=== PATIENT | female | born 1945 | race Caucasian/White ===

== ENCOUNTER → 2016-07-29 | Outpatient (REF) | payer MEDICARE | LOC: M LAB REF 16:45 | PROVIDERS: ATTEND Internal Medicine Medical Oncology | DX: C50.919 Malignant neoplasm of unspecified site of unspecified female breast (principal) ==

== ENCOUNTER → 2016-08-26 | Outpatient (REF) | payer MEDICARE | LOC: M LAB REF 16:39 | PROVIDERS: ATTEND Internal Medicine Medical Oncology | DX: C50.919 Malignant neoplasm of unspecified site of unspecified female breast (principal) ==

== ENCOUNTER → 2016-08-29 | Outpatient (REF) | payer MEDICARE ==
[2016-08-29 17:57] LABS: CALCIUM LEVEL 8.9 MG/DL (8.8-10.2)
== END ==
LOC: M SFHCCLAY 14:04
PROVIDERS: ATTEND Family Medicine
DX: E11.9 Type 2 diabetes mellitus without complications (principal)
CPT/HCPCS: 80048; 83036; G0463

== ENCOUNTER → 2016-09-09 | Outpatient (CLI) | payer MEDICARE ==
[~2016-09-09] MED LIST: GASTROGRAFIN SOLUTION 30ML (Q9963) As Ordered ONE; ISOVUE-370 76% 100ML VIAL (Q9967) As Ordered ONE
--- NOTE | 2016-09-09 16:47 | REP ---
CT CHEST WITH IV CONTRAST: CT chest was performed with the intravenous administration of 100 mL of Isovue-370. Sagittal and coronal reconstruction images are performed. COMPARISON: 02/04/2016. There are scattered interstitial fibrotic changes again identified which are stable. There is scattered pleural thickening particularly along the minor fissure. No new suspicious nodular opacities are seen and there are no acute infiltrates. There is no pleural or pericardial effusion. No significant adenopathy is seen in the axillary regions, mediastinal or hilar regions. Multiple metallic clips are seen in the right axilla. Thoracic aorta is normal in caliber with no aneurysm. There are mild arteriosclerotic calcifications of the thoracic aorta. There is no enlargement of the heart. There are degenerative changes of the spine without definite evidence of a bone lesion. IMPRESSION: Stable CT findings. Chronic fibrotic changes. No new nodule, mass or adenopathy. Signed by Channing Sanchez MD 09/09/2016 05:08 P
--- NOTE | 2016-09-09 16:53 | REP ---
CT ABDOMEN WITH AND WITHOUT IV CONTRAST: TECHNIQUE: Axial noncontrast images through the abdomen followed by contrast-enhanced images through the abdomen using 100 mL Isovue 370 intravenous contrast material, with coronal and sagittal reformations. The liver, spleen, adrenals, pancreas, and kidneys demonstrate no mass. There is no hydronephrosis bilaterally. No renal calculi are seen. Gallbladder is grossly unremarkable. Visualized abdominal aorta is normal in caliber. Mild atherosclerotic calcifications are present. There is no adenopathy. There is no free air or free fluid. There is no evidence of bowel thickening in the visualized abdomen. There is a small umbilical hernia containing fat. There are degenerative changes of the spine with no definite bone lesion. IMPRESSION: No suspicious mass or adenopathy. No free fluid. Small umbilical hernia containing fat. Signed by Channing Sanchez MD 09/09/2016 05:08 P
== END ==
LOC: M RAD 13:10
PROVIDERS: ATTEND Internal Medicine Medical Oncology
DX: C50.919 Malignant neoplasm of unspecified site of unspecified female breast (principal); K42.9 Umbilical hernia without obstruction or gangrene
CPT/HCPCS: 71260; 74170; Q9963; Q9967

== ENCOUNTER → 2016-09-23 | Outpatient (REF) | payer MEDICARE | LOC: M LAB REF 16:09 | PROVIDERS: ATTEND Internal Medicine Medical Oncology | DX: C50.919 Malignant neoplasm of unspecified site of unspecified female breast (principal) ==

== ENCOUNTER → 2016-10-03 | Outpatient (CLI) | payer MEDICARE ==
--- NOTE | 2016-10-03 15:13 | REPMRS ---
Patient History The patient states she had a clinical breast exam in 2016. Patient is postmenopausal and has history of breast cancer at age 56. Family history of breast cancer in sister at age 50 or over and unknown cancer in sister. Digital Mammo Screening Bilat: October 03, 2016 - Exam #: [id number] Bilateral CC and MLO view(s) were taken. Technologist: Bridget Potter, Technologist Prior study comparison: October 01, 2015, right breast digital mammo diagnostic unilateral performed at [facility]. September 20, 2015, bilateral digital mammo screening bilat performed at [facility]. FINDINGS: There are scattered fibroglandular densities. There has been no change in the appearance of the mammogram from the prior studies. There is a mild amount of residual fibroglandular tissue which is fairly symmetric. There is no interval development of dominant mass, architectural distortion, or clustered microcalcification suggestive of malignancy. ASSESSMENT: BI-RADS/ACR category 1 mammogram. Negative. Recommendation Routine screening mammogram in 1 year (for women over age 40). This mammogram was interpreted with the aid of an FDA-approved computer-aided dectection system. Electronically Signed By: Channing Sanchez MD 10/03/16 [id number]
== END ==
LOC: M RAD 14:18
PROVIDERS: ATTEND Internal Medicine Medical Oncology
DX: Z12.31 Encounter for screening mammogram for malignant neoplasm of breast (principal); Z85.3 Personal history of malignant neoplasm of breast; Z78.0 Asymptomatic menopausal state

== ENCOUNTER → 2016-10-24 | Outpatient (CLI) | payer MEDICARE ==
--- NOTE | 2016-10-24 15:45 | REP ---
MRI study of the brain without and with IV gadolinium: History: Breast carcinoma history. Headaches. Vision problems. No comparison brain imaging. Gadolinium enhancement dose: 15 ml of intravenous ProHance. Technique: Axial, sagittal, and coronal imaging planes are utilized. T1 and T2-weighted sequences include spin-echo, fast spin echo, FLAIR, and diffusion weighted sequences. MRI findings: No bony calvarial lesion is seen. There is a mucous retention cyst in the floor of the right maxillary sinus measuring 2.4 cm in greatest diameter. No intraorbital abnormality is seen. The skull base and deep facial soft tissues are unremarkable and symmetric. There is diffuse moderate cerebral atrophy. Small vessel atherosclerotic changes are seen in the periventricular and subcortical white matter of the supratentorial brain bilaterally. Diffusion weighted scans show no evidence to suggest restricted diffusion or acute ischemia. There is no evidence of hemorrhage or mass. Postcontrast images show no abnormal gadolinium enhancement. Impression: No evidence of intracranial mass or other acute intracranial lesion. Mucous retention cyst right maxillary sinus. Signed by Reji Braun MD 10/24/2016 05:59 P
== END ==
LOC: M RAD 12:50
PROVIDERS: ATTEND Internal Medicine Medical Oncology
DX: R51 Headache (principal); Z85.3 Personal history of malignant neoplasm of breast
CPT/HCPCS: 70553; A9576

== ENCOUNTER → 2016-11-20 | Outpatient (REF) | payer MEDICARE ==
[2016-11-20 19:13] LABS: PERCENT SATURATION 23.9 % (13.2-37.4)
== END ==
LOC: M LAB REF 16:29
PROVIDERS: ATTEND Internal Medicine Medical Oncology
DX: C50.919 Malignant neoplasm of unspecified site of unspecified female breast (principal)

== ENCOUNTER → 2016-12-18 | Outpatient (REF) | payer MEDICARE | LOC: M LAB REF 16:23 | PROVIDERS: ATTEND Internal Medicine Medical Oncology | DX: C50.919 Malignant neoplasm of unspecified site of unspecified female breast (principal); Z79.899 Other long term (current) drug therapy ==

== ENCOUNTER → 2017-01-02 | Outpatient (CLI) | payer MEDICARE ==
--- NOTE | 2017-01-02 21:15 | REP ---
RIGHT HUMERUS SERIES: 01/02/2017. Clinical history: Breast carcinoma. Pain. Evaluate for metastatic disease. Findings: Two-views show the shaft of the humerus intact. Humeral head and distal humerus at the elbow without fracture or destructive lesion. No abnormal soft-tissue calcification. Multiple surgical clips in the axilla and upper chest wall/breast on the right. No abnormal soft-tissue calcification. No destructive lesion or fracture of the visualized bones. Impression: 1. No plain film evidence for bony metastatic disease. Signed by Jaden Tolentino MD 01/03/2017 07:35 P
--- NOTE | 2017-01-02 21:53 | REP ---
RIGHT SHOULDER SERIES, COMPLETE: 01/02/2017. Clinical history: Breast carcinoma. Comparison: Right humerus this date. Findings: Three views are provided compared to the humerus series this same date, humeral head is without fracture, focal lesion. No subluxation, scapula, clavicle and ribs without fracture or focal lesion. No effusion, lateral pleural thickening apical pneumothorax. No abnormal soft-tissue calcification noted. Axillary surgical clips on the right on the chest wall clips. Impression: 1. Nose plain film evidence of a bony destructive lesion in the region of the shoulder joint clavicle, ribs and with the axillary surgical clips noted. This patient with known breast cancer. 2. Degenerative changes in the cervical spine seen only in part on the study Signed by Jaden Tolentino MD 01/03/2017 07:42 P
== END ==
LOC: M RAD 17:37
PROVIDERS: ATTEND Internal Medicine Medical Oncology
DX: C50.919 Malignant neoplasm of unspecified site of unspecified female breast (principal); M79.601 Pain in right arm

== ENCOUNTER → 2017-01-15 | Outpatient (REF) | payer MEDICARE ==
[~2017-01-15] MED LIST changes: -GASTROGRAFIN SOLUTION 30ML (Q9963) As Ordered ONE; +GLIP5TAB8 PO; +HYDR12CA PO; +IBRA125C PO; +INSULANT SC; -ISOVUE-370 76% 100ML VIAL (Q9967) As Ordered ONE; +LISI40TAB PO; +METF10004 PO; +OMEP40CA2 PO; +POLY150C4 PO; +SIMV20TA2 PO; +XARE10TA PO
== END ==
LOC: M LAB REF 16:39
PROVIDERS: ATTEND Internal Medicine Medical Oncology
DX: C50.919 Malignant neoplasm of unspecified site of unspecified female breast (principal)

== ENCOUNTER → 2017-01-23 | Outpatient (REF) | payer MEDICARE | LOC: M SFHCCLAY 11:38 | PROVIDERS: ATTEND Family Medicine | DX: E11.9 Type 2 diabetes mellitus without complications (principal) ==

== ENCOUNTER → 2017-01-28 | Outpatient (CLI) | payer MEDICARE ==
[~2017-01-28] VITALS: Ht 165.1 cm; Wt 87.1 kg
[~2017-01-28] MED LIST changes: +LIDOCAINE 2% INJ 100 MG/5 ML SYRINGE As Ordered ONE; +NS 1,000 ML IV ONE; +PROPOFOL 200 MG/20 ML VIAL As Ordered ONE
--- NOTE | 2017-01-28 13:51 | ROOR ---
Patient Name: Bel Santiago Procedure Date: 01/28/2017 1:27 PM Date of : 1945 Age: 71 Room: [facility] Gender: Female Note Status: Finalized Procedure: Upper GI endoscopy Indications: Iron deficiency anemia Providers: Jimy Acosta MD Referring MD: Myles Barber MD Requesting Provider: Medicines: Monitored Anesthesia Care Complications: No immediate complications. Procedure: Pre-Anesthesia Assessment: - The heart rate, respiratory rate, oxygen saturations, blood pressure, adequacy of pulmonary ventilation, and response to care were monitored throughout the procedure. The Endoscope was introduced through the mouth, and advanced to the second part of duodenum. The upper GI endoscopy was accomplished without difficulty. The patient tolerated the procedure well. Findings: The Z-line was variable and was found 40 cm from the incisors. No other significant abnormalities were identified in a careful examination of the stomach. The exam of the duodenum was otherwise normal. Biopsies for histology were taken with a cold forceps in the first portion of the duodenum for evaluation of celiac disease. The esophagus was normal. The stomach was normal. The examined duodenum was normal. Impression: - Z-line variable, 40 cm from the incisors. - Normal esophagus. - Normal stomach. - Normal examined duodenum. - Biopsies were taken with a cold forceps for evaluation of celiac disease. - The examination was otherwise normal. Recommendation: - Patient has a contact number available for emergencies. The signs and symptoms of potential delayed complications were discussed with the patient. Return to normal activities tomorrow. Written discharge instructions were provided to the patient. - High fiber diet. - Discharge patient to home. - Follow an antireflux regimen. - Continue present medications. - Await pathology results. - Telephone GI clinic for pathology results in 1 week. - Check Portal Online for Path Results.([email or web address]) - Return to referring physician. - The findings and recommendations were discussed with the patient's family. Jimy Acosta MD Jimy Acosta MD 01/28/2017 1:51:38 PM This report has been signed electronically. Number of Addenda: 0 Note Initiated On: 01/28/2017 1:27 PM Estimated Blood Loss: Estimated blood loss: none.
--- NOTE | 2017-01-28 14:13 | ROOR ---
Patient Name: Bel Santiago Procedure Date: 01/28/2017 1:28 PM Date of : 1945 Age: 71 [facility]: [facility] Gender: Female Note Status: Finalized Procedure: Total Colonoscopy + Biopsy Polypectomy Indications: Iron deficiency anemia Providers: Jimy Acosta MD Referring MD: Myles Barber MD Requesting Provider: Medicines: Monitored Anesthesia Care Complications: No immediate complications. Procedure: Pre-Anesthesia Assessment: - The heart rate, respiratory rate, oxygen saturations, blood pressure, adequacy of pulmonary ventilation, and response to care were monitored throughout the procedure. The Colonoscope was introduced through the anus and advanced to the cecum, identified by appendiceal orifice and ileocecal valve. The colonoscopy was performed without difficulty. The patient tolerated the procedure well. The quality of the bowel preparation was excellent. Findings: The perianal and digital rectal examinations were normal. Non-bleeding internal hemorrhoids were found during retroflexion. The hemorrhoids were small and Grade I (internal hemorrhoids that do not prolapse). A diminutive polyp was found in the splenic flexure. The polyp was sessile. The polyp was removed with a jumbo cold forceps. Resection and retrieval were complete. The exam was otherwise without abnormality on direct and retroflexion views. Impression: - Non-bleeding internal hemorrhoids. - One diminutive polyp at the splenic flexure, removed with a jumbo cold forceps. Resected and retrieved. - The examination was otherwise normal on direct and retroflexion views. - The exam was otherwise normal to the cecum. Recommendation: - Patient has a contact number available for emergencies. The signs and symptoms of potential delayed complications were discussed with the patient. Return to normal activities tomorrow. Written discharge instructions were provided to the patient. - High fiber diet. - Discharge patient to home. - Continue present medications. - Await pathology results. - Telephone GI clinic for pathology results in 1 week. - Repeat colonoscopy for symptoms only. - Check Portal Online for Path Results.([email or web address]) - The findings and recommendations were discussed with the patient's family. Jimy Acosta MD Jimy Acosta MD 01/28/2017 2:13:01 PM This report has been signed electronically. Number of Addenda: 0 Note Initiated On: 01/28/2017 1:28 PM Estimated Blood Loss: Estimated blood loss: none.
[2017-01-28 14:25] VITALS: BP 97/74
== END | disposition home or self-care (01) ==
LOC: M OPP 12:36
PROVIDERS: ATTEND Internal Medicine Gastroenterology
DX: D50.9 Iron deficiency anemia, unspecified (principal); D12.3 Benign neoplasm of transverse colon; K64.0 First degree hemorrhoids; K22.8 Other specified diseases of esophagus; K58.9 Irritable bowel syndrome, unspecified; I10 Essential (primary) hypertension; E78.5 Hyperlipidemia, unspecified; E10.9 Type 1 diabetes mellitus without complications; R12 Heartburn; Z86.718 Personal history of other venous thrombosis and embolism; F32.9 Major depressive disorder, single episode, unspecified; R06.02 Shortness of breath; M19.90 Unspecified osteoarthritis, unspecified site; Z78.0 Asymptomatic menopausal state; J45.909 Unspecified asthma, uncomplicated; G47.8 Other sleep disorders; G47.30 Sleep apnea, unspecified; R06.83 Snoring; Z85.3 Personal history of malignant neoplasm of breast; Z92.3 Personal history of irradiation; Z92.21 Personal history of antineoplastic chemotherapy; Z88.8 Allergy status to other drugs, medicaments and biological substances; Z91.048 Other nonmedicinal substance allergy status; Z79.84 Long term (current) use of oral hypoglycemic drugs; Z79.4 Long term (current) use of insulin; Z79.01 Long term (current) use of anticoagulants; Z79.899 Other long term (current) drug therapy; Z80.3 Family history of malignant neoplasm of breast; Z80.0 Family history of malignant neoplasm of digestive organs; Z80.41 Family history of malignant neoplasm of ovary

== ENCOUNTER → 2017-02-16 | Outpatient (REF) | payer MEDICARE ==
[~2017-02-16] MED LIST changes: -LIDOCAINE 2% INJ 100 MG/5 ML SYRINGE As Ordered ONE; -NS 1,000 ML IV ONE; -PROPOFOL 200 MG/20 ML VIAL As Ordered ONE
== END ==
LOC: M LAB REF 16:45
PROVIDERS: ATTEND Internal Medicine Medical Oncology
DX: C50.919 Malignant neoplasm of unspecified site of unspecified female breast (principal)

== ENCOUNTER → 2017-03-19 | Outpatient (REF) | payer MEDICARE ==
[2017-03-19 15:00] LABS: PERCENT SATURATION 22.3 % (13.2-45.0)
== END ==
LOC: M LAB REF 10:40
PROVIDERS: ATTEND Internal Medicine Medical Oncology
DX: C50.919 Malignant neoplasm of unspecified site of unspecified female breast (principal)

== ENCOUNTER → 2017-04-07 | Outpatient (CLI) | payer MEDICARE ==
[~2017-04-07] MED LIST changes: +GASTROGRAFIN SOLUTION 30ML (Q9963) As Ordered ONE; +ISOVUE-370 76% 100ML VIAL (Q9967) As Ordered ONE
--- NOTE | 2017-04-07 17:06 | REP ---
HISTORY: History of metastatic breast carcinoma with rising tumor markers. COMPARISON: CT abdomen only obtained 09/09/2016. CONTRAST: 100 mL of Isovue-370. The precontrast enhanced portion of the examination shows hepatic and splenic densities to be within normal limits and unchanged. There are no nephroliths. There are no choleliths. The contrast-enhanced portion of the examination shows the liver, gallbladder, spleen, pancreas, adrenal glands, and kidneys to be unchanged. The abdominal aorta and periaortic regions are unchanged. There is no evidence of a mass or adenopathy. There is no free fluid or free air. There is no significant change in the appearance of the bowel loops or their mesenteries. There is an unchanged, small fat containing ventral hernia. CT PELVIS: The bowel loops and their mesenteries are unchanged, remaining within normal limits. There is no free fluid or free air. There is no pelvic mass or adenopathy. Bone window technique throughout the exam shows chronic hip and spinal degenerative changes, status quo. IMPRESSION: There is no evidence of acute intraabdominal or intrapelvic disease with findings as described above. There has been no significant change from the prior exam. There are unchanged areas of fatty infiltration seen over each gluteal region likely secondary to deep intramuscular/subcutaneous injections of medications. This too is unchanged. Signed by Otto Lopez DO 04/08/2017 03:08 P
--- NOTE | 2017-04-07 17:25 | REP ---
REASON FOR EXAM: History of rising tumor markers with a diagnosis of metastatic breast carcinoma. All prior chest CTs were reviewed. The latest of which is dated 09/09/2016. CONTRAST UTILIZED: 100 mL of Isovue-370. The mediastinum and pulmonary sendy are essentially unchanged compared to the latest prior exams, however, there is a right hilar lymph node which may have increased slightly compared to 01/12/2014. The short axis dimension of this right hilar node measures 1.3 cm and it measured 1 cm on that 01/12/2014 exam. There are no pleural or pericardial effusions. The imaged upper abdomen will be discussed on the abdominal and pelvic CT obtained along with this exam at the same time. The images osseous structures show no significant changes compared to the prior exams. Evaluation of the lung colmenares shows stable areas of parenchymal scarring and pleural thickening. No new abnormal nodules, masses or opacities have developed since 09/09/2016. IMPRESSION: 1. Right hilar lymph node as described above. This needs additional followup. 2. Stable lung field findings as described above. Signed by Otto Lopez DO 04/08/2017 03:08 P
== END ==
LOC: M RAD 14:47
PROVIDERS: ATTEND Internal Medicine Medical Oncology
DX: C50.919 Malignant neoplasm of unspecified site of unspecified female breast (principal); C78.2 Secondary malignant neoplasm of pleura; R59.0 Localized enlarged lymph nodes; J98.4 Other disorders of lung
CPT/HCPCS: 71260; 74178; Q9963; Q9967

== ENCOUNTER → 2017-04-14 | Outpatient (REF) | payer MEDICARE ==
[~2017-04-14] MED LIST changes: -GASTROGRAFIN SOLUTION 30ML (Q9963) As Ordered ONE; -ISOVUE-370 76% 100ML VIAL (Q9967) As Ordered ONE
== END ==
LOC: M SFHCCLAY 13:53
PROVIDERS: ATTEND Family Medicine
DX: E11.9 Type 2 diabetes mellitus without complications (principal)

== ENCOUNTER → 2017-04-16 | Outpatient (REF) | payer MEDICARE | LOC: M LAB REF 12:51 | PROVIDERS: ATTEND Internal Medicine Medical Oncology | DX: C50.919 Malignant neoplasm of unspecified site of unspecified female breast (principal) ==

== ENCOUNTER → 2017-06-25 | Outpatient (REF) | payer MEDICARE | LOC: M SFHCCLAY 11:37 | PROVIDERS: ATTEND Family Medicine | DX: E11.9 Type 2 diabetes mellitus without complications (principal); R41.3 Other amnesia ==

== ENCOUNTER → 2017-07-09 | Outpatient (REF) | payer MEDICARE | LOC: M LAB REF 12:56 | DX: C50.211 Malignant neoplasm of upper-inner quadrant of right female breast (principal); C78.2 Secondary malignant neoplasm of pleura; Z79.818 Long term (current) use of other agents affecting estrogen receptors and estrogen levels | CPT/HCPCS: 86300 ==

== ENCOUNTER → 2017-07-14 | Outpatient (CLI) | payer MEDICARE ==
[~2017-07-14] MED LIST changes: +GASTROGRAFIN SOLUTION 30ML (Q9963) As Ordered; -GLIP5TAB8 PO; -HYDR12CA PO; -IBRA125C PO; -INSULANT SC; +ISOVUE-370 76% 100ML VIAL (Q9967) As Ordered; -LISI40TAB PO; -METF10004 PO; -OMEP40CA2 PO; -POLY150C4 PO; -SIMV20TA2 PO; -XARE10TA PO
== END ==
LOC: M RAD 14:46
DX: C50.919 Malignant neoplasm of unspecified site of unspecified female breast (principal)
CPT/HCPCS: Q9963

== ENCOUNTER → 2017-08-06 | Outpatient (REF) | payer MEDICARE ==
[2017-08-06 15:02] LABS: FERRITIN 30 NG/ML (8-252); IRON (FE) 107 UG/DL (50-170); TOTAL IRON BINDING CAPACITY 334 UG/DL (250-450)
== END ==
LOC: M LAB REF 13:58
DX: C50.919 Malignant neoplasm of unspecified site of unspecified female breast (principal)
CPT/HCPCS: 83550

== ENCOUNTER → 2017-08-27 | Outpatient (REF) | payer MEDICARE ==
[2017-08-27 19:19] LABS: ESTIMATED AVERAGE GLUCOSE 189 MG/DL (60-110); HEMOGLOBIN A1c 8.2 %
== END ==
LOC: M SFHCCLAY 10:51
DX: N76.1 Subacute and chronic vaginitis (principal); Z79.899 Other long term (current) drug therapy
CPT/HCPCS: 83036

== ENCOUNTER → 2017-09-03 | Outpatient (REF) | payer MEDICARE ==
[2017-09-04 10:07] LABS: CA15-3 ANTIGEN 155.3 U/ML (<32.4)
== END ==
LOC: M LAB REF 13:26
DX: C50.919 Malignant neoplasm of unspecified site of unspecified female breast (principal)
CPT/HCPCS: 86300

== ENCOUNTER → 2017-10-01 | Outpatient (REF) | payer MEDICARE ==
[2017-10-02 10:20] LABS: CA15-3 ANTIGEN 155.8 U/ML (<32.4)
== END ==
LOC: M LAB REF 18:03
DX: C50.919 Malignant neoplasm of unspecified site of unspecified female breast (principal)
CPT/HCPCS: 86300

== ENCOUNTER → 2017-11-06 | Outpatient (REF) | payer MEDICARE, BC ==
[2017-11-06 14:42] LABS: FERRITIN 29 NG/ML (8-252); IRON (FE) 89 UG/DL (50-170); PERCENT SATURATION 24.9 % (13.2-45.0); TOTAL IRON BINDING CAPACITY 357 UG/DL (250-450)
[2017-11-06 15:17] LABS: CA15-3 ANTIGEN 184.5 U/ML (<32.4)
== END ==
LOC: M LAB REF 14:05
DX: C50.211 Malignant neoplasm of upper-inner quadrant of right female breast (principal); C78.2 Secondary malignant neoplasm of pleura
CPT/HCPCS: 83550

== ENCOUNTER → 2017-11-11 | Outpatient (CLI) | payer MEDICARE, BC | LOC: M PLARAD 08:39 | DX: C50.211 Malignant neoplasm of upper-inner quadrant of right female breast (principal) | CPT/HCPCS: 78815 ==

== ENCOUNTER → 2017-11-18 | Outpatient (REF) | payer MEDICARE ==
[2017-11-19 13:48] LABS: ESTIMATED AVERAGE GLUCOSE 203 MG/DL (60-110); HEMOGLOBIN A1c 8.7 %
== END ==
LOC: M SFHCCLAY 16:11
DX: E11.9 Type 2 diabetes mellitus without complications (principal)
CPT/HCPCS: 83036

== ENCOUNTER → 2017-12-16 | Outpatient (REF) | payer MEDICARE ==
[2017-12-16 15:13] LABS: FREE T4 1.01 NG/DL (0.76-1.46)
[2017-12-18 12:56] LABS: CA15-3 ANTIGEN 210.2 U/ML (<32.4)
== END ==
LOC: M ONCM 11:12
DX: C50.211 Malignant neoplasm of upper-inner quadrant of right female breast (principal); C78.2 Secondary malignant neoplasm of pleura; R53.83 Other fatigue
CPT/HCPCS: 84443

== ENCOUNTER → 2018-01-14 | Outpatient (REF) | payer MEDICARE ==
[2018-01-19 11:02] LABS: CA15-3 ANTIGEN 195.5 U/ML (<32.4)
== END ==
LOC: M LAB REF 16:28
DX: C50.211 Malignant neoplasm of upper-inner quadrant of right female breast (principal); C78.2 Secondary malignant neoplasm of pleura
CPT/HCPCS: 86300

== ENCOUNTER → 2018-01-15 | Outpatient (CLI) | payer MEDICARE | LOC: M RAD 11:43 | DX: Z12.31 Encounter for screening mammogram for malignant neoplasm of breast (principal); N60.31 Fibrosclerosis of right breast; N60.32 Fibrosclerosis of left breast | CPT/HCPCS: 77067 ==

== ENCOUNTER → 2018-02-12 | Outpatient (CLI) | payer MEDICARE | LOC: M RAD 14:20 | DX: N28.9 Disorder of kidney and ureter, unspecified (principal); C79.81 Secondary malignant neoplasm of breast | CPT/HCPCS: 76775 ==

== ENCOUNTER → 2018-03-11 | Outpatient (REF) | payer MEDICARE ==
[2018-03-11 18:18] LABS: FERRITIN 50 NG/ML (8-252); IRON (FE) 80 UG/DL (50-170); PERCENT SATURATION 25.6 % (13.2-45.0); TOTAL IRON BINDING CAPACITY 312 UG/DL (250-450)
[2018-03-12 13:42] LABS: CA15-3 ANTIGEN 237.3 U/ML (<32.4)
== END ==
LOC: M LAB REF 17:38
DX: C50.211 Malignant neoplasm of upper-inner quadrant of right female breast (principal); C78.2 Secondary malignant neoplasm of pleura
CPT/HCPCS: 83550

== ENCOUNTER → 2018-04-05 | Outpatient (CLI) | payer MEDICARE | LOC: M RAD 12:10 | DX: N18.3 Chronic kidney disease, stage 3 (moderate) (principal) | CPT/HCPCS: 76775 ==

== ENCOUNTER → 2018-04-07 | Outpatient (REF) | payer MEDICARE ==
[2018-04-09 12:38] LABS: CA15-3 ANTIGEN 284.9 U/ML (<32.4)
== END ==
LOC: M LAB REF 17:17
DX: C50.211 Malignant neoplasm of upper-inner quadrant of right female breast (principal); C78.2 Secondary malignant neoplasm of pleura
CPT/HCPCS: 86300

== ENCOUNTER → 2018-04-16 | Outpatient (REF) | payer MEDICARE ==
[2018-04-16 13:50] LABS: BASO % 0.4 % (0.0-1.0); HEMATOCRIT 31.4 % (36.0-47.0); HEMOGLOBIN 10.9 g/dl (12.0-15.5); IMMATURE GRANULOCYTE % 0.4 % (0-3.0); LYMPH # 0.9 10^3/uL (1.5-4.5); LYMPH % 32.6 % (24.0-44.0); MEAN CORPUSCULAR HEMOGLOBIN 35.5 pg (27.0-33.0); MEAN CORPUSCULAR HGB CONC 34.7 g/dl (32.0-36.5); MEAN CORPUSCULAR VOLUME 102.3 fl (80.0-96.0); MONO # 0.1 10^3/uL (0.0-0.8); MONO % 5.1 % (0.0-5.0); NEUTROPHILS # 1.7 10^3/uL (1.8-7.7); NEUTROPHILS % 61.5 % (36.0-66.0); PLATELET COUNT, AUTOMATED 186 10^3/uL (150-450); RED BLOOD COUNT 3.07 10^6/uL (4.00-5.40); RED CELL DISTRIBUTION WIDTH 14.2 % (11.5-14.5); WHITE BLOOD COUNT 2.8 10^3/uL (4.0-10.0)
[2018-04-16 14:05] LABS: ALBUMIN 3.5 GM/DL (3.2-5.2); ALBUMIN/GLOBULIN RATIO 1.06 (1.00-1.93); ALKALINE PHOSPHATASE 63 U/L (45-117); ALT/SGPT 15 U/L (12-78); ANION GAP 6 MEQ/L (8-16); AST/SGOT 12 U/L (7-37); BILIRUBIN,TOTAL 0.4 MG/DL (0.2-1.0); BLOOD UREA NITROGEN 25 MG/DL (7-18); CALCIUM LEVEL 8.6 MG/DL (8.8-10.2); CARBON DIOXIDE LEVEL 32 MEQ/L (21-32); CHLORIDE LEVEL 102 MEQ/L (98-107); CREATININE FOR GFR 1.33 MG/DL (0.55-1.30); GLOMERULAR FILTRATION RATE 41.6 (>39); GLUCOSE, FASTING 164 MG/DL (70-100); POTASSIUM SERUM 3.9 MEQ/L (3.5-5.1); RHEUMATOID FACTOR QUANT < 10.0 IU/ML (<15.0); SODIUM LEVEL 140 MEQ/L (136-145); TOTAL PROTEIN 6.8 GM/DL (6.4-8.2)
[2018-04-16 14:09] LABS: ESTIMATED AVERAGE GLUCOSE 154 MG/DL (60-110)
[2018-04-16 14:16] LABS: ERYTHROCYTE SEDIMENTATION RATE 50 mm/hr (0-30)
[2018-04-16 15:45] LABS: FOLATE 20.5 NG/ML
[2018-04-18 14:13] LABS: VITAMIN E(ALPHA TOCOPHEROL) 11.4 mg/L (9.0-29.0); VITAMIN E(GAMMA TOCOPHEROL) 2.7 mg/L (0.5-4.9)
[2018-04-20 10:07] LABS: PTT LUPUS TYPE ANTICOAG SCREEN 2.6 (0-1.2)
[2018-04-20 10:17] LABS: LUPUS CONFIRM RATIO 1.1
[2018-04-20 10:27] LABS: NORMALIZED RATIO 2.36 (0.00-1.20)
[2018-04-20 13:49] LABS: ALBUMIN 4.04 GM/DL (3.29-5.55); ALBUMIN % 59.4 % (55.8-66.1); ALPHA-1-GLOBULIN % 4.7 % (2.9-4.9); ALPHA-1-GLOBULINS 0.32 GM/DL (0.17-0.41); ALPHA-2-GLOBULINS 0.67 GM/DL (0.42-0.99); ALPHA-2-GLOBULINS % 9.8 % (7.1-11.8); BETA-1-GLOBULINS 0.44 GM/DL (0.28-0.60); BETA-1-GLOBULINS % 6.4 % (4.7-7.2); BETA-2-GLOBULINS 0.32 GM/DL (0.19-0.55); BETA-2-GLOBULINS % 4.7 % (3.2-6.5); GAMMA GLOBULINS 1.02 GM/DL (0.65-1.58)
[2018-04-21 00:07] LABS: ANCA-ATYPICAL <1:20 titer (Neg:<1:20); ANTI DOUBLE STRAND-DNA AB 4 IU/mL (0-9); ANTINUCLEAR ANTIBODIES DIRECT Negative (Negative); CYTOPLASMIC NEUTROP AB ANCA-C <1:20 titer (Neg:<1:20); PERINUCLEAR AB ANCA-P <1:20 titer (Neg:<1:20); SJOGREN'S ANTI SS-A <0.2 AI (0.0-0.9); SJOGREN'S ANTI SS-B <0.2 AI (0.0-0.9)
[2018-04-21 08:48] LABS: VITAMIN B1 LEVEL WHOLE BLOOD 105.3 nmol/L (66.5-200.0); VITAMIN B6,PYRIDOXAL PHOSPHATE 4.4 ug/L (2.0-32.8)
[2018-04-23 09:44] LABS: HEXAGONAL PHASE PHOSPHOLIPID 15 sec (0-11)
== END ==
LOC: M LABNEURO 11:27
DX: G62.9 Polyneuropathy, unspecified (principal)
CPT/HCPCS: 82746

== ENCOUNTER → 2018-05-12 | Outpatient (CLI) | payer MEDICARE | LOC: M RAD 16:32 | DX: C50.211 Malignant neoplasm of upper-inner quadrant of right female breast (principal) | CPT/HCPCS: 71250 ==

== ENCOUNTER → 2018-06-01 | Outpatient (REF) | payer MEDICARE ==
[2018-06-02 11:50] LABS: ESTIMATED AVERAGE GLUCOSE 200 MG/DL (60-110); HEMOGLOBIN A1c 8.6 %
== END ==
LOC: M SFHCCLAY 16:14
DX: E11.22 Type 2 diabetes mellitus with diabetic chronic kidney disease (principal); N18.3 Chronic kidney disease, stage 3 (moderate); Z23 Encounter for immunization
CPT/HCPCS: 83036

== ENCOUNTER → 2018-08-12 | Outpatient (CLI) | payer MEDICARE ==
[~2018-08-12] MED LIST changes: +BASA100I SC; -GASTROGRAFIN SOLUTION 30ML (Q9963) As Ordered; +GASTROGRAFIN SOLUTION 30ML (Q9963) As Ordered ONE; +GLIP5TAB8 PO; +HYDR12CA PO; +HYDR1CAP25 PO; +IBRA100C PO; +IBRA125C PO; +INSULANT SC; -ISOVUE-370 76% 100ML VIAL (Q9967) As Ordered; +LISI40TA PO; +METF10004 PO; +OMEP40CA2 PO; +POLY150C4 PO; +SENO8.6T5 PO; +SIMV20TA2 PO; +VENL150C43 PO; +VICT18IN INJ; +XARE10TA PO
--- NOTE | 2018-08-12 15:20 | REP ---
CT abdomen with oral but without IV contrast: History: Metastatic breast carcinoma with increasing tumor markers. Comparison abdomen CT study is from May 12, 2018. There is no evidence of focal hepatic or splenic lesion. There is increased density material layering in the dependent portion of the gallbladder consistent with gravel like calculi or mineralized sludge. This is unchanged. No adrenal mass is seen. No upper abdominal mass or adenopathy is seen. No retroperitoneal adenopathy is observed. Small and large bowel loops are unremarkable. An epigastric hernia is seen transmitting a small quantity of omental fat. No bony destructive lesion is appreciated. 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 This measures 2.0 cm in greatest diameter. Impression: Gravel like stones versus sludge in the gallbladder. No known evidence of mass or adenopathy. No acute disease. 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 Electronically Signed by Reji Braun MD 08/12/2018 03:51 P
--- NOTE | 2018-08-12 15:31 | REP ---
CT of the chest without IV contrast: Comparison is the most recent prior study 05/12/2018. Clinical history: Carcinoma of the right breast with metastases. Increasing markers. There are nodular densities in the posterior pleura bilaterally have slightly increased in size. No pericardial effusions are identified. No lung masses or nodules are identified. No mediastinal or axillary lymph node enlargement are identified. In the absence of IV contrast the study is insensitive for hilar lymph node enlargement. Surgical clips accompanied by skin thickening in stromal thickening are again noted in the right axilla and right breast. These findings are unchanged. The thoracic aorta is unremarkable. Atheromatous calcification in the mitral annulus is again identified. Cardiac size is normal. There is no pericardial effusion. No lytic, blastic or destructive skeletal changes are identified. Impression: Posterior pleural nodular densities bilaterally are again identified and have slightly increased in size. Otherwise, no other interval change. Electronically Signed by Channing Traore MD 08/12/2018 03:22 P
== END ==
LOC: M RAD 13:13
PROVIDERS: ATTEND Internal Medicine Medical Oncology
DX: C50.119 Malignant neoplasm of central portion of unspecified female breast (principal)
CPT/HCPCS: 71250; 74160; Q9963

== ENCOUNTER → 2018-09-08 | Outpatient (REF) | payer MEDICARE ==
[~2018-09-08] MED LIST changes: +ASPI81CH32 PO; -GASTROGRAFIN SOLUTION 30ML (Q9963) As Ordered ONE
[2018-09-08 18:45] LABS: ALBUMIN 3.3 GM/DL (3.2-5.2); CALCIUM LEVEL 8.6 MG/DL (8.8-10.2); CREATININE FOR GFR 1.13 MG/DL (0.55-1.30); GLOMERULAR FILTRATION RATE 50.1 (>39); PHOSPHORUS LEVEL 3.9 MG/DL (2.5-4.9); POTASSIUM SERUM 4.4 MEQ/L (3.5-5.1)
[2018-09-08 18:47] LABS: HEMOGLOBIN A1c 8.9 %
== END ==
LOC: M SFHCCLAY 13:01
PROVIDERS: ATTEND Family Medicine
DX: E11.22 Type 2 diabetes mellitus with diabetic chronic kidney disease (principal); N18.3 Chronic kidney disease, stage 3 (moderate)

== ENCOUNTER → 2018-09-08 | Outpatient (REF) | payer MEDICARE | LOC: M LABDRAWC 16:25 | PROVIDERS: ATTEND Internal Medicine Hematology & Oncology | DX: C50.919 Malignant neoplasm of unspecified site of unspecified female breast (principal); E11.22 Type 2 diabetes mellitus with diabetic chronic kidney disease; N18.3 Chronic kidney disease, stage 3 (moderate) ==

== ENCOUNTER → 2018-09-15 | Outpatient (CLI) | payer MEDICARE ==
--- NOTE | 2018-09-15 12:00 | REP ---
PET/CT: HISTORY: Restaging breast carcinoma. COMPARISONS: Comparison PET/CT study November 11, 2017. Comparison CT study of the chest is from August 12, 2018. TECHNIQUE: 54 minutes following the intravenous injection of a 8.05 mCi dose of F-18 FDG, three-dimensional PET scintigraphy is acquired from the skull base to the proximal thighs. Triplanar noncontrast CT scanning is acquired through the same anatomic range for attenuation correction, and image registration with scan parameters optimized to minimize radiation exposure to the patient. PET scintigraphy and CT datasets were fused and displayed on a workstation with multiplanar and projection display capability. PET/CT FINDINGS: There is a new tiny right pleural effusion. There is no abnormal hypermetabolic uptake seen in the chest. There is slight asymmetry and minimal uptake in the region of the right pleural effusion with maximum standard uptake value 1.88. This is not hypermetabolic. No hilar or mediastinal hypermetabolic uptake is seen. No abnormal skeletal hypermetabolic uptake is appreciated. Head and neck soft tissues are unremarkable. No abnormal hypermetabolic uptake is seen in the abdomen or pelvis. IMPRESSION: New finding of very small right pleural effusion. There is slightly asymmetric uptake, not frankly hypermetabolic. Otherwise negative PET scintigraphy. Electronically Signed by Reji Braun MD 09/15/2018 12:26 P
== END ==
LOC: M PLARAD 08:43
PROVIDERS: ATTEND Internal Medicine Hematology & Oncology
DX: C50.211 Malignant neoplasm of upper-inner quadrant of right female breast (principal); J90 Pleural effusion, not elsewhere classified
CPT/HCPCS: 78815; A9552

== ENCOUNTER → 2018-09-30 | Outpatient (CLI) | payer MEDICARE ==
--- NOTE | 2018-09-30 15:45 | REP ---
BILATERAL DIAGNOSTIC MAMMOGRAM WITH 3D TOMOSYNTHESIS AND BILATERAL BREAST ULTRASOUND: Patient complains of a palpable lump in the upper outer quadrant of both breasts. These have been present for one month. The patient has a history of right breast cancer at age 56. There is a family history of two sisters with breast cancer. Comparison made with prior study 01/15/2018 as well as multiple other prior exams. The palpable lump is marked on the skin with a triangular marker for each breast. Mild to moderate scattered fibroglandular tissue is again seen with no change since prior study. There is no new mass. Coarse benign type calcifications are seen diffusely bilaterally with no new clusters of microcalcifications. Real-time sonographic evaluation of both breasts performed at the site of the palpable lump in the upper outer quadrant of each breast. In the region of 11-o'clock in the right breast, large benign calcifications are seen. In the left breast, in the region of 12-o'clock at the palpable lump similar macrocalcification is seen. No suspicious mass is seen bilaterally. IMPRESSION: ACR 2 benign. Mammography shows no new mass or suspicious clusters of microcalcifications. There is no suspicious mass sonographically at the site of the reported palpable lump in the upper outer quadrant of each breast. A negative mammogram and ultrasound should not deter biopsy if there is a clinically suspicious palpable mass present. Followup mammogram is recommended in one year. BIRADS 2: BI-RADS/ACR category 2 mammogram. Benign Findings. This mammogram was interpreted with the aid of an FDA-approved computer-aided detection system. The patient states she/he had a clinical breast exam in 09/2018. The patient letter being requested is M2. Electronically Signed by Channing Sanchez MD 09/30/2018 04:10 P
== END ==
LOC: M RAD 12:21
PROVIDERS: ATTEND Nurse Practitioner Family
DX: N63.11 Unspecified lump in the right breast, upper outer quadrant (principal); N63.21 Unspecified lump in the left breast, upper outer quadrant; Z85.3 Personal history of malignant neoplasm of breast; Z80.3 Family history of malignant neoplasm of breast; R92.0 Mammographic microcalcification found on diagnostic imaging of breast; R92.1 Mammographic calcification found on diagnostic imaging of breast
CPT/HCPCS: 76642; 77066; G0279

== ENCOUNTER → 2018-10-13 | Outpatient (CLI) | payer MEDICARE ==
[~2018-10-13] MED LIST changes: -ASPI81CH32 PO; +ASPI81CH33 PO
--- NOTE | 2018-10-13 14:50 | REP ---
WHOLE BODY BONE SCAN: HISTORY: Bone pain. Metastatic breast carcinoma. Comparison bone scan study: October 26, 2015. TECHNIQUE: 21.9 mCi of technetium 99m MDP is injected and standard whole body bone scan imaging is acquired. SCINTIGRAPHIC FINDINGS: There is an arthritic pattern of increased uptake in the knees bilaterally unchanged from the comparison study. Arthritic uptake pattern is again seen in the wrists and shoulders. Mild degenerative disc uptake is seen in the mid lumbar spine. There is uptake in bilateral kidneys and in the urinary bladder. There is no evidence to suggest skeletal metastatic disease. IMPRESSION: Arthritic and degenerative disc uptake pattern. No evidence to suggest skeletal metastatic disease. Electronically Signed by Reji Braun MD 10/13/2018 02:58 P
== END ==
LOC: M RAD 09:33
PROVIDERS: ATTEND Nurse Practitioner Family
DX: C50.919 Malignant neoplasm of unspecified site of unspecified female breast (principal); M85.89 Other specified disorders of bone density and structure, multiple sites; M51.86 Other intervertebral disc disorders, lumbar region; M89.8X9 Other specified disorders of bone, unspecified site
CPT/HCPCS: 78306; A9503

== ENCOUNTER → 2018-11-18 | Outpatient (REF) | payer MEDICARE | LOC: M LAB REF 14:24 | PROVIDERS: ATTEND Surgery | DX: D48.61 Neoplasm of uncertain behavior of right breast (principal); D48.62 Neoplasm of uncertain behavior of left breast ==

== ENCOUNTER → 2018-12-16 | Outpatient (CLI) | payer MEDICARE ==
[~2018-12-16] MED LIST changes: +CETI10TA4 PO; +FASL250I2 IM; +HYDR0.2O4 EX; +PROHANCE 279.3MG/ML 15ML VIAL (A9576) As Ordered ONE; +PROHANCE 279.3MG/ML 5ML VIAL (A9576) As Ordered ONE; +TYLE650T35 PO; +VICT18IN SC; +[UNRECOGNIZED DRUG - CODE] PV
--- NOTE | 2018-12-16 12:40 | REP ---
MRI BRAIN WITHOUT AND WITH CONTRAST: HISTORY: Breast carcinoma. CONTRAST: ProHance 8 mL. COMPARISON: 10/14/2016. Areas of increased signal intensity on T2-weighted images are present in the periventricular and subcortical white matter and [place]. This represents small vessel ischemic disease. There is no intraparenchymal hemorrhage, infarct, mass, or midline shift. There is no abnormal enhancement. The ventricular system and cortical sulci are dilated consistent with mild volume loss. There is no extracerebral collection. A retention cyst is present in the right maxillary sinus. IMPRESSION: 1. Small vessel ischemic disease. 2. Mild volume loss. Electronically Signed by Jluis Moore MD 12/16/2018 12:41 P
== END ==
LOC: M RAD 10:20
PROVIDERS: ATTEND Internal Medicine Hematology & Oncology
DX: C50.819 Malignant neoplasm of overlapping sites of unspecified female breast (principal); R47.9 Unspecified speech disturbances; R41.3 Other amnesia; I67.82 Cerebral ischemia
CPT/HCPCS: 70553; A9576

== ENCOUNTER 2018-12-23 12:42 | Day surgery (SDC) | payer MEDICARE ==
[~2018-12-23] VITALS: Ht 160 cm; Wt 81.6 kg
[~2018-12-23 12:42] MED LIST changes: +BALANCED SALT IRRIGATION SOLUTION 500ML BAG (FOR OR EYE MACHINE) As Ordered ONE; +CEFUROXIME 1MG/0.1ML INTRACAMERAL INJ As Ordered ONE; +DUOVISC (0.50ML VISCOAT/0.55ML PROVISC) OPHTH KIT As Ordered ONE; +LIDOCAINE 0.75%/EPINEPHRINE 0.025% IN BSS 1ML SYR INTRACAMERAL (OR ONLY) As Ordered ONE; +OFLOXACIN 0.3 % (OCUFLOX) OPTH SOL 5ML OS ONE; +PHENYLEPHRINE 2.5% OPHTH SOL 2ML OS ONE; +POVIDONE-IODINE 5% OPHTH PREP SOL 30ML As Ordered ONE; -PROHANCE 279.3MG/ML 15ML VIAL (A9576) As Ordered ONE; -PROHANCE 279.3MG/ML 5ML VIAL (A9576) As Ordered ONE; +PROPARACAINE 0.5% OPHTH SOL 15ML OS ONE; +TROPICAMIDE 1% OPHTH SOLN 2ML OS ONE
[2018-12-23] MEDS ORDERED: fentaNYL 100 MCG/2 ML INJECTION (J3010) As Ordered ONE (13:53)
[2018-12-23] MEDS ORDERED: MIDAZOLAM INJ 2 MG/2 ML VIAL (J2250) As Ordered ONE (13:53)
[2018-12-23 14:30] VITALS: BP 143/65
--- NOTE | 2018-12-24 07:52 | RO ---
DATE OF PROCEDURE: 12/23/2018 PREOPERATIVE DIAGNOSIS: 1. Visually significant nuclear sclerotic cataract left eye. POSTOPERATIVE DIAGNOSIS: 1. Visually significant nuclear sclerotic cataract left eye. PROCEDURE: 1. Cataract extraction with use of phacoemulsification and placement of intraocular lens, AU00T0 21.5 D, left eye. SURGEON: Macho Acosta DO WATER REUSE PROGRAM MANAGER: None. ANESTHESIA: Local with monitored anesthesia care (MAC). COMPLICATIONS: None. POSTOPERATIVE CONDITION: Stable. INDICATIONS FOR SURGERY: 1. Blurred vision affecting patients activities of daily living. DESCRIPTION OF PROCEDURE: The patient was seen in the preoperative area and properly identified. The correct operative eye was identified and marked. The patient received topical anesthetic, antibiotics, and topical dilating drops. The patient was then transferred to the operating room. The correct side was re-identified, and a time-out was performed. The eye was prepped and draped in a sterile fashion. The eyelids were isolated with Tegaderm tape, and the lids were held open with an adjustable speculum. A 1.0 mm paracentesis incision was made. Intraocular preservative-free Shugarcaine was then injected into the anterior chamber. Viscoelastic was then injected into the anterior chamber through the paracentesis. Using a 2.4 mm sharp-tipped keratome, the anterior chamber was entered via a temporal clear cornea incision. A continuous curvilinear capsulorrhexis was created with Utrata forceps. Hydrodissection was performed with balanced salt solution (BSS) on a blunt cannula until the nucleus was able to rotate freely. The crystalline lens was phacoemulsified and aspirated. Irrigation/aspiration was used to remove the cortical material. Cohesive viscoelastic was placed into the capsular bag to deepen it. The implant was placed into the capsular bag and allowed to unfold. Placement was confirmed by visualizing the anterior capsulorrhexis. Irrigation/aspiration was used to remove the viscoelastic. The clear corneal incision was hydrated with BSS on a blunt cannula. The lens was well positioned. The incisions were then tested for leaks and found to be negative. The eye was then palpated for appropriate pressure and adjusted accordingly with BSS. The eyelid speculum was then carefully removed. A shield was placed over the eye. The patient tolerated the procedure well and was discharged to the recovery unit in a stable condition.
== END 2018-12-23 14:48 | disposition home or self-care (01) ==
LOC: M SDC 12:42
PROVIDERS: ATTEND Ophthalmology
DX: H25.12 Age-related nuclear cataract, left eye (principal); I10 Essential (primary) hypertension; E78.5 Hyperlipidemia, unspecified; K58.8 Other irritable bowel syndrome; E11.9 Type 2 diabetes mellitus without complications; G47.30 Sleep apnea, unspecified; J45.909 Unspecified asthma, uncomplicated; Z79.4 Long term (current) use of insulin; Z79.899 Other long term (current) drug therapy; Z79.82 Long term (current) use of aspirin; Z88.8 Allergy status to other drugs, medicaments and biological substances
CPT/HCPCS: 66984; J2250; J3010; V2632

== ENCOUNTER 2019-01-06 11:46 | Day surgery (SDC) | payer MEDICARE ==
[~2019-01-06] VITALS: Ht 160 cm; Wt 79.8 kg
[~2019-01-06 11:46] MED LIST changes: +OFLOXACIN 0.3 % (OCUFLOX) OPTH SOL 5ML OD ONE; -OFLOXACIN 0.3 % (OCUFLOX) OPTH SOL 5ML OS ONE; +PHENYLEPHRINE 2.5% OPHTH SOL 2ML OD ONE; -PHENYLEPHRINE 2.5% OPHTH SOL 2ML OS ONE; +PROPARACAINE 0.5% OPHTH SOL 15ML OD ONE; -PROPARACAINE 0.5% OPHTH SOL 15ML OS ONE; +TROPICAMIDE 1% OPHTH SOLN 2ML OD ONE; -TROPICAMIDE 1% OPHTH SOLN 2ML OS ONE
[2019-01-06] MEDS ORDERED: MIDAZOLAM INJ 2 MG/2 ML VIAL (J2250) As Ordered ONE (12:43)
[2019-01-06] MEDS ORDERED: fentaNYL 100 MCG/2 ML INJECTION (J3010) As Ordered ONE (12:43)
[2019-01-06] MEDS ORDERED: HumaLOG INSULIN (NovoLOG) PER UNIT As Ordered ONE (12:55)
[2019-01-06] MEDS ORDERED: HumaLOG INSULIN (NovoLOG) PER UNIT SC ONE (13:15)
[2019-01-06 14:06] VITALS: BP 144/63
--- NOTE | 2019-01-07 08:20 | RO ---
DATE OF PROCEDURE: 01/06/2019 PREOPERATIVE DIAGNOSIS: 1. Visually significant nuclear sclerotic cataract right eye. POSTOPERATIVE DIAGNOSIS: 1. Visually significant nuclear sclerotic cataract right eye. PROCEDURE: 1. Cataract extraction with use of phacoemulsification and placement of intraocular lens, [id number], 22.0 D, right eye. SURGEON: Macho Acosta DO WELDER/INSTALLER: None. ANESTHESIA: Local with monitored anesthesia care (MAC). COMPLICATIONS: None. POSTOPERATIVE CONDITION: Stable. INDICATIONS FOR SURGERY: 1. Blurred vision affecting patients activities of daily living. DESCRIPTION OF PROCEDURE: The patient was seen in the preoperative area and properly identified. The correct operative eye was identified and marked. The patient received topical anesthetic, antibiotics, and topical dilating drops. The patient was then transferred to the operating room. The correct side was re-identified, and a time-out was performed. The eye was prepped and draped in a sterile fashion. The eyelids were isolated with Tegaderm tape, and the lids were held open with an adjustable speculum. A 1.0 mm paracentesis incision was made. Intraocular preservative-free Shugarcaine was then injected into the anterior chamber. Viscoelastic was then injected into the anterior chamber through the paracentesis. Using a 2.4 mm sharp-tipped keratome, the anterior chamber was entered via a temporal clear cornea incision. A continuous curvilinear capsulorrhexis was created with Utrata forceps. Hydrodissection was performed with balanced salt solution (BSS) on a blunt cannula until the nucleus was able to rotate freely. The crystalline lens was phacoemulsified and aspirated. Irrigation/aspiration was used to remove the cortical material. Cohesive viscoelastic was placed into the capsular bag to deepen it. The implant was placed into the capsular bag and allowed to unfold. Placement was confirmed by visualizing the anterior capsulorrhexis. Irrigation/aspiration was used to remove the viscoelastic. The clear corneal incision was hydrated with BSS on a blunt cannula. The lens was well positioned. The incisions were then tested for leaks and found to be negative. The eye was then palpated for appropriate pressure and adjusted accordingly with BSS. The eyelid speculum was then carefully removed. A shield was placed over the eye. The patient tolerated the procedure well and was discharged to the recovery unit in a stable condition.
== END 2019-01-06 14:17 | disposition home or self-care (01) ==
LOC: M SDC 11:46
PROVIDERS: ATTEND Ophthalmology
DX: H25.11 Age-related nuclear cataract, right eye (principal); I10 Essential (primary) hypertension; E78.5 Hyperlipidemia, unspecified; E11.9 Type 2 diabetes mellitus without complications; K21.9 Gastro-esophageal reflux disease without esophagitis; G47.30 Sleep apnea, unspecified; Z79.4 Long term (current) use of insulin; Z79.82 Long term (current) use of aspirin; Z79.899 Other long term (current) drug therapy
CPT/HCPCS: 66984; J2250; J3010; V2632

== ENCOUNTER → 2019-02-23 | Outpatient (REF) | payer MEDICARE ==
[~2019-02-23] MED LIST changes: -BALANCED SALT IRRIGATION SOLUTION 500ML BAG (FOR OR EYE MACHINE) As Ordered ONE; -CEFUROXIME 1MG/0.1ML INTRACAMERAL INJ As Ordered ONE; -DUOVISC (0.50ML VISCOAT/0.55ML PROVISC) OPHTH KIT As Ordered ONE; -FASL250I2 IM; +FULV250S IM; -LIDOCAINE 0.75%/EPINEPHRINE 0.025% IN BSS 1ML SYR INTRACAMERAL (OR ONLY) As Ordered ONE; -OFLOXACIN 0.3 % (OCUFLOX) OPTH SOL 5ML OD ONE; -PHENYLEPHRINE 2.5% OPHTH SOL 2ML OD ONE; -POVIDONE-IODINE 5% OPHTH PREP SOL 30ML As Ordered ONE; -PROPARACAINE 0.5% OPHTH SOL 15ML OD ONE; -TROPICAMIDE 1% OPHTH SOLN 2ML OD ONE
[2019-02-23 17:00] LABS: HEMOGLOBIN A1c 8.9 %
== END ==
LOC: M SFHCCLAY 15:26
PROVIDERS: ATTEND Family Medicine
DX: E11.22 Type 2 diabetes mellitus with diabetic chronic kidney disease (principal)

== ENCOUNTER → 2019-03-15 | Outpatient (CLI) | payer MEDICARE ==
--- NOTE | 2019-03-15 14:44 | REP ---
PET/CT: HISTORY: Restaging metastatic breast carcinoma. Elevated tumor markers. COMPARISONS: PET/CT September 15, 2018 as well as November 11, 2017. TECHNIQUE: 45 minutes following the intravenous injection of a 8.09 mCi dose of F-18 FDG, three-dimensional PET scintigraphy is acquired from the skull base to the proximal thighs. Triplanar noncontrast CT scanning is acquired through the same anatomic range for attenuation correction, and image registration with scan parameters optimized to minimize radiation exposure to the patient. PET scintigraphy and CT datasets were fused and displayed on a workstation with multiplanar and projection display capability. PET/CT FINDINGS: Head and neck soft tissues are unremarkable. There is mild arthritic uptake in the periarticular soft tissues about the shoulders, particularly on the left. There is no evidence of hypermetabolic axillary adenopathy. Postoperative changes are seen in the right axilla and right breast. There is a small quantity of right pleural fluid without discernible hypermetabolic uptake. No hilar or mediastinal hypermetabolic uptake is observed. No abnormal pulmonary parenchymal hypermetabolic uptake is seen. In the abdomen and pelvis, normal hepatic, splenic, gastrointestinal, and genitourinary FDG distribution is seen. No abnormal hypermetabolic uptake is seen in the abdomen or pelvis. No abnormal skeletal hypermetabolic uptake is appreciated. IMPRESSION: No abnormal hypermetabolic uptake is seen. There is a small quantity of right pleural fluid. Electronically Signed by Reji Braun MD 03/15/2019 03:31 P
== END ==
LOC: M PLARAD 10:42
PROVIDERS: ATTEND Nurse Practitioner Family
DX: C50.911 Malignant neoplasm of unspecified site of right female breast (principal); C79.89 Secondary malignant neoplasm of other specified sites
CPT/HCPCS: 78815; A9552

== ENCOUNTER → 2019-05-05 | Outpatient (REF) | payer MEDICARE ==
[~2019-05-05] MED LIST changes: -OMEP40CA2 PO; +OMEP40CA97 PO
[2019-05-05 18:19] LABS: FOLATE 19.8 NG/ML
== END ==
LOC: M LAB REF 16:42
PROVIDERS: ATTEND Nurse Practitioner Family
DX: N18.9 Chronic kidney disease, unspecified (principal); D63.1 Anemia in chronic kidney disease

== ENCOUNTER → 2019-05-20 | Outpatient (CLI) | payer MEDICARE ==
--- NOTE | 2019-05-20 14:27 | REP ---
Left humerus: Two views. History: Persistent pain. Findings: Two views of the left humerus demonstrate advanced glenohumeral osteoarthritis with spur formation and sclerosis. Subcortical cysts are seen in the humeral head. Periarticular soft tissue calcifications are noted. There is a possible 8 mm loose body just inferior to the acromion process. There is mild diffuse osteopenia. No fracture or other acute erosive abnormalities seen. Impression: Shoulder osteoarthritis with periarticular soft-tissue calcification. There is a possible loose body just inferior to the acromion process. Fuse osteopenia. No acute abnormality. Electronically Signed by eRji Braun MD 05/20/2019 02:19 P
== END ==
LOC: M RAD 11:47
PROVIDERS: ATTEND Nurse Practitioner Family
DX: M19.012 Primary osteoarthritis, left shoulder (principal); C50.911 Malignant neoplasm of unspecified site of right female breast

== ENCOUNTER → 2019-06-01 | Outpatient (REF) | payer MEDICARE ==
[2019-06-02 11:42] LABS: CALCIUM LEVEL 8.6 MG/DL (8.8-10.2); CREATININE FOR GFR 1.32 MG/DL (0.55-1.30); GLOMERULAR FILTRATION RATE 41.9 (>39); POTASSIUM SERUM 4.1 MEQ/L (3.5-5.1)
[2019-06-02 12:42] LABS: MAU/CREAT RATIO 2789.1 MCG/MG (0.0-30.0)
[2019-06-02 14:00] LABS: HEMOGLOBIN A1c 9.1 %
== END ==
LOC: M SFHCCLAY 14:33
PROVIDERS: ATTEND Family Medicine
DX: E11.9 Type 2 diabetes mellitus without complications (principal); Z23 Encounter for immunization
CPT/HCPCS: 80048; 82043; 82607; 83036; 90682; G0008; G0463

== ENCOUNTER → 2019-06-30 | Outpatient (REF) | payer MEDICARE ==
[~2019-06-30] MED LIST changes: +JARD1TAB PO; +LISI-542 PO; -SIMV20TA2 PO; +SIMV20TA22 PO
[2019-07-01 11:44] LABS: CALCIUM LEVEL 8.7 MG/DL (8.8-10.2); CREATININE FOR GFR 1.64 MG/DL (0.55-1.30); GLOMERULAR FILTRATION RATE 32.5 (>39); POTASSIUM SERUM 3.9 MEQ/L (3.5-5.1)
== END ==
LOC: M SFHCCLAY 16:09
PROVIDERS: ATTEND Family Medicine
DX: E11.21 Type 2 diabetes mellitus with diabetic nephropathy (principal)
CPT/HCPCS: 80048; G0463

== ENCOUNTER → 2019-08-16 | Outpatient (REF) | payer MEDICARE ==
[2019-08-16 15:51] LABS: CREATININE FOR GFR 1.25 MG/DL (0.55-1.30); GLOMERULAR FILTRATION RATE 44.5 (>39)
== END ==
LOC: M LAB REF 14:40 → M ONCM 14:40
PROVIDERS: ATTEND Physician Assistant Surgical
DX: M19.012 Primary osteoarthritis, left shoulder (principal)

== ENCOUNTER → 2019-09-05 | Outpatient (CLI) | payer MEDICARE ==
[~2019-09-05] MED LIST changes: +HEPARIN 1,000 UNITS/ML 10ML VIAL (FOR RADIOLOGY& DIALYSIS ONLY)(J1644-10) As Ordered ONE; +ISOVUE-300 61% 50ML VIAL (Q9967) As Ordered ONE; +LIDOCAINE 1% MDV 20ML VIAL As Ordered ONE; +MIDAZOLAM INJ 2 MG/2 ML VIAL (J2250) As Ordered ONE; +fentaNYL 100 MCG/2 ML INJECTION (J3010) As Ordered ONE
--- NOTE | 2019-09-05 11:59 | ROOPDOC ---
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 Ultrasound-guided access right common femoral artery 2. Arteriogram of the aortic arch 3. Selection right innominate artery and arteriogram 4. Selection right subclavian artery and arteriogram 5. Mynx closure right common femoral artery SURGEON: Jackeline Kimball MD ANESTHESIA: Local anesthesia 5 mL lidocaine. Moderate intravenous conscious sedation was supervised by Dr. Kimball. The patient was independently monitored by registered nurse a sign in the department of radiology using automated blood pressure, EKG, and pulse oximetry. The patient's detailed sedation record is probably stored in the hospital information system. The following is the brief sedation record: Start time 10:42, stop time 11:24, Versed 0.5 mg IV, fentanyl 50 g IV. CONTRAST: 24 mL Isovue-300 INDICATION FOR PROCEDURE: Ms. cartwright is a very pleasant 74-year-old patient with a recent history of dizzy spells. She's had a few episodes of falling out of bed and having difficulty getting back up due to dizziness, and she's also had an episode of dizziness after trying to take shirt off over her head and subsequently becoming quite dizzy. She denies right upper extremity claudication and has excellent perfusion to the right hand with 3+ radial pulse. An MRA suggested possible stenosis at the origin of the right subclavian and the right vertebral artery. We discussed the risks benefits and alternatives to an arteriogram of the aortic arch and a right subclavian arteriogram with possible angioplasty possible stent. And the patient was agreeable to proceed and informed consent was obtained. INTERPRETATION: 1. The aortic arch is widely patent with no flow limitations noted. The innominate artery originates fairly proximally on the ascending aorta and shows widely patent flow in today common carotid artery and the subclavian artery. No stenosis is noted at the origin of the subclavian artery. There is widely patent flow through large subclavian artery into the right upper extremity. The vertebral artery has some mild plaque at its origin, but this does not limit flow and flow is antegrade. Distal to this focal plaque at the origin, the vessel is large and well perfused. 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 The left vertebral artery is also widely patent. Images were taken with the patient's head to the right and to the left and no changes in vertebral flow were noted. The patient experienced no dizziness during the procedure, even with changes in head position. REPORT OF OPERATION: The patient was brought to the angiographic suite in stable condition and placed supine on the fluoroscopic table. Her bilateral groins were prepped and draped in a sterile fashion. A timeout was performed. Sedation was administered without consultation. We utilize light sedation to that we can continue to monitor the patient's neuro status as we would be working in the right innominate artery and around the right carotid artery. Local anesthesia was administered to skin and subcutaneous tissue over the right femoral vessel and a microneedle was used to access the artery under ultrasound guidance. A wire was passed through this access and a micro-sheath was placed. Through this access, under fluoroscopic guidance, we advanced Glidewire into the aortic arch into the ascending aorta. We exchanged R sheath for 6 Yemeni sheath and flushed the sheath was saline. We passed a pigtail catheter into the ascending aorta and and arteriogram of the aortic arch was performed. Please interpretation above. We attempted to cross into the innominate artery and the subclavian artery with the Glidewire, but due to challenges with the angulation of the origin of the innominate on the ascending aorta, this proved difficult. We then exchanged to sheath for a 70 cm 6 Yemeni sheath and flushed the sheath was saline. This was helpful to stabilize the wire within the aortic arch. We attempted to access with a Gleich cath, but we could only it is far as the origin of the right subclavian and it was challenging to get the wire to advance further due to angulation. We exchanged for a modified pigtail in the shape of a rim catheter. We advanced this over the wire and were able to place the catheter in the innominate artery. An arteriogram was performed, please interpretation above. We then advanced the catheter into the right subclavian artery and arteriograms were performed with the head in the right facing position in the left facing position. The findings are above. During repositioning of the patient she did not experience any dizzy spells or complaints. She remained alert and oriented 3 with full function of her bilateral upper and lower extremities and vision intact throughout the procedure. Care was taken not to over stimulate the carotid artery with the wire while trying to access the right subclavian artery. We then removed the catheter over the wire and flushed the sheath was saline. The sheath was exchanged for a short 6 Yemeni sheath in a Mynx closure device was deployed under fluoroscopic guidance with good hemostasis. Pressure was held at the right groin for 10 minutes and good hemostasis was noted. The patient was taken to recovery in stable condition. She tolerated the procedure and the sedation well. ESTIMATED BLOOD LOSS: Approximately 2 mL. COMPLICATIONS: None. PLAN: We'll plan to see the patient back in a week to check her groin access site. Although it can be frustrating if we do not elicit a diagnosis for her dizziness, it is always good to no that her arterial disease is not severe in the subclavian or vertebral artery. She can continue with workup with her primary care physician for her dizzy spells. She can continue her home medications and resume her preoperative diet. JACKELINE KIMBALL MD Sep 05, 2019 11:59
[2019-09-05 15:30] VITALS: BP 156/70
== END ==
LOC: M IRPRO 08:51
PROVIDERS: ATTEND Surgery Vascular Surgery
DX: R42 Dizziness and giddiness (principal); J44.9 Chronic obstructive pulmonary disease, unspecified; J45.909 Unspecified asthma, uncomplicated; Z85.3 Personal history of malignant neoplasm of breast

== ENCOUNTER → 2019-09-13 | Outpatient (REF) | payer MEDICARE ==
[~2019-09-13] MED LIST changes: -HEPARIN 1,000 UNITS/ML 10ML VIAL (FOR RADIOLOGY& DIALYSIS ONLY)(J1644-10) As Ordered ONE; -ISOVUE-300 61% 50ML VIAL (Q9967) As Ordered ONE; -LIDOCAINE 1% MDV 20ML VIAL As Ordered ONE; -MIDAZOLAM INJ 2 MG/2 ML VIAL (J2250) As Ordered ONE; -fentaNYL 100 MCG/2 ML INJECTION (J3010) As Ordered ONE
[2019-09-13 15:49] LABS: HEMOGLOBIN A1c 9.3 %
== END ==
LOC: M SFHCCLAY 11:37
PROVIDERS: ATTEND Family Medicine
DX: E11.22 Type 2 diabetes mellitus with diabetic chronic kidney disease (principal); I10 Essential (primary) hypertension

== ENCOUNTER → 2019-10-04 | Outpatient (CLI) | payer MEDICARE ==
--- NOTE | 2019-10-04 11:54 | REPMRS ---
Patient History The patient states she has not had a clinical breast exam in over a year. Family history of breast cancer at age 50 or over in sister, unknown cancer in sister. The patient has a personal history of breast cancer. Digital Woman Screen Mammo: October 04, 2019 - Exam #: [id number] Bilateral CC and MLO view(s) were taken. Technologist: Carol Lema, Technologist Prior study comparison: September 30, 2018, digital mammo diagnostic bilateral, performed at [facility]. January 15, 2018, bilateral digital mammo screening bilat, performed at [facility]. October 03, 2016, bilateral digital mammo screening bilat, performed at [facility]. FINDINGS: There are scattered fibroglandular densities. There are stable post-treatment changes in the right breast. Right axillary surgical clips are again noted. There has been no change in the appearance of the mammogram from the prior studies. There is a mild amount of scattered fibroglandular density which is fairly symmetric. There is no interval development of dominant mass, architectural distortion, or grouped microcalcification suggestive of malignancy. 3-D tomosynthesis shows no additional findings. Assessment: BI-RADS/ACR category 2 mammogram. Benign Findings. Recommendation Routine screening mammogram of both breasts in 1 year (for women over age 40). This mammogram was interpreted with the aid of an FDA-approved computer-aided dectection system. Electronically Signed By: Damien Braun MD 10/04/19 [id number]
== END ==
LOC: M WHC 10:09
PROVIDERS: ATTEND Internal Medicine Hematology
DX: Z12.31 Encounter for screening mammogram for malignant neoplasm of breast (principal); Z80.3 Family history of malignant neoplasm of breast; Z85.3 Personal history of malignant neoplasm of breast

== ENCOUNTER → 2019-11-09 | Outpatient (CLI) | payer MEDICARE ==
[2019-11-09 16:36] LABS: BASO % 0.3 % (0.0-1.0); HEMATOCRIT 38.1 % (36.0-47.0); HEMOGLOBIN 12.9 g/dl (12.0-15.5); LYMPH # 1.2 10^3/uL (1.5-5.0); LYMPH % 43.4 % (24.0-44.0); MEAN CORPUSCULAR HEMOGLOBIN 33.4 pg (27.0-33.0); MEAN CORPUSCULAR HGB CONC 33.9 g/dl (32.0-36.5); MEAN CORPUSCULAR VOLUME 98.7 fl (80.0-96.0); MONO # 0.3 10^3/uL (0.0-0.8); MONO % 8.7 % (0.0-5.0); NEUTROPHILS # 1.4 10^3/uL (1.5-8.5); NEUTROPHILS % 47.3 % (36.0-66.0); PLATELET COUNT, AUTOMATED 135 10^3/uL (150-450); RED BLOOD COUNT 3.86 10^6/uL (4.00-5.40); WHITE BLOOD COUNT 2.9 10^3/uL (4.0-10.0)
[2019-11-09 17:15] LABS: ALBUMIN 3.5 GM/DL (3.2-5.2); BILIRUBIN,TOTAL 0.4 MG/DL (0.2-1.0); CALCIUM LEVEL 9.1 MG/DL (8.8-10.2); CREATININE FOR GFR 1.31 MG/DL (0.55-1.30); GLOMERULAR FILTRATION RATE 42.1 (>39); POTASSIUM SERUM 4.4 MEQ/L (3.5-5.1); TOTAL PROTEIN 6.8 GM/DL (6.4-8.2)
[2019-11-11 10:48] LABS: CA15-3 ANTIGEN 549.6 U/ML (<32.4)
== END ==
LOC: M LAB 15:46
PROVIDERS: ATTEND Internal Medicine Hematology
DX: C50.919 Malignant neoplasm of unspecified site of unspecified female breast (principal)

== ENCOUNTER → 2019-12-08 | Outpatient (CLI) | payer MEDICARE ==
[2019-12-08 13:47] LABS: BASO % 0.3 % (0.0-1.0); HEMATOCRIT 36.8 % (36.0-47.0); HEMOGLOBIN 12.4 g/dl (12.0-15.5); LYMPH # 1.1 10^3/uL (1.5-5.0); LYMPH % 37.3 % (24.0-44.0); MEAN CORPUSCULAR HEMOGLOBIN 33.9 pg (27.0-33.0); MEAN CORPUSCULAR HGB CONC 33.7 g/dl (32.0-36.5); MEAN CORPUSCULAR VOLUME 100.5 fl (80.0-96.0); MONO # 0.3 10^3/uL (0.0-0.8); MONO % 9.8 % (0.0-5.0); NEUTROPHILS # 1.5 10^3/uL (1.5-8.5); NEUTROPHILS % 52.3 % (36.0-66.0); PLATELET COUNT, AUTOMATED 107 10^3/uL (150-450); RED BLOOD COUNT 3.66 10^6/uL (4.00-5.40)
[2019-12-08 14:19] LABS: ALBUMIN 3.4 GM/DL (3.2-5.2); BILIRUBIN,TOTAL 0.3 MG/DL (0.2-1.0); CALCIUM LEVEL 8.7 MG/DL (8.8-10.2); CREATININE FOR GFR 1.35 MG/DL (0.55-1.30); GLOMERULAR FILTRATION RATE 40.7 (>39); POTASSIUM SERUM 4.2 MEQ/L (3.5-5.1); TOTAL PROTEIN 6.5 GM/DL (6.4-8.2)
[2019-12-08 21:46] LABS: FREE T4 0.94 NG/DL (0.76-1.46); THYROID STIMULATING HORMONE 2.2 uIU/ML (0.358-3.740)
[2019-12-09 12:43] LABS: CA15-3 ANTIGEN 654.4 U/ML (<32.4)
== END ==
LOC: M LAB 13:07
PROVIDERS: ATTEND Internal Medicine Hematology
DX: C50.919 Malignant neoplasm of unspecified site of unspecified female breast (principal); Z79.899 Other long term (current) drug therapy

== ENCOUNTER → 2020-01-03 | Outpatient (REF) | payer MEDICARE ==
[2020-01-03 12:44] LABS: CALCIUM LEVEL 8.9 MG/DL (8.8-10.2); CREATININE FOR GFR 1.43 MG/DL (0.55-1.30); GLOMERULAR FILTRATION RATE 38.1 (>39); POTASSIUM SERUM 4.2 MEQ/L (3.5-5.1)
[2020-01-03 13:33] LABS: HEMOGLOBIN A1c 8.8 %
== END ==
LOC: M LAB REF 11:11
PROVIDERS: ATTEND Family Medicine
DX: E11.9 Type 2 diabetes mellitus without complications (principal)

== ENCOUNTER → 2020-03-15 | Outpatient (REF) | payer MEDICARE ==
[~2020-03-15] MED LIST changes: +ACET650T61 PO; -TYLE650T35 PO
[2020-03-16 15:26] LABS: HEMOGLOBIN A1c 8.4 %
== END ==
LOC: M LABDRAWC 11:25
PROVIDERS: ATTEND Family Medicine
DX: E11.9 Type 2 diabetes mellitus without complications (principal)
CPT/HCPCS: 36415; 83036; G0463

== ENCOUNTER → 2020-06-26 | Outpatient (CLI) | payer MEDICARE ==
[~2020-06-26] MED LIST changes: +D-40TAB2 PO; +GASTROGRAFIN SOLUTION 30ML (Q9963) As Ordered ONE; +ISOVUE-370 76% 100ML VIAL As Ordered ONE
--- NOTE | 2020-06-26 18:08 | REP ---
INDICATION: BREAST CA. COMPARISON: 08/12/2018. TECHNIQUE: Abdomen and pelvis CT with IV and bowel contrast. FINDINGS: There is a small right pleural effusion as an interval change. The visualized lung colmenares are otherwise unremarkable. The hepatic parenchyma is homogeneous. There are no hepatic nodules or masses. There is a tiny volume of biliary gravel in the gallbladder fundus, unchanged. The pancreas and spleen are unremarkable and unchanged. The adrenals are unremarkable. The kidneys are unremarkable. Abdominal aorta is unremarkable. There is no periaortic adenopathy or mass. No mesenteric adenopathy. 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 The bowel and mesentery are otherwise unremarkable. There is a ventral hernia containing omental fat but no bowel, unchanged. Pelvis: There is no pelvic adenopathy or ascites. Uterus and adnexa are unremarkable. The pelvic bowel loops are unremarkable. There are no lytic, blastic or destructive skeletal changes. There is advanced degenerative disc disease throughout the lumbar spine there is advanced bilateral hip osteoarthritis. IMPRESSION: Small right pleural effusion as an interval change. No adenopathy, mass or ascites. Duodenal lipoma, unchanged. Fat containing ventral hernia, unchanged. Advanced multilevel lumbar degenerative disc disease. Advanced hip osteoarthritis bilaterally. <Electronically signed by Channing Traore > 06/26/20 [id number]
== END ==
LOC: M RAD 13:25
PROVIDERS: ATTEND Internal Medicine Hematology & Oncology
DX: J90 Pleural effusion, not elsewhere classified (principal); M51.36 Other intervertebral disc degeneration, lumbar region; M16.0 Bilateral primary osteoarthritis of hip; C50.919 Malignant neoplasm of unspecified site of unspecified female breast
CPT/HCPCS: 74177; Q9963; Q9967

== ENCOUNTER → 2020-08-08 | Outpatient (CLI) | payer MEDICARE ==
[~2020-08-08] MED LIST changes: -GASTROGRAFIN SOLUTION 30ML (Q9963) As Ordered ONE; -ISOVUE-370 76% 100ML VIAL As Ordered ONE
--- NOTE | 2020-08-08 17:00 | REP ---
INDICATION: M54.2 NECK PAIN. COMPARISON: None. TECHNIQUE: Three views of the shoulder were performed. FINDINGS: The acromioclavicular and glenohumeral relationships are within normal limits. There is AC joint an GH joint narrowing with marginal osteophytosis of the humeral head. Calcifications are seen inferior to the humeral head. There is no acute fracture. The bones are demineralized. IMPRESSION: Chronic changes as described above. Patient has a history of breast carcinoma. There are no priors for comparison shoulder MRI is recommended. <Electronically signed by Otto Lopez > 08/08/20 [id number]
--- NOTE | 2020-08-08 17:03 | REP ---
INDICATION: M54.2 NECK PAIN. COMPARISON: None. TECHNIQUE: Eight views FINDINGS: There is advanced disc space narrowing at C6-7 with heavy anterior and posterior osteophytic ridging. More moderate disc space narrowing is seen posteriorly at all other levels. Flexion and extension is limited radiographically. Vertebral body height and alignment is within normal limits. The facet joints appear to be well aligned bilaterally. Hypertrophic degenerative facet and uncovertebral joint changes are present at every level bilaterally.. The dens cannot be effectively evaluated secondary to the superimposition of osseous structures and/or dentition on all views. There is evidence of right-sided C4-5 foraminal narrowing. The bones are demineralized. IMPRESSION: Chronic changes as described above. If a fracture is of clinical concern then CT is recommended. <Electronically signed by Otto Lopez > 08/08/20 [id number]
== END ==
LOC: M CLY 15:01
PROVIDERS: ATTEND Family Medicine
DX: M50.323 Other cervical disc degeneration at C6-C7 level (principal); Z85.3 Personal history of malignant neoplasm of breast
CPT/HCPCS: 72050; 73030; G0463

== ENCOUNTER → 2020-08-24 | Outpatient (CLI) | payer MEDICARE ==
[~2020-08-24] MED LIST changes: +ISOVUE-370 76% 100ML VIAL As Ordered ONE; -LISI-542 PO; +LISI-898 PO; -LISI40TA PO; +LISI40TA4 PO
--- NOTE | 2020-08-24 17:57 | REP ---
INDICATION: BREAST CANCER. Rising tumor markers. COMPARISON: Comparison chest CT study 12 August 2018.. TECHNIQUE: Helical scanning is acquired following the intravenous injection of 75 mL of Isovue 370. 3 mm axial images re-formatted. Coronal and sagittal MPR and coronal MIP images are generated. FINDINGS: Digital preliminary crop adjuster radiograph shows surgical clips in the right axilla. On axial CT images, there is a small right pleural effusion which is a new finding. There are is mild but multifocal nodular pleural thickening along the right lateral and upper chest. The largest pleural nodule is in the right lung apex medially adjacent to the vertebral column. This measures 1.6 cm in AP dimension by 7 mm in thickness. The findings are consistent with pleural metastatic disease in the right chest. There is very subtle pleural nodularity on the left as well. There is fissural thickening on the right which is somewhat nodular also. No pulmonary mass lesion is seen. No pericardial effusion is seen. Mitral annular calcification is observed. Coronary artery calcification is noted. No axillary lymphadenopathy is seen. The visualized upper abdominal structures are unremarkable. No supraclavicular adenopathy is observed. Bone window settings9 show no bony destructive or sclerotic lesion. 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 There is a small right pleural effusion and there is nodular pleural thickening. <Electronically signed by Damien Braun > 08/24/20 [id number]
== END ==
LOC: M RAD 17:04
PROVIDERS: ATTEND Internal Medicine Hematology & Oncology
DX: R97.1 Elevated cancer antigen 125 [CA 125] (principal); J90 Pleural effusion, not elsewhere classified; I25.10 Atherosclerotic heart disease of native coronary artery without angina pectoris
CPT/HCPCS: 71260; Q9967

== ENCOUNTER 2020-10-02 12:10 | Inpatient (IN) | payer MEDICARE ==
[2020-10-02] VITALS (13 sets, daily range): BP systolic 142–202; BP diastolic 68–88
[~2020-10-02] VITALS: Ht 160 cm; Wt 85.2 kg
[~2020-10-02 12:10] MED LIST changes: -ISOVUE-370 76% 100ML VIAL As Ordered ONE
[2020-10-02] MEDS ORDERED: POLY150C5 PO (12:36)
[2020-10-02] MEDS ORDERED: AMMO12CR7 TOP (12:36)
[2020-10-02 13:11] LABS: BASO % 0.2 % (0.0-1.0); EOS % 0.2 % (0.0-3.0); HEMOGLOBIN 13.7 g/dl (12.0-15.5); LYMPH # 1.2 10^3/uL (1.5-5.0); LYMPH % 22.7 % (24.0-44.0); MEAN CORPUSCULAR HEMOGLOBIN 31.4 pg (27.0-33.0); MEAN CORPUSCULAR HGB CONC 32.6 g/dl (32.0-36.5); MEAN CORPUSCULAR VOLUME 96.3 fl (80.0-96.0); MONO # 0.4 10^3/uL (0.0-0.8); MONO % 7.4 % (2.0-8.0); NEUTROPHILS # 3.7 10^3/uL (1.5-8.5); NEUTROPHILS % 69.1 % (36.0-66.0); PLATELET COUNT, AUTOMATED 165 10^3/uL (150-450); RED BLOOD COUNT 4.36 10^6/uL (4.00-5.40); WHITE BLOOD COUNT 5.4 10^3/uL (4.0-10.0)
[2020-10-02 13:42] LABS: ALBUMIN 3.1 GM/DL (3.2-5.2); ALT/SGPT 14 U/L (12-78); BILIRUBIN,DIRECT < 0.1 MG/DL (0.0-0.2); BILIRUBIN,TOTAL 0.2 MG/DL (0.2-1.0); CK-MB VALUE MASS 1.2 NG/ML (<3.6); CPK CREATINE PHOSPHOKINASE 48 U/L (26-192); LIPASE 264 U/L (73-393); TOTAL PROTEIN 6.4 GM/DL (6.4-8.2); TROPONIN I < 0.02 NG/ML (< 0.10)
[2020-10-02] MEDS ORDERED: ISOVUE-370 76% 100ML VIAL As Ordered ONE (14:26)
--- NOTE | 2020-10-02 15:15 | REP ---
INDICATION: concern for incarcerated hernia COMPARISON: 06/26/2020. TECHNIQUE: CT Scan of the abdomen and pelvis was performed with intravenous administration of 100 cc of Isovue 370, without oral contrast. Sagittal and coronal reconstruction images are performed. FINDINGS: Lung bases: There is a large right pleural effusion. There is adjacent consolidation in the right lung base. Liver: Normal Gallbladder: Unremarkable. Spleen: Normal. Adrenals: Normal. Pancreas: Normal. Kidneys: Normal. Small and large bowel: Unremarkable. Free fluid: None. Abdominal aorta: No aneurysm or dissection. Adenopathy: None. Appendix: Not inflamed. Osseous structures: There are degenerative changes of the spine without compression deformity. There are degenerative changes of both hips.. Pelvis: No mass. There is a small umbilical hernia containing fat. There is diffuse edema and inflammation of the fat, as well as a tiny amount of fluid in the hernia sac. THE FINDINGS ARE SUGGESTIVE OF A STRANGULATED UMBILICAL HERNIA. IMPRESSION: There is a large right pleural effusion. There is adjacent consolidation in the right lung base. There is a small umbilical hernia containing fat. There is diffuse edema and inflammation of the fat, as well as a tiny amount of fluid in the hernia sac. THE FINDINGS ARE SUGGESTIVE OF A STRANGULATED UMBILICAL HERNIA. <Electronically signed by Channing Sanchez > 10/02/20 [id number]
[2020-10-02 15:19] LABS: NT-PRO BNP 2774 PG/ML (<450)
--- NOTE | 2020-10-02 15:19 | REP ---
INDICATION: fluid seen on CT Abd. COMPARISON: 08/24/2020. TECHNIQUE: CT chest performed without the use of intravenous contrast. Sagittal and coronal reconstruction images are performed. FINDINGS: Lungs: There is consolidation inferiorly in the right lung.. Mediastinum: No gross adenopathy. Liv: No gross adenopathy. Axilla: No gross adenopathy. Pleura: There is a large right pleural effusion which has increased since the prior study.. Heart: Not enlarged. Thoracic aorta: No aneurysm. Visualized osseous structures: There are degenerative changes of the spine without compression deformity. IMPRESSION: Large right pleural effusion has increased since the prior study. Consolidation inferior right lung. <Electronically signed by Channing Sanchez > 10/02/20 [id number]
[2020-10-02] MEDS ORDERED: ONDANSETRON 4MG/2ML VIAL IV PRN (17:00)
[2020-10-02] MEDS ORDERED: KETOROLAC 30 MG/ML 1ML VIAL IV SCH (17:00)
[2020-10-02] MEDS ORDERED: BISACODYL 10 MG SUPP PR PRN (17:00)
[2020-10-02] MEDS ORDERED: LEVALBUTEROL 1.25 MG/0.5 ML CONCENTRATE NEB NEB PRN (17:00)
[2020-10-02] MEDS ORDERED: ACETAMINOPHEN TAB 650MG DOSE (2X325MG) PO PRN (17:00)
[2020-10-02 17:20] LABS: RSV AMPLIFICATION NEGATIVE (NEGATIVE)
[2020-10-02 17:36] LABS: ABG BASE EXCESS 2.7 (-2.0-2.0); ABG HCO3 27.3 MEQ/L (22.0-26.0); ABG O2 SATURATION 96.5 % (95.0-99.0); ABG PARTIAL PRESSURE CO2 41.9 mmHg (35.0-45.0); ABG PARTIAL PRESSURE O2 68.3 mmHg (75.0-100.0); ABG STANDARD HCO3 26.9 MEQ/L (22.0-26.0); ABG TOTAL CO2 28.6 MEQ/L (23.0-31.0); ABG pH (ARTERIAL) 7.432 UNITS (7.350-7.450)
[2020-10-02] MEDS ORDERED: MIDAZOLAM INJ 2MG/2ML VIAL (J2250 PER 1MG) As Ordered ONE (17:41)
[2020-10-02] MEDS ORDERED: flumazeniL 0.5 MG/5 ML VIAL As Ordered ONE (17:41)
[2020-10-02] MEDS ORDERED: LIDOCAINE 1% MDV 20ML VIAL As Ordered ONE (17:42)
[2020-10-02] MEDS: KCL 20MEQ IN D5/NS 1000ML 1,000 ML IV SCH (17:52)
[2020-10-02] MEDS ORDERED: MIDAZOLAM INJ 2MG/2ML VIAL (J2250 PER 1MG) IV ONE ×2 (18:35)
[2020-10-02] MEDS ORDERED: LIDOCAINE 1% SDV 30ML VIAL SC SCH (18:35)
--- NOTE | 2020-10-02 18:48 | REP ---
INDICATION: when chest tube in. COMPARISON: November 10, 2013. TECHNIQUE: Portable upright AP chest radiograph. FINDINGS: Cardiomegaly is observed. Monitoring electrodes are seen. Left lung is clear. There is a right chest tube in place. There is no evidence of pneumothorax or hydrothorax. There are surgical clips in the right axillary soft tissues.. The large right pleural effusion seen on CT study from October 02, 2020 has been a vacuo aided. IMPRESSION: Right chest tube in place. Previously noted right pleural effusion is no longer visible. No evidence of pneumothorax. No infiltrate seen. Heart is enlarged.. <Electronically signed by Damien Braun > 10/02/20 [id number]
[2020-10-02 19:09] LABS: SOURCE, BODY FLUID PLEURAL
[2020-10-02 19:10] LABS: APPEARANCE, BODY FLUID HAZY (CLEAR); PLEURAL FL COLOR YELLOW (COLORLESS)
[2020-10-02 19:25] LABS: PH BODY FLUID 7.651 UNITS (NOT ESTABLISHED); SOURCE, BODY FLUID pH PLEURAL
[2020-10-02 19:30] LABS: LDH LACTATE DEHYDROGENASE 252 U/L (84-246)
[2020-10-02 19:33] LABS: AMYLASE, BODY FLUID 38 U/L (NOT ESTABLISHED); CHOLESTEROL, BODY FLUID 83 MG/DL (NOT ESTABLISHED); LDH, BODY FLUID 149 U/L (NOT ESTABLISHED); SOURCE, BODY FLUID AMYLASE PLEURAL; SOURCE, BODY FLUID CHOL PLEURAL; SOURCE, BODY FLUID GLUCOSE PLEURAL; SOURCE, BODY FLUID LDH PLEURAL; SOURCE, BODY FLUID TRIG PLEURAL; TRIGLYCERIDE, BODY FLUID 36 MG/DL (NOT ESTABLISHED)
[2020-10-02 19:36] LABS: SOURCE, BODY FLUID ALBUMIN PLEURAL; SOURCE, BODY FLUID TOT PROTEIN PLEURAL; TOTAL PROTEIN, BODY FLUID 3.7 G/DL (NOT ESTABLISHED)
[2020-10-02] MEDS ORDERED: VENL-37 PO (19:39)
[2020-10-02] MEDS ORDERED: D31000TA2 PO (19:39)
[2020-10-02] MEDS ORDERED: XARE20TA PO (19:39)
[2020-10-02] MEDS ORDERED: JARD1TAB3 PO (19:39)
[2020-10-02] MEDS ORDERED: ASPI-161 PO (19:39)
--- NOTE | 2020-10-02 20:07 | ECGEPIP ---
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
[2020-10-02] MEDS: DOCUSATE SODIUM 100MG CAPSULE PO SCH (20:22)
[2020-10-02] MEDS: LEVALBUTEROL 1.25 MG/0.5 ML CONCENTRATE NEB NEB SCH (20:34)
[2020-10-02] MEDS: PERCOCET 5MG/325MG TAB PO PRN (22:02)
[2020-10-02] MEDS ORDERED: DEXTROSE 50% 50 ML SYRINGE IV PRN (22:55)
[2020-10-02] MEDS ORDERED: GLUCAGON INJ 1MG VIAL SC PRN (22:55)
[2020-10-02] MEDS ORDERED: GLUCOSE 4GM CHEW TABLET PO PRN (22:55)
--- NOTE | 2020-10-02 22:59 | HPEPDOC ---
General Date of Admission 10/02/20 Date of Service: Oct 02, 2020 Chief Complaint The patient is a 75-year-old female admitted with a reason for visit of Abd Pain. Source: Patient, RN/MD History of Present Illness 75 year old female with h/o metastatic right breast cancer with possible mets to lungs and pleura, ckd stage 3, dm, htn, h/o DVT, HLD was at the tool and die repairer's office for routine follow up when she complained of pain at her umbilical hernia. She has had umbilical hernia for about 3 years and usually reduces spontaneously when she lays down and not painful. But the hernia became painful and red to purple in color from last night and became irreducible. She had 10/10 sharp constant aching pain at the hernia and would not go down on pressing it. She complained about this to the tool and die repairer and the Patient was sent to the ed for evaluation of obstructed/ incarcerated umbilical hernia. CT abdomen abd and pelvis showed a small umbilical hernia containing fat. There was diffuse edema and inflammation of the fat, as well as a tiny amount of fluid in the hernia sac. THE FINDINGS were SUGGESTIVE OF A STRANGULATED UMBILICAL HERNIA. Incidentally it also showed large right pleural effusion. There was adjacent consolidation in the right lung base. Ice was applied with decreased swelling of the hernia and it was able to be gently reduced. Was evaluated by Dr Srivastava and recommended outpatient repair of the hernia. A CT chest was done to evaluate the right pleural effusion which confirmed the efussion with adjacent right lower lobe collapse. Dr Agrawal was consulted and he advised that the Patient needed a chest tube. On further questioning patient does report limited activities due to exertional dyspnea going on for months. She can just walk to ther letter box and back and then gets extremely winded. Kaovn was admitted for right pleural effusion. Home Medications Scheduled Aspirin (Aspirin EC) 81 Mg Tablet.dr, 81 MG PO QHS, (Reported) Cholecalciferol (Vitamin D3) (Vitamin D3) 1,000 Unit Tablet, 1,000 UNITS PO QHS, (Reported) Empagliflozin (Jardiance) 25 Mg Tablet, 25 MG PO QHS, (Reported) Fulvestrant (Faslodex) 250 Mg/5 Ml Syringe, 500 MG IM QMONTH, (Reported) Insulin Glargine,Hum.rec.anlog (Basaglar Kwikpen U-100) 100 Unit/1 Ml Insuln.pen, 32 UNIT SC QHS, (Reported) Iron Ps Complex/B12/Folic Acid (Poly-Iron 150 Forte Capsule) 1 Each Capsule, 1 CAP PO QHS, (Reported) Liraglutide (Victoza 2-Juan Carlos) 0.6 Mg/0.1 Ml Pen.injctr, 1.2 MG SC QHS, (Reported) Rivaroxaban (Xarelto) 20 Mg Tablet, 20 MG PO QHS, (Reported) Simvastatin (Simvastatin) 20 Mg Tab, 20 MG PO QHS, (Reported) Venlafaxine HCl (Venlafaxine HCl) 75 Mg Tablet, 75 MG PO BID, (Reported) Scheduled PRN Acetaminophen (Tylenol Arthritis) 650 Mg Tablet.er, 650 MG PO Q8H PRN for PAIN, (Reported) Allergies Coded Allergies: adhesive tape (Verified Allergy, Intermediate, rash, 12/23/18) exenatide (Verified Allergy, Mild, itching, 12/23/18) Past Medical History Medical History Invasive ductal carcinoma of the right breast, 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 Right pleural effusion and there is nodular pleural thickening. CKD stage 3 DM H/O DVT HLD depression Dizziness HTN Asthma Surgical History Right breast lumpectomy tubal ligation bilateral cataract surgery Family History FATHER: , LIVER DISEASE MOTHER: , GI BLEED DAUGHTER HAS MS Social History * Smoker: Denies Alcohol: Denies Drugs: denies A-FIB/CHADSVASC A-FIB History Current/History of A-Fib/PAF?: No Review of Systems Constitutional: Denies: Chills, Fever, Night Sweats Eyes: Denies: Pain, Vision change ENT: Denies: Head Aches, Ear Pain, Dysphagia Skin: Denies: Rash, Lesions, Breakdown Pulmonary: Reports: Dyspnea Cardiovascular: Denies: Chest Pain, Palpitations, Orthopnea, Paroxysmal Noc. Dyspnea, Lt Headedness Gastrointestinal: Reports: Abdominal Pain; Denies: Nausea, Vomiting, Diarrhea Physical Examination General Exam: Positive: Alert, Cooperative, No Acute Distress Eye Exam: Positive: PERRLA, Conjunctiva & lids normal, EOMI; Negative: Sclera icteric ENT Exam: Positive: Atraumatic, Mucous membr. moist/pink, Pharynx Normal Neck Exam: Positive: Supple; Negative: JVD, thyromegaly Chest Exam: Positive: Normal air movement, Diminished (at the right base), Other (dull to percussion) Heart Exam: Positive: Rate Normal, Regular Rhythm, Normal S1, Normal S2; Negative: Murmurs, Rubs Abdomen Exam: Positive: Normal bowel sounds, Soft, Tenderness (in the umbilical region with mild erythema), Hernia (reducible umbilical hernia); Negative: Hepatospenomegaly Extremity Exam: Positive: Normal pulses; Negative: Clubbing, Cyanosis, Edema Vital Signs Vital Signs Date Time Temp Pulse Resp B/P (MAP) Pulse Ox O2 Delivery O2 Flow Rate FiO2 10/02/20 13:36 10/02/20 12:11 98.2 77 18 100 Room Air Laboratory Data Labs 24H Laboratory Tests 2 10/02/20 12:55: Immature Granulocyte % (Auto) 0.4, Neutrophils (%) (Auto) 69.1H, Lymphocytes (%) (Auto) 22.7L, Monocytes (%) (Auto) 7.4, Eosinophils (%) (Auto) 0.2, Basophils (%) (Auto) 0.2, Neutrophils # (Auto) 3.7, Lymphocytes # (Auto) 1.2L, Monocytes # (Auto) 0.4, Eosinophils # (Auto) 0.0, Basophils # (Auto) 0.0, Nucleated Red Blood Cells % (auto) 0.0, Lactic Acid Level 1.1, Total Bilirubin 0.2, Direct Bilirubin < 0.1, Aspartate Amino Transf (AST/SGOT) 8, Alanine Aminotransferase (ALT/SGPT) 14, Alkaline Phosphatase 84, Total Creatine Kinase 48, Creatine Kinase MB 1.2, Creatine Kinase MB Relative Index 2.50, Troponin I < 0.02, IJ-Kdl-L-Type Natriuretic Peptide 2774H, Total Protein 6.4, Albumin 3.1L, Albumin/Globulin Ratio 0.9L, Lipase 264 10/02/20 13:03: POC Glucose (Misc Panel) 239H, POC Sodium (Misc Panel) 138, POC Potassium (Misc Panel) 4.3, POC Chloride (Misc Panel) 99, POC Total CO2 (Misc Panel) 30.0H, POC Blood Urea Nitrogen (Misc Panel 33H, POC Ionized Calcium (Misc Panel) 4.8, POC Creatinine (Misc Panel) 1.2, POC Hematocrit (Misc Panel) 40.0 10/02/20 15:40: CBC/BMP Laboratory Tests 10/02/20 12:55 Assessment/Plan 75 year old female with h/o metastatic right breast cancer with possible mets to lungs and pleura, ckd stage 3, dm, htn, h/o DVT, HLD was at the tool and die repairer's office for routine follow up when she complained of pain at her umbilical hernia. She has had umbilical hernia for about 3 years and usually reduces spontaneously when she lays down and not painful. But the hernia became painful and red to purple in color from last night and became irreducible. She had 10/10 sharp constant aching pain at the hernia and would not go down on pressing it. She complained about this to the tool and die repairer and the Patient was sent to the ed for evaluation of obstructed/ incarcerated umbilical hernia. CT abdomen abd and pelvis showed a small umbilical hernia containing fat. There was diffuse edema and inflammation of the fat, as well as a tiny amount of fluid in the hernia sac. THE FINDINGS were SUGGESTIVE OF A STRANGULATED UMBILICAL HERNIA. Incidentally it also showed large right pleural effusion. There was adjacent consolidation in the right lung base. Ice was applied with decreased swelling of the hernia and it was able to be gently reduced. Was evaluated by Dr Srivastava and recommended outpatient repair of the hernia. A CT chest was done to evaluate the right pleural effusion which confirmed the effusion with adjacent right lower lobe collapse. Dr Agrawal was consulted and he advised that the Patient needed a chest tube. Patient was admitted for right pleural effusion. Right sided pleural effusion exudative mononuclear type likely malignant effusion from metastatic breast cancer. DM levemir and lispro FS ac and HS, Hypoglycemic protocol. Depression venlafaxine HLD statin H/o DVT on xarelto will hold. Plan / VTE VTE Prophylaxis Ordered?: Yes LAUREL FARIAS MD Oct 02, 2020 17:17
[2020-10-03] VITALS (19 sets, daily range): BP systolic 120–177; BP diastolic 59–82; O2SAT 93–99
[2020-10-03] MEDS: HumaLOG INSULIN (NovoLOG) PER UNIT SC SCH ×5 (00:15→22:00)
[2020-10-03] MEDS: LEVEMIR (INSULIN DETEMIR) 1 UNITS/0.01ML SC SCH ×2 (00:15→22:00)
[2020-10-03] MEDS: SIMVASTATIN 20 MG TAB PO SCH ×2 (00:17→22:07)
[2020-10-03] MEDS ORDERED: CALCIUM CARBONATE 500 MG CHEW U/D PO ONE (01:40)
[2020-10-03] MEDS: PERCOCET 5MG/325MG TAB PO PRN ×2 (01:45→14:42)
[2020-10-03] MEDS: LEVALBUTEROL 1.25 MG/0.5 ML CONCENTRATE NEB NEB SCH ×4 (02:03→20:59)
[2020-10-03 05:04] LABS: HEMATOCRIT 40.5 % (36.0-47.0); LYMPH # 0.7 10^3/uL (1.5-5.0); LYMPH % 10.4 % (24.0-44.0); MEAN CORPUSCULAR HEMOGLOBIN 31.2 pg (27.0-33.0); MEAN CORPUSCULAR HGB CONC 32.1 g/dl (32.0-36.5); MEAN CORPUSCULAR VOLUME 97.1 fl (80.0-96.0); MONO # 0.3 10^3/uL (0.0-0.8); MONO % 4.5 % (2.0-8.0); NEUTROPHILS # 5.5 10^3/uL (1.5-8.5); NEUTROPHILS % 84.6 % (36.0-66.0); PLATELET COUNT, AUTOMATED 154 10^3/uL (150-450); RED BLOOD COUNT 4.17 10^6/uL (4.00-5.40); WHITE BLOOD COUNT 6.4 10^3/uL (4.0-10.0)
[2020-10-03 05:22] LABS: CALCIUM LEVEL 7.9 MG/DL (8.8-10.2); CREATININE FOR GFR 1.15 MG/DL (0.55-1.30); GLOMERULAR FILTRATION RATE 48.8 (>39); POTASSIUM SERUM 4.1 MEQ/L (3.5-5.1)
[2020-10-03 06:05] LABS: ABG BASE EXCESS -1.9 (-2.0-2.0); ABG O2 SATURATION 97.7 % (95.0-99.0); ABG PARTIAL PRESSURE CO2 40.1 mmHg (35.0-45.0); ABG PARTIAL PRESSURE O2 86.6 mmHg (75.0-100.0); ABG STANDARD HCO3 22.9 MEQ/L (22.0-26.0); ABG TOTAL CO2 24.3 MEQ/L (23.0-31.0); ABG pH (ARTERIAL) 7.377 UNITS (7.350-7.450)
[2020-10-03] MEDS: KCL 20MEQ IN D5/NS 1000ML 1,000 ML IV SCH (07:23)
[2020-10-03] MEDS: NORCO, ANEXSIA 5/325MG TABLET (HYDROcodone/ACETAMINOPHEN) PO PRN ×2 (08:02→13:20)
--- NOTE | 2020-10-03 08:48 | REP ---
INDICATION: when chest tube in. COMPARISON: 10/02/2020 portable chest. TECHNIQUE: Upright PA and lateral chest. FINDINGS: The right thoracotomy tube is unchanged. There is effacement of the right costophrenic angle suggestive of a right pleural effusion. There is a focal atelectasis inferiorly in the right lung. Next I suspect there is a tiny right apical pneumothorax as an interval change. Left lung is clear. Cardiac size is normal. Surgical clips along the right lateral chest wall are unchanged. IMPRESSION: Right thoracotomy unchanged. Right pleural effusion. Atelectasis inferiorly in the right lung. Small right apical pneumothorax. <Electronically signed by Channing Traore > 10/03/20 [id number]
[2020-10-03] MEDS: MOM 30ML SUSPENSION UDC PO SCH (09:00)
[2020-10-03] MEDS: PANTOPRAZOLE 40MG TAB (PROTONIX) PO SCH (09:23)
[2020-10-03] MEDS: DOCUSATE SODIUM 100MG CAPSULE PO SCH ×2 (09:24→22:07)
--- NOTE | 2020-10-03 09:37 | IPNPDOC ---
Subjective Date Seen The patient was seen on 10/03/20. Subjective Chief Complaint/HPI complains of pain below the right breast and at the back at the site of the chest tube. Says having lots of pain during ambulation. Objective Physical Examination General Exam: Positive: Alert, Cooperative, No Acute Distress Eye Exam: Positive: PERRLA, Conjunctiva & lids normal, EOMI; Negative: Sclera icteric ENT Exam: Positive: Atraumatic, Mucous membr. moist/pink, Pharynx Normal Neck Exam: Positive: Supple; Negative: JVD, thyromegaly Chest Exam: Positive: Normal air movement, Diminished (slightly diminished at the right base but much improved from before. ), Other (right base crackles. ) Heart Exam: Positive: Rate Normal, Regular Rhythm, Normal S1, Normal S2; Negative: Murmurs, Rubs Abdomen Exam: Positive: Normal bowel sounds, Soft, Tenderness (in the umbilical region with mild erythema), Hernia (reducible umbilical hernia); Negative: Hepatospenomegaly Extremity Exam: Positive: Normal pulses; Negative: Clubbing, Cyanosis, Edema Assessment /Plan Assessment 75 year old female with h/o metastatic right breast cancer with possible mets to lungs and pleura, ckd stage 3, dm, htn, h/o DVT, HLD was at the shipping inspector's office for routine follow up when she complained of pain at her umbilical hernia. She has had umbilical hernia for about 3 years and usually reduces spontaneously when she lays down and not painful. But the hernia became painful and red to purple in color from last night and became irreducible. She had 10/10 sharp constant aching pain at the hernia and would not go down on pressing it. She complained about this to the shipping inspector and the Patient was sent to the ed for evaluation of obstructed/ incarcerated umbilical hernia. CT abdomen abd and pelvis showed a small umbilical hernia containing fat. There was diffuse edema and inflammation of the fat, as well as a tiny amount of fluid in the hernia sac. THE FINDINGS were SUGGESTIVE OF A STRANGULATED UMBILICAL HERNIA. Incidentally it also showed large right pleural effusion. There was adjacent consolidation in the right lung base. Ice was applied with decreased swelling of the hernia and it was able to be gently reduced. Was evaluated by Dr Srivastava and recommended outpatient repair of the hernia. A CT chest was done to evaluate the right pleural effusion which confirmed the effusion with adjacent r ight lower lobe collapse. Dr Agrawal was consulted and he advised that the Patient needed a chest tube. Patient was admitted for right pleural effusion. Right sided pleural effusion 16;00 hundred removed after chest tube placement. exudative mononuclear type likely malignant effusion from metastatic breast cancer. culture and cytology pending. DM levemir and lispro FS ac and HS, Hypoglycemic protocol. Depression venlafaxine HLD statin H/o DVT on xarelto will hold. Plan/VTE VTE Prophylaxis Ordered?: Yes VS, I&O, 24H, Fishbone Vital Signs/I&O Vital Signs Date Time Temp Pulse Resp B/P (MAP) Pulse Ox O2 Delivery O2 Flow Rate FiO2 10/03/20 08:02 20 Nasal Cannula 10/03/20 08:00 170/80 (110) 10/03/20 08:00 2.0 10/03/20 07:55 98.0 81 100 I&O- Last 24 Hours up to 6 AM 10/03/20 06:00 Intake Total 1740 ml Output Total 2301 ml Balance -561 ml Laboratory Data 24H LABS Laboratory Tests 2 10/02/20 12:55: Immature Granulocyte % (Auto) 0.4, Neutrophils (%) (Auto) 69.1H, Lymphocytes (%) (Auto) 22.7L, Monocytes (%) (Auto) 7.4, Eosinophils (%) (Auto) 0.2, Basophils (%) (Auto) 0.2, Neutrophils # (Auto) 3.7, Lymphocytes # (Auto) 1.2L, Monocytes # (Auto) 0.4, Eosinophils # (Auto) 0.0, Basophils # (Auto) 0.0, Nucleated Red Blood Cells % (auto) 0.0, Lactic Acid Level 1.1, Total Bilirubin 0.2, Direct Bilirubin < 0.1, Aspartate Amino Transf (AST/SGOT) 8, Alanine Aminotransferase (ALT/SGPT) 14, Alkaline Phosphatase 84, Lactate Dehydrogenase 252H, Total Creatine Kinase 48, Creatine Kinase MB 1.2, Creatine Kinase MB Relative Index 2.50, Troponin I < 0.02, RM-Cnk-E-Type Natriuretic Peptide 2774H, Total Protein 6.4, Albumin 3.1L, Albumin/Globulin Ratio 0.9L, Lipase 264 10/02/20 13:03: POC Glucose (Misc Panel) 239H, POC Sodium (Misc Panel) 138, POC Potassium (Misc Panel) 4.3, POC Chloride (Misc Panel) 99, POC Total CO2 (Misc Panel) 30.0H, POC Blood Urea Nitrogen (Misc Panel 33H, POC Ionized Calcium (Misc Panel) 4.8, POC Creatinine (Misc Panel) 1.2, POC Hematocrit (Misc Panel) 40.0 10/02/20 15:40: Coronavirus (COVID-19)(PCR) NEGATIVE, Influenza Type A (RT-PCR) NEGATIVE, Influenza Type B (RT-PCR) NEGATIVE, Respiratory Syncytial Virus (PCR) NEGATIVE 10/02/20 17:23: Blood Gas Bicarbonate Standard 26.9H, Arterial Blood pH 7.432, Arterial Blood Partial Pressure CO2 41.9, Arterial Blood Partial Pressure O2 68.3L, Arterial Blood Total CO2 28.6, Arterial Blood HCO3 27.3H, Arterial Blood Base Excess 2.7H, Arterial Blood Oxygen Saturation 96.5 10/02/20 18:55: Body Fluid pH 7.651, Body Fluid pH Source PLEURAL, Body Fluid WBC (Auto) 886H, Body Fluid RBC (Auto) 14, Body Fluid Mononuclear Cells % Auto 91.7H, Fluid Polymorphonuclear Cell % Auto 8.3H, Body Fluid Glucose Source PLEURAL, Body Fluid Glucose 201, Body Fluid Protein Source PLEURAL, Body Fluid Total Protein 3.7, Body Fluid Albumin Source PLEURAL, Body Fluid Albumin 2.1, Body Fluid LDH Source PLEURAL, Body Fluid Lactate Dehydrogenase 149, Body Fluid Amylase Source PLEURAL, Body Fluid Amylase 38, Body Fluid Cholesterol 83, Body Fluid Cholesterol Source PLEURAL, Body Fluid Triglyceride Source PLEURAL, Body Fluid Triglycerides 36, Pleural Fluid Source PLEURAL, Pleural Fluid Color YELLOW, Pleural Fluid Appearance HAZY 10/03/20 00:00: Bedside Glucose (Misc Panel) 254H 10/03/20 04:26: Immature Granulocyte % (Auto) 0.5, Neutrophils (%) (Auto) 84.6H, Lymphocytes (%) (Auto) 10.4L, Monocytes (%) (Auto) 4.5, Eosinophils (%) (Auto) 0.0, Basophils (%) (Auto) 0.0, Neutrophils # (Auto) 5.5, Lymphocytes # (Auto) 0.7L, Monocytes # (Auto) 0.3, Eosinophils # (Auto) 0.0, Basophils # (Auto) 0.0, Nucleated Red Blood Cells % (auto) 0.0, Anion Gap 6L, Glomerular Filtration Rate 48.8, Calcium Level 7.9L 10/03/20 06:00: Blood Gas Bicarbonate Standard 22.9, Arterial Blood pH 7.377, Arterial Blood Partial Pressure CO2 40.1, Arterial Blood Partial Pressure O2 86.6, Arterial Blood Total CO2 24.3, Arterial Blood HCO3 23.0, Arterial Blood Base Excess -1.9, Arterial Blood Oxygen Saturation 97.7 CBC/BMP Laboratory Tests 10/02/20 12:55 10/03/20 04:26 Microbiology Microbiology 10/02/20 Acid Fast Stain, Received Pending 10/02/20 Mycobacterial Culture, Received Pending 10/02/20 Fungal Smear, Received Pending 10/02/20 Fungal Culture, Received Pending 10/02/20 Gram Stain - Final, Resulted 10/02/20 Anaerobic Culture, Resulted Pending 10/02/20 Body Fluid Culture, Received Pending LAUREL FARIAS MD Oct 03, 2020 09:37
[2020-10-03] MEDS ORDERED: FUROSEMIDE 40MG/4ML VIAL (J1940) IV ONE (10:50)
--- NOTE | 2020-10-03 12:11 | RO ---
OPERATIVE NOTE DATE OF OPERATION: 10/02/2020 Myles Chow DO dictating in conjunction with Hamlet Agrawal MD. My attending, Dr. Agrawal, was at bedside. PROCEDURE PRESIDENT FINANCIAL INSTITUTION: Myles Chow DO ATTENDING PHYSICIAN IN ATTENDANCE: Yes, Hamlet Agrawal MD. CONSENT: Consent was obtained from [place] prior to the procedure. Indications, risks and benefits were explained at length. INDICATION: Right-sided pleural effusion DESCRIPTION OF PROCEDURE: Timeout was performed and after chest x-ray and CT review, the appropriate side was confirmed and marked. Initially, 2 mg of Versed was given for procedural sedation. My hands were washed immediately prior to the procedure. I wore a mask, protective eyewear, sterile gown and sterile gloves throughout the procedure. The patient was prepped and draped in a sterile manner using chlorhexidine scrub after the patient was positioned in the usual fashion. A total of 10 mL of 1% lidocaine was used to anesthetize the skin, subcutaneous tissue and superior aspect of the rib, periosteum and parietal pleura. A 1 cm incision was then made parallel to the rib and mid axillary line at the level of the 5th rib. Subcutaneous tissue superficial and superior to the rib was dissected bluntly at the level of the pleura. The pleura was then entered bluntly. Serosanguinous fluid was noted to come out from the pleural space. The disruption in the parietal pleura was expanded bluntly and a finger was then inserted and swept carefully in all directions. A 24-Sinhala chest tube was then inserted using my finger as a guide. The chest tube was directed posteromedially and inserted easily. The chest tube was sutured to the skin at the insertion site and connected securely with tape to a Pleur-Evac. A sterile occlusive dressing was placed over the insertion site. No immediate complications were noted. A post-procedure chest x-ray was ordered and showed correct placement of the tip of the chest tube with significant reduction of the pleural effusion. Estimated blood is less than 5 mL. Total initial amount of fluid drained off was about 1600 mL of red-tinged serosanguinous fluid. The patient tolerated the procedure well. Please attach a E attestation and be sure to have Dr. Hamlet Agrawal be my cosigner. Attending note: "large Edilma clamp" should be substituted for "finger" MTDD
--- NOTE | 2020-10-03 12:11 | CR ---
CONSULTATION DATE: 10/02/2020 HISTORY OF PRESENT ILLNESS: The patient is seen and examined in the Emergency Department. She presented to the Emergency Department on 10/02/2020 at the urging of her assistant corporation counsel, Dr. Akash Nunez after she began having abdominal pain from an umbilical hernia and there was concern for a possible incarceration outside of this for said hernia. In the Emergency Department when the patient was having her abdomen evaluated, a CT of the abdomen and pelvis was ordered that showed a possible strangulated hernia as well as a large right sided pleural effusion. General Surgery was consulted and felt that it was able to be reduced and could be surgically fixed on an outpatient basis and did not require any surgical intervention at this time. At this point, the Thoracic Surgery Service was consulted and Dr. Agrawal was contacted regarding the large right pleural effusion and he requested the patient be admitted for tube thoracostomy. The patient is not especially a strong historian. She does admit that she has some difficulties with shortness of breath on exertion but is able to get around her home adequately. She has not endorsed any chest pain, shortness of breath at rest, difficulty breathing while lying flat, fever or chills. Has a mildly productive cough of yellow sputum but is unclear on the time line of any positive symptoms that she has had. PAST MEDICAL HISTORY: History of right sided breast cancer diagnosed in 2002, status post lumpectomy, present history of metastatic breast cancer diagnosed in 2012. Type 2 diabetes, hypertension, hyperlipidemia, history of lower extremity DVT, unknown whether provoked/unprovoked. PAST SURGICAL HISTORY: Tubal ligation, right breast lumpectomy, D and C with Dr. Roman in 2013, colonoscopy/endoscopy in 2016, bilateral breast biopsy, negative for cancer in November 2018, cataract surgery in 2018. FAMILY HISTORY: Father from liver disease, mother from GI bleed, brother with [place]'s macroglobulinemia, a sister with metastatic cancer, unknown origin. SOCIAL HISTORY: The patient is a never smoker. No history of illicit drug use. Denies any alcohol use. History of foreign travel in the 80s to [place]. History of travel to [place] and [place] a number of years ago. 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 No birds, cats or dogs. REVIEW OF SYSTEMS: General: Denies fever, chills, night sweats, hemoptysis, recent unexpected weight change. HEENT: Denies any headaches, vision changes, difficulty seeing, or yellowing of the eyes. Denies any hearing changes, ear drainage or ear pain. Admits to occasional nosebleeds. Denies any rhinorrhea or nasal congestion. Denies any mouth pain or difficulty swallowing. Admits to some neck pain that she was being worked up for as an outpatient. Chest: Denies any chest pain or palpitations, or difficulty breathing. Admits to dyspnea on exertion. Respiratory: Admits to occasional productive cough of yellow sputum. Denies any wheezing or hemoptysis. GI: Denies any nausea, vomiting, abdominal pain, change in bowel movements, blood in the stool or black tarry stool. : Denies any dysuria or hematuria, difficulty urinating, or painful urination. Musculoskeletal: Denies any muscle aches or pains, denies any joint pain. Psychiatric: Denies any FLAQUITO, AVH. Neurologic: Denies any numbness, tingling. PHYSICAL EXAMINATION: VITAL SIGNS: Temperature is 98.2, blood pressure 184/90, pulse 73 and regular, satting 97% on room air with a respiratory rate of 18. GENERAL: Ms. Santiago is a pleasant appearing female who appears her stated age laying back comfortably in bed in no acute distress speaking in complete sentences. HEENT: Head is normocephalic, atraumatic. EOMI. Pupils are equal, round and reactive to light. No scleral icterus. Nares are patent and without signs of bleed or nasal congestion. Mucous membranes are moist. Mouth does have some cavities but teeth are well-preserved. No pharyngeal erythema or uvular deviation. NECK: Tender to palpation, left greater than right. No cervical, submandibular or posterior lymphadenopathy. No supraclavicular lymphadenopathy. No axillary lymphadenopathy. CARDIOVASCULAR: Regular rate and rhythm. Normal S1 and S2. No murmurs, gallops, or rubs. PMI is nondisplaced. RESPIRATORY: No adventitious breath sounds. Lungs are clear to auscultation bilaterally. There is dullness to percussion throughout the right lung, more so toward the right lower lobe compared to the left lung. There are no wheezes, crackles or rhonchi. ABDOMEN: Soft, obese, minimally tender to palpation overlying the umbilicus where there is a very small umbilical hernia that is raised. No organomegaly. Bowel sounds are present throughout the abdomen. EXTREMITIES: No lower extremity edema. SKIN: No rashes or skin lesions. PSYCHIATRIC: Patient is alert and oriented x3 with appropriate mood and affect. NEUROLOGIC: Cranial nerves II-XII are intact. Muscle strength is +5/5 in bilateral upper and lower extremities although gait was not tested. Sensation is intact throughout. LABORATORY DATA: White blood cell count of 5.4, hemoglobin 13.7, hematocrit 42, platelet count of 165,000. ABG showed a pH of 7.43, pCO2 of 41.9, pO2 of 16.3. Point of care BMP showing a sodium of 138, potassium 4.3, chloride 99, bicarbonate 30, BUN 33, creatinine 1.2. Ionized calcium 4.8. Lactic acid 1.1. Total bilirubin 0.2. Direct bilateral less than 0.1. AST 8, ALT 14, alkaline phosphatase 84, LDH 252. CK 48. Troponin less than 0.02. Pro-BNP 2774. Total protein 6.4. Albumin 3.1. Lipase 264. IMAGING: Chest CT showing a right pleural effusion with compressions in right lung and some mild ground-glass opacities at the bottom of the left lung. There are also some blebs on the anterior portion going into the lung. I am not sure what these represent. No mediastinal lymphadenopathy is seen. There are possible surgical clips on the right side of the breast. The radiologist is reading it is a large right pleural effusion, increased since prior study with consolidation of the inferior right lung. ASSESSMENT AND PLAN: The patient is a 75-year-old female with a past medical history of metastatic ductal carcinoma of the breast that was previously in remission in 2019 who presents with incidental finding of large right pleural effusion. 1. Large right pleural effusion. Plan for tube thoracostomy this evening. Will collect fluid samples including cultures and evaluate from there. However, given her history of breast cancer, it is likely this represents a malignant effusion and especially some of her CT findings are consistent with the same. I do not believe she has an infiltrative process. Her symptoms are not consistent with an empyema nor is her history. The medicine team has already been consulted for her other medical problems and we will defer to them for the remainder of those. Currently, she is on oral medications for pain control in the event that she requires further IV pain control since she cannot get Toradol, Morphine may be an option to consider. Thank you for involving us in the care of this patient. Please do not hesitate to calls us with any questions or concerns. GME attestation Attending note: Large right pleural effusion, decrease breath sound right, dull percussion note right lower hemithorax. No evidence of CHF. May be malignant. Normal renal function. Will place chest tube. MTDD
[2020-10-03] MEDS: VENLAFAXINE 37.5 MG TAB PO SCH (22:11)
[2020-10-04] VITALS (18 sets, daily range): BP systolic 119–158; BP diastolic 57–71; O2SAT 95–97
[2020-10-04] MEDS: LEVALBUTEROL 1.25 MG/0.5 ML CONCENTRATE NEB NEB SCH ×4 (02:13→20:14)
[2020-10-04] MEDS: NORCO, ANEXSIA 5/325MG TABLET (HYDROcodone/ACETAMINOPHEN) PO PRN ×3 (03:59→21:06)
[2020-10-04 05:18] LABS: BASO % 0.2 % (0.0-1.0); EOS % 0.2 % (0.0-3.0); HEMATOCRIT 39.8 % (36.0-47.0); HEMOGLOBIN 12.6 g/dl (12.0-15.5); LYMPH # 1.4 10^3/uL (1.5-5.0); LYMPH % 28.7 % (24.0-44.0); MEAN CORPUSCULAR HEMOGLOBIN 31.2 pg (27.0-33.0); MEAN CORPUSCULAR HGB CONC 31.7 g/dl (32.0-36.5); MEAN CORPUSCULAR VOLUME 98.5 fl (80.0-96.0); MONO # 0.5 10^3/uL (0.0-0.8); MONO % 9.3 % (2.0-8.0); NEUTROPHILS % 61.2 % (36.0-66.0); PLATELET COUNT, AUTOMATED 153 10^3/uL (150-450); RED BLOOD COUNT 4.04 10^6/uL (4.00-5.40); WHITE BLOOD COUNT 4.9 10^3/uL (4.0-10.0)
[2020-10-04 05:42] LABS: CREATININE FOR GFR 1.29 MG/DL (0.55-1.30); GLOMERULAR FILTRATION RATE 42.8 (>39); POTASSIUM SERUM 3.8 MEQ/L (3.5-5.1)
[2020-10-04] MEDS: VENLAFAXINE 37.5 MG TAB PO SCH ×2 (08:24→21:06)
[2020-10-04] MEDS: HumaLOG INSULIN (NovoLOG) PER UNIT SC SCH ×4 (08:24→21:01)
[2020-10-04] MEDS: MOM 30ML SUSPENSION UDC PO SCH (08:24)
[2020-10-04] MEDS: PANTOPRAZOLE 40MG TAB (PROTONIX) PO SCH (08:25)
[2020-10-04] MEDS: DOCUSATE SODIUM 100MG CAPSULE PO SCH ×2 (08:25→21:00)
--- NOTE | 2020-10-04 08:41 | REP ---
INDICATION: when chest tube in. COMPARISON: Comparison chest x-ray October 03, 2010. TECHNIQUE: Two views.. FINDINGS: A right chest tube remains in place. There is a tiny right apical pneumothorax again seen unchanged. There is blunting of the right lateral pleural angle unchanged. No new infiltrate is seen. Monitoring electrodes are noted. There are surgical clips in the right axillary soft tissues. IMPRESSION: Right chest tube remains in place. Tiny right apical pneumothorax unchanged. Otherwise no acute findings.. <Electronically signed by Damien Braun > 10/04/20 0867
--- NOTE | 2020-10-04 10:34 | IPNPDOC ---
Subjective Date Seen The patient was seen on 10/04/20. Subjective Chief Complaint/HPI Feels better this morning. . is able to walk more easil;y to the bathroom and back though was not able to walk back from xray. Objective Physical Examination General Exam: Positive: Alert, Cooperative, No Acute Distress Eye Exam: Positive: PERRLA, Conjunctiva & lids normal, EOMI; Negative: Sclera icteric ENT Exam: Positive: Atraumatic, Mucous membr. moist/pink, Pharynx Normal Neck Exam: Positive: Supple; Negative: JVD, thyromegaly Chest Exam: Positive: Normal air movement, Diminished (slightly diminished at the right base but much improved from before. ), Other (right base crackles. ) Heart Exam: Positive: Rate Normal, Regular Rhythm, Normal S1, Normal S2; Negative: Murmurs, Rubs Abdomen Exam: Positive: Normal bowel sounds, Soft, Tenderness (in the umbilical region with mild erythema), Hernia (reducible umbilical hernia); Negative: Hepatospenomegaly Extremity Exam: Positive: Normal pulses; Negative: Clubbing, Cyanosis, Edema Assessment /Plan Assessment 75 year old female with h/o metastatic right breast cancer with possible mets to lungs and pleura, ckd stage 3, dm, htn, h/o DVT, HLD was at the transfer station attendant's office for routine follow up when she complained of pain at her umbilical hernia. She has had umbilical hernia for about 3 years and usually reduces spontaneously when she lays down and not painful. But the hernia became painful and red to purple in color from last night and became irreducible. She had 10/10 sharp constant aching pain at the hernia and would not go down on pressing it. She complained about this to the transfer station attendant and the Patient was sent to the ed for evaluation of obstructed/ incarcerated umbilical hernia. CT abdomen abd and pelvis showed a small umbilical hernia containing fat. There was diffuse edema and inflammation of the fat, as well as a tiny amount of fluid in the hernia sac. THE FINDINGS were SUGGESTIVE OF A STRANGULATED UMBILICAL HERNIA. Incidentally it also showed large right pleural effusion. There was adjacent consolidation in the right lung base. Ice was applied with decreased swelling of the hernia and it was able to be gently reduced. Was evaluated by Dr Srivastava and recommended outpatient repair of the hernia. A CT chest was done to evaluate the right pleural effusion which confirmed the effusion with adjacent right lower lobe collapse. Dr Agrawal was consulted and he advised that the Patient needed a chest tube. Patient was admitted for right pleural effusion. Right sided pleural effusion 1600 cc removed after chest tube placement. exudative mononuclear type likely malignant effusion from metastatic breast cancer. culture aerobic and anaerobic culture is negative. Cytology pending. DM levemir and lispro FS ac and HS, Hypoglycemic protocol. Depression venlafaxine HLD statin H/o DVT on xarelto will hold. Obstructed Umbilical hernia reduced now freely reducible. follow up with surgery as outpatient. Plan/VTE VTE Prophylaxis Ordered?: Yes VS, I&O, 24H, Fishbone Vital Signs/I&O Vital Signs Date Time Temp Pulse Resp B/P (MAP) Pulse Ox O2 Delivery O2 Flow Rate FiO2 10/04/20 08:54 18 Room Air 10/04/20 07:11 97.8 74 158/69 (98) 93 2.0 I&O- Last 24 Hours up to 6 AM 10/04/20 06:00 Intake Total 2500 ml Output Total 1710 ml Balance 790 ml Laboratory Data 24H LABS Laboratory Tests 2 10/03/20 11:30: Bedside Glucose (Misc Panel) 149H 10/03/20 18:03: Bedside Glucose (Misc Panel) 269H 10/03/20 20:06: Bedside Glucose (Misc Panel) 216H 10/04/20 04:50: Anion Gap 6L, Glomerular Filtration Rate 42.8, Calcium Level 8.0L 10/04/20 05:12: Immature Granulocyte % (Auto) 0.4, Neutrophils (%) (Auto) 61.2, Lymphocytes (%) (Auto) 28.7, Monocytes (%) (Auto) 9.3H, Eosinophils (%) (Auto) 0.2, Basophils (%) (Auto) 0.2, Neutrophils # (Auto) 3.0, Lymphocytes # (Auto) 1.4L, Monocytes # (Auto) 0.5, Eosinophils # (Auto) 0.0, Basophils # (Auto) 0.0, Nucleated Red Blood Cells % (auto) 0.0 CBC/BMP Laboratory Tests 10/04/20 04:50 10/04/20 05:12 Microbiology Microbiology 10/02/20 Acid Fast Stain, Received Pending 10/02/20 Mycobacterial Culture, Received Pending 10/02/20 Fungal Smear, Received Pending 10/02/20 Fungal Culture, Received Pending 10/02/20 Gram Stain - Final, Complete 10/02/20 Anaerobic Culture - Final, Complete 10/02/20 Body Fluid Culture - Final, Complete LAUREL FARIAS MD Oct 04, 2020 10:34
--- NOTE | 2020-10-04 12:53 | IPN ---
PROGRESS NOTE DATE: 10/04/2020 SUBJECTIVE: The patient is seen and examined this morning at bedside. Patient and nursing reports no acute events overnight. She is sitting comfortably upright in her chair and has no complaints at this time. She denies any fevers, chills, chest pain, shortness of breath, difficulty breathing, cough, abdominal pain, nausea, vomiting, constipation, diarrhea, or swelling in her extremities. OBJECTIVE: VITAL SIGNS: Afebrile overnight, temperature 97, pulse 74 and regular, respiratory rate 18, blood pressure 119/57, saturating 95% on room air. INTAKE AND OUTPUT: 3400 mL of intake yesterday with 1650 mL of output, 225 mL of chest tube drainage with no air leak. GENERAL: The patient is a well-appearing female sitting upright in her chair at bedside, in no acute distress, and speaking in complete sentences. HEENT: Head is normocephalic, atraumatic. EOMI. Sclerae nonicteric. Mucous membranes are moist. NECK: Trachea is midline. No JVD. CARDIOVASCULAR: Regular rate and rhythm. Normal S1 and S2. No murmurs, gallops, or rubs. RESPIRATORY: No adventitious breath sounds. Her lungs are clear to auscultation bilaterally. She has no wheezes, crackles, or rhonchi. She has no dullness to percussion. ABDOMEN: Obese, soft, nontender, and nondistended. Bowel sounds present. EXTREMITIES: Lower extremity edema significantly improved from day prior. NEUROLOGIC: Cranial nerves 2 through 12 intact. Gait is stable. Sensation is intact. PSYCHIATRIC: Alert and oriented x3 with appropriate mood and affect. LABORATORY DATA: White blood cell count 4.9, hemoglobin 12.6, hematocrit 39.8, platelet count 153,000. Sodium 140, potassium 3.8, chloride 106, bicarb 28, BUN 26, creatinine 1.29, glucose 283. Her cytology, which is pending at this time; we called up to the pathology lab and they reported that her cells are positive for what they called either breast or lung adenocarcinoma, but likely breast adenocarcinoma. IMAGING DATA: Chest x-ray: Trachea is midline. Heart borders are normal. Left lung expands out to the chest wall with no signs of acute infiltrate. The right hemidiaphragm does show some blunting of the costophrenic angle on the right side. Chest tube continues to be in appropriate position. There are no signs of pneumothorax. No signs of acute infiltrate. Maybe slightly improved in terms of the right costophrenic angle from day prior. Lateral is showing no signs of infiltrate in the posterior lobes as well. ASSESSMENT AND PLAN: The patient is a 75-year-old female who presented with an incidentally found right-sided pleural effusion that has been found to be secondary to an exudative process that likely represents resurgence of her breast cancer. 1. Right-sided pleural effusion status post tube thoracostomy on 10/02, found to likely be secondary to breast adenocarcinoma. We updated the patient as to the results of this lab work. Informed her we would likely be reaching out, once the final report was done, to the oncology center so that they can evaluate her on an inpatient basis. She does have an appointment on 10/10; however, if she needs to be in here longer or if her fluid continues to reaccumulate, she may need a PleurX catheter and may miss that appointment. Currently we will set her chest tube to water seal as there is no air leak and if she continues to do well, we will consider removing it tomorrow or the day after, depending on the amount of drainage. All of the patient's questions were answered and she had no additional questions at this time. Dictated by Myles Chow DO in conjunction with attending [place] Agrawal M.D. Attending note: agree. MARK
--- NOTE | 2020-10-04 16:05 | IPN ---
THORACIC SURGERY PROGRESS NOTE DATE: 10/03/2020 SUBJECTIVE: No acute events overnight. Patient is status post right-sided tube thoracostomy for large right plural effusion and appears to be doing well. She does have some discomfort on her right side, particularly when she moves around. However, she feels like her breathing is improved. She denies any current chest pain. No abdominal pain, nausea, vomiting, change in bowel habits. She is passing flatus. She is tolerating regular diet well. OBJECTIVE: VITAL SIGNS: Temperature 98, maximum temperature (T-max) 98.4 overnight, pulse 81, respiratory rate 18, blood pressure 177/79, saturating 100% on 2 liters nasal cannula. INTAKE AND OUTPUT: She had 840 mL of intake in the last 24 hours with 2031 mL of output, 1600 of which was from the initial chest tube drainage. Since that initial event, she has had 230 mL of output through the chest tube and 201 mL of urine output. GENERAL: Patient is a well-nourished appearing female who appears stated age, sitting upright in the chair at beside in no acute distress, speaking in complete sentences. HEENT: Head is normocephalic, atraumatic. Extraocular movements intact. Sclerae nonicteric. Mucous membranes moist. Trachea is midline. CARDIOVASCULAR: Regular rate and rhythm. Normal S1, S2. No murmurs, gallops or rubs. RESPIRATORY: No adventitious lung sounds bilaterally. Her lungs are actually quite clear. No air leak with cough. No wheezes, crackles or rhonchi. ABDOMEN: Obese, soft, nontender. Nondistended. Positive bowel sounds. EXTREMITIES: With trace in her right and 1+ lower extremity edema in her left to the level of her knee. NEUROLOGIC: Cranial nerves II-XII are intact. Gait is stable. Sensation is intact throughout. PSYCHIATRIC: Patient is awake, alert, oriented times three with appropriate mood and affect. LABORATORY DATA: CBC: WBC 6.4, hemoglobin 13, hematocrit 40.5, platelet count 154. Arterial blood gas (ABG): pH 7.377, pCO2 40.1, pO2 86.6. BMP: Sodium 141, potassium 4.1, chloride 108, bicarbonate 27, BUN 24, creatinine 1.15, glucose 259, calcium 7.9. Serum LDH from 10/02/2020 of 252. Her pleural fluid count shows a pH 7.65, white blood cell count of 86, red blood cells 14, mononuclear predominance of 91.7%, PMNs of 8.3%, plural fluid glucose of 201, fluid total protein 3.7, fluid albumin 2.1, total fluid LDH 149, fluid amylase 38, fluid cholesterol 83, triglycerides 36, yellow and hazy in color and appearance. The initial gram stain is showing a few white blood cells, no organisms seen. The body fluid culture results are pending, as are the acid-fast and mycobacterial/fungal culture results. Pathology is also pending, as is the cytology. IMAGING: Chest x-ray continues to be improved from yesterday. She has a slight right-sided pleural effusion with sharp left-sided costophrenic angles and no signs of infiltrates on chest x-ray. Her chest tube continues to be in an adequate position. ASSESSMENT/PLAN: Patient is a 75-year-old female with history of metastatic breast cancer who presented yesterday with an incidentally found large right pleural effusion. Large right pleural effusion status post tube thoracostomy. Drainage continues to be adequate. She has no air leak. We will continue her on -20 suction. It appears that her fluid results are consistent with a transudative effusion and given her renal deficiency, I suspect this is the likely result. We will put in for 40 mg of intravenous (IV) Lasix to help take some fluid off. Outside of that, we will continue with the tube thoracostomy. Further medical management per the primary team. She is tolerating a diet well and can continue on that. She should still not be receiving Toradol at night due to her history of renal insufficiency. She is okay to continue Percocet or [place] as previously prescribed. Attending note: agree. -- POLINA FLORES
[2020-10-04] MEDS: SIMVASTATIN 20 MG TAB PO SCH (21:00)
[2020-10-04] MEDS: LEVEMIR (INSULIN DETEMIR) 1 UNITS/0.01ML SC SCH (21:01)
[2020-10-05] VITALS: BP 159/80
[2020-10-05] MEDS: LEVALBUTEROL 1.25 MG/0.5 ML CONCENTRATE NEB NEB SCH ×4 (01:45→20:01)
[2020-10-05 04:00] VITALS: BP 146/65
[2020-10-05 05:28] LABS: BASO % 0.2 % (0.0-1.0); EOS % 0.2 % (0.0-3.0); HEMATOCRIT 36.8 % (36.0-47.0); HEMOGLOBIN 11.9 g/dl (12.0-15.5); LYMPH # 1.2 10^3/uL (1.5-5.0); LYMPH % 17.6 % (24.0-44.0); MEAN CORPUSCULAR HEMOGLOBIN 31.6 pg (27.0-33.0); MEAN CORPUSCULAR HGB CONC 32.3 g/dl (32.0-36.5); MEAN CORPUSCULAR VOLUME 97.9 fl (80.0-96.0); MONO # 0.7 10^3/uL (0.0-0.8); MONO % 9.9 % (2.0-8.0); NEUTROPHILS # 4.7 10^3/uL (1.5-8.5); NEUTROPHILS % 71.8 % (36.0-66.0); PLATELET COUNT, AUTOMATED 160 10^3/uL (150-450); RED BLOOD COUNT 3.76 10^6/uL (4.00-5.40); WHITE BLOOD COUNT 6.6 10^3/uL (4.0-10.0)
[2020-10-05 05:47] LABS: CALCIUM LEVEL 8.3 MG/DL (8.8-10.2); CREATININE FOR GFR 1.34 MG/DL (0.55-1.30); GLOMERULAR FILTRATION RATE 40.9 (>39); POTASSIUM SERUM 4.3 MEQ/L (3.5-5.1)
[2020-10-05] MEDS: HumaLOG INSULIN (NovoLOG) PER UNIT SC SCH ×4 (07:30→21:22)
[2020-10-05 08:00] VITALS: BP 150/70
--- NOTE | 2020-10-05 08:09 | REP ---
INDICATION: when chest tube in. COMPARISON: Comparison chest x-ray October 04, 2020. TECHNIQUE: Two views.. FINDINGS: The lungs are well inflated and free of infiltrate. The pleural angles are sharp. The heart size is normal. Pulmonary vasculature is not increased. No significant bony abnormality is seen. IMPRESSION: Right chest tube remains in place. Platelike atelectasis right base.. <Electronically signed by Damien Braun > 10/05/20 0897
[2020-10-05] MEDS ORDERED: LEVEMIR (INSULIN DETEMIR) 1 UNITS/0.01ML SC SCH (09:00)
[2020-10-05] MEDS: DOCUSATE SODIUM 100MG CAPSULE PO SCH ×2 (09:52→21:22)
[2020-10-05] MEDS: PANTOPRAZOLE 40MG TAB (PROTONIX) PO SCH (09:53)
[2020-10-05] MEDS: MOM 30ML SUSPENSION UDC PO SCH (09:53)
[2020-10-05] MEDS: VENLAFAXINE 37.5 MG TAB PO SCH ×2 (09:53→21:22)
[2020-10-05 12:00] VITALS: BP 148/64
[2020-10-05 16:00] VITALS: BP 154/68
--- NOTE | 2020-10-05 17:24 | CR.PDOC ---
General Date of Consultation: Oct 05, 2020 Consultation REASON FOR CONSULTATION/CHIEF COMPLAINT: [The patient is a 74-year-old woman well known to the oncology clinic has been under treatment for an ER/WV positive invasive ductal carcinoma of the right breast. The patient has been treated with palbociclib (IBRANCE) and Faslodex. her disease was under reasonable control when last seen in the clinic , however there was a small amount of ri ght-sided pleural effusion. Unfortunately insurance issues have prevented her from receiving her palbociclib which is a CDK 4/ 2 inhibitor given in conjunction with hormonal therapy in this case Faslodex. The patient was admitted to the hospital on 10/02/2020 with abdominal pain felt to be due to a possible strangulated hernia but at the time of my examination on 10/05/2020 she appears to be sitting comfortably in bed having a meal. A major problem that has been noted on this admission for which we have been consulted at this time is the development of a large malignant pleural effusion which has been drained and for which considerations of further catheter drainage has been contemplated. The pleural fluid cytology is positive for tumor and there is GAT3 positive ER positive but negative for TTF-1 thus consistent with a diagnosis of breast cancer. She was sitting in a chair in able to give a historical account for herself. ]. HISTORY OF PRESENT ILLNESS: [In 2002 she was found to have stage I IDC of the right breast ER positive HER-2 negative, she is received chemotherapy with bubba mycin/cytoxan followed by radiation therapy to the right breast then began receiving adjuvant hormonal therapy using anastrozole for 5 years that ended in 2007. In 2012 she developed metastasis from breast cancer and from March 2013 she remained on tamoxifen for 4 years until July 2017 , she remained well. Imaging studies were carried out with elevation of the tumor markers noted in 2018 she then began to develop symptoms of generalized fatigue when seen in the clinic on September 12 2020 ,she had also been having some neutropenia. As indicated she had been having a small right-sided pleural effusion and this had been noted at even the abdominal imaging in June 2020]. The problem of disease progression on hormonal treatment indicates that given the extent of the fluid it is clear that from the systemic point of view chemotherapy would be a better choice if tolerated. She lives alone and has had falls in the past 6 months making treatment itself with chemotherapy a difficult risk/reward ratio . And this intervention needs to be carefully examined. However this effusion is likely to recur and should it do so I would favor pleurodesis right at the outset. ALLERGIES: Please see below. HOME MEDICATIONS: Please see below. PAST MEDICAL HISTORY: There is a history of deep venous thrombosis C daily diabetes arthritis hyperlipidemia and hypertension]. PAST SURGICAL HISTORY: * Tubal ligation FAMILY HISTORY: Brother has Waldenstrm's macroglobulinemia father from liver disease mother had GI bleed one sister had metastatic cancer of uncertain origin Children: She has one child who is a reefer truck driver and she is mostly away from town because of her job] SOCIAL HISTORY: She states that she is from her is no history of alcohol or smoking Children: [one daughter] Employment: [Not employed anymore] Tobacco use:[No] ETOH: [No] Illicit drug use: [No] IV drug use: [No] Other relevant social factors: [Lives alone] REVIEW OF SYSTEMS: Review of systems at the moment she denies any systemic symptoms of fever chills night sweats hemoptysis HEENT is essentially unremarkable chest review at the moment is negative although has sputum producti on at times denies any angina seem to be comfortable in the abdomen at the time of my examination no skin changes no neurological psychiatry or other issues identified PHYSICAL EXAMINATION: Cooperative pleasant woman sitting in a bed having dinner, HEENT unremarkable chest generally clear reduced sounds right side, abdomen appeared to be soft and the umbilical hernia mentioned earlier there did not appear to be excessively prominent heart regular rate and rhythm no edema skin healthy and physiologic. Neurologically no gross focal findings. IMPRESSION: * Metastatic ER pos Her 2 negative R IDC breast carcinoma with a large pleural effusion currently drained * Must consider pleurodesis on recurrence * Likely the treatment program will need adjustment * When disease of this nature needs a rapid control it requires chemotherapy which is something that may be needed although the functionality and the falls she has is reason to worry * If she remains in the hospital we will follow otherwise see in the clinic and manage as I understand she was telling me that she may be discharged soon. * Thank you for consulting Vital Signs/I&O Vital Signs Date Time Temp Pulse Resp B/P (MAP) Pulse Ox O2 Delivery O2 Flow Rate FiO2 10/05/20 16:00 98.6 97 16 154/68 (96) 94 Room Air 10/04/20 07:11 2.0 I&O- Last 24 Hours up to 6 AM 10/05/20 05:59 Intake Total 1280 ml Output Total 1170 ml Balance 110 ml Laboratory Data Labs 24H Laboratory Tests 2 10/04/20 16:53: Bedside Glucose (Misc Panel) 344H 10/04/20 20:47: Bedside Glucose (Misc Panel) 319H 10/05/20 04:56: Immature Granulocyte % (Auto) 0.3, Neutrophils (%) (Auto) 71.8H, Lymphocytes (%) (Auto) 17.6L, Monocytes (%) (Auto) 9.9H, Eosinophils (%) (Auto) 0.2, Basophils (%) (Auto) 0.2, Neutrophils # (Auto) 4.7, Lymphocytes # (Auto) 1.2L, Monocytes # (Auto) 0.7, Eosinophils # (Auto) 0.0, Basophils # (Auto) 0.0, Nucleated Red Blood Cells % (auto) 0.0, Anion Gap 6L, Glomerular Filtration Rate 40.9, Calcium Level 8.3L 10/05/20 11:35: Bedside Glucose (Misc Panel) 309H CBC/BMP Laboratory Tests 10/05/20 04:56 Microbiology Microbiology 10/02/20 Acid Fast Stain, Received Pending 10/02/20 Mycobacterial Culture, Received Pending 10/02/20 Fungal Smear, Received Pending 10/02/20 Fungal Culture, Received Pending 10/02/20 Gram Stain - Final, Complete 10/02/20 Anaerobic Culture - Final, Complete 10/02/20 Body Fluid Culture - Final, Complete Allergies Coded Allergies: adhesive tape (Verified Allergy, Intermediate, rash, 12/23/18) exenatide (Verified Allergy, Mild, itching, 12/23/18) Home Medications Scheduled Aspirin (Aspirin EC) 81 Mg Tablet.dr, 81 MG PO QHS, (Reported) Cholecalciferol (Vitamin D3) (Vitamin D3) 1,000 Unit Tablet, 1,000 UNITS PO QHS, (Reported) Empagliflozin (Jardiance) 25 Mg Tablet, 25 MG PO QHS, (Reported) Fulvestrant (Faslodex) 250 Mg/5 Ml Syringe, 500 MG IM QMONTH, (Reported) Insulin Glargine,Hum.rec.anlog (Basaglar Kwikpen U-100) 100 Unit/1 Ml Insuln.pen, 32 UNIT SC QHS, (Reported) Iron Ps Complex/B12/Folic Acid (Poly-Iron 150 Forte Capsule) 1 Each Capsule, 1 CAP PO QHS, (Reported) Liraglutide (Victoza 2-Juan Carlos) 0.6 Mg/0.1 Ml Pen.injctr, 1.2 MG SC QHS, (Reported) Rivaroxaban (Xarelto) 20 Mg Tablet, 20 MG PO QHS, (Reported) Simvastatin (Simvastatin) 20 Mg Tab, 20 MG PO QHS, (Reported) Venlafaxine HCl (Venlafaxine HCl) 75 Mg Tablet, 75 MG PO BID, (Reported) Scheduled PRN Acetaminophen (Tylenol Arthritis) 650 Mg Tablet.er, 650 MG PO Q8H PRN for PAIN, (Reported) MADHAV TREVIZO MDFRCP Oct 05, 2020 17:24
[2020-10-05 20:00] VITALS: BP 155/66
[2020-10-05] MEDS: SIMVASTATIN 20 MG TAB PO SCH (21:22)
[2020-10-05] MEDS: LEVEMIR (INSULIN DETEMIR) 1 UNITS/0.01ML SC SCH (21:22)
[2020-10-05] MEDS: PERCOCET 5MG/325MG TAB PO PRN (23:59)
[2020-10-06] VITALS: BP 140/64
[2020-10-06] MEDS: LEVALBUTEROL 1.25 MG/0.5 ML CONCENTRATE NEB NEB SCH ×4 (01:29→19:54)
[2020-10-06 04:00] VITALS: BP 136/61
[2020-10-06 05:25] LABS: BASO % 0.1 % (0.0-1.0); EOS % 0.2 % (0.0-3.0); HEMATOCRIT 37.8 % (36.0-47.0); HEMOGLOBIN 12.4 g/dl (12.0-15.5); LYMPH # 1.1 10^3/uL (1.5-5.0); LYMPH % 13.8 % (24.0-44.0); MEAN CORPUSCULAR HEMOGLOBIN 31.3 pg (27.0-33.0); MEAN CORPUSCULAR HGB CONC 32.8 g/dl (32.0-36.5); MEAN CORPUSCULAR VOLUME 95.5 fl (80.0-96.0); MONO # 0.7 10^3/uL (0.0-0.8); MONO % 8.8 % (2.0-8.0); NEUTROPHILS # 6.3 10^3/uL (1.5-8.5); NEUTROPHILS % 76.7 % (36.0-66.0); PLATELET COUNT, AUTOMATED 171 10^3/uL (150-450); RED BLOOD COUNT 3.96 10^6/uL (4.00-5.40); WHITE BLOOD COUNT 8.3 10^3/uL (4.0-10.0)
[2020-10-06 05:48] LABS: CALCIUM LEVEL 8.1 MG/DL (8.8-10.2); CREATININE FOR GFR 1.34 MG/DL (0.55-1.30); GLOMERULAR FILTRATION RATE 40.9 (>39); POTASSIUM SERUM 4.1 MEQ/L (3.5-5.1)
[2020-10-06] MEDS: HumaLOG INSULIN (NovoLOG) PER UNIT SC SCH ×4 (07:30→20:57)
[2020-10-06 08:00] VITALS: BP 140/70
--- NOTE | 2020-10-06 08:49 | REP ---
INDICATION: when chest tube in. COMPARISON: Comparison chest x-ray October 05, 2020. TECHNIQUE: Two views.. FINDINGS: The right chest tube is been removed in the interval since yesterday's radiograph. There is slight blunting of the right lateral and posterior pleural angles and discoid atelectasis is seen in the right base. There are surgical clips in the right axillary soft tissues. There is no evidence of pneumothorax. Left lung remains clear. Heart is not felt to be enlarged. Monitoring electrodes are seen. IMPRESSION: Right chest tube removed. Right based atelectatic change.. <Electronically signed by Damien Braun > 10/06/20 [id number]
[2020-10-06] MEDS: PANTOPRAZOLE 40MG TAB (PROTONIX) PO SCH (08:54)
[2020-10-06] MEDS: MOM 30ML SUSPENSION UDC PO SCH (08:54)
[2020-10-06] MEDS: VENLAFAXINE 37.5 MG TAB PO SCH ×2 (08:54→20:58)
[2020-10-06] MEDS: DOCUSATE SODIUM 100MG CAPSULE PO SCH ×2 (08:54→20:58)
[2020-10-06] MEDS ORDERED: LEVEMIR (INSULIN DETEMIR) 1 UNITS/0.01ML SC SCH (09:00)
--- NOTE | 2020-10-06 11:25 | IPN ---
THORACIC SURGERY PROGRESS NOTE DATE: 10/05/2020 SUBJECTIVE: No acute events overnight. The patient states she is doing quite well. She denies any chest pain, fever, chills, shortness of breath, abdominal pain, nausea or vomiting, or change in bowel habits. She continues to have an appetite and she continues to tolerate a regular diet well. OBJECTIVE: VITAL SIGNS: Temperature is 98.0, afebrile overnight, pulse 80, respiratory rate 18, blood pressure 150/70, satting 99% on room air. INPUT AND OUTPUT: 960 of intake, 770 of output with 700 for urine and 70 ccs of chest tube drainage with no air leak. GENERAL: The patient is a well-appearing female who appears her stated age sitting upright in bed in no acute distress. HEENT: Head is normocephalic, atraumatic. EOMI. Sclera is nonicteric. Mucous membranes are moist. Trachea is midline. CARDIOVASCULAR: Regular rate and rhythm. Normal S1 and S2. No murmurs, rubs or gallops. RESPIRATORY: No adventitious lung sounds bilaterally. Her lungs are clear to auscultation. No wheezes, crackles or rhonchi. ABDOMEN: Obese, soft, nontender and nondistended. Positive bowel sounds. EXTREMITIES: Trace pitting edema in the right lower extremity, not in the left lower extremity. NEUROLOGIC: Cranial nerves II-XII are intact. Gait is stable. Sensation is intact throughout. PSYCHIATRIC: Patient is awake, alert, and oriented x3 with appropriate mood and affect. LABORATORY DATA: White blood cell count 6.6, hemoglobin 11.9, hematocrit 36.8, platelet count of 160,000. BMP showing sodium of 137, potassium 4.3, chloride 105, bicarbonate 26, BUN 34, creatinine 1.34, glucose 277, calcium 8.3. Pleural fluid culture is negative for anaerobic or anything growing on gram stain. Pathology cell block is finalized showing malignant cells positive for GAD3, ER and negative for TTF1, the immunoprofile supports the above diagnosis of metastatic breast carcinoma. The cytology is showing positive for malignancy, highly cellular specimen consisting of abundant groups of cell exhibiting high N/C ratios, irregular nucleoli, __ nucleoli with crowding, background consists of mesothelial cells, macrophages, lymphocytes and white blood cells. IMAGING: Chest x-ray showed some mild blunting of the right costophrenic angle but otherwise is free of infiltrate or worsening effusions. Heart borders are normal. PleurX extend out to the chest wall bilaterally. ASSESSMENT AND PLAN: The patient is a 75-year-old female with a history of metastatic breast cancer who presented with an incidentally found large right sided pleural effusion on admission. 1. Large right pleural effusion status post tube thoracostomy. Her drainage is now down to 70 ml in the last 24 hours. She continues to have no air leak. We will pull her chest tube out today. We have also reached out to her oncologist, Dr. Sterling, who will evaluate her as an inpatient today for further plans and also plans to see her 10/10 on an outpatient basis to see if there is anything they can get started on the inpatient service treatment tabares for her metastatic breast cancer. The patient was informed of her diagnosis yesterday after we spoke with the pathologist and she is aware that we have reached out to Dr. Sterling. We will continue to follow along with her and she may be stable for discharge either tomorrow or Thursday possibly. GME ATTESTATION
[2020-10-06 12:00] VITALS: BP 125/61
--- NOTE | 2020-10-06 14:50 | IPNPDOC ---
Subjective Date Seen The patient was seen on 10/05/20. Subjective Chief Complaint/HPI Chest tube removed today. Patient much more comfortable after removing the chest tube. She is mobilizing freely. Objective Physical Examination General Exam: Positive: Alert, Cooperative, No Acute Distress Eye Exam: Positive: PERRLA, Conjunctiva & lids normal, EOMI; Negative: Sclera icteric ENT Exam: Positive: Atraumatic, Mucous membr. moist/pink, Pharynx Normal Neck Exam: Positive: Supple; Negative: JVD, thyromegaly Chest Exam: Positive: Normal air movement, Diminished (slightly diminished at the right base but much improved from before. ), Other (right base crackles. ) Heart Exam: Positive: Rate Normal, Regular Rhythm, Normal S1, Normal S2; Negative: Murmurs, Rubs Abdomen Exam: Positive: Normal bowel sounds, Soft, Tenderness (in the umbilical region with mild erythema), Hernia (reducible umbilical hernia); Negative: Hepatospenomegaly Extremity Exam: Positive: Normal pulses; Negative: Clubbing, Cyanosis, Edema Assessment /Plan Assessment 75 year old female with h/o metastatic right breast cancer with possible mets to lungs and pleura, ckd stage 3, dm, htn, h/o DVT, HLD was at the steel rigger's office for routine follow up when she complained of pain at her umbilical hernia. She has had umbilical hernia for about 3 years and usually reduces spontaneously when she lays down and not painful. But the hernia became painful and red to purple in color from last night and became irreducible. She had 10/10 sharp constant aching pain at the hernia and would not go down on pressing it. She complained about this to the steel rigger and the Patient was sent to the ed for evaluation of obstructed/ incarcerated umbilical hernia. CT abdomen abd and pelvis showed a small umbilical hernia containing fat. There was diffuse edema and inflammation of the fat, as well as a tiny amount of fluid in the hernia sac. THE FINDINGS were SUGGESTIVE OF A STRANGULATED UMBILICAL HERNIA. Incidentally it also showed large right pleural effusion. There was adjacent consolidation in the right lung base. Ice was applied with decreased swelling of the hernia and it was able to be gently reduced. Was evaluated by Dr Srivastava and recommended outpatient repair of the hernia. A CT chest was done to evaluate the right pleural effusion which confirmed the effusion with adjacent right lower lobe collapse. Dr Agrawal was consulted and he advised that the Patient needed a chest tube. Patient was admitted for right pleural effusion. Right sided Malignant pleural effusion 1600 cc removed after chest tube placement. malignant effusion from metastatic breast cancer. culture aerobic and anaerobic culture is negative. this will likely be recurrent Seen by oncology. Has an appointment on 10/10/20 DM levemir and lispro FS ac and HS, Hypoglycemic protocol. Depression venlafaxine HLD statin H/o DVT on xarelto will hold as may need more procedures while in hospital. will be resumed on discharge. Obstructed Umbilical hernia reduced now freely reducible. follow up with surgery as outpatient. Plan/VTE VTE Prophylaxis Ordered?: Yes VS, I&O, 24H, Fishbone Vital Signs/I&O Vital Signs Date Time Temp Pulse Resp B/P (MAP) Pulse Ox O2 Delivery O2 Flow Rate FiO2 10/06/20 12:00 97.8 86 16 125/61 (82) 93 Room Air 10/04/20 07:11 2.0 I&O- Last 24 Hours up to 6 AM 10/06/20 05:59 Intake Total 1440 ml Output Total 1306 ml Balance 134 ml Laboratory Data 24H LABS Laboratory Tests 2 10/05/20 18:15: Bedside Glucose (Misc Panel) 288H 10/05/20 21:12: Bedside Glucose (Misc Panel) 317H 10/06/20 04:48: Immature Granulocyte % (Auto) 0.4, Neutrophils (%) (Auto) 76.7H, Lymphocytes (%) (Auto) 13.8L, Monocytes (%) (Auto) 8.8H, Eosinophils (%) (Auto) 0.2, Basophils (%) (Auto) 0.1, Neutrophils # (Auto) 6.3, Lymphocytes # (Auto) 1.1L, Monocytes # (Auto) 0.7, Eosinophils # (Auto) 0.0, Basophils # (Auto) 0.0, Nucleated Red Blood Cells % (auto) 0.0, Anion Gap 7L, Glomerular Filtration Rate 40.9, Calcium Level 8.1L 10/06/20 08:42: Bedside Glucose (Misc Panel) 308H 10/06/20 12:01: Bedside Glucose (Misc Panel) 293H CBC/BMP Laboratory Tests 10/06/20 04:48 Microbiology Microbiology 10/02/20 Acid Fast Stain, Received Pending 10/02/20 Mycobacterial Culture, Received Pending 10/02/20 Fungal Smear, Received Pending 10/02/20 Fungal Culture, Received Pending 10/02/20 Gram Stain - Final, Complete 10/02/20 Anaerobic Culture - Final, Complete 10/02/20 Body Fluid Culture - Final, Complete LAUREL FARIAS MD Oct 06, 2020 14:50
--- NOTE | 2020-10-06 14:56 | IPNPDOC ---
Subjective Date Seen The patient was seen on 10/06/20. Subjective Chief Complaint/HPI Patient comfortable sitting by the side of bed. She has been ambulating well, Sugars are not well controlled at this time. Will change diet and insulin orders. Objective Physical Examination General Exam: Positive: Alert, Cooperative, No Acute Distress Eye Exam: Positive: PERRLA, Conjunctiva & lids normal, EOMI; Negative: Sclera icteric ENT Exam: Positive: Atraumatic, Mucous membr. moist/pink, Pharynx Normal Neck Exam: Positive: Supple; Negative: JVD, thyromegaly Chest Exam: Positive: Normal air movement, Other (right base crackles. 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 She has had umbilical hernia for about 3 years and usually reduces spontaneously when she lays down and not painful. But the hernia became painful and red to purple in color from last night and became irreducible. She had 10/10 sharp constant aching pain at the hernia and would not go down on pressing it. She complained about this to the chef de froid and the Patient was sent to the ed for evaluation of obstructed/ incarcerated umbilical hernia. CT abdomen abd and pelvis showed a small umbilical hernia containing fat. There was diffuse edema and inflammation of the fat, as well as a tiny amount of fluid in the hernia sac. THE FINDINGS were SUGGESTIVE OF A STRANGULATED UMBILICAL HERNIA. Incidentally it also showed large right pleural effusion. There was adjacent consolidation in the right lung base. Ice was applied with decreased swelling of the hernia and it was able to be gently reduced. Was evaluated by Dr Srivastava and recommended outpatient repair of the hernia. A CT chest was done to evaluate the right pleural effusion which confirmed the effusion with adjacent right lower lobe collapse. Dr Agrawal was consulted and he advised that the Patient needed a chest tube. Patient was admitted for right pleural effusion. Right sided Malignant pleural effusion from metastatic breast cancer 1600 cc removed after chest tube placement. Chest tube removed on 10/05, CXR on 10/06/20 again shows reaccumulation of the effusion. Dr Agrawal plans to insert a pleurx cath on 10/08/20 after the fluid accumulates some more. Seen by oncology. Has an appointment on 10/10/20 DM levemir and lispro FS ac and HS, Hypoglycemic protocol. Depression venlafaxine HLD statin H/o DVT on xarelto will hold as may need more procedures while in hospital. will be resumed on discharge. Obstructed Umbilical hernia reduced now freely reducible. follow up with surgery as outpatient. Plan/VTE VTE Prophylaxis Ordered?: Yes VS, I&O, 24H, Fishbone Vital Signs/I&O Vital Signs Date Time Temp Pulse Resp B/P (MAP) Pulse Ox O2 Delivery O2 Flow Rate FiO2 10/06/20 12:00 97.8 86 16 125/61 (82) 93 Room Air 10/04/20 07:11 2.0 I&O- Last 24 Hours up to 6 AM 10/06/20 05:59 Intake Total 1440 ml Output Total 1306 ml Balance 134 ml Laboratory Data 24H LABS Laboratory Tests 2 10/05/20 18:15: Bedside Glucose (Misc Panel) 288H 10/05/20 21:12: Bedside Glucose (Misc Panel) 317H 10/06/20 04:48: Immature Granulocyte % (Auto) 0.4, Neutrophils (%) (Auto) 76.7H, Lymphocytes (%) (Auto) 13.8L, Monocytes (%) (Auto) 8.8H, Eosinophils (%) (Auto) 0.2, Basophils (%) (Auto) 0.1, Neutrophils # (Auto) 6.3, Lymphocytes # (Auto) 1.1L, Monocytes # (Auto) 0.7, Eosinophils # (Auto) 0.0, Basophils # (Auto) 0.0, Nucleated Red B lood Cells % (auto) 0.0, Anion Gap 7L, Glomerular Filtration Rate 40.9, Calcium Level 8.1L 10/06/20 08:42: Bedside Glucose (Misc Panel) 308H 10/06/20 12:01: Bedside Glucose (Misc Panel) 293H CBC/BMP Laboratory Tests 10/06/20 04:48 Microbiology Microbiology 10/02/20 Acid Fast Stain, Received Pending 10/02/20 Mycobacterial Culture, Received Pending 10/02/20 Fungal Smear, Received Pending 10/02/20 Fungal Culture, Received Pending 10/02/20 Gram Stain - Final, Complete 10/02/20 Anaerobic Culture - Final, Complete 10/02/20 Body Fluid Culture - Final, Complete LAUREL FARIAS MD Oct 06, 2020 14:55
[2020-10-06 16:00] VITALS: BP 143/65
--- NOTE | 2020-10-06 16:07 | IPN ---
THORACIC SURGERYPROGRESS NOTE DATE: 10/06/2020 SUBJECTIVE: No acute events overnight. Patient is seen and examined at bedside. She currently has no complaints at this time and is tolerating her diet well. She denies any fever, chills, chest pain, shortness of breath, abdominal pain, nausea, vomiting, constipation, diarrhea. She continues to have bowel movements and is urinating adequately. OBJECTIVE: VITAL SIGNS: Afebrile overnight. Temperature 97.8, pulse 80 and regular, respiratory rate 16, blood pressure 140/70, saturating 94% on room air. INTAKE AND OUTPUT: 1460 mL intake with 2006 mL output; 6 mL chest tube drainage done prior to the chest tube being pulled yesterday. PHYSICAL EXAMINATION: GENERAL: Patient is a well-nourished appearing female who appears stated age, sitting upright in her chair at bedside, speaking in complete sentences, in no acute distress. HEENT: Head is normocephalic, atraumatic. Extraocular movements intact. No scleral icterus. Moist mucous membranes. Trachea is midline. No Jugular venous distention (JVD) or lymphadenopathy. CARDIOVASCULAR: Regular rate and rhythm. Normal S1, S2. No murmurs, gallops or rubs. RESPIRATORY: No adventitious lung sounds bilaterally. She had fine crackles appreciated in the right lower lobe with some dullness to percussion in the right lower lobe compared to the left lower lobe. No wheezes or rhonchi. ABDOMEN: Obese, soft. Nontender, nondistended. Positive bowel sounds. EXTREMITIES: Trace pitting edema below the level of the mid-abreu bilaterally. NEUROLOGIC: Cranial nerves II-XII grossly intact. Gait is stable. Sensation intact throughout. PSYCHIATRIC: She is awake, alert and oriented times three with appropriate mood and affect. LABORATORY DATA: White blood cell count 8.3, hemoglobin 12.4, hematocrit 37.9, platelet count 171. Sodium 135, potassium 4.1, chloride 104, bicarbonate 24, BUN 38, creatinine 1.34, glucose 306. IMAGING: On 2-view chest x-ray, there is ongoing blunting of the costophrenic angle with fluid reaccumulation that appears to be maybe slightly larger on the AP view. Left costophrenic angle is sharp. Heart borders are normal. Pleura extend out to the chest wall. No signs of acute infiltrate on the lateral view. It appears that there is fluid accumulation in the fissure on top of the right lower lobe. No signs of a spine sign, but obvious increased fluid in the right lower lobe. ASSESSMENT AND PLAN: Patient is a 75-year-old female with history of metastatic breast cancer who presented with an incidentally found right pleural effusion which was ultimately found to be a malignant effusion representing resurgence of her breast cancer. She is one day out from having her chest tube removed and is already showing some signs of fluid accumulation. We spoke with her at length of her possibly putting in a PleurX catheter, which would allow her to continuously drain fluid and then after three months, reassessing it to see if she would still require it. She did speak with Dr. Sterling yesterday, who similarly expressed the need for a possible PleurX catheter and said that he would continue to follow along with her in the hospital, but that ultimately, she could follow up outpatient and would likely need to change up her chemotherapy regimen. Presently, to make sure that she does not accumulate a large amount of fluid in a short amount of time, we will keep her for the next couple of days to track her fluid accumulation and order a CT scan, likely on Thursday or Thursday, at which time, if the target area is large enough, can see about putting in a PleurX catheter. Patient verbalized understanding and agreement with the plan. GME ATTESTATION.
[2020-10-06 20:00] VITALS: BP 129/61
[2020-10-06] MEDS: LEVEMIR (INSULIN DETEMIR) 1 UNITS/0.01ML SC SCH (20:56)
[2020-10-06] MEDS: SIMVASTATIN 20 MG TAB PO SCH (20:57)
[2020-10-07] VITALS: BP 130/60
[2020-10-07] MEDS: LEVALBUTEROL 1.25 MG/0.5 ML CONCENTRATE NEB NEB SCH ×4 (01:53→20:47)
[2020-10-07 04:00] VITALS: BP 133/65
[2020-10-07 05:38] LABS: BASO % 0.1 % (0.0-1.0); EOS % 0.2 % (0.0-3.0); HEMATOCRIT 37.5 % (36.0-47.0); HEMOGLOBIN 12.5 g/dl (12.0-15.5); LYMPH # 1.1 10^3/uL (1.5-5.0); LYMPH % 13.5 % (24.0-44.0); MEAN CORPUSCULAR HEMOGLOBIN 31.9 pg (27.0-33.0); MEAN CORPUSCULAR HGB CONC 33.3 g/dl (32.0-36.5); MEAN CORPUSCULAR VOLUME 95.7 fl (80.0-96.0); MONO # 0.9 10^3/uL (0.0-0.8); MONO % 10.8 % (2.0-8.0); NEUTROPHILS # 6.1 10^3/uL (1.5-8.5); NEUTROPHILS % 74.8 % (36.0-66.0); PLATELET COUNT, AUTOMATED 189 10^3/uL (150-450); RED BLOOD COUNT 3.92 10^6/uL (4.00-5.40); WHITE BLOOD COUNT 8.2 10^3/uL (4.0-10.0)
[2020-10-07 06:01] LABS: CALCIUM LEVEL 8.3 MG/DL (8.8-10.2); CREATININE FOR GFR 1.41 MG/DL (0.55-1.30); GLOMERULAR FILTRATION RATE 38.6 (>39); POTASSIUM SERUM 4.5 MEQ/L (3.5-5.1)
[2020-10-07 08:00] VITALS: BP 130/63
--- NOTE | 2020-10-07 09:06 | REP ---
INDICATION: when chest tube in. COMPARISON: Comparison chest x-ray October 06, 2020. TECHNIQUE: Two views.. FINDINGS: Right hemidiaphragm is elevated and there is blunting of the pleural angles on the right unchanged. There is no evidence of pneumothorax. Left lung remains clear. Atelectatic changes are noted in the right base. Surgical clips again distributed along the right chest wall in the axillary region. IMPRESSION: Right base atelectatic changes with elevated right hemidiaphragm. No change from the most recent comparison study. Recent chest tube removal.. <Electronically signed by Damien Braun > 10/07/20 0902
[2020-10-07] MEDS: MOM 30ML SUSPENSION UDC PO SCH (09:39)
[2020-10-07] MEDS: HumaLOG INSULIN (NovoLOG) PER UNIT SC SCH ×4 (09:40→20:12)
[2020-10-07] MEDS: VENLAFAXINE 37.5 MG TAB PO SCH ×2 (09:40→20:13)
[2020-10-07] MEDS: DOCUSATE SODIUM 100MG CAPSULE PO SCH ×2 (09:40→20:13)
[2020-10-07] MEDS: PANTOPRAZOLE 40MG TAB (PROTONIX) PO SCH (09:40)
[2020-10-07] MEDS: LEVEMIR (INSULIN DETEMIR) 1 UNITS/0.01ML SC SCH ×2 (09:40→20:12)
--- NOTE | 2020-10-07 09:50 | IPNPDOC ---
Subjective Date Seen The patient was seen on 10/07/20. Subjective Chief Complaint/HPI Feels a little shaky when she is walking to the bathroom otherwise feels ok. No SOb or chest pain. Her sugars were over 400 yesterday. Insulin adjusted. Objective Physical Examination General Exam: Positive: Alert, Cooperative, No Acute Distress Eye Exam: Positive: PERRLA, Conjunctiva & lids normal, EOMI; Negative: Sclera icteric ENT Exam: Positive: Atraumatic, Mucous membr. moist/pink, Pharynx Normal Neck Exam: Positive: Supple; Negative: JVD, thyromegaly Chest Exam: Positive: Normal air movement, Diminished (diminished at the right base), Other (right base crackles. ) Heart Exam: Positive: Rate Normal, Regular Rhythm, Normal S1, Normal S2; Negative: Murmurs, Rubs Abdomen Exam: Positive: Normal bowel sounds, Soft, Tenderness (in the umbilical region with mild erythema), Hernia (reducible umbilical hernia); Negative: Hepatospenomegaly Extremity Exam: Positive: Normal pulses; Negative: Clubbing, Cyanosis, Edema Assessment /Plan Assessment 75 year old female with h/o metastatic right breast cancer with possible mets to lungs and pleura, ckd stage 3, dm, htn, h/o DVT, HLD was at the n ephrologist's office for routine follow up when she complained of pain at her umbilical hernia. She has had umbilical hernia for about 3 years and usually reduces spontaneously when she lays down and not painful. But the hernia became painful and red to purple in color from last night and became irreducible. She had 10/10 sharp constant aching pain at the hernia and would not go down on pressing it. She complained about this to the development and planning engineer and the Patient was sent to the ed for evaluation of obstructed/ incarcerated umbilical hernia. CT abdomen abd and pelvis showed a small umbilical hernia containing fat. There was diffuse edema and inflammation of the fat, as well as a tiny amount of fluid in the hernia sac. THE FINDINGS were SUGGESTIVE OF A STRANGULATED UMBILICAL HERNIA. Incidentally it also showed large right pleural effusion. There was adjacent consolidation in the right lung base. Ice was applied with decreased swelling of the hernia and it was able to be gently reduced. Was evaluated by Dr Srivastava and recommended outpatient repair of the hernia. A CT chest was done to evaluate the right pleural effusion which confirmed the effusion with adjacent right lower lobe collapse. Dr Agrawal was consulted and he advised that the Patient needed a chest tube. Patient was admitted for right pleural effusion. Right sided Malignant pleural effusion from metastatic breast cancer 1600 cc removed after chest tube placement. Chest tube removed on 10/05, CXR on 10/06/20 again shows reaccumulation of the effusion. Dr Agrawal plans to insert a pleurx cath on 10/08/20 after the fluid accumulates some more. Seen by oncology. Has an appointment on 10/10/20 DM sugars uncontrolled levemir and lispro dosage adjusted FS ac and HS, Hypoglycemic protocol. Depression venlafaxine HLD statin H/o DVT on xarelto will hold as may need more procedures while in hospital. will be resumed on discharge. Obstructed Umbilical hernia reduced now freely reducible. follow up with surgery as outpatient. Plan/VTE VTE Prophylaxis Ordered?: Yes VS, I&O, 24H, Fishbone Vital Signs/I&O Vital Signs Date Time Temp Pulse Resp B/P (MAP) Pulse Ox O2 Delivery O2 Flow Rate FiO2 10/07/20 08:00 97.9 75 16 130/63 (85) 94 Room Air 10/04/20 07:11 2.0 I&O- Last 24 Hours up to 6 AM 10/07/20 06:00 Intake Total 1880 ml Output Total 1750 ml Balance 130 ml Laboratory Data 24H LABS Laboratory Tests 2 10/06/20 12:01: Bedside Glucose (Misc Panel) 293H 10/06/20 17:06: Bedside Glucose (Misc Panel) 402H 10/06/20 19:41: Bedside Glucose (Misc Panel) 403H 10/07/20 05:12: Immature Granulocyte % (Auto) 0.6, Neutrophils (%) (Auto) 74.8H, Lymphocytes (%) (Auto) 13.5L, Monocytes (%) (Auto) 10.8H, Eosinophils (%) (Auto) 0.2, Basophils (%) (Auto) 0.1, Neutrophils # (Auto) 6.1, Lymphocytes # (Auto) 1.1L, Monocytes # (Auto) 0.9H, Eosinophils # (Auto) 0.0, Basophils # (Auto) 0.0, Nucleated Red Blood Cells % (auto) 0.6H, Anion Gap 7L, Glomerular Filtration Rate 38.6L, Calcium Level 8.3L CBC/BMP Laboratory Tests 10/07/20 05:12 Microbiology Microbiology 10/02/20 Acid Fast Stain, Received Pending 10/02/20 Mycobacterial Culture, Received Pending 10/02/20 Fungal Smear, Received Pending 10/02/20 Fungal Culture, Received Pending 10/02/20 Gram Stain - Final, Complete 10/02/20 Anaerobic Culture - Final, Complete 10/02/20 Body Fluid Culture - Final, Complete LAUREL FARIAS MD Oct 07, 2020 09:50
[2020-10-07] MEDS ORDERED: FUROSEMIDE 100MG/10ML VIAL (J1940) IV ONE (10:00)
[2020-10-07 12:00] VITALS: BP 148/67
[2020-10-07] MEDS: PERCOCET 5MG/325MG TAB PO PRN (14:29)
[2020-10-07 16:00] VITALS: BP 131/60
[2020-10-07 20:00] VITALS: BP 141/65
[2020-10-07] MEDS: SIMVASTATIN 20 MG TAB PO SCH (20:13)
[2020-10-08] VITALS: BP 148/72
[2020-10-08] MEDS: LEVALBUTEROL 1.25 MG/0.5 ML CONCENTRATE NEB NEB SCH ×4 (01:48→20:58)
[2020-10-08 04:00] VITALS: BP 153/67
[2020-10-08 05:17] LABS: BASO % 0.2 % (0.0-1.0); EOS % 0.2 % (0.0-3.0); HEMATOCRIT 35.4 % (36.0-47.0); HEMOGLOBIN 11.4 g/dl (12.0-15.5); LYMPH % 17.2 % (24.0-44.0); MEAN CORPUSCULAR HEMOGLOBIN 30.9 pg (27.0-33.0); MEAN CORPUSCULAR HGB CONC 32.2 g/dl (32.0-36.5); MEAN CORPUSCULAR VOLUME 95.9 fl (80.0-96.0); MONO # 0.7 10^3/uL (0.0-0.8); NEUTROPHILS # 4.2 10^3/uL (1.5-8.5); NEUTROPHILS % 69.9 % (36.0-66.0); PLATELET COUNT, AUTOMATED 206 10^3/uL (150-450); RED BLOOD COUNT 3.69 10^6/uL (4.00-5.40)
[2020-10-08 05:40] LABS: CALCIUM LEVEL 8.1 MG/DL (8.8-10.2); CREATININE FOR GFR 1.73 MG/DL (0.55-1.30); GLOMERULAR FILTRATION RATE 30.5 (>39); POTASSIUM SERUM 4.7 MEQ/L (3.5-5.1)
[2020-10-08 07:23] VITALS: BP 153/70
--- NOTE | 2020-10-08 08:11 | REP ---
INDICATION: distribution of pleural effusion COMPARISON: 10/02/2020 TECHNIQUE: Axial noncontrast images from the thoracic inlet to the upper abdomen with coronal and sagittal reformations. This CT examination was performed using the following dose reduction techniques: Automated exposure control, adjustment of mA and/or kv according to the patient's size, and use of iterative reconstruction technique. FINDINGS: Large right pleural effusion is again identified along with right lower lobe consolidation with air bronchograms, as well as scattered atelectasis involving the right middle and lower lobes. Left hemithorax is relatively well aerated/clear and essentially stable. The remainder of the examination is essentially unchanged IMPRESSION: 1. Large right pleural effusion along with right lower lobe consolidation with air bronchograms and basilar atelectasis again noted. 2. No new acute process appreciated. <Electronically signed by Rodney Panda > 10/08/20 0896
--- NOTE | 2020-10-08 08:26 | REP ---
INDICATION: when chest tube in COMPARISON: 10/07/2020 TECHNIQUE: PA and lateral. FINDINGS: No visible chest tube identified. Large right pleural effusion with underlying right lower lobe atelectasis/consolidation. Aerated right upper lung zone and left hemithorax appear relatively clear. No obvious pneumothorax. Surgical clips are identified along the right lateral chest wall/axillary region. Visualized portions of the mediastinum and cardiac silhouette appear normal. IMPRESSION: Large right pleural effusion and associated right basilar opacities. <Electronically signed by Rodney Panda > 10/08/20 0801
[2020-10-08] MEDS: HumaLOG INSULIN (NovoLOG) PER UNIT SC SCH ×4 (08:31→21:31)
[2020-10-08] MEDS: LEVEMIR (INSULIN DETEMIR) 1 UNITS/0.01ML SC SCH ×2 (08:32→21:31)
[2020-10-08] MEDS: MOM 30ML SUSPENSION UDC PO SCH (08:32)
[2020-10-08] MEDS: DOCUSATE SODIUM 100MG CAPSULE PO SCH ×2 (08:32→21:30)
[2020-10-08] MEDS: PANTOPRAZOLE 40MG TAB (PROTONIX) PO SCH (08:32)
[2020-10-08] MEDS ORDERED: SLF 3 ML SYR IV PRN (09:05)
[2020-10-08] MEDS: VENLAFAXINE 37.5 MG TAB PO SCH ×2 (10:07→21:30)
[2020-10-08 10:31] LABS: OSMOLALITY SERUM 300 MOSM/KG (280-301)
[2020-10-08] MEDS ORDERED: flumazeniL 0.5 MG/5 ML VIAL As Ordered ONE (11:04)
[2020-10-08] MEDS ORDERED: MIDAZOLAM INJ 2MG/2ML VIAL (J2250 PER 1MG) As Ordered ONE ×2 (11:04→11:05)
[2020-10-08] MEDS ORDERED: LIDOCAINE 1% MDV 20ML VIAL As Ordered ONE (11:05)
--- NOTE | 2020-10-08 11:45 | IPN ---
PROGRESS NOTE DATE: 10/07/2020 SUBJECTIVE: Ms. Santiago states that she is breathing well today and sitting up in a chair. Her vital signs show a T-max of 90.5 with a heart rate that ranges between 75 to 92 in sinus rhythm, respiratory rate of 16 to 18 without the use of accessory muscles. Blood pressures range between 123/65 to 130/60. She is 94% saturated on room air. Her intake and output for the past 24 hours has been recorded as 2180 and 1300 out for a positive of 880 ml. Her weight today is 82 kg, was 81 kg yesterday. PHYSICAL EXAMINATION: Her lungs show decreased breath sounds in the right hemithorax with a dull percussion on the right hemithorax. Right lung shows no vesicular sounds sounds. Percussion is full at the diaphragm on the right. Cardiac examination is without murmurs, clicks, gallops or rubs. I can not feel her PMI. S1 and S2 are normal. Abdomen is soft, nontender. Bowel sounds are positive. No hepatomegaly. No costovertebral angle (CVA) tenderness. Extremities show 2 to 3+ pretibial edema on both sides; which is a change from yesterday. There is no differential swelling in the upper extremities. Her skin is warm and dry and perfuse, without cyanosis or modeling, including the nail beds and the knees. Neck is supple. There is no jugular venous distention. No subcutaneous emphysema. Trachea is midline. Mouth shows mucous membranes to be pink and moist, lips without scabs or lesions and no thrush. Eyes show pupils were equal and reactive. Extraocular movements intact. Sclerae nonicteric. Neuro: Shows II-XII intact. Normal gross motor, gross sensation. Gait is not tested. Psychiatric shows she is awake, alert, oriented x3 with appropriate mood and affect and conversational. Her white count today is 8.2, hemoglobin and hematocrit of 12.5 and 37.5, unchanged from yesterday with a platelet count of 189. Differential shows 74% neutrophils, 13% lymphocytes, 10% monocytes. There are no immature forms. No toxic granulations.. Her electrolytes are essentially normal with marginally low sodium of 134. BUN and creatinine are 44 and 1.41. Glucose is 181 with calcium of 8.3. X-ray shows increasing right opacity. Chest tube had been removed three days ago. IMPRESSION: 1. Recurrent right pleural effusion, malignant. 2. Diabetes. 3. Depression. 4. Dyslipidemia. 5. History of prior deep venous thrombosis (DVT). PLAN AND DISCUSSION: Her fluid is re-accumulating. I will wait until tomorrow for a good target. I plan a CT scan and no doubt place a PleurX catheter as this is now recurring within the last week. She has been seen and evaluated by oncology and I suspect they will start chemotherapy as an outpatient. Her breast cancer is ER/GA positive, but HER2 negative.
[2020-10-08 12:03] VITALS: BP 144/65
--- NOTE | 2020-10-08 12:12 | IPNPDOC ---
Text Note Date of Service The patient was seen on 10/08/20. NOTE SUBJECTIVE: -No dyspnea or chest pain at this time. OBJECTIVE: General: Alert, Cooperative, No Acute Distress Eyes: PERRLA, Conjunctiva & lids normal, EOMI, anicteric ENT: Atraumatic, Mucous membr. moist/pink, Pharynx Normal Neck: Supple, no JVD Chest: Diminished R posterior field, some air movement noted in apices, L field wnl Heart: Rate Normal, Regular Rhythm, Normal S1, Normal S2, no m/r/g Abdomen: Normal bowel sounds, Soft, mildly tender umbilicus with a reducible umbilical hernia, no palpable hepatosplenomegaly Extremities: Normal pulses, WWP, no peripheral edema Assessment: 75 year old W with metastatic breast cancer with mets to lungs and pleura, ckd stage 3, dm, htn, h/o DVT, HLD was at the fnps's office for routine follow up when she complained of pain at her umbilical hernia and was sent to the ed for evaluation of obstructed/ incarcerated umbilical hernia. CT abdomen abd and pelvis showed a small umbilical hernia containing fat SUGGESTIVE OF A STRANGULATED UMBILICAL HERNIA and also showed large right pleural effusion and an adjacent consolidation in the right lung base. She was evaluated by Dr Srivastava and recommended outpatient repair of the hernia. A dedicated CT chest was done to evaluate the right pleural effusion which confirmed the effusion with adjacent right lower lobe collapse. Dr Agrawal was consulted and he recommended drainage with pleurX placement. Right sided Malignant pleural effusion from metastatic breast cancer -1600 cc removed after chest tube placement. -Chest tube removed on 10/05, CXR on 10/06/20 again shows reaccumulation of the effusion. -Dr Agrawal plans to insert a pleurx cath today -Was seen by oncology, has appt 10/10/20 DM -continue levemir and lispro SSI -FS ac and HS, Hypoglycemic protocol. Depression -venlafaxine HLD -statin H/o DVT on xarelto -will hold as may need more procedures while in hospital. -will be resumed on discharge. Obstructed Umbilical hernia -reduced now freely reducible. -follow up with surgery as outpatient. DVT ppx: xarelto held for procedures. SCDs and TEDs. VS,Fishbone, I+O VS, Fishbone, I+O Laboratory Tests 10/08/20 04:52 Vital Signs Date Time Temp Pulse Resp B/P (MAP) Pulse Ox O2 Delivery O2 Flow Rate FiO2 10/08/20 07:23 98.0 78 18 153/70 (97) 97 Room Air 10/04/20 07:11 2.0 I&O- Last 24 Hours up to 6 AM 10/08/20 06:00 Intake Total 1660 ml Output Total 2550 ml Balance -890 ml JOSHUA KNIGHT MD Oct 08, 2020 08:41
[2020-10-08 12:17] LABS: LDH LACTATE DEHYDROGENASE 219 U/L (84-246)
--- NOTE | 2020-10-08 12:19 | REP ---
INDICATION: plurex cath insertion. COMPARISON: 10/08/2020 at 7:56 a.m. TECHNIQUE: Portable AP view of the chest FINDINGS: A chest tube at the right base is now suggested and the right pleural effusion is decreased. Underlying right lower lobe atelectasis/consolidation again noted. No obvious pneumothorax. Left hemithorax is relatively clear. Mediastinum and cardiac silhouette are stable. IMPRESSION: 1. Right chest tube with decreased right pleural effusion. <Electronically signed by Rodney Panda > 10/08/20 [id number]
[2020-10-08] MEDS ORDERED: LIDOCAINE 1% MDV 20ML VIAL SC ONE (13:05)
[2020-10-08] MEDS ORDERED: MIDAZOLAM INJ 2MG/2ML VIAL (J2250 PER 1MG) IV ONE (13:05)
[2020-10-08] MEDS: SLF 3 ML SYR IV SCH ×2 (13:22→21:31)
[2020-10-08 13:29] LABS: PH BODY FLUID 7.484 UNITS (NOT ESTABLISHED); SOURCE, BODY FLUID pH PLEURAL
[2020-10-08 13:42] LABS: APPEARANCE, BODY FLUID HAZY (CLEAR); PLEURAL FL COLOR PALE YELLOW (COLORLESS); SOURCE, BODY FLUID PLEURAL
[2020-10-08 14:01] LABS: AMYLASE, BODY FLUID 31 U/L (NOT ESTABLISHED); CHOLESTEROL, BODY FLUID 85 MG/DL (NOT ESTABLISHED); LDH, BODY FLUID 187 U/L (NOT ESTABLISHED); SOURCE, BODY FLUID ALBUMIN PLEURAL; SOURCE, BODY FLUID AMYLASE PLEURAL; SOURCE, BODY FLUID CHOL PLEURAL; SOURCE, BODY FLUID GLUCOSE PLEURAL; SOURCE, BODY FLUID LDH PLEURAL; SOURCE, BODY FLUID TOT PROTEIN PLEURAL; SOURCE, BODY FLUID TRIG PLEURAL; TOTAL PROTEIN, BODY FLUID 3.6 G/DL (NOT ESTABLISHED); TRIGLYCERIDE, BODY FLUID 47 MG/DL (NOT ESTABLISHED)
[2020-10-08 16:14] VITALS: BP 165/73
[2020-10-08 18:33] LABS: OSMOLALITY URINE 350 MOSM/KG (50-1400)
[2020-10-08 18:43] LABS: SODIUM,RANDOM URINE 22 MEQ/L
[2020-10-08 20:00] VITALS: BP 129/61
--- NOTE | 2020-10-08 21:15 | IPN ---
PROGRESS NOTE DATE: 10/08/2020 SUBJECTIVE: Patient is seen and examined this morning at bedside. She continues to tolerate a diet well. Denies any fever, chills, chest pain, difficulty breathing, shortness of breath, cough, abdominal pain, nausea, vomiting, constipation, or diarrhea. OBJECTIVE: Vital signs: Temperature of 98.0, afebrile overnight, pulse is 70 and regular, respiratory rate of 18, blood pressure 153/70, saturating 97% on room air. Intake and output: 1660 of intake, 2250 of output in the last 24 hours with a -590 mL fluid balance. PHYSICAL EXAMINATION: General: Well appearing female who appears stated age in no acute distress sitting comfortably in bed. HEENT: Head is normocephalic, atraumatic. Extraocular movements intact. No scleral icterus. Mucous membranes are moist. Nares are patent and atraumatic. Neck: No lymphadenopathy or jugular venous distension (JVD). Cardiovascular: Regular rate and rhythm, normal S1 and S2, no murmurs, gallops, rubs. Respiratory: Mild crackles appreciated in the right lower lobe. There is dullness to percussion on the right. There is E to A egophony on the right. No dullness to percussion on the left. No adventitious breath sounds on the left. No wheezes or rhonchi. Abdomen: Soft, nontender, nondistended. Bowel sounds present. No hepatosplenomegaly. No costovertebral (CVA) tenderness. Extremities: Continues to be about 1+ pitting edema in bilateral lower extremities below the level of the tibial tuberosity bilaterally. Skin: Warm, dry, perfusing well. No rashes or lesions. Neurologic: Cranial nerves II-XII are grossly intact. Gait is stable. Sensation is intact. Psychiatric: Alert, awake, oriented times three with appropriate mood and affect. LABORATORY DATA: White blood cell count of 6, hemoglobin 11.4, hematocrit 35.4, platelet count of 206, sodium 135, potassium 4.7, chloride 103, bicarbonate 28, BUN 51, creatinine 1.73, glucose 219, serum osmolality of 300, calcium 8.1, LDH of 219. Urine osmolality of 350, urine sodium of 22. Pleural fluid: pH of 7.484, fluid white blood cell count of 2410, red blood cells of 6, mononuclear cells of 77.8, PMN percentage of 22.2, pleural fluid glucose of 228, pleural fluid total protein 3.6, total fluid albumin of 1.8, fluid LDH of 187. Amylase 31, cholesterol 85, triglycerides 47. Gram stain showing few epithelial cells with no organism seen. Anaerobic culture results are pending. Acid fast stain is still pending. Body fluid culture is pending. Cytology is pending. IMAGING: Chest x-ray: Worsening right-sided pleural effusion compared to the day prior. Sharp costophrenic angle on the left. Pleura extend out to the lungs bilaterally. Trachea is midline. No mediastinal widening. Heart borders are regular. No signs of acute infiltrate bilaterally. ASSESSMENT: 1. Recurrent right pleural effusion, malignant. 2. Diabetes. 3. Depression. 4. Dyslipidemia. 5. History of deep venous thrombosis (DVT). PLAN: Based on the chest CT done and the chest x-ray, there is a large enough target to insert a PleurX catheter and we will proceed forward with that today and analyze the fluid results once they are back. Following this, she can likely be safely discharged after 24 hours of monitoring and followup in our office in the next 7-10 days to allow her to get to her oncology appointment on 10/10/2020. She will be given instructions on how to manage it and if need be can receive some nursing care at home for further help. My faculty preceptor for this patient encounter was physically present during the encounter and was fully available. All aspects of the patient interview, examination, medical decision making process, and medical care plan development were reviewed and approved by the faculty preceptor. The faculty preceptor is aware and concurs with the plan as stated in the body of this note and will attest to such by his/her co-signature. MARK
[2020-10-08] MEDS: SIMVASTATIN 20 MG TAB PO SCH (21:30)
[2020-10-09] VITALS: BP 134/68
[2020-10-09] MEDS: LEVALBUTEROL 1.25 MG/0.5 ML CONCENTRATE NEB NEB SCH ×3 (02:25→13:21)
[2020-10-09 04:00] VITALS: BP 141/63
[2020-10-09] MEDS: SLF 3 ML SYR IV SCH (05:15)
[2020-10-09 06:40] LABS: HEMATOCRIT 35.1 % (36.0-47.0); HEMOGLOBIN 11.5 g/dl (12.0-15.5); MEAN CORPUSCULAR HEMOGLOBIN 31.1 pg (27.0-33.0); MEAN CORPUSCULAR HGB CONC 32.8 g/dl (32.0-36.5); MEAN CORPUSCULAR VOLUME 94.9 fl (80.0-96.0); PLATELET COUNT, AUTOMATED 235 10^3/uL (150-450); WHITE BLOOD COUNT 5.2 10^3/uL (4.0-10.0)
[2020-10-09 07:03] LABS: CALCIUM LEVEL 8.5 MG/DL (8.8-10.2); CREATININE FOR GFR 1.28 MG/DL (0.55-1.30); GLOMERULAR FILTRATION RATE 43.2 (>39); POTASSIUM SERUM 4.4 MEQ/L (3.5-5.1)
[2020-10-09 07:24] VITALS: BP 142/78
[2020-10-09 08:00] VITALS: BP 137/76
--- NOTE | 2020-10-09 08:26 | REP ---
INDICATION: when chest tube in COMPARISON: 10/08/2020 TECHNIQUE: PA and lateral. FINDINGS: Right chest tube in stable position extending along the medial aspect of the right hemithorax. Moderate right pleural effusion relatively similar to prior examination. Associated right basilar atelectasis suggested. Left hemithorax is well aerated and clear. No new acute process identified. Mediastinum and cardiac silhouette are within normal limits. Skeletal structures are stable. Surgical clips overlying the right axillary region again noted. IMPRESSION: 1. Moderate right pleural effusion relatively similar to prior examination. 2. No new acute process appreciated. <Electronically signed by Rodney Panda > 10/09/20 [id number]
--- NOTE | 2020-10-09 08:28 | ECHO ---
DATE OF PROCEDURE: 10/08/2020 Age: 75 Gender: Female Height: 160 cm Weight: 82 kg REFERRING PHYSICIAN: Myles Chow DO INDICATION: Localized edema, unspecified. MEASUREMENTS: 2D Measurements: Aortic root 2.8 cm Intraventricular septum 1.20 cm Posterior wall 1.44 cm Left ventricle diastole 4.0 cm Left atrium 3.0 cm Aortic annulus 1.9 cm Inferior vena cava 0.9 cm (more than 50% respiratory variation) Doppler Measurements: No aortic stenosis No aortic regurgitation Aortic valve velocity 164 cm/s LVOT velocity 122 cm/s LVOT VTI 24.2 cm No mitral regurgitation No mitral stenosis Mitral E velocity 91.7 cm/s Mitral A velocity 141 cm/s Mitral deceleration time 243 msec Very mild tricuspid regurgitation Estimated right ventricular systolic pressure 34-39 mmHg Estimated right atrial pressure 5-10 mmHg No pulmonic regurgitation Pulmonary artery acceleration time 106 msec MITRAL ANNULAR TISSUE DOPPLER E prime septal 3.7 cm/s, E prime lateral 6.3 cm/s DESCRIPTION: Rhythm was sinus. Image quality was fair. No pericardial effusion. This was a 2D, M-mode, color flow Doppler, and pulsed wave Doppler examination including mitral annular tissue Doppler. CONCLUSIONS: 1. Mild concentric left ventricular hypertrophy. Normal regional LV wall motion and wall thickening. Normal LV systolic function. LVEF 65% by visual estimate. Grade 1 LV diastolic dysfunction. 2. Moderate aortic valve sclerosis of a 3-cuspid aortic valve. No aortic stenosis or regurgitation. 3. Severe mitral annular calcification. No mitral stenosis and no regurgitation. 4. Normal right ventricle size and systolic function. Suggestive of mild elevation of estimated right ventricle systolic pressure. Suggestive of normal CVP (5-10 mmHg). Nonspecific focal thickening involving the anterolateral tricuspid leaflet. 5. No pericardial effusion. MTDD
[2020-10-09] MEDS: PANTOPRAZOLE 40MG TAB (PROTONIX) PO SCH (08:50)
[2020-10-09] MEDS: MOM 30ML SUSPENSION UDC PO SCH (08:50)
[2020-10-09] MEDS: DOCUSATE SODIUM 100MG CAPSULE PO SCH (08:50)
[2020-10-09] MEDS: VENLAFAXINE 37.5 MG TAB PO SCH (08:50)
[2020-10-09] MEDS: HumaLOG INSULIN (NovoLOG) PER UNIT SC SCH ×2 (08:52→11:44)
[2020-10-09] MEDS: LEVEMIR (INSULIN DETEMIR) 1 UNITS/0.01ML SC SCH (08:53)
[2020-10-09 09:23] VITALS: BP 137/76
[2020-10-09] MEDS ORDERED: FUROSEMIDE 40MG/4ML VIAL (J1940) IV ONE (11:00)
[2020-10-09 11:28] VITALS: BP 142/65
--- NOTE | 2020-10-09 13:04 | IPN ---
PROGRESS NOTE DATE: 10/09/2020 SUBJECTIVE: No acute events overnight. The patient continues to do well. She had a PleurX catheter placed on her right side yesterday morning and is doing well. She currently denies any fever, chills, chest pain, difficulty breathing, shortness of breath, abdominal pain, nausea, vomiting, constipation, or diarrhea. She is scheduled for a follow-up appointment with Dr. Crump on 10/10 at 3 p.m. This was confirmed with the oncology office and she was informed of this as well. OBJECTIVE: VITAL SIGNS: Afebrile overnight. Temperature of 97.3, pulse 85 and regular, respiratory rate of 18, blood pressure 137/76, satting 97% on room air. INTAKE AND OUTPUT: Intake of 540, output of 3050 with 1200 mL of fluid drained from her PleurX yesterday. HEENT: Head is normocephalic, atraumatic. EOMI. No scleral icterus. Mucous membranes are moist. Nares are patent and atraumatic. NECK: No JVD or lymphadenopathy. CARDIOVASCULAR: Regular rate and rhythm. Normal S1 and S2. No murmurs, gallops, or rubs. RESPIRATORY: Inspiratory crackles appreciated particularly in the left lower lobe. Minimal dullness to percussion on the right. No E:A egophony on the right today. No adventitious breath sounds otherwise appreciated. No wheezes or rhonchi. ABDOMEN: Soft, nontender, and nondistended. Bowel sounds are present. No hepatosplenomegaly. No CVA tenderness. EXTREMITIES: 1+ pitting edema up to the level of the knees bilaterally. SKIN: Warm, dry, and perfusing well without rashes or lesions. NEUROLOGIC: Cranial nerves 2 through 12 are grossly intact. Gait is stable. Sensation is intact. PSYCHIATRIC: Alert, awake, and oriented x3 with appropriate mood and affect. LABORATORY DATA: CBC with white blood cell count of 5.2, hemoglobin 11.5, hematocrit 35.1, platelet count of 235,000. Sodium 136, potassium 4.4, chloride 105, bicarb 26, BUN 46, creatinine 1.28, glucose 131, calcium 8.5. Pleural fluid analysis consistent with exudative effusion. Pleural fluid cytology is still pending. DIAGNOSTIC IMAGING: Chest x-ray is showing a pleural effusion in the right lobe that is about the same size as it was yesterday. No acute infiltrates. Left costophrenic angle is normal. Heart borders are regular. Trachea is midline. PleurX extends out to the chest wall bilaterally. ASSESSMENT: 1. Recurrent right pleural effusion malignant. 2. Diabetes. 3. Depression. 4. Dyslipidemia. 5. History of deep vein thrombosis (DVT). PLAN: At this point because she continues to have some peripheral edema, we ordered an echo yesterday and she should get that prior to being discharged. We will also give her 40 mg of intravenous (IV) Lasix and she can follow-up with her PCP for the results of the echo. In terms of her PleurX catheter, she is okay for discharge from a thoracic surgery standpoint and should follow-up with Dr. Agrawal in the next ten days. We reached out to her oncology office and she does have an appointment at 3 p.m. on 10/10. It appears, she also had an appointment set up with Dr. Crump on 10/16 at 3 p.m. and he can determine tomorrow whether or not the follow-up appointment on the is appropriate. Otherwise, the patient should be okay for discharge and will be taught how to drain her PleurX catheter by nursing staff prior to discharge. She should be draining her PleurX catheter every other day. Thank you for involving us in the care of this patient. Dictated by Myles Chow DO in conjunction with attending Hamlet Agrawal M.D.
[2020-10-09] MEDS ORDERED: PERCOCET PO (13:49)
--- NOTE | 2020-10-09 13:54 | IPNPDOC ---
Text Note Date of Service The patient was seen on 10/09/20. NOTE SUBJECTIVE: -No dyspnea or chest pain at this time. OBJECTIVE: General: Alert, Cooperative, No Acute Distress Eyes: PERRLA, Conjunctiva & lids normal, EOMI, anicteric ENT: Atraumatic, Mucous membr. 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 CT abdomen abd and pelvis showed a small umbilical hernia containing fat SUGGESTIVE OF A STRANGULATED UMBILICAL HERNIA and also showed large right pleural effusion and an adjacent consolidation in the right lung base. She was evaluated by Dr Srivastava and recommended outpatient repair of the hernia. A dedicated CT chest was done to evaluate the right pleural effusion which confirmed the effusion with adjacent right lower lobe collapse. Dr Agrawal was consulted and he recommended drainage with pleurX placement. Right sided Malignant pleural effusion from metastatic breast cancer -1600 cc removed after chest tube placement. -Chest tube removed on 10/05, CXR on 10/06/20 again shows reaccumulation of the effusion. -Dr Agrawal placed pleurx yesterday, 10/08 -Was seen by oncology, has appt 10/10/20 DM -continue levemir and lispro SSI -FS ac and HS, Hypoglycemic protocol. Depression -venlafaxine HLD -statin H/o DVT on xarelto -will be resumed on discharge. Obstructed Umbilical hernia -reduced now freely reducible. -follow up with surgery as outpatient. DVT ppx: xarelto held for procedures. WIll restart today as she goes home. VS,Fishbone, I+O VS, Fishbone, I+O Laboratory Tests 10/09/20 05:54 Vital Signs Date Time Temp Pulse Resp B/P (MAP) Pulse Ox O2 Delivery O2 Flow Rate FiO2 10/09/20 07:24 98.0 79 18 142/78 (99) 98 Room Air 10/08/20 12:03 1.0 I&O- Last 24 Hours up to 6 AM 10/09/20 05:59 Intake Total 540 ml Output Total 2850 ml Balance -2310 ml JOSHUA KNIGHT MD Oct 09, 2020 09:05
--- NOTE | 2020-10-09 14:12 | DS.PDOC ---
Discharge Summary General Date of Admission Oct 02, 2020 at 16:58 Date of Discharge 10/09/2020 Attending Physician: JOSHUA KNIGHT MD Discharge Summary PROCEDURES PERFORMED DURING STAY: 10/02 chest tube placement and effusion drainage. 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 Right pleural effusion and there is nodular pleural thickening. CKD stage 3 DM H/O DVT HLD depression Dizziness HTN Asthma COMPLICATIONS/CHIEF COMPLAINT: Pleural Effusion. 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 She has had umbilical hernia for about 3 years and usually reduces spontaneously when she lays down and not painful, but the hernia became painful and red to purple in color and irreducible since the night before presentation. She had 10/10 sharp constant aching pain at the hernia and would not go down on pressing it. She complained about this to the shipping/receiving clerk and the she was sent to the ed for evaluation of obstructed/ incarcerated umbilical hernia. HOSPITAL COURSE: On evaluation, CT abdomen abd and pelvis showed a small umbilical hernia con taining fat. There was diffuse edema and inflammation of the fat, as well as a tiny amount of fluid in the hernia sac. THE FINDINGS were SUGGESTIVE OF A STRANGULATED UMBILICAL HERNIA. Incidentally it also showed large right pleural effusion. There was adjacent consolidation in the right lung base. Ice was applied with decreased swelling of the hernia and it was able to be gently reduced. It was evaluated by Dr Srivastava and he recommended outpatient repair of the hernia. A CT chest was done to evaluate the right pleural effusion which confirmed the large effusion with adjacent right lower lobe collapse. Dr Agrawal was consulted and he advised admission for tube thoracostomy she had drainage an d chest tube placement on 10/02 and removal on 10/05. Her course was c/b reaccumulation of the fluid that prompted Nghia to place a pleurX catheter on 10/08. She is now being discharged home where she will follow up with oncology, Dr. Agrawal given the recent pleurX, Dr. Srivastava for the hernia, nephrology and her PCP. DISCHARGE MEDICATIONS: Please see below. ALLERGIES: Please see below. PHYSICAL EXAMINATION ON DISCHARGE: VITAL SIGNS: Please see below. General: Alert, Cooperative, No Acute Distress Eyes: PERRLA, Conjunctiva & lids normal, EOMI, anicteric ENT: Atraumatic, Mucous membr. moist/pink, Pharynx Normal Neck: Supple, no JVD Chest: Diminished R posterior field, some air movement noted in apices, L field wnl Heart: Rate Normal, Regular Rhythm, Normal S1, Normal S2, no m/r/g Abdomen: Normal bowel sounds, Soft, mildly tender umbilicus with a reducible umbilical hernia, no palpable hepatosplenomegaly Extremities: Normal pulses, WWP, no peripheral edema LABORATORY DATA: Please see below. IMAGIN/23 CT A/P: Lung bases: There is a large right pleural effusion. There is adjacent consolidation in the right lung base. Liver: Normal Gallbladder: Unremarkable. Spleen: Normal. Adrenals: Normal. Pancreas: Normal. Kidneys: Normal. Small and large bowel: Unremarkable. Free fluid: None. Abdominal aorta: No aneurysm or dissection. Adenopathy: None. Appendix: Not inflamed. Osseous structures: There are degenerative changes of the spine without compression deformity. There are degenerative changes of both hips.. Pelvis: No mass. There is a small umbilical hernia containing fat. There is diffuse edema and inflammation of the fat, as well as a tiny amount of fluid in the hernia sac. THE FINDINGS ARE SUGGESTIVE OF A STRANGULATED UMBILICAL HERNIA. IMPRESSION: There is a large right pleural effusion. There is adjacent consolidation in the right lung base. There is a small umbilical hernia containing fat. There is diffuse edema and inflammation of the fat, as well as a tiny amount of fluid in the hernia sac. THE FINDINGS ARE SUGGESTIVE OF A STRANGULATED UMBILICAL HERNIA. 10/02 CT chest: Lungs: There is consolidation inferiorly in the right lung.. Mediastinum: No gross adenopathy. Liv: No gross adenopathy. Axilla: No gross adenopathy. Pleura: There is a large right pleural effusion which has increased since the prior study.. Heart: Not enlarged. Thoracic aorta: No aneurysm. Visualized osseous structures: There are degenerative changes of the spine with out compression deformity. IMPRESSION: Large right pleural effusion has increased since the prior study. Consolidation inferior right lung. 10/02 post procedure CXR: Cardiomegaly is observed. Monitoring electrodes are seen. Left lung is clear. There is a right chest tube in place. There is no evidence of pneumothorax or hydrothorax. There are surgical clips in the right axillary soft tissues.. The large right pleural effusion seen on CT study from October 02, 2020 has been a vacuo aided. IMPRESSION: Right chest tube in place. Previously noted right pleural effusion is no longer visible. No evidence of pneumothorax. No infiltrate seen. Heart is enlarged.. 10/03 CXR: The right thoracotomy tube is unchanged. There is effacement of the right costophrenic angle suggestive of a right p leural effusion. There is a focal atelectasis inferiorly in the right lung. Next I suspect there is a tiny right apical pneumothorax as an interval change. Left lung is clear. Cardiac size is normal. Surgical clips along the right lateral chest wall are unchanged. IMPRESSION: Right thoracotomy unchanged. Right pleural effusion. Atelectasis inferiorly in the right lung. Small right apical pneumothorax. 10/04 CXR: A right chest tube remains in place. There is a tiny right apical pneumothorax again seen unchanged. There is blunting of the right lateral pleural angle unchanged. No new infiltrate is seen. Monitoring electrodes are noted. There are surgical clips in the right axillary soft tissues. IMPRESSION: Right chest tube remains in place. Tiny right apical pneumothorax unchanged. Otherwise no acute findings.. 10/05 CXR: The lungs are well inflated and free of infiltrate. The pleural angles are sharp. The heart size is normal. Pulmonary vasculature is not increased. No sign ificant bony abnormality is seen. IMPRESSION: Right chest tube remains in place. Platelike atelectasis right base.. 10/06 CXR: The right chest tube is been removed in the interval since yesterday's radiograph. There is slight blunting of the right lateral and posterior pleural angles and discoid atelectasis is seen in the right base. There are surgical clips in the right axillary soft tissues. There is no evidence of pneumothorax. Left lung remains clear. Heart is not felt to be enlarged. Monitoring electrodes are seen. IMPRESSION: Right chest tube removed. Right based atelectatic change.. 10/07 CXR: Right hemidiaphragm is elevated and there is blunting of the pleural angles on the right unchanged. There is no evidence of pneumothorax. Left lung remains clear. Atelectatic changes are noted in the right base. Surgical clips again distributed along the right chest wall in the axillary region. IMPRESSION: Right base atelectatic changes with elevated right hemidiaphragm. No change from the most recent comparison study. Recent chest tube removal 10/08 CXR: No visible chest tube identified. Large right pleural effusion with underlying right lower lobe atelectasis/consolidation. Aerated right upper lung zone and left hemithorax appear relatively clear. No obvious pneumothorax. Surgical clips are identified along the right lateral chest wall/axillary region. Visualized portions of the mediastinum and cardiac silhouette appear normal. IMPRESSION: Large right pleural effusion and associated right basilar opacities 10/08 CT chest: Large right pleural effusion is again identified along with right lower lobe consolidation with air bronchograms, as well as scattered atelectasis involving the right middle and lower lobes. Left hemithorax is relatively well aerated/clear and essentially stable. The remainder of the examination is essentially unchanged IMPRESSION: 1. Large right pleural effusion along with right lower lobe consolidation with air bronchograms and basilar atelectasis again noted. 2. No new acute process appreciated. 10/08 post pleurX placement CXR: A chest tube at the right base is now suggested and the right pleural effusion is decreased. Underlying right lower lobe atelectasis/consolidation again noted. No obvious pneumothorax. Left hemithorax is relatively clear. Mediastinum and cardiac silhouette are stable. IMPRESSION: 1. Right chest tube with decreased right pleural effusion. 10/09 CXR: Right chest tube in stable position extending along the medial aspect of the right hemithorax. Moderate right pleural effusion relatively similar to prior examination. Associated right basilar atelectasis suggested. Left hemithorax is well aerated and clear. No new acute process identified. Mediastinum and cardiac silhouette are within normal limits. Skeletal structures are stable. Surgical clips overlying the right axillary region again noted. IMPRESSION: 1. Moderate right pleural effusion relatively similar to prior examination. 2. No new acute process appreciated. PROGNOSIS: good ACTIVITY: As tolerated DIET: consistent carb, 2g sodium DISCHARGE PLAN: Home with services for pleurX care monitoring DISPOSITION: Home DISCHARGE INSTRUCTIONS: Home with services for pleurX care monitoring ITEMS TO FOLLOWUP ON ON OUTPATIENT: onc follow up for metastatic breast CA malignant pleural effusion with new pleurX catheter nephrology follow up Umbilical hernia follow up with surgery PCP follow up DISCHARGE CONDITION: Stable TIME SPENT ON DISCHARGE: 56 minutes. Vital Signs/I&Os Vital Signs Date Time Temp Pulse Resp B/P (MAP) Pulse Ox O2 Delivery O2 Flow Rate FiO2 10/09/20 11:28 97.4 76 18 142/65 (90) 97 Room Air 10/08/20 12:03 1.0 I&O- Last 24 Hours up to 6 AM 10/09/20 06:00 Intake Total 540 ml Output Total 2500 ml Balance -1960 ml Laboratory Data Labs 24H Laboratory Tests 2 10/08/20 16:39: Urine Osmolality 350, Urine Random Sodium 22 10/08/20 17:33: Bedside Glucose (Misc Panel) 236H 10/08/20 20:43: Bedside Glucose (Misc Panel) 382H 10/09/20 05:54: Nucleated Red Blood Cells % (auto) 0.0, Anion Gap 5L, Glomerular Filtration Rate 43.2, Calcium Level 8.5L 10/09/20 11:08: Bedside Glucose (Misc Panel) 191H CBC/BMP Laboratory Tests 10/09/20 05:54 FSBS Laboratory Tests Test 10/08/20 17:33 10/08/20 20:43 10/09/20 11:08 Range/Units Bedside Glucose (Misc Panel) 236 382 191 83-110 MG/DL Microbiology Microbiology 10/08/20 Acid Fast Stain, Received Pending 10/08/20 Mycobacterial Culture, Received Pending 10/08/20 Fungal Smear, Received Pending 10/08/20 Fungal Culture, Received Pending 10/08/20 Gram Stain - Final, Resulted 10/08/20 Anaerobic Culture, Resulted Pending 10/08/20 Body Fluid Culture, Received Pending 10/02/20 Acid Fast Stain, Received Pending 10/02/20 Mycobacterial Culture, Received Pending 10/02/20 Fungal Smear, Received Pending 10/02/20 Fungal Culture, Received Pending 10/02/20 Gram Stain - Final, Complete 10/02/20 Anaerobic Culture - Final, Complete 10/02/20 Body Fluid Culture - Final, Complete Discharge Medications Scheduled Aspirin (Aspirin EC) 81 Mg Tablet.dr, 81 MG PO QHS, (Reported) Cholecalciferol (Vitamin D3) (Vitamin D3) 1,000 Unit Tablet, 1,000 UNITS PO QHS, (Reported) Empagliflozin (Jardiance) 25 Mg Tablet, 25 MG PO QHS, (Reported) Fulvestrant (Faslodex) 250 Mg/5 Ml Syringe, 500 MG IM QMONTH, (Reported) Insulin Glargine,Hum.rec.anlog (Basaglar Kwikpen U-100) 100 Unit/1 Ml Insuln.pen, 32 UNIT SC QHS, (Reported) Iron Ps Complex/B12/Folic Acid (Poly-Iron 150 Forte Capsule) 1 Each Capsule, 1 CAP PO QHS, (Reported) Liraglutide (Victoza 2-Juan Carlos) 0.6 Mg/0.1 Ml Pen.injctr, 1.2 MG SC QHS, (Reported) Rivaroxaban (Xarelto) 20 Mg Tablet, 20 MG PO QHS, (Reported) Simvastatin (Simvastatin) 20 Mg Tab, 20 MG PO QHS, (Reported) Venlafaxine HCl (Venlafaxine HCl) 75 Mg Tablet, 75 MG PO BID, (Reported) Scheduled PRN Acetaminophen (Tylenol Arthritis) 650 Mg Tablet.er, 650 MG PO Q8H PRN for PAIN, (Reported) Oxycodone/Acetaminophen (Oxycodone-Acetaminophen 5-325) 1 Each Tablet, 1 TAB PO Q4H PRN for MODERATE PAIN (PS 5-7) Allergies Coded Allergies: adhesive tape (Verified Allergy, Intermediate, rash, 12/23/18) exenatide (Verified Allergy, Mild, itching, 12/23/18) JOSHUA KNIGHT MD Oct 09, 2020 14:12
--- NOTE | 2020-10-10 08:23 | RO ---
OPERATIVE NOTE DATE OF OPERATION: 10/07/2020 PREPROCEDURE DIAGNOSIS: Recurrent right malignant pleural effusion. POSTPROCEDURE DIAGNOSIS: Recurrent right malignant pleural effusion. PROCEDURE: Insertion of a right PleurX catheter. SURGEON: Hamlet Agrawal M.D. SLIP TENDER: Luis. ANESTHESIA: DESCRIPTION OF PROCEDURE: The patient was prepped and draped in the usual sterile fashion after confirming the correct side with the chest CT on the screen. The entry site was infiltrated with 1% Lidocaine through the subcutaneous tissue, the extrathoracic muscles, and the pleura. Exploring needle was placed and serous fluid was found. A wire was then placed. The exit site was then chosen and again infiltrated with 1% Lidocaine. The course of the proposed tunnel was then infiltrated with 1% Lidocaine from the entry to the exit site. The entry and exit sites were incised and a tunnel was created from the exit site to the entry site with the tunneling instrument. The PleurX catheter was then pulled through the tunnel. The wire tract was then dilated and a Peel-Away introducer placed. The PleurX catheter was then placed through the Peel-Away introducer at the same time peeling away the introducer. The catheter was appropriately positioned. The entry incision was closed with running 4-0 Monocryl subcutaneous suture. The catheter was secured to the chest wall with 2-0 silk suture. The patient was drained of 1000 mL of serous fluid, which was sent for all the requisite studies of cytologies, hematologies, chemistries, and bacteriologies. The patient tolerated the procedure well and a chest x-ray is pending.
== END 2020-10-09 15:32 | disposition home health service (06) | DRG 598 ==
LOC: M ED 12:10 → M ED INP 16:58 → M PCU 17:39
PROVIDERS: ADMIT Thoracic Surgery (Cardiothoracic Vascular Surgery); ATTEND Internal Medicine
PROC: 0W9930Z Drainage of Right Pleural Cavity with Drainage Device, Percutaneous Approach (ICD-10-PCS; principal; 2020-10-02)
PROC: 0W9930Z Drainage of Right Pleural Cavity with Drainage Device, Percutaneous Approach (ICD-10-PCS; 2020-10-07)
DX: C50.911 Malignant neoplasm of unspecified site of right female breast (principal); K42.0 Umbilical hernia with obstruction, without gangrene; J91.0 Malignant pleural effusion; C78.00 Secondary malignant neoplasm of unspecified lung; I12.9 Hypertensive chronic kidney disease with stage 1 through stage 4 chronic kidney disease, or unspecified chronic kidney disease; N18.30 Chronic kidney disease, stage 3 unspecified; Z92.3 Personal history of irradiation; Z92.21 Personal history of antineoplastic chemotherapy; E11.9 Type 2 diabetes mellitus without complications; F32.9 Major depressive disorder, single episode, unspecified; J45.909 Unspecified asthma, uncomplicated; Z86.718 Personal history of other venous thrombosis and embolism; Z79.82 Long term (current) use of aspirin; Z79.899 Other long term (current) drug therapy; Z88.8 Allergy status to other drugs, medicaments and biological substances; Z79.01 Long term (current) use of anticoagulants; E78.5 Hyperlipidemia, unspecified

== ENCOUNTER → 2020-10-17 | Outpatient (CLI) | payer MEDICARE ==
[~2020-10-17] MED LIST changes: +AMMO12CR7 TOP; +ASPI-161 PO; +D31000TA2 PO; +JARD1TAB3 PO; +PERCOCET PO; +POLY150C5 PO; +VENL-37 PO; +XARE20TA PO
--- NOTE | 2020-10-17 15:28 | REP ---
INDICATION: MALIGNANT PLEURAL EFFUSION; RT BREAST MALIGNANT NEOPLASM. COMPARISON: PA and lateral chest dated 10/09/2020. TECHNIQUE: Upright PA and lateral chest. FINDINGS: There is a right pleural effusion similar to the prior study. However, on the current study there is a new large focal density inferiorly in the right lung, likely new pleural fluid loculated in the minor fissure as an interval change. The left lung is clear. There are surgical clips along the right lateral chest wall, unchanged. Cardiac size is normal. Liv, mediastinum, and skeletal structures are unremarkable. IMPRESSION: Persisting right pleural effusion. New large density inferiorly in the right lung, likely loculated pleural fluid in the minor fissure. <Electronically signed by Channing Traore > 10/17/20 [id number]
== END ==
LOC: M CLY 14:22
PROVIDERS: ATTEND Thoracic Surgery (Cardiothoracic Vascular Surgery)
DX: C50.911 Malignant neoplasm of unspecified site of right female breast (principal); J91.0 Malignant pleural effusion; R91.8 Other nonspecific abnormal finding of lung field

== ENCOUNTER → 2020-10-22 | Outpatient (CLI) | payer MEDICARE ==
[~2020-10-22] MED LIST changes: +AMOX875T2 PO; +FURO40TA2 PO; +LISI20TA33 PO; +NORV5TAB PO; +SELF1KIT MC; +TORS10TA3 PO; +TORS20TA2 PO
--- NOTE | 2020-10-22 12:10 | REPPI ---
INDICATION: MALIGNANT PLEURAL EFFUSION. COMPARISON: Multiple the latest 10/17/2020 TECHNIQUE: PA and lateral FINDINGS: Right mid and lower lung field opacities are unchanged. The right-sided thoracotomy tube is unchanged. The cardiomediastinal silhouette is unchanged. Right hemithoracic surgical clips are noted status quo. There is no change in the osseous structures. IMPRESSION: Right lung field opacities are unchanged and again consistent with pleural fluid collections. <Electronically signed by Otto Lopez > 10/22/20 [id number]
== END ==
LOC: M PLAIMG 10:08
PROVIDERS: ATTEND Thoracic Surgery (Cardiothoracic Vascular Surgery)
DX: C50.911 Malignant neoplasm of unspecified site of right female breast (principal); J91.0 Malignant pleural effusion

== ENCOUNTER → 2020-10-24 | Outpatient (CLI) | payer MEDICARE ==
[~2020-10-24] MED LIST changes: -AMOX875T2 PO; -FURO40TA2 PO; -LISI20TA33 PO; -NORV5TAB PO; -SELF1KIT MC; -TORS10TA3 PO; -TORS20TA2 PO
--- NOTE | 2020-10-24 09:29 | REP ---
INDICATION: MALIGNANT NEOPLASM RT BREAST ? METS. COMPARISON: 10/08/2020. TECHNIQUE: CT chest performed without the use of intravenous contrast. Sagittal and coronal reconstruction images are performed. FINDINGS: There is a very large right pleural effusion which has increased in size compared to prior studies. Once again there is adjacent consolidative opacity in the right lung. The right chest tube is seen posteriorly, the tip is posteromedially in the right pleural space just below the level of the aortic arch. No pleural effusion is seen on the left in the left lung demonstrates no acute changes. Multiple metallic clips are again seen in the right axilla. There is no evidence of axillary adenopathy bilaterally. Subcentimeter mediastinal lymph nodes are present. There is mild atherosclerotic calcification of the thoracic aorta without aneurysm. The heart is not significantly enlarged. I suspect a nodule at the right dome of the liver in a subcapsular location, approximately 1.7 cm in diameter. There are degenerative changes of the spine without compression deformity. IMPRESSION: Very large right pleural effusion has increased in size. There is adjacent consolidative opacity in the right lung. Right chest tube is seen posteriorly. Ill-defined nodule is suspected at the right dome of the liver in a subcapsular location measuring 1.7 cm in diameter. <Electronically signed by Channing Sanchez > 10/24/20 [id number]
== END ==
LOC: M RAD 08:20
PROVIDERS: ATTEND Thoracic Surgery (Cardiothoracic Vascular Surgery)
DX: J90 Pleural effusion, not elsewhere classified (principal); R91.8 Other nonspecific abnormal finding of lung field; C50.911 Malignant neoplasm of unspecified site of right female breast

== ENCOUNTER 2020-10-25 10:59 | Inpatient (IN) | payer MEDICARE ==
[~2020-10-25] VITALS: Ht 160 cm; Wt 81.4 kg
[2020-10-25] VITALS (9 sets, daily range): BP systolic 131–174; BP diastolic 60–79
[2020-10-25] MEDS ORDERED: PERCOCET 5MG/325MG TAB PO PRN ×2 (11:05)
[2020-10-25] MEDS ORDERED: D5W/0.9% SODIUM CHLORIDE 1,000 ML IV SCH (11:05)
[2020-10-25] MEDS ORDERED: ONDANSETRON 4MG/2ML VIAL IV PRN (11:05)
[2020-10-25] MEDS ORDERED: LEVALBUTEROL 1.25 MG/0.5 ML CONCENTRATE NEB NEB PRN (11:05)
[2020-10-25] MEDS ORDERED: BISACODYL 10 MG SUPP PR PRN (11:05)
[2020-10-25] MEDS ORDERED: flumazeniL 0.5 MG/5 ML VIAL As Ordered ONE (11:34)
[2020-10-25] MEDS ORDERED: MIDAZOLAM INJ 2MG/2ML VIAL (J2250 PER 1MG) As Ordered ONE (11:34)
[2020-10-25] MEDS ORDERED: LIDOCAINE 1% MDV 20ML VIAL As Ordered ONE (11:35)
[2020-10-25 12:36] LABS: BASO % 0.1 % (0.0-1.0); EOS % 0.1 % (0.0-3.0); HEMATOCRIT 35.3 % (36.0-47.0); HEMOGLOBIN 11.5 g/dl (12.0-15.5); LYMPH % 11.9 % (24.0-44.0); MEAN CORPUSCULAR HEMOGLOBIN 30.9 pg (27.0-33.0); MEAN CORPUSCULAR HGB CONC 32.6 g/dl (32.0-36.5); MEAN CORPUSCULAR VOLUME 94.9 fl (80.0-96.0); MONO # 0.8 10^3/uL (0.0-0.8); MONO % 9.3 % (2.0-8.0); NEUTROPHILS # 6.3 10^3/uL (1.5-8.5); NEUTROPHILS % 78.1 % (36.0-66.0); PLATELET COUNT, AUTOMATED 243 10^3/uL (150-450); RED BLOOD COUNT 3.72 10^6/uL (4.00-5.40); WHITE BLOOD COUNT 8.1 10^3/uL (4.0-10.0)
[2020-10-25] MEDS ORDERED: MIDAZOLAM INJ 2MG/2ML VIAL (J2250 PER 1MG) IV ONE (13:02)
[2020-10-25] MEDS ORDERED: DEXTROSE 50% 50 ML SYRINGE IV PRN (13:05)
[2020-10-25] MEDS ORDERED: GLUCAGON INJ 1MG VIAL SC PRN (13:05)
[2020-10-25] MEDS ORDERED: GLUCOSE 4GM CHEW TABLET PO PRN (13:05)
[2020-10-25] MEDS ORDERED: LIDOCAINE 1% MDV 20ML VIAL IM ONE (13:05)
[2020-10-25 13:27] LABS: ALBUMIN 2.4 GM/DL (3.2-5.2); BILIRUBIN,TOTAL 0.3 MG/DL (0.2-1.0); CALCIUM LEVEL 8.5 MG/DL (8.8-10.2); CREATININE FOR GFR 1.21 MG/DL (0.55-1.30); GLOMERULAR FILTRATION RATE 46.1 (>39); POTASSIUM SERUM 3.8 MEQ/L (3.5-5.1); THYROID STIMULATING HORMONE 1.83 uIU/ML (0.358-3.740); TOTAL PROTEIN 5.9 GM/DL (6.4-8.2)
[2020-10-25] MEDS: LEVALBUTEROL 1.25 MG/0.5 ML CONCENTRATE NEB NEB SCH ×2 (13:32→20:13)
[2020-10-25 13:35] LABS: INR 1.8; PROTHROMBIN TIME 21.3 SECONDS (12.5-14.3)
[2020-10-25] MEDS: HumaLOG INSULIN (NovoLOG) PER UNIT SC SCH ×3 (14:20→21:39)
--- NOTE | 2020-10-25 14:36 | REP ---
INDICATION: after chest tube placement. COMPARISON: Comparison chest x-ray October 17, 2020. Comparison chest x-ray October 22, 2020. TECHNIQUE: Portable upright AP chest radiograph. FINDINGS: Monitoring electrodes are seen. There are surgical clips in the right axillary/breast soft tissues. There are 2 right-sided chest tubes noted in place. A new chest tube is seen at positioned at the right base. There is no evidence of pneumothorax. Pleural opacity along the minor fissure is again seen. The left lung remains essentially clear.. IMPRESSION: New, 2nd, right chest tube in position near the base. Pleural opacity persists in the right base. No pneumothorax.. <Electronically signed by Damien Braun > 10/25/20 [id number]
[2020-10-25 14:52] LABS: PH BODY FLUID 7.646 UNITS (NOT ESTABLISHED); SOURCE, BODY FLUID pH PLEURAL
[2020-10-25 14:53] LABS: SOURCE, BODY FLUID PLEURAL
[2020-10-25 14:54] LABS: APPEARANCE, BODY FLUID CLEAR (CLEAR); PLEURAL FL COLOR YELLOW (COLORLESS)
--- NOTE | 2020-10-25 15:09 | HPEPDOC ---
[facility] Medical History & Physical Date of Admission Oct 25, 2020 Date of Service: Oct 25, 2020 Attending Physician: JOSHUA KNIGHT MD History and Physical CHIEF COMPLAINT: Increased SOB and pleurX catheter not draining HISTORY OF PRESENT ILLNESS: 75 year old W with metastatic right breast cancer with mets to lungs and pleura, ckd stage 3, dm, htn, h/o DVT, HLD who was recently admitted for a suspected strangulated umbilical hernia and she had a noted larged R pleural effusion and Nghia was consulted drained it by chest tube placement on 10/02 and removal on 10/05 with reaccumulation for which he placed a pleurX catheter on 10/08. On 10/24 she had a follow chest CT per Dr. Agrawal in the outpatient setting and it showed a very large right pleural effusion that has increased in size with an adjacent consolidative opacity in the right lung that has been previously noted, while on history she was reporting no significant drainage from her pleurX. On 10/[address] Agrawal for chest tube placement for now loculated effusion with per pleurX catheter now unable to drain the fluid and he placed a chest tube and gave local tPA to break apart the loculated septations with eventual successful drainage. She is now being admitted to medicine with chest tube to low intermittent suction with Dr. Agrawal on consult for chest tube management. Of note, ROS was negative for fever, chills, new cough, rhinorrhea, congestion, sputum production, pleurisy, chest pain or hemoptysis. Today WBC count was 8.1, Hgb 11.5, platelets 243, Na 134, K 3.8, Cr 1.21. There is little suspicion for potential infection and will therefore follow up pleural studies but not begin empiric antibiotics at this time. 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 with malignant right pleural effusion and there is nodular pleural thickening s/p R pleurX CKD stage 3 DM H/O DVT HLD depression Dizziness HTN Asthma Surgical History Right breast lumpectomy tubal ligation bilateral cataract surgery Chest tube and pleurX catheter placement Family History FATHER: , LIVER DISEASE MOTHER: , GI BLEED DAUGHTER HAS MS Social History Smoker: Denies Alcohol: Denies Drugs: denies Review of Systems Constitutional: No Chills, Fever, Night Sweats Eyes: No pain of vision changes ENT: No Head Aches, Ear Pain or Dysphagia Skin: No newly noted Rash, Lesions or Breakdown Pulmonary: Increasingly short of breath and had orthopnea as well. Also reported that pleurX was not draining. Cardiovascular: No recent chest pain, palpitations, paroxysmal noc. dyspnea or light headedness Gastrointestinal: No abdominal pain, nausea, vomiting, diarrhea or constipation Physical Examination General: Alert, Cooperative, No Acute Distress. on 4L NC Eye Exam:: PERRLA, Conjunctiva & lids normal, EOMI, anicteric ENT: Atraumatic, Mucous membr. moist/pink, Pharynx Normal Neck: Supple, no oz JVD or palpable thyromegaly Chest: Symmetric chest rise, dullness to percussion in posterior R lung lung field with diminished breath sounds in R base up to midlung colmenares, L side with good air movement, no wheezing or rhonchi. Has chest tube in place, no leakage or surrounding erythema Heart: Rate Normal, Regular Rhythm, Normal S1, Normal S2, no m/r/g Abdomen: Normal bowel sounds, soft, has an umbilical hernia, obese, NTND Extremities: Bilateral LE 1+ pitting edema, WWP Labs and Imaging: as described above in HPI. see below for details. Assessment: 75 year old W with metastatic right breast cancer with mets to lungs and pleura, ckd stage 3, dm, htn, h/o DVT, HLD who was recently admitted for a suspected strangulated umbilical hernia and she had a noted larged R pleural effusion and Nghia was consulted drained it by chest tube placement on 10/02 and removal on 10/05 with reaccumulation for which he placed a pleurX catheter on 10/08 before discharge home, who now returned with loculation of the pleural effusion with ineffective drainage by pleurX now s/p chest tube replacement, tPA with successful drainage. Right sided pleural effusion -Known malignant effusion from metastatic breast cancer for which she had a recent pleurX placement with Dr. Agrawal but pleurX stopped draining and imaging showing loculation now s/p TPA and breakup of septations with chest tube placement and drainage. -chest tube in place and managed by Dr. Agrawal -Dr. Agrawal was fine with restarting her xarelto -daily CXR -f/u pleural fluid studies, low suspicion for infection -supplemental O2 -low suspicion for infection, will hold off empiric abx and f/u pleural fluid studies DM -levemir 35u QHS per home script and lispro SSI -FS BG AC/HS -Hypoglycemic protocol. Depression -continue home venlafaxine HLD -continue home simvastatin H/o DVT -continue home xarelto Vital Signs Vital Signs Date Time Temp Pulse Resp B/P (MAP) Pulse Ox O2 Delivery O2 Flow Rate FiO2 10/25/20 12:06 97.1 82 18 152/78 (102) 92 Room Air Laboratory Data Labs 24H Laboratory Tests 2 10/25/20 12:24: Immature Granulocyte % (Auto) 0.5, Neutrophils (%) (Auto) 78.1H, Lymphocytes (%) (Auto) 11.9L, Monocytes (%) (Auto) 9.3H, Eosinophils (%) (Auto) 0.1, Basophils (%) (Auto) 0.1, Neutrophils # (Auto) 6.3, Lymphocytes # (Auto) 1.0L, Monocytes # (Auto) 0.8, Eosinophils # (Auto) 0.0, Basophils # (Auto) 0.0, Nucleated Red Blood Cells % (auto) 0.0, Prothrombin Time 21.3H, Prothromb Time International Ratio 1.80, Activated Partial Thromboplast Time 45.0H, Anion Gap 4L, Glomerular Filtration Rate 46.1, Calcium Level 8.5L, Total Bilirubin 0.3, Aspartate Amino Transf (AST/SGOT) 8, Alanine Aminotransferase (ALT/SGPT) 13, Alkaline Phosphatase 120H, Lactate Dehydrogenase 181, Total Protein 5.9L, Albumin 2.4L, Albumin/Globulin Ratio 0.7L, Thyroid Stimulating Hormone (TSH) 1.830 CBC/BMP Laboratory Tests 10/25/20 12:24 Home Medications Scheduled Aspirin (Aspirin EC) 81 Mg Tablet.dr 81 MG PO QHS Cholecalciferol (Vitamin D3) (Vitamin D3) 1,000 Unit Tablet, 1,000 UNITS PO QHS Fulvestrant (Faslodex) 250 Mg/5 Ml Syringe, 500 MG IM QMONTH Insulin Glargine,Hum.rec.anlog (Basaglar Kwikpen U-100) 100 Unit/1 Ml Insuln.pen, 32 UNIT SC QHS Iron Ps Complex/B12/Folic Acid (Poly-Iron 150 Forte Capsule) 1 Each Capsule, 1 CAP PO QHS Liraglutide (Victoza 2-Juan Carlos) 0.6 Mg/0.1 Ml Pen.injctr, 1.2 MG SC QHS Rivaroxaban (Xarelto) 20 Mg Tablet, 20 MG PO QHS Simvastatin (Simvastatin) 20 Mg Tab, 20 MG PO QHS Venlafaxine HCl (Venlafaxine HCl) 75 Mg Tablet, 75 MG PO BID Scheduled PRN Acetaminophen (Tylenol Arthritis) 650 Mg Tablet.er, 650 MG PO Q8H PRN for PAIN Allergies Coded Allergies: adhesive tape (Verified Allergy, Intermediate, rash, 12/23/18) exenatide (Verified Allergy, Mild, itching, 12/23/18) A-FIB/CHADSVASC A-FIB History Current/History of A-Fib/PAF?: No Current PO Anticoag Therapy: Yes Age/Risk Factor Scoring CHADSVASC: CHADSVASC Response (Comments) Value Age Risk Factor Age >/= 75 years old 2 Total 2 Treatment Treatment ordered: Rivaroxaban JOSHUA KNIGHT MD Oct 25, 2020 14:28
[2020-10-25 15:12] LABS: AMYLASE, BODY FLUID 31 U/L (NOT ESTABLISHED); CHOLESTEROL, BODY FLUID 90 MG/DL (NOT ESTABLISHED); LDH, BODY FLUID 118 U/L (NOT ESTABLISHED); SOURCE, BODY FLUID AMYLASE PLEURAL; SOURCE, BODY FLUID CHOL PLEURAL; SOURCE, BODY FLUID GLUCOSE PLEURAL; SOURCE, BODY FLUID LDH PLEURAL; SOURCE, BODY FLUID TRIG PLEURAL; TRIGLYCERIDE, BODY FLUID 61 MG/DL (NOT ESTABLISHED)
[2020-10-25 15:16] LABS: SOURCE, BODY FLUID ALBUMIN PLEURAL; SOURCE, BODY FLUID TOT PROTEIN PLEURAL; TOTAL PROTEIN, BODY FLUID 3.9 G/DL (NOT ESTABLISHED)
--- NOTE | 2020-10-25 16:45 | CR ---
CONSULTATION DATE: 10/25/2020 Patient seen at the request of the hospitalist service for shortness of breath and recurrent pleural effusion. HISTORY OF PRESENT ILLNESS: Patient is a 75-year-old white female who was recently discharged from this hospital on 10/09/2020 after presenting with a large right-sided pleural effusion and shortness of breath. At first a chest tube was placed, which showed a mildly exudative pleural effusion. Chest tube was eventually removed, the fluid reaccumulated, and PleurX catheter was placed. Fluid was returned as malignancy consistent with metastatic breast carcinoma. I have seen her in the office over the last 2 weeks, and her shortness of breath has returned, and her pleural effusion has become worse on chest x-ray. She was initially draining 1200 mL from the PleurX catheter, which then ceased. PleurX catheter was cleared and still there was no fluid returned. A chest CT showed her to have recurrent pleural effusion, which was loculated with the PleurX catheter not draining the loculations. She has known diabetes, mild renal insufficiency, and hypertension. She also had an incarcerated umbilical hernia, which has since been reduced and is asymptomatic. MEDICAL HISTORY: See history of present illness (HPI). 1. Diabetes. 2. Hypertension. 3. Depression. 4. Breast cancer. 5. Arthritis. 6. Renal insufficiency. 7. Sleep apnea. SURGICAL HISTORY: 1. Tubal ligation. 2. Right breast lumpectomy. HABITS: Does not smoke. No history of drug abuse. Denies imbibing alcohol. TRAVEL HISTORY: She traveled to [facility] and to the [facility]. EXPOSURES: No birds, cats, or dogs at home. No prior exposure to tuberculosis. 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 FAMILY HISTORY: Her brother has Waldenstrom's macroglobulinemia. Her father of liver disease and mother from gastrointestinal (GI) bleeding. A sister with metastatic carcinoma of unknown origin. REVIEW OF SYSTEMS: CONSTITUTIONAL: Without fever, chills, sweats, or night sweats. NOSE: Without epistaxis. EYES: Without diplopia, without amaurosis fugax, and without prior jaundice. RESPIRATORY: See HPI. CARDIAC: Without anginal pain. Does have orthopnea in the last few days when she sleeps in a recliner. Also, as noted, peripheral edema. GASTROINTESTINAL: Without nausea, vomiting, constipation, melena, hematochezia. GENITOURINARY: Without dysuria or hematuria. PSYCHIATRIC: Without anxieties or psychoses. NEUROLOGIC: Without paresthesias, paralyses, or amaurosis fugax. PHYSICAL EXAMINATION: Well-developed, well-nourished, obese female in slight distress from shortness of breath. Vital signs: Temperature is 97.1, heart rate 82 in a sinus rhythm, respiratory rate of 18 without the use of accessory muscles, who is 92% saturated on room air and whose blood pressure is 152/78. Eyes: Pupils equal, round, and reactive to light. Extraocular movements are intact. Sclerae anicteric. Nose without deformity. Mouth shows the mucous membranes to be pink and moist. Lips and commissures without lesions. There is no thrush. Teeth are in good repair. Head is normocephalic. Neck is supple. There is no jugular venous distention. No subcutaneous emphysema. Trachea is midline. There is no lymphadenopathy, carotid bruits, or thyromegaly. Lungs show markedly decreased breath sounds on the right side with a dull percussion note at the right lower hemithorax. Left side shows scattered rhonchi, which cleared with coughing. Percussion notes are full to the diaphragm on the left and dull in the right hemithorax in the lower half. Cardiac exam is without murmurs, clicks, gallops, or rubs. I cannot feel her point of maximal impulse (PMI). S1 and S2 are normal. Abdomen is soft and nontender. Bowel sounds are positive. There is no hepatomegaly. No costovertebral angle (CVA) tenderness. The umbilicus hernia is nontender and not incarcerated. Extremities show 2+ pretibial edema. No calf tenderness, no differential swelling of the upper extremities. Skin is warm, dry, and perfused without cyanosis or mottling, including that of the nailbeds and knees. Neurologic shows II-XII intact. Normal gross motor, gross sensation intact. Gait is also intact. Psychiatric shows her to be awake, alert, and oriented times three with appropriate mood and affect and conversational. INVESTIGATIONS: White count today is 8.1 with a hemoglobin and hematocrit of 11.5 and 35.3, respectively. Platelet count is 243. Differential shows 78% neutrophils, 11% lymphocytes, and 9% monocytes. There are no immature forms or toxic granulations. Chemistries today show a marginally low sodium of 134. BUN and creatinine are 26 and 1.21. Glucose is 316. Calcium is 8.5 with a corresponding albumin of 2.4. AST and ALT are normal. PT and INR are 21.3 and 1.80, respectively with a PTT of 45 seconds. IMPRESSION: 1. Recurrent malignant pleural effusion, now loculated. 2. Metastatic breast cancer. 3. Hypertension. 4. Diabetes. 5. Remote history of deep venous thrombosis (DVT). 6. Hypertension. PLAN AND DISCUSSION: Because the PleurX catheter is not working, I will place a chest tube. Will drain the chest as completely as possible and follow chest x-rays. If the chest does not completely drain, I will administer tPA tomorrow to clear the chest. Hopefully after doing so the pleural effusion will coalesce and will be able to be drained via the PleurX catheter. HOME MEDICATIONS: - Tylenol 650 mg every 8 hours as needed for pain - aspirin 81 mg daily - cholecalciferol 1000 units daily - Faslodex 500 mg monthly - glargine insulin 32 units subcutaneous every night - iron, B12, folic acid complex one capsule daily - liraglutide 1.2 mg subcutaneous every night - Xarelto 20 mg every night - simvastatin 20 mg every night - venlafaxine 75 mg by mouth twice a day.
--- NOTE | 2020-10-25 16:53 | RO ---
OPERATIVE NOTE DATE OF OPERATION: 10/25/2020 PREOPERATIVE DIAGNOSIS: Loculated right pleural effusion. POSTOPERATIVE DIAGNOSIS: Loculated right pleural effusion. PROCEDURE: Insertion of right posterolateral chest tube with moderate sedation. SURGEON: Dr. Hamlet Agrawal DESCRIPTION OF PROCEDURE: After satisfactory moderate sedation achieved with 3 mg of Versed, patient was prepped and draped in the usual sterile fashion. The 6th intercostal space along with the 7th rib were infiltrated with 1% lidocaine to include the skin, subcutaneous tissue, and pleura. Incision was made, and tunnel was created in the chest without difficulty. A #24 chest tube was placed. It drained 1000 mL of yellow fluid. Chest tube was secured to the chest wall with #2 Tevdek suture and connected to the Pleur-evac. Specimens will be sent for the requisite chemistries, hematologies, cytologies, and bacteriologies. Patient tolerated the procedure well, and a chest x-ray is pending.
[2020-10-25] MEDS: RIVAROXABAN 20 MG TAB (XARELTO) PO SCH (18:28)
[2020-10-25] MEDS: DOCUSATE SODIUM 100MG CAPSULE PO SCH (21:00)
[2020-10-25] MEDS ORDERED: SLF 3 ML SYR IV PRN (21:10)
[2020-10-25] MEDS: VITAMIN D 1,000 INTERNATIONAL UNITS TABLET PO SCH (21:38)
[2020-10-25] MEDS: VENLAFAXINE 37.5 MG TAB PO SCH (21:38)
[2020-10-25] MEDS: ASPIRIN 81MG ENTERIC TABLET PO SCH (21:38)
[2020-10-25] MEDS: MULTIVITAMINS/MINERALS THERAP 1 TAB PO SCH (21:39)
[2020-10-25] MEDS: SIMVASTATIN 20 MG TAB PO SCH (21:39)
[2020-10-25] MEDS: LEVEMIR (INSULIN DETEMIR) 1 UNITS/0.01ML SC SCH (21:40)
[2020-10-25] MEDS: SLF 3 ML SYR IV SCH (21:40)
[2020-10-25] MEDS: ACETAMINOPHEN TAB 650MG DOSE (2X325MG) PO PRN (23:08)
[2020-10-26] VITALS: BP 158/72
[2020-10-26] MEDS: LEVALBUTEROL 1.25 MG/0.5 ML CONCENTRATE NEB NEB SCH ×4 (00:39→19:50)
[2020-10-26 04:00] VITALS: BP 160/76
[2020-10-26] MEDS: SLF 3 ML SYR IV SCH ×3 (05:32→22:28)
[2020-10-26] MEDS: HumaLOG INSULIN (NovoLOG) PER UNIT SC SCH ×4 (07:30→20:39)
[2020-10-26 08:00] VITALS: BP 177/77
--- NOTE | 2020-10-26 08:19 | REP ---
INDICATION: after chest tube placement. COMPARISON: Yesterday TECHNIQUE: PA and lateral FINDINGS: The cardiomediastinal silhouette is essentially unchanged. Right hemithoracic postoperative changes are again noted. The opacity seen previously in the right mid lung zone is unchanged, however, there is improved aeration of the right lower lobe inferior to the aforementioned opacity. The right sided thoracotomy tube is unchanged. There is a minimal opacity in the left CP angle. There is no significant change in the osseous structures. IMPRESSION: 1. Stable right mid lung zone opacity. 2. Improved aeration right lower lobe. 3. Suspect subsegmental atelectatic change versus tiny pleural effusion left CP angle. 4. Unchanged chest tube. 5. Other findings as described above. <Electronically signed by Otto Lopez > 10/26/20 [id number]
--- NOTE | 2020-10-26 08:51 | IPN ---
PROGRESS NOTE DATE: 10/26/2020 SUBJECTIVE: Ms. Santiago is breathing a lot easier today. She is comfortable and pain is being well controlled at the chest tube insertion site. OBJECTIVE: VITAL SIGNS: Show a T-max of 97.5 with a heart rate that ranges between 83 and 85 in sinus rhythm. Respiratory rate that is constant 18 who is 93% to 95% saturated on room air and whose blood pressure is ranging between 158/72 to 160/76. INTAKE AND OUTPUT: Over the past 24 hours has been recorded as 860 in and 1645 out for a negativity of 785 mL. She has put 1595 mL from the chest tube and there is no air leak. Her weight today is 78.2 kg today compared to 78.6 kg yesterday. RESPIRATORY: She still has coarse rhonchi and rales in the right lower hemithorax. Percussion notes, however, are full to the diaphragm. Left lung shows normal vesicular sounds. CARDIAC: Without murmurs, clicks, gallops, or rubs. I cannot feel her PMI. S1 and S2 are normal. ABDOMEN: Soft and nontender. Bowel sounds are positive. There is no hepatomegaly. No CVA tenderness. EXTREMITIES: Show no pretibial edema. No calf tenderness. No differential swelling of the upper extremities. SKIN: Warm, dry, and perfused without cyanosis or mottling, including that of the nail beds and knees. NECK: Supple. There is no jugular venous distention. No subcutaneous emphysema. Trachea is midline. MOUTH: Shows the mucous membranes to be pink and moist. Lips and commisures are without lesions and no thrush. EYES: Show her pupils equal and reactive. Extraocular muscles are intact. Sclerae nonicteric. NEUROLOGIC: Shows II through XII intact. Normal gross motor, gross sensation intact. Gait is not tested. PSYCHIATRIC: Shows her to be awake, alert, and oriented x3 with appropriate mood and affect and conversational. LABORATORY DATA: Her chemistries and hematologies are still pending and I will review them later today. Her pleural fluid has been returned with a pH of 7.64 with an LDH of 118 with a serum LDH of 181. Her pleural fluid total protein is 3.9 with a serum total protein of 5.9. There were 1118 white cells of which 49% were mononuclears and 50% were PMNs. This therefore looks like an exudative effusion. We already know the prior effusion was malignant and I suspect that is what it is going to turner off to be. The gram strain showed no organisms. Culture is pending. IMAGING DATA: Her chest x-ray today still shows a loculation in the mid lung field. Costophrenic angle is clearing on the right side after placement of the chest tube. The chest tube is in good place. IMPRESSION: 1. Metastatic malignant pleural effusion loculated. 2. Metastatic breast cancer. 3. Hypertension. 4. Diabetes. 5. Remote history of DVT. 6. Hypertension. 7. Arthritis. 8. History of renal insufficiency with lab results pending today. PLAN AND DISCUSSION: In order to coalesce this loculation, I will place tPA intrapleurally. We will keep the chest tube clamped for four hours and then roll her [id number] to distribute the tPA. Hopefully, we will be able to relieve the loculation, as I suspect it will only come back, and it is not in the course of the PleurX catheter.
[2020-10-26] MEDS ORDERED: ALTEPLASE 2MG/2ML VIAL XX ONE (09:00)
[2020-10-26] MEDS: MOM 30ML SUSPENSION UDC PO SCH (09:00)
[2020-10-26 09:30] LABS: BASO % 0.3 % (0.0-1.0); EOS % 0.1 % (0.0-3.0); HEMATOCRIT 37.6 % (36.0-47.0); LYMPH % 13.3 % (24.0-44.0); MEAN CORPUSCULAR HEMOGLOBIN 30.5 pg (27.0-33.0); MEAN CORPUSCULAR HGB CONC 31.9 g/dl (32.0-36.5); MEAN CORPUSCULAR VOLUME 95.7 fl (80.0-96.0); MONO # 0.7 10^3/uL (0.0-0.8); MONO % 9.4 % (2.0-8.0); NEUTROPHILS # 5.5 10^3/uL (1.5-8.5); NEUTROPHILS % 76.5 % (36.0-66.0); PLATELET COUNT, AUTOMATED 238 10^3/uL (150-450); RED BLOOD COUNT 3.93 10^6/uL (4.00-5.40); WHITE BLOOD COUNT 7.2 10^3/uL (4.0-10.0)
[2020-10-26 09:53] LABS: CALCIUM LEVEL 8.5 MG/DL (8.8-10.2); CREATININE FOR GFR 1.08 MG/DL (0.55-1.30); GLOMERULAR FILTRATION RATE 52.5 (>39); POTASSIUM SERUM 3.9 MEQ/L (3.5-5.1)
[2020-10-26] MEDS: VENLAFAXINE 37.5 MG TAB PO SCH ×2 (10:20→20:25)
[2020-10-26] MEDS: PANTOPRAZOLE 40MG TAB (PROTONIX) PO SCH (10:20)
[2020-10-26] MEDS: DOCUSATE SODIUM 100MG CAPSULE PO SCH ×2 (10:20→20:25)
[2020-10-26 12:00] VITALS: BP 153/78
[2020-10-26] MEDS: NORCO, ANEXSIA 5/325MG TABLET (HYDROcodone/ACETAMINOPHEN) PO PRN (12:49)
--- NOTE | 2020-10-26 14:41 | IPNPDOC ---
Text Note Date of Service The patient was seen on 10/26/20. NOTE SUBJECTIVE: -Now on room air, doing well, no acute complaints Physical Examination General: Alert, Cooperative, No Acute Distress. on 4L NC Eye Exam:: PERRLA, Conjunctiva & lids normal, EOMI, anicteric ENT: Atraumatic, Mucous membr. moist/pink, Pharynx Normal Neck: Supple, no oz JVD or palpable thyromegaly Chest: Symmetric chest rise, dullness to percussion in posterior R lung lung field with diminished breath sounds in R base, L side with good air movement, no wheezing or rhonchi. Has chest tube in place, no leakage or surrounding erythema Heart: Rate Normal, Regular Rhythm, Normal S1, Normal S2, no m/r/g Abdomen: Normal bowel sounds, soft, has an umbilical hernia, obese, NTND Extremities: Bilateral LE 1+ pitting edema, WWP Labs and Imaging: Pending AM CBC, BMP and CXR Assessment: 75 year old W with metastatic right breast cancer with mets to lungs and ple ura, ckd stage 3, dm, htn, h/o DVT, HLD who was recently admitted for a suspected strangulated umbilical hernia and she had a noted larged R pleural effusion and Nghia was consulted drained it by chest tube placement on 10/02 and removal on 10/05 with reaccumulation for which he placed a pleurX catheter on 10/08 before discharge home, who now returned with loculation of the pleural effusion with ineffective drainage by pleurX now s/p chest tube replacement and tPA with thoracic surgery onboard. Right sided pleural effusion -Known malignant effusion from metastatic breast cancer for which she had a recent pleurX placement with Dr. Agrawal but pleurX stopped draining c/b loculation now s/p chest tube placement and tPA w/ breakup of septations and drainage. -chest tube in place and managed by Dr. Agrawal -Dr. Agrawal was fine with restarting her xarelto -daily CXR -f/u pleural fluid studies, low suspicion for infection -low suspicion for infection, will hold off empiric abx and f/u pleural fluid studies DM -levemir 35u QHS per home script and lispro SSI -FS BG AC/HS -Hypoglycemic protocol. Depression -continue home venlafaxine HLD -continue home simvastatin H/o DVT -continue home xarelto VS,Fishbone, I+O VS, Fishbone, I+O Laboratory Tests 10/25/20 12:24 Vital Signs Date Time Temp Pulse Resp B/P (MAP) Pulse Ox O2 Delivery O2 Flow Rate FiO2 10/26/20 04:00 97.5 83 18 160/76 (104) 95 Room Air I&O- Last 24 Hours up to 6 AM 10/26/20 06:00 Intake Total 860 ml Output Total 2110 ml Balance -1250 ml JOSHUA KNIGHT MD Oct 26, 2020 08:10
[2020-10-26 16:00] VITALS: BP 171/74
[2020-10-26] MEDS: RIVAROXABAN 20 MG TAB (XARELTO) PO SCH (18:41)
[2020-10-26 19:58] VITALS: BP 135/63
[2020-10-26] MEDS: SIMVASTATIN 20 MG TAB PO SCH (20:25)
[2020-10-26] MEDS: ASPIRIN 81MG ENTERIC TABLET PO SCH (20:25)
[2020-10-26] MEDS: VITAMIN D 1,000 INTERNATIONAL UNITS TABLET PO SCH (20:25)
[2020-10-26] MEDS: MULTIVITAMINS/MINERALS THERAP 1 TAB PO SCH (20:25)
[2020-10-26] MEDS: LEVEMIR (INSULIN DETEMIR) 1 UNITS/0.01ML SC SCH (20:26)
[2020-10-27] VITALS: BP 157/70
[2020-10-27] MEDS: LEVALBUTEROL 1.25 MG/0.5 ML CONCENTRATE NEB NEB SCH ×4 (01:08→19:15)
[2020-10-27 04:00] VITALS: BP 145/67
[2020-10-27] MEDS: SLF 3 ML SYR IV SCH ×2 (05:26→12:48)
[2020-10-27 08:00] VITALS: BP_SYST 156; BP_DIAS 71; BP_DIAS 72
--- NOTE | 2020-10-27 08:28 | REP ---
INDICATION: after chest tube placement. COMPARISON: Comparison chest x-ray October 26, 2020 and October 25, 2020. TECHNIQUE: Two views.. FINDINGS: A right basilar chest tube remains in place terminating in the medial costovertebral angle. There is continued improvement in the loculated right pleural effusion. Small air-fluid levels are seen in the right mid lung in fissural fluid collection. There is some pleural thickening along the right lateral chest wall and some volume loss in the right mid thorax persists unchanged. The left lung remains clear. Monitoring electrodes are seen. There are surgical clips in the soft tissues of the right axilla and breast region. IMPRESSION: Right chest tube remains in place at the base. Continued improvement right loculated pleural fluid.. <Electronically signed by Damien Braun > 10/27/20 [id number]
[2020-10-27 08:46] LABS: BASO % 0.2 % (0.0-1.0); EOS % 0.2 % (0.0-3.0); HEMATOCRIT 35.3 % (36.0-47.0); HEMOGLOBIN 11.4 g/dl (12.0-15.5); LYMPH # 1.2 10^3/uL (1.5-5.0); LYMPH % 15.3 % (24.0-44.0); MEAN CORPUSCULAR HEMOGLOBIN 30.6 pg (27.0-33.0); MEAN CORPUSCULAR HGB CONC 32.3 g/dl (32.0-36.5); MEAN CORPUSCULAR VOLUME 94.9 fl (80.0-96.0); MONO # 0.8 10^3/uL (0.0-0.8); MONO % 9.4 % (2.0-8.0); NEUTROPHILS % 74.3 % (36.0-66.0); PLATELET COUNT, AUTOMATED 270 10^3/uL (150-450); RED BLOOD COUNT 3.72 10^6/uL (4.00-5.40); WHITE BLOOD COUNT 8.1 10^3/uL (4.0-10.0)
[2020-10-27] MEDS ORDERED: FUROSEMIDE 40MG/4ML VIAL (J1940) IV ONE (09:00)
[2020-10-27 09:07] LABS: CREATININE FOR GFR 1.11 MG/DL (0.55-1.30); GLOMERULAR FILTRATION RATE 50.9 (>39)
--- NOTE | 2020-10-27 09:18 | REP ---
INDICATION: status of pleural effusion loculation. Metastatic right breast malignancy. COMPARISON: Comparison CT study October 24, 2020.. TECHNIQUE: Helical scanning is acquired. 3 mm axial images are generated. Coronal and sagittal MPR and coronal MIP images are generated. FINDINGS: The right chest tube is seen along the dome of the diaphragm. There is a right posterior PleurX catheter in place as well. Today's CT study demonstrates improvement in the loculated hydropneumothorax. There is loculated fluid along the major fissure and minor fissure on the right and air-fluid levels are seen in the fluid along the minor fissure. A tiny amount of pleural air is seen anterior to the lung. The process is improved considerably since the October 24, 2020 study. Rounded fullness of the right hilus suggests adenopathy. There is mitral there is mitral annular calcification. The left lung remains clear. Visualized upper abdominal structures are unremarkable. There are surgical clips in the right axillary soft tissues. IMPRESSION: Loculated right-sided hydropneumothorax status post Pleurx and basilar chest tube placement. Significant improvement noted since the October 24, 2020 study. <Electronically signed by Damien Braun > 10/27/20 0914
[2020-10-27] MEDS: DOCUSATE SODIUM 100MG CAPSULE PO SCH ×2 (09:29→20:04)
[2020-10-27] MEDS: VENLAFAXINE 37.5 MG TAB PO SCH ×2 (09:29→20:05)
[2020-10-27] MEDS: PANTOPRAZOLE 40MG TAB (PROTONIX) PO SCH (09:29)
[2020-10-27] MEDS: HumaLOG INSULIN (NovoLOG) PER UNIT SC SCH ×4 (09:30→20:17)
[2020-10-27] MEDS: MOM 30ML SUSPENSION UDC PO SCH (09:30)
[2020-10-27] MEDS: NORCO, ANEXSIA 5/325MG TABLET (HYDROcodone/ACETAMINOPHEN) PO PRN (09:31)
--- NOTE | 2020-10-27 11:11 | IPNPDOC ---
Text Note Date of Service The patient was seen on 10/27/20. NOTE SUBJECTIVE: -Continues to be on room air, doing well, no acute complaints, had tPA yesterday with management of chest tube by Dr. Agrawal Physical Examination General: Alert, Cooperative, No Acute Distress. on 4L NC Eye Exam:: PERRLA, Conjunctiva & lids normal, EOMI, anicteric ENT: Atraumatic, Mucous membr. moist/pink, Pharynx Normal Neck: Supple, no oz JVD or palpable thyromegaly Chest: Symmetric chest rise, diminished breath sounds in R base, L side with good air movement, no wheezing or rhonchi. Has R sided chest tube in place, no leakage or surrounding erythema Heart: Rate Normal, Regular Rhythm, Normal S1, Normal S2, no m/r/g Abdomen: Normal bowel sounds, soft, has an umbilical hernia, obese, NTND Extremities: Bilateral LE 1+ pitting edema, WWP Labs and Imaging: reviewed. Assessment: 75 year old W with metastatic right breast cancer with mets to lungs and pleura, ckd stage 3, dm, htn, h/o DVT, HLD who was recently admitted for a suspected strangulated umbilical hernia and she had a noted larged R pleural effusion and [place] was consulted drained it by chest tube placement on 10/02 and removal on 10/05 with reaccumulation for which he placed a pleurX catheter on 10/08 before discharge home, who now returned with loculation of the pleural effusion with ineffective drainage by pleurX now s/p chest tube replacement and tPA with thoracic surgery onboard. Right sided pleural effusion -Known malignant effusion from metastatic breast cancer for which she had a recent pleurX placement with Dr. Agrawal but pleurX stopped draining c/b loculation now s/p chest tube placement and tPA w/ breakup of septations and drainage. -chest tube in place and managed by Dr. Agrawal -Dr. Agrawal was fine with restarting her xarelto -daily CXR -f/u pleural fluid studies, low suspicion for infection -low suspicion for infection, no empiric abx DM -levemir 35u QHS per home script and lispro SSI -FS BG AC/HS -Hypoglycemic protocol. Depression -continue home venlafaxine HLD -continue home simvastatin H/o DVT -continue home xarelto VS,Fishbone, I+O VS, Fishbone, I+O Laboratory Tests 10/26/20 09:05 Vital Signs Date Time Temp Pulse Resp B/P (MAP) Pulse Ox O2 Delivery O2 Flow Rate FiO2 10/27/20 04:00 97.5 88 18 145/67 (93) 94 Room Air I&O- Last 24 Hours up to 6 AM 10/27/20 06:00 Intake Total 1980 ml Output Total 2820 ml Balance -840 ml JOSHUA KNIGHT MD Oct 27, 2020 08:11
[2020-10-27 12:00] VITALS: BP 148/68
--- NOTE | 2020-10-27 12:26 | IPN ---
PROGRESS NOTE DATE: 10/27/2020 Ms. Santiago's pain is being fairly well controlled at the chest tube insertion site. She did have some fairly good results from her tPA pleurolysis yesterday, draining 570 mL after the chest tube was unclamped. She is breathing well today. Her vital signs show a maximum temperature of 97.6 with a heart rate that ranges between 85-88 in a sinus rhythm, respiratory rate of 16-18 without the use of accessory muscles, who is 94%-97% saturated on room air and whose blood pressure is ranging between 157/70 to 145/67. Her intake and output for the past 24 hours has been recorded as 1860 in and 2425 out, for a negativity of 565 mL. She has put out a total of 775 mL from the chest tube. Her weight today is 78.4 kg compared to 78.2 kg yesterday. PHYSICAL EXAMINATION: Her lungs now show equal breath sounds on either side. I hear no E-to-A egophony. Neither do I hear bronchophony in the right lower hemithorax. Percussion notes are full to the diaphragm. Cardiac exam is without murmurs, clicks, gallops, or rubs. I cannot feel her point of maximal impulse (PMI). S1 and S2 are normal. Abdomen is soft and nontender. Bowel sounds are positive. There is no hepatomegaly. No costovertebral angle (CVA) tenderness. Extremities show 2+ pretibial edema on the left and 1+ on the right. There is no calf tenderness, no differential swelling of the upper extremities. Skin is warm, dry, and perfused without cyanosis or mottling, including that of the nailbeds and knees. Neck is supple. There is no jugular venous distention. No subcutaneous emphysema. Trachea is midline. Mouth shows the mucous membranes to be pink and moist. Lips and commissures without lesions. No thrush. Eyes show her pupils to be equal and reactive. Extraocular motion intact. Sclerae anicteric. Neurologic shows II-XII intact. Normal gross motor, gross sensation intact. Gait is not tested. Psychiatric shows her to be awake, alert, and oriented times three with appropriate mood and affect and conversational. Her white count today is 7.2 with a hemoglobin and hematocrit of 12.0 and 37.6, essentially unchanged from yesterday, with a platelet count of 238. Differential shows 76% neutrophils, 13% leukocytosis, 9% monocytes. There are no immature forms or toxic granulations. Her chemistries show normal electrolytes with a BUN and creatinine of 25 and 1.08 with a glucose of 157 and a calcium of 8.5. I discussed her pleural fluid yesterday looking exudative. Her chest x-ray today still shows an opacity in the right mid thorax, looking like loculated fluid, most likely the fissure. There is also a posterior loculation on the lateral film. Her costophrenic angles show some minimal blunting. Chest tube is in good place, just above the diaphragm. IMPRESSION: 1. Metastatic malignant pleural effusion, loculated. 2. Metastatic breast cancer. 3. Hypertension. 4. Diabetes. 5. Remote history of deep venous thrombosis (DVT). 6. Hypertension. 7. Arthritis. 8. History of renal insufficiency, resolved. PLAN AND DISCUSSION: Because of the appearance of the chest x-ray, I will obtain a CT without contrast today to look at the distribution of the pleural effusion. I will continue her chest tube on suction. I will also diurese here.
[2020-10-27 16:00] VITALS: BP 162/72
[2020-10-27] MEDS: RIVAROXABAN 20 MG TAB (XARELTO) PO SCH (17:36)
[2020-10-27 20:00] VITALS: BP 150/79
[2020-10-27] MEDS: ASPIRIN 81MG ENTERIC TABLET PO SCH (20:04)
[2020-10-27] MEDS: VITAMIN D 1,000 INTERNATIONAL UNITS TABLET PO SCH (20:04)
[2020-10-27] MEDS: SIMVASTATIN 20 MG TAB PO SCH (20:04)
[2020-10-27] MEDS: MULTIVITAMINS/MINERALS THERAP 1 TAB PO SCH (20:04)
[2020-10-27] MEDS: LEVEMIR (INSULIN DETEMIR) 1 UNITS/0.01ML SC SCH (20:05)
[2020-10-28] VITALS (7 sets, daily range): BP systolic 71–159; BP diastolic 48–72
[2020-10-28] MEDS: SLF 3 ML SYR IV SCH ×4 (00:18→23:09)
[2020-10-28] MEDS: LEVALBUTEROL 1.25 MG/0.5 ML CONCENTRATE NEB NEB SCH ×4 (01:08→18:22)
[2020-10-28 06:29] LABS: BASO % 0.1 % (0.0-1.0); EOS % 0.1 % (0.0-3.0); HEMATOCRIT 32.3 % (36.0-47.0); HEMOGLOBIN 10.3 g/dl (12.0-15.5); LYMPH % 13.2 % (24.0-44.0); MEAN CORPUSCULAR HEMOGLOBIN 30.6 pg (27.0-33.0); MEAN CORPUSCULAR HGB CONC 31.9 g/dl (32.0-36.5); MEAN CORPUSCULAR VOLUME 95.8 fl (80.0-96.0); MONO # 0.7 10^3/uL (0.0-0.8); MONO % 10.3 % (2.0-8.0); NEUTROPHILS # 5.5 10^3/uL (1.5-8.5); NEUTROPHILS % 75.6 % (36.0-66.0); PLATELET COUNT, AUTOMATED 240 10^3/uL (150-450); RED BLOOD COUNT 3.37 10^6/uL (4.00-5.40); WHITE BLOOD COUNT 7.2 10^3/uL (4.0-10.0)
[2020-10-28 06:57] LABS: CALCIUM LEVEL 8.2 MG/DL (8.8-10.2); CREATININE FOR GFR 1.27 MG/DL (0.55-1.30); GLOMERULAR FILTRATION RATE 43.6 (>39); POTASSIUM SERUM 4.4 MEQ/L (3.5-5.1)
--- NOTE | 2020-10-28 08:24 | REP ---
INDICATION: after chest tube placement. COMPARISON: Comparison is made with October 27, 2020 and October 26, 2020 prior radiographs. TECHNIQUE: Two views.. FINDINGS: Right-sided chest tube and PleurX catheters are noted in place unchanged. There is loculated right-sided hydropneumothorax. There is a little more pleural thickening along the lateral chest wall today. An air-fluid level is seen in the collection of fluid in the minor fissure similar to yesterday's radiograph. There is a small quantity of air at the right a pleural apex. The left lung remains clear. IMPRESSION: Loculated hydropneumothorax on the right.. <Electronically signed by Damien Braun > 10/28/20 0059
[2020-10-28] MEDS: DOCUSATE SODIUM 100MG CAPSULE PO SCH ×2 (08:58→21:09)
[2020-10-28] MEDS: PANTOPRAZOLE 40MG TAB (PROTONIX) PO SCH (08:58)
[2020-10-28] MEDS: VENLAFAXINE 37.5 MG TAB PO SCH ×2 (08:58→21:09)
[2020-10-28] MEDS: HumaLOG INSULIN (NovoLOG) PER UNIT SC SCH ×4 (08:58→21:11)
[2020-10-28] MEDS: MOM 30ML SUSPENSION UDC PO SCH (08:59)
[2020-10-28] MEDS ORDERED: ALTEPLASE 2MG/2ML VIAL XX ONE (09:20)
--- NOTE | 2020-10-28 11:30 | IPNPDOC ---
Text Note Date of Service The patient was seen on 10/28/20. NOTE SUBJECTIVE: -doing well, no acute complaints Physical Examination General: Alert, Cooperative, No Acute Distress. on 4L NC Eye Exam:: PERRLA, Conjunctiva & lids normal, EOMI, anicteric ENT: Atraumatic, Mucous membr. moist/pink, Pharynx Normal Neck: Supple, no oz JVD or palpable thyromegaly Chest: Symmetric chest rise, diminished breath sounds in R base, L side with good air movement, no wheezing or rhonchi. Has R sided chest tube in place, no leakage or surrounding erythema Heart: Rate Normal, Regular Rhythm, Normal S1, Normal S2, no m/r/g Abdomen: Normal bowel sounds, soft, has an umbilical hernia, obese, NTND Extremities: Bilateral LE 1+ pitting edema, WWP Labs and Imaging: reviewed. Assessment: 75 year old W with metastatic right breast cancer with mets to lungs and pleura, ckd stage 3, dm, htn, h/o DVT, HLD who was recently admitted for a suspected strangulated umbilical hernia and she had a noted larged R pleural effusion and [place] was consulted drained it by chest tube placement on 10/02 and removal on 10/05 with reaccumulation for which he placed a pleurX catheter on 10/08 before discharge home, who now returned with loculation of the pleural eff usion with ineffective drainage by pleurX now s/p chest tube replacement and tPA with thoracic surgery onboard. Right sided pleural effusion -Known malignant effusion from metastatic breast cancer for which she had a recent pleurX placement with Dr. Agrawal but pleurX stopped draining c/b loculation now s/p chest tube placement and tPA w/ breakup of septations and drainage. -chest tube in place and managed by Dr. Agrawal -Dr. Agrawal was fine with restarting her xarelto -daily CXR -f/u pleural fluid studies, low suspicion for infection -low suspicion for infection, no empiric abx DM -levemir 35u QHS per home script and lispro SSI -FS BG AC/HS -Hypoglycemic protocol. Depression -continue home venlafaxine HLD -continue home simvastatin H/o DVT -continue home xarelto VS,Fishbone, I+O VS, Fishbone, I+O Laboratory Tests 10/28/20 05:43 Vital Signs Date Time Temp Pulse Resp B/P (MAP) Pulse Ox O2 Delivery O2 Flow Rate FiO2 10/28/20 08:00 97.0 87 18 140/65 (90) 95 Room Air 2.0 I&O- Last 24 Hours up to 6 AM 10/28/20 06:00 Intake Total 2370 ml Output Total 2400 ml Balance -30 ml JOSHUA KNIGHT MD Oct 28, 2020 10:08
--- NOTE | 2020-10-28 12:43 | IPN ---
PROGRESS NOTE DATE: 10/28/2020 SUBJECTIVE: Ms. Santiago is sitting up comfortably eating breakfast. She is breathing well. Her chest x-ray still shows a loculation, which was shown yesterday on her CT scan. Please see below discussion. OBJECTIVE: VITAL SIGNS: Show a T-max of 98.4 with a heart rate that ranges between 87 to 93 in sinus rhythm. Respiratory rate of 16 to 18 without the use of accessory muscles who is 93% to 95% saturated on 2 liters nasal cannula and whose blood pressure is ranging between 159/72 to 140/65. INTAKE AND OUTPUT: Over the past 24 hours has been recorded as 2290 in and 2680 out for a negativity of 390 mL. She has put 20 mL out the chest tube. She has put out 2660 in urine output. There is no air leak. Her weight is pending today. RESPIRATORY: She has coarse rhonchi throughout both lungs more on the right than the left. Percussion note are full to the diaphragm. CARDIAC: Without murmurs, clicks, gallops, or rubs. I cannot feel her PMI. S1 and S2 are normal. ABDOMEN: Soft and nontender. Bowel sounds are positive. There is no hepatomegaly. No CVA tenderness. EXTREMITIES: Show 1+ pretibial edema on the left and none on the right. No calf tenderness. No differential swelling of the upper extremities. SKIN: Warm, dry, and perfused without cyanosis or mottling, including that of the nail beds and knees. NECK: Supple. There is no jugular venous distention. No subcutaneous emphysema. Trachea is midline. MOUTH: Shows the mucous membranes to be pink and moist. Lips and commisures are without lesions and no thrush. EYES: Show her pupils equal and reactive. Extraocular muscles are intact. Sclerae nonicteric. NEUROLOGIC: Shows II through XII intact. Normal gross motor, gross sensation intact. Gait is not tested. PSYCHIATRIC: Shows her to be awake, alert, and oriented x3 with appropriate mood and affect and conversational. LABORATORY DATA: Her white count today is 7.2 with hemoglobin and hematocrit of 10.3 and 32.3. Platelet count is 240,000 and stable. Differential shows 75% neutrophils, 13% lymphocytes, and 10% monocytes. There are no immature forms and no toxic granulations. Her electrolytes show a marginally low sodium of 134 with a potassium of 4.4. BUN and creatinine are 30 and 1.27 respectively. Glucose is 324 with a calcium of 8.2. IMAGING DATA: Her CT scan yesterday shows a loculation in the fissure, which is communicating with a posterior loculation through which the PleurX catheter runs. The remainder of her chest has been evacuated of fluid. I will therefore tPA the PleurX catheter. IMPRESSION: 1. Metastatic malignant pleural effusion loculated. 2. Metastatic breast cancer. 3. Hypertension. 4. Diabetes. 5. Remote history of deep vein thrombosis (DVT). 6. Hypertension. 7. Arthritis. 8. History of renal insufficiency resolved. PLAN AND DISCUSSION: She still has pleural fluid, which is loculated within the chest. The pleural fluid loculation looks to be in the major fissure, which is communicating with another posterior loculation. I am therefore going to undertake a tPA pleurolysis through the PleurX catheter. The posterior pleural collection can be seen on the lateral chest x-ray. It was confirmed on CT scanning yesterday. The sagittal reconstruction of the CT scan shows the fluid to be within the posterior major fissure.
--- NOTE | 2020-10-28 12:43 | RO ---
OPERATIVE NOTE DATE OF OPERATION: 10/28/2020 PREPROCEDURE DIAGNOSIS: Loculated pleural effusion. POSTPROCEDURE DIAGNOSIS: Loculated pleural effusion. PROCEDURE: TPA pleurolysis via PleurX catheter. SURGEON: Hamlet Agrawal M.D. [employer]: None. ANESTHESIA: DESCRIPTION OF PROCEDURE: The PleurX catheter was drained with almost no results. Therefore, 50 mL of normal saline containing 6 mg of tPA was instilled into the PleurX catheter. The patient was turned from [id number] to distribute the tPA. We will drain her in four hours via PleurX bottle. The patient tolerated the procedure well.
[2020-10-28] MEDS: NORCO, ANEXSIA 5/325MG TABLET (HYDROcodone/ACETAMINOPHEN) PO PRN (13:45)
--- NOTE | 2020-10-28 16:51 | RO ---
OPERATIVE NOTE DATE OF OPERATION: 10/26/2020 PREOPERATIVE DIAGNOSIS: Loculated pleural effusion. POSTOPERATIVE DIAGNOSIS: Loculated pleural effusion. PROCEDURE: TPA pleurolysis. SURGEON: Dr. Hamlet Agrawal DESCRIPTION OF PROCEDURE: Patient's chest tubes were disconnected from the Pleur-evac and clamped. They were prepped and draped in the usual sterile fashion, and 6 mg of tPA and 100 mL of normal saline was instilled into the chest tube. Patient was then turned from side to side to distribute the TPA and will be unclamped in 4 hours. Patient tolerated the procedure well. [facility]ENTER[facility]
[2020-10-28] MEDS: RIVAROXABAN 20 MG TAB (XARELTO) PO SCH (18:32)
[2020-10-28] MEDS: ASPIRIN 81MG ENTERIC TABLET PO SCH (21:09)
[2020-10-28] MEDS: MULTIVITAMINS/MINERALS THERAP 1 TAB PO SCH (21:09)
[2020-10-28] MEDS: SIMVASTATIN 20 MG TAB PO SCH (21:09)
[2020-10-28] MEDS: VITAMIN D 1,000 INTERNATIONAL UNITS TABLET PO SCH (21:10)
[2020-10-28] MEDS: LEVEMIR (INSULIN DETEMIR) 1 UNITS/0.01ML SC SCH (21:10)
[2020-10-29] VITALS: BP 127/58
[2020-10-29] MEDS: LEVALBUTEROL 1.25 MG/0.5 ML CONCENTRATE NEB NEB SCH ×4 (00:55→20:38)
[2020-10-29 04:00] VITALS: BP 96/66
[2020-10-29] MEDS: SLF 3 ML SYR IV SCH ×3 (05:08→20:56)
[2020-10-29 06:38] LABS: CALCIUM LEVEL 8.6 MG/DL (8.8-10.2); CREATININE FOR GFR 2.34 MG/DL (0.55-1.30); GLOMERULAR FILTRATION RATE 21.5 (>39); POTASSIUM SERUM 5.4 MEQ/L (3.5-5.1)
[2020-10-29 06:39] LABS: BASO % 0.3 % (0.0-1.0); EOS % 0.3 % (0.0-3.0); HEMATOCRIT 31.2 % (36.0-47.0); HEMOGLOBIN 9.9 g/dl (12.0-15.5); LYMPH % 6.8 % (24.0-44.0); MEAN CORPUSCULAR HEMOGLOBIN 30.2 pg (27.0-33.0); MEAN CORPUSCULAR HGB CONC 31.7 g/dl (32.0-36.5); MEAN CORPUSCULAR VOLUME 95.1 fl (80.0-96.0); MONO # 1.5 10^3/uL (0.0-0.8); MONO % 10.3 % (2.0-8.0); NEUTROPHILS % 81.6 % (36.0-66.0); PLATELET COUNT, AUTOMATED 276 10^3/uL (150-450); RED BLOOD COUNT 3.28 10^6/uL (4.00-5.40)
[2020-10-29 06:41] LABS: WHITE BLOOD COUNT 14.7 10^3/uL (4.0-10.0)
[2020-10-29 08:00] VITALS: BP 121/56
[2020-10-29] MEDS: ACETAMINOPHEN TAB 650MG DOSE (2X325MG) PO PRN (08:01)
--- NOTE | 2020-10-29 08:20 | REP ---
INDICATION: after chest tube placement. COMPARISON: Comparison chest x-ray October 28, 2020. TECHNIQUE: Two views.. FINDINGS: The previously noted PleurX and the larger caliber right chest tube are again noted in the right pleural space. Loculated hydropneumothorax changes persist. There is a little less pleural thickening visible today. Air-fluid level is seen in fissural fluid on the right. There is a small air collection at the apex on the right unchanged. The left lung remains clear. IMPRESSION: Some improvement in pleural thickening and fluid on the right.. <Electronically signed by Damien Braun > 10/29/20 0819
[2020-10-29] MEDS: PANTOPRAZOLE 40MG TAB (PROTONIX) PO SCH (08:58)
[2020-10-29] MEDS: HumaLOG INSULIN (NovoLOG) PER UNIT SC SCH ×4 (08:58→20:55)
[2020-10-29] MEDS: VENLAFAXINE 37.5 MG TAB PO SCH ×2 (08:58→20:56)
[2020-10-29] MEDS: DOCUSATE SODIUM 100MG CAPSULE PO SCH ×2 (08:59→20:56)
[2020-10-29] MEDS: MOM 30ML SUSPENSION UDC PO SCH (08:59)
[2020-10-29 12:00] VITALS: BP 119/55
[2020-10-29 17:21] LABS: CREATININE FOR GFR 2.5 MG/DL (0.55-1.30); GLOMERULAR FILTRATION RATE 19.9 (>39); POTASSIUM SERUM 5.8 MEQ/L (3.5-5.1)
[2020-10-29] MEDS: RIVAROXABAN 20 MG TAB (XARELTO) PO SCH (17:31)
[2020-10-29 20:00] VITALS: BP 132/59
[2020-10-29] MEDS: LEVEMIR (INSULIN DETEMIR) 1 UNITS/0.01ML SC SCH (20:55)
[2020-10-29] MEDS: ASPIRIN 81MG ENTERIC TABLET PO SCH (20:56)
[2020-10-29] MEDS: SIMVASTATIN 20 MG TAB PO SCH (20:56)
[2020-10-29] MEDS: MULTIVITAMINS/MINERALS THERAP 1 TAB PO SCH (20:56)
[2020-10-29] MEDS: VITAMIN D 1,000 INTERNATIONAL UNITS TABLET PO SCH (20:56)
[2020-10-30] VITALS (10 sets, daily range): BP systolic 117–153; BP diastolic 56–90
[2020-10-30] MEDS: LEVALBUTEROL 1.25 MG/0.5 ML CONCENTRATE NEB NEB SCH ×4 (01:41→20:32)
[2020-10-30] MEDS: SLF 3 ML SYR IV SCH ×3 (04:38→20:49)
[2020-10-30 05:52] LABS: BASO % 0.2 % (0.0-1.0); EOS % 0.1 % (0.0-3.0); HEMATOCRIT 27.6 % (36.0-47.0); HEMOGLOBIN 8.8 g/dl (12.0-15.5); LYMPH # 0.8 10^3/uL (1.5-5.0); LYMPH % 7.6 % (24.0-44.0); MEAN CORPUSCULAR HEMOGLOBIN 29.9 pg (27.0-33.0); MEAN CORPUSCULAR HGB CONC 31.9 g/dl (32.0-36.5); MEAN CORPUSCULAR VOLUME 93.9 fl (80.0-96.0); MONO # 1.1 10^3/uL (0.0-0.8); MONO % 10.3 % (2.0-8.0); NEUTROPHILS # 8.7 10^3/uL (1.5-8.5); NEUTROPHILS % 81.1 % (36.0-66.0); PLATELET COUNT, AUTOMATED 290 10^3/uL (150-450); RED BLOOD COUNT 2.94 10^6/uL (4.00-5.40); WHITE BLOOD COUNT 10.7 10^3/uL (4.0-10.0)
[2020-10-30 06:16] LABS: CALCIUM LEVEL 8.4 MG/DL (8.8-10.2); CREATININE FOR GFR 1.86 MG/DL (0.55-1.30); POTASSIUM SERUM 5.1 MEQ/L (3.5-5.1)
--- NOTE | 2020-10-30 08:24 | REP ---
INDICATION: after chest tube placement COMPARISON: 10/29/2020 TECHNIQUE: PA and lateral. FINDINGS: Two chest tubes are identified overlying the right lower lung zone in relatively stable position. Pleuroparenchymal changes involving the right hemithorax include partially loculated hydropneumothorax and lower lobe airspace disease essentially unchanged from prior examination. Visualized portions of the mediastinum and cardiac silhouette are within normal limits. Left hemithorax is well aerated and clear. IMPRESSION: No significant change from prior examination. Right-sided pleuroparenchymal changes including partially loculated hydropneumothorax and lower lobe opacities again noted. <Electronically signed by Rodney Panda > 10/30/20 [id number]
[2020-10-30] MEDS: MOM 30ML SUSPENSION UDC PO SCH (08:29)
[2020-10-30] MEDS: DOCUSATE SODIUM 100MG CAPSULE PO SCH ×2 (08:29→20:48)
[2020-10-30] MEDS: HumaLOG INSULIN (NovoLOG) PER UNIT SC SCH ×4 (08:39→20:49)
[2020-10-30] MEDS: PANTOPRAZOLE 40MG TAB (PROTONIX) PO SCH (08:39)
[2020-10-30] MEDS: VENLAFAXINE 37.5 MG TAB PO SCH ×2 (08:39→20:48)
[2020-10-30] MEDS ORDERED: FUROSEMIDE 40MG/4ML VIAL (J1940) IV ONE ×2 (09:30→15:00)
--- NOTE | 2020-10-30 09:56 | IPN ---
PROGRESS NOTE DATE: 10/29/2020 SUBJECTIVE: Ms. Santiago underwent a TPA pleurolysis through the PleurX catheter yesterday. After a dual time of four hours, she was drained of 800 ml from the PleurX catheter and 770 ml from her chest tube. Today, her x-ray is much improved. OBJECTIVE: Her vital signs show a T-max of 99.1 with a heart rate that ranges between 82 and 92 is sinus rhythm, respiratory rate of 16 to 19 without the use of accessory muscles, it was 91 to 96% saturated on room air. Has blood pressures ranging between 127/58 to 96/66. Her intake and output for the past 24 hours has been recorded as 1640 in and 2400 out for a negativity of 760 ml. She has put out a total of 1570 ml from her chest and 830 ml in urine output. She weighs 78.7 kg today, it was 78.4 kg yesterday. PHYSICAL EXAMINATION: She still has inspiratory rales and coarse rhonchi throughout the right lung and at the base of the left lung. Percussion note is full to the diaphragm. Cardiac examination: Without murmurs, clicks, gallops or rubs. I cannot feel her PMI. S1, S2 are normal. Abdomen: Soft, nontender. Bowel sounds are positive. There is no hepatomegaly. No costovertebral angle (CVA) tenderness. Extremities show maybe trace pretibial edema today, much improved over yesterday. There is no calf tenderness. No differential swelling of the upper extremities. Skin: Warm, dry and profuse without cyanosis or mottling including nail beds and knees. Neck is supple. There is no jugular venous distention (JVD). No subcutaneous emphysema. Trachea is midline. Mouth shows mucous membranes to be pink and moist. Lips and commissures without thrush. Eyes show his pupils to be equal and reactive, extraocular muscles intact, sclerae nonicteric. Neurological shows II-XII intact, normal gross motor, gross sensation intact, gait is not tested. Psychiatric shows to be awake, alert, oriented times 3 with appropriate mood and affect and conversational. LABORATORY DATA: White count today is up to 14.7, 7.2 yesterday. Hemoglobin and hematocrit were 9.9 and 31.2, essentially unchanged from yesterday with a platelet count of 276. Differential shows 81% neutrophils, 6% lymphocytes and 10% monocytes. There are no immature forms or toxic granulations. Her electrolytes show a sodium of 128 with a potassium of 5.4. Her BUN and creatinine have markedly changed to 48 and 2.34 from 30 and 1.27 yesterday. I did diurese her with 40 mg of Lasix yesterday. Glucose is 339 with a calcium of 8.6. Her chest x-ray today is markedly improved. The loculation is all but gone, although there is a small air fluid level in the loculation. The posterior collection is resolved. Chest tubes are in good place. I see no other infiltrates. IMPRESSION: 1. Metastatic malignant pleural effusion, loculated now almost resolved. 2. Metastatic breast cancer. 3. Hypertension. 4. Diabetes. 5. Remote history of deep venous thrombosis (DVT). 6. Arthritis. 7. History of renal insufficiency. 8. Renal insufficiency recurrent, hopefully secondary to diuresis. PLAN AND DISCUSSION: I will continue her chest tube on suction. I will not diurese her today. Will encourage by mouth intake. The renal insufficiency will probably resolve with rehydration.
--- NOTE | 2020-10-30 12:32 | IPNPDOC ---
Text Note Date of Service The patient was seen on 10/30/20. NOTE Subjective: Patient is a 75-year-old female with a PMHx of Metastatic right breast cancer with mets to lungs and pleura, CKD3, HTN, IDDM2, DLP, Hx of DVT, who was recently admitted for a suspected strangulated umbilical hernia and she had a noted large R pleural effusion and [place] was consulted drained it by chest tube placement on 10/02 and removal on 10/05 with reaccumulation for which he placed a pleurX catheter on 10/08 before discharge home. She has now returned with loculation of the pleural effusion with ineffective drainage by pleurX; now s/p chest tube replacement and tPA with thoracic surgery onboard. Patient was seen and examined at the bedside. Patient reports that her breathing is doing relatively better.. She was seen ambulating in the room to the bathroom and back to bed without any supplemental oxygen. She denies any chest pain but does report that she gets winded. Denies any significant cough, nausea, vomiting, abdominal pain or diarrhea. Patient reports that her lower extremity still reveals some swelling. Objective: Vitals (See below) General: Lying in bed, no acute distress, comfortable, AAOx3 HEENT: NC, AT CVS: RRR, +S1S2 Lungs: Fair air entry b/l, R sided chest tube, no appreciable wheezing / rhonchi Abdomen: Soft, ND, NT Extremities: 2+ pitting edema bilaterally, - Calf tenderness Assessment and Plan: Recurrent right sided pleural effusion - Patient has a history of known malignant pleural effusions from metastatic breast cancer - Recently has had Pleurx catheter placement; was removed 2/2 loculation - New chest tube placed by Dr. Agrawal - CTS on consultation JUAN - Patient has an elevated Cr - Baseline Cr of 1.1-1.2 - Nephrology called on consultation; appreciate their input Stage IV Breast CA - Infiltrating ductal carcinoma (Dx: 2002) - Patient follows with Dr. Sterling of Oncology; will have outpatient follow up IDDM2 - c/w ISS and Levemir Depression - c/w venlafaxine DLP - c/w simvastatin Hx of DVT - c/w full anticoagulation with Xarelto DVT prophylaxis - c/w full anticoagulation with Xarelto Disposition: - Awaiting clinical improvement VS,Jayline, I+O VS, Fishbone, I+O Laboratory Tests 10/29/20 16:42 10/30/20 05:40 Vital Signs Date Time Temp Pulse Resp B/P (MAP) Pulse Ox O2 Delivery O2 Flow Rate FiO2 10/30/20 11:53 96.8 93 26 127/60 (82) 91 Room Air 10/28/20 14:15 2.0 I&O- Last 24 Hours up to 6 AM 10/30/20 06:00 Intake Total 1040 ml Output Total 865 ml Balance 175 ml EMMA LEON MD Oct 30, 2020 12:32
--- NOTE | 2020-10-30 13:38 | CR ---
NEPHROLOGY CONSULTATION DATE: 10/30/2020 REQUESTING PHYSICIAN: Dr. Idalmis Preston CONSULTING PHYSICIAN: Dr. Jerry Nunez REASON FOR CONSULTATION: Acute renal failure superimposed on chronic kidney disease. HISTORY OF PRESENT ILLNESS: Mrs. Santiago is a 75-year-old female with metastatic right breast cancer with metastasis to the lungs and pleura. She also has stage 3 chronic kidney disease, diabetes, hypertension, history of DVT and hyperlipidemia. She presented with increased shortness of breath and dysfunction of PleurX catheter. She has a right sided chest tube placed due to large pleural effusion. She was diuresed and kidney function has worsened. Due to it, a nephrology consultation was requested. PAST MEDICAL AND SURGICAL HISTORY: The patient's past medical and surgical history is significant for: 1. 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 She is on chemotherapy. 2. Status post lumpectomy right breast, chemo, radiation and hormone therapy. 3. Stage 3 chronic kidney disease. 4. Diabetes. 5. History of DVT. 6. History of hyperlipidemia. 7. Depression. 8. Hypertension. 9. History of asthma. PAST SURGICAL HISTORY: The patient's past surgical history is significant for: 1. Right breast lumpectomy. 2. Tubal ligation. 3. Bilateral cataract surgery. 4. Chest tube and PleurX catheter placement. FAMILY HISTORY: Father with liver disease. Mother with GI bleed and complications and one daughter has M.S. PERSONAL AND SOCIAL HISTORY: The patient denies any alcohol, drugs or tobacco use. REVIEW OF SYSTEMS: Constitutional: Denies any fever or chills. Ears, nose and throat are unremarkable. Cardiovascular system is significant for shortness of breath and large pleural effusion. Respiratory system is significant for pulmonary metastatic disease with pleural mass and pleural effusion. GI system is negative for vomiting or diarrhea. Genitourinary system is negative for dysuria or hematuria. Musculoskeletal system is significant for bilateral lower extremity edema and prior history of DVT. Psychosocial system is negative for depression or anxiety. Skin is negative for rash or ulcers. MEDICATIONS: Her home medications include: 1. Aspirin 81 mg daily. 2. Vitamin D 1,000 units daily. 3. Insulin Basaglar 32 units at bedtime. 4. Multivitamin one tablet daily. 5. Victoza 1.2 mg at bedtime. 6. Xarelto 20 mg at bedtime. 7. Simvastatin 20 mg daily. 8. Venlafaxine 75 mg twice daily. ALLERGIES: She has allergy to: 1. Exenatide. 2. Adhesive tape. PHYSICAL EXAMINATION: GENERAL APPEARANCE: This is an elderly lady laying in the bed without any acute distress. She has a right sided chest tube in place. VITAL SIGNS: Temperature 96.8 degrees Fahrenheit, heart rate 92 per minute, respiratory rate 26 per minute, blood pressure 127/60 mm of mercury and oxygen saturation 91%. HEENT: Her head is atraumatic. NECK: Supple and JVD does not seem to be abnormally elevated. LUNGS: Good air entry on the left side and right side she has crackles and diminished breath sounds. She has a chest tube in the right chest. ABDOMEN: Soft and bowel sounds are present. EXTREMITIES: Without any cyanosis or clubbing. Lower extremity edema seems to be chronic and at least 2+. NEUROLOGICAL: She has no focal deficits. LABORATORY DATA: On admission white blood cell count was 7.2, hemoglobin 12 and hematocrit 37.6. Today her hemoglobin is 8.8 and hematocrit 27.6. Sodium is 125 today while it was 137 just on October 27. BUN was 28 and creatinine 1.1 on October 27 and since then has gradually increased. Creatinine was 1.27 on October 28 and 2.34 on the . Later on the it was 2.5. Today her creatinine is 1.86, however her sodium is 125 and potassium is 5.1. Yesterday her potassium was 5.8. Glucose is 257 and calcium is 8.4. IMAGING DATA: Chest CT scan done on October 27 without contrast reported as loculated right sided hydropneumothorax and drainage of pleural effusion. Chest x-ray done today is reported as no significant change from prior exam. Right pleural parenchymal changes including partially loculated hydropneumothorax and lower lobe opacities are noted. PROBLEMS: 1. Acute kidney injury superimposed on chronic kidney disease her baseline kidney disease is only mild. Worsening kidney function is probably related to ongoing issues with diuresis and possible pneumonia. At this point she still has significant peripheral edema in her lower extremities. We will try to diurese her with the use of IV albumin and Lasix and see how she does. 2. Hyponatremia she has worsening hyponatremia over the last few days with significant hypervolemia and likely to improve only with diuresis. I do not feel that at this point we can even consider giving her any sodium as she is already significantly edematous. 3. Lower extremity edema she has a prior history of DVT that could be contributing to her lower extremity edema along with low albumin. It remains to be seen how she responds to IV albumin and Lasix. I am also going to get a CAT scan of abdomen and pelvis to rule out any possibility of retroperitoneal problems. Thank you for involving me in the care of Mrs. Santiago. I will follow her along with you.
--- NOTE | 2020-10-30 13:45 | REP ---
INDICATION: ARF. LE edema COMPARISON: Comparison CT study October 02, 2020.. TECHNIQUE: Helical scanning is acquired in 4 mm axial images were reformatted. Coronal and sagittal MPR images were generated and reviewed. FINDINGS: Digital preliminary highway traffic control technician radiograph demonstrates an unremarkable bowel gas pattern. There are moderate pleuroparenchymal changes and some pleural fluid in the right base. A PleurX catheter is noted in the right pleural space and the amount of pleural fluid is decreased in the interval since the October 02, 2020 study. There is however still peribronchial thickening, discoid atelectasis, and interstitial septal thickening. There is a 1.9 cm low-density nodule in the dome of the liver in the right lobe. This was not present in July of 2018 and is compatible with a metastasis. No other focal liver lesion is seen. The spleen is unremarkable except for granulomatous calcification. Normal adrenal glands are observed. No abnormality is noted in the pancreas. The gallbladder is small and contracted but unremarkable. There is no evidence hydronephrosis on either side. No renal mass or calculus is seen. Vascular calcification is observed in a normal caliber aorta. A periumbilical ventral hernia is seen containing a abdominal fat similar to prior study. There is no evidence of ascites. No uterine or adnexal abnormality is appreciated. Small and large intestinal bowel loops are unremarkable in the abdomen and pelvis. No bony destructive lesion is seen. Advanced osteoarthritis of the hips is noted. IMPRESSION: Ventral hernia trans Lou abdominal fat again seen unchanged. PleurX catheter on the right. 1.9 cm low-density lesion in the liver compatible with metastatic focus. No hydronephrosis or renal calculus disease seen. No acute abdominal or pelvic abnormality. <Electronically signed by Damien Braun > 10/30/20 [id number]
--- NOTE | 2020-10-30 16:19 | IPN ---
PROGRESS NOTE DATE: 10/30/2020 Ms. Santiago is breathing well today. Pain is being fairly well controlled at the chest tube insertion site. She has drained minimally from the chest tube after her tPA pleurolysis 2 days ago. We will therefore remove it. Her vital signs show a maximum temperature of 97.9 with a heart rate that ranges between 64-102 in a sinus rhythm, respiratory rate of 16-26 without the use of accessory muscles, who is 91%-95% saturated on room air and whose blood pressure is ranging between 153/68 to 117/56. Her intake and output for the past 24 hours has been recorded as 1440 in and 1135 out, for a positivity of 300 mL. She has put out 100 mL in urine and 135 mL from the chest tube, and there is no air leak. She is recorded as weighing 88.4 kg, which is no doubt spurious, as it is so far off from her other weights around 78 kg. PHYSICAL EXAMINATION: She has bilateral rales and rhonchi, more on the right than the left. Percussion note is full to the diaphragm on either side, however. Her heart shows a regular rate and rhythm without murmurs, clicks, gallops, or rubs. I cannot feel her point of maximal impulse (PMI). S1 and S2 are normal. Abdomen is soft and nontender. Bowel sounds are positive. I cannot appreciate hepatomegaly through her obesity. There is no costovertebral angle (CVA) tenderness. Extremities show 2+ to 3+ pretibial edema. No calf tenderness, no differential swelling of the upper extremities. Skin is warm, dry, and perfused without cyanosis or mottling, including that of the nailbeds and knees. Neck is supple. There is no jugular venous distention. No subcutaneous emphysema. Trachea is midline. Mouth shows the mucous membranes to be pink and moist. Lips and commissures without lesions. No thrush. Eyes show her pupils to be equal and reactive. Extraocular motion intact. Sclerae anicteric. Neurologic shows II-XII intact. Normal gross motor, gross sensation intact. Gait is not tested. Psychiatric shows her to be awake, alert, and oriented times three with appropriate mood and affect and conversational. Her white count today is 10.7 with a hemoglobin and hematocrit of 8.8 and 27.6, down from 9.9 and 31.2. Platelet count is 290. It is stable. Differential shows 81% neutrophils, 7% lymphocytes, 10% monocytes. There are no immature forms or toxic granulations. Her electrolytes now show a sodium which is decreasing now down to 125. On October 27 it was 137. Potassium is 5.1 with a BUN and creatinine of 52 and 1.96, down from 52 and 2.50 yesterday. Glucose is 257 with a calcium 8.4. Her intake and output do not match her gain in weight, nor do they match the hemoglobin and hematocrit change. Her chest x-ray today is essentially unchanged from yesterday with a small air/fluid level in the lateral right hemithorax. The posterior collection on lateral film is resolved. Dr. Nunez ordered an abdominal scan of her today. I am just review it now. She has residual pleural effusion in the tract of the PleurX catheter. There is lobular thickening on either compression nor infiltration. I think I see coalescing masses in the lung parenchyma. IMPRESSION: 1. Metastatic malignant pleural effusion, minimally loculated now and almost resolved. 2. Metastatic breast cancer. 3. Hypertension. 4. Diabetes. 5. Remote history of deep venous thrombosis (DVT). 6. Arthritis. 7. History of renal insufficiency with acute renal injury, now improving. 8. Hyponatremia. 9. Anemia. PLAN AND DISCUSSION: As far as her chest tube is concerned, I will remove it today. We will start draining her PleurX catheter tomorrow. Her intake and output does not explain her hemoglobin and hematocrit drop, nor does it explain her hyponatremia change. I repine that her weight is spurious, as it is 10 kg over her baseline weight overnight. I cannot explain this by volume imbalance. Dr. Nunez of nephrology has been consulted to manage her electrolytes and her renal insufficiency, which looks to be improving. She is being treated with both albumin and diuresis.
[2020-10-30] MEDS: RIVAROXABAN 20 MG TAB (XARELTO) PO SCH (17:00)
[2020-10-30] MEDS: LEVEMIR (INSULIN DETEMIR) 1 UNITS/0.01ML SC SCH (20:48)
[2020-10-30] MEDS: ASPIRIN 81MG ENTERIC TABLET PO SCH (20:48)
[2020-10-30] MEDS: VITAMIN D 1,000 INTERNATIONAL UNITS TABLET PO SCH (20:48)
[2020-10-30] MEDS: MULTIVITAMINS/MINERALS THERAP 1 TAB PO SCH (20:48)
[2020-10-30] MEDS: SIMVASTATIN 20 MG TAB PO SCH (20:49)
[2020-10-31] VITALS (11 sets, daily range): BP systolic 112–162; BP diastolic 56–68
[2020-10-31] MEDS: LEVALBUTEROL 1.25 MG/0.5 ML CONCENTRATE NEB NEB SCH ×4 (02:20→20:31)
[2020-10-31] MEDS: SLF 3 ML SYR IV SCH ×3 (05:51→20:23)
[2020-10-31 06:39] LABS: BASO % 0.2 % (0.0-1.0); EOS % 0.1 % (0.0-3.0); HEMOGLOBIN 8.1 g/dl (12.0-15.5); LYMPH # 0.8 10^3/uL (1.5-5.0); LYMPH % 8.8 % (24.0-44.0); MEAN CORPUSCULAR HEMOGLOBIN 29.7 pg (27.0-33.0); MEAN CORPUSCULAR HGB CONC 32.4 g/dl (32.0-36.5); MEAN CORPUSCULAR VOLUME 91.6 fl (80.0-96.0); MONO # 0.9 10^3/uL (0.0-0.8); MONO % 10.8 % (2.0-8.0); NEUTROPHILS # 6.9 10^3/uL (1.5-8.5); NEUTROPHILS % 79.3 % (36.0-66.0); PLATELET COUNT, AUTOMATED 285 10^3/uL (150-450); RED BLOOD COUNT 2.73 10^6/uL (4.00-5.40); WHITE BLOOD COUNT 8.7 10^3/uL (4.0-10.0)
[2020-10-31 07:07] LABS: CALCIUM LEVEL 8.1 MG/DL (8.8-10.2); CREATININE FOR GFR 1.53 MG/DL (0.55-1.30); GLOMERULAR FILTRATION RATE 35.1 (>39); POTASSIUM SERUM 4.4 MEQ/L (3.5-5.1)
[2020-10-31] MEDS ORDERED: FUROSEMIDE 40MG/4ML VIAL (J1940) IV ONE ×2 (08:15→13:00)
[2020-10-31] MEDS: VENLAFAXINE 37.5 MG TAB PO SCH ×2 (08:27→20:24)
[2020-10-31] MEDS: DOCUSATE SODIUM 100MG CAPSULE PO SCH ×3 (08:27→20:27)
[2020-10-31] MEDS: PANTOPRAZOLE 40MG TAB (PROTONIX) PO SCH (08:27)
[2020-10-31] MEDS: HumaLOG INSULIN (NovoLOG) PER UNIT SC SCH ×4 (08:28→20:43)
[2020-10-31] MEDS: MOM 30ML SUSPENSION UDC PO SCH (08:34)
--- NOTE | 2020-10-31 10:04 | REP ---
INDICATION: after chest tube placement COMPARISON: 10/30/2020 TECHNIQUE: PA and lateral. FINDINGS: Chest tube at the right base is in stable position. Right mid to lower lobe pleuroparenchymal changes again noted and relatively similar to prior examination. Left hemithorax is well aerated and clear. No cardiomegaly. Skeletal structures intact. IMPRESSION: No significant change from prior examination. <Electronically signed by Rodney Panda > 10/31/20 1000
--- NOTE | 2020-10-31 10:08 | REP ---
INDICATION: r/o dvt COMPARISON: None. TECHNIQUE: Sanchez scale and color Doppler evaluation bilateral lower extremity using linear high frequency transducer. FINDINGS: Ultrasound examination of the right and left lower extremity deep venous structures from the common femoral vein to the popliteal vein demonstrates normal compressibility flow and wave patterns in response to respiration and augmentation. There is no evidence for deep venous thrombosis. IMPRESSION: No evidence for deep venous thrombosis. <Electronically signed by Rodney Panda > 10/31/20 1009
--- NOTE | 2020-10-31 11:42 | IPN ---
PROGRESS NOTE DATE: 10/31/2020 Mrs. Santiago is doing fairly well this morning. She is not complaining of shortness of breath. Her PleurX catheter has not get been drained today. She still has considerable pretibial edema. Her vital signs show a maximum temperature of 97.7 with a heart rate that ranges between 88-86 in a sinus rhythm, respiratory rate 18-20 without the use of accessory muscles, who is 94%-97% saturated on room air and whose blood pressure is ranging between 137/63 to 112/56. Her intake and output for the past 24 hours has been recorded as 2160 in and 2330 out, for a negative of 170 mL. She weighs 80.3 kg today compared to 78.7 kg 2 days ago. PHYSICAL EXAMINATION: She has coarse rhonchi and rales, mostly during inspiration, on both sides but much greater on the right than the left. Percussion note is full to the diaphragm. Cardiac exam is without murmurs, clicks, gallops, or rubs. I cannot feel her point of maximal impulse (PMI). S1 and S2 are normal. Abdomen is soft and nontender but tympanitic and distended. Bowel sounds are positive. Extremities show 3-4+ pretibial edema. There is no calf tenderness, no differential swelling of the upper extremities. Skin is warm, dry, and perfused without cyanosis or mottling, including that of the nailbeds and knees. Neck is supple. There is no jugular venous distention. No subcutaneous emphysema. Trachea is midline. Mouth shows the mucous membranes to be pink and moist. Lips and commissures without lesions. No thrush. Eyes show her pupils to be equal and reactive. Extraocular motion intact. Sclerae anicteric. Neurologic shows II-XII intact. Normal gross motor, gross sensation intact. Gait is not tested. Psychiatric shows her to be awake, alert, and oriented times three with appropriate mood and affect and conversational. Her white count today is 8.7 with a hemoglobin and hematocrit of 8.1 and 25.0, still continuing to fall. Platelet count is 285. Differential shows 39% neutrophils, 8% lymphocytes, and 10% monocytes. Her hemoglobin and hematocrit decrease cannot be explained by intake and output imbalance. Her electrolytes show a sodium of 130 with a BUN and creatinine of 53 and 1.53, improved from a creatinine yesterday of 1.86 and 2.50 the day before. Calcium is 8.1 with a glucose of 306. She has been given albumin, although there is no albumin level ordered for today. Her chest x-ray shows the lung fully expanded to the chest wall. There is an opacity developing again in the right lower hemithorax. On the lateral film there is some fluid in the inferior portion of the right hemithorax. There is still a small air-fluid level in the fissural loculation. IMPRESSION: 1. Metastatic malignant pleural effusion, minimally loculated and almost resolved. 2. Metastatic breast cancer. 3. Hypertension. 4. Diabetes. 5. History of deep venous thrombosis. 6. Arthritis. 7. Acute renal injury on top of chronic renal disease, improving. 8. Hyponatremia, improving. 9. Anemia, getting worse. PLAN AND DISCUSSION: As noted yesterday, I am not at all convinced that her anemia is secondary to hemodilution. I was expecting the medical service to order stool for occult blood, and that has not been done, and I will therefore order it today. I will have her PleurX catheter drained today to make sure that it is actually working. Nephrology is addressing her renal insufficiency.
--- NOTE | 2020-10-31 12:27 | IPNPDOC ---
Text Note Date of Service The patient was seen on 10/31/20. NOTE Subjective: Patient is a 75-year-old female with a PMHx of Metastatic right breast cancer with mets to lungs and pleura, CKD3, HTN, IDDM2, DLP, Hx of DVT, who was recently admitted for a suspected strangulated umbilical hernia and she had a noted large R pleural effusion and [place] was consulted drained it by chest tube placement on 10/02 and removal on 10/05 with reaccumulation for which he placed a pleurX catheter on 10/08 before discharge home. She has now returned with loculation of the pleural effusion with ineffective drainage by pleurX; now s/p chest tube replacement and tPA with thoracic surgery onboard. Patient was seen and examined at the bedside. Patient is sitting up in bed, appears to be comfortable. She denies any nausea or vomiting. Reports that her breathing is doing better. She denies any abdominal pain or diarrhea. Reports t hat her lower extremity swelling has had a slight improvement. Objective: Vitals (See below) General: Lying in bed, appears to be comfortable, not in any acute distress HEENT: NC, AT CVS: +S1S2 Lungs: There is fair air entry bilaterally without any auscultated crackles, wh eezing or rhonchi Abdomen: Soft, nondistended, RUQ tenderness Extremities: Lower extremities don't reveal 1+ pitting edema Assessment and Plan: Recurrent right sided pleural effusion - Patient has a history of known malignant pleural effusions from metastatic breast cancer - Recently has had Pleurx catheter placement; was removed / loculation - CT Chest 10/27: Loculated right-sided hydropneumothorax status post Pleurx and basilar chest tube placement. Significant improvement noted since the October 24, 2020 study. - New chest tube placed by Dr. Agrawal - CTS on consultation; appreciate their input JUAN - Evidence of fluid overload - Patient has an elevated Cr; improving - Baseline Cr of 1.1-1.2 - Nephrology called on consultation; appreciate their input Stage IV Breast CA - Infiltrating ductal carcinoma (Dx: 2002) - CT abdomen / pelvis 10/30: Ventral hernia trans Lou abdominal fat again seen unchanged. PleurX catheter on the right. 1.9 cm low-density lesion in the liver compatible with metastatic focus. No hydronephrosis or renal calculus disease seen. No acute abdominal or pelvic abnormality. - Patient follows with Dr. Sterling of Oncology; will have outpatient follow up IDDM2 - c/w ISS and Levemir Depression - c/w venlafaxine DLP - c/w Simvastatin Hx of DVT - Vascular US 10/31: No evidence for deep venous thrombosis. - c/w full anticoagulation with Xarelto DVT prophylaxis - c/w full anticoagulation with Xarelto Disposition: - Awaiting clinical improvement VS,Rylie, I+O VSRylie I+O Laboratory Tests 10/31/20 06:11 Vital Signs Date Time Temp Pulse Resp B/P (MAP) Pulse Ox O2 Delivery O2 Flow Rate FiO2 10/31/20 12:05 96.8 93 26 127/60 (82) 91 Room Air 10/28/20 14:15 2.0 I&O- Last 24 Hours up to 6 AM 10/31/20 06:00 Intake Total 2520.0 ml Output Total 2700 ml Balance -180.0 ml EMMA LEON MD Oct 31, 2020 12:27
--- NOTE | 2020-10-31 13:37 | IPN ---
PROGRESS NOTE DATE: 10/31/2020 SUBJECTIVE: Mrs. Santiago is seen this morning on her bedside. Yesterday, we diuresed her along with IV albumin and intravenous Lasix and she did very well with total urine output of 2330 ml. She is feeling about the same today and not requiring any oxygen so far. She still has lower extremity edema. Yesterday, CT scan of abdomen and pelvis was done which revealed a ventral hernia and PleurX catheter on the right, a metastatic focus in her liver but no hydronephrosis or kidney stones. OBJECTIVE: VITAL SIGNS: Temperature is 96.2 degrees Fahrenheit, heart rate is 96 per minute and respiratory rate 20 per minute. Blood pressure 112/56 mmHg and oxygen 94% on room air. INTAKE AND OUTPUT: Her intake and output yesterday shows a total intake of 2160 and output 2330 ml. She weighed 80.3 kg today. HEAD AND NECK: Head is atraumatic. Neck is supple and without JVD or thyroid enlargement. HEART: Heart sounds are regular. LUNGS: Slightly diminished breath sounds. She has a few creps on the right side. ABDOMEN: Soft and nontender. Bowel sounds are normal. EXTREMITIES: Without any cyanosis or clubbing. Lower extremity edema is at least 2+. LABORATORY DATA: Today's labs shows her WBC count of 8.7, hemoglobin 8.1, hematocrit 25.0. Sodium 130, potassium 4.4, CO2 26, BUN 53 and creatinine 1.53. Glucose 306. Calcium 8.1. PROBLEMS: 1. Acute kidney injury superimposed on chronic kidney disease. Kidney function is improving now and we will recheck her renal profile tomorrow. 2. Hyponatremia. Sodium level was 125 yesterday and improved up to 130 today. We will continue to diurese her. Electrolytes should be rechecked tomorrow. 3. Hypervolemia and generalized edema. Volume status only slightly improved. Will get a lower extremity Doppler ultrasound to rule out DVT in view of her prior history of DVT. Will continue to diurese her with IV Lasix and will also give her IV albumin. 4. Anemia, her anemia is slightly worse today but no active bleeding was noted. CBC will be checked again tomorrow. Will hold off on transfusion at this point.
[2020-10-31] MEDS: ACETAMINOPHEN TAB 650MG DOSE (2X325MG) PO PRN (15:25)
[2020-10-31] MEDS: RIVAROXABAN 20 MG TAB (XARELTO) PO SCH (17:58)
[2020-10-31] MEDS: SIMVASTATIN 20 MG TAB PO SCH (20:24)
[2020-10-31] MEDS: VITAMIN D 1,000 INTERNATIONAL UNITS TABLET PO SCH (20:24)
[2020-10-31] MEDS: MULTIVITAMINS/MINERALS THERAP 1 TAB PO SCH (20:24)
[2020-10-31] MEDS: ASPIRIN 81MG ENTERIC TABLET PO SCH (20:24)
[2020-10-31] MEDS: LEVEMIR (INSULIN DETEMIR) 1 UNITS/0.01ML SC SCH (20:43)
[2020-11-01] VITALS (18 sets, daily range): BP systolic 126–164; BP diastolic 58–72
[2020-11-01] MEDS: LEVALBUTEROL 1.25 MG/0.5 ML CONCENTRATE NEB NEB SCH ×4 (02:56→20:47)
[2020-11-01] MEDS: SLF 3 ML SYR IV SCH ×3 (05:15→20:22)
[2020-11-01 07:07] LABS: BASO % 0.1 % (0.0-1.0); EOS % 0.1 % (0.0-3.0); HEMATOCRIT 24.7 % (36.0-47.0); HEMOGLOBIN 7.9 g/dl (12.0-15.5); LYMPH # 0.9 10^3/uL (1.5-5.0); MEAN CORPUSCULAR HEMOGLOBIN 29.7 pg (27.0-33.0); MEAN CORPUSCULAR VOLUME 92.9 fl (80.0-96.0); MONO # 0.8 10^3/uL (0.0-0.8); MONO % 11.4 % (2.0-8.0); NEUTROPHILS # 5.4 10^3/uL (1.5-8.5); NEUTROPHILS % 75.7 % (36.0-66.0); PLATELET COUNT, AUTOMATED 301 10^3/uL (150-450); RED BLOOD COUNT 2.66 10^6/uL (4.00-5.40); WHITE BLOOD COUNT 7.2 10^3/uL (4.0-10.0)
[2020-11-01 07:25] LABS: CALCIUM LEVEL 8.6 MG/DL (8.8-10.2); CREATININE FOR GFR 1.45 MG/DL (0.55-1.30); GLOMERULAR FILTRATION RATE 37.4 (>39)
--- NOTE | 2020-11-01 08:39 | REP ---
INDICATION: after chest tube placement. COMPARISON: Comparison chest x-ray October 31, 2020. TECHNIQUE: Two views.. FINDINGS: EKG electrodes are seen. Multiple surgical clips are again noted in the right axillary soft tissues. Left lung remains clear. There are multifocal areas of pleural thickening. An air-fluid level persists in the right mid lung field peripherally. These findings are unchanged from October 31, 2020. IMPRESSION: Stable pleuroparenchymal changes on the right.. <Electronically signed by Damien Braun > 11/01/20 [id number]
[2020-11-01] MEDS: MOM 30ML SUSPENSION UDC PO SCH (08:45)
[2020-11-01] MEDS: HumaLOG INSULIN (NovoLOG) PER UNIT SC SCH ×4 (08:45→20:16)
[2020-11-01] MEDS: DOCUSATE SODIUM 100MG CAPSULE PO SCH ×2 (08:45→20:22)
[2020-11-01] MEDS: VENLAFAXINE 37.5 MG TAB PO SCH ×2 (08:45→20:15)
[2020-11-01] MEDS: PANTOPRAZOLE 40MG TAB (PROTONIX) PO SCH (08:45)
[2020-11-01] MEDS ORDERED: D5W/0.9% SODIUM CHLORIDE 1,000 ML IV SCH (09:35)
--- NOTE | 2020-11-01 09:59 | IPNPDOC ---
Text Note Date of Service The patient was seen on 11/01/20. NOTE Subjective: Patient is a 75-year-old female with a PMHx of Metastatic right breast cancer with mets to lungs and pleura, CKD3, HTN, IDDM2, DLP, Hx of DVT, who was recently admitted for a suspected strangulated umbilical hernia and she had a noted large R pleural effusion and [place] was consulted drained it by chest tube placement on 10/02 and removal on 10/05 with reaccumulation for which he placed a pleurX catheter on 10/08 before discharge home. She has now returned with loculation of the pleural effusion with ineffective drainage by pleurX; now s/p chest tube replacement and tPA with thoracic surgery onboard. Patient was seen and examined at the bedside. Patient sitting up in bed, not in any acute distress. Reports that her breathing is doing relatively better. Denies any chest pain, palpitations, has not spent any nausea, vomiting. Reports no significant abdominal tenderness. Denies any urinary discomfort. Objective: Vitals (See below) General: She is sitting up in bed, appears to be comfortable, awake, alert, oriented to person, place and time HEENT: NC, AT CVS: +S1S2 Lungs: Air entry in the right side appears to be slightly diminished faint crackles at right lung base Abdomen: Remains soft and nondistended. There is mild tenderness right upper quadrant Extremities: Lower extremities reveal pitting edema Assessment and Plan: Recurrent right sided pleural effusion - Patient has a history of known malignant pleural effusions from metastatic breast cancer - CT Chest 10/27: Loculated right-sided hydropneumothorax status post Pleurx and basilar chest tube placement. Significant improvement noted since the October 24, 2020 study. - New chest tube placed by Dr. Agrawal on 10/25; removed on 10/30 - tPA pleurolysis via Pleurx catheter 10/28 - CTS on consultation; appreciate their input JUAN - Evidence of fluid overload still persists - but improving - Patient has an elevated Cr; approaching baseline - Baseline Cr of 1.1-1.2 - Nephrology called on consultation; appreciate their input Hyponatremia - likely 2/2 hypervolemic etiology - Improving with diuresis Normocytic anemia - Patient reports dark colored stools - Will check iron panel, b12, folate, reticulocyte count - Stool for occult blood pending - Will transfuse 1 unit PRBC; will follow up post-transfusion H&H Stage IV Breast CA - Infiltrating ductal carcinoma (Dx: 2002) - CT abdomen / pelvis 10/30: Ventral hernia trans Lou abdominal fat again seen unchanged. PleurX catheter on the right. 1.9 cm low-density lesion in the liver compatible with metastatic focus. No hydronephrosis or renal calculus disease seen. No acute abdominal or pelvic abnormality. - Patient follows with Dr. Sterling of Oncology; will have outpatient follow up IDDM2 with Hyperglycemia - c/w ISS and Levemir - Will increase dose of Levemir Depression - c/w venlafaxine DLP - c/w Simvastatin Hx of DVT - Vascular US 10/31: No evidence for deep venous thrombosis. - c/w full anticoagulation with Xarelto DVT prophylaxis - c/w full anticoagulation with Xarelto Disposition: - Awaiting clinical improvement VS,Tristonbone, I+O VS, Fishbone, I+O Laboratory Tests 11/01/20 06:25 Vital Signs Date Time Temp Pulse Resp B/P (MAP) Pulse Ox O2 Delivery O2 Flow Rate FiO2 11/01/20 08:00 96.6 89 18 137/65 (89) 100 Room Air 10/28/20 14:15 2.0 I&O- Last 24 Hours up to 6 AM 11/01/20 06:00 Intake Total 1260.0 ml Output Total 2200 ml Balance -940.0 ml EMMA LEON MD Nov 01, 2020 09:59
[2020-11-01] MEDS ORDERED: FUROSEMIDE 40MG/4ML VIAL (J1940) IV ONE ×2 (10:00→13:00)
[2020-11-01 11:01] LABS: PERCENT SATURATION 15.7 % (13.2-45.0)
[2020-11-01 12:06] LABS: FOLATE 17.2 NG/ML (>5.4)
[2020-11-01] MEDS: ACETAMINOPHEN TAB 650MG DOSE (2X325MG) PO PRN (12:14)
--- NOTE | 2020-11-01 12:16 | IPN ---
PROGRESS NOTE DATE: 11/01/2020 SUBJECTIVE: Mrs. Santiago is seen this morning on her bedside. She just came back from radiology after getting her chest x-ray done. She is feeling better and denies any dyspnea or chest pain at present. Her leg edema is gradually improving. She was given IV Lasix and IV albumin yesterday with good urine output. OBJECTIVE: VITAL SIGNS: Temperature 97.8 degrees Fahrenheit, heart rate 98 per minute, respiratory rate 18 per minute, blood pressure 146/67 mmHg, and oxygen saturation 92% on room air. HEAD: Atraumatic. NECK: Supple and without JVD or thyroid enlargement. She has no oral thrush or ulcers. HEART: Sounds are somewhat tachycardic. LUNGS: With diminished breath sounds on the right side. She also has a few rales on the right side. ABDOMEN: Soft and bowel sounds are normal. EXTREMITIES: Without any cyanosis or clubbing. Lower extremity edema is 2+ bilaterally. LABORATORY DATA: Today's labs show WBC count 7.2, hemoglobin 7.9, hematocrit 24.7, platelets 301,000. Sodium 132, potassium 4.0, CO2 of 29, BUN 48, creatinine 1.45, glucose 280, iron level 18, and saturation 15.7%. IMAGING DATA: The patient had an ultrasound of her lower extremities done yesterday, which was negative for DVT. ASSESSMENT/PLAN: 1. Acute kidney injury superimposed on chronic kidney disease. Kidney function has been improving and creatinine is down to 1.45 today. No emergent need for dialysis. 2. Hypervolemia with bilateral lower extremity edema. Her volume status is gradually improving. She responded very well to intravenous Lasix and albumin with a negative fluid balance of about 1 liter. We will give her two doses of Lasix and intravenous albumin again today. 3. Anemia. Her anemia did get worse and she is going to have transfusion ordered by the hospitalist service. 4. Hypertension. Blood pressure is very well controlled at present and no changes in antihypertensive medications are needed.
[2020-11-01 15:07] LABS: HEMATOCRIT 28.4 % (36.0-47.0); HEMOGLOBIN 9.1 g/dl (12.0-15.5)
[2020-11-01] MEDS: RIVAROXABAN 20 MG TAB (XARELTO) PO SCH (17:48)
[2020-11-01] MEDS: SIMVASTATIN 20 MG TAB PO SCH (20:15)
[2020-11-01] MEDS: VITAMIN D 1,000 INTERNATIONAL UNITS TABLET PO SCH (20:15)
[2020-11-01] MEDS: MULTIVITAMINS/MINERALS THERAP 1 TAB PO SCH (20:15)
[2020-11-01] MEDS: ASPIRIN 81MG ENTERIC TABLET PO SCH (20:15)
[2020-11-01] MEDS ORDERED: LEVEMIR (INSULIN DETEMIR) 1 UNITS/0.01ML SC SCH (21:00)
[2020-11-02] MEDS: LEVALBUTEROL 1.25 MG/0.5 ML CONCENTRATE NEB NEB SCH ×4 (02:00→20:33)
[2020-11-02 04:00] VITALS: BP 161/72
[2020-11-02] MEDS: SLF 3 ML SYR IV SCH ×3 (05:07→20:52)
[2020-11-02 06:11] LABS: BASO % 0.2 % (0.0-1.0); EOS % 0.1 % (0.0-3.0); HEMATOCRIT 26.1 % (36.0-47.0); HEMOGLOBIN 8.5 g/dl (12.0-15.5); LYMPH # 0.8 10^3/uL (1.5-5.0); MEAN CORPUSCULAR HEMOGLOBIN 29.8 pg (27.0-33.0); MEAN CORPUSCULAR HGB CONC 32.6 g/dl (32.0-36.5); MEAN CORPUSCULAR VOLUME 91.6 fl (80.0-96.0); MONO % 11.9 % (2.0-8.0); NEUTROPHILS # 6.3 10^3/uL (1.5-8.5); NEUTROPHILS % 76.6 % (36.0-66.0); PLATELET COUNT, AUTOMATED 316 10^3/uL (150-450); RED BLOOD COUNT 2.85 10^6/uL (4.00-5.40); WHITE BLOOD COUNT 8.3 10^3/uL (4.0-10.0)
[2020-11-02 06:28] LABS: CALCIUM LEVEL 8.3 MG/DL (8.8-10.2); CREATININE FOR GFR 1.48 MG/DL (0.55-1.30); GLOMERULAR FILTRATION RATE 36.5 (>39); MAGNESIUM LEVEL 1.9 MG/DL (1.8-2.4); POTASSIUM SERUM 3.5 MEQ/L (3.5-5.1)
[2020-11-02] MEDS ORDERED: POTASSIUM CHLORIDE 10 MEQ SR TABLET PO ONE (07:55)
[2020-11-02 08:00] VITALS: BP 141/62
--- NOTE | 2020-11-02 08:46 | IPN ---
PROGRESS NOTE DATE: 11/01/2020 SUBJECTIVE: Mrs. Santiago is breathing well and does not complain of shortness of breath. She is undergoing a blood transfusion now for anemia. The anemia still is of unknown cause. I did ask for her stool to be tested for heme and they missed a bowel movement this morning therefore, nothing has been tested as of yet. OBJECTIVE: VITAL SIGNS: Show a T-max of 97.9 with a heart rate that ranges between 89 to 104 in sinus rhythm. Respiratory rate of 17 to 19 without the use of accessory muscles who is 91% to 100% saturated on room air and whose blood pressure is ranging between 154/69 to 126/61. INTAKE AND OUTPUT: Over the past 24 hours has been recorded as 1820 in and 2800 out for a negativity of nearly 1 liter. She had 50 mL from the PleurX catheter yesterday. She weighs 80.9 kg today compared to 80.3 kg yesterday. She is being given albumin by the renal service along with IV Lasix. RESPIRATORY: She has coarse rales and rhonchi particularly at the right base. Percussion notes are full to the diaphragm. Left lung shows normal vesicular sounds. CARDIAC: Without murmurs, clicks, gallops, or rubs. I cannot feel her PMI. S1 and S2 are normal. ABDOMEN: Soft and nontender. Bowel sounds are positive. There is no hepatomegaly. No CVA tenderness. EXTREMITIES: Show 1 to 2+ pretibial edema, which is improved over yesterday. No calf tenderness. No differential swelling of the upper extremities. SKIN: Warm, dry, and perfused without cyanosis or mottling, including that of the nail beds and knees. NECK: Supple. There is no jugular venous distention. No subcutaneous emphysema. Trachea is midline. MOUTH: Shows the mucous membranes to be pink and moist. Lips and commisures are without lesions and no thrush. EYES: Show her pupils equal and reactive. Extraocular muscles are intact. Sclerae nonicteric. NEUROLOGIC: Shows II through XII intact. Normal gross motor, gross sensation intact. Gait is not tested. PSYCHIATRIC: Shows her to be awake, alert, and oriented x3 with appropriate mood and affect and conversational. LABORATORY DATA: Her white count today is 7.2 with a hemoglobin and hematocrit of 7.9 and 24.7 rising to 9.1 and 28.4 after 1 unit of transfusion. Her platelet count is 301,000 and stable. Differential shows 75% neutrophils, 12% lymphocytes, and 11% monocytes. There are no immature forms and no toxic granulations. Her electrolytes show a sodium of 132 with a potassium of 4.0 and a BUN and creatinine that continue to improve to 48 and 1.45 from 53 and 1.53 yesterday. Glucose is 280 with a calcium of 8.6. I do not see whether her albumin has been measured. IMAGING DATA: Her chest x-ray shows a diffuse haze in the right lower hemithorax. This looks like an infiltrative process or an atelectatic process. Lateral chest x-ray does not show a pleural effusion and in fact, the pleural effusion that was seen yesterday is markedly improved. There is no longer a posterior collection. There is still a small air fluid level in the fissural loculation, which is not at all visible on the lateral film. IMPRESSION: 1. Metastatic malignant pleural effusion minimally loculated and now resolved. 2. Metastatic breast cancer. 3. Hypertension. 4. Diabetes. 5. History of deep vein thrombosis. 6. Arthritis. 7. Acute renal injury on top of chronic renal disease improving. 8. Hyponatremia improving. 9. Anemia treated with a transfusion. PLAN AND DISCUSSION: We will continue to drain her PleurX catheter q. day. There is no evidence of the anterior or fissural loculations reoccurring. I suspect that the very small amount coming out the PleurX catheter merely reflects the fact that there is very little fluid left in her chest at this point in time. Again, we need to test her stools for blood to ascertain if she has GI bleeding, which would be the most common cause of an unknown anemia. I certainly cannot assign it to her pleural effusion.
--- NOTE | 2020-11-02 08:52 | REP ---
INDICATION: after chest tube placement COMPARISON: 11/01/2020 TECHNIQUE: PA and lateral. FINDINGS: Right-sided chest tube in stable position. Right-sided pleuroparenchymal changes again noted and essentially unchanged including areas of consolidation/atelectasis and air-fluid level suggesting hydropneumothorax. Small left pleural effusion and trace left basilar atelectasis are also suggested. IMPRESSION: 1. No significant change from prior examination. <Electronically signed by Rodney Panda > 11/02/20 [id number]
[2020-11-02] MEDS: DOCUSATE SODIUM 100MG CAPSULE PO SCH ×2 (09:49→20:50)
[2020-11-02] MEDS: VENLAFAXINE 37.5 MG TAB PO SCH ×2 (09:49→20:51)
[2020-11-02] MEDS: PANTOPRAZOLE 40MG TAB (PROTONIX) PO SCH (09:49)
[2020-11-02] MEDS: MOM 30ML SUSPENSION UDC PO SCH (09:49)
[2020-11-02] MEDS: HumaLOG INSULIN (NovoLOG) PER UNIT SC SCH ×4 (09:50→20:52)
--- NOTE | 2020-11-02 10:03 | IPNPDOC ---
Subjective General Date/Time Seen The patient was seen on 11/02/20 at 09:56. Subject Chief Complaint/History The patient is a 75-year-old female admitted with a reason for visit of Loculated Pleural. SUBJECTIVE: Ms. Santiago was seen and examined at the bedside this morning. She has no complaints and reports she is feeling well. Her lower extremity swelling has improved immensely. She denies any shortness of breath or difficulty breathing. She urinated over 2000 mL urine yesterday after being given albumin and Lasix 2. OBJECTIVE: PHYSICAL EXAMINATION: VITAL SIGNS: see below GENERAL: alert and oriented, in no apparent distress, pleasant and conversant in full sentences. HEENT: PERRL, EOMI, Oral mucous membranes are moist without lesions. NECK: The patient has no noted JVD. No adenopathy is appreciated. No thyromegaly CHEST/LUNGS: Diminished breath sounds on the right side, no crackles, no rales, no rhonchi HEART: Regular rate and rhythm. No murmurs, rubs, or gallops are appreciated. Distal pulses are 2+. No carotid bruits appreciated. ABDOMEN: Soft, nontender, and nondistended. Bowel sounds are positive. No organomegaly is appreciated. No masses are appreciated. There are no peritoneal signs. There is no [place] sign. EXTREMITIES: Trace peripheral edema. There is no focal long bone tenderness or deformity. SKIN: The patients skin is warm and dry, without rashes or lesions. PSYCHIATRIC: AAO x 3, normal mood/affect NEUROLOGIC: No obvious focal deficits IMAGING: CXR 11/01/20: FINDINGS: Right-sided chest tube in stable position. Right-sided pleuroparenchymal changes again noted and essentially unchanged including areas of consolidation/atelectasis and air-fluid level suggesting hydropneumothorax. Small left pleural effusion and trace left basilar atelectasis are also suggested. IMPRESSION: 1. No significant change from prior examination. ASSESSMENT: This is a 75 year old female with history of metastatic right breast cancer with metastases to lungs and pleura status post chest tube drainage, CKD3, hypertension who presented with shortness of breath found to have large right pleural effusion and acute kidney injury. Nephrology's consult for management of acute kidney injury superimposed on chronic kidney disease. PLAN: 1. Acute kidney injury superimposed on chronic kidney disease: Creatinine baseline of 1.1-1.2 -Creatinine today 1.48 from 1.45 yesterday. Creatinine is slowly improving -No emergent need for dialysis today -Urine output 2300 mL yesterday 2. Hypervolemia with bilateral lower extremity edema: -This has improved today, trace edema in lower extremities bilaterally -Negative fluid balance from yesterday status post albumin and Lasix -No further diuresis ordered for today 3. Anemia: -Hemoglobin today 8.5 from 9.1 yesterday -Transfusions per primary team 4. Hypertension: -Blood pressures have remained within normal limits 5. Hypokalemia: -Potassium today found to be 3.5, likely secondary to recent diuresis -Potassium replaced via oral supplement DISPO: Kidney function is improving. No need for further diuresis today Current Medications Current Medications Current Medications Medications (Trade) Dose Ordered Sig/Joseph Route PRN Reason Start Time Stop Time Status Last Admin Dose Admin Acetaminophen (Tylenol Tab) 650 mg Q6HP PRN PO T > 101.5 or JONES 10/25/20 11:05 11/01/20 12:14 Acetaminophen/ Hydrocodone Bitart ([place], Anexsia 5/325) 1 tab Q3H PRN PO MILD PAIN (PS 1-4) 10/25/20 11:05 10/31/20 12:26 DC 10/28/20 13:45 Aspirin (Ecotrin) 81 mg QHS PO 10/25/20 21:00 11/01/20 20:15 Bisacodyl (Dulcolax Suppository) 10 mg Q4HP PRN [place] CONSTIPATION 10/25/20 11:05 Dextrose (Dextrose 50%) 25 ml ASDIRECTED PRN IV SEE LABEL COMMENTS 10/25/20 13:05 Dextrose/Sodium Chloride 1,000 ml @ 60 mls/hr [id number] IV 11/01/20 09:35 11/01/20 09:36 DC Dextrose/Sodium Chloride 1,000 ml @ 75 mls/hr [id number] IV 10/25/20 11:05 10/25/20 18:32 DC 10/25/20 11:05 Docusate Sodium (Colace) 100 mg BID PO 10/25/20 21:00 11/02/20 09:49 Glucagon (Glucagon) 1 mg ASDIRECTED PRN SC SEE LABEL COMMENTS 10/25/20 13:05 Glucose (Glucose) 16 GM ASDIRECTED PRN PO SEE LABEL COMMENTS 10/25/20 13:05 Home Med (Med Rec Complete!) ASDIRECTED XX 10/25/20 12:20 10/25/20 12:20 DC Insulin Detemir (Levemir Insulin) 32 units QHS SC 10/25/20 21:00 10/29/20 17:39 DC 10/28/20 21:10 Insulin Detemir (Levemir Insulin) 37 units QHS SC 10/29/20 21:00 11/01/20 09:28 DC 10/31/20 20:43 Insulin Detemir (Levemir Insulin) 45 units QHS SC 11/01/20 21:00 11/02/20 09:06 DC 11/01/20 20:16 Insulin Detemir (Levemir Insulin) 55 units QHS SC 11/02/20 21:00 Insulin Human Lispro (HumaLOG INSULIN) See Protocol Table AC SC 10/25/20 12:00 11/02/20 09:50 Insulin Human Lispro (HumaLOG INSULIN) See Protocol Table QHS SC 10/25/20 21:00 11/01/20 20:16 Levalbuterol HCl (Xopenex Neb) 1.25 mg Q2HP PRN NEB WHEEZING 10/25/20 11:05 Levalbuterol HCl (Xopenex Neb) 1.25 mg RQ6H NEB 10/25/20 14:00 11/02/20 08:04 Magnesium Hydroxide (Milk Of Magnesia) 30 ml DAILY PO 10/26/20 09:00 11/02/20 09:49 Miscellaneous (Unresolved Clarification Entry) SEE LABEL COMMENTS DAILY XX 10/31/20 09:00 10/31/20 12:27 DC Multivitamins (Theragram-M) 1 tab QHS PO 10/25/20 21:00 11/01/20 20:15 Ondansetron HCl (ZOFRAN INJection) 4 mg Q4HP PRN IV NAUSEA 10/25/20 11:05 10/28/20 12:50 Oxycodone/ Acetaminophen (Percocet 5mg/ 325mg Tablet) 1 tab Q4H PRN PO MODERATE PAIN (PS 5-7) 10/25/20 11:05 10/31/20 12:26 DC Oxycodone/ Acetaminophen (Percocet 5mg/ 325mg Tablet) 2 tab Q4H PRN PO SEVERE PAIN (PS 8-10) 10/25/20 11:05 10/31/20 12:26 DC Pantoprazole Sodium (Protonix) 40 mg DAILY PO 10/26/20 09:00 11/02/20 09:49 Rivaroxaban (Xarelto) 20 mg DAILY@1800 PO 10/25/20 18:00 11/01/20 17:48 Simvastatin (Zocor) 20 mg QHS PO 10/25/20 21:00 11/01/20 20:15 Sodium Chloride (Saline Lock Flush) 2 ml ASDIRECTED PRN IV SEE LABEL COMMENTS 10/25/20 21:10 Sodium Chloride (Saline Lock Flush) 2 ml SLF IV 10/25/20 22:00 11/02/20 05:07 Venlafaxine HCl (Effexor) 75 mg BID PO 10/25/20 21:00 11/02/20 09:49 Vitamin D (Vitamin D) 1,000 units QHS PO 10/25/20 21:00 11/01/20 20:15 Allergies Coded Allergies: adhesive tape (Verified Allergy, Intermediate, rash, 12/23/18) exenatide (Verified Allergy, Mild, itching, 12/23/18) VS,Tristonbone, I+O VS, Fishbone, I+O Laboratory Tests 11/01/20 14:49 11/02/20 05:31 Vital Signs Date Time Temp Pulse Resp B/P (MAP) Pulse Ox O2 Delivery O2 Flow Rate FiO2 11/02/20 08:00 98.9 99 16 141/62 (88) 91 Room Air 10/28/20 14:15 2.0 I&O- Last 24 Hours up to 6 AM 11/02/20 06:00 Intake Total 1230.0 ml Output Total 2730 ml Balance -1500.0 ml GME ATTESTATION GME ATTESTATION My faculty preceptor for this patient encounter was physically present during the encounter and was fully available. All aspects of the patient interview, examination, medical decision making process, and medical care plan development were reviewed and approved by the faculty preceptor. The faculty preceptor is aware and concurs with the plan as stated in the body of this note and will attest to such by his/her cosignature. LESLIE NGUYEN MD Nov 02, 2020 10:03
--- NOTE | 2020-11-02 10:39 | IPN ---
PROGRESS NOTE DATE: 11/02/2020 SUBJECTIVE: Ms. Santiago is feeling better today and breathing well. She had minimal out the PleurX catheter yesterday. Her peripheral edema is decreasing. OBJECTIVE: VITAL SIGNS: Show a T-max of 99.0 with a heart rate that ranges between 99 and 104 in sinus rhythm. Respiratory rate of 16 to 17 without the use of accessory muscles who is 91% to 92% saturated room air and whose blood pressure is ranging between 161/72 to 141/62. INTAKE AND OUTPUT: Over the past 24 hours has been recorded as 1230 in and 233 out for a negativity of 1100 mL. She put out 30 mL from the PleurX catheter yesterday. Her weight today is 81.9 kg compared to 80.9 kg yesterday. RESPIRATORY: She has inspiratory rales and rhonchi in the right lower hemithorax. The remainder of her lungs show normal vesicular sounds. Percussion notes are full to the diaphragm. CARDIAC: Without murmurs, clicks, gallops, or rubs. I cannot feel her PMI. S1 and S2 are normal. ABDOMEN: Soft and nontender. Bowel sounds are positive. There is no hepatomegaly. No CVA tenderness. EXTREMITIES: Show now 1 to 2+ pretibial edema. No calf tenderness. No differential swelling of the upper extremities. SKIN: Warm, dry, and perfused without cyanosis or mottling, including that of the nail beds and knees. NECK: Supple. There is no jugular venous distention. No subcutaneous emphysema. Trachea is midline. MOUTH: Shows her mucous membranes to be pink and moist. Lips and commisures are without lesions and no thrush. EYES: Show her pupils equal and reactive. Extraocular muscles are intact. Sclerae nonicteric. NEUROLOGIC: Shows II through XII intact. Normal gross motor, gross sensation intact. Gait is not tested. PSYCHIATRIC: Shows her to be awake, alert, and oriented x3 with appropriate mood and affect and conversational. LABORATORY DATA: Her white count today is 8.3 with a hemoglobin and hematocrit of 8.5 and 26.1 respectively. Her H&H has again dropped from 9.1 and 28.4 yesterday just after her transfusion. Platelets are 316,000 and differential shows 76% neutrophils, 10% lymphocytes, and 11% monocytes. There are no immature forms and no toxic granulations. Her stool for occult blood still has not been collected. Her electrolytes today show a sodium of 134, which continues to improve with a BUN and creatinine of 45 and 1.48, which is essentially unchanged from yesterday. Glucose is 305 with a calcium of 8.3 and a magnesium of 1.9. IMAGING DATA: Her chest x-ray shows the vague infiltrate pattern in the lower hemithorax on the right side. Costophrenic angle is slightly blunted. I do not see a pleural effusion, however, on the lateral view. The left lung is unremarkable on the PA view. IMPRESSION: 1. Metastatic malignant pleural effusion minimally loculated hopefully now resolved. 2. Metastatic breast cancer. 3. Hypertension. 4. Diabetes. 5. History of deep vein thrombosis. 6. Arthritis. 7. Acute renal injury on top of chronic renal disease, improving. 8. Hyponatremia, improving. 9. Anemia treated with transfusion, but still no cause. PLAN AND DISCUSSION: It is imperative that her stool be collected today for occult blood. Common things being common, it would not surprise me that she has a gastrointestinal (GI) bleed to explain her recurrent anemia. I cannot explain it by hemodilution as her intake and output (I&Os) are negative. As far as pleural effusion is concerned, it looks to be under control and her PleurX catheter is draining minimally. I will change the PleurX catheter drainage to every other day. I will be following more from afar and will not be seeing the patient every day, although I will review her chest x-rays. Arrangements should be made for her follow-up with [facility] either on a consultation basis in the hospital or as an outpatient.
[2020-11-02 12:00] VITALS: BP 130/63
--- NOTE | 2020-11-02 13:41 | IPNPDOC ---
Text Note Date of Service The patient was seen on 11/02/20. NOTE Subjective: Patient is a 75-year-old female with a PMHx of Metastatic right breast cancer with mets to lungs and pleura, CKD3, HTN, IDDM2, DLP, Hx of DVT, who was recently admitted for a suspected strangulated umbilical hernia and she had a noted large R pleural effusion and Nghia was consulted drained it by chest tube placement on 10/02 and removal on 10/05 with reaccumulation for which he placed a pleurX catheter on 10/08 before discharge home. She has now returned with loculation of the pleural effusion with ineffective drainage by pleurX; now s/p chest tube replacement and tPA with thoracic surgery onboard. Patient was seen and examined at the bedside. Patient reports that overnight she did not have any problems. She reports that her breathing is doing significantly better. Denies any significant cough, nausea, vomiting, belly pain or diarrhea. She has not yet had any bowel movements. Rectal exam was performed in the room; stool was brown. Objective: Vitals (See below) General: Patient sitting up in bed, appears to be comfortable, not in any acute distress, is awake, alert, oriented to person, place and time HEENT: NC, AT CVS: +S1S2 Lungs: Again, there is diminished air entry at the right lung field without any auscultated evidence of wheezing, crackles or rhonchi on the left side; right- sided Pleurx catheter noted Abdomen: Abdomen remains soft without any distention or tenderness Extremities: Still remains in edema bilaterally Assessment and Plan: Recurrent right sided pleural effusion - Patient has a history of known malignant pleural effusions from metastatic breast cancer - CT Chest 10/27: Loculated right-sided hydropneumothorax status post Pleurx and basilar chest tube placement. Significant improvement noted since the October 24, 2020 study. - New chest tube placed by Dr. Agrawal on 10/25; removed on 10/30 - tPA pleurolysis via Pleurx catheter 10/28 - CTS on consultation; case discussed will continue with drainage of Pleurx catheter [id number] JUAN - Evidence of fluid overload still persists - but improving - Patient has an elevated Cr; approaching baseline - Baseline Cr of 1.1-1.2 - Nephrology called on consultation; appreciate their input - At this point will continue with furosemide twice daily PO Hyponatremia - likely 2/2 hypervolemic etiology - Improving with diuresis Normocytic anemia - possibly 2/2 renal disease - Rectal exam did revealed brown stool; not dark - Stool for occult blood negative - s/p 1 unit PRBC - Hg stable Stage IV Breast CA - Infiltrating ductal carcinoma (Dx: 2002) - CT abdomen / pelvis 10/30: Ventral hernia trans Lou abdominal fat again seen unchanged. PleurX catheter on the right. 1.9 cm low-density lesion in the liver compatible with metastatic focus. No hydronephrosis or renal calculus disease seen. No acute abdominal or pelvic abnormality. - Patient follows with Dr. Sterling of Oncology; will have outpatient follow up IDDM2 with Hyperglycemia - c/w ISS and Levemir - Will again increase dose of Levemir Depression - c/w venlafaxine DLP - c/w Simvastatin Hx of DVT - Vascular US 10/31: No evidence for deep venous thrombosis. - c/w full anticoagulation with Xarelto DVT prophylaxis - c/w full anticoagulation with Xarelto Disposition: - Awaiting clinical improvement - Anticipate DC home tomorrow VS,Rylie, I+O VS, Rylie, I+O Laboratory Tests 11/01/20 14:49 11/02/20 05:31 Vital Signs Date Time Temp Pulse Resp B/P (MAP) Pulse Ox O2 Delivery O2 Flow Rate FiO2 11/02/20 12:00 98.1 89 16 130/63 (85) 94 Room Air 10/28/20 14:15 2.0 I&O- Last 24 Hours up to 6 AM 11/02/20 06:00 Intake Total 1230.0 ml Output Total 2730 ml Balance -1500.0 ml EMMA LENO MD Nov 02, 2020 13:41
[2020-11-02 16:00] VITALS: BP 179/72
[2020-11-02] MEDS: FUROSEMIDE 40 MG TAB PO SCH (17:24)
[2020-11-02] MEDS: RIVAROXABAN 20 MG TAB (XARELTO) PO SCH (17:24)
[2020-11-02 20:00] VITALS: BP 141/83
[2020-11-02] MEDS: SIMVASTATIN 20 MG TAB PO SCH (20:50)
[2020-11-02] MEDS: ASPIRIN 81MG ENTERIC TABLET PO SCH (20:50)
[2020-11-02] MEDS: VITAMIN D 1,000 INTERNATIONAL UNITS TABLET PO SCH (20:51)
[2020-11-02] MEDS: LEVEMIR (INSULIN DETEMIR) 1 UNITS/0.01ML SC SCH (20:51)
[2020-11-02] MEDS: MULTIVITAMINS/MINERALS THERAP 1 TAB PO SCH (20:51)
[2020-11-03] VITALS (7 sets, daily range): BP systolic 112–142; BP diastolic 52–67
[2020-11-03] MEDS: ACETAMINOPHEN TAB 650MG DOSE (2X325MG) PO PRN ×2 (00:20→17:32)
[2020-11-03] MEDS: LEVALBUTEROL 1.25 MG/0.5 ML CONCENTRATE NEB NEB SCH ×2 (01:46→07:38)
[2020-11-03 02:13] LABS: RSV AMPLIFICATION NEGATIVE (NEGATIVE)
[2020-11-03 03:12] LABS: BASO % 0.2 % (0.0-1.0); HEMATOCRIT 27.4 % (36.0-47.0); HEMOGLOBIN 8.9 g/dl (12.0-15.5); LYMPH # 0.3 10^3/uL (1.5-5.0); LYMPH % 2.1 % (24.0-44.0); MEAN CORPUSCULAR HEMOGLOBIN 30.4 pg (27.0-33.0); MEAN CORPUSCULAR HGB CONC 32.5 g/dl (32.0-36.5); MEAN CORPUSCULAR VOLUME 93.5 fl (80.0-96.0); MONO # 0.9 10^3/uL (0.0-0.8); MONO % 5.3 % (2.0-8.0); NEUTROPHILS # 14.8 10^3/uL (1.5-8.5); NEUTROPHILS % 91.5 % (36.0-66.0); PLATELET COUNT, AUTOMATED 313 10^3/uL (150-450); RED BLOOD COUNT 2.93 10^6/uL (4.00-5.40); WHITE BLOOD COUNT 16.2 10^3/uL (4.0-10.0)
[2020-11-03 03:38] LABS: CREATININE FOR GFR 1.5 MG/DL (0.55-1.30); GLOMERULAR FILTRATION RATE 35.9 (>39); MAGNESIUM LEVEL 2.1 MG/DL (1.8-2.4); POTASSIUM SERUM 4.1 MEQ/L (3.5-5.1)
[2020-11-03 03:44] LABS: VENOUS BASE EXCESS 3.8 (-2.0-2.0); VENOUS HCO3 28.7 MEQ/L (23.0-27.0); VENOUS O2 SATURATION 82.3 % (60.0-80.0); VENOUS PARTIAL PRESSURE O2 39.1 mmHg (30.0-50.0); VENOUS PH 7.423 UNITS (7.330-7.430); VENOUS STANDARD HCO3 27.7 MEQ/L; VENOUS TOTAL CO2 30.1 MEQ/L (24.0-28.0)
--- NOTE | 2020-11-03 04:58 | REPVR ---
PROCEDURE INFORMATION: Exam: XR Chest Exam date and time: 11/03/2020 3:54 AM Age: 75 years old Clinical indication: Other: After chest tube placement TECHNIQUE: Imaging protocol: XR of the chest. Views: 2 views. COMPARISON: CR Chest, 2 view PA, Lat 10/31/2020 9:31 AM FINDINGS: Tubes, catheters and devices: A right pleural tube extending posteriorly is unchanged. Lungs: There is patchy consolidation in the right mid and lower lung zone, slightly improved compared to previously. Pleural spaces: There is a small left pleural effusion which is new or larger than previously. A small right pleural effusion is unchanged. An air-fluid level is again seen laterally in the right mid chest, presumably a hydropneumothorax, but there is less surrounding opacity making it less conspicuous. Heart/Mediastinum: The heart is normal in size. Vasculature: Aortic knob calcifications are noted. Bones/joints: Unremarkable. Soft tissues: Multiple right axillary clips are again present. IMPRESSION: 1. Some improvement in the patchy consolidation in the right mid and lower lung zones compared to previously. 2. Small air-fluid level again seen in the right mid chest, presumably a small hydropneumothorax. 3. Continued small right pleural effusion, with a right pleural tube again present. 4. Small left pleural effusion which is new or larger than previously peer Electronically signed by: Arline Brown On 11/03/2020 04:57:46 AM
[2020-11-03] MEDS: PIPERACILLIN/TAZOBACTAM SOD 3.375 GM in D5W MINI-BAG PLUS 50 ML IV SCH ×4 (05:16→22:27)
[2020-11-03] MEDS: SLF 3 ML SYR IV SCH ×3 (05:16→21:32)
[2020-11-03] MEDS: VANCOMYCIN HCL 1,000 MG, VIAL MATE ADAPTER 1 EACH in NS 250 ML IV SCH (06:43)
[2020-11-03] MEDS ORDERED: VANCOMYCIN HCL 500 MG in D5W MINI-BAG PLUS 100 ML IV ONE (07:00)
[2020-11-03] MEDS ORDERED: LEVALBUTEROL HFA 45MCG/ACT 15 GM INHALER INH PRN (08:45)
[2020-11-03] MEDS: DOCUSATE SODIUM 100MG CAPSULE PO SCH ×2 (09:00→21:29)
[2020-11-03] MEDS: MOM 30ML SUSPENSION UDC PO SCH (09:00)
[2020-11-03] MEDS: VENLAFAXINE 37.5 MG TAB PO SCH ×2 (09:28→21:30)
[2020-11-03] MEDS: PANTOPRAZOLE 40MG TAB (PROTONIX) PO SCH (09:28)
--- NOTE | 2020-11-03 09:28 | REP ---
INDICATION: Fever COMPARISON: 10/27/2020 TECHNIQUE: Axial noncontrast images from the thoracic inlet to the upper abdomen with coronal and sagittal reformations. This CT examination was performed using the following dose reduction techniques: Automated exposure control, adjustment of mA and/or kv according to the patient's size, and use of iterative reconstruction technique. FINDINGS: The partially loculated right hydropneumothorax and associated scattered right sided atelectasis has moderately improved as compared with 10/27/2020. Minimal left pleural effusion and associated left basilar atelectasis identified. Tracheobronchial tree appears relatively patent. Reactive mediastinal and hilar adenopathy is essentially unchanged. Atherosclerotic changes to the thoracic aorta and coronary arteries without aortic aneurysm or cardiomegaly again noted and stable. IMPRESSION: Mild/moderately improved right-sided hydropneumothorax and atelectasis. Minimal left basilar atelectasis and small pleural reaction. <Electronically signed by Rodney Panda > 11/03/20 [id number]
[2020-11-03] MEDS: FUROSEMIDE 40 MG TAB PO SCH ×2 (09:31→17:28)
[2020-11-03] MEDS: HumaLOG INSULIN (NovoLOG) PER UNIT SC SCH ×4 (09:38→21:34)
[2020-11-03] MEDS: LEVALBUTEROL HFA 45MCG/ACT 15 GM INHALER INH SCH ×3 (11:44→20:01)
--- NOTE | 2020-11-03 11:56 | IPNPDOC ---
Text Note Date of Service The patient was seen on 11/03/20. NOTE Subjective: Patient is a 75-year-old female with a PMHx of Metastatic right breast cancer with mets to lungs and pleura, CKD3, HTN, IDDM2, DLP, Hx of DVT, who was recently admitted for a suspected strangulated umbilical hernia and she had a noted large R pleural effusion and Nghia was consulted drained it by chest tube placement on 10/02 and removal on 10/05 with reaccumulation for which he placed a pleurX catheter on 10/08 before discharge home. She has now returned with loculation of the pleural effusion with ineffective drainage by pleurX; now s/p chest tube replacement and tPA with thoracic surgery onboard. Patient was seen and examined at the bedside. Overnight patient had experience a fever of 103. Patient is septic workup completed without any overt findings. She was started on broad-spectrum antibiotics with vancomycin and Zosyn. Currently patient denies any significant changes from yesterday. She reports that her breathing is doing relatively fine. Denies any chest pain, shortness of breath or palpitations. Has not experience any abdominal pain or diarrhea. Denies any urinary discomfort. Objective: Vitals (See below) General: Patient is lying in bed, appears to be comfortable, not in any acute distress, awake, alert and oriented to person, place and time HEENT: NC, AT CVS: +S1S2 Lungs: Diminished lung sounds at right lung field. Right Pleurx catheter noted. No evidence of wheezing, rhonchi or crackles at the left lung field Abdomen: Soft, nondistended and nontender Extremities: Lower extremities still reveal pitting edema that is present bilaterally Assessment and Plan: Fever / Leukocytosis - Patient a fever of 103. Overnight - She remains hemodynamically stable - Leukocytosis and pro-calcitonin or elevated - No lactic acidosis - CT Chest 11/03: Mild/moderately improved right-sided hydropneumothorax and atelectasis. Minimal left basilar atelectasis and small pleural reaction. - Blood cultures / Urine cultures / MRSA / Pleural fluid cultures and cell count pending - c/w Vancomycin and Zosyn (Day #1) Recurrent right sided pleural effusion - Patient has a history of known malignant pleural effusions from metastatic breast cancer - CT Chest 10/27: Loculated right-sided hydropneumothorax status post Pleurx and basilar chest tube placement. Significant improvement noted since the October 24, 2020 study. - New chest tube placed by Dr. Agrawal on 10/25; removed on 10/30 - tPA pleurolysis via Pleurx catheter 10/28 - Will re-evaluate pleural fluid - CTS on consultation JUAN - Evidence of fluid overload still persists - but improving - Patient has an elevated Cr; approaching baseline - Baseline Cr of 1.1-1.2 - Nephrology called on consultation; appreciate their input - c/w oral diuretics Hyponatremia - likely 2/2 hypervolemic etiology - Improving with diuresis Normocytic anemia - possibly 2/2 renal disease - Rectal exam did revealed brown stool; not dark - Stool for occult blood negative - s/p 1 unit PRBC - Hg stable Stage IV Breast CA - Infiltrating ductal carcinoma (Dx: 2002) - CT abdomen / pelvis 10/30: Ventral hernia trans Lou abdominal fat again seen unchanged. PleurX catheter on the right. 1.9 cm low-density lesion in the liver compatible with metastatic focus. No hydronephrosis or renal calculus disease seen. No acute abdominal or pelvic abnormality. - Patient follows with Dr. Sterling of Oncology; will have outpatient follow up IDDM2 with Hyperglycemia - c/w ISS and adjusted dose of Levemir Depression - c/w venlafaxine DLP - c/w Simvastatin Hx of DVT - Vascular US 10/31: No evidence for deep venous thrombosis. - c/w full anticoagulation with Xarelto DVT prophylaxis - c/w full anticoagulation with Xarelto Disposition: - Awaiting clinical improvement VSRylie, I+O VS, Rylie, I+O Laboratory Tests 11/03/20 03:02 Vital Signs Date Time Temp Pulse Resp B/P (MAP) Pulse Ox O2 Delivery O2 Flow Rate FiO2 11/03/20 08:18 99.8 94 20 140/63 (88) 93 Room Air 10/28/20 14:15 2.0 I&O- Last 24 Hours up to 6 AM 11/03/20 06:00 Intake Total 1840 ml Output Total 610 ml Balance 1230 ml EMMA LEON MD Nov 03, 2020 11:56
[2020-11-03 12:06] LABS: ALBUMIN 2.2 GM/DL (3.2-5.2); BILIRUBIN,DIRECT 0.3 MG/DL (0.0-0.2); BILIRUBIN,TOTAL 0.5 MG/DL (0.2-1.0); TOTAL PROTEIN 5.6 GM/DL (6.4-8.2)
--- NOTE | 2020-11-03 12:06 | IPN ---
PROGRESS NOTE DATE: 11/03/2020 Ms. Santiago spiked a fever last night to 102.3. She is feeling fairly well, though she does state she feels a bit tired. She is breathing well. She has a slight cough with some slight sputum production, for which we are trying to get a sputum sample. There is no dysuria. She has been exposed to COVID from a hospital staff person and is on respiratory precautions. Her vital signs show the above maximum temperature with a heart rate that ranges between 84-103 in a sinus rhythm, respiratory rate of 18-20 without the use of accessory muscles, who is 93%-94% saturated on room air and whose blood pressure is ranging between 112/52 to 140/63. Her intake and output for the past 24 hours has been recorded as 1840 in and 1010 out, for a positivity of 830 mL. She put out 10 mL from the PleurX catheter yesterday. I did try to drain her today with just drops, which I have cultured. Her weight today is 78.6 kg compared to 81.9 kg yesterday. PHYSICAL EXAMINATION: She has some rales in the right lower hemithorax at the end of expiration. Percussion note is full to the diaphragm. Cardiac exam is without murmurs, clicks, gallops, or rubs. I cannot feel her point of maximal impulse (PMI). S1 and S2 are normal. Abdomen is soft and nontender. Bowel sounds are positive. There is no hepatomegaly. No costovertebral angle (CVA) tenderness. She is not having diarrhea. Extremities show 1+ pretibial edema. No calf tenderness, no differential swelling of the upper extremities. Skin is warm, dry, and perfused without cyanosis or mottling, including that of the nailbeds and knees. Neck is supple. There is no jugular venous distention. No subcutaneous emphysema. Trachea is midline. Mouth shows the mucous membranes to be pink and moist. Lips and commissures without lesions. There is no thrush. Eyes show her pupils to be equal and reactive. Extraocular motion intact. Sclerae anicteric. Neurologic shows II-XII intact. Normal gross motor, gross sensation intact. Gait is not tested. Psychiatric shows her to be awake, alert, and oriented times three with appropriate mood and affect and conversational. Her white count has spiked to 16.2 from 8.3 yesterday. Hemoglobin and hematocrit are 8.9 and 27.4, slightly improved from 8.5 to 26.1 yesterday. Platelet count is 313. Differential shows 91% neutrophils, 2% lymphocytes, and 5% monocytes. There are no immature forms or toxic granulations to suggest sepsis. Her electrolytes are essentially normal with a BUN and creatinine of 42 and 1.50, essentially unchanged from yesterday. Glucose is 271 with a calcium of 8.0 and magnesium 2.1. Her lactic acid is 1.4, and her procalcitonin is 13.31. Her chest x-ray done this morning shows the lung fully expanded to the chest wall with a vague opacity in the right lower hemithorax, which is slightly infiltrative. Right costophrenic angle is blunted. A CT scan done today by the hospitalist service shows minimal pleural fluid. There is a little bit of pleural fluid still left in the fissure. She has some infiltrates in the lower lobe and a rib of fluid around but outside the pericardium and the mediastinal pleura. The remainder of the lung parenchyma in the right side looks like atelectasis. It is also consistent with a pneumonia or pneumonic process. IMPRESSION: 1. Malignant pleural effusion, minimally loculated and resolved. 2. Metastatic breast cancer. 3. Hypertension. 4. Diabetes. 5. History of deep venous thrombosis (DVT). 6. Arthritis. 7. Acute renal injury overlying chronic renal disease, improving. 8. Hyponatremia, improving. 9. Anemia, treated with transfusion, slightly improving. 10. Fever and leukocytosis, unknown origin. 11. Exposure to COVID. PLAN AND DISCUSSION: We were actually planning to send Ms. Santiago home today, until she spiked her temperature. She is on respiratory precautions now. She has been vaccinated, and we really do not think this is a COVID manifestation. She has no dysuria, but we are checking a urinalysis with culture. We are also asking her to expectorate some sputum. I have already cultured the pleural fluid. Inspection of the pleural catheter exit site shows it to be intact and not infected. Blood cultures are also pending. There is no diarrhea for us to suspect Clostridium (C) difficile. She has been started on vancomycin, for which she has gotten one dose secondary to her renal failure, and Zosyn.
--- NOTE | 2020-11-03 12:29 | IPNPDOC ---
Subjective General Date/Time Seen The patient was seen on 11/03/20 at 12:21. Subject Chief Complaint/History The patient is a 75-year-old female admitted with a reason for visit of Loculated Pleural. SUBJECTIVE: Ms. Santiago was seen and examined at the bedside this morning. Overnight she spiked a fever of 102.3. Hospitalist and CT surgery are now underway with fever workup, including cultures of pleural fluid obtained by Dr. Agrawal this morning. She was also started on empiric vancomycin and Zosyn. She denies any chest pain or shortness of breath, nor any abdominal pain, N/V/D. She is currently on precautions after having been exposed to COVID19 from a hospital staff member, but COVID test yesterday was negative. OBJECTIVE: PHYSICAL EXAMINATION: VITAL SIGNS: see below GENERAL: alert and oriented, in no apparent distress, pleasant and conversant in full sentences. HEENT: PERRL, EOMI, Oral mucous membranes are moist without lesions. NECK: The patient has no noted JVD. No adenopathy is appreciated. No thyromegaly CHEST/LUNGS: Diminished breath sounds on the right side, no crackles, no rales, no rhonchi CHEST WALL: R pleurX catheter site clean/dry/intact with some mild crepitus HEART: Regular rate and rhythm. No murmurs, rubs, or gallops are appreciated. Distal pulses are 2+. No carotid bruits appreciated. ABDOMEN: Soft, nontender, and nondistended. Bowel sounds are positive. No organomegaly is appreciated. No masses are appreciated. There are no peritoneal signs. There is no Lennon sign. EXTREMITIES: 1+ peripheral edema. There is no focal long bone tenderness or deformity. SKIN: The patients skin is warm and dry, without rashes or lesions. PSYCHIATRIC: AAO x 3, normal mood/affect NEUROLOGIC: No obvious focal deficits IMAGING: CT CHEST 11/03: IMPRESSION: Mild/moderately improved right-sided hydropneumothorax and atelectasis. Minimal left basilar atelectasis and small pleural reaction. ASSESSMENT: This is a 75 year old female with history of metastatic right breast cancer with metastases to lungs and pleura status post chest tube drainage, CKD3, hypertension who presented with shortness of breath found to have large right pleural effusion and acute kidney injury. Nephrology's consult for management of acute kidney injury superimposed on chronic kidney disease. PLAN: 1. Fever: suspect most likely infection in pleural space (catheter?) vs respiratory infection. -Patient currently on COVID19 precautions, but has been vaccinated already -WBC up to 16.2 from 8.3 yesterday -Pleural fluid cultures pending -Blood cultures pending -CT chest with atelectasis and small pleural effusions -Continue empiric abx Vanc/Zosyn 2. Acute kidney injury superimposed on chronic kidney disease: Creatinine baseline of 1.1-1.2 -Creatinine today 1.5, stable from yesterday -No emergent need for dialysis -Lasix increased to 60mg BID 3. Hypervolemia with bilateral lower extremity edema: -~1000cc UOP yesterday without albumin/lasix -increased lasix today to 60mg BID 4. Anemia: -Hemoglobin today 8.9 from 8.5 yesterday -Transfusions per primary team 5. Hypertension: -Blood pressures have remained within normal limits 6. Hypokalemia: -resolved DISPO: fever workup, broad spectrum abx, increased diruetic Current Medications Current Medications Current Medications Medications (Trade) Dose Ordered Sig/Joseph Route PRN Reason Start Time Stop Time Status Last Admin Dose Admin Acetaminophen (Tylenol Tab) 650 mg Q6HP PRN PO T > 101.5 or JONES 10/25/20 11:05 11/03/20 00:20 Acetaminophen/ Hydrocodone Bitart ([place], Anexsia 5/325) 1 tab Q3H PRN PO MILD PAIN (PS 1-4) 10/25/20 11:05 10/31/20 12:26 DC 10/28/20 13:45 Aspirin (Ecotrin) 81 mg QHS PO 10/25/20 21:00 11/02/20 20:50 Bisacodyl (Dulcolax Suppository) 10 mg Q4HP PRN LA CONSTIPATION 10/25/20 11:05 Dextrose (Dextrose 50%) 25 ml ASDIRECTED PRN IV SEE LABEL COMMENTS 10/25/20 13:05 Dextrose/Sodium Chloride 1,000 ml @ 60 mls/hr [id number] IV 11/01/20 09:35 11/01/20 09:36 DC Dextrose/Sodium Chloride 1,000 ml @ 75 mls/hr [id number] IV 10/25/20 11:05 10/25/20 18:32 DC 10/25/20 11:05 Docusate Sodium (Colace) 100 mg BID PO 10/25/20 21:00 11/02/20 20:50 Furosemide (Lasix) 40 mg BID@09,17 PO 11/02/20 17:00 11/03/20 11:38 DC 11/03/20 09:31 Furosemide (Lasix) 60 mg BID@09,17 PO 11/03/20 17:00 Glucagon (Glucagon) 1 mg ASDIRECTED PRN SC SEE LABEL COMMENTS 10/25/20 13:05 Glucose (Glucose) 16 GM ASDIRECTED PRN PO SEE LABEL COMMENTS 10/25/20 13:05 Home Med (Med Rec Complete!) ASDIRECTED XX 10/25/20 12:20 10/25/20 12:20 DC Insulin Detemir (Levemir Insulin) 32 units QHS SC 10/25/20 21:00 10/29/20 17:39 DC 10/28/20 21:10 Insulin Detemir (Levemir Insulin) 37 units QHS KS 10/29/20 21:00 11/01/20 09:28 DC 10/31/20 20:43 Insulin Detemir (Levemir Insulin) 45 units QHS SC 11/01/20 21:00 11/02/20 09:06 DC 11/01/20 20:16 Insulin Detemir (Levemir Insulin) 55 units QHS SC 11/02/20 21:00 11/02/20 20:51 Insulin Human Lispro (HumaLOG INSULIN) See Protocol Table AC SC 10/25/20 12:00 11/03/20 09:38 Insulin Human Lispro (HumaLOG INSULIN) See Protocol Table QHS KS 10/25/20 21:00 11/02/20 20:52 Levalbuterol HCl (Xopenex Hfa) 2 puff Q2HP PRN INH SHORTNESS OF BREATH 11/03/20 08:45 Levalbuterol HCl (Xopenex Hfa) 2 puff RQ6H INH 11/03/20 08:00 Levalbuterol HCl (Xopenex Neb) 1.25 mg Q2HP PRN NEB WHEEZING 10/25/20 11:05 11/03/20 08:43 DC Levalbuterol HCl (Xopenex Neb) 1.25 mg RQ6H NEB 10/25/20 14:00 11/03/20 08:43 DC 11/03/20 07:38 Magnesium Hydroxide (Milk Of Magnesia) 30 ml DAILY PO 10/26/20 09:00 11/02/20 09:49 Miscellaneous (Unresolved Clarification Entry) SEE LABEL COMMENTS DAILY XX 10/31/20 09:00 10/31/20 12:27 DC Multivitamins (Theragram-M) 1 tab QHS PO 10/25/20 21:00 11/02/20 20:51 Ondansetron HCl (ZOFRAN INJection) 4 mg Q4HP PRN IV NAUSEA 10/25/20 11:05 10/28/20 12:50 Oxycodone/ Acetaminophen (Percocet 5mg/ 325mg Tablet) 1 tab Q4H PRN PO MODERATE PAIN (PS 5-7) 10/25/20 11:05 10/31/20 12:26 DC Oxycodone/ Acetaminophen (Percocet 5mg/ 325mg Tablet) 2 tab Q4H PRN PO SEVERE PAIN (PS 8-10) 10/25/20 11:05 10/31/20 12:26 DC Pantoprazole Sodium (Protonix) 40 mg DAILY PO 10/26/20 09:00 11/03/20 09:28 Piperacillin Sod/ Tazobactam Sod 3.375 gm/Dextrose 50 ml @ 50 mls/hr Q6H IV 11/03/20 05:00 11/03/20 10:52 Rivaroxaban (Xarelto) 20 mg DAILY@1800 PO 10/25/20 18:00 11/02/20 17:24 Simvastatin (Zocor) 20 mg QHS PO 10/25/20 21:00 11/02/20 20:50 Sodium Chloride (Saline Lock Flush) 2 ml ASDIRECTED PRN IV SEE LABEL COMMENTS 10/25/20 21:10 Sodium Chloride (Saline Lock Flush) 2 ml SLF IV 10/25/20 22:00 11/03/20 05:16 Vancomycin HCl 1000 mg/IV Miscellaneous Supplies 1 each/ Sodium Chloride 270 ml @ 270 mls/hr Q24H IV 11/03/20 06:00 11/03/20 06:43 Venlafaxine HCl (Effexor) 75 mg BID PO 10/25/20 21:00 11/03/20 09:28 Vitamin D (Vitamin D) 1,000 units QHS PO 10/25/20 21:00 11/02/20 20:51 Allergies Coded Allergies: adhesive tape (Verified Allergy, Intermediate, rash, 12/23/18) exenatide (Verified Allergy, Mild, itching, 12/23/18) VS,Fishbone, I+O VS, Fishbone, I+O Laboratory Tests 11/03/20 03:02 Vital Signs Date Time Temp Pulse Resp B/P (MAP) Pulse Ox O2 Delivery O2 Flow Rate FiO2 11/03/20 08:18 99.8 94 20 140/63 (88) 93 Room Air 10/28/20 14:15 2.0 I&O- Last 24 Hours up to 6 AM 11/03/20 06:00 Intake Total 1840 ml Output Total 610 ml Balance 1230 ml GME ATTESTATION GME ATTESTATION My faculty preceptor for this patient encounter was physically present during the encounter and was fully available. All aspects of the patient interview, examination, medical decision making process, and medical care plan development were reviewed and approved by the faculty preceptor. The faculty preceptor is aware and concurs with the plan as stated in the body of this note and will attest to such by his/her cosignature. Attending Note Attending Note Fever spikes over night T max 102.3F,leukocytosis Rt pleurex catheter. Ca breast with mets JUAN on CKD Persistent LE edema 1+ IV abx already started by med team. Cx sent from Pleural fluid. Increase LAsix 60 mg bid. Not stable for DC at this time. LESLIE NGUYEN MD Nov 03, 2020 12:29 ROBERTA BLANCA MD Nov 04, 2020 12:55
[2020-11-03] MEDS: RIVAROXABAN 20 MG TAB (XARELTO) PO SCH (17:31)
[2020-11-03] MEDS: ASPIRIN 81MG ENTERIC TABLET PO SCH (21:30)
[2020-11-03] MEDS: SIMVASTATIN 20 MG TAB PO SCH (21:30)
[2020-11-03] MEDS: MULTIVITAMINS/MINERALS THERAP 1 TAB PO SCH (21:30)
[2020-11-03] MEDS: VITAMIN D 1,000 INTERNATIONAL UNITS TABLET PO SCH (21:30)
[2020-11-03] MEDS: LEVEMIR (INSULIN DETEMIR) 1 UNITS/0.01ML SC SCH (21:31)
[2020-11-04] VITALS: BP 110/58
[2020-11-04] MEDS: LEVALBUTEROL HFA 45MCG/ACT 15 GM INHALER INH SCH ×4 (01:22→20:57)
[2020-11-04 04:00] VITALS: BP 122/50
[2020-11-04] MEDS: PIPERACILLIN/TAZOBACTAM SOD 3.375 GM in D5W MINI-BAG PLUS 50 ML IV SCH ×4 (04:57→23:04)
[2020-11-04] MEDS: VANCOMYCIN HCL 1,000 MG, VIAL MATE ADAPTER 1 EACH in NS 250 ML IV SCH (06:03)
[2020-11-04] MEDS: SLF 3 ML SYR IV SCH ×3 (06:04→22:50)
[2020-11-04 07:05] LABS: BASO % 0.1 % (0.0-1.0); EOS % 0.1 % (0.0-3.0); HEMATOCRIT 26.5 % (36.0-47.0); HEMOGLOBIN 8.3 g/dl (12.0-15.5); LYMPH # 0.9 10^3/uL (1.5-5.0); LYMPH % 12.1 % (24.0-44.0); MEAN CORPUSCULAR HEMOGLOBIN 29.2 pg (27.0-33.0); MEAN CORPUSCULAR HGB CONC 31.3 g/dl (32.0-36.5); MEAN CORPUSCULAR VOLUME 93.3 fl (80.0-96.0); MONO # 0.7 10^3/uL (0.0-0.8); MONO % 10.5 % (2.0-8.0); NEUTROPHILS # 5.4 10^3/uL (1.5-8.5); NEUTROPHILS % 76.1 % (36.0-66.0); PLATELET COUNT, AUTOMATED 306 10^3/uL (150-450); RED BLOOD COUNT 2.84 10^6/uL (4.00-5.40)
[2020-11-04 07:24] LABS: CALCIUM LEVEL 8.4 MG/DL (8.8-10.2); CREATININE FOR GFR 1.62 MG/DL (0.55-1.30); GLOMERULAR FILTRATION RATE 32.9 (>39); MAGNESIUM LEVEL 1.9 MG/DL (1.8-2.4); POTASSIUM SERUM 3.6 MEQ/L (3.5-5.1)
[2020-11-04 08:00] VITALS: BP 154/60
--- NOTE | 2020-11-04 08:03 | REP ---
INDICATION: after chest tube placement COMPARISON: 11/03/2020 TECHNIQUE: PA and lateral. FINDINGS: Allowing for variation in technique, findings are relatively stable. Right-sided pleuroparenchymal changes including hydropneumothorax as well as left basilar atelectasis and small left pleural effusion are again identified. Chest tube in stable position. Visualized portions of the cardiac silhouette are normal/stable. Skeletal structures are grossly intact. IMPRESSION: No significant change from prior examination. <Electronically signed by Rodney Panda > 11/04/20 [id number]
[2020-11-04] MEDS: VENLAFAXINE 37.5 MG TAB PO SCH ×2 (08:30→20:52)
[2020-11-04] MEDS: PANTOPRAZOLE 40MG TAB (PROTONIX) PO SCH (08:32)
[2020-11-04] MEDS: MOM 30ML SUSPENSION UDC PO SCH (08:32)
[2020-11-04] MEDS: DOCUSATE SODIUM 100MG CAPSULE PO SCH ×2 (08:32→20:53)
[2020-11-04] MEDS: HumaLOG INSULIN (NovoLOG) PER UNIT SC SCH ×4 (08:32→20:52)
[2020-11-04] MEDS: FUROSEMIDE 40 MG TAB PO SCH ×2 (08:33→16:50)
--- NOTE | 2020-11-04 09:03 | IPNPDOC ---
Text Note Date of Service The patient was seen on 11/04/20. NOTE Subjective: Patient is a 75-year-old female with a PMHx of Metastatic right breast cancer with mets to lungs and pleura, CKD3, HTN, IDDM2, DLP, Hx of DVT, who was recently admitted for a suspected strangulated umbilical hernia and she had a noted large R pleural effusion and Nghia was consulted drained it by chest tube placement on 10/02 and removal on 10/05 with reaccumulation for which he placed a pleurX catheter on 10/08 before discharge home. She has now returned with loculation of the pleural effusion with ineffective drainage by pleurX; now s/p chest tube replacement and tPA with thoracic surgery onboard. Patient was seen and examined at the bedside. Currently patient denies any chest pain or palpitations. Reports that her breathing, although does appear short has improved. Reports a mild cough yesterday but did not experience any significant coughing this morning. She denies any nausea, vomiting, abdominal pain or diarrhea. Objective: Vitals (See below) General: Patient is sitting up in bed, appears to be comfortable, is awake and alert, oriented times today HEENT: NC, AT CVS: +S1S2 Lungs: Diminished in the right lung field. No evidence of wheezing, crackles or rhonchi. Abdomen Abdomen: Abdomen is soft without any appreciated tenderness or distention Extremities: Lower extremity still reveals some pitting edema Assessment and Plan: s/p Fever / Leukocytosis - Remains hemodynamically stable and afebrile - Leukocytosis resolved - No lactic acidosis - Elevated pro-calcitonin - Blood cultures 11/03: Negative at 24 hours - Sputum culture 11/03: Pending (Gram stain Gram-positive cocci in shayy; Gram- positive rods) - Pleural fluid culture 11/03: Pending (Gram stain Gram-positive cocci in shayy) - CT Chest 11/03: Mild/moderately improved right-sided hydropneumothorax and at electasis. Minimal left basilar atelectasis and small pleural reaction. - c/w Zosyn (Day #2); Will DC vancomycin Recurrent right sided pleural effusion - Patient has a history of known malignant pleural effusions from metastatic breast cancer - CT Chest 10/27: Loculated right-sided hydropneumothorax status post Pleurx and basilar chest tube placement. Significant improvement noted since the October 24, 2020 study. - New chest tube placed by Dr. Agrawal on 10/25; removed on 10/30 - tPA pleurolysis via Pleurx catheter 10/28 - CTS on consultation JUAN / CKD3 - Evidence of fluid overload still persists - but improving - Patient has an elevated Cr - has remained relatively stable - Baseline Cr of 1.1-1.2 - Nephrology called on consultation; appreciate their input - c/w oral diuretics s/p Hyponatremia - likely 2/2 hypervolemic etiology - Improving with diuresis Normocytic anemia - possibly 2/2 renal disease - Rectal exam did revealed brown stool; not dark - Stool for occult blood negative - s/p 1 unit PRBC - Hg stable Stage IV Breast CA - Infiltrating ductal carcinoma (Dx: 2002) - CT abdomen / pelvis 10/30: Ventral hernia trans Lou abdominal fat again seen unchanged. PleurX catheter on the right. 1.9 cm low-density lesion in the liver compatible with metastatic focus. No hydronephrosis or renal calculus disease seen. No acute abdominal or pelvic abnormality. - Patient follows with Dr. Sterling of Oncology; will have outpatient follow up IDDM2 with Hyperglycemia - c/w ISS and adjusted dose of Levemir Depression - c/w venlafaxine DLP - c/w Simvastatin Hx of DVT - Vascular US 10/31: No evidence for deep venous thrombosis. - c/w full anticoagulation with Xarelto DVT prophylaxis - c/w full anticoagulation with Xarelto Disposition: - Awaiting clinical improvement VS,Rylie, I+O VS, Rylie, I+O Laboratory Tests 11/04/20 06:04 Vital Signs Date Time Temp Pulse Resp B/P (MAP) Pulse Ox O2 Delivery O2 Flow Rate FiO2 11/04/20 04:00 97.6 83 18 122/50 (74) 93 Room Air I&O- Last 24 Hours up to 6 AM 11/04/20 05:59 Intake Total 1440 ml Output Total 1200 ml Balance 240 ml EMMA LEON MD Nov 04, 2020 09:03
[2020-11-04 12:00] VITALS: BP 126/58
[2020-11-04] MEDS ORDERED: POTASSIUM CHLORIDE 10 MEQ SR TABLET PO ONE (12:00)
[2020-11-04 16:00] VITALS: BP 126/59
[2020-11-04] MEDS: RIVAROXABAN 20 MG TAB (XARELTO) PO SCH (18:09)
[2020-11-04] MEDS: IRON SUCROSE 200 MG in NS 100 ML IV SCH (18:09)
--- NOTE | 2020-11-04 19:15 | IPN ---
NEPHROLOGY PROGRESS NOTE DATE: 11/04/2020 SUBJECTIVE: The patient was seen and examined at the bedside today morning. Last 24 hour events were noted. The patient was started on antibiotics yesterday because of fevers. T-max is 105 degrees Fahrenheit since yesterday. She continues to be on a higher dose of diuretics. Creatinine is slightly bumped up, however edema is getting better. OBJECTIVE: VITAL SIGNS: Temperature is 97.7, degrees Fahrenheit, blood pressure 154/60, pulse is 84, respiratory rate of 17, saturating 94% on room air. INTAKE AND OUTPUT: Urine output recorded as 1,400 mL since overnight. Weight in the bed scale is 79.2 kg. PHYSICAL EXAMINATION: GENERAL APPEARANCE: The patient is awake, alert, oriented x3, obese body habitus, laying in bed. HEAD AND NECK: Extraocular muscles intact. Pupils are equally round and reactive to light. Mucous membranes are moist. Neck is supple. There is mildly elevated jugular venous distention. CARDIOVASCULAR: S1, S2, regular rate. EXTREMITIES: 2+ edema of the ankles. RESPIRATORY: Mildly decreased breath sounds at the bases. Right sided PleurX catheter was noted. ABDOMEN: Soft, positive bowel sounds, nontender, no organomegaly. MUSCULOSKELETAL: No clubbing, no cyanosis. Pulses are 2+. GLASS HANDLER: No focal deficits. Power is 5/5 in all extremities. LAB REVIEW: CBC showed a WBC of 7, hemoglobin 8.3, platelet count 306. BMP showed sodium 136, potassium 3.6, chloride 100, bicarbonate 28, BUN 50, creatinine is 1.6; it was 1.5 yesterday. Calcium 8.4, magnesium is 1.9. CURRENT INPATIENT MEDICATIONS: The patient's medications were all reviewed by myself. She continues to be on Lasix 60 mg p.o. twice daily. Vancomycin has been stopped. She continues to be on IV Zosyn. No other change in medications today as compared with yesterday. ASSESSMENT AND PLAN: 1. Acute kidney injury superimposed on chronic kidney disease her baseline creatinine is 1.1 to 1.2. Right now she is on a higher dose of diuretics. Creatinine is 1.6. I would continue the current dose for now. If creatinine keeps going up, then the dose will be decreased tomorrow morning. 2. Fluid overload and bilateral lower extremity edema as mentioned above, she is currently on Lasix 60 mg p.o. twice daily. Continue current dose. 3. Fever spikes and leukocytosis - The patient was started on Vancomycin and Zosyn. She is fever free now. Cultures are pending. 4. Anemia and chronic kidney disease and metastatic breast cancer - hemoglobin level is 8.3 which is lower than yesterday. She had iron deficiency on labs done on November 01. I would check and if she has not received any IV iron during his hospitalization, then I would give her IV Venofer.
[2020-11-04 20:00] VITALS: BP 133/62
[2020-11-04] MEDS: MULTIVITAMINS/MINERALS THERAP 1 TAB PO SCH (20:52)
[2020-11-04] MEDS: VITAMIN D 1,000 INTERNATIONAL UNITS TABLET PO SCH (20:52)
[2020-11-04] MEDS: ASPIRIN 81MG ENTERIC TABLET PO SCH (20:53)
[2020-11-04] MEDS: SIMVASTATIN 20 MG TAB PO SCH (20:53)
[2020-11-04] MEDS: LEVEMIR (INSULIN DETEMIR) 1 UNITS/0.01ML SC SCH (20:53)
[2020-11-05] VITALS: BP 142/66
[2020-11-05] MEDS: LEVALBUTEROL HFA 45MCG/ACT 15 GM INHALER INH SCH ×4 (02:14→20:45)
[2020-11-05 04:00] VITALS: BP 128/60
[2020-11-05 05:37] LABS: BASO % 0.1 % (0.0-1.0); HEMATOCRIT 26.9 % (36.0-47.0); HEMOGLOBIN 8.4 g/dl (12.0-15.5); MEAN CORPUSCULAR HEMOGLOBIN 29.4 pg (27.0-33.0); MEAN CORPUSCULAR HGB CONC 31.2 g/dl (32.0-36.5); MEAN CORPUSCULAR VOLUME 94.1 fl (80.0-96.0); MONO # 0.6 10^3/uL (0.0-0.8); MONO % 9.3 % (2.0-8.0); NEUTROPHILS % 74.1 % (36.0-66.0); PLATELET COUNT, AUTOMATED 335 10^3/uL (150-450); RED BLOOD COUNT 2.86 10^6/uL (4.00-5.40); WHITE BLOOD COUNT 6.8 10^3/uL (4.0-10.0)
[2020-11-05] MEDS: PIPERACILLIN/TAZOBACTAM SOD 3.375 GM in D5W MINI-BAG PLUS 50 ML IV SCH (05:54)
[2020-11-05] MEDS: SLF 3 ML SYR IV SCH ×3 (05:54→20:40)
[2020-11-05 06:02] LABS: CALCIUM LEVEL 8.6 MG/DL (8.8-10.2); CREATININE FOR GFR 1.48 MG/DL (0.55-1.30); GLOMERULAR FILTRATION RATE 36.5 (>39); MAGNESIUM LEVEL 1.8 MG/DL (1.8-2.4); POTASSIUM SERUM 3.8 MEQ/L (3.5-5.1)
[2020-11-05 07:26] VITALS: BP 130/59
--- NOTE | 2020-11-05 08:07 | IPN ---
PROGRESS NOTE DATE: 11/04/2020 SUBJECTIVE: Ms. Santiago is feeling a bit better today. She is complaining of increased sweating, however, OBJECTIVE: VITAL SIGNS: Show a T-max, however, of only 97.8 with a heart rate that ranges between 83 and 86 in sinus rhythm. Respiratory rate of 17 to 19 without the use of accessory muscles who is 93% to 94% saturated on room air and whose blood pressure is ranging between 154/60 to 110/58. INTAKE AND OUTPUT: Over the past 24 hours has been recorded as 840 in and 200 out for a positivity of 640 mL. She has had one incontinent void, however. She weighs 79.2 kg today compared to 78.6 kg yesterday. RESPIRATORY: Her lungs show some inspiratory rales at the very end of inspiration particularly on the right side. Percussion notes are full to the diaphragm. CARDIAC: Without murmurs, clicks, gallops, or rubs. I cannot feel her PMI. S1 and S2 are normal. ABDOMEN: Soft and nontender. Bowel sounds are positive. There is no hepatomegaly. No CVA tenderness. EXTREMITIES: Show marked improvement in her pretibial edema now down to trace to 1+. There is no calf tenderness. No differential swelling of the upper extremities. SKIN: Warm, dry, and perfused without cyanosis or mottling, including that of the nail beds and knees. NECK: Supple. There is no jugular venous distention. No subcutaneous emphysema. Trachea is midline. MOUTH: Shows the mucous membranes to be pink and moist. Lips and commisures are without lesions and no thrush. EYES: Show her pupils equal and reactive. Extraocular muscles are intact. Sclerae nonicteric. NEUROLOGIC: Shows II through XII intact. Normal gross motor, gross sensation intact. Gait is not tested. PSYCHIATRIC: Shows her to be awake, alert, and oriented x3 with appropriate mood and affect and conversational. LABORATORY DATA: Her white count has precipitously fallen to 7.0 from 16.2 yesterday, it is back to her baseline. Hemoglobin and hematocrit are 8.3 and 26.5. Platelet count is 306,000. Differential shows 76% neutrophils down from 91% yesterday, 12% lymphocytes, and 10% monocytes. There are no immature forms and no toxic granulations. Her chemistries today show normal electrolytes with a BUN and creatinine of 50 and 1.62 slightly up from 42 and 1.50 yesterday. Glucose is 137 with a calcium of 8.4 and a magnesium of 1.9. Her albumin yesterday was 2.2. Microbiology is still pending. Gram stain of the sputum showed a few gram-positive in rods and pairs. The pleural fluid culture gram stain showed a few gram positive in pairs. Blood cultures are negative. IMAGING DATA: Her chest x-ray today shows her lungs fully expand to the chest wall. There is still the air fluid in the small fissural loculation. There is a diffuse infiltrated haze, which is unchanged. Costophrenic angle on the right is blunted. The left is sharp, essentially is unchanged. IMPRESSION: 1. Malignant pleural effusion right side minimally loculated and resolved. 2. Metastatic breast cancer. 3. Hypertension. 4. Diabetes. 5. History of deep vein thrombosis (DVT). 6. Arthritis. 7. Acute renal injury overlying chronic renal disease plateauing. 8. Hyponatremia, resolved. 9. Anemia treated with a transfusion plateaued. 10. Fever and leukocytosis of unknown origin, improved. 11. Prior exposure to COVID. PLAN AND DISCUSSION: I will not drain the PleurX catheter today. I am not sure whether it is just a few gram positives in the pleural fluid if that would be real if they do culture out. Her urinalysis was negative for leukocyte esterase and therefore, the fever was probably not emanating from the urinary tract. She is on vancomycin and Zosyn for the present. Vancomycin is being dosed by pharmacy to account for her renal insufficiency. Will continue to observe. It may be that we may never find out what the origin of her leukocytosis was or her fever.
[2020-11-05] MEDS: IRON SUCROSE 200 MG in NS 100 ML IV SCH (08:18)
[2020-11-05] MEDS: MOM 30ML SUSPENSION UDC PO SCH (08:18)
[2020-11-05] MEDS: FUROSEMIDE 40 MG TAB PO SCH ×2 (08:19→17:20)
[2020-11-05] MEDS: VENLAFAXINE 37.5 MG TAB PO SCH ×2 (08:19→20:36)
[2020-11-05] MEDS: PANTOPRAZOLE 40MG TAB (PROTONIX) PO SCH (08:19)
[2020-11-05] MEDS: DOCUSATE SODIUM 100MG CAPSULE PO SCH ×2 (08:20→20:36)
[2020-11-05] MEDS: HumaLOG INSULIN (NovoLOG) PER UNIT SC SCH ×4 (08:20→20:34)
--- NOTE | 2020-11-05 09:22 | IPNPDOC ---
Text Note Date of Service The patient was seen on 11/05/20. NOTE Subjective: Patient is a 75-year-old female with a PMHx of Metastatic right breast cancer with mets to lungs and pleura, CKD3, HTN, IDDM2, DLP, Hx of DVT, who was recently admitted for a suspected strangulated umbilical hernia and she had a noted large R pleural effusion and [place]ghia was consulted drained it by chest tube placement on 10/02 and removal on 10/05 with reaccumulation for which he placed a pleurX catheter on 10/08 before discharge home. She has now returned with loculation of the pleural effusion with ineffective drainage by pleurX; now s/p chest tube replacement and tPA with thoracic surgery onboard. Patient was seen and examined at the bedside. Currently patient reports that if you find the reports the bleeding has had improvement. Denies any chest pain or palpitations. Has not experience any significant cough. Denies any nausea, vomiting, abdominal pain or diarrhea. Objective: Vitals (See below) General: Patient is laying in bed, appears to be comfortable, not in any acute distress, is awake, alert and oriented 3 HEENT: NC, AT CVS: +S1S2 Lungs: Air entry is improved bilaterally. There is no appreciated, rhonchi, crackles or wheezing Abdomen: Nondistended, nontender, remained soft Extremities: Her lower sternum. He still reveal 1+ pitting edema Assessment and Plan: s/p Fever / Leukocytosis - Denies any significant shortness breath or cough - Hemodynamically stable and afebrile - s/p Leukocytosis - No lactic acidosis - Elevated pro-calcitonin; will repeat today - Blood cultures 11/03: Negative at 48 hours - Sputum culture 11/03: Negative - Pleural fluid culture 11/03: Pending (Gram stain Gram-positive cocci in shayy) - CT Chest 11/03: Mild/moderately improved right-sided hydropneumothorax and atelectasis. Minimal left basilar atelectasis and small pleural reaction. - Will start Augmentin; Will DC Zosyn (Antibiotic day #3); Will DC vancomycin Recurrent right sided pleural effusion - Patient has a history of known malignant pleural effusions from metastatic breast cancer - CT Chest 10/27: Loculated right-sided hydropneumothorax status post Pleurx and basilar chest tube placement. Significant improvement noted since the October 24, 2020 study. - New chest tube placed by Dr. Agrawal on 10/25; removed on 10/30 - tPA pleurolysis via Pleurx catheter 10/28 - CTS on consultation JUAN / CKD3 - Evidence of fluid overload still persists - but improving - Patient has an elevated Cr - has remained relatively stable - Baseline Cr of 1.1-1.2 - Nephrology called on consultation; appreciate their input - c/w oral diuretics s/p Hyponatremia - likely 2/2 hypervolemic etiology - Improving with diuresis Normocytic anemia - possibly 2/2 renal disease - Rectal exam did revealed brown stool; not dark - Stool for occult blood negative - s/p 1 unit PRBC - Hg stable Stage IV Breast CA - Infiltrating ductal carcinoma (Dx: 2002) - CT abdomen / pelvis 10/30: Ventral hernia trans Lou abdominal fat again seen unchanged. PleurX catheter on the right. 1.9 cm low-density lesion in the liver compatible with metastatic focus. No hydronephrosis or renal calculus disease seen. No acute abdominal or pelvic abnormality. - Patient follows with Dr. Sterling of Oncology; will have outpatient follow up IDDM2 with Hyperglycemia - c/w ISS and adjusted dose of Levemir Depression - c/w venlafaxine DLP - c/w Simvastatin Hx of DVT - Vascular US 10/31: No evidence for deep venous thrombosis. - c/w full anticoagulation with Xarelto DVT prophylaxis - c/w full anticoagulation with Xarelto Disposition: - Awaiting clinical improvement VS,Rylie, I+O VS, Rylie, I+O Laboratory Tests 11/05/20 05:23 Vital Signs Date Time Temp Pulse Resp B/P (MAP) Pulse Ox O2 Delivery O2 Flow Rate FiO2 11/05/20 07:26 98.3 86 18 130/59 (82) 97 Room Air I&O- Last 24 Hours up to 6 AM 11/05/20 06:00 Intake Total 720 ml Output Total 950 ml Balance -230 ml EMMA LEON MD Nov 05, 2020 09:22
--- NOTE | 2020-11-05 09:23 | REP ---
INDICATION: pleural effusion. COMPARISON: Multiple the latest yesterday TECHNIQUE: PA and lateral views FINDINGS: Cardiomediastinal silhouette lung colmenares are essentially unchanged. Right upper lobe air-fluid level is unchanged. Patchy right lower lobe opacities are unchanged. Right CP angle blunting is unchanged. Left CP angle blunting is unchanged. There are no new abnormal opacities. There is no change in the osseous structures. IMPRESSION: No significant change <Electronically signed by Otto Lopez > 11/05/20 [id number]
[2020-11-05] MEDS: AUGMENTIN 875 MG TAB PO SCH ×2 (10:30→20:35)
--- NOTE | 2020-11-05 11:31 | IPNPDOC ---
Subjective General Date/Time Seen The patient was seen on 11/05/20 at 11:27. Subject Chief Complaint/History The patient is a 75-year-old female admitted with a reason for visit of Loculated Pleural. SUBJECTIVE: Ms. Santiago was seen and examined at the bedside this morning. She is no longer febrile. Thus far, her infectious workup has only revealed GP cocci in pleural fluid but nothing has grown on cultures. She denies any shortness of breath or chest pain. No n/v/d. Broad spectrum IV abx have been deescalated to oral Augmentin. She made almost 2L UOP since yesterday. OBJECTIVE: PHYSICAL EXAMINATION: VITAL SIGNS: see below GENERAL: alert and oriented, in no apparent distress, pleasant and conversant in full sentences. HEENT: PERRL, EOMI, Oral mucous membranes are moist without lesions. NECK: The patient has no noted JVD. No adenopathy is appreciated. No thyromegaly CHEST/LUNGS: Diminished breath sounds on the right side, no crackles, no rales, no rhonchi CHEST WALL: R pleurX catheter site clean/dry/intact with some mild crepitus HEART: Regular rate and rhythm. No murmurs, rubs, or gallops are appreciated. Distal pulses are 2+. No carotid bruits appreciated. ABDOMEN: Soft, nontender, and nondistended. Bowel sounds are positive. No organomegaly is appreciated. No masses are appreciated. There are no peritoneal signs. There is no Lyons sign. EXTREMITIES: 1+ peripheral edema. There is no focal long bone tenderness or deformity. SKIN: The patients skin is warm and dry, without rashes or lesions. PSYCHIATRIC: AAO x 3, normal mood/affect NEUROLOGIC: No obvious focal deficits IMAGING: CT CHEST 11/05: FINDINGS: Cardiomediastinal silhouette lung colmenares are essentially unchanged. Right upper lobe air-fluid level is unchanged. Patchy right lower lobe opacities are unchanged. Right CP angle blunting is unchanged. Left CP angle blunting is unchanged. There are no new abnormal opacities. There is no change in the osseous structures. IMPRESSION: No significant change ASSESSMENT: This is a 75 year old female with history of metastatic right breast cancer with metastases to lungs and pleura status post chest tube drainage, CKD3, hypertension who presented with shortness of breath found to have large right pleural effusion and acute kidney injury. Nephrology's consult for management of acute kidney injury superimposed on chronic kidney disease. PLAN: 1. Fever: suspect most likely infection in pleural space (catheter?) vs respiratory infection. -Patient currently on COVID19 precautions, but has been vaccinated already -WBC WNL today -Pleural fluid cultures pending, but GP cocci found -Blood cultures pending -CT chest with atelectasis and small pleural effusions -s/p Vanc/Zosyn now on PO Augmentin 2. Acute kidney injury superimposed on chronic kidney disease: Creatinine baseline of 1.1-1.2 -Creatinine today 1.48, improved from 1.62 -No emergent need for dialysis -Continue IV Lasix 60mg BID 3. Hypervolemia with bilateral lower extremity edema: -Continue lasix, no longer need for albumin 4. Anemia: -Hemoglobin today 8.4, stable -Transfusions per primary team 5. Hypertension: -Blood pressures have remained within normal limits 6. Hypokalemia: -resolved DISPO: Continue IV Lasix 60mg BID Current Medications Current Medications Current Medications Medications (Trade) Dose Ordered Sig/Joseph Route PRN Reason Start Time Stop Time Status Last Admin Dose Admin Acetaminophen (Tylenol Tab) 650 mg Q6HP PRN PO T > 101.5 or JONES 10/25/20 11:05 11/03/20 17:32 Acetaminophen/ Hydrocodone Bitart (Rose, Anexsia 5/325) 1 tab Q3H PRN PO MILD PAIN (PS 1-4) 10/25/20 11:05 10/31/20 12:26 DC 10/28/20 13:45 Amoxicillin/ Clavulanate Potassium (Augmentin) 875 mg BID PO 11/05/20 09:00 11/05/20 10:30 Aspirin (Ecotrin) 81 mg QHS PO 10/25/20 21:00 11/04/20 20:53 Bisacodyl (Dulcolax Suppository) 10 mg Q4HP PRN AL CONSTIPATION 10/25/20 11:05 Dextrose (Dextrose 50%) 25 ml ASDIRECTED PRN IV SEE LABEL COMMENTS 10/25/20 13:05 Dextrose/Sodium Chloride 1,000 ml @ 60 mls/hr [id number] IV 11/01/20 09:35 11/01/20 09:36 DC Dextrose/Sodium Chloride 1,000 ml @ 75 mls/hr [id number] IV 10/25/20 11:05 10/25/20 18:32 DC 10/25/20 11:05 Docusate Sodium (Colace) 100 mg BID PO 10/25/20 21:00 11/04/20 20:53 Furosemide (Lasix) 40 mg BID@09,17 PO 11/02/20 17:00 11/03/20 11:38 DC 11/03/20 09:31 Furosemide (Lasix) 60 mg BID@,17 PO 11/03/20 17:00 11/05/20 08:19 Glucagon (Glucagon) 1 mg ASDIRECTED PRN SC SEE LABEL COMMENTS 10/25/20 13:05 Glucose (Glucose) 16 GM ASDIRECTED PRN PO SEE LABEL COMMENTS 10/25/20 13:05 Home Med (Med Rec Complete!) ASDIRECTED XX 10/25/20 12:20 10/25/20 12:20 DC Insulin Detemir (Levemir Insulin) 32 units QHS SC 10/25/20 21:00 10/29/20 17:39 DC 10/28/20 21:10 Insulin Detemir (Levemir Insulin) 37 units QHS SC 10/29/20 21:00 11/01/20 09:28 DC 10/31/20 20:43 Insulin Detemir (Levemir Insulin) 45 units QHS SC 11/01/20 21:00 11/02/20 09:06 DC 11/01/20 20:16 Insulin Detemir (Levemir Insulin) 55 units QHS SC 11/02/20 21:00 11/04/20 20:53 Insulin Human Lispro (HumaLOG INSULIN) See Protocol Table AC SC 10/25/20 12:00 11/05/20 08:20 Insulin Human Lispro (HumaLOG INSULIN) See Protocol Table QHS SC 10/25/20 21:00 11/04/20 20:52 Iron 200 mg/ Sodium Chloride 110 ml @ 110 mls/hr DAILY IV 11/04/20 17:00 11/06/20 09:59 11/05/20 08:18 Levalbuterol HCl (Xopenex Hfa) 2 puff Q2HP PRN INH SHORTNESS OF BREATH 11/03/20 08:45 Levalbuterol HCl (Xopenex Hfa) 2 puff RQ6H INH 11/03/20 08:00 11/05/20 06:21 Levalbuterol HCl (Xopenex Neb) 1.25 mg Q2HP PRN NEB WHEEZING 10/25/20 11:05 11/03/20 08:43 DC Levalbuterol HCl (Xopenex Neb) 1.25 mg RQ6H NEB 10/25/20 14:00 11/03/20 08:43 DC 11/03/20 07:38 Magnesium Hydroxide (Milk Of Magnesia) 30 ml DAILY PO 10/26/20 09:00 11/02/20 09:49 Miscellaneous (Unresolved Clarification Entry) SEE LABEL COMMENTS DAILY XX 10/31/20 09:00 10/31/20 12:27 DC Multivitamins (Theragram-M) 1 tab QHS PO 10/25/20 21:00 11/04/20 20:52 Ondansetron HCl (ZOFRAN INJection) 4 mg Q4HP PRN IV NAUSEA 10/25/20 11:05 10/28/20 12:50 Oxycodone/ Acetaminophen (Percocet 5mg/ 325mg Tablet) 1 tab Q4H PRN PO MODERATE PAIN (PS 5-7) 10/25/20 11:05 10/31/20 12:26 DC Oxycodone/ Acetaminophen (Percocet 5mg/ 325mg Tablet) 2 tab Q4H PRN PO SEVERE PAIN (PS 8-10) 10/25/20 11:05 10/31/20 12:26 DC Pantoprazole Sodium (Protonix) 40 mg DAILY PO 10/26/20 09:00 11/05/20 08:19 Piperacillin Sod/ Tazobactam Sod 3.375 gm/Dextrose 50 ml @ 50 mls/hr Q6H IV 11/03/20 05:00 11/05/20 09:11 DC 11/05/20 05:54 Rivaroxaban (Xarelto) 20 mg DAILY@1800 PO 10/25/20 18:00 11/04/20 18:09 Simvastatin (Zocor) 20 mg QHS PO 10/25/20 21:00 11/04/20 20:53 Sodium Chloride (Saline Lock Flush) 2 ml ASDIRECTED PRN IV SEE LABEL COMMENTS 10/25/20 21:10 Sodium Chloride (Saline Lock Flush) 2 ml SLF IV 10/25/20 22:00 11/05/20 05:54 Vancomycin HCl 1000 mg/IV Miscellaneous Supplies 1 each/ Sodium Chloride 270 ml @ 270 mls/hr Q24H IV 11/03/20 06:00 11/04/20 07:11 DC 11/04/20 06:03 Venlafaxine HCl (Effexor) 75 mg BID PO 10/25/20 21:00 11/05/20 08:19 Vitamin D (Vitamin D) 1,000 units QHS PO 10/25/20 21:00 11/04/20 20:52 Allergies Coded Allergies: adhesive tape (Verified Allergy, Intermediate, rash, 12/23/18) exenatide (Verified Allergy, Mild, itching, 12/23/18) VS,Fishbone, I+O VS, Fishbone, I+O Laboratory Tests 11/05/20 05:23 Vital Signs Date Time Temp Pulse Resp B/P (MAP) Pulse Ox O2 Delivery O2 Flow Rate FiO2 11/05/20 07:26 98.3 86 18 130/59 (82) 97 Room Air l I&O- Last 24 Hours up to 6 AM 11/05/20 06:00 Intake Total 720 ml Output Total 950 ml Balance -230 ml GME ATTESTATION GME ATTESTATION My faculty preceptor for this patient encounter was physically present during the encounter and was fully available. All aspects of the patient interview, examination, medical decision making process, and medical care plan development were reviewed and approved by the faculty preceptor. The faculty preceptor is aware and concurs with the plan as stated in the body of this note and will atte st to such by his/her cosignature. LESLIE NGUYEN MD Nov 05, 2020 11:31
[2020-11-05 11:46] VITALS: BP 132/63
[2020-11-05 15:13] VITALS: BP 126/61
[2020-11-05] MEDS: RIVAROXABAN 20 MG TAB (XARELTO) PO SCH (17:20)
[2020-11-05 20:00] VITALS: BP 127/61
[2020-11-05] MEDS: LEVEMIR (INSULIN DETEMIR) 1 UNITS/0.01ML SC SCH (20:35)
[2020-11-05] MEDS: VITAMIN D 1,000 INTERNATIONAL UNITS TABLET PO SCH (20:37)
[2020-11-05] MEDS: ASPIRIN 81MG ENTERIC TABLET PO SCH (20:37)
[2020-11-05] MEDS: SIMVASTATIN 20 MG TAB PO SCH (20:37)
[2020-11-05] MEDS: MULTIVITAMINS/MINERALS THERAP 1 TAB PO SCH (20:38)
[2020-11-06] VITALS: BP 133/63
[2020-11-06] MEDS: LEVALBUTEROL HFA 45MCG/ACT 15 GM INHALER INH SCH ×3 (02:49→13:21)
[2020-11-06 04:00] VITALS: BP 139/65
[2020-11-06 05:39] LABS: BASO % 0.3 % (0.0-1.0); HEMATOCRIT 27.2 % (36.0-47.0); HEMOGLOBIN 8.6 g/dl (12.0-15.5); LYMPH # 1.2 10^3/uL (1.5-5.0); LYMPH % 17.9 % (24.0-44.0); MEAN CORPUSCULAR HEMOGLOBIN 29.6 pg (27.0-33.0); MEAN CORPUSCULAR HGB CONC 31.6 g/dl (32.0-36.5); MEAN CORPUSCULAR VOLUME 93.5 fl (80.0-96.0); MONO # 0.7 10^3/uL (0.0-0.8); MONO % 10.8 % (2.0-8.0); NEUTROPHILS # 4.5 10^3/uL (1.5-8.5); PLATELET COUNT, AUTOMATED 323 10^3/uL (150-450); RED BLOOD COUNT 2.91 10^6/uL (4.00-5.40); WHITE BLOOD COUNT 6.6 10^3/uL (4.0-10.0)
[2020-11-06] MEDS: SLF 3 ML SYR IV SCH (06:00)
[2020-11-06 06:08] LABS: CALCIUM LEVEL 8.1 MG/DL (8.8-10.2); CREATININE FOR GFR 1.3 MG/DL (0.55-1.30); GLOMERULAR FILTRATION RATE 42.4 (>39); MAGNESIUM LEVEL 1.9 MG/DL (1.8-2.4)
[2020-11-06] MEDS: HumaLOG INSULIN (NovoLOG) PER UNIT SC SCH ×2 (07:30→12:02)
[2020-11-06 07:41] VITALS: BP 144/78
[2020-11-06] MEDS ORDERED: FERROUS SULFATE 325MG TAB PO SCH (09:00)
[2020-11-06] MEDS: MOM 30ML SUSPENSION UDC PO SCH (09:00)
[2020-11-06] MEDS: IRON SUCROSE 200 MG in NS 100 ML IV SCH (09:00)
[2020-11-06] MEDS: VENLAFAXINE 37.5 MG TAB PO SCH (10:02)
[2020-11-06] MEDS: DOCUSATE SODIUM 100MG CAPSULE PO SCH (10:02)
[2020-11-06] MEDS: PANTOPRAZOLE 40MG TAB (PROTONIX) PO SCH (10:02)
[2020-11-06] MEDS: FUROSEMIDE 40 MG TAB PO SCH (10:03)
[2020-11-06] MEDS: AUGMENTIN 875 MG TAB PO SCH (10:03)
[2020-11-06] MEDS ORDERED: PILL CUTTER 1 EACH XX PRN (10:05)
[2020-11-06] MEDS ORDERED: AMOX875T2 PO (10:38)
[2020-11-06] MEDS ORDERED: FURO40TA2 PO (10:38)
[2020-11-06 11:35] VITALS: BP 144/68
--- NOTE | 2020-11-06 15:44 | IPNPDOC ---
Subjective General Date/Time Seen The patient was seen on 11/06/20 at 15:41. Subject Chief Complaint/History The patient is a 75-year-old female admitted with a reason for visit of Loculated Pleural. SUBJECTIVE: Ms. Santiago was seen and examined at the bedside this morning. She feels well today, ready to go home. She was instructed that she will need to continue taking oral diuretics when she is discharged and will need to follow up with Nephrology in the outpatient setting. Her pleural fluid culture grew a gram positive cocci now being covered by oral antibiotics. She denies any worsened lower extremity edema. OBJECTIVE: PHYSICAL EXAMINATION: VITAL SIGNS: see below GENERAL: alert and oriented, in no apparent distress, pleasant and conversant in full sentences. HEENT: PERRL, EOMI, Oral mucous membranes are moist without lesions. NECK: The patient has no noted JVD. No adenopathy is appreciated. No thyromegaly CHEST/LUNGS: Diminished breath sounds on the right side, no crackles, no rales, no rhonchi CHEST WALL: R pleurX catheter site clean/dry/intact with some mild crepitus HEART: Regular rate and rhythm. No murmurs, rubs, or gallops are appreciated. Distal pulses are 2+. No carotid bruits appreciated. ABDOMEN: Soft, nontender, and nondistended. Bowel sounds are positive. No organomegaly is appreciated. No masses are appreciated. There are no peritoneal signs. There is no Felton sign. EXTREMITIES: 1+ peripheral edema. There is no focal long bone tenderness or deformity. SKIN: The patients skin is warm and dry, without rashes or lesions. PSYCHIATRIC: AAO x 3, normal mood/affect NEUROLOGIC: No obvious focal deficits IMAGING: CT CHEST 11/05: FINDINGS: Cardiomediastinal silhouette lung colmenares are essentially unchanged. Right upper lobe air-fluid level is unchanged. Patchy right lower lobe opacities are unchanged. Right CP angle blunting is unchanged. Left CP angle blunting is unchanged. There are no new abnormal opacities. There is no change in the osseous structures. 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 Nephrology's consult for management of acute kidney injury superimposed on chronic kidney disease. PLAN: 1. Fever: suspect most likely infection in pleural space -Patient has been afebrile >48 hours -Pleural fluid culture grew Kocura Rosea, gram positive -WBC WNL today -Blood cultures negative -CT chest with atelectasis and small pleural effusions -s/p Vanc/Zosyn now on PO Augmentin 2. Acute kidney injury superimposed on chronic kidney disease: Creatinine baseline of 1.1-1.2 -Creatinine improved today to 1.3 -Plan to send home on PO Lasix 60mg BID 3. Hypervolemia with bilateral lower extremity edema: -Continue lasix, no longer need for albumin 4. Anemia: -Hemoglobin today 8.6, stable -Transfusions per primary team 5. Hypertension: -Blood pressures have remained within normal limits 6. Hypokalemia: -resolved DISPO: D/C home on PO Lasix 60mg BID Current Medications Current Medications Current Medications Medications (Trade) Dose Ordered Sig/Joseph Route PRN Reason Start Time Stop Time Status Last Admin Dose Admin Acetaminophen (Tylenol Tab) 650 mg Q6HP PRN PO T > 101.5 or JONES 10/25/20 11:05 11/06/20 14:21 DC 11/03/20 17:32 Acetaminophen/ Hydrocodone Bitart ([place], Anexsia 5/325) 1 tab Q3H PRN PO MILD PAIN (PS 1-4) 10/25/20 11:05 10/31/20 12:26 DC 10/28/20 13:45 Amoxicillin/ Clavulanate Potassium (Augmentin) 875 mg BID PO 11/05/20 09:00 11/06/20 14:21 DC 11/06/20 10:03 Aspirin (Ecotrin) 81 mg QHS PO 10/25/20 21:00 11/06/20 14:21 DC 11/05/20 20:37 Bisacodyl (Dulcolax Suppository) 10 mg Q4HP PRN NM CONSTIPATION 10/25/20 11:05 11/06/20 14:21 DC Dextrose (Dextrose 50%) 25 ml ASDIRECTED PRN IV SEE LABEL COMMENTS 10/25/20 13:05 11/06/20 14:21 DC Dextrose/Sodium Chloride 1,000 ml @ 60 mls/hr [id number] IV 11/01/20 09:35 11/01/20 09:36 DC Dextrose/Sodium Chloride 1,000 ml @ 75 mls/hr [id number] IV 10/25/20 11:05 10/25/20 18:32 DC 10/25/20 11:05 Docusate Sodium (Colace) 100 mg BID PO 10/25/20 21:00 11/06/20 14:21 DC 11/06/20 10:02 Ferrous Sulfate (Ferrous Sulfate) 325 mg TID PO 11/06/20 09:00 11/06/20 14:21 DC 11/06/20 11:44 Furosemide (Lasix) 40 mg BID@,17 PO 11/02/20 17:00 11/03/20 11:38 DC 11/03/20 09:31 Furosemide (Lasix) 60 mg BID@,17 PO 11/03/20 17:00 11/06/20 14:21 DC 11/06/20 10:03 Glucagon (Glucagon) 1 mg ASDIRECTED PRN SC SEE LABEL COMMENTS 10/25/20 13:05 11/06/20 14:21 DC Glucose (Glucose) 16 GM ASDIRECTED PRN PO SEE LABEL COMMENTS 10/25/20 13:05 11/06/20 14:21 DC Home Med (Med Rec Complete!) ASDIRECTED XX 10/25/20 12:20 10/25/20 12:20 DC Insulin Detemir (Levemir Insulin) 32 units QHS SC 10/25/20 21:00 10/29/20 17:39 DC 10/28/20 21:10 Insulin Detemir (Levemir Insulin) 37 units QHS SC 10/29/20 21:00 11/01/20 09:28 DC 10/31/20 20:43 Insulin Detemir (Levemir Insulin) 45 units QHS SC 11/01/20 21:00 11/02/20 09:06 DC 11/01/20 20:16 Insulin Detemir (Levemir Insulin) 55 units QHS SC 11/02/20 21:00 11/06/20 14:21 DC 11/05/20 20:35 Insulin Human Lispro (HumaLOG INSULIN) See Protocol Table AC SC 10/25/20 12:00 11/06/20 14:21 DC 11/06/20 12:02 Insulin Human Lispro (HumaLOG INSULIN) See Protocol Table QHS SC 10/25/20 21:00 11/06/20 14:21 DC 11/05/20 20:34 Iron 200 mg/ Sodium Chloride 110 ml @ 110 mls/hr DAILY IV 11/04/20 17:00 11/06/20 09:59 DC 11/05/20 08:18 Levalbuterol HCl (Xopenex Hfa) 2 puff Q2HP PRN INH SHORTNESS OF BREATH 11/03/20 08:45 11/06/20 14:21 DC Levalbuterol HCl (Xopenex Hfa) 2 puff RQ6H INH 11/03/20 08:00 11/06/20 14:21 DC 11/06/20 13:21 Levalbuterol HCl (Xopenex Neb) 1.25 mg Q2HP PRN NEB WHEEZING 10/25/20 11:05 11/03/20 08:43 DC Levalbuterol HCl (Xopenex Neb) 1.25 mg RQ6H NEB 10/25/20 14:00 11/03/20 08:43 DC 11/03/20 07:38 Magnesium Hydroxide (Milk Of Magnesia) 30 ml DAILY PO 10/26/20 09:00 11/06/20 14:21 DC 11/02/20 09:49 Miscellaneous (Unresolved Clarification Entry) SEE LABEL COMMENTS DAILY XX 10/31/20 09:00 10/31/20 12:27 DC Multivitamins (Theragram-M) 1 tab QHS PO 10/25/20 21:00 11/06/20 14:21 DC 11/05/20 20:38 Ondansetron HCl (ZOFRAN INJection) 4 mg Q4HP PRN IV NAUSEA 10/25/20 11:05 11/06/20 14:21 DC 10/28/20 12:50 Oxycodone/ Acetaminophen (Percocet 5mg/ 325mg Tablet) 1 tab Q4H PRN PO MODERATE PAIN (PS 5-7) 10/25/20 11:05 10/31/20 12:26 DC Oxycodone/ Acetaminophen (Percocet 5mg/ 325mg Tablet) 2 tab Q4H PRN PO SEVERE PAIN (PS 8-10) 10/25/20 11:05 10/31/20 12:26 DC Pantoprazole Sodium (Protonix) 40 mg DAILY PO 10/26/20 09:00 11/06/20 14:21 DC 11/06/20 10:02 Piperacillin Sod/ Tazobactam Sod 3.375 gm/Dextrose 50 ml @ 50 mls/hr Q6H IV 11/03/20 05:00 11/05/20 09:11 DC 11/05/20 05:54 Rivaroxaban (Xarelto) 20 mg DAILY@1800 PO 10/25/20 18:00 11/06/20 14:21 DC 11/05/20 17:20 Simvastatin (Zocor) 20 mg QHS PO 10/25/20 21:00 11/06/20 14:21 DC 11/05/20 20:37 Sodium Chloride (Saline Lock Flush) 2 ml ASDIRECTED PRN IV SEE LABEL COMMENTS 10/25/20 21:10 11/06/20 14:21 DC Sodium Chloride (Saline Lock Flush) 2 ml SLF IV 10/25/20 22:00 11/06/20 14:21 DC 11/06/20 06:00 Vancomycin HCl 1000 mg/IV Miscellaneous Supplies 1 each/ Sodium Chloride 270 ml @ 270 mls/hr Q24H IV 11/03/20 06:00 11/04/20 07:11 DC 11/04/20 06:03 Venlafaxine HCl (Effexor) 75 mg BID PO 10/25/20 21:00 11/06/20 14:21 DC 11/06/20 10:02 Vitamin D (Vitamin D) 1,000 units QHS PO 10/25/20 21:00 11/06/20 14:21 DC 11/05/20 20:37 Allergies Coded Allergies: adhesive tape (Verified Allergy, Intermediate, rash, 12/23/18) exenatide (Verified Allergy, Mild, itching, 12/23/18) VS,Tristonbone, I+O VS, Fishbone, I+O Laboratory Tests 11/06/20 05:04 Vital Signs Date Time Temp Pulse Resp B/P (MAP) Pulse Ox O2 Delivery O2 Flow Rate FiO2 11/06/20 11:35 97.7 85 18 144/68 (93) 98 Room Air I&O- Last 24 Hours up to 6 AM 11/06/20 06:00 Intake Total 1680 ml Output Total 2605 ml Balance -925 ml GME ATTESTATION GME ATTESTATION My faculty preceptor for this patient encounter was physically present during the encounter and was fully available. All aspects of the patient interview, examination, medical decision making process, and medical care plan development were reviewed and approved by the faculty preceptor. The faculty preceptor is aware and concurs with the plan as stated in the body of this note and will attest to such by his/her cosignature. LESLIE NGUYEN MD Nov 06, 2020 15:44
== END 2020-11-06 14:15 | disposition home health service (06) | DRG 598 ==
LOC: M PCU 11:38
PROVIDERS: ADMIT Thoracic Surgery (Cardiothoracic Vascular Surgery); ATTEND Internal Medicine
PROC: 0W9930Z Drainage of Right Pleural Cavity with Drainage Device, Percutaneous Approach (ICD-10-PCS; principal; 2020-10-28)
PROC: 30233N1 Transfusion of Nonautologous Red Blood Cells into Peripheral Vein, Percutaneous Approach (ICD-10-PCS; 2020-11-01)
DX: C50.911 Malignant neoplasm of unspecified site of right female breast (principal); C78.00 Secondary malignant neoplasm of unspecified lung; N17.9 Acute kidney failure, unspecified; E87.1 Hypo-osmolality and hyponatremia; C78.7 Secondary malignant neoplasm of liver and intrahepatic bile duct; J91.0 Malignant pleural effusion; N18.30 Chronic kidney disease, stage 3 unspecified; I12.9 Hypertensive chronic kidney disease with stage 1 through stage 4 chronic kidney disease, or unspecified chronic kidney disease; E11.65 Type 2 diabetes mellitus with hyperglycemia; E11.22 Type 2 diabetes mellitus with diabetic chronic kidney disease; J45.909 Unspecified asthma, uncomplicated; F32.9 Major depressive disorder, single episode, unspecified; Z98.41 Cataract extraction status, right eye; Z98.42 Cataract extraction status, left eye; Z79.82 Long term (current) use of aspirin; Z79.899 Other long term (current) drug therapy; Z88.8 Allergy status to other drugs, medicaments and biological substances; M19.90 Unspecified osteoarthritis, unspecified site; E78.5 Hyperlipidemia, unspecified; D63.1 Anemia in chronic kidney disease; E87.70 Fluid overload, unspecified; E87.6 Hypokalemia

== ENCOUNTER 2020-12-11 13:41 | Inpatient (IN) | payer MEDICARE ==
[~2020-12-11] VITALS: Ht 160 cm; Wt 74.5 kg
[~2020-12-11 13:41] MED LIST changes: +AMOX875T2 PO; +FURO40TA2 PO
[2020-12-11 14:49] LABS: BASO % 0.3 % (0.0-1.0); EOS % 0.6 % (0.0-3.0); HEMATOCRIT 35.6 % (36.0-47.0); HEMOGLOBIN 12.1 g/dl (12.0-15.5); LYMPH # 1.2 10^3/uL (1.5-5.0); LYMPH % 18.7 % (24.0-44.0); MEAN CORPUSCULAR HEMOGLOBIN 30.6 pg (27.0-33.0); MEAN CORPUSCULAR VOLUME 89.9 fl (80.0-96.0); MONO # 0.4 10^3/uL (0.0-0.8); MONO % 5.8 % (2.0-8.0); NEUTROPHILS # 4.7 10^3/uL (1.5-8.5); NEUTROPHILS % 74.1 % (36.0-66.0); PLATELET COUNT, AUTOMATED 188 10^3/uL (150-450); RED BLOOD COUNT 3.96 10^6/uL (4.00-5.40); WHITE BLOOD COUNT 6.4 10^3/uL (4.0-10.0)
--- NOTE | 2020-12-11 15:04 | REP ---
INDICATION: DYSPNEA/COUGH COMPARISON: 11/05/2020 TECHNIQUE: Portable AP view of the chest FINDINGS: Right-sided chest tube is identified with right lower lobe airspace disease and small fluid level suggesting small residual pleural effusion. Mediastinum and cardiac silhouette are normal. Left hemithorax is well aerated and clear. Skeletal structures are intact. IMPRESSION: Right lower lobe airspace disease and small pleural effusion. Findings appear improved when compared to prior examination. Recently placed right-sided chest tube identified. <Electronically signed by Rodney Panda > 12/11/20 1500
[2020-12-11 15:22] LABS: ALT/SGPT 15 U/L (12-78); BILIRUBIN,DIRECT 0.1 MG/DL (0.0-0.2); BILIRUBIN,TOTAL 0.5 MG/DL (0.2-1.0); BLOOD UREA NITROGEN 23 MG/DL (7-18); CALCIUM LEVEL 9.5 MG/DL (8.8-10.2); CARBON DIOXIDE LEVEL 31 MEQ/L (21-32); CHLORIDE LEVEL 95 MEQ/L (98-107); CK-MB VALUE MASS 1.3 NG/ML (<3.6); CPK CREATINE PHOSPHOKINASE 66 U/L (26-192); CREATININE FOR GFR 1.29 MG/DL (0.55-1.30); GLOMERULAR FILTRATION RATE 42.8 (>39); GLUCOSE, FASTING 375 MG/DL (70-100); MB/CK RELATIVE INDEX 1.97 (< OR =4); POTASSIUM SERUM 3.8 MEQ/L (3.5-5.1); SODIUM LEVEL 132 MEQ/L (136-145); TOTAL PROTEIN 6.8 GM/DL (6.4-8.2); TROPONIN I < 0.02 NG/ML (< 0.10)
[2020-12-11] MEDS ORDERED: FUROSEMIDE 20 MG TAB PO SCH (16:00)
[2020-12-11] MEDS ORDERED: ISOVUE-370 76% 100ML VIAL As Ordered ONE (16:04)
--- NOTE | 2020-12-11 16:23 | REP ---
INDICATION: expressive aphasia COMPARISON: MRI dated 10/24/2016 TECHNIQUE: Axial noncontrast images from the skull base to the thoracic inlet with coronal reformations. This CT examination was performed using the following dose reduction techniques: Automated exposure control, adjustment of mA and/or kv according to the patient's size, and use of iterative reconstruction technique. FINDINGS: Atrophy with periventricular leukomalacia and microvascular ischemic changes are appreciated. The ventricles and sulci are symmetric. Sanchez-white differentiation is maintained. There is no evidence for acute intracranial hemorrhage, mass/mass effect, pathology or infarction. No extra-axial fluid collection. Calvarium is intact. Paranasal sinuses and mastoid air cells are clear. IMPRESSION: Atrophy and microvascular ischemic changes. No acute intracranial hemorrhage, infarction, or mass/mass effect. <Electronically signed by Rodney Panda > 12/11/20 [id number]
--- NOTE | 2020-12-11 16:36 | REP ---
INDICATION: expressive aphasia COMPARISON: 11/03/2020 TECHNIQUE: Axial contrast enhanced images from the thoracic inlet to the upper abdomen using pulmonary embolus technique with multiplanar re-formations. 75 ml Isovue 370 intravenous contrast material administered without complication. This CT examination was performed using the following dose reduction techniques: Automated exposure control, adjustment of mA and/or kv according to the patient's size, and use of iterative reconstruction technique. FINDINGS: Satisfactory enhancement of the pulmonary vasculature is achieved and no filling defects are identified to suggest pulmonary embolus. Thoracic aorta is without aneurysm or dissection. No cardiomegaly or pericardial effusion. A right-sided chest tube is identified in stable position and a moderate right pleural effusion is again identified which appears slightly increased in size from prior examination along with right lower lobe atelectasis. Associated mediastinal adenopathy is suggested and similar to prior examination. IMPRESSION: No evidence for pulmonary embolus. Moderate right pleural effusion and right basilar atelectasis slightly increased from prior examination despite right-sided chest tube in stable position. <Electronically signed by Rodney Panda > 12/11/20 [id number]
[2020-12-11 16:41] LABS: NT-PRO BNP 5302 PG/ML (<450)
[2020-12-11] MEDS ORDERED: FURO40TA2 PO (18:06)
[2020-12-11] MEDS ORDERED: ACETAMINOPHEN 650MG ER TAB (TYLENOL ARTHRITIS) PO PRN (18:40)
[2020-12-11] MEDS ORDERED: DEXTROSE 50% 50 ML SYRINGE IV PRN (18:40)
[2020-12-11] MEDS ORDERED: GLUCAGON INJ 1MG VIAL SC PRN (18:40)
[2020-12-11] MEDS ORDERED: GLUCOSE 4GM CHEW TABLET PO PRN (18:40)
[2020-12-11] MEDS ORDERED: ACETAMINOPHEN TAB 650MG DOSE (2X325MG) PO PRN (18:40)
[2020-12-11 18:55] LABS: RSV AMPLIFICATION NEGATIVE (NEGATIVE)
[2020-12-11] MEDS ORDERED: hydrALAZINE 20MG/ML 1ML VIAL (J0360 PER 20MG) IV PRN (19:10)
--- NOTE | 2020-12-11 19:27 | HPEPDOC ---
General Date of Admission 12/11/20 Date of Service: Dec 11, 2020 Chief Complaint The patient is a 75-year-old female admitted with a reason for visit of Sob/Chestpain/Drainage Problem. History of Present Illness Patient is 75 years old female with past medical history of metastatic breast cancer with metastasis to the pleura, CKD3, HTN, IDDM2, DLP, Hx of DVT presented to the hospital with increased shortness of breath and expressive aphasia. Patient stated that after discharge on 10/25/2020, she was discharged with Pleurx catheter due to recurrent right pleural effusion, her visiting nurse per iodically drained right pleural fluid . Patient visited [place] 2 weeks ago there her daughter lives and stated that she developed shortness of breath, she went to the hospital and found to have large right pleural effusion which was drained. After that time her pleural effusion was not drained. Patient subsequently developed increased shortness of breath, generalized weakness. Also she stated that she became more forgetful and since Thursday she has been having difficulties to express herself verbally. However when I saw her I did not notice expressive aphasia. Also patient reported increased leg swelling and orthopnea. Patient doesn't have any fever, chills, diarrhea. In ER patient was found to have systolic blood pressure elevated to 209, creatinine 1.29, BNP 5302, glucose level of 375. CT showed No evidence for pulmonary embolus. Moderate right pleural effusion and right basilar atelectasis slightly increased from prior examination despite right-sided chest tube in stable position. Home Medications Scheduled Aspirin (Aspirin EC) 81 Mg Tablet.dr, 81 MG PO QHS, (Reported) Cholecalciferol (Vitamin D3) (Vitamin D3) 1,000 Unit Tablet, 1,000 UNITS PO QHS, (Reported) Fulvestrant (Faslodex) 250 Mg/5 Ml Syringe, 500 MG IM QMONTH, (Reported) Furosemide (Furosemide) 40 Mg Tablet, 60 MG PO BID, (Reported) 0900, 1600 Insulin Glargine,Hum.rec.anlog (Basaglar Kwikpen U-100) 100 Unit/1 Ml Insuln.pen, 32 UNIT SC QHS, (Reported) Iron Ps Complex/B12/Folic Acid (Poly-Iron 150 Forte Capsule) 1 Each Capsule, 1 CAP PO QHS, (Reported) Liraglutide (Victoza 2-Juan Carlos) 0.6 Mg/0.1 Ml Pen.injctr, 1.2 MG SC QHS, (Reported) Rivaroxaban (Xarelto) 20 Mg Tablet, 20 MG PO QHS, (Reported) Simvastatin (Simvastatin) 20 Mg Tab, 20 MG PO QHS, (Reported) Venlafaxine HCl (Venlafaxine HCl) 75 Mg Tablet, 75 MG PO BID, (Reported) Scheduled PRN Acetaminophen (Tylenol Arthritis) 650 Mg Tablet.er, 650 MG PO Q8H PRN for PAIN, (Reported) Allergies Coded Allergies: adhesive tape (Verified Allergy, Intermediate, rash, 12/23/18) exenatide (Verified Allergy, Mild, itching, 12/23/18) Past Medical History Medical History Invasive ductal carcinoma of the right breast, 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 with malignant right pleural effusion and there is nodular pleural thickening s/p R pleurX CKD stage 3 DM H/O DVT HLD depression Dizziness HTN Asthma Surgical History Right breast lumpectomy tubal ligation bilateral cataract surgery Chest tube and pleurX catheter placement Family History FATHER: , LIVER DISEASE MOTHER: , GI BLEED DAUGHTER HAS MS Social History * Smoker: Denies Alcohol: Denies Drugs: denies A-FIB/CHADSVASC A-FIB History Current/History of A-Fib/PAF?: No Current PO Anticoag Therapy: No Review of Systems Constitutional: Reports: Weakness; Denies: Chills, Fever Eyes: Denies: Pain ENT: Denies: Head Aches, Ear Pain Skin: Denies: Rash, Lesions Pulmonary: Reports: Dyspnea Cardiovascular: Denies: Chest Pain, Palpitations Gastrointestinal: Denies: Nausea, Vomiting Genitourinary: Denies: Dysuria Hematologic: Denies: Bruising Endocrine: Denies: Polydipsia Musculoskeletal: Denies: Neck Pain Neurological: Reports: Change in speech Psych: Reports: Mood Normal Physical Examination General Exam: Positive: Alert, Cooperative Eye Exam: Positive: PERRLA ENT Exam: Positive: Atraumatic Neck Exam: Positive: Supple; Negative: JVD Chest Exam: Positive: Diminished Heart Exam: Positive: Rate Normal Telemetry: Positive: No significant arrhythmia Abdomen Exam: Positive: Normal bowel sounds Extremity Exam: Positive: Edema, Swelling; Negative: Cyanosis Skin Exam: Positive: Nl turgor and temperature Neuro Exam: Positive: Cranial Nerves 3-12 NL, Reflexes 2+ Psych Exam: Positive: Mental status NL, Oriented x 3 Vital Signs Vital Signs Date Time Temp Pulse Resp B/P (MAP) Pulse Ox O2 Delivery O2 Flow Rate FiO2 12/11/20 18:43 97.8 76 182/82 (115) 99 Room Air 12/11/20 18:00 18 Laboratory Data Labs 24H Laboratory Tests 2 12/11/20 14:33: Immature Granulocyte % (Auto) 0.5, Neutrophils (%) (Auto) 74.1H, Lymphocytes (%) (Auto) 18.7L, Monocytes (%) (Auto) 5.8, Eosinophils (%) (Auto) 0.6, Basophils (%) (Auto) 0.3, Neutrophils # (Auto) 4.7, Lymphocytes # (Auto) 1.2L, Monocytes # (Auto) 0.4, Eosinophils # (Auto) 0.0, Basophils # (Auto) 0.0, Nucleated Red Blood Cells % (auto) 0.0, Anion Gap 6L, Glomerular Filtration Rate 42.8, Calcium Level 9.5, Total Bilirubin 0.5, Direct Bilirubin 0.1, Aspartate Amino Transf (AST/SGOT) 13, Alanine Aminotransferase (ALT/SGPT) 15, Alkaline Phosphatase 111, Total Creatine Kinase 66, Creatine Kinase MB 1.3, Creatine Kinase MB Relative Index 1.97, Troponin I < 0.02, DN-Ddp-A-Type Natriuretic Peptide 5302H, Total Protein 6.8, Albumin 3.0L, Albumin/Globulin Ratio 0.8L 12/11/20 18:04: Coronavirus (COVID-19)(PCR) NEGATIVE, Influenza Type A (RT-PCR) NEGATIVE, Influenza Type B (RT-PCR) NEGATIVE, Respiratory Syncytial Virus (PCR) NEGATIVE CBC/BMP Laboratory Tests 12/11/20 14:33 Assessment/Plan Patient is 75 years old female with past medical history of metastatic breast cancer with metastasis to the pleura, CKD3, HTN, IDDM2, DLP, Hx of DVT presented to the hospital with increased shortness of breath and expressive aphasia. Patient stated that after discharge on 10/25/2020, she was discharged with Pleurx catheter due to recurrent right pleural effusion, her visiting nurse periodically drained right pleural fluid . Patient visited [place] 2 weeks ago there her daughter lives and stated that she developed shortness of breath, she went to the hospital and found to have large right pleural effusion which was drained. After that time her pleural effusion was not drained. Patient subsequently developed increased shortness of breath, generalized weakness. Also she stated that she became more forgetful and since Thursday she has been having difficulties to express herself verbally. However when I saw her I did not notice expressive aphasia. In ER patient was found to have systolic blood pressure elevated to 209, creatinine 1.29, BNP 5302, glucose level of 375. CT showed No evidence for pul monary embolus. Moderate right pleural effusion and right basilar atelectasis slightly increased from prior examination despite right-sided chest tube in stable position. Problems (1) Dyspnea Status: Acute Problem Text: Multifactorial. Most likely due to recurrent pleural right effusion and CHF exacerbation Incentive spirometry, oxygen supplementation ER physician talked to Dr. Agrawal he recommended to drain right pleural effusion via Pleurx daily (2) Recurrent right pleural effusion Status: Chronic Problem Text: Due to right metastatic breast cancer According to chart record patient is a unlikely candidate for chemotherapy due to deconditioning Diagnosis is metastatic ER positive breast cancer currently on Faslodex alone, she has been off the CDK 46 inhibitor Ibrance due to financial constraints (3) Expressive aphasia Status: Acute Problem Text: Differential diagnosis includes hypertensive urgency, metastasis, stroke We'll proceed with MRI CT head negative for stroke or mass (4) Malignant neoplasm of upper-inner quadrant of right female breast Status: Chronic Problem Text: Follow-up with oncologist in the outpatient settings (5) Secondary malignant neoplasm of pleura Status: Chronic Problem Text: Follow-up with oncologist in the outpatient settings (6) Hypertensive urgency Status: Acute Problem Text: Most likely due to noncompliance to medication Captopril by mouth 6.25 mg Hydralazine IV with parameters Norvasc 10 mg now (7) CHF (congestive heart failure) Status: Acute Problem Text: Patient developed orthopnea, elevated BNP and legs swelling I's and O's Lasix IV Cardiac diet Echo Fluid restriction to 1500 mL (8) Diabetes mellitus Status: Chronic Problem Text: Insulin sliding scale Diabetes diet Detemir twice a day (9) Physical deconditioning Status: Chronic Problem Text: Due to advanced malignancy PT/OT (10) History of DVT (deep vein thrombosis) Status: Chronic Problem Text: Continue xarelto Plan / VTE VTE Prophylaxis Ordered?: Yes KHURRAM ARRIAZA DO Dec 11, 2020 19:27
[2020-12-11] MEDS ORDERED: CAPTOpril 6.25 MG PER 1/2 TABLET PO ONE (20:00)
[2020-12-11 21:14] VITALS: BP 158/75
[2020-12-11] MEDS: FUROSEMIDE 40MG/4ML VIAL (J1940) IV SCH ×2 (21:33→23:04)
[2020-12-11] MEDS: RIVAROXABAN 20 MG TAB (XARELTO) PO SCH (21:47)
[2020-12-11] MEDS: ASPIRIN 81MG ENTERIC TABLET PO SCH (21:47)
[2020-12-11] MEDS: SIMVASTATIN 20 MG TAB PO SCH (21:47)
[2020-12-11] MEDS: VITAMIN D 1,000 INTERNATIONAL UNITS TABLET PO SCH (21:48)
[2020-12-11] MEDS: HumaLOG INSULIN (NovoLOG) PER UNIT SC SCH (21:48)
[2020-12-11] MEDS: LEVEMIR (INSULIN DETEMIR) 1 UNITS/0.01ML SC SCH (21:48)
--- NOTE | 2020-12-11 22:02 | REPVR ---
PROCEDURE INFORMATION: Exam: MR Head Without Contrast Exam date and time: 12/11/2020 8:54 PM Age: 75 years old Clinical indication: Dizziness; Additional info: Stroke TECHNIQUE: Imaging protocol: MR of the head without contrast. COMPARISON: MRI-Brain W/O FOLL BY WITH 12/16/2018 11:10 AM FINDINGS: On diffusion weighted sequences, there is no evidence of true restricted diffusion. No evidence of acute infarction. There are no intra-or extra-axial hemorrhages or fluid collections. There is no mass effect or midline shift. Ventricles are symmetrical and mildly dilated with associated cortical volume loss consistent with generalized atrophy. On FLAIR sequences, increased T2 signal in the subcortical and periventricular deep white matter of the cerebral hemispheres bilaterally likely consistent with age related changes of chronic ischemia/infarction. There are no focal parenchymal abnormalities. Midline craniocervical structures are grossly normal. Normal flow voids are identified in the major intracranial arteries. Moderate polypoid mucosal thickening in the right maxillary sinus. Paranasal sinuses and mastoid air cells otherwise clear. IMPRESSION: No evidence of true restricted diffusion. No evidence of acute infarction. No acute intracranial process. Probable age-related generalized atrophy and chronic ischemic changes. Electronically signed by: Stanton Morillo On 12/11/2020 22:01:58 PM
[2020-12-11 23:03] VITALS: BP 141/66
[2020-12-12 05:37] LABS: HEMATOCRIT 35.6 % (36.0-47.0); HEMOGLOBIN 11.8 g/dl (12.0-15.5); MEAN CORPUSCULAR HEMOGLOBIN 30.3 pg (27.0-33.0); MEAN CORPUSCULAR HGB CONC 33.1 g/dl (32.0-36.5); MEAN CORPUSCULAR VOLUME 91.3 fl (80.0-96.0); PLATELET COUNT, AUTOMATED 175 10^3/uL (150-450); WHITE BLOOD COUNT 6.8 10^3/uL (4.0-10.0)
[2020-12-12 06:09] LABS: ALBUMIN 2.8 GM/DL (3.2-5.2); BILIRUBIN,TOTAL 0.3 MG/DL (0.2-1.0); CALCIUM LEVEL 9.4 MG/DL (8.8-10.2); CREATININE FOR GFR 1.32 MG/DL (0.55-1.30); GLOMERULAR FILTRATION RATE 41.7 (>39); MAGNESIUM LEVEL 1.8 MG/DL (1.8-2.4); POTASSIUM SERUM 3.8 MEQ/L (3.5-5.1)
[2020-12-12 07:26] VITALS: BP 131/61
[2020-12-12 09:29] VITALS: BP 131/61
[2020-12-12] MEDS: HumaLOG INSULIN (NovoLOG) PER UNIT SC SCH ×4 (09:30→20:27)
[2020-12-12] MEDS: LEVEMIR (INSULIN DETEMIR) 1 UNITS/0.01ML SC SCH (09:31)
[2020-12-12] MEDS: FUROSEMIDE 40MG/4ML VIAL (J1940) IV SCH ×2 (09:31→16:29)
--- NOTE | 2020-12-12 09:59 | IPNPDOC ---
Text Note Date of Service The patient was seen on 12/12/20. NOTE Subjective: Patient stated that she feels much better today. Overnight the right pleural effusion was drained via Pleurx catheter 10 mL of clear fluid was evacuated. Patient denies fever, chills, chest pain, palpitations. In the morning patient decided to change her CODE STATUS from DNR/DNI to full code. Objective: GENERAL APPEARANCE: NAD HEENT: no scleral icterus, plus JVD, EOMI CARDIOVASCULAR: Irregularly irregular LUNGS: Diminished lung sounds bilaterally, right Pleurx catheter in place ABDOMEN: soft & not tender w palpitation MUSCULOSKELETAL: no cyanosis, no swelling INTEGUMENT: no generalized pallor NEUROLOGICAL: cranial nerve function from 2-12 intact intact, follows commands, speech not dysarthric Assessment/Plan Patient is 75 years old female with past medical history of metastatic breast cancer with metastasis to the pleura, CKD3, HTN, IDDM2, DLP, Hx of DVT presented to the hospital with increased shortness of breath and expressive aphasia. Patient stated that after discharge on 10/25/2020, she was discharged with Pleurx catheter due to recurrent right pleural effusion, her visiting nurse periodically drained right pleural fluid . Patient visited [place] 2 weeks ago there her daughter lives and stated that she developed shortness of breath, she went to the hospital and found to have large right pleural effusion which was drained. After that time her pleural effusion was not drained. Patient subsequently developed increased shortness of breath, generalized weakness. Also she stated that she became more forgetful and since Thursday she has been having difficulties to express herself verbally. However when I saw her I did not noti ce expressive aphasia. In ER patient was found to have systolic blood pressure elevated to 209, cre atinine 1.29, BNP 5302, glucose level of 375. CT showed No evidence for pulmonary embolus. Moderate right pleural effusion and right basilar atelectasis slightly increased from prior examination despite right-sided chest tube in stable position. Problems (1) Dyspnea Most likely CHF exacerbation, unlikely malignant pleural effusion given only 10 mL pleural fluid was evacuated overnight Incentive spirometry, oxygen supplementation (2) Recurrent right pleural effusion Due to right metastatic breast cancer. Patient has minimal pleural effusion, unlikely is a cause of dyspnea According to chart record patient is a unlikely candidate for chemotherapy due to deconditioning Diagnosis is metastatic ER positive breast cancer currently on Faslodex alone, she has been off the CDK 46 inhibitor Ibrance due to financial constraints (3) Expressive aphasia resolved. Most likely secondary to uncontrolled blood pressure Brain MRI negative for metastases or stroke (4) Malignant neoplasm of upper-inner quadrant of right female breast Follow-up with oncologist in the outpatient settings (5) Secondary malignant neoplasm of pleura Follow-up with oncologist in the outpatient settings (6) Hypertensive urgency/hypertensive Blood pressures under control Most likely due to noncompliance to medication Continue lisinopril 20 mg daily Hydralazine IV with parameters (7) acute diastolic CHF (congestive heart failure) exacerbation Patient developed orthopnea, elevated BNP and legs swelling I's and O's Continue Lasix IV Cardiac diet Will repeat Echo Fluid restriction to 1500 mL (8) Diabetes mellitus Insulin sliding scale Diabetes diet Detemir twice a day (9) Physical deconditioning Due to advanced malignancy PT/OT (10) History of DVT (deep vein thrombosis) Continue xarelto Acute on chronic CHF Most like secondary to intravascular depletion Continue to monitor VS,Fishbone, I+O VS, Fishbone, I+O Laboratory Tests 12/11/20 14:33 12/12/20 05:22 Vital Signs Date Time Temp Pulse Resp B/P (MAP) Pulse Ox O2 Delivery O2 Flow Rate FiO2 12/12/20 09:29 131/61 12/12/20 07:26 97.4 71 20 97 Room Air I&O- Last 24 Hours up to 6 AM 12/12/20 06:00 Output Total 400 ml Balance -400 ml KHURRAM ARRIAZA DO Dec 12, 2020 09:59
[2020-12-12 11:34] VITALS: BP 117/56
[2020-12-12 15:40] VITALS: BP 114/59
[2020-12-12] MEDS ORDERED: HumaLOG INSULIN (NovoLOG) PER UNIT SC ONE (16:35)
[2020-12-12] MEDS ORDERED: LEVEMIR (INSULIN DETEMIR) 1 UNITS/0.01ML SC ONE ×2 (16:35→21:00)
[2020-12-12 19:58] VITALS: BP 119/57
[2020-12-12] MEDS: SIMVASTATIN 20 MG TAB PO SCH (20:28)
[2020-12-12] MEDS: RIVAROXABAN 20 MG TAB (XARELTO) PO SCH (20:28)
[2020-12-12] MEDS: ASPIRIN 81MG ENTERIC TABLET PO SCH (20:28)
[2020-12-12] MEDS: VITAMIN D 1,000 INTERNATIONAL UNITS TABLET PO SCH (20:28)
--- NOTE | 2020-12-12 20:39 | ECGEPIP ---
[facility] - ED Test Date: 2020-12-11 Pat Name: NAVIN PEOPLES Department: Room: - Gender: Female Movie Operator: JULIANA : 1945 Requested By: Kyrie Dobson Order Number: [id number] Reading MD: Elizabeth Doyle Measurements Intervals Guadalupe Rate: 76 P: AR: 184 QRS: -82 QRSD: 134 T: 20 QT: 430 QTc: 483 Interpretive Statements Normal sinus rhythm Left axis deviation Right bundle branch block similar 10/02/20 Electronically Signed on 12-12-2020 20:38:49 EDT by Elizabeth Doyle
[2020-12-12] MEDS ORDERED: LEVEMIR (INSULIN DETEMIR) 1 UNITS/0.01ML SC SCH (21:00)
[2020-12-13 00:12] VITALS: BP 144/93
[2020-12-13] MEDS: FUROSEMIDE 40MG/4ML VIAL (J1940) IV SCH (00:14)
[2020-12-13 03:49] VITALS: BP 119/56
[2020-12-13 05:18] LABS: BASO % 0.3 % (0.0-1.0); EOS # 0.1 10^3/uL (0.0-0.5); HEMATOCRIT 34.9 % (36.0-47.0); HEMOGLOBIN 11.5 g/dl (12.0-15.5); LYMPH # 1.9 10^3/uL (1.5-5.0); MEAN CORPUSCULAR VOLUME 91.1 fl (80.0-96.0); MONO # 0.5 10^3/uL (0.0-0.8); MONO % 7.8 % (2.0-8.0); NEUTROPHILS # 4.3 10^3/uL (1.5-8.5); NEUTROPHILS % 62.6 % (36.0-66.0); PLATELET COUNT, AUTOMATED 180 10^3/uL (150-450); RED BLOOD COUNT 3.83 10^6/uL (4.00-5.40); WHITE BLOOD COUNT 6.8 10^3/uL (4.0-10.0)
[2020-12-13 05:58] LABS: ALBUMIN 2.8 GM/DL (3.2-5.2); BILIRUBIN,TOTAL 0.3 MG/DL (0.2-1.0); CREATININE FOR GFR 1.57 MG/DL (0.55-1.30); GLOMERULAR FILTRATION RATE 34.1 (>39); MAGNESIUM LEVEL 1.6 MG/DL (1.8-2.4); POTASSIUM SERUM 3.7 MEQ/L (3.5-5.1); TOTAL PROTEIN 5.9 GM/DL (6.4-8.2)
[2020-12-13 07:29] VITALS: BP 110/53
[2020-12-13] MEDS ORDERED: MAG SULF 1GM/100ML (MAG RUN) 1 GM in IV 1 EA IV SCH (08:00)
[2020-12-13] MEDS: HumaLOG INSULIN (NovoLOG) PER UNIT SC SCH ×2 (08:21→12:01)
[2020-12-13] MEDS ORDERED: LEVEMIR (INSULIN DETEMIR) 1 UNITS/0.01ML SC SCH (09:00)
[2020-12-13] MEDS ORDERED: LISI20TA33 PO (10:59)
[2020-12-13] MEDS ORDERED: BASA100I SC (10:59)
[2020-12-13] MEDS ORDERED: TORS20TA2 PO (10:59)
[2020-12-13] MEDS ORDERED: FUROSEMIDE 40MG/4ML VIAL (J1940) IV SCH (12:00)
--- NOTE | 2020-12-13 15:13 | DS.PDOC ---
Discharge Summary General Date of Admission Dec 11, 2020 at 18:39 Date of Discharge 12/13/20 Discharge Summary PROCEDURES PERFORMED DURING STAY: [None]. ADMITTING DIAGNOSES: Dyspnea Recurrent right pleural effusion Expressive aphasia Malignant neoplasm of upper-inner quadrant of right female breast Secondary malignant neoplasm of pleura Hypertensive urgency/hypertensive acute diastolic CHF (congestive heart failure) exacerbation Diabetes mellitus Physical deconditioning History of DVT (deep vein thrombosis) Acute on chronic CHF DISCHARGE DIAGNOSES: Dyspnea Recurrent right pleural effusion Expressive aphasia Malignant neoplasm of upper-inner quadrant of right female breast Secondary malignant neoplasm of pleura Hypertensive urgency/hypertensive acute diastolic CHF (congestive heart failure) exacerbation Diabetes mellitus Physical deconditioning History of DVT (deep vein thrombosis) Acute on chronic CHF COMPLICATIONS/CHIEF COMPLAINT: Dyspnea, Expressive Aphasia. HISTORY OF PRESENT ILLNESS: Patient is 75 years old female with past medical history of metastatic breast cancer with metastasis to the pleura, CKD3, HTN, IDDM2, DLP, Hx of DVT presented to the hospital with increased shortness of breath and expressive aphasia. Patient stated that after discharge on 10/25/2020, she was discharged with Pleurx catheter due to recurrent right pleural effusion, her visiting nurse periodically drained right pleural fluid . Patient visited [place] 2 weeks ago there her daughter lives and stated that she developed shortness of breath, she went to the hospital and found to have large right pleural effusion which was drained. After that time her pleural effusion was not drained. Patient subsequently developed increased shortness of breath, generalized weakness. Also she stated that she became more forgetful and since Thursday she has been having difficulties to express herself verbally. However when I saw her I did not notice expressive aphasia. In ER patient was found to have systolic blood pressure elevated to 209, creatinine 1.29, BNP 5302, glucose level of 375. CT showed No evidence for pulmonary embolus. Moderate right pleural effusion and right basilar atelectasis slightly increased from prior examination despite right-sided chest tube in stable position. HOSPITAL COURSE: During the hospital course following issue addressed (1) Dyspnea Most likely CHF exacerbation, unlikely malignant pleural effusion given only 10 mL pleural fluid was evacuated on the admission Incentive spirometry, oxygen supplementation (2) Recurrent right pleural effusion Due to right metastatic breast cancer. Patient has minimal pleural effusion, unlikely is a cause of dyspnea According to chart record patient is a unlikely candidate for chemotherapy due to deconditioning Diagnosis is metastatic ER positive breast cancer currently on Faslodex alone, she has been off the CDK 46 inhibitor Ibrance due to financial constraints (3) Expressive aphasia resolved. Most likely secondary to uncontrolled blood pressure Brain MRI negative for metastases or stroke (4) Malignant neoplasm of upper-inner quadrant of right female breast Follow-up with oncologist in the outpatient settings (5) Secondary malignant neoplasm of pleura Follow-up with oncologist in the outpatient settings (6) Hypertensive urgency/hypertensive Blood pressures under control Most likely due to noncompliance to medication Continue lisinopril 20 mg daily Hydralazine IV with parameters (7) acute diastolic CHF (congestive heart failure) exacerbation Patient developed orthopnea, elevated BNP and legs swelling I's and O's Continue Lasix IV Cardiac diet Will repeat Echo Fluid restriction to 1500 mL (8) Diabetes mellitus Insulin sliding scale Diabetes diet Detemir twice a day (9) Physical deconditioning Due to advanced malignancy PT/OT (10) History of DVT (deep vein thrombosis) Continue xarelto JUAN Most like secondary to intravascular depletion Continue to monitor DISCHARGE MEDICATIONS: Please see below. ALLERGIES: Please see below. PHYSICAL EXAMINATION ON DISCHARGE: VITAL SIGNS: Please see below. GENERAL APPEARANCE: NAD HEENT: no scleral icterus, plus JVD, EOMI CARDIOVASCULAR: Irregularly irregular LUNGS: Diminished lung sounds bilaterally, right Pleurx catheter in place ABDOMEN: soft & not tender w palpitation MUSCULOSKELETAL: no cyanosis, no swelling INTEGUMENT: no generalized pallor NEUROLOGICAL: cranial nerve function from 2-12 intact intact, follows commands, speech not dysarthric LABORATORY DATA: Please see below. IMAGING: INDICATION: expressive aphasia COMPARISON: 11/03/2020 TECHNIQUE: Axial contrast enhanced images from the thoracic inlet to the upper abdomen using pulmonary embolus technique with multiplanar re-formations. 75 ml Isovue 370 intravenous contrast material administered without complication. This CT examination was performed using the following dose reduction techniques: Automated exposure control, adjustment of mA and/or kv according to the patient's size, and use of iterative reconstruction technique. FINDINGS: Satisfactory enhancement of the pulmonary vasculature is achieved and no filling defects are identified to suggest pulmonary embolus. Thoracic aorta is without aneurysm or dissection. No cardiomegaly or pericardial effusion. A right-sided chest tube is identified in stable position and a moderate right pleural effusion is again identified which appears slightly increased in size from prior examination along with right lower lobe atelectasis. Associated mediastinal adenopathy is suggested and similar to prior examination. IMPRESSION: No evidence for pulmonary embolus. Moderate right pleural effusion and right basilar atelectasis slightly increased from prior examination despite right-sided chest tube in stable position. <Electronically signed by Rodney Panda > 12/11/20 1632 DD: Rodney Panda MD 12/11/20 1628 DT: KATERIN 12/11/20 163 DS: SERVANDO 12/11/20 1628 12/11/20 1628 PROGNOSIS: Guarded ACTIVITY: [As tolerated]. DIET: Cardiac/diabetes DISPOSITION: Home Health Service. ITEMS TO FOLLOWUP ON ON OUTPATIENT: Follow-up with PCP in 3-5 days, follow-up with oncologist DISCHARGE CONDITION: [Stable]. TIME SPENT ON DISCHARGE: 40minutes. Vital Signs/I&Os Vital Signs Date Time Temp Pulse Resp B/P (MAP) Pulse Ox O2 Delivery O2 Flow Rate FiO2 12/13/20 07:29 97.1 70 18 110/53 (72) 97 Room Air I&O- Last 24 Hours up to 6 AM 12/13/20 06:00 Intake Total 960 ml Output Total 1975 ml Balance -1015 ml Laboratory Data Labs 24H Laboratory Tests 2 12/12/20 16:27: Bedside Glucose (Misc Panel) 562*H 12/12/20 16:52: Bedside Glucose Confirm (Misc) 555*H 12/12/20 18:20: Bedside Glucose (Misc Panel) 472H 12/12/20 19:56: Bedside Glucose (Misc Panel) 387H 12/12/20 22:26: Bedside Glucose (Misc Panel) 332H 12/13/20 04:05: Bedside Glucose (Misc Panel) 124H 12/13/20 05:04: Immature Granulocyte % (Auto) 0.3, Neutrophils (%) (Auto) 62.6, Lymphocytes (%) (Auto) 28.0, Monocytes (%) (Auto) 7.8, Eosinophils (%) (Auto) 1.0, Basophils (%) (Auto) 0.3, Neutrophils # (Auto) 4.3, Lymphocytes # (Auto) 1.9, Monocytes # (Auto) 0.5, Eosinophils # (Auto) 0.1, Basophils # (Auto) 0.0, Nucleated Red Blood Cells % (auto) 0.0, Anion Gap 9, Glomerular Filtration Rate 34.1L, Calcium Level 9.0, Magnesium Level 1.6L, Total Bilirubin 0.3, Aspartate Amino Transf (AST/SGOT) 14, Alanine Aminotransferase (ALT/SGPT) 12, Alkaline Phosphatase 98, BY-Zki-M-Type Natriuretic Peptide 2550H, Total Protein 5.9L, Albumin 2.8L, Albumin/Globulin Ratio 0.9L 12/13/20 06:57: Bedside Glucose (Misc Panel) 214H 12/13/20 07:20: Bedside Glucose (Misc Panel) 209H 12/13/20 11:31: Bedside Glucose (Misc Panel) 313H CBC/BMP Laboratory Tests 12/13/20 05:04 FSBS Laboratory Tests Test 12/12/20 16:27 12/12/20 18:20 12/12/20 19:56 12/12/20 22:26 Range/Units Bedside Glucose (Misc Panel) 562 472 387 332 83-110 MG/DL Test 12/13/20 04:05 12/13/20 06:57 12/13/20 07:20 12/13/20 11:31 Range/Units Bedside Glucose (Misc Panel) 124 214 209 313 83-110 MG/DL Discharge Medications Scheduled Aspirin (Aspirin EC) 81 Mg Tablet.dr, 81 MG PO QHS, (Reported) Cholecalciferol (Vitamin D3) (Vitamin D3) 1,000 Unit Tablet, 1,000 UNITS PO QHS, (Reported) Fulvestrant (Faslodex) 250 Mg/5 Ml Syringe, 500 MG IM QMONTH, (Reported) Insulin Glargine,Hum.rec.anlog (Basaglar Kwikpen U-100) 100 Unit/1 Ml Insuln.pen, 45 UNIT SC QHS Iron Ps Complex/B12/Folic Acid (Poly-Iron 150 Forte Capsule) 1 Each Capsule, 1 CAP PO QHS, (Reported) Liraglutide (Victoza 2-Juan Carlos) 0.6 Mg/0.1 Ml Pen.injctr, 1.2 MG SC QHS, (Reported) Lisinopril (Lisinopril) 20 Mg Tablet, 20 MG PO DAILY Rivaroxaban (Xarelto) 20 Mg Tablet, 20 MG PO QHS, (Reported) Simvastatin (Simvastatin) 20 Mg Tab, 20 MG PO QHS, (Reported) Torsemide (Torsemide) 20 Mg Tablet, 1 TAB PO DAILY Venlafaxine HCl (Venlafaxine HCl) 75 Mg Tablet, 75 MG PO BID, (Reported) Scheduled PRN Acetaminophen (Tylenol Arthritis) 650 Mg Tablet.er, 650 MG PO Q8H PRN for PAIN, (Reported) Allergies Coded Allergies: adhesive tape (Verified Allergy, Intermediate, rash, 12/23/18) exenatide (Verified Allergy, Mild, itching, 12/23/18) KHURRAM ARRIAZA DO Dec 13, 2020 15:13
--- NOTE | 2020-12-13 15:31 | ECHO ---
ECHOCARDIOGRAM DATE OF PROCEDURE: 12/12/2020 Age: 75 Gender: Female Height: 63 inches Weight: 169 pounds Body Surface Area: 1.8 m2 PATIENT LOCATION: Inpatient PCU Room 3230. REFERRING PHYSICIAN: Dr. Garsia. INDICATION: Heart failure. MEASUREMENTS: 2D Measurements: RV - 3.8 cm LV 4.4 cm Septum 1.3 cm Posterior wall 1.3 cm Aortic Root 3.2 cm Ascending aorta 3.6 cm LA 4.2 cm LVEF 85% Doppler Measurements: AV 1.55 m/s LVOT 1.2 m/s LVOT diameter 1.8 cm MV-E 78, A 133, EA ratio 0.6 Early mitral deceleration time 288 msec MVA 2.63 cm2 PV 0.95 msec Pulmonary artery acceleration time 98 msec RVSP at least 40 mmHg IVC 1.8 cm COMMENTS: Normal sinus rhythm with right bundle branch block. M-mode and 2-dimensional echocardiography was performed with pulse, continuous wave, color flow, and tissue Doppler studies. Mild to moderate concentric left ventricular hypertrophy with hyperkinetic wall motion. Prominently dilated left atrium visualized best from the apical four chamber and two chamber projections. Unable to define LV diastolic function in the setting of a mitral valve disorder. Right ventricle was upper limits of normal in size with normal wall motion and Doppler evidence of at least moderate pulmonary hypertension. Right atrium was upper limits of normal in size with normal IVC size and reduced respiratory collapse suggestive of an elevated central venous pressure. Normal aortic dimensions. Moderate aortic valvular sclerosis without functional abnormality. Moderately severe mitral annular calcification with at least mild LV inflow tract obstruction and only trace insufficiency. Normal appearing tricuspid valve with moderate insufficiency. No apparent intracardiac mass or pericardial effusion. MTDD
[2020-12-14] MEDS ORDERED: BASA100I SC (17:50)
[2020-12-14] MEDS ORDERED: TORS20TA2 PO (17:50)
[2020-12-14] MEDS ORDERED: LISI20TA33 PO (17:50)
== END 2020-12-13 14:02 | disposition home health service (06) | DRG 291 ==
LOC: M ED 13:41 → M ED INP 18:39 → ENRESERV 19:04 → M PCU 21:07
PROVIDERS: ADMIT Internal Medicine; ATTEND Internal Medicine
DX: I13.0 Hypertensive heart and chronic kidney disease with heart failure and stage 1 through stage 4 chronic kidney disease, or unspecified chronic kidney disease (principal); I50.33 Acute on chronic diastolic (congestive) heart failure; C78.00 Secondary malignant neoplasm of unspecified lung; J91.0 Malignant pleural effusion; C50.211 Malignant neoplasm of upper-inner quadrant of right female breast; N18.30 Chronic kidney disease, stage 3 unspecified; I16.0 Hypertensive urgency; E11.22 Type 2 diabetes mellitus with diabetic chronic kidney disease; Z86.718 Personal history of other venous thrombosis and embolism; Z79.899 Other long term (current) drug therapy; Z79.82 Long term (current) use of aspirin; Z79.4 Long term (current) use of insulin; Z88.8 Allergy status to other drugs, medicaments and biological substances; J45.909 Unspecified asthma, uncomplicated

== ENCOUNTER 2020-12-14 13:18 | Inpatient (IN) | payer MEDICARE ==
[~2020-12-14] VITALS: Ht 160 cm; Wt 75.8 kg
[~2020-12-14 13:18] MED LIST changes: +LISI20TA33 PO; +TORS20TA2 PO
[2020-12-14 14:42] LABS: BASO % 0.3 % (0.0-1.0); EOS % 0.5 % (0.0-3.0); HEMOGLOBIN 10.3 g/dl (12.0-15.5); LYMPH # 1.2 10^3/uL (1.5-5.0); LYMPH % 19.2 % (24.0-44.0); MEAN CORPUSCULAR HEMOGLOBIN 30.4 pg (27.0-33.0); MEAN CORPUSCULAR HGB CONC 33.2 g/dl (32.0-36.5); MEAN CORPUSCULAR VOLUME 91.4 fl (80.0-96.0); MONO # 0.5 10^3/uL (0.0-0.8); MONO % 8.7 % (2.0-8.0); NEUTROPHILS # 4.3 10^3/uL (1.5-8.5); NEUTROPHILS % 70.8 % (36.0-66.0); PLATELET COUNT, AUTOMATED 169 10^3/uL (150-450); RED BLOOD COUNT 3.39 10^6/uL (4.00-5.40)
[2020-12-14 15:09] LABS: BLOOD UREA NITROGEN 53 MG/DL (7-18); CALCIUM LEVEL 8.7 MG/DL (8.8-10.2); CARBON DIOXIDE LEVEL 26 MEQ/L (21-32); CHLORIDE LEVEL 96 MEQ/L (98-107); CK-MB VALUE MASS 2.4 NG/ML (<3.6); CPK CREATINE PHOSPHOKINASE 105 U/L (26-192); CREATININE FOR GFR 1.83 MG/DL (0.55-1.30); GLOMERULAR FILTRATION RATE 28.6 (>39); GLUCOSE, FASTING 406 MG/DL (70-100); MB/CK RELATIVE INDEX 2.29 (< OR =4); POTASSIUM SERUM 3.8 MEQ/L (3.5-5.1); SODIUM LEVEL 131 MEQ/L (136-145); TROPONIN I < 0.02 NG/ML (< 0.10)
[2020-12-14 15:12] LABS: HEMOGLOBIN A1c 10.9 %
[2020-12-14] MEDS ORDERED: GLUCAGON INJ 1MG VIAL SC PRN (16:15)
[2020-12-14] MEDS ORDERED: DEXTROSE 50% 50 ML SYRINGE IV PRN (16:15)
[2020-12-14] MEDS ORDERED: GLUCOSE 4GM CHEW TABLET PO PRN (16:15)
[2020-12-14] MEDS ORDERED: NS 1,000 ML IV ONE (16:15)
[2020-12-14 16:43] LABS: RSV AMPLIFICATION NEGATIVE (NEGATIVE)
[2020-12-14] MEDS ORDERED: HumaLOG INSULIN (NovoLOG) PER UNIT SC SCH ×2 (17:30→21:00)
--- NOTE | 2020-12-14 17:48 | HPEPDOC ---
General Date of Admission 12/14/2020 Date of Service: Dec 14, 2020 Chief Complaint The patient is a 75-year-old female admitted with a reason for visit of Hypoglycemia. History of Present Illness 75-year-old female with metastatic breast cancer, diabetes, hypertension, diastolic CHF, mitral valvular disease recurrent malignant right pleural effusion with Pleurx catheter in place was admitted in the hospital from 12/11/2020 to 12/13/2020 for aphasia with MRI brain negative for any acute stroke or metastases, SOB from CHF exacerbation, She comes in today at the urging of the public health nurse for high blood sugars. Apparently after going home yesterday afternoon. She had a good dinner then at around 10:30 PM she got up from her chair to go to bed and she just fell down on the floor. She didn't have any loss of consciousness, didn't have any trauma, didn't hit her head. She could not get up from the floor, so had to call the EMS. EMS found her sugar to be over 500, but the patient refused to come back to them emergency room. She reports that she took her 34 units of insulin at night and went to bed. This morning she drove to her friend's place as the public health nurse was coming to their to teach her friend how to drain the fluid. There, she mentioned her high sugars. The night before. The nurse checked her sugars again it was over 400, so the nurse urged her to come to the emergency room. In the ED she was found to be dehydrated, hyperglycemic and had JUAN and so was admitted to the hospitalist service. Home Medications Scheduled Aspirin (Aspirin EC) 81 Mg Tablet.dr, 81 MG PO QHS, (Reported) Cholecalciferol (Vitamin D3) (Vitamin D3) 1,000 Unit Tablet, 1,000 UNITS PO QHS, (Reported) Fulvestrant (Faslodex) 250 Mg/5 Ml Syringe, 500 MG IM QMONTH, (Reported) Insulin Glargine,Hum.rec.anlog (Basaglar Kwikpen U-100) 100 Unit/1 Ml Insul n.pen, 45 UNIT SC QHS Iron Ps Complex/B12/Folic Acid (Poly-Iron 150 Forte Capsule) 1 Each Capsule, 1 CAP PO QHS, (Reported) Liraglutide (Victoza 2-Juan Carlos) 0.6 Mg/0.1 Ml Pen.injctr, 1.2 MG SC QHS, (Reported) Lisinopril (Lisinopril) 20 Mg Tablet, 20 MG PO DAILY Rivaroxaban (Xarelto) 20 Mg Tablet, 20 MG PO QHS, (Reported) Simvastatin (Simvastatin) 20 Mg Tab, 20 MG PO QHS, (Reported) Torsemide (Torsemide) 20 Mg Tablet, 1 TAB PO DAILY Venlafaxine HCl (Venlafaxine HCl) 75 Mg Tablet, 75 MG PO BID, (Reported) Scheduled PRN Acetaminophen (Tylenol Arthritis) 650 Mg Tablet.er, 650 MG PO Q8H PRN for PAIN, (Reported) Allergies Coded Allergies: adhesive tape (Verified Allergy, Intermediate, rash, 12/14/20) exenatide (Verified Allergy, Mild, itching, 12/14/20) Past Medical History Medical History Invasive ductal carcinoma of the right breast, 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 1 pleural fluid culture grew Kocuria Rosea. CKD stage 3 DM H/O DVT HLD depression Dizziness HTN Asthma Prior exposure to COVID. Diastolic CHF Debility/Physical deconditioning/ gait instability ad falls. Surgical History Right breast lumpectomy tubal ligation H/o right chest tube. bilateral cataract surgery Right Pleurex catheter placement. Family History FATHER: , LIVER DISEASE MOTHER: , GI BLEED DAUGHTER HAS MS Social History * Smoker: Denies Alcohol: Denies Drugs: denies A-FIB/CHADSVASC A-FIB History Current/History of A-Fib/PAF?: No Review of Systems Constitutional: Reports: Weakness; Denies: Chills, Fever, Night Sweats Eyes: Denies: Pain, Vision change ENT: Denies: Head Aches, Ear Pain, Dysphagia Skin: Denies: Rash, Lesions, Breakdown Pulmonary: Denies: Dyspnea, Cough Cardiovascular: Denies: Chest Pain, Palpitations, Orthopnea, Paroxysmal Noc. Dyspnea Gastrointestinal: Denies: Nausea, Vomiting, Abdominal Pain, Diarrhea Genitourinary: Denies: Dysuria, Frequency, Incontinence, Retention Physical Examination General Exam: Positive: Alert, Cooperative, No Acute Distress Eye Exam: Positive: PERRLA, Conjunctiva & lids normal, EOMI; Negative: Sclera icteric ENT Exam: Positive: Atraumatic, Mucous membr. moist/pink, Pharynx Normal Neck Exam: Positive: Supple; Negative: JVD, thyromegaly Chest Exam: Positive: Clear to auscultation, Normal air movement, Diminished (on the right. ) Heart Exam: Positive: Rate Normal, Regular Rhythm, Normal S1, Normal S2; Negative: Murmurs, Rubs Abdomen Exam: Positive: Normal bowel sounds, Soft, Other (umbilical hernia); Negative: Tenderness Extremity Exam: Negative: Clubbing, Cyanosis, Edema Vital Signs Vital Signs Date Time Temp Pulse Resp B/P (MAP) Pulse Ox O2 Delivery O2 Flow Rate FiO2 12/14/20 13:27 95.9 69 18 116/57 95 Laboratory Data Labs 24H Laboratory Tests 2 12/14/20 14:09: Immature Granulocyte % (Auto) 0.5, Neutrophils (%) (Auto) 70.8H, Lymphocytes (%) (Auto) 19.2L, Monocytes (%) (Auto) 8.7H, Eosinophils (%) (Auto) 0.5, Basophils (%) (Auto) 0.3, Neutrophils # (Auto) 4.3, Lymphocytes # (Auto) 1.2L, Monocytes # (Auto) 0.5, Eosinophils # (Auto) 0.0, Basophils # (Auto) 0.0, Nucleated Red Blood Cells % (auto) 0.0, Anion Gap 9, Glomerular Filtration Rate 28.6L, Estimated Mean Plasma Glucose 266H, Hemoglobin A1c 10.9, Calcium Level 8.7L, Total Creatine Kinase 105, Creatine Kinase MB 2.4, Creatine Kinase MB Relative Index 2.29, Troponin I < 0.02 CBC/BMP Laboratory Tests 12/14/20 14:09 Assessment/Plan 75-year-old female with metastatic breast cancer, diabetes, hypertension, diastolic CHF, mitral valvular disease recurrent malignant right pleural effusion with Pleurx catheter in place was admitted in the hospital from 12/11/2020 to 12/13/2020 for aphasia with MRI brain negative for any acute stroke or metastases, SOB from CHF exacerbation, She comes in today at the urging of the public health nurse for high blood sugars. Apparently after going home yesterday afternoon. She had a good dinner then at around 10:30 PM she got up from her chair to go to bed and she just fell down on the floor. She didn't have any loss of consciousness, didn't have any trauma, didn't hit her head. She could not get up from the floor, so had to call the EMS. EMS found her sugar to be over 500, but the patient refused to come back to them emergency room. She reports that she took her 34 units of insulin at night and went to bed. This morning she drove to her friend's place as the public health nurse was coming to their to teach her friend how to drain the fluid. There, she mentioned her high sugars. The night before. The nurse checked her sugars again it was over 400, so the nurse urged her to come to the emergency room. In the ED she was found to be dehydrated, hyperglycemic and had JUAN and so was admitted to the hospitalist service. JUAN Likely dehydrated from hyperglycemia, diuretics and SAMEER inhibitor Torsemide and lisinopril went well recently had started during the last hospitalization In the beginning of November. She used to be on Lasix 60 mg twice a day. I'm unsure if she was taking both her Lasix and torsemide Will hold all diuretics and SAMEER inhibitor 1 L IVF given Diabetes with them, hyperglycemia Her A1c is 10.6, which used to be in 7-8 range. Last year Will continue with them Levemir 45 units at bedtime She also takes Victoza at home Hypertension Lisinopril. If needed, will give amlodipine Hyperlipidemia Simvastatin History of DVT Continues Xarelto Metastatic invasive ductal carcinoma of the right breast,hormone receptor positive with chronic right-sided pleural effusion has Pleurx catheter in place on Ibrance and Faslodex. CT chest on 12/11/2020 read as Moderate right pleural effusion and right basilar atelectasis slightly increased from prior examination despite right-sided chest tube in stable position. On trying to drain the Pleurx catheter. During the prior admission and even today only 10-15 mL of fluid came out. I discussed the CT with Dr Agrawal and he thinks that it is minimal effusion. He is going to have a look at the Pleurx catheter tomorrow. Diastolic CHF, chronic Patient at present appears dehydrated Will hold diuretics Plan / VTE VTE Prophylaxis Ordered?: Yes LAUREL FARIAS MD Dec 14, 2020 16:06
[2020-12-14] MEDS ORDERED: LISI20TA33 PO (17:50)
[2020-12-14] MEDS ORDERED: TORS20TA2 PO (17:50)
[2020-12-14] MEDS ORDERED: BASA100I SC (17:50)
[2020-12-14 18:00] VITALS: BP 118/61
[2020-12-14] MEDS ORDERED: RIVAROXABAN 20 MG TAB (XARELTO) PO SCH (21:00)
[2020-12-14] MEDS ORDERED: LEVEMIR (INSULIN DETEMIR) 1 UNITS/0.01ML SC SCH (21:00)
[2020-12-14] MEDS: ACETAMINOPHEN 650MG ER TAB (TYLENOL ARTHRITIS) PO PRN (21:06)
[2020-12-14] MEDS: VENLAFAXINE 37.5 MG TAB PO SCH (21:06)
[2020-12-14] MEDS: ASPIRIN 81MG ENTERIC TABLET PO SCH (21:06)
[2020-12-14] MEDS: SIMVASTATIN 20 MG TAB PO SCH (21:06)
--- NOTE | 2020-12-14 21:31 | ECGEPIP ---
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
[2020-12-14 22:00] VITALS: BP 105/53
[2020-12-15 06:00] VITALS: BP 141/66
[2020-12-15 06:55] LABS: BASO % 0.4 % (0.0-1.0); EOS # 0.1 10^3/uL (0.0-0.5); EOS % 0.7 % (0.0-3.0); HEMOGLOBIN 11.6 g/dl (12.0-15.5); LYMPH # 1.4 10^3/uL (1.5-5.0); LYMPH % 19.9 % (24.0-44.0); MEAN CORPUSCULAR HEMOGLOBIN 29.7 pg (27.0-33.0); MEAN CORPUSCULAR HGB CONC 32.2 g/dl (32.0-36.5); MEAN CORPUSCULAR VOLUME 92.1 fl (80.0-96.0); MONO # 0.7 10^3/uL (0.0-0.8); MONO % 10.3 % (2.0-8.0); NEUTROPHILS # 4.9 10^3/uL (1.5-8.5); NEUTROPHILS % 68.1 % (36.0-66.0); PLATELET COUNT, AUTOMATED 203 10^3/uL (150-450); RED BLOOD COUNT 3.91 10^6/uL (4.00-5.40); WHITE BLOOD COUNT 7.1 10^3/uL (4.0-10.0)
[2020-12-15 07:15] LABS: INR 0.98; PARTIAL THROMBOPLASTIN TIME 32.5 SECONDS (24.2-38.5); PROTHROMBIN TIME 13.2 SECONDS (12.5-14.3)
[2020-12-15 07:31] LABS: CALCIUM LEVEL 8.6 MG/DL (8.8-10.2); CREATININE FOR GFR 1.24 MG/DL (0.55-1.30); GLOMERULAR FILTRATION RATE 44.8 (>39); POTASSIUM SERUM 3.1 MEQ/L (3.5-5.1)
[2020-12-15] MEDS ORDERED: POTASSIUM CHLORIDE 10 MEQ SR TABLET PO ONE (08:30)
[2020-12-15 08:40] VITALS: BP 138/64
[2020-12-15] MEDS: VENLAFAXINE 37.5 MG TAB PO SCH ×2 (09:25→21:36)
[2020-12-15 14:00] VITALS: BP 119/59
[2020-12-15] MEDS: ACETAMINOPHEN 650MG ER TAB (TYLENOL ARTHRITIS) PO PRN (18:07)
[2020-12-15] MEDS ORDERED: LEVEMIR (INSULIN DETEMIR) 1 UNITS/0.01ML SC SCH (21:00)
[2020-12-15] MEDS: SIMVASTATIN 20 MG TAB PO SCH (21:36)
[2020-12-15] MEDS: ASPIRIN 81MG ENTERIC TABLET PO SCH (21:36)
[2020-12-15 22:00] VITALS: BP 156/70
--- NOTE | 2020-12-16 00:22 | IPNPDOC ---
Text Note Date of Service The patient was seen on 12/16/20. NOTE Patients blood glucose tonight is 436 and upon recheck 396 at 2123. She is not c urrently on sliding scale insulin regimen for acute hyperglycemic episodes. Plan: Ordered AC &HS sliding scale insulin SQ for patient and will continue to monitor her condition. VS,Fishbone, I+O VS, Fishbone, I+O Laboratory Tests 12/15/20 06:16 Vital Signs Date Time Temp Pulse Resp B/P (MAP) Pulse Ox O2 Delivery O2 Flow Rate FiO2 12/15/20 22:00 97.9 72 18 156/70 (98) 99 Room Air I&O- Last 24 Hours up to 6 AM 12/16/20 06:00 Intake Total 1380 ml Output Total 525 ml Balance 855 ml LAYLA PAYNE Dec 16, 2020 00:22
[2020-12-16] MEDS: ACETAMINOPHEN 650MG ER TAB (TYLENOL ARTHRITIS) PO PRN ×2 (02:56→20:25)
[2020-12-16 06:00] VITALS: BP 139/69
[2020-12-16 06:44] LABS: BASO % 0.5 % (0.0-1.0); EOS % 0.7 % (0.0-3.0); HEMATOCRIT 34.7 % (36.0-47.0); HEMOGLOBIN 11.2 g/dl (12.0-15.5); LYMPH # 1.8 10^3/uL (1.5-5.0); LYMPH % 30.9 % (24.0-44.0); MEAN CORPUSCULAR HEMOGLOBIN 29.9 pg (27.0-33.0); MEAN CORPUSCULAR HGB CONC 32.3 g/dl (32.0-36.5); MEAN CORPUSCULAR VOLUME 92.5 fl (80.0-96.0); MONO # 0.6 10^3/uL (0.0-0.8); NEUTROPHILS # 3.3 10^3/uL (1.5-8.5); NEUTROPHILS % 56.6 % (36.0-66.0); PLATELET COUNT, AUTOMATED 217 10^3/uL (150-450); RED BLOOD COUNT 3.75 10^6/uL (4.00-5.40); WHITE BLOOD COUNT 5.8 10^3/uL (4.0-10.0)
[2020-12-16 07:26] LABS: CALCIUM LEVEL 8.8 MG/DL (8.8-10.2); CREATININE FOR GFR 1.25 MG/DL (0.55-1.30); GLOMERULAR FILTRATION RATE 44.4 (>39)
[2020-12-16] MEDS: HumaLOG INSULIN (NovoLOG) PER UNIT SC SCH ×3 (07:30→17:51)
--- NOTE | 2020-12-16 08:03 | IPNPDOC ---
Subjective Date Seen The patient was seen on 12/15/20. Subjective Chief Complaint/HPI Feeling a little better today. No SOB, no chest pain , no weakness any more than usual. Objective Physical Examination General Exam: Positive: Alert, Cooperative, No Acute Distress Eye Exam: Positive: PERRLA, Conjunctiva & lids normal, EOMI; Negative: Sclera icteric ENT Exam: Positive: Atraumatic, Mucous membr. moist/pink, Pharynx Normal Neck Exam: Positive: Supple; Negative: JVD, thyromegaly Chest Exam: Positive: Clear to auscultation, Normal air movement, Diminished (on the right. ) Heart Exam: Positive: Rate Normal, Regular Rhythm, Normal S1, Normal S2; Negative: Murmurs, Rubs Abdomen Exam: Positive: Normal bowel sounds, Soft, Other (umbilical hernia); Negative: Tenderness Extremity Exam: Negative: Clubbing, Cyanosis, Edema Assessment /Plan Assessment 75-year-old female with metastatic breast cancer, diabetes, hypertension, diastolic CHF, mitral valvular disease recurrent malignant right pleural effusion with Pleurx catheter in place was admitted in the hospital from 12/11/2020 to 12/13/2020 for aphasia with MRI brain negative for any acute stroke or metastases, SOB from CHF exacerbation, She comes in today at the urging of the public health nurse for high blood sugars. Apparently after going home yesterday afternoon. She had a good dinner then at around 10:30 PM she got up from her chair to go to bed and she just fell down on the floor. She didn't have any loss of consciousness, didn't have any trauma, didn't hit her head. She could not get up from the floor, so had to call the EMS. EMS found her sugar to be over 500, but the patient refused to come back to them emergency room. She reports that she took her 34 units of insulin at night and went to bed. This morning she drove to her friend's place as the public health nurse was coming to their to teach her friend how to drain the fluid. There, she mentioned her high sugars. The night before. The nurse checked her sugars again it was over 400, so the nurse urged her to come to the emergency room. In the ED she was found to be dehydrated, hyperglycemic and had JUAN and so was admitted to the hospitalist service. JUAN Likely dehydrated from hyperglycemia, diuretics and SAMEER inhibitor Torsemide and lisinopril went well recently had started during the last hospitalization In the beginning of November she used to be on Lasix 60 mg twice a day. I'm unsure if she was taking both her Lasix and torsemide Will hold all diuretics and SAMEER inhibitor 1 L IVF given Diabetes with them, hyperglycemia Her A1c is 10.6, which used to be in 7-8 range. Last year Will continue with them Levemir 45 units at bedtime She also takes Victoza at home Hypertension Lisinopril. If needed, will give amlodipine Hyperlipidemia Simvastatin History of DVT Continues Xarelto Metastatic invasive ductal carcinoma of the right breast,hormone receptor positive with chronic right-sided pleural effusion has Pleurx catheter in place on Ibrance and Faslodex. CT chest on 12/11/2020 read as Moderate right pleural effusion and right basilar atelectasis slightly increased from prior examination despite right-sided chest tube in stable position. On trying to drain the Pleurx catheter. During the prior admission and even today only 10-15 mL of fluid came out. I discussed the CT with Dr Agrawal and he thinks that it is minimal effusion. He is going to have a look at the Pleurx catheter tomorrow. Diastolic CHF, chronic Patient at present appears dehydrated Will hold diuretics Gait instability and fall at home Home safety eval. Plan/VTE VTE Prophylaxis Ordered?: Yes VS, I&O, 24H, Tristonbonvance Vital Signs/I&O Vital Signs Date Time Temp Pulse Resp B/P (MAP) Pulse Ox O2 Delivery O2 Flow Rate FiO2 12/16/20 06:00 97.8 68 17 139/69 (92) 98 Room Air I&O- Last 24 Hours up to 6 AM 12/16/20 06:00 Intake Total 1830 ml Output Total 1590 ml Balance 240 ml Laboratory Data 24H LABS Laboratory Tests 2 12/15/20 12:44: Bedside Glucose (Misc Panel) 251H 12/15/20 19:40: Bedside Glucose (Misc Panel) 432H 12/15/20 21:06: Bedside Glucose (Misc Panel) 396H 12/16/20 06:32: Immature Granulocyte % (Auto) 0.3, Neutrophils (%) (Auto) 56.6, Lymphocytes (%) (Auto) 30.9, Monocytes (%) (Auto) 11.0H, Eosinophils (%) (Auto) 0.7, Basophils (%) (Auto) 0.5, Neutrophils # (Auto) 3.3, Lymphocytes # (Auto) 1.8, Monocytes # (Auto) 0.6, Eosinophils # (Auto) 0.0, Basophils # (Auto) 0.0, Nucleated Red Blood Cells % (auto) 0.0, Anion Gap 6L, Glomerular Filtration Rate 44.4, Calcium Level 8.8 CBC/BMP Laboratory Tests 12/16/20 06:32 LAUREL FARIAS MD Dec 16, 2020 08:03
[2020-12-16] MEDS: VENLAFAXINE 37.5 MG TAB PO SCH ×2 (09:10→20:26)
[2020-12-16] MEDS: LEVEMIR (INSULIN DETEMIR) 1 UNITS/0.01ML SC SCH ×2 (10:02→20:26)
--- NOTE | 2020-12-16 11:54 | IPNPDOC ---
Subjective Date Seen The patient was seen on 12/16/20. Subjective Chief Complaint/HPI No complaints this morning. Sitting up in chair in no discomfort. Objective Physical Examination General Exam: Positive: Alert, Cooperative, No Acute Distress Eye Exam: Positive: PERRLA, Conjunctiva & lids normal, EOMI; Negative: Sclera icteric ENT Exam: Positive: Atraumatic, Mucous membr. moist/pink, Pharynx Normal Neck Exam: Positive: Supple; Negative: JVD, thyromegaly Chest Exam: Positive: Clear to auscultation, Normal air movement, Diminished (on the right. ) Heart Exam: Positive: Rate Normal, Regular Rhythm, Normal S1, Normal S2; Negative: Murmurs, Rubs Abdomen Exam: Positive: Normal bowel sounds, Soft, Other (umbilical hernia); Negative: Tenderness Extremity Exam: Negative: Clubbing, Cyanosis, Edema Assessment /Plan Assessment 75-year-old female with metastatic breast cancer, diabetes, hypertension, diastolic CHF, mitral valvular disease recurrent malignant right pleural effusion with Pleurx catheter in place was admitted in the hospital from 12/11/2020 to 12/13/2020 for aphasia with MRI brain negative for any acute stroke or metastases, SOB from CHF exacerbation, She comes in today at the urging of the public health nurse for high blood sugars. Apparently after going home yesterday afternoon. She had a good dinner then at around 10:30 PM she got up from her chair to go to bed and she just fell down on the floor. She didn't have any loss of consciousness, didn't have any trauma, didn't hit her head. She could not get up from the floor, so had to call the EMS. EMS found her sugar to be over 500, but the patient refused to come back to them emergency room. She reports that she took her 34 units of insulin at night and went to bed. This morning she drove to her friend's place as the public health nurse was coming to their to teach her friend how to drain the fluid. There, she mentioned her high sugars. The night before. The nurse checked her sugars again it was over 400, so the nurse urged her to come to the emergency room. In the ED she was found to be dehydrated, hyperglycemic and had JUAN and so was admitted to the hospitalist service. JUAN resolved Likely dehydration from hyperglycemia, diuretics and SAMEER inhibitor Torsemide and lisinopril were recently started during the last hospitalization In the beginning of November she used to be on Lasix 60 mg twice a day. I'm unsure if she was taking both her Lasix and torsemide Will hold all diuretics and SAMEER inhibitor 1 L IVF given Diabetes with them, hyperglycemia Her A1c is 10.6, which used to be in 7-8 range. Last year Sugars uncontrolled. Will continue with Levemir dosage and timing adjusted. She also takes Victoza at home She has only 1 meal a day at 4 pm. Hypertension Not needing any hypertensives in the hospital. If needed, will give amlodipine Hyperlipidemia Simvastatin History of DVT Continues Xarelto Metastatic invasive ductal carcinoma of the right breast,hormone receptor positive with chronic right-sided pleural effusion has Pleurx catheter in place on Ibrance and Faslodex. CT chest on 12/11/2020 read as Moderate right pleural effusion and right basilar atelectasis slightly increased from prior examination despite right-sided chest tube in stable position. On trying to drain the Pleurx catheter. During the prior admission and even today only 10-15 mL of fluid came out. I discussed the CT with Dr Agrawal and he thinks that it is minimal effusion. Diastolic CHF, chronic euvolemia Will hold diuretics Gait instability and fall at home Home safety eval completed Plan/VTE VTE Prophylaxis Ordered?: Yes VS, I&O, 24H, Fishbone Vital Signs/I&O Vital Signs Date Time Temp Pulse Resp B/P (MAP) Pulse Ox O2 Delivery O2 Flow Rate FiO2 12/16/20 06:00 97.8 68 17 139/69 (92) 98 Room Air I&O- Last 24 Hours up to 6 AM 12/16/20 06:00 Intake Total 1830 ml Output Total 1590 ml Balance 240 ml Laboratory Data 24H LABS Laboratory Tests 2 12/15/20 12:44: Bedside Glucose (Misc Panel) 251H 12/15/20 19:40: Bedside Glucose (Misc Panel) 432H 12/15/20 21:06: Bedside Glucose (Misc Panel) 396H 12/16/20 06:32: Immature Granulocyte % (Auto) 0.3, Neutrophils (%) (Auto) 56.6, Lymphocytes (%) (Auto) 30.9, Monocytes (%) (Auto) 11.0H, Eosinophils (%) (Auto) 0.7, Basophils (%) (Auto) 0.5, Neutrophils # (Auto) 3.3, Lymphocytes # (Auto) 1.8, Monocytes # (Auto) 0.6, Eosinophils # (Auto) 0.0, Basophils # (Auto) 0.0, Nucleated Red Blood Cells % (auto) 0.0, Anion Gap 6L, Glomerular Filtration Rate 44.4, Calcium Level 8.8 CBC/BMP Laboratory Tests 12/16/20 06:32 LAUREL FARIAS MD Dec 16, 2020 11:54
[2020-12-16 14:00] VITALS: BP 118/59
[2020-12-16] MEDS: RIVAROXABAN 20 MG TAB (XARELTO) PO SCH (17:51)
[2020-12-16] MEDS: ASPIRIN 81MG ENTERIC TABLET PO SCH (20:26)
[2020-12-16] MEDS: SIMVASTATIN 20 MG TAB PO SCH (20:26)
[2020-12-16] MEDS ORDERED: HumaLOG INSULIN (NovoLOG) PER UNIT SC SCH (21:00)
[2020-12-16 22:00] VITALS: BP 176/79
[2020-12-17 06:00] VITALS: BP 158/72
[2020-12-17 06:15] LABS: BASO % 0.5 % (0.0-1.0); EOS # 0.1 10^3/uL (0.0-0.5); EOS % 1.2 % (0.0-3.0); HEMATOCRIT 34.9 % (36.0-47.0); LYMPH # 1.8 10^3/uL (1.5-5.0); LYMPH % 31.1 % (24.0-44.0); MEAN CORPUSCULAR HEMOGLOBIN 29.6 pg (27.0-33.0); MEAN CORPUSCULAR HGB CONC 31.5 g/dl (32.0-36.5); MEAN CORPUSCULAR VOLUME 93.8 fl (80.0-96.0); MONO # 0.6 10^3/uL (0.0-0.8); MONO % 10.7 % (2.0-8.0); NEUTROPHILS # 3.2 10^3/uL (1.5-8.5); PLATELET COUNT, AUTOMATED 235 10^3/uL (150-450); RED BLOOD COUNT 3.72 10^6/uL (4.00-5.40); WHITE BLOOD COUNT 5.8 10^3/uL (4.0-10.0)
[2020-12-17 06:44] LABS: CALCIUM LEVEL 8.5 MG/DL (8.8-10.2); CREATININE FOR GFR 1.15 MG/DL (0.55-1.30); GLOMERULAR FILTRATION RATE 48.8 (>39); POTASSIUM SERUM 4.6 MEQ/L (3.5-5.1)
[2020-12-17] MEDS: HumaLOG INSULIN (NovoLOG) PER UNIT SC SCH ×3 (07:30→18:09)
[2020-12-17] MEDS: VENLAFAXINE 37.5 MG TAB PO SCH ×2 (09:18→20:16)
[2020-12-17] MEDS: LEVEMIR (INSULIN DETEMIR) 1 UNITS/0.01ML SC SCH ×2 (09:18→20:16)
--- NOTE | 2020-12-17 13:29 | IPNPDOC ---
Subjective Date Seen The patient was seen on 12/17/20. Subjective Chief Complaint/HPI Patient does not have any complaints today. However her sugars during the day has been persistently over 300. Though her glucose in the 6 am lab was only 73. I have adjusted her insulin and will monitor her 1 more day. I have stopped her HS lispro insulin. Objective Physical Examination General Exam: Positive: Alert, Cooperative, No Acute Distress Eye Exam: Positive: PERRLA, Conjunctiva & lids normal, EOMI; Negative: Sclera icteric ENT Exam: Positive: Atraumatic, Mucous membr. moist/pink, Pharynx Normal Neck Exam: Positive: Supple; Negative: JVD, thyromegaly Chest Exam: Positive: Clear to auscultation, Normal air movement, Diminished (on the right. ) Heart Exam: Positive: Rate Normal, Regular Rhythm, Normal S1, Normal S2; Negative: Murmurs, Rubs Abdomen Exam: Positive: Normal bowel sounds, Soft, Other (umbilical hernia); Negative: Tenderness Extremity Exam: Negative: Clubbing, Cyanosis, Edema Assessment /Plan Assessment 75-year-old female with metastatic breast cancer, diabetes, hypertension, diastolic CHF, mitral valvular disease recurrent malignant right pleural effusion with Pleurx catheter in place was admitted in the hospital from 12/11/2020 to 12/13/2020 for aphasia with MRI brain negative for any acute stroke or metastases, SOB from CHF exacerbation, She comes in today at the urging of the public health nurse for high blood sugars. Apparently after going home yesterday afternoon. She had a good dinner then at around 10:30 PM she got up from her chair to go to bed and she just fell down on the floor. She didn't have any loss of consciousness, didn't have any trauma, didn't hit her head. She could not get up from the floor, so had to call the EMS. EMS found her sugar to be over 500, but the patient refused to come back to them emergency room. She reports that she took her 34 units of insulin at night and went to bed. This morning she drove to her friend's place as the public health nurse was coming to their to teach her friend how to drain the fluid. There, she mentioned her high sugars. The night before. The nurse checked her sugars again it was over 400, so the nurse urged her to come to the emergency room. In the ED she was found to be dehydrated, hyperglycemic and had JUAN and so was admitted to the hospitalist service. JUAN resolved Likely dehydration from hyperglycemia, diuretics and SAMEER inhibitor Torsemide and lisinopril were recently started during the last hospitalization In the beginning of November she used to be on Lasix 60 mg twice a day. I'm unsure if she was taking both her Lasix and torsemide Will hold all diuretics and SAMEER inhibitor 1 L IVF given Diabetes with them, hyperglycemia Her A1c is 10.6, which used to be in 7-8 range. Last year Sugars uncontrolled. Will continue with Levemir dosage and timing adjusted. She also takes Victoza at home She has only 1 meal a day at 4 pm. Hypertension Not needing any hypertensives in the hospital. If needed, will give amlodipine Hyperlipidemia Simvastatin History of DVT Continues Xarelto Metastatic invasive ductal carcinoma of the right breast,hormone receptor positive with chronic right-sided pleural effusion has Pleurx catheter in place on Ibrance and Faslodex. CT chest on 12/11/2020 read as Moderate right pleural effusion and right basilar atelectasis slightly increased from prior examination despite right-sided chest tube in stable position. On trying to drain the Pleurx catheter. During the prior admission and even today only 10-15 mL of fluid came out. I discussed the CT with Dr Agrawal and he thinks that it is minimal effusion. Diastolic CHF, chronic euvolemia Will hold diuretics Gait instability and fall at home Home safety eval completed Plan/VTE VTE Prophylaxis Ordered?: Yes VS, I&O, 24H, Fishbone Vital Signs/I&O Vital Signs Date Time Temp Pulse Resp B/P (MAP) Pulse Ox O2 Delivery O2 Flow Rate FiO2 12/17/20 06:00 97.8 76 17 158/72 (100) 97 Room Air I&O- Last 24 Hours up to 6 AM 12/17/20 06:00 Intake Total 1660 ml Output Total 2950 ml Balance -1290 ml Laboratory Data 24H LABS Laboratory Tests 2 12/16/20 16:29: Bedside Glucose (Misc Panel) 399H 12/16/20 20:07: Bedside Glucose (Misc Panel) 343H 12/17/20 05:57: Immature Granulocyte % (Auto) 0.5, Neutrophils (%) (Auto) 56.0, Lymphocytes (%) (Auto) 31.1, Monocytes (%) (Auto) 10.7H, Eosinophils (%) (Auto) 1.2, Basophils (%) (Auto) 0.5, Neutrophils # (Auto) 3.2, Lymphocytes # (Auto) 1.8, Monocytes # (Auto) 0.6, Eosinophils # (Auto) 0.1, Basophils # (Auto) 0.0, Nucleated Red Blood Cells % (auto) 0.0, Anion Gap 5L, Glomerular Filtration Rate 48.8, Calcium Level 8.5L 12/17/20 11:39: Bedside Glucose (Misc Panel) 320H CBC/BMP Laboratory Tests 12/17/20 05:57 LAUREL FARIAS MD Dec 17, 2020 13:29
[2020-12-17 14:00] VITALS: BP 131/68
[2020-12-17] MEDS: RIVAROXABAN 20 MG TAB (XARELTO) PO SCH (18:09)
[2020-12-17] MEDS: SIMVASTATIN 20 MG TAB PO SCH (20:16)
[2020-12-17] MEDS: ACETAMINOPHEN 650MG ER TAB (TYLENOL ARTHRITIS) PO PRN (20:16)
[2020-12-17] MEDS: ASPIRIN 81MG ENTERIC TABLET PO SCH (20:16)
[2020-12-17 22:00] VITALS: BP 145/78
[2020-12-18 06:00] VITALS: BP 152/81
[2020-12-18 06:22] LABS: BASO % 0.3 % (0.0-1.0); EOS % 0.5 % (0.0-3.0); HEMATOCRIT 34.1 % (36.0-47.0); HEMOGLOBIN 11.1 g/dl (12.0-15.5); LYMPH # 0.7 10^3/uL (1.5-5.0); MEAN CORPUSCULAR HEMOGLOBIN 30.6 pg (27.0-33.0); MEAN CORPUSCULAR HGB CONC 32.6 g/dl (32.0-36.5); MEAN CORPUSCULAR VOLUME 93.9 fl (80.0-96.0); MONO # 0.4 10^3/uL (0.0-0.8); MONO % 7.1 % (2.0-8.0); NEUTROPHILS # 4.7 10^3/uL (1.5-8.5); NEUTROPHILS % 79.4 % (36.0-66.0); PLATELET COUNT, AUTOMATED 200 10^3/uL (150-450); RED BLOOD COUNT 3.63 10^6/uL (4.00-5.40); WHITE BLOOD COUNT 5.9 10^3/uL (4.0-10.0)
[2020-12-18 06:45] LABS: CALCIUM LEVEL 8.5 MG/DL (8.8-10.2); CREATININE FOR GFR 1.08 MG/DL (0.55-1.30); GLOMERULAR FILTRATION RATE 52.5 (>39); POTASSIUM SERUM 4.6 MEQ/L (3.5-5.1)
[2020-12-18] MEDS: VENLAFAXINE 37.5 MG TAB PO SCH ×2 (07:53→20:56)
[2020-12-18] MEDS: HumaLOG INSULIN (NovoLOG) PER UNIT SC SCH ×3 (07:53→17:36)
[2020-12-18] MEDS: LEVEMIR (INSULIN DETEMIR) 1 UNITS/0.01ML SC SCH ×2 (07:54→20:56)
[2020-12-18] MEDS: ACETAMINOPHEN 650MG ER TAB (TYLENOL ARTHRITIS) PO PRN (07:59)
[2020-12-18] MEDS ORDERED: LEVEMIR (INSULIN DETEMIR) 1 UNITS/0.01ML SQ ONE (11:20)
--- NOTE | 2020-12-18 11:57 | IPN ---
PROGRESS NOTE DATE: 12/18/2020 SUBJECTIVE: Patient complains of generalized weakness. No dizziness, lightheadedness, chest pain, pressure, tightness, dysuria, urgency, frequency, fever or chills, PND or orthopnea. No headaches, changes in vision. PHYSICAL EXAMINATION: VITAL SIGNS: Temperature 97.1, pulse 74, respiratory rate 20, blood pressure 152/81, 97% on room air. GENERAL: Awake, alert and oriented x3. Answering questions appropriately. LUNGS: Clear to auscultation. No wheezing, rales or rhonchi. HEART: S1, S2, sinus rhythm. ABDOMEN: Soft, nontender, non-distended. Positive bowel sounds. Umbilical hernia noted. EXTREMITIES: No cyanosis, clubbing or pitting edema. MICROBIOLOGY/IMAGING STUDIES/LABORATORY DATA: Reviewed. ASSESSMENT AND PLAN: This is a 75-year-old with metastatic breast cancer, diabetes, hypertension, diastolic heart failure,right pleural effusion with PleurX catheter in place, admitted 12/11 to 12/13/2020 for aphasia. MRI negative. Shortness of breath for CHF returned due to uncontrolled type 2 diabetes. IMPRESSION: 1. Type 2 diabetes: Uncontrolled A1C of 10.6. Currently on Levemir insulin, will increase morning dose and continue on fingersticks q.a.c. and q.h.s. with sliding scale coverage. If stable, may discharge in the morning. 2. Acute kidney injury due to hyperglycemia and dehydration: Diuretics and SAMEER inhibitor. Patient's diuretics were held. She has been given I.V. fluids now with normal creatinine of 1.08, no signs of fluid overload. 3. Hypertension: Uncontrolled, not on medications. Patient's creatinine on admission was 1.83. Will resume back on home dose of Lisinopril 20 mg q.h.s. 4. Recurrent breast cancer with malignant pleural effusion with a PleurX catheter. DISPOSITION: Patient will need home care as an outpatient. If glucose is stable tomorrow, may be discharged home in the morning if blood pressure and glucose are controlled. [facility]
[2020-12-18 14:00] VITALS: BP 152/74
[2020-12-18] MEDS: RIVAROXABAN 20 MG TAB (XARELTO) PO SCH (17:36)
[2020-12-18] MEDS: ASPIRIN 81MG ENTERIC TABLET PO SCH (20:56)
[2020-12-18] MEDS: SIMVASTATIN 20 MG TAB PO SCH (20:56)
[2020-12-18 22:00] VITALS: BP 165/83
[2020-12-19 06:00] VITALS: BP 155/74
[2020-12-19 06:37] LABS: HEMATOCRIT 34.3 % (36.0-47.0); HEMOGLOBIN 11.1 g/dl (12.0-15.5); MEAN CORPUSCULAR HEMOGLOBIN 30.2 pg (27.0-33.0); MEAN CORPUSCULAR HGB CONC 32.4 g/dl (32.0-36.5); MEAN CORPUSCULAR VOLUME 93.5 fl (80.0-96.0); PLATELET COUNT, AUTOMATED 179 10^3/uL (150-450); RED BLOOD COUNT 3.67 10^6/uL (4.00-5.40); WHITE BLOOD COUNT 2.8 10^3/uL (4.0-10.0)
[2020-12-19 07:06] LABS: CALCIUM LEVEL 8.5 MG/DL (8.8-10.2); CREATININE FOR GFR 1.02 MG/DL (0.55-1.30); GLOMERULAR FILTRATION RATE 56.1 (>39)
[2020-12-19] MEDS: HumaLOG INSULIN (NovoLOG) PER UNIT SC SCH ×2 (07:18→11:54)
[2020-12-19 08:15] LABS: ANISOCYTOSIS 1+; ATYPICAL LYMPH 2 % (0-5); LYMPHOCYTES 24 % (16-44); MONOCYTES 12 % (0-5); NEUTROPHILS 62 % (28-66); PLATELET ESTIMATE NORMAL (NORMAL)
[2020-12-19] MEDS ORDERED: LEVEMIR (INSULIN DETEMIR) 1 UNITS/0.01ML SC ONE (08:20)
[2020-12-19] MEDS ORDERED: BASA100I SC ×2 (08:23)
[2020-12-19] MEDS ORDERED: TORS10TA3 PO (08:23)
[2020-12-19] MEDS ORDERED: LEVEMIR (INSULIN DETEMIR) 1 UNITS/0.01ML SC SCH (09:00)
[2020-12-19] MEDS ORDERED: TORSEMIDE 10 MG TABLET PO SCH (09:00)
[2020-12-19] MEDS: VENLAFAXINE 37.5 MG TAB PO SCH (09:15)
[2020-12-19] MEDS ORDERED: SELF1KIT MC (10:44)
[2020-12-19] MEDS ORDERED: NORV5TAB PO (10:44)
[2020-12-19] MEDS ORDERED: amLODIPine 5 MG TAB PO ONE (10:45)
[2020-12-19 11:18] VITALS: BP 146/69
--- NOTE | 2020-12-19 15:50 | DSES ---
DISCHARGE SUMMARY DATE OF ADMISSION: 12/14/2020 DATE OF DISCHARGE: 12/19/2020 PRIMARY DISCHARGE DIAGNOSES: 1. Acute kidney injury due to dehydration form diuretics, angiotensin-converting enzyme (SAMEER) inhibitor, and hyperglycemia. 2. Uncontrolled type 2 diabetes with hyperglycemia. Hemoglobin A1c of 10.6. 3. Hypertension. 4. Hyperlipidemia. 5. History of deep venous thrombosis (DVT), on chronic Xarelto. 6. History of metastatic invasive ductal carcinoma of the right breast with right-sided PleurX catheter in place. 7. Diastolic congestive heart failure, compensated. 8. Gait instability and fall at home. DISCHARGE MEDICATIONS: - Norvasc 5 daily - Basaglar insulin 25 units every morning. - Basaglar insulin 30 units every night - torsemide 10 daily - acetaminophen 650 every 8 as needed - aspirin 81 every night - vitamin D 1000 units every night - Fulvestrant 500 mg intramuscularly (IM) every month - iron one capsule every night - Victoza 1.2 mg every night - lisinopril 20 mg every night - Xarelto 20 every night - simvastatin 20 every night - venlafaxine 75 twice a day DISCHARGE INSTRUCTIONS: Followup with primary care physician within 5 days of discharge for blood pressure check and glucose monitoring. HOSPITAL COURSE: This is a 75-year-old female admitted from December 11 to December 13 for aphasia with MRI negative for acute stroke and metastasis, shortness of breath from congestive heart failure (CHF), presented to the emergency room with uncontrolled glucose at home. Patient fell down on the floor after getting up from the chair around 10:30 p.m. at home. Did not have any loss of consciousness, trauma, and did not hit her head. Emergency medical services (EMS) was called. She was found to have glucose over 500. Patient drove to her friend's house, and when her home care nurse saw that her sugars were over 400, she was encouraged to come to the emergency room (ER) and was found to have dehydration, hyperglycemia, and acute kidney injury and admitted to the hospitalist service. Patient's torsemide and lisinopril were held. One liter of intravenous (IV) fluids given with resolution of the acute kidney injury, back to baseline creatinine for hyperglycemia with A1c of 10.6 with usual range of 7-8. Her Levemir insulin was increased to 30 units every night and 25 units every morning. She had no episodes of hypoglycemia. Creatinine remained normal at 1.02. Her blood pressure was elevated at 120-165, Norvasc was started, and she was resumed back on her home dose of torsemide and lisinopril. Torsemide was decreased to 10 mg daily due to recent acute kidney injury. She appeared to be euvolemic during this admission. PleurX catheter has been drained once a week as outpatient. She had had about 5 mL out on 12/17/2020. Current weight is 75.8 kg from admission weight of 77.7 kg. PHYSICAL EXAMINATION: On discharge, temperature 96.4, pulse 70, respiratory rate 18, blood pressure 155/74, 98% on room air. GENERAL: Patient is awake, alert, oriented to person, place, and time, answering questions appropriately. HEENT: No jugular venous distention (JVD), thyromegaly, cervical lymphadenopathy. LUNGS: Clear to auscultation. Diminished on the right. ABDOMEN: Soft, nontender, nondistended. Reducible umbilical hernia. EXTREMITIES: No cyanosis, clubbing, or pitting edema. PleurX catheter is noted, 5 mL output. LABORATORY DATA ON DISCHARGE: White count 2.8, hemoglobin 11, hematocrit 34, platelet count 179. Sodium 139, potassium 4, chloride 105, bicarbonate 29, BUN 32, creatinine 1, glucose 87. TIME SPENT ON DISCHARGE: 30 minutes. MTDD
[2020-12-20] MEDS ORDERED: amLODIPine 5 MG TAB PO SCH (09:00)
== END 2020-12-19 15:13 | disposition home health service (06) | DRG 638 ==
LOC: M ED 13:18 → EDBD 13:18 → M ED INP 16:06 → ENRESERVDT 16:31 → ENRESERVTM 16:31 → M MSPAV 18:15
PROVIDERS: ADMIT Internal Medicine Nephrology; ATTEND General Practice
DX: E11.65 Type 2 diabetes mellitus with hyperglycemia (principal); N17.9 Acute kidney failure, unspecified; I13.0 Hypertensive heart and chronic kidney disease with heart failure and stage 1 through stage 4 chronic kidney disease, or unspecified chronic kidney disease; I50.32 Chronic diastolic (congestive) heart failure; J91.0 Malignant pleural effusion; C78.00 Secondary malignant neoplasm of unspecified lung; N18.30 Chronic kidney disease, stage 3 unspecified; C50.911 Malignant neoplasm of unspecified site of right female breast; E78.5 Hyperlipidemia, unspecified; Z79.01 Long term (current) use of anticoagulants; Z86.718 Personal history of other venous thrombosis and embolism; Z79.4 Long term (current) use of insulin; Z79.899 Other long term (current) drug therapy; Z79.82 Long term (current) use of aspirin; Z88.8 Allergy status to other drugs, medicaments and biological substances; Z98.41 Cataract extraction status, right eye; Z98.42 Cataract extraction status, left eye; E86.0 Dehydration

== ENCOUNTER 2020-12-25 12:54 | Inpatient (IN) | payer MEDICARE ==
[~2020-12-25] VITALS: Ht 167.6 cm; Wt 74.9 kg
[~2020-12-25 12:54] MED LIST changes: +NORV5TAB PO; +OMEP40CA4 PO; -OMEP40CA97 PO; +SELF1KIT MC; +TORS10TA3 PO
[2020-12-25] MEDS ORDERED: NS 1,000 ML IV SCH ×3 (13:10→20:00)
[2020-12-25 14:06] LABS: VENOUS BASE EXCESS -7.8 (-2.0-2.0); VENOUS HCO3 20.2 MEQ/L (23.0-27.0); VENOUS PARTIAL PRESSURE CO2 50.9 mmHg (38.0-50.0); VENOUS PH 7.217 UNITS (7.330-7.430); VENOUS STANDARD HCO3 17.5 MEQ/L; VENOUS TOTAL CO2 21.8 MEQ/L (24.0-28.0)
[2020-12-25 14:08] LABS: BASO % 0.2 % (0.0-1.0); HEMATOCRIT 45.5 % (36.0-47.0); HEMOGLOBIN 13.4 g/dl (12.0-15.5); LYMPH # 0.9 10^3/uL (1.5-5.0); MEAN CORPUSCULAR HEMOGLOBIN 30.2 pg (27.0-33.0); MEAN CORPUSCULAR HGB CONC 29.5 g/dl (32.0-36.5); MEAN CORPUSCULAR VOLUME 102.5 fl (80.0-96.0); MONO # 0.6 10^3/uL (0.0-0.8); MONO % 6.5 % (2.0-8.0); NEUTROPHILS # 7.3 10^3/uL (1.5-8.5); NEUTROPHILS % 82.7 % (36.0-66.0); PLATELET COUNT, AUTOMATED 208 10^3/uL (150-450); RED BLOOD COUNT 4.44 10^6/uL (4.00-5.40); WHITE BLOOD COUNT 8.8 10^3/uL (4.0-10.0)
--- NOTE | 2020-12-25 14:27 | REPVR ---
PROCEDURE INFORMATION: Exam: CT Head Without Contrast Exam date and time: 12/25/2020 1:51 PM Age: 75 years old Clinical indication: Injury or trauma; Fall; Blunt trauma (contusions or hematomas) TECHNIQUE: Imaging protocol: Computed tomography of the head without contrast. Radiation optimization: All CT scans at this facility use at least one of these dose optimization techniques: automated exposure control; mA and/or kV adjustment per patient size (includes targeted exams where dose is matched to clinical indication); or iterative reconstruction. COMPARISON: CT Head without contrast 12/11/2020 4:06 PM FINDINGS: Brain: There is no acute intracranial hemorrhage, cerebral edema, or midline shift. Chronic microvascular ischemic changes are seen in the periventricular white matter. Age-related cerebral and cerebellar volume loss is present. Cerebral ventricles: Mild ex vacuo dilation of the lateral and third ventricles is noted. Paranasal sinuses: There is no acute sinusitis. A mucous retention cyst is present in the right maxillary sinus. Mastoid air cells: The mastoid air cells are clear. Orbital cavity: The included orbital structures are unremarkable. Vasculature: Atherosclerotic calcifications are seen involving the cavernous carotid arteries. Bones/joints: No acute fracture. Soft tissues: Mild right periorbital and forehead soft tissue swelling is present. IMPRESSION: 1. No acute intracranial abnormality. 2. Atrophy and chronic deep white matter ischemic changes. Electronically signed by: Jameson Cazares On 12/25/2020 14:27:24 PM
[2020-12-25 14:30] LABS: INR 1.17; PROTHROMBIN TIME 15.2 SECONDS (12.5-14.3)
[2020-12-25 14:33] LABS: RSV AMPLIFICATION NEGATIVE (NEGATIVE)
--- NOTE | 2020-12-25 14:43 | REP ---
INDICATION: SEPSIS/SHOCK. COMPARISON: Multiple latest 12/11/2020 TECHNIQUE: Portable FINDINGS: The technique utilized in obtaining the radiograph has magnified the cardiac silhouette and accentuated the interstitial markings. The cardiomediastinal silhouette is unchanged. The right-sided thoracotomy tube is unchanged. In patchy airspace opacities in the right lower lobe are essentially unchanged, however, there is new thickening along the right lateral pleura. Right-sided costophrenic angle and cardiophrenic angle blunting is again noted. The left lung is clear and stable. There is no significant change in the appearance of the osseous structures. IMPRESSION: 1. Patchy parenchymal opacities in the right lower lobe seen on the prior exam are essentially unchanged possibly minimally increased. 2. New pleural thickening on the right as described above possibly reflecting a loculated pleural effusion. 3. Right-sided chest tube is unchanged in position. <Electronically signed by Otto Lopez > 12/25/20 [id number]
--- NOTE | 2020-12-25 14:44 | REPVR ---
PROCEDURE INFORMATION: Exam: CT Cervical Spine Without Contrast Exam date and time: 12/25/2020 1:51 PM Age: 75 years old Clinical indication: Injury or trauma; Fall; Blunt trauma. History of metastatic breast cancer. TECHNIQUE: Imaging protocol: Computed tomography images of the cervical spine without contrast. Radiation optimization: All CT scans at this facility use at least one of these dose optimization techniques: automated exposure control; mA and/or kV adjustment per patient size (includes targeted exams where dose is matched to clinical indication); or iterative reconstruction. COMPARISON: PT PET/CT Skull/mid thigh 03/15/2019 12:22 PM FINDINGS: Bones/joints: Bone mineralization is decreased, suggestive of osteopenia. There is no acute fracture.There is straightening of the normal cervical lordosis. Discs/Spinal canal/Neural foramina: Severe degenerative changes of the cervical spine are present. There is no severe spinal canal stenosis. Multilevel neural foraminal narrowing from uncinate spurring and facet arthropathy is noted. Lungs: Nonspecific pleural thickening is noted along the medial right lung apex. Soft tissues: Unremarkable. IMPRESSION: 1. No acute abnormality. 2. Chronic findings as discussed above. Electronically signed by: Jameson Cazares On 12/25/2020 14:44:30 PM
[2020-12-25 14:45] LABS: ALBUMIN 2.7 GM/DL (3.2-5.2); ALT/SGPT 27 U/L (12-78); AMYLASE 85 U/L (25-115); BILIRUBIN,DIRECT < 0.1 MG/DL (0.0-0.2); BILIRUBIN,TOTAL 0.4 MG/DL (0.2-1.0); BLOOD UREA NITROGEN 111 MG/DL (7-18); C REACTIVE PROTEIN QUANTITATIV 8.11 MG/DL (0.00-0.30); CALCIUM LEVEL 9.9 MG/DL (8.8-10.2); CARBON DIOXIDE LEVEL 21 MEQ/L (21-32); CHLORIDE LEVEL 116 MEQ/L (98-107); CPK CREATINE PHOSPHOKINASE 589 U/L (26-192); GLOMERULAR FILTRATION RATE 16.8 (>39); GLUCOSE, FASTING 777 MG/DL (70-100); MB/CK RELATIVE INDEX 1.02 (< OR =4); POTASSIUM SERUM 4.9 MEQ/L (3.5-5.1); SODIUM LEVEL 153 MEQ/L (136-145); TOTAL PROTEIN 6.6 GM/DL (6.4-8.2); TROPONIN I 0.04 NG/ML (< 0.10)
[2020-12-25] MEDS ORDERED: HumuLIN R (REGULAR) INSULIN (NovoLIN R) **100U/ML** PER UNIT IV ONE (15:25)
[2020-12-25] MEDS ORDERED: INSULIN IV RATE CHANGE DOCUMENTATION ML/HR XX SCH (15:30)
[2020-12-25] MEDS ORDERED: INSULIN REGULAR IN 0.9 % NACL 100 UNIT in IV 1 EA IV SCH ×2 (15:30)
[2020-12-25] MEDS ORDERED: GLUCAGON INJ 1MG VIAL SC PRN (15:35)
[2020-12-25] MEDS ORDERED: DEXTROSE 50% 50 ML SYRINGE IV PRN (15:35)
[2020-12-25] MEDS ORDERED: MOM 30ML SUSPENSION UDC PO PRN (15:35)
[2020-12-25] MEDS ORDERED: MAALOX 30 ML SUSP *UDC PO PRN (15:35)
[2020-12-25] MEDS ORDERED: GLUCOSE 4GM CHEW TABLET PO PRN (15:35)
[2020-12-25] MEDS ORDERED: AMLO1TAB24 PO (15:54)
[2020-12-25] MEDS ORDERED: BASA100I SC ×2 (15:54)
[2020-12-25] MEDS ORDERED: TORS10TA3 PO (15:54)
[2020-12-25] MEDS ORDERED: HumaLOG INSULIN (NovoLOG) PER UNIT SC STA (16:07)
--- NOTE | 2020-12-25 16:10 | REP ---
INDICATION: loculated pleural effusion COMPARISON: 12/11/2020 contrast-enhanced exam and the latest prior. Older priors were also reviewed at this time. TECHNIQUE: Limited noncontrast enhanced standard helical technique FINDINGS: There is no significant change in appearance of the mediastinum or pulmonary sendy. There is no evidence of a mass or adenopathy. There is a right pleural effusion a portion of which may be loculated particularly along the lateral and anterolateral chest wall the effusion appears somewhat smaller compared to the prior exam. A right-sided thoracotomy tube is in place status quo. There is no significant change in appearance of the imaged upper abdomen or imaged osseous structures. Evaluation of the lung colmenares shows patchy and asymmetric right upper and right middle lobe opacities. The somewhat patchy appearing right lower lobe opacities have improved. IMPRESSION: 1. Right-sided pleural fluid as described above. 2. Patchy right lung field opacities likely subsegmental atelectatic changes. Follow-up is suggested. 3. Other findings as described above. <Electronically signed by Otto Lopez > 12/25/20 [id number]
[2020-12-25 17:19] LABS: OSMOLALITY SERUM 423 MOSM/KG (280-301)
[2020-12-25] MEDS ORDERED: HumaLOG INSULIN (NovoLOG) PER UNIT SC SCH (17:30)
[2020-12-25 17:51] LABS: ACETONE/KETONE > 46.00 MG/DL (<2.81)
[2020-12-25] MEDS ORDERED: NS 0.45% 1,000 ML IV ONE (20:25)
[2020-12-25 20:28] LABS: CALCIUM LEVEL 9.3 MG/DL (8.8-10.2); CREATININE FOR GFR 3.06 MG/DL (0.55-1.30); GLOMERULAR FILTRATION RATE 15.8 (>39); POTASSIUM SERUM 3.7 MEQ/L (3.5-5.1)
--- NOTE | 2020-12-25 20:37 | HPEPDOC ---
[facility] Medical History & Physical Date of Admission Dec 25, 2020 Date of Service: Dec 25, 2020 History and Physical CHIEF COMPLAINT: Fall HISTORY OF PRESENT ILLNESS: Ms. Santiago is a 75 y/o female with recent discharge from [facility] for FTT who was BIB EMS this afternoon after being found down with last known normal around 4 days prior when daughter spoke with her on the phone. is a poor historian and therefore HPI is limited, but spoke with daughter who states that patient has a caregiver who comes in several times per week and was unable to enter the house or reach the patient and thus called 911. 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 1 pleural fluid culture grew Kocuria Rosea. CKD stage 3 DM H/O DVT HLD depression Dizziness HTN Asthma Prior exposure to COVID Diastolic CHF Gait instability/falls PAST SURGICAL HISTORY: Right breast lumpectomy tubal ligation H/o right chest tube. bilateral cataract surgery Right Pleurex catheter placement. SOCIAL HISTORY: Marital status: Resides in: [place] Children: daughter,. Tobacco use: none ETOH: none FAMILY HISTORY FATHER: , LIVER DISEASE MOTHER: , GI BLEED DAUGHTER HAS MS ALLERGIES: Please see below. REVIEW OF SYSTEMS: Unable to obtain d/t patient poor historian, somnolent HOME MEDICATIONS: Please see below. PHYSICAL EXAMINATION: VITAL SIGNS: reviewed GENERAL APPEARANCE: right sided periorbital swelling c/w dependent edema, otherwise sleepy and wakes to loud verbal stimuli HEENT: AT with periorbital swelling on right, EOMI, PERRL CARDIOVASCULAR: regular rhythm, 3/6 holosystolic murmur at LUSB LUNGS: poor inspiratory effort but CTAB ABDOMEN: soft, non distended MUSCULOSKELETAL: No obvious defects, spine with no stepoffs EXTREMITIES: bruising and skin breakdown to right hip, right lateral lower ex tremity and abrasions over this area as well NEUROLOGICAL: sleepy but wakes to verbal stimuli, squeezes hand, faces are symmetric, strength 3/5 globally with no apparent pronator drift. Speech is not directed at this time. LABORATORY DATA: See below. IMAGING: CXR: IMPRESSION: 1. Patchy parenchymal opacities in the right lower lobe seen on the prior exam are essentially unchanged possibly minimally increased. 2. New pleural thickening on the right as described above possibly reflecting a loculated pleural effusion. 3. Right-sided chest tube is unchanged in position. Head CT: IMPRESSION: 1. No acute intracranial abnormality. 2. Atrophy and chronic deep white matter ischemic changes. CT CSpine: IMPRESSION: 1. No acute abnormality. 2. Chronic findings as discussed above. CT Chest: IMPRESSION: 1. Right-sided pleural fluid as described above. 2. Patchy right lung field opacities likely subsegmental atelectatic changes. Follow-up is suggested. 3. Other findings as described above. MICROBIOLOGY: NA ASSESSMENT: . 75 y/o female with difficulty thriving at home as evidenced by multiple recent readmissions presents after fall with hyperglycemia, hyponatremia, JUAN, and elevated cTNT. Will admit for management of acute issues and discussion about fdc goals of care with patient and family. PLAN: # IDDM: HA1c 10.4 on 12/14/2020, Patient is on IS and QAM and QHS long acting insulin. Pat ient has slight acidosis with negative base excess on VBG. Monitoring closely after covering with short acting insulin, low threshold to initiate insulin drip, however with no evidence of sepsis and hyperglycemia d/t medication non compliance, will trial intermittent insulin at this time and monitor FSBG and serum lactate. Hyperglycemia is complicated by hypernatremia which is corrected to 164 and also contributing to her AMS. - FSBG AC/QHS - Trend lactate Q4H - 1L 1/2 NS 100cc/hr x1 - BMP x1 now and then in 6 hours - ISS - Levemir 20U QHS and 15U QAM # CKD III with acute kidney injury: Baseline sCr of 1.02, increased today 2/2 poor PO intake and medication non compliance. Will provide with aggressive fluid resuscitation overnight and encourage PO intake following swallow eval at bedside. Patient does have slightly elevated cTNT, will continue to trend as well. Consider echo in the m orning pending overnight observation on telemetry as well as cTNT results. - Tele - cTNT trending - BMP in the AM - Fluid repletion as per above # Hypernatremia: Likely due to hemoconcentration, in setting of hyperglycemia the corrected sodium is 164. Will provide fluid repletion with 1/2 NS to avoid aggressively increasing serum sodium further. Will additionally bring down serum glucose with ISS and night time insulin. - Correction rate with 1/2NS is ~100cc/hr - repeat BMP in 6 hours - BMP QAM #AMS: Multifactorial in the setting of JUAN, Hypernatremia, and Hyperglycemia. No current evidence of infection. - day/night cycling - falls risk - swallow eval at bedside #HFpEF: Will closely monitor fluid status in setting of correcting hyperglycemia and hypernatremia, however renal impairment is more likely d/t poor po intake than acute decompensated heart failure with cardiorenal syndrome. - Continue home medications which patient likely has not been taking since recent discharge. - Consider echocardiogram in the AM - Trend cTNT #Chronic anemia: Improved, however patient is likely hemoconcentrated in setting of poor PO intake - daily CBCs #Hx DVTs: Hold Xarelto in setting of JUAN, transitioning to heparin SQ # HLD Continue home medications # Depression Continue home medications # HTN Continue home medications # Asthma Not currently taking medications, continue to monitor - IS at bedside Dispo: Med Surg floor with likely d/c to rehab or [facility]min exterminator care facility pending family discussion Code: Full Code (addressed with patient's daughter as patient was unable to corroborate this) Diet: Controlled carbohydrate diet pending swallow evaluation DVT Prophy: heparin SQ TID Consults: PT/OT, consider cardiology evaluation pending cTNT Vital Signs Vital Signs Date Time Temp Pulse Resp B/P (MAP) Pulse Ox O2 Delivery O2 Flow Rate FiO2 12/25/20 18:01 73 12/25/20 18:00 120/58 (78) 12/25/20 17:01 97 12/25/20 13:17 98.8 18 Room Air Laboratory Data Labs 24H Laboratory Tests 2 12/25/20 13:44: Immature Granulocyte % (Auto) 0.6, Neutrophils (%) (Auto) 82.7H, Lymphocytes (%) (Auto) 10.0L, Monocytes (%) (Auto) 6.5, Eosinophils (%) (Auto) 0.0, Basophils (%) (Auto) 0.2, Neutrophils # (Auto) 7.3, Lymphocytes # (Auto) 0.9L, Monocytes # (Auto) 0.6, Eosinophils # (Auto) 0.0, Basophils # (Auto) 0.0, Nucleated Red Blood Cells % (auto) 0.0, Prothrombin Time 15.2H, Prothromb Time International Ratio 1.17, Activated Partial Thromboplast Time 25.0, Blood Gas Bicarbonate Standard 17.5, Venous Blood pH 7.217L, Venous Blood Partial Pressure CO2 50.9H, Venous Blood Partial Pressure O2 30.0, Venous Blood Total Carbon Dioxide 21.8L, Venous Blood HCO3 20.2L, Venous Blood Oxygen Saturation 64.0, Venous Blood Base Excess -7.8L, Anion Gap 16, Glomerular Filtration Rate 16.8L, Osmolality 423H, Lactic Acid Level 2.2*H, Calcium Level 9.9, Total Bilirubin 0.4, Direct Bilirubin < 0.1, Aspartate Amino Transf (AST/SGOT) 18, Alanine Aminotransferase (ALT/SGPT) 27, Alkaline Phosphatase 111, Total Creatine Kinase 589H, Creatine Kinase MB 6.0H, Creatine Kinase MB Relative Index 1.02, Troponin I 0.04, C- Reactive Protein, Quantitative 8.11H, Total Protein 6.6, Albumin 2.7L, Albumin/Globulin Ratio 0.7L, Amylase Level 85, B-Hydroxybutyrate > 46.00H, Coronavirus (COVID-19)(PCR) NEGATIVE, Influenza Type A (RT-PCR) NEGATIVE, Influenza Type B (RT-PCR) NEGATIVE, Respiratory Syncytial Virus (PCR) NEGATIVE 12/25/20 18:21: 12/25/20 19:22: CBC/BMP Laboratory Tests 12/25/20 13:44 Microbiology Microbiology 12/25/20 Blood Culture, Received Pending 12/25/20 Blood Culture, Received Pending Home Medications Scheduled Amlodipine Besylate (Amlodipine Besylate) 5 Mg Tablet, 5 MG PO DAILY Aspirin (Aspirin EC) 81 Mg Tablet.dr, 81 MG PO QHS Cholecalciferol (Vitamin D3) (Vitamin D3) 1,000 Unit Tablet, 1,000 UNITS PO QHS Fulvestrant (Faslodex) 250 Mg/5 Ml Syringe, 500 MG IM QMONTH Insulin Glargine,Hum.rec.anlog (Basaglar Kwikpen U-100) 100 Unit/1 Ml Insuln.pen, 25 UNIT SC QAM Insulin Glargine,Hum.rec.anlog (Basaglar Kwikpen U-100) 100 Unit/1 Ml Insuln.pen, 30 UNIT SC QHS Iron Ps Complex/B12/Folic Acid (Poly-Iron 150 Forte Capsule) 1 Each Capsule, 1 CAP PO QHS Liraglutide (Victoza 2-Juan Carlos) 0.6 Mg/0.1 Ml Pen.injctr, 1.2 MG SC QHS Lisinopril (Lisinopril) 20 Mg Tablet, 20 MG PO QHS Rivaroxaban (Xarelto) 20 Mg Tablet, 20 MG PO QHS Simvastatin (Simvastatin) 20 Mg Tab, 20 MG PO QHS Torsemide (Torsemide) 10 Mg Tablet, 10 MG PO DAILY Venlafaxine HCl (Venlafaxine HCl) 75 Mg Tablet, 75 MG PO BID Scheduled PRN Acetaminophen (Tylenol Arthritis) 650 Mg Tablet.er, 650 MG PO Q8H PRN for PAIN Allergies Coded Allergies: adhesive tape (Verified Allergy, Intermediate, rash, 12/14/20) exenatide (Verified Adverse Reaction, Mild, itching, 12/25/20) A-FIB/CHADSVASC A-FIB History Current/History of A-Fib/PAF?: No Current PO Anticoag Therapy: Yes Age/Risk Factor Scoring CHADSVASC: CHADSVASC Response (Comments) Value Age Risk Factor Age >/= 75 years old 2 Gender Risk Factor Female 1 Hx of CHF Yes 1 Hx of HTN Yes 1 Hx of Stroke/TIA/or VTE No 0 Hx of Diabetes Yes 1 Hx of Vascular Disease Yes 1 Total 7 BIBIANA ONEIL MD MPH Dec 25, 2020 20:03
[2020-12-25] MEDS: VITAMIN D 1,000 INTERNATIONAL UNITS TABLET PO SCH (21:00)
[2020-12-25] MEDS: ASPIRIN 81MG ENTERIC TABLET PO SCH (21:00)
[2020-12-25] MEDS: SIMVASTATIN 20 MG TAB PO SCH (21:00)
[2020-12-25] MEDS ORDERED: LEVEMIR (INSULIN DETEMIR) 1 UNITS/0.01ML SC SCH (21:00)
[2020-12-25] MEDS ORDERED: RIVAROXABAN 20 MG TAB (XARELTO) PO SCH (21:00)
[2020-12-25] MEDS: VENLAFAXINE 37.5 MG TAB PO SCH (21:00)
--- NOTE | 2020-12-25 21:08 | ECGEPIP ---
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
[2020-12-25 22:15] LABS: CK-MB VALUE MASS 8.1 NG/ML (<3.6); MB/CK RELATIVE INDEX 1.07 (< OR =4); TROPONIN I 0.04 NG/ML (< 0.10)
[2020-12-25] MEDS ORDERED: SLF 3 ML SYR IV PRN (22:25)
[2020-12-25 22:30] VITALS: BP 141/64
[2020-12-25] MEDS: HEPARIN SOD (PORCINE) 5000UNITS/ML 1ML VIAL/SYRINGE SQ SCH ×2 (23:38→23:39)
[2020-12-25 23:50] LABS: VENOUS BASE EXCESS -2.7 (-2.0-2.0); VENOUS HCO3 23.8 MEQ/L (23.0-27.0); VENOUS O2 SATURATION 95.4 % (60.0-80.0); VENOUS PARTIAL PRESSURE CO2 48.2 mmHg (38.0-50.0); VENOUS PARTIAL PRESSURE O2 68.9 mmHg (30.0-50.0); VENOUS PH 7.312 UNITS (7.330-7.430); VENOUS STANDARD HCO3 22.1 MEQ/L; VENOUS TOTAL CO2 25.3 MEQ/L (24.0-28.0)
[2020-12-26] VITALS (7 sets, daily range): BP systolic 99–146; BP diastolic 49–83
[2020-12-26] MEDS ORDERED: NS 1,000 ML IV SCH
[2020-12-26 00:31] LABS: ACETONE/KETONE 13.49 MG/DL (<2.81); CALCIUM LEVEL 8.9 MG/DL (8.8-10.2); CREATININE FOR GFR 2.81 MG/DL (0.55-1.30); GLOMERULAR FILTRATION RATE 17.4 (>39); MAGNESIUM LEVEL 3.1 MG/DL (1.8-2.4); POTASSIUM SERUM 3.9 MEQ/L (3.5-5.1)
[2020-12-26 00:52] LABS: APPEARANCE, URINE TURBID (CLEAR); BACTERIA, URINE AUTO NEGATIVE (NEGATIVE); BILIRUBIN, URINE AUTO NEGATIVE (NEGATIVE); BLOOD, URINE BLOOD 2+ (NEGATIVE); COLOR, URINE YELLOW (YELLOW); GLUCOSE, URINE (UA) AUTO 3+ mg/dL (NEGATIVE); KETONE, URINE AUTO TRACE mg/dL (NEGATIVE); LEUKOCYTE ESTERASE, URINE AUTO 2+ (NEGATIVE); NITRITE, URINE AUTO NEGATIVE (NEGATIVE); PROTEIN, URINE AUTO 3+ mg/dL (NEGATIVE); RBC, URINE AUTO 32 /HPF (0-3); SPECIFIC GRAVITY URINE AUTO 1.018 (1.002-1.035); SQUAMOUS EPITHELIAL CELL UR AU 0 /HPF (0-6); UROBILINOGEN, URINE AUTO 0.2 mg/dL (0.0-2.0); WBC, URINE AUTO TNTC /HPF (0-3)
[2020-12-26] MEDS ORDERED: HumaLOG INSULIN (NovoLOG) PER UNIT SC STA (01:03)
[2020-12-26 03:03] LABS: CALCIUM LEVEL 8.9 MG/DL (8.8-10.2); CREATININE FOR GFR 2.79 MG/DL (0.55-1.30); GLOMERULAR FILTRATION RATE 17.6 (>39); POTASSIUM SERUM 3.8 MEQ/L (3.5-5.1)
[2020-12-26] MEDS ORDERED: HumaLOG INSULIN (NovoLOG) PER UNIT SC ONE ×2 (03:35→05:25)
[2020-12-26] MEDS: HumaLOG INSULIN (NovoLOG) PER UNIT SC SCH ×6 (03:39→20:00)
[2020-12-26 04:34] LABS: HEMATOCRIT 42.6 % (36.0-47.0); HEMOGLOBIN 12.7 g/dl (12.0-15.5); MEAN CORPUSCULAR HEMOGLOBIN 29.5 pg (27.0-33.0); MEAN CORPUSCULAR HGB CONC 29.8 g/dl (32.0-36.5); MEAN CORPUSCULAR VOLUME 98.8 fl (80.0-96.0); PLATELET COUNT, AUTOMATED 165 10^3/uL (150-450); RED BLOOD COUNT 4.31 10^6/uL (4.00-5.40); WHITE BLOOD COUNT 8.6 10^3/uL (4.0-10.0)
[2020-12-26 05:08] LABS: CREATININE FOR GFR 2.79 MG/DL (0.55-1.30); GLOMERULAR FILTRATION RATE 17.6 (>39); POTASSIUM SERUM 3.8 MEQ/L (3.5-5.1)
[2020-12-26] MEDS: NS 0.45% 1,000 ML IV SCH ×5 (05:39→21:17)
[2020-12-26] MEDS: HEPARIN SOD (PORCINE) 5000UNITS/ML 1ML VIAL/SYRINGE SQ SCH ×3 (05:40→21:17)
[2020-12-26] MEDS: SLF 3 ML SYR IV SCH ×3 (05:41→21:18)
[2020-12-26] MEDS ORDERED: amLODIPine 5 MG TAB PO SCH (09:00)
[2020-12-26] MEDS: TORSEMIDE 10 MG TABLET PO SCH (09:00)
[2020-12-26] MEDS ORDERED: LEVEMIR (INSULIN DETEMIR) 1 UNITS/0.01ML SC SCH ×2 (09:00)
[2020-12-26] MEDS: VENLAFAXINE 37.5 MG TAB PO SCH ×2 (09:00→20:18)
[2020-12-26] MEDS ORDERED: VANCOMYCIN HCL 750 MG, VIAL MATE ADAPTER 1 EACH in NS 250 ML IV SCH (10:10)
[2020-12-26] MEDS ORDERED: VANCOMYCIN INTERMITTENT/PULSE DOSING BY CLINICAL PHARMACIST PER DOSING PROTOCOL XX SCH (11:10)
[2020-12-26] MEDS ORDERED: VANCOMYCIN HCL 1,000 MG, VIAL MATE ADAPTER 1 EACH in NS 250 ML IV ONE (12:00)
[2020-12-26 12:43] LABS: CALCIUM LEVEL 9.3 MG/DL (8.8-10.2); CREATININE FOR GFR 2.43 MG/DL (0.55-1.30); GLOMERULAR FILTRATION RATE 20.6 (>39); POTASSIUM SERUM 3.8 MEQ/L (3.5-5.1)
--- NOTE | 2020-12-26 14:28 | IPNPDOC ---
Text Note Date of Service The patient was seen on 12/26/20. NOTE SUBJECTIVE: Patient remains altered overnight, responsive to voice and oriented to person. FSBG has greatly improved with short acting insulin and hydration. PHYSICAL EXAMINATION: VITAL SIGNS: see below GENERAL APPEARANCE: Somnolent, wakens to voice, oriented to person only, sitting up in bed HEENT: Atraumatic, normocephalic. Eyes are anicteric. Mucous membranes are dry. Periorbital swelling has resolved. CARDIOVASCULAR: NSR, regular rhythm, 3/6 holosystolic murmur at LUSB LUNGS: CTAB, decreased respiratory effort ABDOMEN: Normoactive sounds, soft, nondistended. EXTREMITIES: No lower extremity edema, bruising and skin breakdown to right hip, right lateral lower extremity and abrasions over this area as well, stable from admission NEUROLOGICAL: sleepy but wakes to verbal stimuli, squeezes hand, faces are symmetric, strength 3/5 globally with no apparent pronator drift. Speech is limited but clear. LABORATORY DATA: reviewed IMAGING: No new MICROBIOLOGY: one blood culture with GPC ASSESSMENT: 75 y/o female with difficulty thriving at home as evidenced by multiple recent readmissions presents after fall with hyperglycemia, hyponatremia, JUAN, and elevated cTNT. Will admit for management of acute issues and discussion about nursing home goals of care with patient and family. PLAN: # Hypernatremia: Likely due to hemoconcentration as FENa demonstrates pre-renal picture. Will provide fluid repletion with 1/2 NS. Serum sodium has slightly improved from corrected values of 164 to now laboratory values of 160 following correction of hyperglycemia. - repeat BMP at 1530 - BMP Q6H - 1/2NS at 250cc/hr - Obtain urine osms # AMS: Multifactorial metabolic encephalopathy in the setting of JUAN, Hypernatremia, and Hyperglycemia (resolved). Patient did have positive peripheral blood culture x1, which may be contaminate, but continues to remain negative for SIRS criteria. Have initiated abx in setting of unclear etiology for AMS and improving serum lactate. Will continue to day night cycle and support as hypernatremia and fluid status improve, and remainder of blood cultures return. - day/night cycling - falls risk - NPO pending improvement in mental status - Address underlying medical problems as per below # CKD III with acute kidney injury: Baseline sCr of 1.02, increased on admission 2/2 poor PO intake (pre-renal) and medication non compliance. Continuing to replete with 1/2NS in setting of hypernatremia and now resolved hyperglycemia. Renal function gradually improves during hospitalization. - Tele - BMP in the AM - Fluid repletion as per above # Positive blood culture: Patient has had 1/2 peripheral blood cultures result positive GPC. Likely contaminate, however in setting of encephalopathy and elevated serum lactate, will initiate abx. If likely skin george, will stop abx. - Vancomycin per pharmacy consult - Follow blood cultures # IDDM: HA1c 11 on 12/25/2020, Patient is on ISS and QAM and QHS long acting insulin at home. Hyperglycemia has since resolved and with patient NPO, will decrease nighttime Levemir and hold AM dose pending PO status. Continue to cover as needed with ISS. - FSBG AC/QHS - ISS - Levemir 10U QHS # HFpEF: Patients cTNT remained stable, fluid status remains hypovolemic. Closely monitoring fluid status in setting of volume repletion. Holding BP meds in setting of NPO. # Chronic anemia: Improved, however patient is likely hemoconcentrated in setting of poor PO intake - daily CBCs #Hx DVTs: - Heparin SQ TID # HLD Continue home medications # Depression Continue home medications # HTN Hold amlodipine in setting of NPO # Asthma Not currently taking medications, continue to monitor - IS at bedside Dispo: Med Surg floor with likely d/c to rehab or [facility] intermediary care facility pending family discussion Code: Full Code (addressed with patient's daughter as patient was unable to corroborate this) Diet: NPO at this time d/t failed swallow eval DVT Prophy: heparin SQ TID Consults: PT/OT VS,Fishbone, I+O VS, Fishbone, I+O Laboratory Tests 12/25/20 19:22 12/25/20 23:40 12/26/20 02:01 12/26/20 04:15 12/26/20 12:07 Vital Signs Date Time Temp Pulse Resp B/P (MAP) Pulse Ox O2 Delivery O2 Flow Rate FiO2 12/26/20 12:00 96.7 75 18 99/49 (66) 98 Room Air I&O- Last 24 Hours up to 6 AM 12/26/20 05:59 Intake Total 2300 ml Output Total 400 ml Balance 1900 ml BIBIANA ONEIL MD MPH Dec 26, 2020 14:28
[2020-12-26 16:25] LABS: CALCIUM LEVEL 8.9 MG/DL (8.8-10.2); CREATININE FOR GFR 2.3 MG/DL (0.55-1.30); GLOMERULAR FILTRATION RATE 21.9 (>39); POTASSIUM SERUM 4.2 MEQ/L (3.5-5.1)
[2020-12-26] MEDS: ASPIRIN 81MG ENTERIC TABLET PO SCH (20:18)
[2020-12-26] MEDS: VITAMIN D 1,000 INTERNATIONAL UNITS TABLET PO SCH (20:18)
[2020-12-26] MEDS: SIMVASTATIN 20 MG TAB PO SCH (20:19)
[2020-12-26] MEDS: LEVEMIR (INSULIN DETEMIR) 1 UNITS/0.01ML SC SCH (20:20)
[2020-12-27] MEDS: D5W/0.45% SODIUM CHLORIDE 1,000 ML IV SCH ×3 (00:09→20:50)
[2020-12-27 04:06] VITALS: BP 160/69
[2020-12-27] MEDS: HumaLOG INSULIN (NovoLOG) PER UNIT SC SCH ×6 (04:21→20:56)
[2020-12-27] MEDS: HEPARIN SOD (PORCINE) 5000UNITS/ML 1ML VIAL/SYRINGE SQ SCH ×3 (05:12→20:49)
[2020-12-27] MEDS: SLF 3 ML SYR IV SCH ×3 (05:13→20:56)
[2020-12-27 07:05] VITALS: BP 147/66
[2020-12-27 07:49] LABS: BASO % 0.3 % (0.0-1.0); EOS # 0.1 10^3/uL (0.0-0.5); HEMATOCRIT 36.8 % (36.0-47.0); HEMOGLOBIN 11.1 g/dl (12.0-15.5); LYMPH # 1.4 10^3/uL (1.5-5.0); MEAN CORPUSCULAR HEMOGLOBIN 29.3 pg (27.0-33.0); MEAN CORPUSCULAR HGB CONC 30.2 g/dl (32.0-36.5); MEAN CORPUSCULAR VOLUME 97.1 fl (80.0-96.0); MONO # 0.6 10^3/uL (0.0-0.8); MONO % 7.6 % (2.0-8.0); NEUTROPHILS # 5.7 10^3/uL (1.5-8.5); NEUTROPHILS % 72.5 % (36.0-66.0); PLATELET COUNT, AUTOMATED 107 10^3/uL (150-450); RED BLOOD COUNT 3.79 10^6/uL (4.00-5.40); WHITE BLOOD COUNT 7.9 10^3/uL (4.0-10.0)
[2020-12-27 08:19] LABS: CALCIUM LEVEL 8.5 MG/DL (8.8-10.2); CREATININE FOR GFR 1.77 MG/DL (0.55-1.30); GLOMERULAR FILTRATION RATE 29.7 (>39); MAGNESIUM LEVEL 2.4 MG/DL (1.8-2.4); POTASSIUM SERUM 3.4 MEQ/L (3.5-5.1); VANCOMYCIN RANDOM 10.3 UG/ML
[2020-12-27] MEDS ORDERED: VANCOMYCIN HCL 750 MG, VIAL MATE ADAPTER 1 EACH in NS 250 ML IV SCH (09:00)
[2020-12-27] MEDS: TORSEMIDE 10 MG TABLET PO SCH (09:00)
[2020-12-27] MEDS: VENLAFAXINE 37.5 MG TAB PO SCH (09:00)
[2020-12-27 11:26] VITALS: BP 132/63
--- NOTE | 2020-12-27 13:55 | IPNPDOC ---
Text Note Date of Service The patient was seen on 12/27/20. NOTE SUBJECTIVE: Patient's mentation has greatly improved and she is now oriented x 3 though she is seeing bugs flying in the air that she knows are not there. They are not bothering her. She has been evaluated by ENROLLED AGENT and is not currently safe to clear any form of feeds. She has no other concerns but does agree that she is not safe at home alone any more. PHYSICAL EXAMINATION: VITAL SIGNS: see below GENERAL APPEARANCE: Awake, alert, oriented x3 with slight prompting, NAD HEENT: Atraumatic, normocephalic. Eyes are anicteric. Mucous membranes are dry. CARDIOVASCULAR: NSR, regular rhythm, 3/6 holosystolic murmur at LUSB LUNGS: CTAB, decreased respiratory effort ABDOMEN: Normoactive sounds, soft, nondistended. EXTREMITIES: No lower extremity edema, meplex bandages over wound sites on right hip NEUROLOGICAL: Speech is gravelly but not dysarthric. AOx3 with some prompting, having visual hallucinations that are not intrusive. LABORATORY DATA: reviewed IMAGING: No new MICROBIOLOGY: one blood culture with GPC ASSESSMENT: 75 y/o female with difficulty thriving at home as evidenced by multiple recent readmissions presents after fall with hyperglycemia, hyponatremia, JUAN, and elevated cTNT. Will admit for management of acute issues and discussion about skilled nursing goals of care with patient and family. PLAN: # Hypernatremia: Likely due to hemoconcentration as FENa demonstrates pre-renal picture. That has continued to improve and with improvement in laboratory values has come improvement in mentation. Will provide fluid repletion with D5W 1/2 NS in setting of NPO status - BMP QAM - D5W 1/2NS at 100cc/hr # AMS: Multifactorial metabolic encephalopathy that is markedly improved in the setting of JUAN (improving), Hypernatremia (improving), and Hyperglycemia (resolved). Patient did have positive peripheral blood culture x1, which may be contaminate, but continues to remain negative for SIRS criteria. Have initiated abx in setting of unclear etiology for AMS and improving serum lactate. Will continue to day night cycle and support as hypernatremia and fluid status improve, and remainder of blood cultures return. - day/night cycling - falls risk - NPO pending additional swallow tests - Address underlying medical problems as per below # Aspiration risk: Patient has failed ENROLLED AGENT bedside swallow eval and is pending cookie study tomorrow. In the mean time has remained NPO with D5W 1/2NS for management of hypernatremia and hyperglycemia. - NPO - FSBG Q6H - D5W 1/2NS - Cookie swallow in the AM # CKD III with acute kidney injury: Baseline sCr of 1.02, increased on admission 2/2 poor PO intake (pre-renal) and medication non compliance. Continuing to replete with D5W 1/2NS in setting of hypernatremia and now resolved hyperglycemia. Renal function gradually improves during hospitalization. - Tele - BMP in the AM - Fluid repletion as per above # Positive blood culture: Patient has had 1/2 peripheral blood cultures result positive GPC. Likely contaminate, however in setting of encephalopathy and elevated serum lactate, will initiate abx. If likely skin george, will stop abx. - Vancomycin per pharmacy consult - Follow blood cultures # IDDM: HA1c 11 on 12/25/2020, Patient is on ISS and QAM and QHS long acting insulin at home. Hyperglycemia has since resolved and with patient NPO, will decrease nighttime Levemir and hold AM dose pending PO status. Continue to cover as needed with ISS. - FSBG Q6H - ISS - Levemir 10U QHS # HFpEF: Patients cTNT remained stable, fluid status remains hypovolemic. Closely monitoring fluid status in setting of volume repletion. Holding BP meds in setting of NPO. # Chronic anemia: Improved, however patient is likely hemoconcentrated in setting of poor PO intake - daily CBCs #Hx DVTs: - Heparin SQ TID # HLD Hold home medications in setting of NPO status # Depression Hold home medications in setting of NPO status # HTN Hold amlodipine in setting of NPO # Asthma Not currently taking medications, continue to monitor - IS at bedside Dispo: Med Surg floor with likely d/c to rehab or [facility] care facility pending family discussion Code: Full Code (addressed with patient's daughter as patient was unable to corroborate this) Diet: NPO at this time d/t failed swallow eval DVT Prophy: heparin SQ TID Consults: PT/OT VS,Fishbone, I+O VS, Fishbone, I+O Laboratory Tests 12/26/20 15:36 12/27/20 07:37 Vital Signs Date Time Temp Pulse Resp B/P (MAP) Pulse Ox O2 Delivery O2 Flow Rate FiO2 12/27/20 11:26 98.8 63 18 132/63 (86) 98 Room Air I&O- Last 24 Hours up to 6 AM 12/27/20 05:59 Intake Total 5500 ml Output Total 100 ml Balance 5400 ml BIBIANA ONEIL MD MPH Dec 27, 2020 13:55
[2020-12-27 15:23] VITALS: BP 157/71
[2020-12-27] MEDS: FUROSEMIDE 20MG/2ML VIAL (J1940) IV SCH (16:23)
[2020-12-27 20:00] VITALS: BP 118/56
[2020-12-27] MEDS: LEVEMIR (INSULIN DETEMIR) 1 UNITS/0.01ML SC SCH (20:49)
[2020-12-28] MEDS: HumaLOG INSULIN (NovoLOG) PER UNIT SC SCH ×7 (00:24→23:53)
[2020-12-28 04:00] VITALS: BP 119/58
[2020-12-28] MEDS: HEPARIN SOD (PORCINE) 5000UNITS/ML 1ML VIAL/SYRINGE SQ SCH ×3 (05:15→21:16)
[2020-12-28] MEDS: SLF 3 ML SYR IV SCH ×3 (05:15→21:16)
[2020-12-28 08:00] VITALS: BP 116/56
[2020-12-28 08:34] LABS: BASO % 0.2 % (0.0-1.0); EOS # 0.1 10^3/uL (0.0-0.5); EOS % 0.9 % (0.0-3.0); HEMATOCRIT 36.9 % (36.0-47.0); HEMOGLOBIN 11.2 g/dl (12.0-15.5); LYMPH # 1.5 10^3/uL (1.5-5.0); LYMPH % 23.1 % (24.0-44.0); MEAN CORPUSCULAR HEMOGLOBIN 29.9 pg (27.0-33.0); MEAN CORPUSCULAR HGB CONC 30.4 g/dl (32.0-36.5); MEAN CORPUSCULAR VOLUME 98.4 fl (80.0-96.0); MONO # 0.4 10^3/uL (0.0-0.8); MONO % 6.5 % (2.0-8.0); NEUTROPHILS # 4.3 10^3/uL (1.5-8.5); NEUTROPHILS % 68.2 % (36.0-66.0); PLATELET COUNT, AUTOMATED 102 10^3/uL (150-450); RED BLOOD COUNT 3.75 10^6/uL (4.00-5.40); WHITE BLOOD COUNT 6.4 10^3/uL (4.0-10.0)
[2020-12-28 09:03] LABS: CALCIUM LEVEL 8.5 MG/DL (8.8-10.2); CREATININE FOR GFR 1.52 MG/DL (0.55-1.30); GLOMERULAR FILTRATION RATE 35.4 (>39); POTASSIUM SERUM 3.3 MEQ/L (3.5-5.1)
[2020-12-28] MEDS: D5W/0.45% SODIUM CHLORIDE 1,000 ML IV SCH (09:23)
[2020-12-28] MEDS: FUROSEMIDE 20MG/2ML VIAL (J1940) IV SCH (09:24)
[2020-12-28 12:00] VITALS: BP 148/56
--- NOTE | 2020-12-28 13:45 | IPNPDOC ---
Text Note Date of Service The patient was seen on 12/28/20. NOTE SUBJECTIVE: Patient's mentation remains good and at baseline. Her daughter was in the room this morning and both were in good spirits. They both agree that patient should not discharge back to staying at home by herself. They have also signed POA. Patient is looking forward to the [employer] swallow and is hopeful there will be good news as "she's not ready to go just yet." PHYSICAL EXAMINATION: VITAL SIGNS: see below GENERAL APPEARANCE: Awake, alert, oriented [id number] HEENT: Atraumatic, normocephalic. Eyes are anicteric. Mucous membranes are dry. CARDIOVASCULAR: NSR, regular rhythm, 3/6 holosystolic murmur at LUSB LUNGS: CTAB, decreased respiratory effort ABDOMEN: Normoactive sounds, soft, nondistended. EXTREMITIES: No lower extremity edema, meplex bandages over wound sites on right hip NEUROLOGICAL: Speech is gravelly but not dysarthric. AOx3 LABORATORY DATA: reviewed IMAGING: No new MICROBIOLOGY: UCx with pseudomonas ASSESSMENT: 75 y/o female with difficulty thriving at home as evidenced by multiple recent readmissions presents after fall with hyperglycemia, hyponatremia, JUAN, and elevated cTNT. Will admit for management of acute issues and discussion about custodial goals of care with patient and family. PLAN: # Hypernatremia: Likely due to hemoconcentration as FENa demonstrates pre-renal picture. That has continued to improve and with improvement in laboratory values has come improvement in mentation. Will provide fluid repletion with D5W 1/2 NS in s etting of NPO status. Continue to monitor and reduce gradually. - BMP QAM - D5W 1/2NS at 100cc/hr # AMS: Multifactorial metabolic encephalopathy that is markedly improved in the setting of JUAN (improving), Hypernatremia (improving), and Hyperglycemia (resolved). Patient did have positive peripheral blood culture x1, which has now been shown to be a contaminant and she continues to remain negative for SIRS criteria. UCx has resulted in pseudomonas sensitive to Levaquin. Will transition to IV Lev aquin in setting of NPO status. Will continue to day night cycle and support as hypernatremia and fluid status improve. Meds: - Levaquin 500mg IV x1 followed by 250mg IV daily x4 days - day/night cycling - falls risk - NPO pending additional swallow tests - Address underlying medical problems as per below # Pseudomonas UTI: Patient continues to be asymptomatic and has improved mentation. Will treat for UTI with Levaquin based on sensitivities. Meds: - Levaquin 500mg IV x1 followed by 250mg IV daily x4 days # Aspiration risk: Patient has failed THERMAL CUTTING TRACER MACHINE OPERATOR bedside swallow eval and is pending cookie study tomorrow. In the mean time has remained NPO with D5W 1/2NS for management of hypernatremia and hyperglycemia. - NPO - FSBG Q6H - D5W 1/2NS - Cookie swallow in the AM # CKD III with acute kidney injury: Baseline sCr of 1.02, increased on admission 2/2 poor PO intake (pre-renal) and medication non compliance. Continuing to replete with D5W 1/2NS in setting of hypernatremia and now resolved hyperglycemia. Renal function gradually improves during hospitalization. - Tele - BMP in the AM - Fluid repletion as per above # Positive blood culture: Contaminate. Have stopped vanco. # IDDM: HA1c 11 on 12/25/2020, Patient is on ISS and QAM and QHS long acting insulin at home. Hyperglycemia has since resolved and with patient NPO, will decrease nighttime Levemir and hold AM dose pending PO status. Continue to cover as needed with ISS. - FSBG Q6H - ISS - Levemir 10U QHS # Multiple comorbidities: Have had several conversations now with patient and her daughter who is now her POA. Patient continues to express desire to be full code. Will make further determinations about nutrition source pending swallow eval. # HFpEF: Patients cTNT remained stable, fluid status remains hypovolemic. Closely monitoring fluid status in setting of volume repletion. Holding BP meds in setting of NPO. # Chronic anemia: Improved, however patient is likely hemoconcentrated in setting of poor PO intake - daily CBCs #Hx DVTs: - Heparin SQ TID # HLD Hold home medications in setting of NPO status # Depression Hold home medications in setting of NPO status # HTN Hold amlodipine in setting of NPO # Asthma Not currently taking medications, continue to monitor - IS at bedside Dispo: Med Surg floor with likely d/c to rehab or long term care pharmacist care facility pending family discussion Code: Full Code Diet: NPO at this time d/t failed swallow eval DVT Prophy: heparin SQ TID Consults: PT/OT, THERMAL CUTTING TRACER MACHINE OPERATOR, SW/NCM VS,Rylie, I+O VS, Fishbone, I+O Laboratory Tests 12/28/20 08:14 Vital Signs Date Time Temp Pulse Resp B/P (MAP) Pulse Ox O2 Delivery O2 Flow Rate FiO2 12/28/20 08:00 98.0 63 18 116/56 (76) 99 Room Air I&O- Last 24 Hours up to 6 AM 12/28/20 06:00 Intake Total 0 ml Output Total 900 ml Balance -900 ml BIBIANA ONEIL MD MPH Dec 28, 2020 13:45
[2020-12-28] MEDS ORDERED: VARIBAR PUDDING 40% w/v 230ML TUBE As Ordered ONE (14:26)
[2020-12-28] MEDS ORDERED: E-Z-PAQUE 96% w/w SUSP 176GM BTL As Ordered ONE (14:26)
[2020-12-28] MEDS ORDERED: BARIUM SULFATE 700 MG TABLET (E-Z-DISK) As Ordered ONE (14:26)
[2020-12-28] MEDS ORDERED: VARIBAR NECTAR 40% w/v 240ML SUSP BTL As Ordered ONE (14:26)
[2020-12-28 16:00] VITALS: BP 116/57
--- NOTE | 2020-12-28 17:16 | REP ---
INDICATION: aspiration. COMPARISON: None. TECHNIQUE: The procedure was performed by CATALINA Cifuentes, under the direct supervision of Dr. Sanchez. The procedure was performed with Arlet Rogers and Gisela Castorena from speech pathology present. 5 ml aliquots of thin, nectar thick, honey thick and applesauce consistency barium was administered. FINDINGS: Both aspiration and penetration were visualized during the exam. The detailed report of this examination will be provided by speech pathology. IMPRESSION: Aspiration and penetration were visualized, a detailed report will be provided by speech pathology. 1.5 minutes of fluoroscopy time was utilized for this procedure. Some fluoroscopic images are performed with last image hold technology. These images require no additional radiation <Electronically signed by Nunu Rothman > 12/28/20 1601 <Electronically signed by Channing Sanchez > 12/28/20 1712
[2020-12-28 20:00] VITALS: BP 117/57
[2020-12-28] MEDS: LEVEMIR (INSULIN DETEMIR) 1 UNITS/0.01ML SC SCH (21:16)
[2020-12-29] MEDS: D5W/0.45% SODIUM CHLORIDE 1,000 ML IV SCH ×2 (01:08→10:12)
[2020-12-29] MEDS: HumaLOG INSULIN (NovoLOG) PER UNIT SC SCH ×6 (04:15→23:56)
[2020-12-29] MEDS: HEPARIN SOD (PORCINE) 5000UNITS/ML 1ML VIAL/SYRINGE SQ SCH (06:00)
[2020-12-29] MEDS: SLF 3 ML SYR IV SCH ×3 (06:07→20:24)
[2020-12-29 08:00] VITALS: BP 160/72
--- NOTE | 2020-12-29 08:29 | REP ---
INDICATION: ngt placement. COMPARISON: 12/25/2020 TECHNIQUE: Portable FINDINGS: The technique utilized in obtaining the radiograph has magnified the cardiac silhouette and accentuated the interstitial markings. The cardiomediastinal silhouette is unchanged. The heart is not enlarged. The right-sided thoracotomy tube is unchanged. The opacity seen along the right lateral chest wall has resolved. The lung colmenares are clear. The pleural angles are sharp. There is no change in the osseous structures. Since the last examination a nasogastric tube has been placed the tip of which is beyond the confines of the radiograph beneath the diaphragmatic surface of the left lung presumably within the stomach. IMPRESSION: No acute cardiopulmonary disease. Improvement and other findings as described above. <Electronically signed by Otto Lopez > 12/29/20 [id number]
[2020-12-29] MEDS: ASPIRIN 81 MG CHEW TABLET NG SCH (09:00)
[2020-12-29] MEDS ORDERED: KCL 10MEQ/100ML SWI (KRUN) 10 MEQ in IV 1 EA IV SCH ×4 (09:00)
[2020-12-29] MEDS: FUROSEMIDE 20MG/2ML VIAL (J1940) IV SCH (09:19)
[2020-12-29] MEDS: LevoFLOXacin IV 250 MG in IV 1 EA IV SCH (09:19)
[2020-12-29 09:37] LABS: HEMATOCRIT 36.2 % (36.0-47.0); HEMOGLOBIN 11.1 g/dl (12.0-15.5); MEAN CORPUSCULAR HEMOGLOBIN 30.2 pg (27.0-33.0); MEAN CORPUSCULAR HGB CONC 30.7 g/dl (32.0-36.5); MEAN CORPUSCULAR VOLUME 98.6 fl (80.0-96.0); RED BLOOD COUNT 3.67 10^6/uL (4.00-5.40); WHITE BLOOD COUNT 5.2 10^3/uL (4.0-10.0)
[2020-12-29 09:52] LABS: PLATELET COUNT, AUTOMATED 90 10^3/uL (150-450)
[2020-12-29 10:17] LABS: CALCIUM LEVEL 8.2 MG/DL (8.8-10.2); CREATININE FOR GFR 1.42 MG/DL (0.55-1.30); GLOMERULAR FILTRATION RATE 38.3 (>39); MAGNESIUM LEVEL 2.3 MG/DL (1.8-2.4); POTASSIUM SERUM 3.8 MEQ/L (3.5-5.1)
[2020-12-29 12:00] VITALS: BP 123/58
--- NOTE | 2020-12-29 13:29 | IPNPDOC ---
Text Note Date of Service The patient was seen on 12/29/20. NOTE SUBJECTIVE: -No acute events PHYSICAL EXAMINATION: VITAL SIGNS: see below GENERAL APPEARANCE: Awake, alert, NAD HEENT: Atraumatic, normocephalic. Eyes are anicteric. Mucous membranes are dry. CARDIOVASCULAR: NSR, regular rhythm, 3/6 holosystolic murmur at LUSB LUNGS: CTAB, decreased respiratory effort ABDOMEN: Normoactive sounds, soft, nondistended. EXTREMITIES: No lower extremity edema, meplex bandages over wound sites on right hip NEUROLOGICAL: Speech is gravelly but not dysarthric. AOx3 LABORATORY DATA: reviewed IMAGING: No new MICROBIOLOGY: UCx with pseudomonas ASSESSMENT: 75 y/o W with a history of invasive ductal carcinoma of the right breast, metastatic to lungs and pleura bilaterally R> L, hormone receptor positive first diagnosed in 2002 s/p lumpectomy, chemo and radiotherapy on hormone therapy, recurrent right sided malignant pleural effusion with Right Pleurx catheter, chronic anemia, CKD3, DM, HTN, diastolic CHF with multiple recent readmissions who was brought in after a fall and found to be hyperglycemic, hyponatremic, with an JUAN on CKD, now with ongoing discussions about safe discharge planning. PLAN: # Hypernatremia: most likely 2/2 dehydration as FENa demonstrates pre-renal azotemia. - continue D5W 1/2 NS. - BMP QAM - f/u swallow eval recs, thus far failed and has NGT with jevity # Metabolic encephalopathy: Multifactorial metabolic encephalopathy that is markedly improved in the setting of JUAN (improving), Hypernatremia (improving), and Hyperglycemia (resolved). Patient did have positive peripheral blood culture x1, which has now been shown to be a contaminant and she continues to remain negative for SIRS criteria. UCx has resulted in pseudomonas sensitive to Levaquin. -continue IV Levaquin - fall risk - NPO status after failed swallow eval, has NGT with jevity, to re-eval in a few days. # Pseudomonas UTI: -Patient continues to be asymptomatic and has improved mentation. -Continue Levaquin: 500mg IV x1 followed by 250mg IV daily x4 days # Aspiration risk: Patient has failed CLIENT SERVICE COORDINATOR bedside swallow eval, s/p NGT on jevity. -D5W 1/2NS for management of hypernatremia. -FSBG Q6H -to repeat swallow eval early next week # CKD III with acute kidney injury: Baseline sCr of 1.02, increased on admission 2/2 poor PO intake (pre-renal) and medication non compliance. -Continuing to replete with D5W 1/2NS in setting of hypernatremia. -Renal function gradually improving - BMP qAM # Positive blood culture: Contaminate. Have stopped vanco. # IDDM: HA1c 11 on 12/25/2020, Patient is on ISS and QAM and QHS long acting insulin at home. Hyperglycemia has resolved - FSBG Q6H - ISS - Levemir 10U QHS -On jevity feeds via NGT # Multiple comorbidities: -Prior attending had several conversations now with patient and her daughter who is now her POA. Patient continues to express desire to be full code. Will make further determinations about nutrition source pending repeat swallow eval, for now with NGT and jevity. -POA and patient expressed understanding that home discharge would be unsafe at this time. -PFS consulted for safe discharge planning -PT/OT # HFpEF: -Closely monitoring fluid status in setting of volume repletion. -Holding BP meds -Was restarted on lasix 20 IV daily # Chronic anemia: - daily CBCs #Hx DVTs: - Heparin SQ TID # HLD -switch meds to per NGT tube # Depression -switch meds to per NGT tube # HTN -holding meds # Asthma Not currently taking medications, continue to monitor - IS at bedside Dispo: Med Surg floor with likely d/c to rehab or excelsior machine operator care facility pending PFS and family planning Code: Full Code Diet: NPO at this time d/t failed swallow eval, NGT on jevity DVT Prophy: heparin SQ TID Consults: PT/OT, CLIENT SERVICE COORDINATOR, SW VS,Fishbone, I+O VS, Fishbone, I+O Laboratory Tests 12/28/20 08:14 Vital Signs Date Time Temp Pulse Resp B/P (MAP) Pulse Ox O2 Delivery O2 Flow Rate FiO2 12/28/20 20:00 98.0 65 18 117/57 (77) 98 Room Air I&O- Last 24 Hours up to 6 AM 12/29/20 06:00 Intake Total 900 ml Output Total 475 ml Balance 425 ml JOSHUA KNIGHT V. MD Dec 29, 2020 08:34
[2020-12-29 16:00] VITALS: BP 132/64
[2020-12-29] MEDS: RIVAROXABAN 20 MG TAB (XARELTO) TF SCH (17:02)
[2020-12-29 20:00] VITALS: BP 130/57
[2020-12-29] MEDS: SIMVASTATIN 20 MG TAB NG SCH (20:23)
[2020-12-29] MEDS: LEVEMIR (INSULIN DETEMIR) 1 UNITS/0.01ML SC SCH (20:23)
[2020-12-30] VITALS: BP 155/63
[2020-12-30 04:00] VITALS: BP 123/55
[2020-12-30] MEDS: HumaLOG INSULIN (NovoLOG) PER UNIT SC SCH ×5 (04:13→20:32)
[2020-12-30] MEDS: SLF 3 ML SYR IV SCH ×3 (05:23→20:32)
[2020-12-30] MEDS: D5W/0.45% SODIUM CHLORIDE 1,000 ML IV SCH ×3 (05:23→20:20)
[2020-12-30 05:54] LABS: HEMATOCRIT 34.8 % (36.0-47.0); HEMOGLOBIN 10.5 g/dl (12.0-15.5); MEAN CORPUSCULAR HEMOGLOBIN 30.3 pg (27.0-33.0); MEAN CORPUSCULAR HGB CONC 30.2 g/dl (32.0-36.5); MEAN CORPUSCULAR VOLUME 100.3 fl (80.0-96.0); RED BLOOD COUNT 3.47 10^6/uL (4.00-5.40); WHITE BLOOD COUNT 7.2 10^3/uL (4.0-10.0)
[2020-12-30 05:59] LABS: PLATELET COUNT, AUTOMATED 93 10^3/uL (150-450)
[2020-12-30 06:05] LABS: CALCIUM LEVEL 8.2 MG/DL (8.8-10.2); CREATININE FOR GFR 1.35 MG/DL (0.55-1.30); GLOMERULAR FILTRATION RATE 40.6 (>39); POTASSIUM SERUM 3.6 MEQ/L (3.5-5.1)
[2020-12-30 08:00] VITALS: BP 141/59
[2020-12-30] MEDS: ASPIRIN 81 MG CHEW TABLET NG SCH (09:11)
[2020-12-30] MEDS: LevoFLOXacin IV 250 MG in IV 1 EA IV SCH (09:11)
[2020-12-30] MEDS: FUROSEMIDE 20MG/2ML VIAL (J1940) IV SCH (09:12)
[2020-12-30 12:00] VITALS: BP_SYST 118; BP_SYST 139; BP_DIAS 56; BP_DIAS 60
--- NOTE | 2020-12-30 12:05 | IPNPDOC ---
Text Note Date of Service The patient was seen on 12/30/20. NOTE SUBJECTIVE: -No acute events PHYSICAL EXAMINATION: VITAL SIGNS: see below GENERAL APPEARANCE: Awake, alert, NAD HEENT: Atraumatic, normocephalic. Eyes are anicteric. Mucous membranes are dry. CARDIOVASCULAR: NSR, regular rhythm, 3/6 holosystolic murmur at LUSB LUNGS: CTAB, poor respiratory effort ABDOMEN: Normoactive sounds, soft, nondistended. EXTREMITIES: No lower extremity edema, bandage over wound sites on right hip NEUROLOGICAL: Speech is gravelly but not dysarthric. AOx3 LABORATORY DATA: reviewed Na 151 Cr 1.35 K 3.6 WBC 7.2 hgb 10.5 IMAGING: No new MICROBIOLOGY: UCx with pseudomonas ASSESSMENT: 75 y/o W with a history of invasive ductal carcinoma of the right breast, metastatic to lungs and pleura bilaterally R> L, hormone receptor positive first diagnosed in 2002 s/p lumpectomy, chemo and radiotherapy on hormone therapy, recurrent right sided malignant pleural effusion with Right Pleurx catheter, chronic anemia, CKD3, DM, HTN, diastolic CHF with multiple recent readmissions who was brought in after a fall and found to be hyperglycemic, hyponatremic, with an JUAN on CKD, now with ongoing discussions about safe discharge planning. PLAN: # Hypernatremia: most likely 2/2 dehydration as FENa demonstrates pre-renal azotemia. - continue D5W 1/2 NS. - BMP QAM - f/u swallow eval recs, thus far failed and has NGT with jevity # Metabolic encephalopathy: Multifactorial metabolic encephalopathy that is markedly improved in the setting of JUAN (improving), Hypernatremia (improving), and Hyperglycemia (resolved). Patient did have positive peripheral blood culture x1, which has now been shown to be a contaminant and she continues to remain negative for SIRS criteria. UCx has resulted in pseudomonas sensitive to Levaquin. -continue IV Levaquin - fall risk - NPO status after failed swallow eval, has NGT with jevity, to re-eval in a few days. # Pseudomonas UTI: -Patient continues to be asymptomatic and has improved mentation. -Continue Levaquin: 500mg IV x1 followed by 250mg IV daily x4 days # Aspiration risk: Patient has failed METAL STAMPING MACHINE OPERATOR bedside swallow eval, s/p NGT on jevity. -D5W 1/2NS for management of hypernatremia. -FSBG Q6H -to repeat swallow eval early next week # CKD III with acute kidney injury: Baseline sCr of 1.02, increased on admission 2/2 poor PO intake (pre-renal) and medication non compliance. -Continuing to replete with D5W 1/2NS in setting of hypernatremia. -Renal function gradually improving - BMP qAM # Positive blood culture: Contaminate. Have stopped vanco. # IDDM: HA1c 11 on 12/25/2020, Patient is on ISS and QAM and QHS long acting insulin at home. Hyperglycemia has resolved - FSBG Q6H - ISS - Levemir 10U QHS -On jevity feeds via NGT # Multiple comorbidities: -Prior attending had several conversations now with patient and her daughter who is now her POA. Patient continues to express desire to be full code. Will make further determinations about nutrition source pending repeat swallow eval, for now with NGT and jevity. -POA and patient expressed understanding that home discharge would be unsafe at this time. -PFS consulted for safe discharge planning -PT/OT # HFpEF: -Closely monitoring fluid status in setting of volume repletion. -Holding BP meds -Was restarted on lasix 20 IV daily # Chronic anemia: - daily CBCs #Hx DVTs: - Heparin SQ TID # HLD -continue meds # Depression -conitnue meds # HTN -holding meds # Asthma Not currently taking medications, continue to monitor - IS at bedside Dispo: Med Surg floor with likely d/c to rehab or event promoter care facility pending PFS and family planning Code: Full Code Diet: NPO at this time d/t failed swallow eval, NGT on jevity DVT Prophy: heparin SQ TID Consults: PT/OT, METAL STAMPING MACHINE OPERATOR, SW VS,Rylie, I+O VS, Rylie, I+O Laboratory Tests 12/30/20 05:20 Vital Signs Date Time Temp Pulse Resp B/P (MAP) Pulse Ox O2 Delivery O2 Flow Rate FiO2 12/30/20 08:00 98.7 66 17 141/59 (86) 98 Room Air I&O- Last 24 Hours up to 6 AM 12/30/20 06:00 Intake Total 1020 ml Output Total 400 ml Balance 620 ml [id number],JOSHUA V. MD Dec 30, 2020 09:34
[2020-12-30 16:00] VITALS: BP 105/58
[2020-12-30] MEDS: RIVAROXABAN 20 MG TAB (XARELTO) TF SCH (17:11)
[2020-12-30 20:00] VITALS: BP 127/57
[2020-12-30] MEDS: LEVEMIR (INSULIN DETEMIR) 1 UNITS/0.01ML SC SCH (20:31)
[2020-12-30] MEDS: SIMVASTATIN 20 MG TAB NG SCH (20:32)
[2020-12-31] VITALS (7 sets, daily range): BP systolic 101–144; BP diastolic 54–78
[2020-12-31] MEDS: D5W/0.45% SODIUM CHLORIDE 1,000 ML IV SCH ×3 (01:03→22:50)
[2020-12-31] MEDS: HumaLOG INSULIN (NovoLOG) PER UNIT SC SCH ×6 (01:03→20:39)
[2020-12-31] MEDS: SLF 3 ML SYR IV SCH ×3 (04:31→21:27)
[2020-12-31 05:20] LABS: HEMATOCRIT 34.2 % (36.0-47.0); HEMOGLOBIN 10.2 g/dl (12.0-15.5); MEAN CORPUSCULAR HEMOGLOBIN 29.6 pg (27.0-33.0); MEAN CORPUSCULAR HGB CONC 29.8 g/dl (32.0-36.5); MEAN CORPUSCULAR VOLUME 99.1 fl (80.0-96.0); PLATELET COUNT, AUTOMATED 104 10^3/uL (150-450); RED BLOOD COUNT 3.45 10^6/uL (4.00-5.40)
[2020-12-31 05:34] LABS: CREATININE FOR GFR 1.28 MG/DL (0.55-1.30); GLOMERULAR FILTRATION RATE 43.2 (>39); POTASSIUM SERUM 3.4 MEQ/L (3.5-5.1)
[2020-12-31] MEDS: ASPIRIN 81 MG CHEW TABLET NG SCH (08:53)
[2020-12-31] MEDS: FUROSEMIDE 20MG/2ML VIAL (J1940) IV SCH (08:54)
[2020-12-31] MEDS: LevoFLOXacin IV 250 MG in IV 1 EA IV SCH (08:54)
[2020-12-31] MEDS ORDERED: POTASSIUM CHLORIDE 10% LIQ 20 MEQ/15 ML UDC NG ONE (10:00)
--- NOTE | 2020-12-31 11:21 | IPNPDOC ---
Text Note Date of Service The patient was seen on 12/31/20. NOTE SUBJECTIVE: -No acute events PHYSICAL EXAMINATION: VITAL SIGNS: see below GENERAL APPEARANCE: Awake, alert, NAD HEENT: Atraumatic, normocephalic. Eyes are anicteric. Mucous membranes are dry. CARDIOVASCULAR: NSR, regular rhythm, 3/6 holosystolic murmur at LUSB LUNGS: CTAB, poor respiratory effort ABDOMEN: Normoactive sounds, soft, nondistended. EXTREMITIES: No lower extremity edema, bandage over wound sites on right hip NEUROLOGICAL: Speech is gravelly but not dysarthric. AOx3 LABORATORY DATA: reviewed Na 152 Cr 1.28 K 3.4 IMAGING: No new MICROBIOLOGY: UCx with pseudomonas ASSESSMENT: 75 y/o W with a history of invasive ductal carcinoma of the right breast, metas tatic to lungs and pleura bilaterally R> L, hormone receptor positive first diagnosed in 2002 s/p lumpectomy, chemo and radiotherapy on hormone therapy, recurrent right sided malignant pleural effusion with Right Pleurx catheter, chronic anemia, CKD3, DM, HTN, diastolic CHF with multiple recent readmissions who was brought in after a fall and found to be hyperglycemic, hyponatremic, with an JUAN on CKD, now with ongoing discussions about safe discharge planning. PLAN: # Hypernatremia: most likely 2/2 dehydration as FENa demonstrates pre-renal azotemia. - continue D5W 1/2 NS. - BMP QAM - f/u swallow eval recs, thus far failed and has NGT with jevity -add 250cc free water Q6H to tube feeding plan # Metabolic encephalopathy: Multifactorial metabolic encephalopathy that is markedly improved in the setting of JUAN (improving), Hypernatremia (improving), and Hyperglycemia (resolved). Patient did have positive peripheral blood culture x1, which has now been shown to be a contaminant and she continues to remain negative for SIRS criteria. UCx has resulted in pseudomonas sensitive to Levaquin. -continue IV Levaquin - fall risk - NPO status after failed swallow eval, has NGT with jevity, to re-eval in a few days. # Pseudomonas UTI: -Patient continues to be asymptomatic and has improved mentation. -Continue Levaquin: 500mg IV x1 followed by 250mg IV daily x4 days # Aspiration risk: Patient has failed GRINDER MILL OPERATOR bedside swallow eval, s/p NGT on jevity. -D5W 1/2NS for management of hypernatremia. -FSBG Q6H -to repeat swallow eval early next week # CKD III with acute kidney injury: Baseline sCr of 1.02, increased on admission 2/2 poor PO intake (pre-renal) and medication non compliance. -Continuing to replete with D5W 1/2NS in setting of hypernatremia. -Renal function gradually improving - BMP qAM # Positive blood culture: Contaminate. Have stopped vanco. # IDDM: HA1c 11 on 12/25/2020, Patient is on ISS and QAM and QHS long acting insulin at home. Hyperglycemia has resolved - FSBG Q6H - ISS - Levemir 10U QHS -On jevity feeds via NGT # Multiple comorbidities: -Prior attending had several conversations now with patient and her daughter who is now her POA. Patient continues to express desire to be full code. Will make further determinations about nutrition source pending repeat swallow eval, for now with NGT and jevity. -POA and patient expressed understanding that home discharge would be unsafe at this time. -PFS consulted for safe discharge planning -PT/OT # HFpEF: -Closely monitoring fluid status in setting of volume repletion. -Holding BP meds -Was restarted on lasix 20 IV daily # Chronic anemia: - daily CBCs #Hx DVTs: - Heparin SQ TID # HLD -continue meds # Depression -conitnue meds # HTN -holding meds # Asthma Not currently taking medications, continue to monitor - IS at bedside Dispo: Med Surg floor with likely d/c to rehab or [facility] care facility pending PFS and family planning Code: Full Code Diet: NPO at this time d/t failed swallow eval, NGT on jevity DVT Prophy: heparin SQ TID Consults: PT/OT, GRINDER MILL OPERATOR, SW VS,Rylie, I+O VS, Rylie, I+O Laboratory Tests 12/31/20 04:40 Vital Signs Date Time Temp Pulse Resp B/P (MAP) Pulse Ox O2 Delivery O2 Flow Rate FiO2 12/31/20 08:00 98.5 77 15 139/58 (85) 100 Room Air I&O- Last 24 Hours up to 6 AM 12/31/20 06:00 Intake Total 585 ml Output Total 1650 ml Balance -1065 ml JOSHUA KNIGHT MD Dec 31, 2020 08:54
[2020-12-31] MEDS: RIVAROXABAN 20 MG TAB (XARELTO) TF SCH (18:14)
[2020-12-31] MEDS: SIMVASTATIN 20 MG TAB NG SCH (20:37)
[2020-12-31] MEDS: LEVEMIR (INSULIN DETEMIR) 1 UNITS/0.01ML SC SCH (20:39)
[2021-01-01] MEDS: HumaLOG INSULIN (NovoLOG) PER UNIT SC SCH ×6 (00:40→20:09)
[2021-01-01] MEDS: SLF 3 ML SYR IV SCH ×3 (05:51→21:35)
[2021-01-01] MEDS: LevoFLOXacin 250 MG TABLET NG SCH (05:51)
[2021-01-01 06:00] VITALS: BP 123/58
[2021-01-01 07:01] LABS: HEMATOCRIT 29.7 % (36.0-47.0); HEMOGLOBIN 9.1 g/dl (12.0-15.5); MEAN CORPUSCULAR HEMOGLOBIN 30.5 pg (27.0-33.0); MEAN CORPUSCULAR HGB CONC 30.6 g/dl (32.0-36.5); MEAN CORPUSCULAR VOLUME 99.7 fl (80.0-96.0); PLATELET COUNT, AUTOMATED 121 10^3/uL (150-450); RED BLOOD COUNT 2.98 10^6/uL (4.00-5.40); WHITE BLOOD COUNT 9.2 10^3/uL (4.0-10.0)
[2021-01-01 07:35] LABS: CALCIUM LEVEL 7.5 MG/DL (8.8-10.2); CREATININE FOR GFR 1.23 MG/DL (0.55-1.30); GLOMERULAR FILTRATION RATE 45.2 (>39); POTASSIUM SERUM 3.3 MEQ/L (3.5-5.1)
[2021-01-01] MEDS ORDERED: HumaLOG INSULIN (NovoLOG) PER UNIT SC ONE (08:05)
[2021-01-01] MEDS: ASPIRIN 81 MG CHEW TABLET NG SCH (08:26)
[2021-01-01] MEDS: FUROSEMIDE 20MG/2ML VIAL (J1940) IV SCH (08:28)
[2021-01-01 11:41] LABS: MAGNESIUM LEVEL 1.7 MG/DL (1.8-2.4)
[2021-01-01] MEDS ORDERED: POTASSIUM CHLORIDE 10% LIQ 20 MEQ/15 ML UDC NG ONE (12:00)
[2021-01-01] MEDS ORDERED: MAG SULF 1GM/100ML (MAG RUN) 1 GM in IV 1 EA IV ONE (13:30)
[2021-01-01 14:00] VITALS: BP 111/47
[2021-01-01] MEDS: ACETAMINOPHEN TAB 650MG DOSE (2X325MG) PO PRN (17:36)
[2021-01-01] MEDS: RIVAROXABAN 20 MG TAB (XARELTO) TF SCH (17:36)
--- NOTE | 2021-01-01 19:08 | IPNPDOC ---
Date Seen The patient was seen on 01/01/21. Progress Note SUBJECTIVE: Bel was seen and examined this morning by the hospitalist service while sitting on the side of her bed. She was just about to start her physical therapy session. On speaking with nursing, she was able to handle ice chips recently with no significant issue. Her biggest issue continues to be her elevated blood sugars. No acute events overnight were reported by nursing patient herself feels as though her energy is somewhat better today. She did have a small reported bowel movement earlier this morning. She denies any flank pain, suprapubic pain, or dysuria She denies any current or overnight fever, chills, night sweats, chest pain, abdominal pain, or vomiting. OBJECTIVE PHYSICAL EXAMINATION: VITAL SIGNS: Please see below. GENERAL: Pleasant elderly female sitting on the side of her bed. NG tube in place. No acute distress. HEENT: Normocephalic, atraumatic. Noninjected, anicteric sclera. There is an NG tube present in the left nare. Mucous membranes appear mildly dry with no pharyngeal erythema or exudate appreciated CARDIOVASCULAR: Regular rate, regular rhythm. There continues to be a holosystolic murmur appreciated best at the left upper parasternal border, second intercostal space RESPIRATORY: Continues to be some diminished breath sounds bilaterally with decreased respiratory effort. No significant adventitious breath sounds are appreciated. Breathing room air. Speaking full sentences. No accessory muscle use. ABDOMINAL: Soft, nontender and nondistended. Normoactive bowel sounds throughout. No rigidity is appreciated. EXTREMITIES: Bandages remain in place over the right hip. Bilateral lower extremities are free of pitting of edema. 2+ radial pulses bilaterally. NEUROLOGICAL: Speech continues to be a little bit softer but is nondysarthric. Responds appropriate all questions and commands. PSYCHOLOGICAL: Mood and affect appear appropriate LABORATORY DATA, IMAGING STUDIES, MICROBIOLOGY: ASSESSMENT AND PLAN: This is a 75yo female with history of hormone receptor positive right breast invasive ductal carcinoma first diagnosed in 2002 with metastases to lungs and pleura (R>L) s/p chemo, radiation, lumpectomy currently on hormone therapy with recurrent right-sided malignant pleural effusions and right Pleurx catheter, chronic kidney disease stage III, hypertension, diabetes mellitus, chronic anemia, diastolic CHF with multiple recent hospital admissions who was brought in after fall and subsequently found to have an JUAN on CKD with hyperglycemia and hyponatremia. There continues to be continued work on possible safe discharge plan. #Hyperglycemia -Serum glucose was 534 this morning -This increase is likely 2/2 recent administration of D5W1/2NS in setting of nyperNa -this is significantly elevated even from recent baseline during this admission -14 units of short acting was given as well as an additional 4 units of short acting -Long-acting dose was doubled to 20 units every night from 10 -We will continue to follow up on fingersticks; increase short acting dose this morning, plus the discontinuation of the D5 half-normal saline should help with the hyperglycemia -Of note, patient's diabetes appears to be poorly controlled at home as her A1c was 11 on 12/25/2020. -Continue with sliding scale insulin -Continue with Jevity feeds via NG tube -Fingersticks remain every 6 hours #Hypernatremia -This is most likely result of prerenal etiology secondary to dehydration as calculated fractional excretion of sodium was less than 1% -Serum sodium this morning improved to 144. -The patient had been on dextrose 5 water half-normal saline and as result of th e improved sodium, this has been stopped today. -Continue to monitor on follow-up metabolic panel -Still remains on tube feeds via NG tube due to failed swallow study #Hypokalemia -Serum potassium 3.3 this morning -This has been a recurrent issue over the past few lab studies -40 mEq potassium chloride again given via NG formulation -Patient also was hypomagnesemic and had mag run ordered as well #Hypomagnesemia -Serum magnesium was 1.7 -1 magnesium sulfate run #Asymptomatic pseudomonas urinary tract infection -Today is day 4 of 5 total days of levofloxacin. Patient received an initial 500 mg IV dose and is now receiving 250 mg NG tube dosing -With improvement in hypernatremia hyperglycemia and JUAN on CKD, there is been a steady improvement in her mentation #Metabolic encephalopathy likely multifactorial -This was likely secondary to the presenting JUAN, hyponatremia, and hyperglycemia -Please see section above for hyperglycemia management, the JUAN is resolved, and the hyponatremia is greatly improved after getting the D5 half-normal saline -Of note, patient did have one positive blood culture but repeats were negative and this likely contaminant -Urine culture grew Pseudomonas sensitive to Levaquin -Continuing with Levaquin for another 2 days continue with fall risk precautions -Patient remains n.p.o. status after the failed swallow eval and is on NG tube with Jevity #JUAN on CKD 3, resolved -Patient's baseline creatinine is outpatient is approximately 1.02. This morning creatinine was 1.2 -This likely was secondary to patient's poor oral intake with a prerenal etiology/dehydration -The D5W half-normal saline was stopped today as the hyponatremia is significantly improved -Continue to follow and repeat morning metabolic panels #Positive blood culture -This is likely contaminant as repeat cultures were negative and only 1 of 2 initials were positive. He vancomycin that was started has been stopped. #Aspiration risk -Patient presented with metabolic encephalopathy due to multiple factors listed above and she failed a bedside swallow eval -Continuing with NG tube Jevity feeds -Fingersticks remain every 6 hours #Chronic anemia -Hemoglobin came down to 9.1 today after having been in the 10s and 11s -No current sources of bleeding identified we will continue to monitor for bleeding and repeat blood counts #History of heart failure with preserved ejection fraction -Patient presented with dehydration Continuing to monitor intake and output closely -Home blood pressure meds are being held -Recently restarted the 20 mg IV Lasix #History of DVTs -Home rivaroxaban continued #Dyslipidemia -Continue with home simvastatin #Hypertension -Continue to hold home medications -We will continue to monitor pressures -With improvement in acute kidney injury/renal function, will assess whether resuming any medications is warranted #History of asthma -Continue with the incentive spirometry at bedside -Patient does not currently take any medications related to her asthma -We will continue to monitor patient's respiratory status #Social concerns -As documented repeatedly on previous notes, extensive discussions have been held with the patient and her daughter (who is the patient's power of in class special education teacher). They continue to express a desire for full CODE STATUS but are aware that patient is unsafe for discharge at this time -Repeat physical therapy evaluation today again recommends continued rehabilitation after discharge; continue with PT/OT -The patient family services service is working on a safe discharge plan CODE STATUS, remains full code #DVT prophylaxis: Continuing with home rivaroxaban Disposition: 1 more day left of antibiotics for asymptomatic Pseudomonas UTI with reevaluation for swallow study and ongoing planning for safe discharge. GME ATTESTATION My faculty preceptor for this patient encounter was physically present during the encounter and was fully available. All aspects of the patient interview, examination, medical decision making process, and medical care plan development were reviewed and approved by the faculty preceptor. The faculty preceptor is aware and concurs with the plan as stated in the body of this note and will attest to such by his/her cosignature. ATTENDING NOTE I personally examined the patient and discussed findings, studies and plan as described by the resident physician above. VS, I&O, 24H, Fishbone Vital Signs/I&O Vital Signs Date Time Temp Pulse Resp B/P (MAP) Pulse Ox O2 Delivery O2 Flow Rate FiO2 01/01/21 14:00 98.2 66 22 111/47 (68) 96 Room Air I&O- Last 24 Hours up to 6 AM 01/01/21 06:00 Intake Total 2745 ml Output Total 601 ml Balance 2144 ml Laboratory Data 24H LABS Laboratory Tests 2 12/31/20 20:27: Bedside Glucose (Misc Panel) 367H 01/01/21 00:32: Bedside Glucose (Misc Panel) 333H 01/01/21 04:13: Bedside Glucose (Misc Panel) 263H 01/01/21 06:44: Nucleated Red Blood Cells % (auto) 0.0, Anion Gap 7L, Glomerular Filtration Rate 45.2, Calcium Level 7.5L, Magnesium Level 1.7L 01/01/21 08:07: Bedside Glucose (Misc Panel) 296H 01/01/21 11:15: Bedside Glucose (Misc Panel) 191H 01/01/21 16:03: Bedside Glucose (Misc Panel) 217H CBC/BMP Laboratory Tests 01/01/21 06:44 Microbiology Microbiology 12/26/20 Urine Culture - Final, Complete Pseudomonas Aeruginosa 12/25/20 Blood Culture - Final, Complete NO GROWTH AFTER 5 DAYS 12/25/20 Blood Culture - Final, Complete Staphylococcus Haemolyticus Staphylococcus Epidermidis ASHLY MARTINEZ D.O. Jan 01, 2021 19:08 JOSHUA KNIGHT MD Jan 01, 2021 23:45
[2021-01-01] MEDS: SIMVASTATIN 20 MG TAB NG SCH (20:09)
[2021-01-01] MEDS: LEVEMIR (INSULIN DETEMIR) 1 UNITS/0.01ML SC SCH (20:10)
[2021-01-01 22:00] VITALS: BP 114/46
[2021-01-02] MEDS: HumaLOG INSULIN (NovoLOG) PER UNIT SC SCH ×6 (00:08→20:43)
[2021-01-02] MEDS: LevoFLOXacin 250 MG TABLET NG SCH (05:29)
[2021-01-02] MEDS: SLF 3 ML SYR IV SCH ×3 (05:29→21:32)
[2021-01-02 06:00] VITALS: BP 119/51
[2021-01-02 06:41] LABS: HEMOGLOBIN 9.2 g/dl (12.0-15.5); MEAN CORPUSCULAR HGB CONC 30.7 g/dl (32.0-36.5); MEAN CORPUSCULAR VOLUME 97.7 fl (80.0-96.0); PLATELET COUNT, AUTOMATED 148 10^3/uL (150-450); RED BLOOD COUNT 3.07 10^6/uL (4.00-5.40); WHITE BLOOD COUNT 9.3 10^3/uL (4.0-10.0)
[2021-01-02 07:36] LABS: CALCIUM LEVEL 7.7 MG/DL (8.8-10.2); CREATININE FOR GFR 1.2 MG/DL (0.55-1.30); GLOMERULAR FILTRATION RATE 46.5 (>39); MAGNESIUM LEVEL 2.1 MG/DL (1.8-2.4)
--- NOTE | 2021-01-02 08:47 | REP ---
INDICATION: NG tube advanced yesterday and placement was not rechecked. COMPARISON: Comparison chest x-ray December 29, 2020. TECHNIQUE: Portable upright AP chest radiograph. FINDINGS: The right chest wall is excluded from the field of view. There is a PleurX catheter in place on the right. A nasogastric tube is seen terminating at the gastroesophageal junction. The side hole is in the distal esophagus. This should be advanced. Mitral annular calcification is seen. There is subtle hazy opacity at the left base and a small quantity of left pleural fluid is suspected. No infiltrate is seen. IMPRESSION: NG tube at the GE junction with side hole in the distal esophagus. This should be advanced.. <Electronically signed by Damien Braun > 01/02/21 [id number]
[2021-01-02] MEDS: FUROSEMIDE 20MG/2ML VIAL (J1940) IV SCH (09:00)
[2021-01-02 10:00] VITALS: BP 123/53
[2021-01-02] MEDS ORDERED: FUROSEMIDE 20MG/2ML VIAL (J1940) IV ONE (10:15)
--- NOTE | 2021-01-02 11:04 | REP ---
INDICATION: check NG tube placement. COMPARISON: Earlier today TECHNIQUE: Portable FINDINGS: The technique utilized in obtaining the radiograph has magnified the cardiac silhouette and attenuated the interstitial markings. A nasogastric tube seen previously has been advanced, however, the proximal port is seen at the level of the gastroesophageal junction. There are no other significant changes. There is stable bilateral CP angle blunting. There is no change in the right-sided thoracotomy tube. There is no change in the osseous structures. There is no change in the cardiomediastinal silhouette. IMPRESSION: Nasogastric tube as described above. <Electronically signed by Otto Lopez > 01/02/21 1100
[2021-01-02] MEDS: ASPIRIN 81 MG CHEW TABLET NG SCH (11:32)
--- NOTE | 2021-01-02 13:11 | REP ---
INDICATION: verify NG tube placement. COMPARISON: 01/02/2021 10:53 a.m. TECHNIQUE: Single portable AP view of the chest was performed. FINDINGS: The nasogastric tube has been advanced, the side port is approximately 2 cm distal to the gastroesophageal junction. Right pleural catheter is again noted. Mild blunting of both costophrenic angles is unchanged. The remainder of the study is unchanged. IMPRESSION: The nasogastric tube has been advanced, the side port is now 2 cm distal to the gastroesophageal junction. <Electronically signed by Channing Sanchez > 01/02/21 [id number]
[2021-01-02 14:00] VITALS: BP 124/53
[2021-01-02] MEDS: ACETAMINOPHEN TAB 650MG DOSE (2X325MG) PO PRN (16:50)
--- NOTE | 2021-01-02 17:55 | IPNPDOC ---
Date Seen The patient was seen on 01/02/21. Progress Note SUBJECTIVE: Bel was seen and examined this morning by the hospitalist service while lying upright in bed. Patient just had a bowel movement using bedpan reports no associated issues. She reports no acute events overnight. She does report some baseline chronic shortness of breath and nonproductive cough that has been unchanged since being admitted. Once again this morning, patient denies any current or overnight dysuria, flank pain, suprapubic pain, or hematuria. She denies any chest pain, palpitations, overnight fever, chills, night sweats, abdominal pain, nausea, vomiting. OBJECTIVE PHYSICAL EXAMINATION: VITAL SIGNS: Please see below. GENERAL: Pleasant elderly female lying upright in bed. NG tube in place still. No acute distress. HEENT: Normocephalic, atraumatic. Noninjected, anicteric sclera. There is an NG tube present through the right nare. Oral cavity: Moist mucous membranes. No pharyngeal erythema or exudate. Neck: No lymphadenopathy appreciated. Trachea midline. No significant JVD appreciated CARDIOVASCULAR: There remains a 2/6 systolic murmur appreciated best over the right parasternal second intercostal space. No rubs appreciated. RESPIRATORY: Diminished breath sounds throughout with a slightly decreased tidal volume. Mild bibasilar crackles present. Breathing room air. No accessory muscle use. Speaking full sentences. ABDOMINAL: Bandages remain over the right lower quadrant; when removed there are 2 areas of ulceration that appear in different stages of healing with no active discharge. Hypoactive bowel sounds throughout with some isolated higher pitched bowel sounds appreciated. Moderate tenderness of right upper and left upper quadrants. There is no rigidity appreciated there is also 12+ presacral pitting edema. EXTREMITIES: There is 2+ pitting edema of distal bilateral lower extremities. 2+ radial pulses bilaterally NEUROLOGICAL: Gravelly, nondysarthric speech PSYCHOLOGICAL: Pleasant mood. Appropriate appearing affect. LABORATORY DATA, IMAGING STUDIES, MICROBIOLOGY: Please see below. ASSESSMENT AND PLAN: This is a 75yo female with history of hormone receptor positive right breast invasive ductal carcinoma first diagnosed in 2002 with metastases to lungs and pleura (R>L) s/p chemo, radiation, lumpectomy currently on hormone therapy with recurrent right-sided malignant pleural effusions and right Pleurx catheter, chronic kidney disease stage III, hypertension, diabetes mellitus, chronic anemia, diastolic CHF with multiple recent hospital admissions who was brought in after fall and subsequently found to have an JUAN on CKD with hyperglycemia and hyponatremia. Patient will require subacute rehab post discharge. #Hyperglycemia, significantly improved -Serum glucose this morning was 200. Most recent [id number] FSBS was 190. This is significantly improved over the past few mornings. -Etiology of patient's hyperglycemia was most likely attributable to the D5 half-normal saline she was receiving in the setting of her hypernatremia. D5 half-normal saline was stopped on 01/01 after serum sodium normalized. Long- acting dose was doubled from 10 to 20 units every night on 01/01. -Of note, patient's diabetes appears to be poorly controlled at home as her A1c was 11 on 12/25/2020. -Continue with sliding scale insulin -Continue with Jevity feeds via NG tube -Fingersticks remain every 6 hours #Asymptomatic pseudomonas urinary tract infection -Today is the fifth and final day of levofloxacin dosing. Patient received an initial 500 mg IV dose on day 1, and then received 250 mg NG tube the past 4 days. -Once again the patient does not have any leukocytosis today nor has she had an elevated white count at any point during her admission. -Important to note that as her JUAN on CKD, hyponatremia, and hypokalemia have all improved and/or resolved, her encephalopathy on presentation has resolved. #Moderate fluid overload in setting of history of heart failure with preserved ejection fraction -Patient initially presented dehydrated but on exam today had some distal lower extremity pitting edema and fine bibasilar crackles. -This is most likely the result of continued NG tube feedings in the setting of failed swallow eval, as well as the IV fluid administration in the form of D5 half-normal saline that was stopped on 01/01 once hyponatremia resolved -Lasix had been resumed recently at 20 mg IV daily; due to physical exam fluid overload signs today, have increased for today to 40 mg IV -Continuing to monitor intake and output closely -Home blood pressure meds are being held #Hypernatremia, resolved -Most likely prerenal etiology secondary to dehydration as calculated fractional excretion of sodium was less than 1% -Serum sodium remained WNL this morning for second consecutive day -The patient had been on dextrose 5 water half-normal saline and as result of the improved sodium, this was stopped in 01/01. -Continue to monitor on follow-up metabolic panel -Pt remains on tube feeds via NG tube due to failed swallow study #Hypokalemia and Hypocalcemia, resolved -Serum potassium 4, magnesium 2.1 this morning. -S/p 40 mEq KCl NG tube supplementation as well as 1 mg IV magnesium run supplementation on 01/01. -Continue to monitor on repeat metabolic panels #Metabolic encephalopathy likely multifactorial, resolved -Likely secondary to presenting JUAN, hyponatremia, and hyperglycemia -Hyperglycemia has significantly improved, the JUAN and hypernatremia have resolved. Please see above sections for further details. -Of note, patient did have one positive blood culture but repeats were negative and this was likely contaminant -Urine culture grew Pseudomonas sensitive to Levaquin; today ji fifth and final day of Levaquin dosing. -Patient remains n.p.o. status after the failed swallow eval and is on NG tube with Jevity #JUAN on CKD 3, resolved -Patient's baseline creatinine is outpatient is approximately 1.02. -Today ji third consecutive day of creatinine of 1.2 -JUAN likely was secondary to patient's poor oral intake with a prerenal etiology/dehydration -Continue to follow and repeat morning metabolic panels #Positive blood culture -This is likely contaminant as repeat cultures were negative and only 1 of 2 initials were positive. He vancomycin that was started has been stopped. #Aspiration risk -Patient presented with metabolic encephalopathy due to multiple factors listed above and she failed a bedside swallow eval -A repeat bedside speech therapy swallow eval has been ordered -Continuing with NG tube Jevity feeds for now -Fingersticks remain every 6 hours #Chronic anemia -Hemoglobin 9.2 this morning. Second consecutive day in the 9s. There is been a steady decrease in hemoglobin since admission -No identifiable sources of bleeding -Type and screen has been ordered in the event transfusion is warranted. -Of note, patient remained on her home rivaroxaban. -we will continue to monitor for bleeding and repeat blood counts #History of DVTs -Home rivaroxaban continued #Dyslipidemia -Continue with home simvastatin #Hypertension -Continue to hold home medications -We will continue to monitor pressures -With improvement in acute kidney injury/renal function, will assess whether re suming any medications is warranted #History of asthma -Continue with the incentive spirometry at bedside -Patient does not currently take any medications related to her asthma -We will continue to monitor patient's respiratory status #Social concerns -As documented repeatedly on previous notes, extensive discussions have been held with the patient and her daughter (who is the patient's power of deputy commonwealth's attorney). They continue to express a desire for full CODE STATUS but are aware that patient is unsafe for discharge at this time -On direct medication with the physical therapy service today, patient needs warrant short-term rehab upon discharge. Currently [facility] is collaborating on a plan for this upon discharge. -The patient family services service is working on a safe discharge plan CODE STATUS: full code #DVT prophylaxis: Continuing with home rivaroxaban Disposition: Pending repeat swallow study and will require subacute rehab upon discharge. GME ATTESTATION My faculty preceptor for this patient encounter was physically present during the encounter and was fully available. All aspects of the patient interview, examination, medical decision making process, and medical care plan development were reviewed and approved by the faculty preceptor. The faculty preceptor is aware and concurs with the plan as stated in the body of this note and will attest to such by his/her cosignature. ATTENDING NOTE I personally examined the patient and agree with the findings and plan as detailed in the resident physician note above. VS, I&O, 24H, Fishbone Vital Signs/I&O Vital Signs Date Time Temp Pulse Resp B/P (MAP) Pulse Ox O2 Delivery O2 Flow Rate FiO2 01/02/21 14:00 98.2 69 18 124/53 (76) 97 Room Air I&O- Last 24 Hours up to 6 AM 01/02/21 06:00 Intake Total 1040 ml Output Total 200 ml Balance 840 ml Laboratory Data 24H LABS Laboratory Tests 2 01/01/21 19:48: Bedside Glucose (Misc Panel) 248H 01/01/21 23:56: Bedside Glucose (Misc Panel) 228H 01/02/21 04:12: Bedside Glucose (Misc Panel) 193H 01/02/21 06:21: Nucleated Red Blood Cells % (auto) 0.0, Anion Gap 6L, Glomerular Filtration Rate 46.5, Calcium Level 7.7L, Magnesium Level 2.1 01/02/21 08:03: Bedside Glucose (Misc Panel) 190H 01/02/21 11:52: Bedside Glucose (Misc Panel) 175H 01/02/21 16:16: Bedside Glucose (Misc Panel) 267H CBC/BMP Laboratory Tests 01/02/21 06:21 Microbiology Microbiology 12/26/20 Urine Culture - Final, Complete Pseudomonas Aeruginosa 12/25/20 Blood Culture - Final, Complete NO GROWTH AFTER 5 DAYS 12/25/20 Blood Culture - Final, Complete Staphylococcus Haemolyticus Staphylococcus Epidermidis ASHLY MARTINEZ D.O. Jan 02, 2021 17:55 JOSHUA KNIGHT MD Jan 03, 2021 07:39
--- NOTE | 2021-01-02 18:28 | CR ---
ADVANCED WOUND CARE CONSULTATION DATE: 01/02/2021 This is via Telemedicine. REQUESTING PHYSICIAN: Dr. Quispe REASON FOR CONSULTATION: Regarding treatment suggestions for multiple wounds. Wound Care Telemedicine provides a visual assessment of a wound without the benefit of physical examination. It can assist with establishing a diagnosis and etiology. This allows for an initial treatment plan. As wounds often change, it may be necessary to modify the original care. Our recommendation is periodic wound reassessment to monitor treatment. Failure to comply may result in non-healing of the wound, possible complications and/or a poor outcome. The recommendations given will serve as treatment options. As I will not be following this patient, this care plan will require the attending physician to give and sign the orders. Upon discharge, outpatient follow up can be scheduled at our [facility]. Patient identified. Verbal consent obtained. HISTORY OF PRESENT ILLNESS: A 75-year-old diabetic, poorly controlled, found unresponsive in her home for an undisclosed period of time with hyperglycemia. She was resuscitated and has been admitted to the hospital. The patient sustained multiple wounds secondary to pressure from being in the right lateral decubitus position for an undisclosed period of time. It should be noted that the patient is at risk for multiple evolving pressure injuries that may not be visible at this time but can develop over the next week. Specifically, the patient has a right lateral hip wound measuring 4.5 cm by 6.0 cm, a right lateral thigh wound measuring 1.6 cm by 2.0 cm and a right lateral knee cluster wound measuring 7.0 cm by 5.5 cm, 80% of the cluster presenting as a wound. Wound depths for the first two wounds are 0.1 cm. The patient also has an unstageable pressure injury involving her right heel measuring 2.8 cm by 4.0 cm. This area does not show any drainage. There is no erythema involving the periwound and at this time ,the eschar appears dry without Additionally, the patient has a stage 2 pressure injury involving the coccyx measuring 1.7 cm by 2. 0 cm. The drainage from this wound is serosanguineous. The patient's blood glucose has been somewhat controlled and it is fluctuating in the 175 to 185 range. Nutrition is being provided by tube fedings via an NG tube. RECOMMENDATIONS: 1. All wounds should be covered with foam dressings. 2. A consult with Plastic Surgery should be obtained, and I have discussed this with Dr. Mcintyre in terms of bedside debridement of the right lateral hip, right lateral thigh and right lateral knee wounds. 3. The right heel wound should be painted with Betadine, covered with a foam dressing and a heel flow boot for offloading is mandatory. 4. A consult with Dr. Camarena should be obtained from Podiatry. I have discussed this with Dr. Camarena regarding treatment of right heel wound 5. Protective heel flow boot should be utilized for the left heel which is at risk as well for pressure injuries. 6. Care should be taken with the NG tube for tube feedings to avoid any pressure injuries involving the nares. 7. There is no indication for antibiotic therapy at this time. 8. Depending upon how the patient proceeds, a follow up Telemedicine may be indicated. 9. It should be known that an unstageable pressure injury, specifically the right heel, if and when dbrided, can develop rapidly into a stage 4 pressure injury this should not be viewed as a complication or poor care but as a natural progression of the wound pathology. MARK
[2021-01-02] MEDS: RIVAROXABAN 20 MG TAB (XARELTO) TF SCH (19:25)
[2021-01-02] MEDS: LEVEMIR (INSULIN DETEMIR) 1 UNITS/0.01ML SC SCH (20:44)
[2021-01-02] MEDS: SIMVASTATIN 20 MG TAB NG SCH (20:44)
[2021-01-02 22:00] VITALS: BP 129/62
[2021-01-03] MEDS: HumaLOG INSULIN (NovoLOG) PER UNIT SC SCH ×6 (00:14→20:41)
[2021-01-03 02:00] VITALS: BP 126/58
[2021-01-03] MEDS: SLF 3 ML SYR IV SCH ×3 (05:54→20:41)
[2021-01-03 06:00] VITALS: BP 135/68
[2021-01-03] MEDS ORDERED: OXYMETAZOLINE 0.05% NASAL SPRAY (AFRIN) PRN (06:15)
[2021-01-03 06:22] LABS: BASO % 0.2 % (0.0-1.0); EOS % 0.5 % (0.0-3.0); HEMATOCRIT 28.1 % (36.0-47.0); HEMOGLOBIN 8.7 g/dl (12.0-15.5); LYMPH # 0.9 10^3/uL (1.5-5.0); LYMPH % 11.1 % (24.0-44.0); MEAN CORPUSCULAR VOLUME 96.9 fl (80.0-96.0); MONO # 0.5 10^3/uL (0.0-0.8); MONO % 6.3 % (2.0-8.0); NEUTROPHILS # 6.8 10^3/uL (1.5-8.5); NEUTROPHILS % 81.2 % (36.0-66.0); PLATELET COUNT, AUTOMATED 174 10^3/uL (150-450); WHITE BLOOD COUNT 8.4 10^3/uL (4.0-10.0)
[2021-01-03 06:52] LABS: CREATININE FOR GFR 1.11 MG/DL (0.55-1.30); GLOMERULAR FILTRATION RATE 50.9 (>39); POTASSIUM SERUM 3.9 MEQ/L (3.5-5.1)
[2021-01-03] MEDS: ASPIRIN 81 MG CHEW TABLET NG SCH (09:04)
[2021-01-03] MEDS: FUROSEMIDE 40MG/4ML VIAL (J1940) IV SCH (09:13)
[2021-01-03 10:00] VITALS: BP 125/52
--- NOTE | 2021-01-03 12:30 | IPNPDOC ---
Date Seen The patient was seen on 01/03/21. Progress Note SUBJECTIVE: Bel was seen and examined this morning while sitting in bedside chair. She had just finished having a bowel movement while using the bedpan. There was no reported pain with defecation or blood in the stool. Also of significant note this morning, patient was seen by speech therapy who performed a fiberoptic endoscopic evaluation of swallowing (FEES) test and unfortunately the patient failed the test and needs to remain npo. We discussed this update directly with the patient and explained that remaining on NG tube feeds chronically is not a feasible option. As such, we broached the possibility of placing a PEG tube. Patient seemed to be agreeable should this be a necessary course. Upon review, patient denies any current or overnight fever, chills, shortness of breath, chest pain, palpitations, nausea, vomiting, abdominal pain, dysuria, flank pain, or hematuria. Overnight, nursing orders were placed for bandaging over patient's left heel and for dressing changes of all bandages of her wounds. The patient was also seen via telemedicine visit with Dr. Looney of wound care yesterday (recommendations detailed below). OBJECTIVE PHYSICAL EXAMINATION: VITAL SIGNS: Please see below. GENERAL: Elderly female sitting in bedside chair. NG tube in place. No acute distress. HEENT: Normocephalic, atraumatic. Noninjected, anicteric sclera. There is a NG tube present through the right nare. Neck: Trachea midline. Supple. Mild JVD appreciated. CARDIOVASCULAR: Regular rate, regular rhythm. Her systolic murmur that has been present on previous exams was not appreciated today. No rubs were appreciated. RESPIRATORY: There are diffuse moderate rhonchi with bibasilar mild inspiratory crackles. Decreased tidal volume. Symmetric chest expansion. No accessory muscle use. Breathing room air. Speaking full sentences. ABDOMINAL: Hypoactive bowel sounds throughout. Mild tenderness of right upper and left upper abdominal quadrants. Appears to be umbilical hernia present. There remains bandages in place over the right lower abdominal quadrant that were replaced this morning and have some saturation. No rigidity. 1+ pitting presacral edema. No CVA tenderness. EXTREMITIES: 2+ radial pulses bilaterally the remaining bandages in place over the right lateral hip that were replaced this morning. There is also a bandage in place over the left heel. NEUROLOGICAL: Responding appropriately to all questions and commands. No gross focal neurologic deficits are appreciated. Nondysarthric speech. PSYCHOLOGICAL: Mood and affect appear appropriate. LABORATORY DATA, IMAGING STUDIES, MICROBIOLOGY: Please see below. 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 Patient was also found to have an asymptomatic Pseudomonas UTI for which she is completed 5 days of antibiotics. Her electrolyte issues and JUAN have resolved. Sugars are better controlled with a doubling of long-acting dose. At this point, barriers to discharge are repeated failure of swallow study with a pending PEG tube placement and continued diuresis. Patient will require subacute rehab upon discharge. #Nutrition concerns in the setting of repeated failed swallow studies -A repeat swallow study was ordered and speech therapy performed a fiberoptic endoscopic valuation of swallowing test on 01/03 (FEES), that unfortunately patie nt failed. -NG tube was placed after initial swallow failure but she will now require long-term nutrition via a PEG tube. Both the patient and patient's daughter understand the need for a feeding tube at this point and are agreeable for placement. -The general surgery service has been contacted in regards to placing PEG. -Continue with NG tube Jevity feeds pending PEG placement. -Continue with aspiration precautions #Moderate fluid overload in setting of history of heart failure with preserved ejection fraction -This is likely secondary to the D5 half-normal saline fluids she received for her hyponatremia as well as the continue Jevity NG tube feeds. -Patient again has distal lower extremity pitting edema and presacral edema with some fine crackles in the bases. She was given a second dose of 20 mg IV Lasix yesterday but was still net positive. -As a result, we had now switched her to 40 mg IV Lasix scheduled moving forward -Continue to monitor weights, urine output/intake and output #Asymptomatic Pseudomonas urinary tract infection, resolved -Patient was found to have Pseudomonas on urine culture and was treated with 5 days of levofloxacin. -6/24 was the fifth and final day of dosing. Patient is no longer on any antibiotics at this time. -At no point during admission has patient had leukocytosis. She is remained afebrile as well. #Multiple skin wounds -There was a telemedicine assessment by Dr. Looney of the wound care service on 01/02 -Summary of Dr. Looney's recommendations: Foam dressing for all wounds, advi sed plastic surgery consult for bedside debridement of right lateral hip/right lateral knee/right lateral thigh wounds, Betadine for right heel wound and offloading boot (podiatry assessment advised as well), prophylactic boot for left heel) #Hyperglycemia, significantly improved and stable -This was most likely the result of receiving D5 half-normal saline along with concurrent Jevity feeds. D5 half-normal saline was stopped earlier this week with resolution of hypernatremia. -On 01/02, long-acting dose was increased from 10 units to 20 units daily. -Sugars this morning 174, marking second consecutive day of relatively well- controlled sugars. -Continue with the short acting insulin sliding scale as well as the 20 units of long-acting daily. -Patient remains on Jevity feeds via NG tube pending PEG placement. #Status post hypernatremia -Patient was hypernatremic upon presentation and received D5 half-normal saline -Serum sodium returned to normal limits earlier this week and D5 half-normal saline was subsequently stopped. #Positive blood culture -This was likely a contaminant, as repeat cultures were negative and only 1 of 2 initial sample were positive. -Vancomycin has been started after initial positive was subsequently stopped. #Chronic kidney disease stage III -Patient presented with acute renal failure that was likely secondary to recent poor oral intake prior to admission, prerenal etiology -Since 12/31, serum creatinine has remained around her baseline of 1 #Chronic anemia -Type and screen has been ordered should transfusion be warranted -Patient continues on home rivaroxaban i/s/0 history of DVTs #Dyslipidemia -Continue with home #History of asthma -Continue with the incentive spirometry at bedside -Patient does not currently take any medications related to her asthma -We will continue to monitor patient's respiratory status; she has been breathing room air and saturating well. #History of hypertension -Continue to hold home medications -We will continue to monitor pressures -With improvement in acute kidney injury/renal function, will assess whether resuming any medications is warranted should pressures increase #Social concerns -Upon evaluation by therapy service, patient will require subacute rehab upon discharge #DVT prophylaxis: Continue with home rivaroxaban CODE STATUS: Full code Disposition: Pending PEG tube placement after multiple failed swallow studies; will require subacute rehab upon discharge GME ATTESTATION My faculty preceptor for this patient encounter was physically present during the encounter and was fully available. All aspects of the patient interview, examination, medical decision making process, and medical care plan development were reviewed and approved by the faculty preceptor. The faculty preceptor is aware and concurs with the plan as stated in the body of this note and will attest to such by his/her cosignature. ATTENDING NOTE I personally examined the patient and discussed her findings and plan with the resident team and noted above. Unfortunately, Ms. Santiago continued to fail swallow evaluations and at this time we have discussed with her and her daughter who have both agreed to pursuing the PEG tube for chcf nutrition. VS, I&O, 24H, Fishbone Vital Signs/I&O Vital Signs Date Time Temp Pulse Resp B/P (MAP) Pulse Ox O2 Delivery O2 Flow Rate FiO2 01/03/21 10:00 98.0 79 15 125/52 (76) 98 Room Air I&O- Last 24 Hours up to 6 AM 01/03/21 06:00 Intake Total 900 ml Output Total 401 ml Balance 499 ml Laboratory Data 24H LABS Laboratory Tests 2 01/02/21 11:52: Bedside Glucose (Misc Panel) 175H 01/02/21 16:16: Bedside Glucose (Misc Panel) 267H 01/02/21 19:55: Bedside Glucose (Misc Panel) 219H 01/03/21 00:09: Bedside Glucose (Misc Panel) 215H 01/03/21 04:18: Bedside Glucose (Misc Panel) 195H 01/03/21 05:44: Immature Granulocyte % (Auto) 0.7, Neutrophils (%) (Auto) 81.2H, Lymphocytes (%) (Auto) 11.1L, Monocytes (%) (Auto) 6.3, Eosinophils (%) (Auto) 0.5, Basophils (%) (Auto) 0.2, Neutrophils # (Auto) 6.8, Lymphocytes # (Auto) 0.9L, Monocytes # (Auto) 0.5, Eosinophils # (Auto) 0.0, Basophils # (Auto) 0.0, Immature Granulocyte # (Auto) 0.1H, Nucleated Red Blood Cells % (auto) 0.0, Platelet Estimate , Anion Gap 6L, Glomerular Filtration Rate 50.9, Calcium Level 8.0L, Magnesium Level 2.0 01/03/21 08:09: Bedside Glucose (Misc Panel) 173H CBC/BMP Laboratory Tests 01/03/21 05:44 Microbiology Microbiology 12/26/20 Urine Culture - Final, Complete Pseudomonas Aeruginosa 12/25/20 Blood Culture - Final, Complete NO GROWTH AFTER 5 DAYS 12/25/20 Blood Culture - Final, Complete Staphylococcus Haemolyticus Staphylococcus Epidermidis ASHLY MARTINEZ D.O. Jan 03, 2021 12:29 JOSHUA KNIGHT MD Jan 04, 2021 08:00
[2021-01-03 14:00] VITALS: BP 125/54
[2021-01-03] MEDS: PANTOPRAZOLE 40MG VIAL (C9113 PER 1) IV SCH (15:01)
--- NOTE | 2021-01-03 16:48 | CR ---
CONSULTATION DATE: 01/03/2021 REASON FOR CONSULTATION: Heel ulceration. Bel Santiago is a patient who was admitted to [facility] due to fall at home. She was found to have pressure ulcerations. She was evaluated by Dr. Looney, who asked for me to take a close look at it to evaluate the need for debridement. PAST MEDICAL HISTORY: Significant for: 1. Diabetes. 2. Chronic kidney disease. 3. Invasive ductal carcinoma of the breast with metastases to lungs and pleura. 4. Chronic anemia. 5. History of deep venous thrombosis (DVT). 6. Hyperlipidemia. 7. Depression. 8. Dizziness. 9. Hypertension. 10. Asthma. 11. Diastolic congestive heart failure (CHF). SURGICAL HISTORY: 1. Right breast lumpectomy. 2. Tubal ligation. 3. History of right chest tube. 4. Cataract surgery. SOCIAL HISTORY: Denies tobacco and alcohol use. ALLERGIES: Adhesive tape and EXENATIDE. REVIEW OF SYSTEMS: Negative for nausea, vomiting, fever, chills. Vital signs are reviewed. She has remained afebrile. Labs are reviewed. White blood cell count is 8.4. LOWER EXTREMITY EXAMINATION: Left foot is free of ulcerations. On the right side there is an ulceration to the right plantar posterior heel. It is unstageable pressure injury. There is no fluctuance. There is no malodor, and there is no local erythema. ASSESSMENT: A 75-year-old diabetic female with right heel unstageable pressure ulceration. TREATMENT: Agree with current wound care. At this time debridement is not indicated. Strict offloading with heel-float boots is imperative. If wound becomes more fluctuant or otherwise changes, please re-consult for debridement.
[2021-01-03 18:00] VITALS: BP 125/53
[2021-01-03] MEDS: SANTYL OINT 30GM TOP SCH (18:09)
[2021-01-03] MEDS: RIVAROXABAN 20 MG TAB (XARELTO) TF SCH (18:09)
--- NOTE | 2021-01-03 18:26 | CR.PDOC ---
Plastic Surgery Consultation Date of Consultation 01/03/21 History and Physical CONSULT REPORT FOR: Wound care REASON FOR CONSULTATION: Right hip, right thigh, and right knee open wound. HISTORY OF PRESENT ILLNESS: 75-year-old female admitted for episode of hypoglycemia. Patient states that she she fell at home and couldn't get up she was found to 5 days later. Patient developed new pressure injuries on the right side of her body. She is feeling well today. I'm here to evaluate her wounds on the right hip right thigh and right knee. She denies any pain at this time in the area. Invasive ductal carcinoma of the right breast, metastatic to lungs and pleura bilaterally R> L, hormone receptor positive first diagnosed in 2002 s/p lump ectomy, chemo and radiotherapy, On hormone therapy Recurrent right sided malignant pleural effusion with Right Pleurx catheter Chronic Anemia H/o Fever and leukocytosis of unknown origin, in October 2020. 1 pleural fluid culture grew Kocuria Rosea. CKD stage 3 DM H/O DVT HLD depression Dizziness HTN Asthma Prior exposure to COVID Diastolic CHF Gait instability/falls PAST SURGICAL HISTORY: Right breast lumpectomy tubal ligation H/o right chest tube. bilateral cataract surgery Right Pleurex catheter placement. PREVIOUS ANESTHESIA REACTIONS: denies ALLERGIES: Please see below. HOME MEDICATIONS: Please see below. REVIEW OF SYSTEMS: GENERAL: Denies chills, reports weight gain,. HEENT: Denies blurred vision and double vision. Denies ear symptoms. Denies hoarseness. NECK: Denies any neck pain]. CARDIOVASCULAR: Denies chest pain and palpitations. MUSCULOSKELETAL: Denies arthralgias, back pain and thrombophlebitis. SKIN: Denies rash. Open wounds NEUROLOGIC: Denies headache, stroke and transient ischemic attack. PSYCHIATRIC: Denies anxiety and depression. ENDOCRINE: Denies thyroid disease. HEMATOLOGY/ONCOLOGY: Denies bleeding or clotting disorder. HEART: Denies any chest pains, palpitations, paroxysmal dyspnea, orthopnea. PULMONARY: Denies chronic cough, dyspnea and wheezing. GASTROINTESTINAL: Denies rectal bleeding, family history of colon cancer, constipation, diarrhea, dysphagia, heartburn and jaundice. GENITOURINARY: Denies dysuria, frequency, hematuria and nocturia. ENDOCRINE: Denies polydipsia, polyphagia, polyuria, heat or cold intolerance. INFECTIOUS: Denies any recent upper respiratory tract infection, UTI, need for use of antibiotics. NUTRITION: Reports good appetite. PHYSICAL EXAMINATION: VITALS SIGNS: Please see below. GENERAL APPEARANCE:Patient seen, laying in bed, awake, alert, and oriented. Comfortable, in no acute distress. SKIN: Warm and moist. right lateral hip wound measuring 4.5 cm by 6.0 cm, a right lateral thigh wound measuring 1.6 cm by 2.0 cm and a right lateral knee cluster wound measuring 7.0 cm by 5.5 cm, 80% of the cluster. Dry eschar necrosis present on hip and knee wounds. Right thigh wound is clean. LUNGS: Clear to auscultation bilaterally. No wheezing appreciated. HEART: No chest wall abnormalities. Regular rate and rhythm with no murmurs appreciated. ABDOMEN: Abdomen is soft, non-tender, non-distended. EXTREMITIES: Extremities have no deformities. No edema identified. No calf tenderness. LABORATORY DATA: Please see below. IMPRESSION: Right hip unstaged pressure wound. Right thigh stage 3 wound. Right knee unstaged pressure wound. PLANS: Agree with wound care assessment by Dr Looney. We will start with chemical debridement by [facility] on right hip and knee wounds, which will be followed by surgical debridement of eschar after it softens. No signs of infection on above wounds. Will follow. Patient feels comfortable with the plan. Vital Signs Vital Signs Date Time Temp Pulse Resp B/P (MAP) Pulse Ox O2 Delivery O2 Flow Rate FiO2 01/03/21 18:00 98.5 73 16 125/53 (77) 98 Room Air I&Os I&O- Last 24 Hours up to 6 AM 01/03/21 06:00 Intake Total 900 ml Output Total 401 ml Balance 499 ml Laboratory Data Labs 24H Laboratory Tests 2 01/02/21 19:55: Bedside Glucose (Misc Panel) 219H 01/03/21 00:09: Bedside Glucose (Misc Panel) 215H 01/03/21 04:18: Bedside Glucose (Misc Panel) 195H 01/03/21 05:44: Immature Granulocyte % (Auto) 0.7, Neutrophils (%) (Auto) 81.2H, Lymphocytes (%) (Auto) 11.1L, Monocytes (%) (Auto) 6.3, Eosinophils (%) (Auto) 0.5, Basophils (%) (Auto) 0.2, Neutrophils # (Auto) 6.8, Lymphocytes # (Auto) 0.9L, Monocytes # (Auto) 0.5, Eosinophils # (Auto) 0.0, Basophils # (Auto) 0.0, Immature Granulocyte # (Auto) 0.1H, Nucleated Red Blood Cells % (auto) 0.0, Platelet Estimate , Anion Gap 6L, Glomerular Filtration Rate 50.9, Calcium Level 8.0L, Magnesium Level 2.0 01/03/21 08:09: Bedside Glucose (Misc Panel) 173H 01/03/21 12:02: Bedside Glucose (Misc Panel) 207H 01/03/21 16:11: Bedside Glucose (Misc Panel) 235H CBC/BMP Laboratory Tests 01/03/21 05:44 Microbiology Microbiology 12/26/20 Urine Culture - Final, Complete Pseudomonas Aeruginosa 12/25/20 Blood Culture - Final, Complete NO GROWTH AFTER 5 DAYS 12/25/20 Blood Culture - Final, Complete Staphylococcus Haemolyticus Staphylococcus Epidermidis Home Medications Scheduled Amlodipine Besylate (Amlodipine Besylate) 5 Mg Tablet, 5 MG PO DAILY, (Reported) Aspirin (Aspirin EC) 81 Mg Tablet.dr, 81 MG PO QHS, (Reported) Cholecalciferol (Vitamin D3) (Vitamin D3) 1,000 Unit Tablet, 1,000 UNITS PO QHS, (Reported) Fulvestrant (Faslodex) 250 Mg/5 Ml Syringe, 500 MG IM QMONTH, (Reported) Insulin Glargine,Hum.rec.anlog (Basaglar Kwikpen U-100) 100 Unit/1 Ml Insuln.pen, 25 UNIT SC QAM, (Reported) Insulin Glargine,Hum.rec.anlog (Basaglar Kwikpen U-100) 100 Unit/1 Ml Insuln.pen, 30 UNIT SC QHS, (Reported) Iron Ps Complex/B12/Folic Acid (Poly-Iron 150 Forte Capsule) 1 Each Capsule, 1 CAP PO QHS, (Reported) Liraglutide (Victoza 2-Juan Carlos) 0.6 Mg/0.1 Ml Pen.injctr, 1.2 MG SC QHS, (Reported) Lisinopril (Lisinopril) 20 Mg Tablet, 20 MG PO QHS, (Reported) Rivaroxaban (Xarelto) 20 Mg Tablet, 20 MG PO QHS, (Reported) Simvastatin (Simvastatin) 20 Mg Tab, 20 MG PO QHS, (Reported) Torsemide (Torsemide) 10 Mg Tablet, 10 MG PO DAILY, (Reported) Venlafaxine HCl (Venlafaxine HCl) 75 Mg Tablet, 75 MG PO BID, (Reported) Scheduled PRN Acetaminophen (Tylenol Arthritis) 650 Mg Tablet.er, 650 MG PO Q8H PRN for PAIN, (Reported) Allergies Coded Allergies: adhesive tape (Verified Allergy, Intermediate, rash, 12/14/20) exenatide (Verified Adverse Reaction, Mild, itching, 12/25/20) JORI KIRAN DO Jan 03, 2021 18:26
--- NOTE | 2021-01-03 19:31 | CR ---
CONSULTATION DATE: 01/03/2021 REASON FOR CONSULTATION: Poor p.o. intake with dysphagia. BRIEF HISTORY OF PRESENT ILLNESS: The patient is a 75-year-old female with metastatic breast cancer who presents with failure to thrive and end-stage issues including new onset decubitus ulcers, a recurrent right metastatic/malignant pleural effusion, chronic anemia, DVT's, congestive heart failure, etc. In any case, I was asked to place a feeding tube for her for enteral feeds. Currently she is getting a nasoenteric tube. PAST MEDICAL HISTORY: The patient's past medical history is significant for: 1. Diabetes mellitus. 2. Chronic kidney disease. 3. Breast cancer, metastatic to the lungs and pleura. 4. Chronic anemia. 5. History of DVT. 6. Hyperlipidemia. 7. Depression. 8. Dizziness. 9. Hypertension. 10. Asthma. 11. Congestive heart failure. 12. Gait instability/falls. PAST SURGICAL HISTORY: The patient's past surgical history is significant for: 1. Previous lumpectomy. 2. Tubal ligation. 3. Chest tube placement. 4. Cataract surgery. PHYSICAL EXAMINATION: GENERAL APPEARANCE: A frail 75-year-old female who looks older than stated age. HEENT: Unremarkable. NECK: Supple without adenopathy. HEART: The patient does have a murmur appreciated with a regular rhythm. LUNGS: Diminished bilaterally, more so on the right than left. ABDOMEN: Soft, nontender, nondistended. She does have an umbilical hernia that is easily reducible. IMPRESSION AND PLAN: The patient has evidence of dysphagia, progressively declining in overall function and medically doing poorly. At this point my recommendation is to proceed with the patient's wishes which are to place a percutaneous endoscopic gastrostomy tube. Unfortunately just from a surgical insight, it seems as though this is palliative at this time and her condition is terminal. In any case, we will plan on the PEG tube. The risks as well as benefits have been discussed with the patient at length, those including but not limited to: infection, bleeding, damage to surrounding structures including bowel with bowel perforation, injury and possible injury to intraabdominal organs as well as failure to place the PEG tube. The patient understands and would like to proceed with this as scheduled. After reviewing her medications, she is currently on Xarelto and unfortunately we will have to postpone her PEG tube placement until that is out of her system and thus it will probably be early next week before we do that.
[2021-01-03] MEDS: SIMVASTATIN 20 MG TAB NG SCH (20:39)
[2021-01-03] MEDS: LEVEMIR (INSULIN DETEMIR) 1 UNITS/0.01ML SC SCH (20:40)
[2021-01-03 22:51] VITALS: BP 124/54
[2021-01-04] MEDS: HumaLOG INSULIN (NovoLOG) PER UNIT SC SCH ×6 (00:15→20:18)
[2021-01-04 02:00] VITALS: BP 121/58
[2021-01-04] MEDS: PANTOPRAZOLE 40MG VIAL (C9113 PER 1) IV SCH ×2 (03:39→15:05)
[2021-01-04 06:00] VITALS: BP 132/64
[2021-01-04 06:24] LABS: HEMATOCRIT 28.4 % (36.0-47.0); HEMOGLOBIN 8.9 g/dl (12.0-15.5); MEAN CORPUSCULAR HEMOGLOBIN 30.2 pg (27.0-33.0); MEAN CORPUSCULAR HGB CONC 31.3 g/dl (32.0-36.5); MEAN CORPUSCULAR VOLUME 96.3 fl (80.0-96.0); PLATELET COUNT, AUTOMATED 183 10^3/uL (150-450); RED BLOOD COUNT 2.95 10^6/uL (4.00-5.40); WHITE BLOOD COUNT 8.3 10^3/uL (4.0-10.0)
[2021-01-04] MEDS: SLF 3 ML SYR IV SCH ×3 (06:38→21:53)
[2021-01-04 06:46] LABS: CALCIUM LEVEL 7.6 MG/DL (8.8-10.2); CREATININE FOR GFR 1.13 MG/DL (0.55-1.30); GLOMERULAR FILTRATION RATE 49.8 (>39); POTASSIUM SERUM 3.9 MEQ/L (3.5-5.1)
[2021-01-04 07:05] LABS: BASOPHILS 1 % (0-1); LYMPHOCYTES 11 % (16-44); MONOCYTES 4 % (0-5); NEUTROPHILS 84 % (28-66)
[2021-01-04 07:15] LABS: PLATELET ESTIMATE NORMAL (NORMAL)
[2021-01-04] MEDS: ASPIRIN 81 MG CHEW TABLET NG SCH (09:00)
[2021-01-04] MEDS: FUROSEMIDE 40MG/4ML VIAL (J1940) IV SCH (09:00)
[2021-01-04] MEDS: SANTYL OINT 30GM TOP SCH (09:01)
[2021-01-04 10:00] VITALS: BP 123/52
[2021-01-04] MEDS: HEPARIN DRIP 25,000 UNITS in IV 1 EA IV SCH (12:42)
[2021-01-04 13:03] LABS: INR 0.98; PROTHROMBIN TIME 13.2 SECONDS (12.5-14.3)
[2021-01-04 13:04] LABS: PARTIAL THROMBOPLASTIN TIME 30.4 SECONDS (24.2-38.5)
--- NOTE | 2021-01-04 13:20 | IPNPDOC ---
Date Seen The patient was seen on 01/04/21. Progress Note SUBJECTIVE: Bel was seen and examined this morning by the hospitalist service while sitting in a bedside chair. She reports some moderate increased work of breathing over the past 24-48 hours with no associated pleuritic chest pain, productive cough, or need for any breathing treatments/supplemental oxygen. She continues to receive NG tube feeds. She denies any current or overnight fever, chills, night sweats, chest pain, palpitations, nausea, abdominal pain, discomfort associated with her NG tube, or significant pain associated with her multiple wounds. OBJECTIVE PHYSICAL EXAMINATION: VITAL SIGNS: Please see below. GENERAL: Pleasant elderly female sitting in bedside chair. NG tube remains in place. No acute distress. HEENT: Normocephalic, atraumatic. NG tube remains in place through right nare. Noninjected, anicteric sclera. Neck: No significant JVD appreciated this morning. No lymphadenopathy appreciated. Trachea midline. CARDIOVASCULAR: Regular rate, regular rhythm. Normal S1, S2. No murmurs were appreciated today although background rhonchorous breath sounds prohibit optimal accuracy. RESPIRATORY: There is diffuse moderate rhonchi throughout with some very mild basilar crackles on the right side posteriorly. Decreased tidal volume with diminished breath sounds overall but symmetric chest expansion. Breathing room air. Speaking full sentences. ABDOMINAL: There are bandages in place over the right flank and right lower abdominal quadrant. Normoactive bowel sounds throughout. Mild epigastric tenderness. Nondistended. No rigidity appreciated. There remains 1+ presacral pitting edema. EXTREMITIES: There are bandages in place over the right heel and right lateral knee. 2+ radial pulses bilaterally. 1+ bilateral lower extremity pitting edema. NEUROLOGICAL: No gross focal neurologic deficits appreciated. Nondysarthric speech. PSYCHOLOGICAL: Mood and affect appear appropriate. LABORATORY DATA, IMAGING STUDIES, MICROBIOLOGY: Please see below. 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 Upon ED presentation, patient had acute renal failure superimposed on CKD with hypernatremia and hyperglycemia. Patient was also found to have an asymptomatic Pseudomonas UTI for which she has completed 5 days of antibiotics. Her electrolyte issues and JUAN subsequently resolved. Sugars were better controlled with long-acting insulin dose doubled. At this point, barriers to discharge are repeated failure of swallow study with a pending PEG tube placement and continued diuresis. Patient will require subacute rehab upon discharge. #Nutrition concerns in the setting of repeated failed swallow studies -A repeat swallow study was ordered and speech therapy performed a fiberoptic endoscopic evaluation of swallowing test on 01/03 (FEES), that unfortunately patient failed. -NG tube was placed after initial swallow failure but she will now require long-term nutrition via a PEG tube. Both the patient and patient's daughter understand the need for a feeding tube at this point and are agreeable for placement. -General surgery has been consulted and evaluated the patient. PEG tube placement planned for next week as patient had been on her home Xarelto. Xarelto was subsequently held on evening of 01/03 and heparin drip initiated on 01/04 in preparation for PEG tube placement. The drip will be stopped 6 hours in advance of PEG surgery time. We will continue to monitor PTT and for bleeding. -Continue with NG tube Jevity feeds pending PEG placement. -Continue with aspiration precautions #Moderate fluid overload in setting of history of heart failure with preserved ejection fraction -Likely secondary to the D5 half-normal saline fluids i/s/o hypernatremia, as well as continued Jevity feeds -Patient had her first significant net negative day during admission (-875 cc) after Lasix dose was switched from 20 to 40 mg IV daily. -We will continue the 40 mg Lasix IV daily today, and reassess fluid status tomorrow -Continue to monitor weights, urine output/intake and output #Multiple skin wounds -Telemedicine visit with wound care (Dr. Looney) on 01/02 resulted in smith bsequent consults of podiatry and plastic surgery to deal with right heel/hip/knee wounds -Plastic surgery has started the patient on collagenase for chemical debridement in preparation of eventual surgical debridement of eschar. Per plastic surgery, there are "no signs of infection" of right thigh/hip/knee wounds. -Podiatry evaluated the patient and does not feel debridement is warranted at this time. Continue with strict offloading of right heel with heel boots -Hospitalist services greatly appreciative of insights and continued care from both podiatry and plastic surgery -Summary of Dr. Looney's recommendations: Foam dressing for all wounds, Betadine for right heel wound and offloading boot, prophylactic boot for left heel #Asymptomatic Pseudomonas urinary tract infection, resolved -Patient was found to have Pseudomonas on urine culture and was treated with 5 days of levofloxacin. -01/03 was the fifth and final day of dosing. Patient is no longer on ant ibiotics at this time. -At no point during admission has patient had leukocytosis. She has rem ained afebrile as well. #Hyperglycemia, significantly improved and stable -This was most likely the result of receiving D5 half-normal saline along with concurrent Jevity feeds. D5 half-normal saline was stopped earlier this week with resolution of hypernatremia. -On 01/02, long-acting insulin dose was increased from 10 units to 20 units daily. -Sugars 174 this morning; marking third consecutive day of relatively well- controlled sugars. -Continue with the short acting insulin sliding scale and 20 units of long- acting daily. -Patient remains on Jevity feeds via NG tube pending PEG placement. #S/p hypernatremia -Patient was hypernatremic upon presentation and received D5 half-normal saline -Serum sodium returned to normal limits earlier this week and D5 half-normal saline was subsequently stopped. #Positive blood culture -This was likely a contaminant, as repeat cultures were negative and only 1 of 2 initial sample were positive. -Vancomycin has been started after initial positive was subsequently stopped. #Chronic kidney disease stage III -Patient presented with acute renal failure that was likely secondary to prerenal etiology associated with recent poor oral intake prior to admission -Since 12/31, serum creatinine has remained around her baseline of 1 #Chronic anemia, stable -Type and screen has been ordered should transfusion be warranted -Home rivaroxaban stopped in preparation for upcoming PEG tube placement; heparin drip started on 01/04 #Dyslipidemia -Continue with home #History of asthma -Continue with the incentive spirometry at bedside -Patient does not currently take any medications related to her asthma -We will continue to monitor patient's respiratory status; she continues to breathe room air and saturate well. #History of hypertension -Home antihypertensives held initially due to acute renal failure; JUAN has resolved but pressures have remained well controlled -Will continue to monitor #Social concerns -Upon evaluation by therapy service, patient will require subacute rehab upon discharge #DVT prophylaxis: Heparin drip started today (01/04) in prep for upcoming PEG; home rivaroxaban stopped on 01/04 CODE STATUS: Full code Disposition: Pending PEG tube placement after multiple failed swallow studies; will require subacute rehab upon discharge GME ATTESTATION My faculty preceptor for this patient encounter was physically present during the encounter and was fully available. All aspects of the patient interview, examination, medical decision making process, and medical care plan development were reviewed and approved by the faculty preceptor. The faculty preceptor is aware and concurs with the plan as stated in the body of this note and will attest to such by his/her cosignature. ATTENDING NOTE I personally examined the patient and discussed her findings and management as detailed by the resident physician above. VS, I&O, 24H, Fishbone Vital Signs/I&O Vital Signs Date Time Temp Pulse Resp B/P (MAP) Pulse Ox O2 Delivery O2 Flow Rate FiO2 01/04/21 10:00 97.4 72 17 123/52 (75) 96 Room Air I&O- Last 24 Hours up to 6 AM 01/04/21 05:59 Intake Total 940 ml Output Total 1625 ml Balance -685 ml Laboratory Data 24H LABS Laboratory Tests 2 01/03/21 16:11: Bedside Glucose (Misc Panel) 235H 01/03/21 19:54: Bedside Glucose (Misc Panel) 255H 01/03/21 20:22: Bedside Glucose (Misc Panel) 259H 01/03/21 23:58: Bedside Glucose (Misc Panel) 220H 01/04/21 03:34: Bedside Glucose (Misc Panel) 261H 01/04/21 06:10: Neutrophils (%) (Auto) , Nucleated Red Blood Cells % (auto) 0.0, Neutrophils 84H, Lymphocytes (Manual) 11L, Monocytes (Manual) 4, Basophils (Manual) 1, Red Blood Cell Morphology NORMAL, Platelet Estimate NORMAL, Anion Gap 3L, Glomerular Filtration Rate 49.8, Calcium Level 7.6L, Magnesium Level 2.0 01/04/21 08:12: Bedside Glucose (Misc Panel) 211H 01/04/21 11:59: Bedside Glucose (Misc Panel) 223H 01/04/21 12:30: Prothrombin Time 13.2, Prothromb Time International Ratio 0.98, Activated Partial Thromboplast Time 30.4 CBC/BMP Laboratory Tests 01/04/21 06:10 Microbiology Microbiology 12/26/20 Urine Culture - Final, Complete Pseudomonas Aeruginosa 12/25/20 Blood Culture - Final, Complete NO GROWTH AFTER 5 DAYS 12/25/20 Blood Culture - Final, Complete Staphylococcus Haemolyticus Staphylococcus Epidermidis ASHLY MARTINEZ D.O. Jan 04, 2021 13:20 JOSHUA KNIGHT MD Jan 05, 2021 07:36
[2021-01-04 14:00] VITALS: BP 123/52
[2021-01-04 18:00] VITALS: BP 121/53
[2021-01-04] MEDS: HEPARIN SOD (PORCINE) 5000UNITS/ML 1ML VIAL/SYRINGE IV PRN (19:53)
[2021-01-04] MEDS: SIMVASTATIN 20 MG TAB NG SCH (20:16)
[2021-01-04] MEDS: LEVEMIR (INSULIN DETEMIR) 1 UNITS/0.01ML SC SCH (20:17)
[2021-01-04 22:00] VITALS: BP 118/58
[2021-01-05] MEDS: HumaLOG INSULIN (NovoLOG) PER UNIT SC SCH ×6 (00:06→23:59)
[2021-01-05 02:00] VITALS: BP 116/56
[2021-01-05] MEDS: PANTOPRAZOLE 40MG VIAL (C9113 PER 1) IV SCH ×2 (02:11→15:00)
[2021-01-05 02:24] LABS: INR 1.12; PROTHROMBIN TIME 14.6 SECONDS (12.5-14.3)
[2021-01-05 02:26] LABS: PARTIAL THROMBOPLASTIN TIME 104.5 SECONDS (24.2-38.5)
[2021-01-05] MEDS: SLF 3 ML SYR IV SCH ×3 (05:41→21:08)
[2021-01-05 06:00] VITALS: BP 134/61
[2021-01-05 08:14] LABS: BASO % 0.2 % (0.0-1.0); EOS % 0.3 % (0.0-3.0); HEMATOCRIT 26.9 % (36.0-47.0); HEMOGLOBIN 8.4 g/dl (12.0-15.5); LYMPH # 1.3 10^3/uL (1.5-5.0); LYMPH % 14.3 % (24.0-44.0); MEAN CORPUSCULAR HEMOGLOBIN 29.7 pg (27.0-33.0); MEAN CORPUSCULAR HGB CONC 31.2 g/dl (32.0-36.5); MEAN CORPUSCULAR VOLUME 95.1 fl (80.0-96.0); MONO # 0.6 10^3/uL (0.0-0.8); MONO % 6.8 % (2.0-8.0); NEUTROPHILS % 77.8 % (36.0-66.0); PLATELET COUNT, AUTOMATED 195 10^3/uL (150-450); RED BLOOD COUNT 2.83 10^6/uL (4.00-5.40)
[2021-01-05 08:34] LABS: INR 1.06
[2021-01-05 08:35] LABS: BLOOD UREA NITROGEN 35 MG/DL (7-18); CALCIUM LEVEL 7.9 MG/DL (8.8-10.2); CARBON DIOXIDE LEVEL 29 MEQ/L (21-32); CHLORIDE LEVEL 105 MEQ/L (98-107); CREATININE FOR GFR 1.08 MG/DL (0.55-1.30); GLOMERULAR FILTRATION RATE 52.5 (>39); GLUCOSE, FASTING 192 MG/DL (70-100); MAGNESIUM LEVEL 1.9 MG/DL (1.8-2.4); PARTIAL THROMBOPLASTIN TIME 73.8 SECONDS (24.2-38.5); POTASSIUM SERUM 3.9 MEQ/L (3.5-5.1); SODIUM LEVEL 133 MEQ/L (136-145)
[2021-01-05] MEDS: ASPIRIN 81 MG CHEW TABLET NG SCH (09:54)
[2021-01-05] MEDS: FUROSEMIDE 40MG/4ML VIAL (J1940) IV SCH (09:55)
[2021-01-05] MEDS: SANTYL OINT 30GM TOP SCH (09:56)
[2021-01-05 10:00] VITALS: BP 128/53
--- NOTE | 2021-01-05 12:06 | IPNPDOC ---
Date Seen The patient was seen on 01/05/21. Progress Note SUBJECTIVE: Bel was seen and examined this morning by the hospital service while lying upright in bed. She reports the increased work of breathing she was experiencing over the previous 2 days has mostly resolved. She continues to have an intermittent productive cough of yellow sputum. She continues to tolerate her NG tube feedings with no significant issues. She continues to use bedpan for incontinent BM/voids. She denies any current or overnight fever, chills, night sweats, chest pain, chest pressure, palpitations, nausea, abdominal pain, vomiting, or dysuria. OBJECTIVE PHYSICAL EXAMINATION: VITAL SIGNS: Please see below. GENERAL: Pleasant elderly female sitting in bedside chair. NG tube remains in place. No acute distress. HEENT: Normocephalic, atraumatic. NG tube remains in place through right nare. Noninjected, anicteric sclera. Oral cavity: Mildly dry mucous membranes. Neck: Some mild JVD this morning. No lymphadenopathy appreciated. Trachea midline. CARDIOVASCULAR: Regular rate, regular rhythm. Normal S1, S2. No distinct significant murmurs or rubs appreciated. RESPIRATORY: Diffuse mild to moderate crackles remain present. Decreased tidal volume with diminished breath sounds but symmetric chest expansion. She continues to breathe room air and is speaking full sentences. No accessory muscle use. (Of note, auscultation occurred anteriorly and laterally due to patient's weakness). ABDOMINAL: Bandages remain in place over the right flank and right lower abdominal quadrant. Normoactive bowel sounds throughout. Nondistended. Mild tenderness of epigastrium and right upper quadrant. No rigidity appreciated. Umbilical hernia present. EXTREMITIES: There are bandages in place over the right heel, right lateral knee, and left lateral knee. There are offloading heel boots on both feet. 2+ radial pulses bilaterally. 1+ bilateral lower extremity pitting edema, right greater than left. NEUROLOGICAL: No gross focal neurologic deficits appreciated. Nondysarthric speech. PSYCHOLOGICAL: Mood and affect appear appropriate. LABORATORY DATA, IMAGING STUDIES, MICROBIOLOGY: Please see below. ASSESSMENT AND PLAN: This is a 75-year-old female with history of hormone receptor positive right breast invasive ductal carcinoma (initially diagnosed 2002) with mets to lungs and pleura (right greater than left) s/p chemo, radiation, and lumpectomy currently on hormone therapy with recurrent right-sided malignant pleural effusions and right Pleurx catheter, CKD 3, HTN, chronic anemia, DM, diastolic CHF with multiple recent admissions, who was initially brought in 12/25/2020 after pt's sap bpc developer could not take patient and subsequently called EMS. Upon ED presentation, patient had acute renal failure superimposed on CKD with hypernatremia and hyperglycemia. Patient was also found to have an asymptomatic Pseudomonas UTI for which she has completed 5 days of antibiotics. Her electrolyte issues and JUAN subsequently resolved. Sugars were better controlled with long-acting insulin dose doubled. At this point, barriers to discharge are repeated failure of swallow study with a pending PEG tube placement and continued diuresis. Patient will require subacute rehab upon discharge. #Nutritional concerns in the setting of repeated failed swallow studies, pending PEG tube placement -A repeat swallow study was ordered and speech therapy performed a fiberoptic endoscopic evaluation of swallowing test on 01/03 (FEES), that unfortunately patient failed. -NG tube was placed after initial swallow failure but she will now require long-term nutrition via a PEG tube. Both the patient and patient's daughter understand the need for a feeding tube at this point and are agreeable for placement. -General surgery has been consulted and is planning PEG tube placement for next week (likely Thursday, 01/08). -Home Xarelto held on 01/03 with heparin drip started in setting of upcoming PEG tube placement; drip will be stopped 6 hours in advance of PEG surgery time. Continue to monitor PTT and for bleeding. -Home ASA held today in preparation for PEG tube placement next week. -Continue with NG tube Jevity feeds pending PEG placement. -Continue with aspiration precautions #Moderate fluid overload in setting of history of heart failure with preserved ejection fraction, improved -Likely secondary to the D5 half-normal saline fluids i/s/o hypernatremia, as well as continued Jevity feeds -Patient had her second consecutive day of net negative day I and O (- 875 cc) -Lasix dose was switched from 20 to 40 mg IV daily on 01/03. -We will keep IV furosemide for today (01/05), with switch to 40 mg oral formulation via NG tube on 01/06 -Continue to monitor weights, urine output/intake and output #Multiple skin wounds with current chemical debridement and pending surgical debridement -Telemedicine visit with wound care (Dr. Looney) on 01/02 resulted in subsequent consults of podiatry and plastic surgery to deal with right heel/hip/knee wounds -Plastic surgery has started the patient on collagenase for chemical debridement in preparation of eventual surgical debridement of eschar. Per plastic surgery, there are "no signs of infection" of right thigh/hip/knee wound s. -Podiatry evaluated the patient and does not feel debridement is warranted at this time. Continue with strict offloading of right heel with heel boots -Hospitalist services greatly appreciative of insights and continued care from both podiatry and plastic surgery -Summary of Dr. Looney's recommendations: Foam dressing for all wounds, Betadine for right heel wound and offloading boot, prophylactic boot for left heel #Asymptomatic Pseudomonas urinary tract infection, resolved -Patient was found to have Pseudomonas on urine culture and was treated with 5 days of levofloxacin. -01/03 was the fifth and final day of dosing. Patient is no longer on antibiotics at this time. -At no point during admission has patient had leukocytosis. She has remained afebrile as well. #Hyperglycemia, significantly improved and stable -This was most likely the result of receiving D5 half-normal saline along with concurrent Jevity feeds. D5 half-normal saline was stopped earlier this week with resolution of hypernatremia. -On 01/02, long-acting insulin dose was increased from 10 units to 20 units daily. -Sugars up slightly this morning to 192, but greatly improved from earlier in admission; ji third consecutive day of relatively well-controlled sugars -Continue with the short acting insulin sliding scale and 20 units of long- acting daily. -Patient remains on Jevity feeds via NG tube pending PEG placement. #Mild hyponatremia -Serum sodium 133 this morning with a serum glucose of 192; corrected serum sodium is 134 -Patient actually was hypernatremic for the first few days of admission and is s/p D5 1/2NS administration last week -We will continue to monitor on repeat metabolic panels. #S/p hypernatremia -Patient was hypernatremic upon presentation and received D5 half-normal saline -Serum sodium returned to normal limits earlier this week and D5 half-normal saline was subsequently stopped. #Positive blood culture, likely a result of contamination -This was likely a contaminant, as repeat cultures were negative and only 1 of 2 initial sample were positive. -Vancomycin was started after initial positive, but subsequently stopped. #Chronic kidney disease stage III, stable -Patient presented with acute renal failure that was likely secondary to prerenal etiology associated with recent poor oral intake prior to admission -Since 12/31, serum creatinine has remained around her baseline of 1 -Of note, her diuretics dose was increased to 40 mg IV daily on 01/03; will switch over to 40 mg oral formulation via NG tube on 01/06 -Continue to monitor on repeat metabolic panel #Chronic anemia, stable -Type and screen has been ordered should transfusion be warranted -Home rivaroxaban stopped in preparation for upcoming PEG tube placement; heparin drip started on 01/04 #Dyslipidemia -Continue with home simvastatin #History of asthma -Continue with the incentive spirometry at bedside -Patient does not currently take any medications related to her asthma -We will continue to monitor patient's respiratory status; she continues to breathe room air and saturate well. #History of hypertension -Home antihypertensives held initially due to acute renal failure; JUAN has resolved but pressures have remained well controlled off antihypertensives -Of note, is currently receiving 40 mg IV furosemide; will switch to 40 oral via NG tube on 01/06 -Will continue to monitor #Social concerns -Upon evaluation by therapy service, patient will require subacute rehab upon discharge #DVT prophylaxis: Heparin drip started (01/04) in prep for upcoming PEG; home rivaroxaban stopped on 01/04 CODE STATUS: Full code Disposition: Pending PEG tube placement after multiple failed swallow studies; will require subacute rehab upon discharge GME ATTESTATION My faculty preceptor for this patient encounter was physically present during the encounter and was fully available. All aspects of the patient interview, examination, medical decision making process, and medical care plan development were reviewed and approved by the faculty preceptor. The faculty preceptor is aware and concurs with the plan as stated in the body of this note and will attest to such by his/her cosignature. ATTENDING NOTE I personally examined the patient and discussed the findings and management with the resident physician as noted above. VS, I&O, 24H, Fishbone Vital Signs/I&O Vital Signs Date Time Temp Pulse Resp B/P (MAP) Pulse Ox O2 Delivery O2 Flow Rate FiO2 01/05/21 10:00 98.4 77 20 128/53 (78) 97 Room Air I&O- Last 24 Hours up to 6 AM 01/05/21 06:00 Intake Total 450 ml Output Total 950 ml Balance -500 ml Laboratory Data 24H LABS Laboratory Tests 2 01/04/21 12:30: Prothrombin Time 13.2, Prothromb Time International Ratio 0.98, Activated Partial Thromboplast Time 30.4 01/04/21 16:37: Bedside Glucose (Misc Panel) 281H 01/04/21 18:49: Activated Partial Thromboplast Time 56.9H 01/04/21 20:03: Bedside Glucose (Misc Panel) 264H 01/04/21 23:53: Bedside Glucose (Misc Panel) 231H 01/05/21 01:59: Prothrombin Time 14.6H, Prothromb Time International Ratio 1.12, Activated Partial Thromboplast Time 104.5H 01/05/21 03:51: Bedside Glucose (Misc Panel) 177H 01/05/21 07:52: Prothrombin Time 14.0, Prothromb Time International Ratio 1.06, Activated Partial Thromboplast Time 73.8H, Immature Granulocyte % (Auto) 0.6, Neutrophils (%) (Auto) 77.8H, Lymphocytes (%) (Auto) 14.3L, Monocytes (%) (Auto) 6.8, Eosinophils (%) (Auto) 0.3, Basophils (%) (Auto) 0.2, Neutrophils # (Auto) 7.0, Lymphocytes # (Auto) 1.3L, Monocytes # (Auto) 0.6, Eosinophils # (Auto) 0.0, Basophils # (Auto) 0.0, Nucleated Red Blood Cells % (auto) 0.0, Anion Gap , Glomerular Filtration Rate 52.5, Calcium Level 7.9L, Magnesium Level 1.9 01/05/21 08:12: Bedside Glucose (Misc Panel) 182H 01/05/21 11:44: Bedside Glucose (Misc Panel) 205H CBC/BMP Laboratory Tests 01/05/21 07:52 Microbiology Microbiology 01/05/21 Stool Occult Blood (BAO) - Final, Complete 01/04/21 Stool Occult Blood (BAO) - Final, Complete 12/26/20 Urine Culture - Final, Complete Pseudomonas Aeruginosa ASHLY MARTINEZ D.O. Jan 05, 2021 12:06 JOSHUA KNIGHT MD Jan 05, 2021 15:42
[2021-01-05 14:00] VITALS: BP 118/44
[2021-01-05] MEDS: LEVEMIR (INSULIN DETEMIR) 1 UNITS/0.01ML SC SCH (20:56)
[2021-01-05] MEDS: SIMVASTATIN 20 MG TAB NG SCH (20:57)
[2021-01-05 22:00] VITALS: BP 117/44
[2021-01-06] MEDS: PANTOPRAZOLE 40MG VIAL (C9113 PER 1) IV SCH ×2 (03:19→15:32)
[2021-01-06] MEDS: HEPARIN DRIP 25,000 UNITS in IV 1 EA IV SCH ×2 (03:21→22:59)
[2021-01-06] MEDS: SLF 3 ML SYR IV SCH ×3 (05:55→21:00)
[2021-01-06] MEDS: HumaLOG INSULIN (NovoLOG) PER UNIT SC SCH ×4 (05:55→23:53)
[2021-01-06 06:00] VITALS: BP 122/47
[2021-01-06 06:08] LABS: BASO % 0.3 % (0.0-1.0); EOS % 0.3 % (0.0-3.0); HEMATOCRIT 26.4 % (36.0-47.0); HEMOGLOBIN 8.4 g/dl (12.0-15.5); LYMPH # 1.1 10^3/uL (1.5-5.0); MEAN CORPUSCULAR HEMOGLOBIN 30.5 pg (27.0-33.0); MEAN CORPUSCULAR HGB CONC 31.8 g/dl (32.0-36.5); MONO # 0.5 10^3/uL (0.0-0.8); MONO % 6.5 % (2.0-8.0); NEUTROPHILS # 5.8 10^3/uL (1.5-8.5); PLATELET COUNT, AUTOMATED 211 10^3/uL (150-450); RED BLOOD COUNT 2.75 10^6/uL (4.00-5.40); WHITE BLOOD COUNT 7.5 10^3/uL (4.0-10.0)
[2021-01-06 06:33] LABS: CALCIUM LEVEL 7.8 MG/DL (8.8-10.2); CREATININE FOR GFR 1.12 MG/DL (0.55-1.30); GLOMERULAR FILTRATION RATE 50.4 (>39); MAGNESIUM LEVEL 1.9 MG/DL (1.8-2.4); POTASSIUM SERUM 3.7 MEQ/L (3.5-5.1)
[2021-01-06] MEDS: FUROSEMIDE 40 MG TAB NG SCH (09:00)
[2021-01-06] MEDS: SANTYL OINT 30GM TOP SCH (10:19)
--- NOTE | 2021-01-06 11:45 | IPNPDOC ---
Text Note Date of Service The patient was seen on 01/06/21. NOTE SUBJECTIVE: -No acute events -No SOB, CP, palpitations, conversational, aware that she will getting PEG placed likely on Thursday PHYSICAL EXAMINATION: VITAL SIGNS: see below GENERAL APPEARANCE: Awake, alert, NAD HEENT: Atraumatic, normocephalic. Eyes are anicteric. Mucous membranes are dry. CARDIOVASCULAR: NSR, regular rhythm, 3/6 holosystolic murmur at LUSB LUNGS: CTAB, poor respiratory effort ABDOMEN: Normoactive sounds, soft, nondistended. EXTREMITIES: 1+ BLE extremity edema, heels in boots, wounds with c/d/i bandaging NEUROLOGICAL: Clear speech, awake , alert, AOx3 LABORATORY DATA: WBC 7.6 Hgb 8.4 platelets 211 Na 135 K 3.7 Cr 1.12 Mag 1.9 IMAGING: No new MICROBIOLOGY: UCx with pseudomonas ASSESSMENT: 75 y/o W with a history of invasive ductal carcinoma of the right breast, metastatic to lungs and pleura bilaterally R> L, hormone receptor positive first diagnosed in 2002 s/p lumpectomy, chemo and radiotherapy on hormone therapy, recurrent right sided malignant pleural effusion with Right Pleurx catheter, chronic anemia, CKD3, DM, HTN, diastolic CHF with multiple recent readmissions who was brought in after a fall and found to be hyperglycemic, hyponatremic, with an JUAN on CKD, now with ongoing discussions about safe discharge planning. PLAN: # Hypovolmeic hypernatremia: resolved with hydration - BMP QAM - pending PEG for repeat failed swallow evaluation with edema and persistent aspiration, has NGT with jevity - with 250cc free water Q6H to tube feeding plan # Metabolic encephalopathy: resolved Multifactorial metabolic encephalopathy that has resolve., and had been in the setting of JUAN (resolved), Hypernatremia (resolved), and Hyperglycemia (resolved). Patient did have positive peripheral blood culture x1, which has now been shown to be a contaminant and she continues to remain negative for SIRS criteria. UCx was positive for pseudomonas sensitive to Levaquin. -s/p 7d of Levaquin - fall risk - NPO status after failed swallow eval, has NGT with jevity, pending PEG # Pseudomonas UTI: -Patient continues to be asymptomatic and has baseline mentation. -s/p 7d of levaquin # Aspiration: Patient has failed BASKET SORTER bedside swallow eval x3 with FEES showing dysfuntion and some edema, s/p NGT on jevity. -FSBG Q6H -Pending PEG # CKD III with acute kidney injury: resolved -s/p hydration -Renal function now at baseline - BMP qAM # Positive blood culture: Contaminate. Have stopped vanco. # IDDM: HA1c 11 on 12/25/2020, Patient is on ISS and QAM and QHS long acting insulin at home. Hyperglycemia has resolved - FSBG Q6H - ISS - Levemir QHS -On jevity feeds via NGT # Multiple comorbidities: -Prior attending had several conversations now with patient and her daughter who is now her POA. Patient continues to express desire to be full code. Will make further determinations about nutrition source pending repeat swallow eval, for now with NGT and jevity. -POA and patient expressed understanding that home discharge would be unsafe at this time. -PFS consulted for safe discharge planning -PT/OT # Chronic HFpEF: -Closely monitoring fluid status in setting of volume repletion. -Holding BP meds -Now on lasix 40mg PO daily # Chronic anemia: - daily CBCs, stable #Hx DVTs: - Holding eliquis, pending PEG placement, now therapeutic on heparin gtt # HLD -continue meds # Depression -conitnue meds # HTN -holding meds # Asthma Not currently taking medications, continue to monitor - IS at bedside #Chronic wounds: -LE wounds, seen by podiatry to continue dressings and boots -Was seen by plastics per Dr. Looney recommendation and plan is chemical debridement followed by surgical debridement, see Dr. Mcintyre's note -Dr. Looney was consulted and recommended podiatry and plastics consults. Dispo: Med Surg floor with likely d/c to rehab or terminal block assembler care facility pending PFS and family planning Code: Full Code Diet: NPO, NGT on jevity DVT Prophy: heparin gtt Consults: PT/OT, BASKET SORTER, SW, general surgery, podiatry VS,Fishbone, I+O VS, Fishbone, I+O Laboratory Tests 01/06/21 05:27 Vital Signs Date Time Temp Pulse Resp B/P (MAP) Pulse Ox O2 Delivery O2 Flow Rate FiO2 01/06/21 06:00 97.4 74 19 122/47 (90) 97 Nasal Cannula I&O- Last 24 Hours up to 6 AM 01/06/21 06:00 Intake Total 0 ml Output Total 450 ml Balance -450 ml JOSHUA KNIGHT MD Jan 06, 2021 08:13
[2021-01-06 14:00] VITALS: BP 133/55
[2021-01-06 19:07] VITALS: BP 146/73
[2021-01-06] MEDS: LEVEMIR (INSULIN DETEMIR) 1 UNITS/0.01ML SC SCH (20:56)
[2021-01-06] MEDS: SIMVASTATIN 20 MG TAB NG SCH (20:56)
[2021-01-06 22:00] VITALS: BP 124/60
[2021-01-07] MEDS: PANTOPRAZOLE 40MG VIAL (C9113 PER 1) IV SCH ×2 (02:50→15:15)
[2021-01-07 06:00] VITALS: BP 122/60
[2021-01-07] MEDS: SLF 3 ML SYR IV SCH ×2 (06:14→15:13)
[2021-01-07] MEDS: HumaLOG INSULIN (NovoLOG) PER UNIT SC SCH ×3 (06:15→18:29)
[2021-01-07 06:37] LABS: INR 1.05; PROTHROMBIN TIME 13.9 SECONDS (12.5-14.3)
[2021-01-07 06:38] LABS: PARTIAL THROMBOPLASTIN TIME 62.1 SECONDS (24.2-38.5)
[2021-01-07] MEDS: HEPARIN SOD (PORCINE) 5000UNITS/ML 1ML VIAL/SYRINGE IV PRN (06:56)
[2021-01-07 07:54] LABS: HEMATOCRIT 26.5 % (36.0-47.0); HEMOGLOBIN 8.4 g/dl (12.0-15.5); MEAN CORPUSCULAR HEMOGLOBIN 30.2 pg (27.0-33.0); MEAN CORPUSCULAR HGB CONC 31.7 g/dl (32.0-36.5); MEAN CORPUSCULAR VOLUME 95.3 fl (80.0-96.0); PLATELET COUNT, AUTOMATED 219 10^3/uL (150-450); RED BLOOD COUNT 2.78 10^6/uL (4.00-5.40); WHITE BLOOD COUNT 7.2 10^3/uL (4.0-10.0)
[2021-01-07 07:58] LABS: CALCIUM LEVEL 7.7 MG/DL (8.8-10.2); GLOMERULAR FILTRATION RATE 57.4 (>39); POTASSIUM SERUM 3.6 MEQ/L (3.5-5.1)
[2021-01-07] MEDS: SANTYL OINT 30GM TOP SCH (09:42)
[2021-01-07] MEDS: FUROSEMIDE 40 MG TAB NG SCH (09:42)
[2021-01-07 12:55] LABS: PROTHROMBIN TIME 13.4 SECONDS (12.5-14.3)
[2021-01-07 12:57] LABS: PARTIAL THROMBOPLASTIN TIME 80.3 SECONDS (24.2-38.5)
--- NOTE | 2021-01-07 13:20 | IPNPDOC ---
Text Note Date of Service The patient was seen on 01/07/21. NOTE SUBJECTIVE: -No acute events -Denies SOB, CP, palpitations. PHYSICAL EXAMINATION: VITAL SIGNS: see below GENERAL APPEARANCE: Awake, alert, NAD HEENT: Atraumatic, normocephalic. Eyes are anicteric. Mucous membranes are dry. CARDIOVASCULAR: NSR, regular rhythm, 3/6 holosystolic murmur at LUSB LUNGS: CTAB, poor respiratory effort ABDOMEN: Normoactive sounds, soft, nondistended. EXTREMITIES: 1+ BLE extremity edema, heels in boots, wounds with c/d/i bandaging NEUROLOGICAL: Clear speech, awake , alert, AOx3 LABORATORY DATA: pending AM labs IMAGING: No new MICROBIOLOGY: UCx with pseudomonas ASSESSMENT: 75 y/o W with a history of invasive ductal carcinoma of the right breast, metastatic to lungs and pleura bilaterally R> L, hormone receptor positive first diagnosed in 2002 s/p lumpectomy, chemo and radiotherapy on hormone therapy, recurrent right sided malignant pleural effusion with Right Pleurx catheter, chronic anemia, CKD3, DM, HTN, diastolic CHF with multiple recent readmissions who was brought in after a fall and found to be hyperglycemic, hyponatremic, with an JUAN on CKD, now with ongoing discussions about safe discharge planning. PLAN: # Hypovolmeic hypernatremia: resolved with hydration - BMP QAM - pending PEG for repeat failed swallow evaluation with edema and persistent aspiration, has NGT with jevity - with 250cc free water Q6H to tube feeding plan # Metabolic encephalopathy: resolved Multifactorial metabolic encephalopathy that has resolve., and had been in the setting of JUAN (resolved), Hypernatremia (resolved), and Hyperglycemia (resolved). Patient did have positive peripheral blood culture x1, which has now been shown to be a contaminant and she continues to remain negative for SIRS criteria. UCx was positive for pseudomonas sensitive to Levaquin. -s/p 7d of Levaquin - fall risk - NPO status after failed swallow eval, has NGT with jevity, pending PEG # Pseudomonas UTI: -Patient continues to be asymptomatic and has baseline mentation. -s/p 7d of levaquin # Aspiration: Patient has failed GRIZZLYMAN bedside swallow eval x3 with FEES showing dysfuntion and some edema, s/p NGT on jevity. -FSBG Q6H -Pending PEG # CKD III with acute kidney injury: resolved -s/p hydration -Renal function now at baseline - BMP qAM # Positive blood culture: Contaminate. Have stopped vanco. # IDDM: HA1c 11 on 12/25/2020, Patient is on ISS and QAM and QHS long acting insulin at home. Hyperglycemia has resolved - FSBG Q6H - ISS - increased Levemir QHS to 20u for persistent hyperglycemia -On jevity feeds via NGT # Multiple comorbidities: -Prior attending had several conversations now with patient and her daughter who is now her POA. Patient continues to express desire to be full code. Will make further determinations about nutrition source pending repeat swallow eval, for now with NGT and jevity. -POA and patient expressed understanding that home discharge would be unsafe at this time. -PFS consulted for safe discharge planning -PT/OT # Chronic HFpEF: -Closely monitoring fluid status in setting of volume repletion. -Holding BP meds and normotensive -lasix 40mg PO daily # Chronic anemia: - daily CBCs, stable #Hx DVTs: - Holding eliquis, pending PEG placement, now therapeutic on heparin gtt # HLD -continue meds # Depression -conitnue meds # HTN -holding meds # Asthma Not currently taking medications, continue to monitor - IS at bedside #Chronic wounds: -LE wounds, seen by podiatry to continue dressings and boots -Was seen by plastics per Dr. Looney recommendation and plan is chemical debridement followed by surgical debridement, see Dr. Mcintyre's note -Dr. Looney was consulted and recommended podiatry and plastics consults. Dispo: Med Surg floor with likely d/c to rehab or correction care facility pending PFS and family planning Code: Full Code Diet: NPO, NGT on jevity DVT Prophy: heparin gtt Consults: PT/OT, GRIZZLYMAN, SW, general surgery, podiatry VS,Rylie, I+O VS, Fishbone, I+O Vital Signs Date Time Temp Pulse Resp B/P (MAP) Pulse Ox O2 Delivery O2 Flow Rate FiO2 01/06/21 22:00 98.1 73 20 124/60 (81) 93 Room Air I&O- Last 24 Hours up to 6 AM 01/07/21 05:59 Intake Total 2270 ml Output Total 1175 ml Balance 1095 ml JOSHUA KNIGHT MD Jan 07, 2021 07:39
[2021-01-07 14:00] VITALS: BP 127/57
[2021-01-07 18:44] LABS: INR 0.99; PROTHROMBIN TIME 13.3 SECONDS (12.5-14.3)
[2021-01-07 18:46] LABS: PARTIAL THROMBOPLASTIN TIME 73.6 SECONDS (24.2-38.5)
[2021-01-07 22:00] VITALS: BP 128/59
[2021-01-08] VITALS (15 sets, daily range): BP systolic 122–169; BP diastolic 58–81
[2021-01-08] MEDS: SIMVASTATIN 20 MG TAB NG SCH ×2 (01:13→23:44)
[2021-01-08] MEDS: SLF 3 ML SYR IV SCH ×4 (01:14→23:44)
[2021-01-08] MEDS: LEVEMIR (INSULIN DETEMIR) 1 UNITS/0.01ML SC SCH ×2 (01:14→23:11)
[2021-01-08] MEDS: PANTOPRAZOLE 40MG VIAL (C9113 PER 1) IV SCH ×2 (02:02→15:00)
[2021-01-08] MEDS: NS 1,000 ML IV SCH ×4 (03:45→23:49)
[2021-01-08] MEDS: HumaLOG INSULIN (NovoLOG) PER UNIT SC SCH ×5 (06:00→23:10)
[2021-01-08 06:21] LABS: HEMATOCRIT 24.5 % (36.0-47.0); HEMOGLOBIN 7.6 g/dl (12.0-15.5); MEAN CORPUSCULAR HEMOGLOBIN 29.8 pg (27.0-33.0); MEAN CORPUSCULAR VOLUME 96.1 fl (80.0-96.0); PLATELET COUNT, AUTOMATED 222 10^3/uL (150-450); RED BLOOD COUNT 2.55 10^6/uL (4.00-5.40); WHITE BLOOD COUNT 5.3 10^3/uL (4.0-10.0)
[2021-01-08 06:30] LABS: PROTHROMBIN TIME 13.4 SECONDS (12.5-14.3)
[2021-01-08 06:31] LABS: PARTIAL THROMBOPLASTIN TIME 32.6 SECONDS (24.2-38.5)
[2021-01-08 06:43] LABS: CALCIUM LEVEL 7.5 MG/DL (8.8-10.2); CREATININE FOR GFR 1.1 MG/DL (0.55-1.30); GLOMERULAR FILTRATION RATE 51.4 (>39); POTASSIUM SERUM 3.7 MEQ/L (3.5-5.1)
[2021-01-08] MEDS: FUROSEMIDE 40 MG TAB NG SCH (09:31)
[2021-01-08] MEDS: SANTYL OINT 30GM TOP SCH (09:32)
--- NOTE | 2021-01-08 11:50 | IPNPDOC ---
Text Note Date of Service The patient was seen on 01/08/21. NOTE SUBJECTIVE: -No acute events -Denies SOB, CP, palpitations. PHYSICAL EXAMINATION: VITAL SIGNS: see below GENERAL APPEARANCE: Awake, alert, NAD HEENT: Atraumatic, normocephalic. Eyes are anicteric. Mucous membranes are dry. CARDIOVASCULAR: NSR, regular rhythm, 3/6 holosystolic murmur at LUSB LUNGS: CTAB, poor respiratory effort ABDOMEN: Normoactive sounds, soft, nondistended. EXTREMITIES: 1+ BLE extremity edema, heels in boots, wounds with c/d/i bandaging NEUROLOGICAL: Clear speech, awake , alert, AOx3 LABORATORY DATA: WBC 5.3 Hgb 7.6 (transfusing 2 units) platelets 222 Na 138 K 3.7 Cr 1.1 IMAGING: No new MICROBIOLOGY: UCx with pseudomonas ASSESSMENT: 75 y/o W with a history of invasive ductal carcinoma of the right breast, metastatic to lungs and pleura bilaterally R> L, hormone receptor positive first diagnosed in 2002 s/p lumpectomy, chemo and radiotherapy on hormone therapy, recurrent right sided malignant pleural effusion with Right Pleurx catheter, chr onic anemia, CKD3, DM, HTN, diastolic CHF with multiple recent readmissions who was brought in after a fall and found to be hyperglycemic, hyponatremic, with an JUAN on CKD, now pending a PEG tube for nutrition . PLAN: # Hypovolmeic hypernatremia: resolved with hydration - BMP QAM - pending PEG this afternoon for repeat failed swallow evaluation with edema and persistent aspiration, NGT feeds held - with 250cc free water Q6H to tube feeding plan # Metabolic encephalopathy: resolved Multifactorial metabolic encephalopathy that has resolve., and had been in the setting of JUAN (resolved), Hypernatremia (resolved), and Hyperglycemia (resolved). Patient did have positive peripheral blood culture x1, which has now been shown to be a contaminant and she continues to remain negative for SIRS cr iteria. UCx was positive for pseudomonas sensitive to Levaquin. -s/p 7d of Levaquin - fall risk - NPO status after failed swallow eval, pending PEG today with Dr. Holder # Pseudomonas UTI: -Patient continues to be asymptomatic and has baseline mentation. -s/p 7d of levaquin # Aspiration: Patient has failed SHOE LASTER bedside swallow eval x3 with FEES showing dysfuntion and some edema, s/p NGT on jevity. -FSBG Q6H -Pending PEG today # CKD III with acute kidney injury: resolved -s/p hydration -Renal function now at baseline - BMP qAM # Positive blood culture: Contaminate. Have stopped vanco. # IDDM: HA1c 11 on 12/25/2020, Patient is on ISS and QAM and QHS long acting insulin at home. Hyperglycemia has resolved - FSBG Q6H - ISS - increased Levemir QHS to 20u for persistent hyperglycemia -On jevity feeds via NGT # Multiple comorbidities: -Prior attending had several conversations now with patient and her daughter who is now her POA. Patient continues to express desire to be full code. Will make further determinations about nutrition source pending repeat swallow eval, for now with NGT and jevity. -POA and patient expressed understanding that home discharge would be unsafe at this time. -PFS consulted for safe discharge planning -PT/OT # Chronic HFpEF: -Closely monitoring fluid status in setting of volume repletion. 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 Looney recommendation and plan is chemical debridement followed by surgical debridement, see Dr. Mcintyre's note -Dr. Looney was consulted and recommended podiatry and plastics consults. Dispo: Med Surg floor with likely d/c to rehab or nursing home care facility Code: Full Code Diet: NPO DVT Prophy: heparin gtt held for PEG tube placement Consults: PT/OT, SHOE LASTER, SW, general surgery, podiatry VS,Fishbone, I+O VS, Fishbone, I+O Laboratory Tests 01/08/21 06:08 Vital Signs Date Time Temp Pulse Resp B/P (MAP) Pulse Ox O2 Delivery O2 Flow Rate FiO2 01/08/21 06:00 98.2 69 18 122/60 (80) 96 Room Air I&O- Last 24 Hours up to 6 AM 01/08/21 06:00 Intake Total 1171 ml Output Total 575 ml Balance 596 ml JOSHUA KNIGHT MD Jan 08, 2021 08:23
[2021-01-08] MEDS ORDERED: MIDAZOLAM INJ 2MG/2ML VIAL (J2250 PER 1MG) As Ordered ONE (14:31)
[2021-01-08] MEDS ORDERED: fentaNYL 100 MCG/2 ML INJECTION (J3010) As Ordered ONE (14:32)
[2021-01-08] MEDS ORDERED: propofoL 200 MG/20 ML VIAL As Ordered ONE (14:33)
[2021-01-08] MEDS ORDERED: LR 1,000 ML IV SCH (15:35)
[2021-01-08] MEDS ORDERED: fentaNYL 100 MCG/2 ML INJECTION (J3010) IV PRN (15:35)
[2021-01-08] MEDS ORDERED: METOCLOPRAMIDE INJ 10MG/2ML VIAL (J2765 PER 1) IV PRN (15:35)
[2021-01-08] MEDS ORDERED: ONDANSETRON 4MG/2ML VIAL IV PRN (15:35)
[2021-01-08] MEDS ORDERED: LEVEMIR (INSULIN DETEMIR) 1 UNITS/0.01ML SC ONE (23:15)
[2021-01-08] MEDS: ACETAMINOPHEN TAB 650MG DOSE (2X325MG) PO PRN (23:46)
[2021-01-09] MEDS: PANTOPRAZOLE 40MG VIAL (C9113 PER 1) IV SCH (03:22)
[2021-01-09] MEDS: SLF 3 ML SYR IV SCH ×3 (05:47→21:36)
[2021-01-09] MEDS: HumaLOG INSULIN (NovoLOG) PER UNIT SC SCH ×4 (05:47→23:58)
[2021-01-09 06:00] VITALS: BP 162/74
[2021-01-09 06:27] LABS: HEMATOCRIT 34.2 % (36.0-47.0); MEAN CORPUSCULAR HEMOGLOBIN 29.6 pg (27.0-33.0); MEAN CORPUSCULAR HGB CONC 32.2 g/dl (32.0-36.5); MEAN CORPUSCULAR VOLUME 91.9 fl (80.0-96.0); PLATELET COUNT, AUTOMATED 221 10^3/uL (150-450); RED BLOOD COUNT 3.72 10^6/uL (4.00-5.40); WHITE BLOOD COUNT 8.3 10^3/uL (4.0-10.0)
[2021-01-09 06:31] LABS: BLOOD UREA NITROGEN 19 MG/DL (7-18); CALCIUM LEVEL 8.1 MG/DL (8.8-10.2); CARBON DIOXIDE LEVEL 30 MEQ/L (21-32); CHLORIDE LEVEL 109 MEQ/L (98-107); CREATININE FOR GFR 0.84 MG/DL (0.55-1.30); GLOMERULAR FILTRATION RATE > 60.0 (>39); GLUCOSE, FASTING 65 MG/DL (70-100); POTASSIUM SERUM 3.4 MEQ/L (3.5-5.1); SODIUM LEVEL 144 MEQ/L (136-145)
--- NOTE | 2021-01-09 09:03 | IPNPDOC ---
Text Note Date of Service The patient was seen on 01/09/21. NOTE General surgery. Dr. Holder The patient is a 75-year-old female status post G-tube placement as per Dr. oHlder 01/08/2021 Afebrile, VSS Resting comfortably in bed, responds to voice Respirations nonlabored Abdomen soft, nontender, G-tube in place with no surrounding drainage or bleeding. Currently receiving tube feeding. WBC 8.3, hemoglobin 11.0 Assessment/plan Status post G-tube placement 01/08/[address]-tube [address] with no surrounding drainage or bleeding. Receiving tube feeding this morning with no issues. General surgery will sign off for now however please reconsult with any new issues or concerns. VS,Fishbone, I+O VS, Fishbone, I+O Laboratory Tests 01/09/21 05:33 Vital Signs Date Time Temp Pulse Resp B/P (MAP) Pulse Ox O2 Delivery O2 Flow Rate FiO2 01/09/21 06:00 97.2 73 18 162/74 (103) 95 Room Air 01/08/21 15:39 2.0 I&O- Last 24 Hours up to 6 AM 01/09/21 05:59 Intake Total 1441 ml Output Total 155 ml Balance 1286 ml Atiya Joe Jan 09, 2021 09:03
[2021-01-09] MEDS: ASPIRIN 81 MG CHEW TABLET NG SCH (09:58)
[2021-01-09] MEDS: ACETAMINOPHEN TAB 650MG DOSE (2X325MG) PO PRN ×2 (09:58→21:36)
[2021-01-09] MEDS: FUROSEMIDE 40 MG TAB PEG SCH (09:58)
[2021-01-09] MEDS: SANTYL OINT 30GM TOP SCH (09:59)
--- NOTE | 2021-01-09 11:56 | IPNPDOC ---
Text Note Date of Service The patient was seen on 01/09/21. NOTE SUBJECTIVE: -No acute events -Denies SOB, CP, palpitations. PHYSICAL EXAMINATION: VITAL SIGNS: see below GENERAL APPEARANCE: Awake, alert, NAD HEENT: Atraumatic, normocephalic. Eyes are anicteric. Mucous membranes are dry. CARDIOVASCULAR: NSR, regular rhythm, 3/6 holosystolic murmur at LUSB LUNGS: CTAB, poor respiratory effort ABDOMEN: Normoactive sounds, soft, nondistended. EXTREMITIES: 1+ BLE extremity edema, heels in boots, wounds with c/d/i bandaging NEUROLOGICAL: Clear speech, awake , alert, AOx3 LABORATORY DATA: WBC 8.3 Hgb 11 platelets 221 Na 144 K 3.4 (repleted) Cr 0.84 IMAGING: No new MICROBIOLOGY: UCx with pseudomonas ASSESSMENT: 75 y/o W with a history of invasive ductal carcinoma of the right breast, metastatic to lungs and pleura bilaterally R> L, hormone receptor positive first diagnosed in 2002 s/p lumpectomy, chemo and radiotherapy on hormone therapy, recurrent right sided malignant pleural effusion with Right Pleurx catheter, chronic anemia, CKD3, DM, HTN, diastolic CHF with multiple recent readmissions who was brought in after a fall and found to be hyperglycemic, hyponatremic, with an JUAN on CKD, now pending a PEG tube for nutrition . PLAN: # Hypovolmeic hypernatremia: resolved with hydration - BMP QAM - s/p PEG, on PEG tube feeds - with 250cc free water Q6H to tube feeding plan # Metabolic encephalopathy: resolved Multifactorial metabolic encephalopathy that has resolve., and had been in the setting of JUAN (resolved), Hypernatremia (resolved), and Hyperglycemia (resolved). Patient did have positive peripheral blood culture x1, which has now been shown to be a contaminant and she continues to remain negative for SIRS cri teria. UCx was positive for pseudomonas sensitive to Levaquin. -s/p 7d of Levaquin - fall risk - s/p PEG 01/[address] Holder # Pseudomonas UTI: -Patient continues to be asymptomatic and has baseline mentation. -s/p 7d of levaquin # Aspiration: Patient has failed MMA FIGHTER bedside swallow eval x3 with FEES showing dysfuntion and some edema, s/p PEG on 01/[address] Holder -FSBG Q6H -s/p PEG placement on 01/08, on tube feeds # CKD III with acute kidney injury: resolved -s/p hydration -Renal function now at baseline - BMP qAM # Positive blood culture: Contaminate. Have stopped vanco. # IDDM: HA1c 11 on 12/25/2020, Patient is on ISS and QAM and QHS long acting insulin at home. Hyperglycemia has resolved - FSBG Q6H - ISS - increased Levemir QHS to 20u for persistent hyperglycemia -On jevity feeds via PEG # Multiple comorbidities: -Prior attending had several conversations now with patient and her daughter who is now her POA. Patient continues to express desire to be full code. -POA and patient expressed understanding that home discharge would be unsafe at this time. -PFS consulted for safe discharge planning pending SNF placement now -PT/OT # Chronic HFpEF: -Closely monitoring fluid status in setting of volume repletion. -Holding BP meds and normotensive -lasix 40mg PO daily # Chronic anemia: - daily CBCs - s/p 2units - goal Hgb <8 #Hx DVTs: - Restart her xarelto # HLD -continue meds # Depression -conitnue meds # HTN -holding meds # Asthma Not currently taking medications, continue to monitor - IS at bedside #Chronic wounds: -LE wounds, seen by podiatry to continue dressings and boots -Was seen by plastics per Dr. Looney recommendation and plan is chemical danette ridement followed by surgical debridement, see Dr. Mcintyre's note -Dr. Looney was consulted and recommended podiatry and plastics consults. Dispo: Med Surg floor with likely d/c to rehab or prison care facility Code: Full Code Diet: NPO, on PEG tube feeds DVT Prophy: will restart xarelto Consults: PT/OT, MMA FIGHTER, SW, general surgery, podiatry, plastics VS,Fishbone, I+O VS, Fishbone, I+O Laboratory Tests 01/09/21 05:33 Vital Signs Date Time Temp Pulse Resp B/P (MAP) Pulse Ox O2 Delivery O2 Flow Rate FiO2 01/09/21 06:00 97.2 73 18 162/74 (103) 95 Room Air 01/08/21 15:39 2.0 I&O- Last 24 Hours up to 6 AM 01/09/21 06:00 Intake Total 1901 ml Output Total 155 ml Balance 1746 ml JOSHUA KNIGHT MD Jan 09, 2021 07:59
[2021-01-09 14:00] VITALS: BP 145/64
[2021-01-09 21:27] VITALS: BP 148/65
[2021-01-09] MEDS: SIMVASTATIN 20 MG TAB NG SCH (21:35)
[2021-01-09] MEDS: RIVAROXABAN 20 MG TAB (XARELTO) PEG SCH (21:35)
[2021-01-09] MEDS: OMEPRAZOLE SUSPENSION 20MG 10ML ORAL SYRINGE GT SCH (21:35)
[2021-01-09] MEDS: LEVEMIR (INSULIN DETEMIR) 1 UNITS/0.01ML SC SCH (21:36)
[2021-01-10 05:53] LABS: HEMATOCRIT 32.8 % (36.0-47.0); HEMOGLOBIN 10.4 g/dl (12.0-15.5); MEAN CORPUSCULAR HEMOGLOBIN 29.8 pg (27.0-33.0); MEAN CORPUSCULAR HGB CONC 31.7 g/dl (32.0-36.5); PLATELET COUNT, AUTOMATED 206 10^3/uL (150-450); RED BLOOD COUNT 3.49 10^6/uL (4.00-5.40); WHITE BLOOD COUNT 8.3 10^3/uL (4.0-10.0)
[2021-01-10 06:00] VITALS: BP 143/64
[2021-01-10] MEDS: SLF 3 ML SYR IV SCH ×3 (06:12→22:16)
[2021-01-10] MEDS: HumaLOG INSULIN (NovoLOG) PER UNIT SC SCH ×3 (06:16→18:00)
[2021-01-10 06:17] LABS: BLOOD UREA NITROGEN 20 MG/DL (7-18); CALCIUM LEVEL 7.9 MG/DL (8.8-10.2); CARBON DIOXIDE LEVEL 35 MEQ/L (21-32); CHLORIDE LEVEL 105 MEQ/L (98-107); CREATININE FOR GFR 0.94 MG/DL (0.55-1.30); GLOMERULAR FILTRATION RATE > 60.0 (>39); GLUCOSE, FASTING 122 MG/DL (70-100); POTASSIUM SERUM 3.5 MEQ/L (3.5-5.1); SODIUM LEVEL 141 MEQ/L (136-145)
[2021-01-10] MEDS: FUROSEMIDE 40 MG TAB PEG SCH (10:00)
[2021-01-10] MEDS: ASPIRIN 81 MG CHEW TABLET NG SCH (10:00)
[2021-01-10] MEDS: OMEPRAZOLE SUSPENSION 20MG 10ML ORAL SYRINGE GT SCH (10:00)
[2021-01-10] MEDS: SANTYL OINT 30GM TOP SCH (10:01)
--- NOTE | 2021-01-10 10:37 | REP ---
INDICATION: no drainage from pleurx COMPARISON: 01/02/2021 TECHNIQUE: Portable AP view of the chest FINDINGS: Right-sided chest tube is in stable position. However there appears to be increased pleural fluid and right lower lobe airspace disease. Remainder of the lung colmenares are well aerated and clear. The mediastinum and cardiac silhouette are normal. Skeletal structures are intact. Surgical trevor along the right-side of the chest unchanged. Free air below the left hemidiaphragm cannot be excluded and requires correlation. IMPRESSION: 1. Increased right-sided pleuroparenchymal changes. 2. Cannot exclude pneumoperitoneum and correlation is required. <Electronically signed by Rodney Panda > 01/10/21 103
--- NOTE | 2021-01-10 12:53 | IPNPDOC ---
Text Note Date of Service The patient was seen on 01/10/21. NOTE SUBJECTIVE: -No acute events -Denies SOB, CP, palpitations. PHYSICAL EXAMINATION: VITAL SIGNS: see below GENERAL APPEARANCE: Awake, alert, NAD HEENT: Atraumatic, normocephalic. Eyes are anicteric. Mucous membranes are dry. CARDIOVASCULAR: NSR, regular rhythm, 3/6 holosystolic murmur at LUSB LUNGS: CTAB, poor respiratory effort ABDOMEN: Normoactive sounds, soft, nondistended. EXTREMITIES: 1+ BLE extremity edema, heels in boots, wounds with c/d/i bandaging NEUROLOGICAL: Clear speech, awake , alert, AOx3 LABORATORY DATA: reviewed IMAGING: No new MICROBIOLOGY: UCx with pseudomonas ASSESSMENT: 75 y/o W with a history of invasive ductal carcinoma of the right breast, me tastatic to lungs and pleura bilaterally R> L, hormone receptor positive first diagnosed in 2002 s/p lumpectomy, chemo and radiotherapy on hormone therapy, recurrent right sided malignant pleural effusion with Right Pleurx catheter, chronic anemia, CKD3, DM, HTN, diastolic CHF with multiple recent readmissions who was brought in after a fall and found to be hyperglycemic, hyponatremic, with an JUAN on CKD, now pending a PEG tube for nutrition . PLAN: # Hypovolmeic hypernatremia: resolved with hydration - BMP QAM - s/p PEG, on PEG tube feeds - with 250cc free water Q6H to tube feeding plan # Metabolic encephalopathy: resolved Multifactorial metabolic encephalopathy that has resolve., and had been in the setting of JUAN (resolved), Hypernatremia (resolved), and Hyperglycemia (resolved). Patient did have positive peripheral blood culture x1, which has now been shown to be a contaminant and she continues to remain negative for SIRS criteria. UCx was positive for pseudomonas sensitive to Levaquin. -s/p 7d of Levaquin - fall risk - s/p PEG 01/[address] Holder # Pseudomonas UTI: -Patient continues to be asymptomatic and has baseline mentation. -s/p 7d of levaquin # Aspiration: Patient has failed INGOT STRIPPER bedside swallow eval x3 with FEES showing dysfuntion and some edema, s/p PEG on 01/[address] Holder -FSBG Q6H -s/p PEG placement on 01/08, on tube feeds # CKD III with acute kidney injury: resolved -s/p hydration -Renal function now at baseline - BMP qAM # Positive blood culture: Contaminate. Have stopped vanco. # IDDM: HA1c 11 on 12/25/2020, Patient is on ISS and QAM and QHS long acting insulin at home. Hyperglycemia has resolved - FSBG Q6H - ISS - increased Levemir QHS to 20u for persistent hyperglycemia -On jevity feeds via PEG # Multiple comorbidities: -Prior attending had several conversations now with patient and her daughter who is now her POA. Patient continues to express desire to be full code. -POA and patient expressed understanding that home discharge would be unsafe at this time. -PFS consulted for safe discharge planning pending SNF placement now -PT/OT # Chronic HFpEF: -Closely monitoring fluid status in setting of volume repletion. -Holding BP meds and normotensive -lasix 40mg PO daily # Chronic anemia: - daily CBCs - s/p 2units - goal Hgb <8 #Hx DVTs: - Restart her xarelto # HLD -continue meds # Depression -conitnue meds # HTN -holding meds # Asthma Not currently taking medications, continue to monitor - IS at bedside #Chronic wounds: -LE wounds, seen by podiatry to continue dressings and boots -Was seen by plastics per Dr. Looney recommendation and plan is chemical debridement followed by surgical debridement, see Dr. Mcintyre's note -Dr. Looney was consulted and recommended podiatry and plastics consults. Dispo: Med Surg floor with likely d/c to rehab or terminal computer operator care facility Code: Full Code Diet: NPO, on PEG tube feeds DVT Prophy: will restart xarelto Consults: PT/OT, INGOT STRIPPER, SW, general surgery, podiatry, plastics Dispo: transitioned to [facility], medically stable for SNF status pending discharge planning VS,Fishbone, I+O VS, Fishbone, I+O Laboratory Tests 01/10/21 05:42 Vital Signs Date Time Temp Pulse Resp B/P (MAP) Pulse Ox O2 Delivery O2 Flow Rate FiO2 01/10/21 06:00 97.0 71 18 143/64 (90) 94 Room Air 01/08/21 15:39 2.0 I&O- Last 24 Hours up to AM 01/10/21 06:00 Intake Total 920 ml Output Total 0 ml Balance 920 ml JOSHUA KNIGHT MD Jan 10, 2021 10:05
[2021-01-10] MEDS ORDERED: LIDOCAINE W/EPINEPHRINE 1% 20ML VIAL SC STA (13:11)
--- NOTE | 2021-01-10 13:34 | IPNPDOC ---
Subjective General Date Seen: Jan 10, 2021 Subject Chief Complaint/History The patient is a 75-year-old female admitted with a reason for visit of Hyperglycemia Due To Type 2 Diabetes Mellitus. Patient seen today. She states she is comfortable. No pain. Wounds are stable. Ready for debridement. Informed consent obtained from patient and from daughter Mona Cantrell over the telephone. Risks, benefits and alternatives of debridement discussed. Current Medications Current Medications Current Medications Medications (Trade) Dose Ordered Sig/Joseph Route PRN Reason Start Time Stop Time Status Last Admin Dose Admin Acetaminophen (Tylenol Tab) 650 mg Q4H PRN PO PAIN OR FEVER 12/25/20 15:35 01/09/21 21:36 Al Hydrox/Mg Hydrox/Simethicone (Mylanta) 30 ml DAILY PRN PO DYSPEPSIA 12/25/20 15:35 Amlodipine Besylate (Norvasc) 5 mg DAILY PO 12/26/20 09:00 12/26/20 14:11 DC Aspirin (Aspirin Chewable) 81 mg DAILY NG 12/29/20 09:00 01/10/21 10:00 Aspirin (Ecotrin) 81 mg QHS PO 12/25/20 21:00 12/27/20 13:45 DC Collagenase (SantyL) Apply to pressure injury... DAILY TOP 01/03/21 09:00 01/10/21 10:01 Dextrose (Dextrose 50%) 25 ml ASDIRECTED PRN IV SEE LABEL COMMENTS 12/25/20 15:35 Dextrose/Sodium Chloride 1,000 ml @ 75 mls/hr [id number] IV 12/27/20 00:05 01/01/21 07:55 DC 12/31/20 22:50 Fentanyl Citrate (Sublimaze) 25 mcg Q5MP PRN IV PAIN LEVEL 5-10 01/08/21 15:35 01/08/21 17:35 DC Furosemide (LASIX injection) 20 mg DAILY IV 12/27/20 09:00 01/03/21 09:02 DC 01/02/21 09:00 Furosemide (LASIX injection) 40 mg DAILY IV 01/03/21 09:00 01/05/21 10:00 DC 01/05/21 09:55 Furosemide (Lasix) 40 mg DAILY NG 01/06/21 09:00 01/09/21 07:54 DC 01/08/21 09:31 Furosemide (Lasix) 40 mg DAILY PEG 01/09/21 09:00 01/10/21 10:00 Glucagon (Glucagon) 1 mg ASDIRECTED PRN SC SEE LABEL COMMENTS 12/25/20 15:35 Glucose (Glucose) 16 GM ASDIRECTED PRN PO SEE LABEL COMMENTS 12/25/20 15:35 Heparin Sodium (Porcine) (Heparin) ASDIRECTED PRN IV SEE LABEL COMMENTS 01/04/21 10:50 01/08/21 01:02 DC 01/07/21 06:56 Heparin Sodium (Porcine) (Heparin) 5,000 units Q8H SQ 12/25/20 22:00 12/29/20 08:54 DC 12/28/20 21:16 Heparin Sodium (Porcine) 07927 units/IV Miscellaneous Supplies 250 ml @ 0 mls/hr Q0M IV 01/04/21 10:50 01/08/21 01:02 DC 01/06/21 22:59 Home Med (Med Rec Complete!) ASDIRECTED XX 12/25/20 15:55 12/25/20 15:55 DC Insulin Detemir (Levemir Insulin) 10 units QHS SC 12/26/20 21:00 12/31/20 11:51 DC 12/30/20 20:31 Insulin Detemir (Levemir Insulin) 15 units DAILY SC 12/26/20 09:00 12/26/20 07:13 DC Insulin Detemir (Levemir Insulin) 20 units DAILY SC 12/26/20 09:00 12/26/20 14:11 DC 12/26/20 08:13 Insulin Detemir (Levemir Insulin) 20 units QHS SC 12/25/20 21:00 12/26/20 14:11 DC 12/25/20 23:38 Insulin Detemir (Levemir Insulin) 20 units QHS SC 12/31/20 21:00 01/06/21 18:02 DC 01/05/21 20:56 Insulin Detemir (Levemir Insulin) 30 units QHS SC 01/06/21 21:00 01/09/21 21:36 Insulin Human Lispro (HumaLOG INSULIN) 14 units STAT STAT SC 12/26/20 01:03 12/26/20 01:04 DC 12/26/20 01:12 Insulin Human Lispro (HumaLOG INSULIN) 20 units STAT STAT SC 12/25/20 16:07 12/25/20 16:10 DC 12/25/20 16:25 Insulin Human Lispro (HumaLOG INSULIN) SEE PROTOCOL TABLE AC ND 12/25/20 17:30 12/25/20 23:10 DC Insulin Human Lispro (HumaLOG INSULIN) SEE PROTOCOL TABLE Q4H ND 12/26/20 00:00 01/05/21 16:14 DC 01/05/21 12:35 Insulin Human Lispro (HumaLOG INSULIN) SEE PROTOCOL TABLE Q6H ND 01/05/21 18:00 01/10/21 06:16 Insulin Human Regular 100 unit/ IV Miscellaneous Supplies 100 ml @ 7 mls/hr [id number] IV 12/25/20 15:30 12/25/20 19:55 DC Lactated Ringer's 1,000 ml @ 100 mls/hr Q10H IV 01/08/21 15:35 01/08/21 17:35 DC Levofloxacin (Levaquin) 250 mg DAILY@06 NG 01/01/21 06:00 01/02/21 12:00 DC 01/02/21 05:29 Levofloxacin 250 mg/IV Miscellaneous Supplies 50 ml @ 50 mls/hr Q24H IV 12/29/20 09:00 12/31/20 15:25 DC 12/31/20 08:54 Lidocaine/ Epinephrine (Lidocaine 1%/ Epinephrine) 1 ml STAT STAT SC 01/10/21 13:11 01/10/21 13:13 DC Lisinopril (Prinivil) 20 mg QHS PO 12/25/20 21:00 12/25/20 23:10 DC Magnesium Hydroxide (Milk Of Magnesia) 30 ml DAILY PRN PO CONSTIPATION 12/25/20 15:35 12/27/20 13:45 DC Metoclopramide HCl (REGLAN INJection) 10 mg Q6HP PRN IV NAUSEA OR VOMITING 01/08/21 15:35 01/08/21 17:35 DC Non-Formulary Medication ( See Comment Field Below ) VANC INTERMIT. DOSING ASDIRECTED XX 12/26/20 11:10 12/27/20 08:31 DC Non-Formulary Medication (Heparin Iv Rate Change Documentation ml/ Hr) ASDIRECTED XX 01/04/21 10:50 01/08/21 01:02 DC 01/07/21 06:57 Non-Formulary Medication (Insulin Iv Rate Change Documentation ml/ Hr) ASDIRECTED XX 12/25/20 15:30 12/25/20 19:55 DC Omeprazole (First-Omeprazole ORAL SUSPENSION) 40 mg BID GT 01/09/21 21:00 01/10/21 10:00 Ondansetron HCl (ZOFRAN INJection) 4 mg Q4HP PRN IV NAUSEA OR VOMITING 01/08/21 15:35 01/08/21 17:35 DC Oxymetazoline HCl (Afrin) 2 spray ASDIRECTED PRN NA SEE LABEL COMMENTS 01/03/21 06:15 Pantoprazole Sodium (Protonix) 40 mg Q12H IV 01/03/21 15:00 01/09/21 08:05 DC 01/09/21 03:22 Potassium Chloride 10 meq/ IV Miscellaneous Supplies 100 ml @ 100 mls/hr Q1H IV 12/29/20 09:00 12/29/20 12:59 Cancel Potassium Chloride 10 meq/ IV Miscellaneous Supplies 100 ml @ 100 mls/hr Q4H IV 12/29/20 09:00 12/29/20 08:29 DC Rivaroxaban (Xarelto) 20 mg DAILY@18 TF 12/29/20 18:00 01/03/21 19:14 DC 01/03/21 18:09 Rivaroxaban (Xarelto) 20 mg QHS PEG 01/09/21 21:00 01/09/21 21:35 Rivaroxaban (Xarelto) 20 mg QHS PO 12/25/20 21:00 12/25/20 19:55 DC Simvastatin (Zocor) 20 mg QHS NG 12/29/20 21:00 01/09/21 21:35 Simvastatin (Zocor) 20 mg QHS PO 12/25/20 21:00 12/27/20 13:45 DC Sodium Chloride 1,000 ml @ 100 mls/hr Q10H IV 12/25/20 13:10 12/25/20 15:30 DC 12/25/20 14:12 Sodium Chloride 1,000 ml @ 100 mls/hr Q10H IV 12/26/20 00:00 12/25/20 20:22 DC Sodium Chloride 1,000 ml @ 100 mls/hr Q10H IV 01/08/21 03:35 01/09/21 06:03 DC 01/08/21 23:49 Sodium Chloride 1,000 ml @ 250 mls/hr Q4H IV 12/25/20 15:25 12/25/20 19:55 DC 12/25/20 16:11 Sodium Chloride 1,000 ml @ 250 mls/hr Q4H IV 12/25/20 20:00 12/25/20 20:22 DC 12/25/20 20:00 Sodium Chloride 1,000 ml @ 250 mls/hr Q4H IV 12/26/20 05:25 12/27/20 01:33 DC 12/26/20 21:17 Sodium Chloride (Saline Lock Flush) 2 ml ASDIRECTED PRN IV SEE LABEL COMMENTS 12/25/20 22:25 Sodium Chloride (Saline Lock Flush) 2 ml SLF IV 12/26/20 06:00 01/10/21 06:12 Torsemide (Demadex) 10 mg DAILY PO 12/26/20 09:00 12/27/20 13:45 DC Vancomycin HCl 750 mg/IV Miscellaneous Supplies 1 each/ Sodium Chloride 275 ml @ 275 mls/hr Q24H IV 12/26/20 10:10 12/26/20 11:08 DC Vancomycin HCl 750 mg/IV Miscellaneous Supplies 1 each/ Sodium Chloride 275 ml @ 275 mls/hr Q24H IV 12/27/20 09:00 12/28/20 07:10 DC 12/27/20 09:27 Venlafaxine HCl (Effexor) 75 mg BID PO 12/25/20 21:00 12/27/20 13:45 DC Vitamin D (Vitamin D) 1,000 units QHS PO 12/25/20 21:00 12/27/20 13:45 DC Allergies Coded Allergies: adhesive tape (Verified Allergy, Intermediate, rash, 12/14/20) exenatide (Verified Adverse Reaction, Mild, itching, 12/25/20) Objective Physical Examination Examination GENERAL APPEARANCE:Patient seen, laying in bed, awake, alert, and oriented. Comfortable, in no acute distress. SKIN: Warm and moist. Right hip/lower abdomen area with unstagible pressure wound 10x5x0.5cm cluster, 80% black eschar, 20% skin. Right lateral thigh 2x1 cm DTI, RIght latera knee 6x4 unstagible cluster, 80% black eschar, 20 % skin. LUNGS: Clear to auscultation bilaterally. No wheezing appreciated. HEART: No chest wall abnormalities. Regular rate and rhythm with no murmurs appreciated. ABDOMEN: Abdomen is soft, non-tender, non-distended. EXTREMITIES: No edema identified. No calf tenderness. Vital Signs Vital Signs Date Time Temp Pulse Resp B/P (MAP) Pulse Ox O2 Delivery O2 Flow Rate FiO2 01/10/21 06:00 97.0 71 18 143/64 (90) 94 Room Air 01/08/21 15:39 2.0 I&Os I&O- Last 24 Hours up to 6 AM 01/10/21 05:59 Intake Total 1400 ml Output Total 0 ml Balance 1400 ml Laboratory Data Labs 24H Laboratory Tests 2 01/09/21 17:41: Bedside Glucose (Misc Panel) 190H 01/09/21 20:38: Bedside Glucose (Misc Panel) 197H 01/09/21 23:54: Bedside Glucose (Misc Panel) 234H 01/10/21 05:42: Nucleated Red Blood Cells % (auto) 0.0, Anion Gap 1L, Glomerular Filtration Rate > 60.0, Calcium Level 7.9L 01/10/21 06:08: Bedside Glucose (Misc Panel) 114H 01/10/21 12:40: Bedside Glucose (Misc Panel) 99 CBC/BMP Laboratory Tests 01/10/21 05:42 Microbiology Microbiology 01/07/21 Stool Occult Blood (BAO) - Final, Complete 01/06/21 Stool Occult Blood (BAO) - Final, Complete 01/05/21 Stool Occult Blood (BAO) - Final, Complete 01/04/21 Stool Occult Blood (BAO) - Final, Complete Impression 75 y/o female with pressure wound on the right thigh, hip and knee. Plan for bedside debridement today. Patient is aware of the situation. Informed consent for the procedure obtained from patient and daughter over the telephone. Procedure: 1% lidocaine with epinephrine was used to infiltrate right hip area of the wound and right knee. Total lidocaine used 5 cc. Started debridement on right hip area. We used 15 scalpel to do excisional debridement of necrotic eschar throughout the wound until the subcuticular tissue. Moderate amount of clear fluid was evacuated, no purulence. Minimal amount of blood controlled with pressure. The wound is washed and covered with Betadine gauze. Right thigh wound has minimal amount of superficial scab which was removed with a gauze. Wound completely epithelialized. Right lateral knee complex has cluster wound. Inferior part was scored. Superior part excisional debridement was performed with 15 scalpel until subcuticular layer encountered. Minimal amount of bleeding controlled with pressure. Betadine gauze applied. Patient tolerated procedure well. We will use Betadine dressings were covered by foam dressing tonight. Switch to Santyl cream daily and as needed starting tomorrow. Total blood loss less than 1 cc. Plan / VTE VTE Prophylaxis Ordered?: Yes JORI KIRAN DO Jan 10, 2021 13:34
[2021-01-10 14:00] VITALS: BP 157/68
[2021-01-10 20:29] VITALS: BP 160/64
[2021-01-10] MEDS ORDERED: SIMVASTATIN 20 MG TAB PEG SCH (21:00)
[2021-01-10] MEDS: OMEPRAZOLE SUSPENSION 20MG 10ML ORAL SYRINGE PEG SCH (22:15)
[2021-01-10] MEDS: LEVEMIR (INSULIN DETEMIR) 1 UNITS/0.01ML SC SCH (22:16)
[2021-01-10] MEDS: RIVAROXABAN 20 MG TAB (XARELTO) PEG SCH (22:16)
[2021-01-10] MEDS: ACETAMINOPHEN TAB 650MG DOSE (2X325MG) PO PRN (22:17)
[2021-01-10 23:02] VITALS: BP 159/64
[2021-01-11] MEDS ORDERED: HumaLOG INSULIN (NovoLOG) PER UNIT SC ONE (00:50)
[2021-01-11 06:00] VITALS: BP 143/61
[2021-01-11] MEDS: HumaLOG INSULIN (NovoLOG) PER UNIT SC SCH ×3 (06:00→12:00)
[2021-01-11 06:11] LABS: HEMATOCRIT 33.6 % (36.0-47.0); HEMOGLOBIN 10.5 g/dl (12.0-15.5); MEAN CORPUSCULAR HEMOGLOBIN 29.4 pg (27.0-33.0); MEAN CORPUSCULAR HGB CONC 31.3 g/dl (32.0-36.5); MEAN CORPUSCULAR VOLUME 94.1 fl (80.0-96.0); PLATELET COUNT, AUTOMATED 220 10^3/uL (150-450); RED BLOOD COUNT 3.57 10^6/uL (4.00-5.40); WHITE BLOOD COUNT 9.2 10^3/uL (4.0-10.0)
[2021-01-11] MEDS: SLF 3 ML SYR IV SCH (06:19)
[2021-01-11 06:34] LABS: BLOOD UREA NITROGEN 18 MG/DL (7-18); CALCIUM LEVEL 7.5 MG/DL (8.8-10.2); CARBON DIOXIDE LEVEL 36 MEQ/L (21-32); CHLORIDE LEVEL 102 MEQ/L (98-107); GLOMERULAR FILTRATION RATE > 60.0 (>39); GLUCOSE, FASTING 81 MG/DL (70-100); POTASSIUM SERUM 3.3 MEQ/L (3.5-5.1); SODIUM LEVEL 141 MEQ/L (136-145)
[2021-01-11] MEDS ORDERED: SANT250O8 TOP (07:52)
[2021-01-11] MEDS ORDERED: XARE20TA PEG (07:52)
[2021-01-11] MEDS ORDERED: Omeprazole Suspension PEG (07:52)
[2021-01-11] MEDS ORDERED: INSUHUMDS SC (07:52)
[2021-01-11] MEDS ORDERED: SIMV20TA22 PEG (07:52)
[2021-01-11] MEDS ORDERED: FURO40TA2 PEG (07:52)
--- NOTE | 2021-01-11 08:14 | DS.PDOC ---
Discharge Summary General Date of Admission Dec 25, 2020 at 15:31 Date of Discharge 01/11/2021 Attending Physician: JOSHUA KNIGHT MD Discharge Summary PROCEDURES PERFORMED DURING STAY: 1. PEG tube placement by Dr. Holder 2. Wound debridement by Dr. 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 HISTORY OF PRESENT ILLNESS: 75yo female with history of hormone receptor positive right breast invasive ductal carcinoma first diagnosed in 2002 with metastases to lungs and pleura (R>L) s/p chemo, radiation, lumpectomy currently on hormone therapy with recurrent right-sided malignant pleural effusions and right Pleurx catheter, chronic kidney disease stage III, hypertension, diabetes mellitus, chronic anemia, diastolic CHF with multiple recent hospital admissions who was brought in after fall and after being found down with last known normal around 4 days prior when daughter spoke with her on the phone. She was a poor historian and therefore HPI was limited. HOSPITAL COURSE: On evaluation she was found to have an JUAN on CKD, hyperglycemia, hypovolemic hypernatremia, hypokalemia, hypomagnesemia, Pseydomonas UTI and metabolic encephalopathy likely multifactorial from all the mentioned acute conditions. She was also found with multiple pressure wounds. She was treated with 7d of levaquin for the UTI, had aggressive hydration and electrolyte repletion with resolution of electrolyte abnormalites, had a telemedicine consultation with Dr. Looney who recommended podiatry and plastic surgery consultation and was subsequently seen by Dr. Camarena who recommended continued heel boots and dressings, and Dr. Mcintyre who ordered chemical debridement and subsequently had bedside debridement on 01/10. She is to follow up with Dr. Looney post hospital discharge. In the meantime, her course was complicated by dysphagia with noted edema and repeated failed swallow evaluation with ultimate recommendation for a PEG tube that was placed by Dr. Holder on 01/09 without complications and she is now on tube feeds with no PO. She is now being discharged to [facility]. DISCHARGE MEDICATIONS: Please see below. ALLERGIES: Please see below. PHYSICAL EXAMINATION ON DISCHARGE: VITAL SIGNS: see below GENERAL APPEARANCE: Awake, alert, NAD HEENT: Atraumatic, normocephalic. Eyes are anicteric. Mucous membranes are dry. CARDIOVASCULAR: NSR, regular rhythm, 3/6 holosystolic murmur at LUSB LUNGS: CTAB, poor respiratory effort ABDOMEN: Normoactive sounds, soft, nondistended. EXTREMITIES: No extremity edema, heels in boots, wounds with c/d/i bandaging NEUROLOGICAL: Clear speech, awake , alert, AOx3 LABORATORY DATA: Please see below. IMAGING: XR: IMPRESSION: 1. Patchy parenchymal opacities in the right lower lobe seen on the prior exam are essentially unchanged possibly minimally increased. 2. New pleural thickening on the right as described above possibly reflecting a loculated pleural effusion. 3. Right-sided chest tube is unchanged in position. Head CT: IMPRESSION: 1. No acute intracranial abnormality. 2. Atrophy and chronic deep white matter ischemic changes. CT CSpine: IMPRESSION: 1. No acute abnormality. 2. Chronic findings as discussed above. CT Chest: IMPRESSION: 1. Right-sided pleural fluid as described above. 2. Patchy right lung field opacities likely subsegmental atelectatic changes. Follow-up is suggested. 3. Other findings as described above. She also had multiple chest XR as she had a NGT placed and eventually removed an d a PEG tube placed thereafter. No acute noted pathology. Had some air under diaphragm consistent with recent placement of PEG. Clinically stable. PROGNOSIS: Good ACTIVITY: As tolerated DIET: On PEG tube feeds DISCHARGE PLAN: [facility] DISPOSITION: [facility] DISCHARGE INSTRUCTIONS: [facility] discharge. Follow up within 1 week with GP/PCP and Dr. Looney. ITEMS TO FOLLOWUP ON ON OUTPATIENT: Chronic pressure ulcers DM DISCHARGE CONDITION: Stable TIME SPENT ON DISCHARGE: 65 minutes. Vital Signs/I&Os Vital Signs Date Time Temp Pulse Resp B/P (MAP) Pulse Ox O2 Delivery O2 Flow Rate FiO2 01/11/21 06:00 97.8 64 14 143/61 (88) 95 Nasal Cannula 1.0 I&O- Last 24 Hours up to 6 AM 01/11/21 06:00 Intake Total 1645 ml Balance 1645 ml Laboratory Data Labs 24H Laboratory Tests 2 01/10/21 12:40: Bedside Glucose (Misc Panel) 99 01/10/21 18:21: Bedside Glucose (Misc Panel) 123H 01/10/21 20:10: Bedside Glucose (Misc Panel) 150H 01/10/21 22:15: Coronavirus (COVID-19)(PCR) NEGATIVE 01/11/21 00:05: Bedside Glucose (Misc Panel) 183H 01/11/21 03:25: Bedside Glucose (Misc Panel) 126H 01/11/21 05:43: Nucleated Red Blood Cells % (auto) 0.0, Anion Gap 3L, Glomerular Filtration Rate > 60.0, Calcium Level 7.5L 01/11/21 06:17: Bedside Glucose (Misc Panel) 78L CBC/BMP Laboratory Tests 01/11/21 05:43 FSBS Laboratory Tests Test 01/10/21 12:40 01/10/21 18:21 01/10/21 20:10 01/11/21 00:05 Range/Units Bedside Glucose (Misc Panel) 99 123 150 183 83-110 MG/DL Test 01/11/21 03:25 01/11/21 06:17 Range/Units Bedside Glucose (Misc Panel) 126 78 83-110 MG/DL Microbiology Microbiology 01/07/21 Stool Occult Blood (BAO) - Final, Complete 01/06/21 Stool Occult Blood (BAO) - Final, Complete 01/05/21 Stool Occult Blood (BAO) - Final, Complete 01/04/21 Stool Occult Blood (BAO) - Final, Complete Discharge Medications Scheduled Aspirin (Aspirin EC) 81 Mg Tablet.dr, 81 MG PO QHS, (Reported) Cholecalciferol (Vitamin D3) (Vitamin D3) 1,000 Unit Tablet, 1,000 UNITS PO QHS, (Reported) Collagenase Clostridium Hist. (Santyl) 30 Gm Oint...g., 0 DOSE TOP DAILY Fulvestrant (Faslodex) 250 Mg/5 Ml Syringe, 500 MG IM QMONTH, (Reported) Furosemide (Furosemide) 40 Mg Tablet, 40 MG PEG DAILY Insulin Glargine,Hum.rec.anlog (Basaglar Kwikpen U-100) 100 Unit/1 Ml Insuln.pen, 30 UNIT SC QHS, (Reported) Insulin Human Lispro (Humalog) 100 Unit/1 Ml Vial, 0 UNITS SC Q6H Iron Ps Complex/B12/Folic Acid (Poly-Iron 150 Forte Capsule) 1 Each Capsule, 1 CAP PO QHS, (Reported) Liraglutide (Victoza 2-Juan Carlos) 0.6 Mg/0.1 Ml Pen.injctr, 1.2 MG SC QHS, (Reported) Lisinopril (Lisinopril) 20 Mg Tablet, 20 MG PO QHS, (Reported) Rivaroxaban (Xarelto) 20 Mg Tablet, 20 MG PEG QHS Simvastatin (Simvastatin) 20 Mg Tablet, 20 MG PEG QHS Venlafaxine HCl (Venlafaxine HCl) 75 Mg Tablet, 75 MG PO BID, (Reported) [Omeprazole Suspension] 20 MG/10 ML TYRONE, 40 MG PEG BID Scheduled PRN Acetaminophen (Tylenol Arthritis) 650 Mg Tablet.er, 650 MG PO Q8H PRN for PAIN, (Reported) Allergies Coded Allergies: adhesive tape (Verified Allergy, Intermediate, rash, 12/14/20) exenatide (Verified Adverse Reaction, Mild, itching, 12/25/20) JOSHUA KNIGHT MD Jan 11, 2021 08:14
[2021-01-11] MEDS: FUROSEMIDE 40 MG TAB PEG SCH (08:38)
[2021-01-11] MEDS: SANTYL OINT 30GM TOP SCH (08:39)
[2021-01-11] MEDS: OMEPRAZOLE SUSPENSION 20MG 10ML ORAL SYRINGE PEG SCH (08:41)
[2021-01-11] MEDS ORDERED: ASPIRIN 81 MG CHEW TABLET PEG SCH (09:00)
--- NOTE | 2021-01-11 13:16 | IPNPDOC ---
Subjective General Date Seen: Jan 11, 2021 Subject Chief Complaint/History The patient is a 75-year-old female admitted with a reason for visit of Hyperglycemia Due To Type 2 Diabetes Mellitus. Patient status post right hip and right knee pressure wound debridements yesterday. Patient is feeling well. She reports no pain or discomfort. Current Medications Current Medications Current Medications Medications (Trade) Dose Ordered Sig/Joseph Route PRN Reason Start Time Stop Time Status Last Admin Dose Admin Acetaminophen (Tylenol Tab) 650 mg Q4H PRN PO PAIN OR FEVER 12/25/20 15:35 01/10/21 22:17 Al Hydrox/Mg Hydrox/Simethicone (Mylanta) 30 ml DAILY PRN PO DYSPEPSIA 12/25/20 15:35 Amlodipine Besylate (Norvasc) 5 mg DAILY PO 12/26/20 09:00 12/26/20 14:11 DC Aspirin (Aspirin Chewable) 81 mg DAILY NG 12/29/20 09:00 01/10/21 15:49 DC 01/10/21 10:00 Aspirin (Aspirin Chewable) 81 mg DAILY PEG 01/11/21 09:00 01/11/21 08:38 Aspirin (Ecotrin) 81 mg QHS PO 12/25/20 21:00 12/27/20 13:45 DC Collagenase (SantyL) Apply to pressure injury... DAILY TOP 01/03/21 09:00 01/11/21 08:39 Dextrose (Dextrose 50%) 25 ml ASDIRECTED PRN IV SEE LABEL COMMENTS 12/25/20 15:35 Dextrose/Sodium Chloride 1,000 ml @ 75 mls/hr [id number] IV 12/27/20 00:05 01/01/21 07:55 DC 12/31/20 22:50 Fentanyl Citrate (Sublimaze) 25 mcg Q5MP PRN IV PAIN LEVEL 5-10 01/08/21 15:35 01/08/21 17:35 DC Furosemide (LASIX injection) 20 mg DAILY IV 12/27/20 09:00 01/03/21 09:02 DC 01/02/21 09:00 Furosemide (LASIX injection) 40 mg DAILY IV 01/03/21 09:00 01/05/21 10:00 DC 01/05/21 09:55 Furosemide (Lasix) 40 mg DAILY NG 01/06/21 09:00 01/09/21 07:54 DC 01/08/21 09:31 Furosemide (Lasix) 40 mg DAILY PEG 01/09/21 09:00 01/11/21 08:38 Glucagon (Glucagon) 1 mg ASDIRECTED PRN SC SEE LABEL COMMENTS 12/25/20 15:35 Glucose (Glucose) 16 GM ASDIRECTED PRN PO SEE LABEL COMMENTS 12/25/20 15:35 Heparin Sodium (Porcine) (Heparin) ASDIRECTED PRN IV SEE LABEL COMMENTS 01/04/21 10:50 01/08/21 01:02 DC 01/07/21 06:56 Heparin Sodium (Porcine) (Heparin) 5,000 units Q8H SQ 12/25/20 22:00 12/29/20 08:54 DC 12/28/20 21:16 Heparin Sodium (Porcine) 30949 units/IV Miscellaneous Supplies 250 ml @ 0 mls/hr Q0M IV 01/04/21 10:50 01/08/21 01:02 DC 01/06/21 22:59 Home Med (Med Rec Complete!) ASDIRECTED XX 12/25/20 15:55 12/25/20 15:55 DC Insulin Detemir (Levemir Insulin) 10 units QHS SC 12/26/20 21:00 12/31/20 11:51 DC 12/30/20 20:31 Insulin Detemir (Levemir Insulin) 15 units DAILY SC 12/26/20 09:00 12/26/20 07:13 DC Insulin Detemir (Levemir Insulin) 20 units DAILY SC 12/26/20 09:00 12/26/20 14:11 DC 12/26/20 08:13 Insulin Detemir (Levemir Insulin) 20 units QHS SC 12/25/20 21:00 12/26/20 14:11 DC 12/25/20 23:38 Insulin Detemir (Levemir Insulin) 20 units QHS SC 12/31/20 21:00 01/06/21 18:02 DC 01/05/21 20:56 Insulin Detemir (Levemir Insulin) 30 units QHS SC 01/06/21 21:00 01/10/21 22:16 Insulin Human Lispro (HumaLOG INSULIN) 14 units STAT STAT SC 12/26/20 01:03 12/26/20 01:04 DC 12/26/20 01:12 Insulin Human Lispro (HumaLOG INSULIN) 20 units STAT STAT SC 12/25/20 16:07 12/25/20 16:10 DC 12/25/20 16:25 Insulin Human Lispro (HumaLOG INSULIN) SEE PROTOCOL TABLE AC CA 12/25/20 17:30 12/25/20 23:10 DC Insulin Human Lispro (HumaLOG INSULIN) SEE PROTOCOL TABLE Q4H CA 12/26/20 00:00 01/05/21 16:14 DC 01/05/21 12:35 Insulin Human Lispro (HumaLOG INSULIN) SEE PROTOCOL TABLE Q6H CA 01/05/21 18:00 01/10/21 06:16 Insulin Human Regular 100 unit/ IV Miscellaneous Supplies 100 ml @ 7 mls/hr [id number] IV 12/25/20 15:30 12/25/20 19:55 DC Lactated Ringer's 1,000 ml @ 100 mls/hr Q10H IV 01/08/21 15:35 01/08/21 17:35 DC Levofloxacin (Levaquin) 250 mg DAILY@06 NG 01/01/21 06:00 01/02/21 12:00 DC 01/02/21 05:29 Levofloxacin 250 mg/IV Miscellaneous Supplies 50 ml @ 50 mls/hr Q24H IV 12/29/20 09:00 12/31/20 15:25 DC 12/31/20 08:54 Lidocaine/ Epinephrine (Lidocaine 1%/ Epinephrine) 1 ml STAT STAT SC 01/10/21 13:11 01/10/21 13:13 DC 01/10/21 13:45 Lisinopril (Prinivil) 20 mg QHS PO 12/25/20 21:00 12/25/20 23:10 DC Magnesium Hydroxide (Milk Of Magnesia) 30 ml DAILY PRN PO CONSTIPATION 12/25/20 15:35 12/27/20 13:45 DC Metoclopramide HCl (REGLAN INJection) 10 mg Q6HP PRN IV NAUSEA OR VOMITING 01/08/21 15:35 01/08/21 17:35 DC Non-Formulary Medication ( See Comment Field Below ) VANCO INTERMIT. DOSING ASDIRECTED XX 12/26/20 11:10 12/27/20 08:31 DC Non-Formulary Medication (Heparin Iv Rate Change Documentation ml/ Hr) ASDIRECTED XX 01/04/21 10:50 01/08/21 01:02 DC 01/07/21 06:57 Non-Formulary Medication (Insulin Iv Rate Change Documentation ml/ Hr) ASDIRECTED XX 12/25/20 15:30 12/25/20 19:55 DC Omeprazole (First-Omeprazole ORAL SUSPENSION) 40 mg BID GT 01/09/21 21:00 01/10/21 15:49 DC 01/10/21 10:00 Omeprazole (First-Omeprazole ORAL SUSPENSION) 40 mg BID PEG 01/10/21 21:00 01/11/21 08:41 Ondansetron HCl (ZOFRAN INJection) 4 mg Q4HP PRN IV NAUSEA OR VOMITING 01/08/21 15:35 01/08/21 17:35 DC Oxymetazoline HCl (Afrin) 2 spray ASDIRECTED PRN NA SEE LABEL COMMENTS 01/03/21 06:15 Pantoprazole Sodium (Protonix) 40 mg Q12H IV 01/03/21 15:00 01/09/21 08:05 DC 01/09/21 03:22 Potassium Chloride 10 meq/ IV Miscellaneous Supplies 100 ml @ 100 mls/hr Q1H IV 12/29/20 09:00 12/29/20 12:59 Cancel Potassium Chloride 10 meq/ IV Miscellaneous Supplies 100 ml @ 100 mls/hr Q4H IV 12/29/20 09:00 12/29/20 08:29 DC Rivaroxaban (Xarelto) 20 mg DAILY@18 TF 12/29/20 18:00 01/03/21 19:14 DC 01/03/21 18:09 Rivaroxaban (Xarelto) 20 mg QHS PEG 01/09/21 21:00 01/10/21 22:16 Rivaroxaban (Xarelto) 20 mg QHS PO 12/25/20 21:00 12/25/20 19:55 DC Simvastatin (Zocor) 20 mg QHS NG 12/29/20 21:00 01/10/21 15:49 DC 01/09/21 21:35 Simvastatin (Zocor) 20 mg QHS PEG 01/10/21 21:00 01/10/21 22:16 Simvastatin (Zocor) 20 mg QHS PO 12/25/20 21:00 12/27/20 13:45 DC Sodium Chloride 1,000 ml @ 100 mls/hr Q10H IV 12/25/20 13:10 12/25/20 15:30 DC 12/25/20 14:12 Sodium Chloride 1,000 ml @ 100 mls/hr Q10H IV 12/26/20 00:00 12/25/20 20:22 DC Sodium Chloride 1,000 ml @ 100 mls/hr Q10H IV 01/08/21 03:35 01/09/21 06:03 DC 01/08/21 23:49 Sodium Chloride 1,000 ml @ 250 mls/hr Q4H IV 12/25/20 15:25 12/25/20 19:55 DC 12/25/20 16:11 Sodium Chloride 1,000 ml @ 250 mls/hr Q4H IV 12/25/20 20:00 12/25/20 20:22 DC 12/25/20 20:00 Sodium Chloride 1,000 ml @ 250 mls/hr Q4H IV 12/26/20 05:25 12/27/20 01:33 DC 12/26/20 21:17 Sodium Chloride (Saline Lock Flush) 2 ml ASDIRECTED PRN IV SEE LABEL COMMENTS 12/25/20 22:25 Sodium Chloride (Saline Lock Flush) 2 ml SLF IV 12/26/20 06:00 01/11/21 06:19 Torsemide (Demadex) 10 mg DAILY PO 12/26/20 09:00 12/27/20 13:45 DC Vancomycin HCl 750 mg/IV Miscellaneous Supplies 1 each/ Sodium Chloride 275 ml @ 275 mls/hr Q24H IV 12/26/20 10:10 12/26/20 11:08 DC Vancomycin HCl 750 mg/IV Miscellaneous Supplies 1 each/ Sodium Chloride 275 ml @ 275 mls/hr Q24H IV 12/27/20 09:00 12/28/20 07:10 DC 12/27/20 09:27 Venlafaxine HCl (Effexor) 75 mg BID PO 12/25/20 21:00 12/27/20 13:45 DC Vitamin D (Vitamin D) 1,000 units QHS PO 12/25/20 21:00 12/27/20 13:45 DC Allergies Coded Allergies: adhesive tape (Verified Allergy, Intermediate, rash, 12/14/20) exenatide (Verified Adverse Reaction, Mild, itching, 12/25/20) Objective Physical Examination Examination GENERAL APPEARANCE:Patient seen, laying in bed, awake, alert, and oriented. Comfortable, in no acute distress. SKIN: Warm and moist. Right hip wound cluster 10 x 5 cm. No active bleeding. Residual soft necrotic subcuticular tissue mild. No odor. Clear mild drainage. Right lateral knee cluster wound no active bleeding. No signs of infection. LUNGS: Clear to auscultation bilaterally. No wheezing appreciated. HEART: No chest wall abnormalities. Regular rate and rhythm with no murmurs appreciated. ABDOMEN: Abdomen is soft, non-tender, non-distended. EXTREMITIES: No edema identified. No calf tenderness. Vital Signs Vital Signs Date Time Temp Pulse Resp B/P (MAP) Pulse Ox O2 Delivery O2 Flow Rate FiO2 01/11/21 06:00 97.8 64 14 143/61 (88) 95 Nasal Cannula 1.0 I&Os I&O- Last 24 Hours up to 6 AM 01/11/21 06:00 Intake Total 1645 ml Balance 1645 ml Laboratory Data Labs 24H Laboratory Tests 2 01/10/21 18:21: Bedside Glucose (Misc Panel) 123H 01/10/21 20:10: Bedside Glucose (Misc Panel) 150H 01/10/21 22:15: Coronavirus (COVID-19)(PCR) NEGATIVE 01/11/21 00:05: Bedside Glucose (Misc Panel) 183H 01/11/21 03:25: Bedside Glucose (Misc Panel) 126H 01/11/21 05:43: Nucleated Red Blood Cells % (auto) 0.0, Anion Gap 3L, Glomerular Filtration Rate > 60.0, Calcium Level 7.5L 01/11/21 06:17: Bedside Glucose (Misc Panel) 78L 01/11/21 11:50: Bedside Glucose (Misc Panel) 87 CBC/BMP Laboratory Tests 01/11/21 05:43 Microbiology Microbiology 01/07/21 Stool Occult Blood (BAO) - Final, Complete 01/06/21 Stool Occult Blood (BAO) - Final, Complete 01/05/21 Stool Occult Blood (BAO) - Final, Complete 01/04/21 Stool Occult Blood (BAO) - Final, Complete Impression 75 y/o female with pressure wounds right hip stage III, Right thigh - resolved (scab), Right lateral knee stage III. Plan: Initial debridement tolerated well. Continue with Santyl daily and prn to Right hip, right lateral knee. Right thigh daily skin prep. (covilon) Patient is planned to be discharged to rehab. F/up with wound care center after discharge. Plan / VTE VTE Prophylaxis Ordered?: Yes JORI KIRAN DO Jan 11, 2021 13:16
== END 2021-01-11 13:15 | DRG 637 ==
LOC: M ED 12:54 → EDBD 12:54 → M ED INP 15:31 → ENRESERV 21:40 → M PCU 22:05 → M MSPAV 12-31 14:38
PROVIDERS: ADMIT General Practice; ATTEND Internal Medicine
PROC: 0DH64UZ Insertion of Feeding Device into Stomach, Percutaneous Endoscopic Approach (ICD-10-PCS; principal; 2021-01-08 07:41)
DX: E11.65 Type 2 diabetes mellitus with hyperglycemia (principal); G93.41 Metabolic encephalopathy; I50.33 Acute on chronic diastolic (congestive) heart failure; L89.893 Pressure ulcer of other site, stage 3; I13.0 Hypertensive heart and chronic kidney disease with heart failure and stage 1 through stage 4 chronic kidney disease, or unspecified chronic kidney disease; C78.00 Secondary malignant neoplasm of unspecified lung; N39.0 Urinary tract infection, site not specified; E87.0 Hyperosmolality and hypernatremia; C50.911 Malignant neoplasm of unspecified site of right female breast; E87.6 Hypokalemia; E83.42 Hypomagnesemia; N18.30 Chronic kidney disease, stage 3 unspecified; J45.909 Unspecified asthma, uncomplicated; F32.9 Major depressive disorder, single episode, unspecified; Z92.3 Personal history of irradiation; Z92.21 Personal history of antineoplastic chemotherapy; B96.5 Pseudomonas (aeruginosa) (mallei) (pseudomallei) as the cause of diseases classified elsewhere; Z79.899 Other long term (current) drug therapy; Z79.82 Long term (current) use of aspirin; Z79.4 Long term (current) use of insulin; Z88.8 Allergy status to other drugs, medicaments and biological substances; Z98.41 Cataract extraction status, right eye; Z98.42 Cataract extraction status, left eye; L89.619 Pressure ulcer of right heel, unspecified stage; E78.5 Hyperlipidemia, unspecified; R29.6 Repeated falls; R13.10 Dysphagia, unspecified; D64.9 Anemia, unspecified

== ENCOUNTER 2021-01-17 03:53 | Emergency (ER) | payer MEDICARE ==
[~2021-01-17 03:53] MED LIST changes: +AMLO1TAB24 PO; +FURO40TA2 PEG; +INSUHUMDS SC; +Omeprazole Suspension PEG; +SANT250O8 TOP; +SIMV20TA22 PEG; +XARE20TA PEG
[2021-01-17 06:37] VITALS: BP 169/82
[2021-01-21] MEDS ORDERED: ACET-907 PEG (20:55)
[2021-01-21] MEDS ORDERED: PRILOSEC PEG (20:55)
[2021-01-21] MEDS ORDERED: ASPI1CHW3 PEG (20:55)
[2021-01-21] MEDS ORDERED: FURO40TA2 PEG (20:55)
== END 2021-01-17 06:38 | disposition home or self-care (01) ==
LOC: M ED 03:53
DX: R23.9 Unspecified skin changes (principal); Z93.1 Gastrostomy status; E11.9 Type 2 diabetes mellitus without complications; I50.33 Acute on chronic diastolic (congestive) heart failure; I13.0 Hypertensive heart and chronic kidney disease with heart failure and stage 1 through stage 4 chronic kidney disease, or unspecified chronic kidney disease; C50.911 Malignant neoplasm of unspecified site of right female breast; R13.10 Dysphagia, unspecified; Z91.09 Other allergy status, other than to drugs and biological substances; Z79.82 Long term (current) use of aspirin; Z79.899 Other long term (current) drug therapy

== ENCOUNTER 2021-01-21 13:32 | Inpatient (IN) | payer MEDICARE ==
[~2021-01-21] VITALS: Ht 165.1 cm; Wt 74.0 kg
[2021-01-21] MEDS ORDERED: LIDOCAINE 2% 5ML JELLY UROJET TOP ONE (14:50)
--- NOTE | 2021-01-21 15:22 | REP ---
INDICATION: abd pain. gtube place,ent COMPARISON: Comparison CT study abdomen pelvis October 30, 2020. Comparison chest CT study December 25, 2020.. TECHNIQUE: Helical scanning is acquired and 3 mm axial images were reformatted. Coronal and sagittal MPR images were generated and reviewed. FINDINGS: Preliminary digital screedman radiograph shows an unremarkable bowel gas pattern. A G-tube is noted on this film. On axial CT images, there are small bilateral pleural effusions, right greater than left. There is a PleurX catheter in the right pleural space. The amount of pleural fluid in the right pleural space is appears somewhat increased compared to the October 30, 2020 study at least posteriorly. The left effusion is new compared to the prior study. Mitral annular calcification is observed. No pericardial effusion is seen. Normal adrenal glands are seen. There is a low-density liver lesion again noted measuring 1.7 cm in diameter. This is essentially unchanged from the comparison study October 30, 2020. No definite new liver lesion is seen. There is a single granulomatous calcification in the spleen. Normal adrenal glands. No abnormalities noted in the pancreas. Gallbladder is unremarkable. There is a 19 mm fat density in the proximal duodenum consistent with a duodenal lipoma. This is unchanged from the comparison study. No abnormality is noted in the pancreas. Kidneys are morphologically intact. No retroperitoneal mass is seen. Urinary bladder, UB uterus, and ovaries are unremarkable. The gastrostomy tube is noted partially dislodged with retention device located in the anterior abdominal wall in the epigastric region. This is surrounded by some soft tissue gas. It is adjacent to the adherent anterior wall the stomach. No oz abscess is seen. There is a umbilical hernia just below the gastrostomy tube placement site trans Lou a small quantity of omental fat. There is no evidence of free intraperitoneal air or abscess. There is a defect in the skin of the right flank at the level of the iliac crest with some surrounding soft tissue edema and emphysema. This is of uncertain etiology. No bony destructive lesion is seen. 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 IMPRESSION: Small bilateral pleural effusions. Stable low-density liver lesion. Benign duodenal lipoma. Anteriorly dislodged gastrostomy tube with the retention balloon residing in the abdominal wall. There is some adjacent soft tissue emphysema. <Electronically signed by Damien Braun > 01/21/21 1047
[2021-01-21 16:15] LABS: HEMATOCRIT 33.7 % (36.0-47.0); HEMOGLOBIN 10.7 g/dl (12.0-15.5); MEAN CORPUSCULAR HEMOGLOBIN 29.8 pg (27.0-33.0); MEAN CORPUSCULAR HGB CONC 31.8 g/dl (32.0-36.5); MEAN CORPUSCULAR VOLUME 93.9 fl (80.0-96.0); PLATELET COUNT, AUTOMATED 250 10^3/uL (150-450); RED BLOOD COUNT 3.59 10^6/uL (4.00-5.40); WHITE BLOOD COUNT 10.6 10^3/uL (4.0-10.0)
[2021-01-21 16:32] LABS: BLOOD UREA NITROGEN 28 MG/DL (7-18); CALCIUM LEVEL 8.5 MG/DL (8.8-10.2); CARBON DIOXIDE LEVEL 37 MEQ/L (21-32); CHLORIDE LEVEL 96 MEQ/L (98-107); CREATININE FOR GFR 0.96 MG/DL (0.55-1.30); GLOMERULAR FILTRATION RATE > 60.0 (>39); GLUCOSE, FASTING 205 MG/DL (70-100); POTASSIUM SERUM 3.7 MEQ/L (3.5-5.1); SODIUM LEVEL 139 MEQ/L (136-145)
[2021-01-21] MEDS ORDERED: D5W/0.45% SODIUM CHLORIDE 1,000 ML IV SCH (17:10)
[2021-01-21] MEDS ORDERED: GLUCOSE 4GM CHEW TABLET PO PRN (17:45)
[2021-01-21] MEDS ORDERED: GLUCAGON INJ 1MG VIAL SC PRN (17:45)
[2021-01-21] MEDS ORDERED: DEXTROSE 50% 50 ML SYRINGE IV PRN (17:45)
--- NOTE | 2021-01-21 18:07 | REP ---
INDICATION: ng tube placement. COMPARISON: 01/10/2021 also portable TECHNIQUE: AP and lateral FINDINGS: The technique utilized in obtaining the radiograph has magnified the cardiac silhouette and attenuated the interstitial markings. The superior mediastinal structures are midline. The cardiac silhouette is unremarkable in size, shape, and position. The diaphragmatic surfaces of the lungs are regular, and the costophrenic angles are clear. The right-sided thoracotomy tube is unchanged. The pulmonary colmenares are unchanged. Stable chronic right CP angle blunting and mild patchy right basilar opacities. The imaged osseous structures are intact. IMPRESSION: There is no significant change from the prior exam other than technique. Although reason for exam indicates nasogastric tube placement there is no nasogastric tube. <Electronically signed by Otto Lopez > 01/21/21 0433
[2021-01-21 18:49] LABS: RSV AMPLIFICATION NEGATIVE (NEGATIVE)
[2021-01-21] MEDS: HumaLOG INSULIN (NovoLOG) PER UNIT SC SCH ×2 (19:12→21:24)
--- NOTE | 2021-01-21 20:06 | HPEPDOC ---
[facility] Medical History & Physical Date of Admission Jan 21, 2021 Date of Service: Jan 21, 2021 History and Physical History and Physical Examination dictated job # [id number] A/P: 75 F w pmh metastatic breast ca s/p chemo/rt, recurrent malignant pleural effusion s/p pleurex cath, dvt on chronic anticoagulation, dm, htn, s/p PEG presents to the ED with malfunctioning PEG found on CT abd: malpositioned PEG. Malfunctioning PEG -Dr. Banks General Surgery consulted, and recommended ng tube for meds and nutrition, no oral AC for 48hrs, PEG replacement Thursday, IV abx. h/o DVT held anticoagulant for PEG replacement on Thursday. recheck venous dopplers b/l LE. if positive for dvt, place on heparin iv gtt which can be held prior to peg on thursday DM HTN h/o breast ca w malignant pleural effusion s/p pleurex. Vital Signs Vital Signs Date Time Temp Pulse Resp B/P (MAP) Pulse Ox O2 Delivery O2 Flow Rate FiO2 01/21/21 19:17 98.9 77 16 158/71 (100) 95 Room Air Laboratory Data Labs 24H Laboratory Tests 2 01/21/21 14:50: Nucleated Red Blood Cells % (auto) 0.0, Anion Gap 6L, Glomerular Filtration Rate > 60.0, Calcium Level 8.5L 01/21/21 18:03: Coronavirus (COVID-19)(PCR) NEGATIVE, Influenza Type A (RT-PCR) NEGATIVE, Influenza Type B (RT-PCR) NEGATIVE, Respiratory Syncytial Virus (PCR) NEGATIVE CBC/BMP Laboratory Tests 01/21/21 14:50 Home Medications Scheduled Aspirin (Aspirin EC) 81 Mg Tablet.dr, 81 MG PO QHS Cholecalciferol (Vitamin D3) (Vitamin D3) 1,000 Unit Tablet, 1,000 UNITS PO QHS Collagenase Clostridium Hist. (Santyl) 30 Gm Oint...g., 0 DOSE TOP DAILY Fulvestrant (Faslodex) 250 Mg/5 Ml Syringe, 500 MG IM QMONTH Furosemide (Furosemide) 40 Mg Tablet, 40 MG PEG DAILY Insulin Glargine,Hum.rec.anlog (Basaglar Kwikpen U-100) 100 Unit/1 Ml Insuln.pen, 30 UNIT SC QHS Insulin Human Lispro (Humalog) 100 Unit/1 Ml Vial, 0 UNITS SC Q6H Iron Ps Complex/B12/Folic Acid (Poly-Iron 150 Forte Capsule) 1 Each Capsule, 1 CAP PO QHS Liraglutide (Victoza 2-Juan Carlos) 0.6 Mg/0.1 Ml Pen.injctr, 1.2 MG SC QHS Lisinopril (Lisinopril) 20 Mg Tablet, 20 MG PO QHS Rivaroxaban (Xarelto) 20 Mg Tablet, 20 MG PEG QHS Simvastatin (Simvastatin) 20 Mg Tablet, 20 MG PEG QHS Venlafaxine HCl (Venlafaxine HCl) 75 Mg Tablet, 75 MG PO BID [Omeprazole Suspension] 20 MG/10 ML TYRONE, 40 MG PEG BID Scheduled PRN Acetaminophen (Tylenol Arthritis) 650 Mg Tablet.er, 650 MG PO Q8H PRN for PAIN Allergies Coded Allergies: adhesive tape (Verified Allergy, Intermediate, rash, 12/14/20) exenatide (Verified Adverse Reaction, Mild, itching, 12/25/20) A-FIB/CHADSVASC A-FIB History Current/History of A-Fib/PAF?: No Current PO Anticoag Therapy: No Age/Risk Factor Scoring CHADSVASC: CHADSVASC Response (Comments) Value Age Risk Factor Age >/= 75 years old 2 Gender Risk Factor Female 1 Hx of CHF Yes 1 Hx of HTN Yes 1 Hx of Stroke/TIA/or VTE No 0 Hx of Diabetes Yes 1 Hx of Vascular Disease No 0 Total 6 Treatment Treatment ordered: NONE MARIIA LAU MD Jan 21, 2021 20:06
[2021-01-21] MEDS ORDERED: PRILOSEC GT (20:55)
[2021-01-21] MEDS ORDERED: BASA100I SC (20:55)
[2021-01-21] MEDS ORDERED: ACET-907 GT (20:55)
[2021-01-21] MEDS ORDERED: FURO40TA2 GT (20:55)
[2021-01-21] MEDS ORDERED: INSUHUMDS SC (20:55)
[2021-01-21] MEDS ORDERED: ASPI1CHW3 GT (20:55)
[2021-01-21] MEDS: SIMVASTATIN 20 MG TAB NG SCH (21:00)
[2021-01-21] MEDS ORDERED: HOME MED LIST COMPLETE! XX SCH (21:00)
[2021-01-21] MEDS: PIPERACILLIN/TAZOBACTAM SOD 2.25 GM in D5W MINI-BAG PLUS 50 ML IV SCH (21:20)
[2021-01-21] MEDS: NITROGLYCERIN 2% OINT 1 GM *U/D* PKT TOP SCH (21:25)
--- NOTE | 2021-01-21 22:58 | REPVR ---
PROCEDURE INFORMATION: Exam: US Duplex Lower Extremity Veins, Bilateral Exam date and time: 01/21/2021 10:07 PM Age: 75 years old Clinical indication: Condition or disease; Embolism or thrombosis; Lower extremity, left; Additional info: H/o dvt off xarelto R/O recurrent dvt TECHNIQUE: Imaging protocol: Real-time duplex ultrasound of the extremities with 2-D alexander scale, color Doppler flow and spectral waveform analysis with image documentation. Complete exam focused on the bilateral lower extremity veins. COMPARISON: US Duplex, Ext LOWER veins, bilat BILATERAL 10/31/2020 9:48 AM FINDINGS: Right deep veins: Unremarkable. The common femoral, femoral, proximal profunda femoral. However, there is a small amount of thrombus along the margin of the popliteal vein. Right superficial veins: Saphenofemoral junction is patent without thrombus. Left deep veins: Unremarkable. The common femoral, femoral, proximal profunda femoral and popliteal veins are patent without thrombus. Normal Doppler waveforms. Normal compressibility and/or augmentation response. Left superficial veins: Saphenofemoral junction is patent without thrombus. Soft tissues: Mild right edema. IMPRESSION: There is a small amount of thrombus along the margin of the right popliteal vein. Electronically signed by: Louis De La Vega On 01/21/2021 22:57:39 PM
[2021-01-21] MEDS ORDERED: ENOXAPARIN 80MG/0.8ML SYRINGE (J1650 PER 10MG) SC SCH (23:15)
[2021-01-21] MEDS ORDERED: HEPARIN DRIP 25,000 UNITS in IV 1 EA IV SCH (23:20)
[2021-01-21] MEDS ORDERED: HEPARIN SOD (PORCINE) 5000UNITS/ML 1ML VIAL/SYRINGE IV PRN (23:20)
--- NOTE | 2021-01-21 23:20 | REPVR ---
PROCEDURE INFORMATION: Exam: XR Chest Exam date and time: 01/21/2021 11:00 PM Age: 75 years old Clinical indication: Device placement; Ng tube; Additional info: Ngt placement TECHNIQUE: Imaging protocol: XR of the chest. Views: 1 view. COMPARISON: CR PORTABLE CHEST X-RAY 01/10/2021 10:26 AM FINDINGS: Tubes, catheters and devices: Surgical clips are noted at the right thorax. A right-sided chest tube is in place. A nasogastric tube has been placed and is coiled in the upper esophagus. This should be redirected to have the tip enter the stomach. Lungs: There is atelectasis and infiltrate medial left lung base. Pleural spaces: There is a small amount of pleural fluid on the right. Heart/Mediastinum: The heart is top-normal in size. IMPRESSION: The nasogastric tube is coiled in the upper esophagus and should be redirected. Findings were discussed with MARIIA LAU at 01/21/2021 11:19 PM EDT. Electronically signed by: Louis De La Vega On 01/21/2021 23:20:09 PM
[2021-01-22 00:16] LABS: HEMATOCRIT 32.7 % (36.0-47.0); HEMOGLOBIN 10.3 g/dl (12.0-15.5); MEAN CORPUSCULAR HEMOGLOBIN 29.8 pg (27.0-33.0); MEAN CORPUSCULAR HGB CONC 31.5 g/dl (32.0-36.5); MEAN CORPUSCULAR VOLUME 94.5 fl (80.0-96.0); PLATELET COUNT, AUTOMATED 229 10^3/uL (150-450); RED BLOOD COUNT 3.46 10^6/uL (4.00-5.40); WHITE BLOOD COUNT 9.2 10^3/uL (4.0-10.0)
--- NOTE | 2021-01-22 01:52 | REPVR ---
PROCEDURE INFORMATION: Exam: XR Chest Exam date and time: 01/21/2021 11:48 PM Age: 75 years old Clinical indication: Device placement; Ng tube; Additional info: F/u on reinserted ng tube TECHNIQUE: Imaging protocol: XR of the chest. Views: 1 view. COMPARISON: CR Chest, 1 view 01/21/2021 10:46 PM FINDINGS: Tubes, catheters and devices: The nasogastric tube is coiled in the stomach with the tip of the tube directed cephalad in the distal esophagus. Right chest tube is unchanged. Lungs: Patchy airspace infiltrates in the left lung base. Pleural spaces: No pleural effusion. No pneumothorax. Heart/Mediastinum: Unremarkable. No cardiomegaly. Bones/joints: Skeletal degenerative changes are noted. Soft tissues: Postoperative changes in the right breast. IMPRESSION: Nasogastric tube coiled in the stomach with the tip directed cephalad in the distal esophagus. Electronically signed by: Pb Good On 01/22/2021 01:51:18 AM
[2021-01-22] MEDS: PIPERACILLIN/TAZOBACTAM SOD 2.25 GM in D5W MINI-BAG PLUS 50 ML IV SCH ×4 (03:52→22:14)
[2021-01-22] MEDS: NITROGLYCERIN 2% OINT 1 GM *U/D* PKT TOP SCH ×4 (03:56→22:13)
[2021-01-22 05:55] LABS: BASO % 0.3 % (0.0-1.0); EOS % 0.1 % (0.0-3.0); HEMATOCRIT 30.4 % (36.0-47.0); HEMOGLOBIN 9.5 g/dl (12.0-15.5); LYMPH # 1.2 10^3/uL (1.5-5.0); MEAN CORPUSCULAR HEMOGLOBIN 29.4 pg (27.0-33.0); MEAN CORPUSCULAR HGB CONC 31.3 g/dl (32.0-36.5); MEAN CORPUSCULAR VOLUME 94.1 fl (80.0-96.0); MONO # 0.5 10^3/uL (0.0-0.8); MONO % 7.2 % (2.0-8.0); NEUTROPHILS # 5.4 10^3/uL (1.5-8.5); NEUTROPHILS % 74.5 % (36.0-66.0); PLATELET COUNT, AUTOMATED 219 10^3/uL (150-450); RED BLOOD COUNT 3.23 10^6/uL (4.00-5.40); WHITE BLOOD COUNT 7.3 10^3/uL (4.0-10.0)
[2021-01-22 06:17] LABS: BLOOD UREA NITROGEN 30 MG/DL (7-18); CALCIUM LEVEL 7.8 MG/DL (8.8-10.2); CARBON DIOXIDE LEVEL 34 MEQ/L (21-32); CHLORIDE LEVEL 95 MEQ/L (98-107); CREATININE FOR GFR 0.96 MG/DL (0.55-1.30); GLOMERULAR FILTRATION RATE > 60.0 (>39); GLUCOSE, FASTING 392 MG/DL (70-100); POTASSIUM SERUM 3.4 MEQ/L (3.5-5.1); SODIUM LEVEL 135 MEQ/L (136-145)
[2021-01-22] MEDS ORDERED: POTASSIUM CHLORIDE 10% LIQ 20 MEQ/15 ML UDC FT ONE (06:40)
[2021-01-22] MEDS: HumaLOG INSULIN (NovoLOG) PER UNIT SC SCH ×5 (06:52→23:56)
--- NOTE | 2021-01-22 07:27 | HPE ---
HISTORY AND PHYSICAL DATE OF ADMISSION: 01/21/2021 CHIEF COMPLAINT: PEG tube malfunction. HISTORY OF PRESENT ILLNESS: This is a 75-year-old female with a feeding tube, brought in by ambulance from [facility] due to malfunctioning feeding tube. Patient denies any fever, chills, nausea, vomiting, abdominal pain, chest pain, shortness of breath, lightheadedness, dizziness, malaise, skin rashes, diarrhea or constipation and has had no other issues. CT in the Emergency Room shows a feeding tube that is dislodged with retention device in the anterior abdominal wall and epigastric region surrounding with some soft tissue gas with small bilateral pleural effusions, benign duodenal lipoma and adjacent soft tissue emphysema. According to surgeon on-call, Dr. Banks, patient should be admitted for feeding tube replacement on Thursday since she is on an anticoagulant, this is to be held for 48 hours. Patient is to be given empiric antibiotics to cover intraabdominal organisms and to keep her with a nasogastric tube for tube feedings and medications. Hospitalist was called to admit the patient as an inpatient. PAST MEDICAL HISTORY: 1. Chronic kidney disease Stage III. 2. 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 3. Chronic anemia. 4. CKD Stage III. 5. Diabetes. 6. History of DVT. 7. Hyperlipidemia. 8. Depression. 9. Hypertension. 10.Asthma. 11.Prior exposure to coronavirus-19. 12.Diastolic congestive heart failure. 13.Gait instability and falls. PAST SURGICAL HISTORY: 1. Feeding tube. 2. Gastrostomy tube placement. 3. Right breast lumpectomy. 4. Tubal ligation. 5. Right chest tube. 6. Bilateral cataract surgery. 7. Right PleurX catheter placement. SOCIAL HISTORY: Lives in [place], . Daughter, Mona. 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 No alcohol or recreational drug use. No tobacco abuse. FAMILY HISTORY: father with liver disease, mother with GI bleed. Daughter has multiple sclerosis. ALLERGIES: Adhesive tape, Exenatide. HOME MEDICATIONS: 1. Acetaminophen 650 q. 8 as needed. 2. Aspirin 81 q.h.s. 3. Vitamin D 1000 units q.h.s. 4. Collagenase topically daily. 5. Lasix 40 daily. 6. Insulin sliding scale. 7. Lisinopril 20 q.h.s. 8. Xarelto 20 via PEG tube q.h.s. 9. Simvastatin 20 mg feeding tube. REVIEW OF SYSTEMS: Per HPI. A 12 point system otherwise negative. PHYSICAL EXAMINATION: VITAL SIGNS: Pulse 76, afebrile, respiratory rate 16, blood pressure 175/78, 95% on room air. GENERAL: Awake, alert and oriented to person, place and time, lying at 30 degrees on a stretcher in the Emergency Room, no distress. HEENT: No icterus or jaundice. Face is symmetric. Tongue is midline. NECK: No JVD or thyromegaly. CHEST: Feeding tube in the left side, appears clean and dry without erythema. No tenderness. No discharge. LUNGS: Clear to auscultation. No wheezing, rales or rhonchi. HEART: S1 and S2. Regular rate and rhythm. ABDOMEN: Soft, nontender, feeding tube in place without erythema or tenderness. EXTREMITIES: No cyanosis or clubbing. Bilateral 1+ pitting edema. Chronic skin tears. ASSESSMENT AND PLAN: A 75-year-old female with a history of invasive ductal carcinoma of the right breast with metastatic lesions to the lung pleura right greater than left diagnosed in 2002, status post lumpectomy, chemoradiation, on hormone therapy, with recurrent malignant pleural effusion with PleurX catheter on the right, anemia of chronic disease due to renal failure, CKD Stage III, diabetes, hypertension, diastolic congestive heart failure, currently with a feeding tube that is malfunctioning. The patient will be admitted. Patient has been taken off of Xarelto for her history of DVT for PEG tube replacement on Thursday, General Surgery has been consulted and recommended IV antibiotics for intraabdominal coverage. IMPRESSION: 1. PEG tube malfunction. Hold patient's Xarelto for 48 hours. Patient is to be NPO for nasogastric tube placement and resume all medications except for Xarelto. Per general surgeon, Dr. Banks, patient is to be started on IV antibiotics for now for intraabdominal coverage. 2. History of right breast metastatic cancer and hormone therapy with chronic malignant pleural effusion with PleurX catheter. 3. Chronic kidney disease Stage III. Monitor patient's I and O's and daily creatinine. Avoid nephrotoxins and renally dose all medications. 4. Hypertension, uncontrolled, due to inability to administer medications if needed nasogastric tube, resume all home meds through the nasogastric tube. 5. Diastolic heart failure, monitor while on IV fluids x1 liter until the nasogastric tube can be placed. 6. Type 2 diabetes, insulin sliding scale q. 6 hourly with coverage. Hypoglycemic protocol. NG tube to be placed and tube feedings to be restarted per undercoater recommendation. 7. DVT prophylaxis with compression stockings for now, hold off on Xarelto. History of DVT, hold off on Xarelto due to planned PEG tube placement on Thursday. MTDD
[2021-01-22] MEDS ORDERED: FUROSEMIDE 40 MG TAB NG SCH (09:00)
[2021-01-22] MEDS ORDERED: OMEPRAZOLE SUSPENSION 20MG 10ML ORAL SYRINGE GT SCH (09:00)
--- NOTE | 2021-01-22 14:18 | CR.PDOC ---
General Date of Consultation: Jan 22, 2021 Attending Physician: RODOLFO BANKS MD Consultation General surgery. Dr. Banks HISTORY OF PRESENT ILLNESS: The patient is a 75-year-old female status post PEG tube placement as per Dr. Holder 01/08/2021 who was brought to the emergency department 01/21/2021 from [facility] related to malfunctioning feeding tube. Imaging in the emergency department indicated feeding tube was dislodged with retention device in the anterior abdominal wall. The patient was admitted to the hospitalist for empiric antibiotic and the patient is on anticoagulants so this will be held prior to the replacement of the feeding tube. ALLERGIES: Please see below. HOME MEDICATIONS: Please see below. PAST MEDICAL HISTORY: Chronic kidney disease Stage III. 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 Chronic anemia. CKD Stage III. Diabetes. History of DVT. Hyperlipidemia. Depression. Hypertension. Asthma. Prior exposure to coronavirus-19. Diastolic congestive heart failure. Gait instability and falls. PAST SURGICAL HISTORY: Gastrostomy tube placement. Right breast lumpectomy. Tubal ligation. Right chest tube. Bilateral cataract surgery. Right PleurX catheter placement. FAMILY HISTORY: father with liver disease, mother with GI bleed. Daughter has multiple sclerosis. SOCIAL HISTORY: Non-smoker REVIEW OF SYSTEMS: As noted in HPI otherwise 10 point review of systems unremarkable. PHYSICAL EXAMINATION: VITAL SIGNS: Afebrile, VSS GENERAL APPEARANCE: No acute distress, sitting up on the stretcher awake and alert, oriented x3 HEENT:MMM RESPIRATORY: Clear to auscultation CARDIOVASCULAR: S1-S2 regular ABDOMEN: Feeding tube has been removed, there is green drainage expressed from the wound and noted on the dressing, this was thoroughly cleaned, dry dressing is reapplied. EXTREMITIES: No edema Wound culture from previous PEG tube site pending WBC 7.3, hemoglobin 9.5, platelets 219 CRP 11.20 ASSESSMENT/PLAN: Status post PEG tube placement as per Dr. Holder 01/08/2021. Found to be dislodged on admission and removed as per Dr. Banks. The patient is reviewed and examined as per Dr. Banks at this morning. Wound culture of previous PEG tube site pending. CRP 11.20 Plan to monitor previous PEG tube site over the next 1 to 2 days and consider reinserting PEG tube. Consider PPN in the meantime, discussed with hospitalist. IV antibiotics as per hospitalist Laura on hold. Vital Signs/I&O Vital Signs Date Time Temp Pulse Resp B/P (MAP) Pulse Ox O2 Delivery O2 Flow Rate FiO2 01/22/21 10:09 77 16 129/63 (85) 95 Room Air 01/22/21 06:44 98.3 I&O- Last 24 Hours up to 6 AM 01/22/21 06:00 Output Total 500 ml Balance -500 ml Laboratory Data Labs 24H Laboratory Tests 2 01/21/21 14:50: Nucleated Red Blood Cells % (auto) 0.0, Anion Gap 6L, Glomerular Filtration Rate > 60.0, Calcium Level 8.5L 01/21/21 18:03: Coronavirus (COVID-19)(PCR) NEGATIVE, Influenza Type A (RT-PCR) NEGATIVE, Influenza Type B (RT-PCR) NEGATIVE, Respiratory Syncytial Virus (PCR) NEGATIVE 01/21/21 21:03: Bedside Glucose (Misc Panel) 262H 01/22/21 00:04: Nucleated Red Blood Cells % (auto) 0.0, Activated Partial Thromboplast Time 32.1 01/22/21 02:14: Urine Color YELLOW, Urine Appearance HAZY, Urine pH 7.0, Urine Specific [place] 1.014, Urine Protein 3+H, Urine Glucose (UA) 3+H, Urine Ketones NEGATIVE, Urine Blood NEGATIVE, Urine Nitrite POSITIVEH, Urine Bilirubin NEGATIVE, Urine Urobilinogen 4.0H, Urine Leukocyte Esterase 2+H, Urine WBC (Auto) 31H, Urine RBC (Auto) 2, Urine Hyaline Casts (Auto) 0, Urine Bacteria (Auto) NEGATIVE, Urine Squamous Epithelial Cells 1, Urine Sperm (Auto) 01/22/21 03:59: Bedside Glucose (Misc Panel) 371H 01/22/21 05:36: Immature Granulocyte % (Auto) 1.9, Neutrophils (%) (Auto) 74.5H, Lymphocytes (%) (Auto) 16.0L, Monocytes (%) (Auto) 7.2, Eosinophils (%) (Auto) 0.1, Basophils (%) (Auto) 0.3, Neutrophils # (Auto) 5.4, Lymphocytes # (Auto) 1.2L, Monocytes # (Auto) 0.5, Eosinophils # (Auto) 0.0, Basophils # (Auto) 0.0, Nucleated Red Blood Cells % (auto) 0.0, Activated Partial Thromboplast Time 71.7H, Anion Gap 6L, Glomerular Filtration Rate > 60.0, Calcium Level 7.8L, C-Reactive Protein, Quantitative 11.20H 01/22/21 06:48: Bedside Glucose (Misc Panel) 378H 01/22/21 08:24: Bedside Glucose (Misc Panel) 304H 01/22/21 10:49: Activated Partial Thromboplast Time 52.7H 01/22/21 12:12: Bedside Glucose (Misc Panel) 261H CBC/BMP Laboratory Tests 01/21/21 14:50 01/22/21 00:04 01/22/21 05:36 Microbiology Microbiology 01/22/21 Urine Culture, Received Pending Allergies Coded Allergies: adhesive tape (Verified Allergy, Intermediate, rash, 12/14/20) exenatide (Verified Adverse Reaction, Mild, itching, 12/25/20) Home Medications Scheduled Aspirin (Aspirin) 81 Mg Tab.chew, 81 MG PEG QHS, (Reported) Collagenase Clostridium Hist. (Santyl) 30 Gm Oint...g., 0 DOSE TOP DAILY, #30 Furosemide (Furosemide) 40 Mg Tablet, 40 MG PEG DAILY, (Reported) Insulin Glargine,Hum.rec.anlog (Basaglar Kwikpen U-100) 100 Unit/1 Ml Insuln.pen, 30 UNIT SC QHS, (Reported) Insulin Human Lispro (Humalog) 100 Unit/1 Ml Vial, 1 DOSE SC Q6H, (Reported) PER SLIDING SCALE Lisinopril (Lisinopril) 20 Mg Tablet, 20 MG NG DAILY for 30 Days, #30 Simvastatin (Simvastatin) 20 Mg Tablet, 20 MG NG QHS, #30 [Prilosec Suspension] , 20 ML PEG BID, (Reported) Scheduled PRN Acetaminophen (Tylenol) 325 Mg Tablet, 650 MG PEG Q8H PRN for PAIN LEVEL 1-6, (Reported) Attending Note Attending Note Patient was seen in the emergency room. I reviewed the CT imaging and this shows that the internal bumper of the PEG tube eis actually located in the subcutaneous tissues and not inside the stomach. Its not clear how long this has been like that as she was seen in the ER roughly 3 days ago with abdominal pain and purulent drainage and how much have they been feeding her with the tube actually out of the stomach. I pulled the gastrostomy tube out and I got bilious/purulent fluid drain out. There is about a 5 cm circumferential subcutaneous tissue induration, but minimal overlying skin cellulitis. Patient has no signs of severe systemic inflammatory response, nor peritonitis or necrotizing soft tissue infection. Impression and Plan dislodged feeding tube soft tissue infection and abscess from dislodged feeding tube dysphagia I spoke to the patient, likewise her hospitalist provider. I advised keeping her npo and observe the course of the subcutaneous abscess. This might need wider debridement or further opening up the wound to allow for better drainage. Keep her NPO and observe for persistent bilious drainage which may signify gastrocutaneous fistula. I am expecting the wound openign to close within a few days to a week if the abscess is properly drained. Hold xarelto for possible need of surgical intervention If wound and abscess imrpoves and eventual closure of gastrocutaneous fistula, I will replace the feeding tube endoscopically Consider PPN/TPN Atiya Joe Jan 22, 2021 14:18 RODOLFO BANKS MD Feb 13, 2021 12:50
--- NOTE | 2021-01-22 14:46 | IPNPDOC ---
Text Note Date of Service The patient was seen on 01/22/21. NOTE Subjective: Patient is a 75-year-old female with a PMHx of HTN, Diastolic CHF, Hx of DVT (on Xarelto), DM2, DLP, CKD3, Asthma, Right breast CA (Dx 2002, metastasis to lungs / pleural space bilaterally; s/p Lumpectomy, Chemotherapy, & Radiation, on Hormonal therapy), Feeding tube, Chronic anemia who presented to the emergency room after she had a malfunction of her feeding tube. Patient was admitted to the hospital service for further evaluation, treatment, and general surgery was called on consultation. Patient was seen and examined at the bedside. Currently patient reports that they feel relatively fine. Denies any chest pain, shortness breath, palpitations. Reports some nausea without vomiting. Denies any abdominal discomfort pain, diarrhea, or urinary discomfort. Objective: Vitals (See below) General: Lying in bed, no acute distress, comfortable, AAOx3 HEENT: NC, AT CVS: +S1S2 Lungs: Fair air entry b/l, -w/r/r Abdomen: Soft, ND, NT, + Dressing with evidence of biliary material Extremities: - Edema, - Calf tenderness Skin: Unstagable pressure ulcer at R lateral knee / RLQ of abdomen, Stage 2 pressure ulcer at sacrum Imaging: CT abdomen / pelvis 01/21: Small bilateral pleural effusions. Stable low-density liver lesion. Benign duodenal lipoma. Anteriorly dislodged gastrostomy tube with the retention balloon residing in the abdominal wall. There is some adjacent soft tissue emphysema. CXR 01/21: There is no significant change from the prior exam other than technique. Although reason for exam indicates nasogastric tube placement there is no nasogastric tube. Vascular US 01/21: There is a small amount of thrombus along the margin of the right popliteal vein. CXR 01/21: The nasogastric tube is coiled in the upper esophagus and should be redirected. CXR 01/21: Nasogastric tube coiled in the stomach with the tip directed cephalad in the distal esophagus. Assessment and plan: PEG tube malfunction - Patient is currently strict nothing by mouth - Patient has had NG tube placed. However, has refused subsequent insertions after it came out - Will reattempt NG tube placement - Gen. surgery has been called on consultation; plan for PEG tube reinsertion in approximately 48 hours - c/w Zosyn (Day #2) for intra-abdominal coverage - Will start peripheral parenteral nutrition Multiple pressure ulcers - Will have evaluation with general surgery for likely debridement - Will place advanced wound care consult with Dr. Looney - Will check MRSA screen - c/w Abx (Day #2) - see above Hx of Breast CA (Stage IV) - Metastasis to lung and bilateral pleural space - s/p lumpectomy, chemotherapy and radiation - Currently on hormonal therapy - Compensated with malignant pleural effusion s/p Pleurx catheter CKD3 - Cr appears to be at baseline HTN - BP well controlled - Unable to provide feeding tube medications Diastolic CHF - No evidence of fluid overload DM2 - c/w ISS q6h Hx of DVT - Imaging confirmed DVT - Will DC Heparin drip; s/p Xarelto - Will start Lovenox GERD - c/w Omeprazole DVT prophylaxis - c/w Heparin drip Disposition: - Awaiting PEG tube reinsertion with general surgery VS,Rylie, I+O VS, Tristonbone, I+O Laboratory Tests 01/21/21 14:50 01/22/21 00:04 01/22/21 05:36 Vital Signs Date Time Temp Pulse Resp B/P (MAP) Pulse Ox O2 Delivery O2 Flow Rate FiO2 01/22/21 10:09 77 16 129/63 (85) 95 Room Air 01/22/21 06:44 98.3 I&O- Last 24 Hours up to 6 AM 01/22/21 06:00 Output Total 500 ml Balance -500 ml EMMA LEON MD Jan 22, 2021 14:46
[2021-01-22] MEDS ORDERED: KCL 10MEQ/100ML SWI (KRUN) 10 MEQ in IV 1 EA IV ONE (14:50)
[2021-01-22] MEDS: PANTOPRAZOLE 40MG VIAL (C9113 PER 1) IV SCH (16:19)
[2021-01-22 17:30] VITALS: BP 176/87
[2021-01-22] MEDS ORDERED: FAT EMULSION IV 20% 500 ML IV SCH (18:00)
[2021-01-22] MEDS: ENOXAPARIN 80MG/0.8ML SYRINGE (J1650 PER 10MG) SC SCH (18:51)
[2021-01-22] MEDS: AMINO AC/ELECTROLYTE/DEX/CALC 1,000 ML IV SCH (18:51)
[2021-01-22 22:12] VITALS: BP 174/87
[2021-01-23] MEDS: NITROGLYCERIN 2% OINT 1 GM *U/D* PKT TOP SCH ×4 (03:45→21:00)
[2021-01-23] MEDS: ENOXAPARIN 80MG/0.8ML SYRINGE (J1650 PER 10MG) SC SCH ×2 (03:45→17:52)
[2021-01-23] MEDS: PIPERACILLIN/TAZOBACTAM SOD 2.25 GM in D5W MINI-BAG PLUS 50 ML IV SCH ×4 (03:48→21:59)
[2021-01-23 05:13] VITALS: BP 171/82
[2021-01-23] MEDS: HumaLOG INSULIN (NovoLOG) PER UNIT SC SCH ×3 (05:38→17:52)
[2021-01-23 07:30] LABS: BASO % 0.4 % (0.0-1.0); HEMATOCRIT 30.5 % (36.0-47.0); HEMOGLOBIN 9.8 g/dl (12.0-15.5); LYMPH # 1.3 10^3/uL (1.5-5.0); MEAN CORPUSCULAR HEMOGLOBIN 29.9 pg (27.0-33.0); MEAN CORPUSCULAR HGB CONC 32.1 g/dl (32.0-36.5); MONO # 0.5 10^3/uL (0.0-0.8); MONO % 7.3 % (2.0-8.0); NEUTROPHILS # 5.2 10^3/uL (1.5-8.5); NEUTROPHILS % 72.1 % (36.0-66.0); PLATELET COUNT, AUTOMATED 254 10^3/uL (150-450); RED BLOOD COUNT 3.28 10^6/uL (4.00-5.40); WHITE BLOOD COUNT 7.2 10^3/uL (4.0-10.0)
[2021-01-23 07:46] LABS: CREATININE FOR GFR 0.97 MG/DL (0.55-1.30); GLOMERULAR FILTRATION RATE 59.4 (>39); POTASSIUM SERUM 3.2 MEQ/L (3.5-5.1)
[2021-01-23 08:09] LABS: C REACTIVE PROTEIN QUANTITATIV 7.53 MG/DL (0.00-0.30)
[2021-01-23] MEDS ORDERED: LIDOCAINE 1% MDV 50ML VIAL SC ONE (08:50)
[2021-01-23] MEDS: AMINO AC/ELECTROLYTE/DEX/CALC 1,000 ML IV SCH (10:09)
[2021-01-23] MEDS: PANTOPRAZOLE 40MG VIAL (C9113 PER 1) IV SCH (10:10)
--- NOTE | 2021-01-23 10:41 | IPNPDOC ---
Text Note Date of Service The patient was seen on 01/23/21. NOTE Subjective: Patient is a 75-year-old female with a PMHx of HTN, Diastolic CHF, Hx of DVT (on Xarelto), DM2, DLP, CKD3, Asthma, Right breast CA (Dx 2002, metastasis to lungs / pleural space bilaterally; s/p Lumpectomy, Chemotherapy, & Radiation, on Hormonal therapy), Feeding tube, Chronic anemia who presented to the emergency room after she had a malfunction of her feeding tube. Patient was admitted to the hospital service for further evaluation, treatment, and general surgery was called on consultation. Patient was seen and examined at the bedside. Patient denies any CP, SOB or palpitations. Reports no nausea or vomiting. Reports some abdominal discomfort around the prior PEG tube site. Denies any diarrhea or burning with urination. Objective: Vitals (See below) General: Patient is lying in bed, appears to be comfortable without any acute distress, is awake, alert HEENT: Normocephalic and atraumatic CVS: +S1S2 Lungs: Fair air entry b/l, no evidence of wheezing, rales or rhonchi Abdomen: Soft, nondistended, nontender, epigastric area with dressing in place saturated with pus/bile, RLQ with dressing over pressure ulcer Extremities: No evidence of edema Skin: Unstagable pressure ulcer at R lateral knee / RLQ of abdomen, Stage 2 pressure ulcer at sacrum Imaging: CT abdomen / pelvis 01/21: Small bilateral pleural effusions. Stable low-density liver lesion. Benign duodenal lipoma. Anteriorly dislodged gastrostomy tube with the retention balloon residing in the abdominal wall. There is some adjacent soft tissue emphysema. CXR 01/21: There is no significant change from the prior exam other than technique. Although reason for exam indicates nasogastric tube placement there is no nasogastric tube. Vascular US 01/21: There is a small amount of thrombus along the margin of the right popliteal vein. CXR 01/21: The nasogastric tube is coiled in the upper esophagus and should be redirected. CXR 01/21: Nasogastric tube coiled in the stomach with the tip directed cephalad in the distal esophagus. Assessment and plan: PEG tube malfunction - Patient is currently strict nothing by mouth - Patient has had NG tube placed. However, has refused subsequent insertions after it came out - General surgery has been called on consultation; plan for debridement of area within 24-48 hours followed by PEG tube reinsertion in 7 days - c/w Zosyn (Day #3) for intra-abdominal coverage - c/w peripheral parenteral nutrition Multiple pressure ulcers - Will place advanced wound care consult with Dr. Looney - Will check MRSA screen - Will consult Plastic surgery for likely additional debridement - c/w Abx - see above Hx of Breast CA (Stage IV) - Metastasis to lung and bilateral pleural space - s/p lumpectomy, chemotherapy and radiation - Currently on hormonal therapy - Complicated with malignant pleural effusion s/p Pleurx catheter; no significant effusion on imaging noted Hypokalemia - Will supplement via IV today CKD3 - Cr appears to be at baseline HTN - BP well controlled - c/w Nitroglycerin ointment - Unable to provide feeding tube medications Diastolic CHF - No evidence of fluid overload - Furosemide discontinued for now DM2 - c/w ISS q6h Hx of DVT - Imaging confirmed DVT - Will DC Heparin drip; s/p Xarelto - c/w Lovenox therapeutic dosing GERD - c/w Protonix IV DVT prophylaxis - c/w Lovenox therapeutic Disposition: - Awaiting PEG tube reinsertion with general surgery VS,Fishbone, I+O VS, Fishbone, I+O Laboratory Tests 01/23/21 06:38 Vital Signs Date Time Temp Pulse Resp B/P (MAP) Pulse Ox O2 Delivery O2 Flow Rate FiO2 01/23/21 10:10 169/80 01/23/21 05:13 98.4 92 18 96 Room Air I&O- Last 24 Hours up to 6 AM 01/23/21 06:00 Intake Total 1398 ml Balance 1398 ml EMMA LEON MD Jan 23, 2021 10:41
[2021-01-23] MEDS: KCL 10MEQ/100ML SWI (KRUN) 10 MEQ in IV 1 EA IV SCH ×6 (11:00→20:54)
[2021-01-23] MEDS ORDERED: LIDOCAINE 1% MDV 20ML VIAL SC ONE (11:50)
[2021-01-23 14:00] VITALS: BP 150/76
[2021-01-23] MEDS ORDERED: LIDOCAINE 1% MDV 20ML VIAL As Ordered ONE (15:11)
--- NOTE | 2021-01-23 16:32 | REP ---
INDICATION: TPN nutrition. COMPARISON: None. TECHNIQUE: The procedure was performed under the direct supervision of Dr. Braun. The risks and benefits of the procedure were explained to the patient and informed consent was obtained. The left basilic vein was localized using ultrasound guidance. The skin was prepped and draped in a sterile fashion. 1 mL of 1% lidocaine was used as a local anesthetic. Using ultrasound guidance the basilic vein was cannulated and a 0.018 guidewire was inserted and advanced to the SVC using fluoroscopic guidance, and last image hold technology. The needle was removed and a 5 Nauruan dilator and peel-away sheath was inserted over the guide wire. A 5 Nauruan dual lumen catheter was cut to length of 44 cm. The dilator was removed and the catheter was inserted over the guide wire with the tip ending in the SVC. The peel-away sheath was removed and the catheter was flushed with heparinized saline as per Hospital protocol. The catheter was affixed to the skin and a sterile dressing was applied. Estimated blood loss: Less than 1 cc The patient tolerated the procedure well and there were no immediate complications. 0.2 minutes of fluoro time was utilized for this procedure. FINDINGS: None IMPRESSION: PICC line insertion left basilic vein with the tip ending in the SVC. <Electronically signed by Theo Elder > 01/23/21 [id number] <Electronically signed by Damien Braun > 01/23/21 [id number]
[2021-01-23 17:05] VITALS: BP 155/85
[2021-01-23] MEDS ORDERED: AMINO AC/ELECTROLYTE/DEX/CALC 2,000 ML IV SCH ×2 (18:00→18:42)
[2021-01-23] MEDS ORDERED: MULTIVITAMIN -ADULT INJECTION 10 ML, CR/CU/SE/MN/ZN INJ 1 ML in AMINO AC/ELECTROLYTE/DE... IV SCH (18:00)
[2021-01-23] MEDS ORDERED: FAT EMULSION IV 20% 500 ML IV SCH (18:00)
[2021-01-23 18:55] VITALS: BP 109/65
[2021-01-23 22:00] VITALS: BP 118/65
[2021-01-24] MEDS: HumaLOG INSULIN (NovoLOG) PER UNIT SC SCH ×4 (00:15→18:42)
[2021-01-24] MEDS: NITROGLYCERIN 2% OINT 1 GM *U/D* PKT TOP SCH ×4 (03:00→20:59)
[2021-01-24] MEDS: PIPERACILLIN/TAZOBACTAM SOD 2.25 GM in D5W MINI-BAG PLUS 50 ML IV SCH ×4 (03:06→20:58)
[2021-01-24] MEDS: ENOXAPARIN 80MG/0.8ML SYRINGE (J1650 PER 10MG) SC SCH ×2 (03:07→15:02)
[2021-01-24] MEDS: SODIUM CHLORIDE 0.9% INJ 10 ML SYR IV SCH ×2 (05:46→18:00)
[2021-01-24 06:00] VITALS: BP 128/65
[2021-01-24 07:13] LABS: BASO % 0.6 % (0.0-1.0); EOS % 0.1 % (0.0-3.0); HEMATOCRIT 31.9 % (36.0-47.0); HEMOGLOBIN 10.1 g/dl (12.0-15.5); LYMPH # 1.2 10^3/uL (1.5-5.0); LYMPH % 16.9 % (24.0-44.0); MEAN CORPUSCULAR HEMOGLOBIN 29.5 pg (27.0-33.0); MEAN CORPUSCULAR HGB CONC 31.7 g/dl (32.0-36.5); MEAN CORPUSCULAR VOLUME 93.3 fl (80.0-96.0); MONO # 0.5 10^3/uL (0.0-0.8); MONO % 7.7 % (2.0-8.0); NEUTROPHILS # 4.9 10^3/uL (1.5-8.5); NEUTROPHILS % 71.4 % (36.0-66.0); PLATELET COUNT, AUTOMATED 260 10^3/uL (150-450); RED BLOOD COUNT 3.42 10^6/uL (4.00-5.40); WHITE BLOOD COUNT 6.9 10^3/uL (4.0-10.0)
[2021-01-24 07:31] LABS: CALCIUM LEVEL 8.1 MG/DL (8.8-10.2); CREATININE FOR GFR 1.06 MG/DL (0.55-1.30); GLOMERULAR FILTRATION RATE 53.7 (>39); POTASSIUM SERUM 3.4 MEQ/L (3.5-5.1)
[2021-01-24] MEDS ORDERED: LIDOCAINE 1% MDV 50ML VIAL SC ONE (09:30)
[2021-01-24] MEDS: PANTOPRAZOLE 40MG VIAL (C9113 PER 1) IV SCH (10:11)
--- NOTE | 2021-01-24 10:27 | CR.PDOC ---
Plastic Surgery Consultation Date of Consultation 01/24/21 History and Physical CONSULT REPORT FOR: Medical team REASON FOR CONSULTATION: Pressure wound right lower abdomen, hip, knee. And sacral wound. HISTORY OF PRESENT ILLNESS: This is a 75-year-old female who is well-known to our service. Patient admitted for dislodged PEG tube. Plastics called to evaluate pressure wounds on her right lower abdomen/right hip, right lateral knee and sacrum. Patient was seen on her initial admission previously for the right hip/abdomen/right knee wounds and was treated by debridement and Santyl. She was transferred to rehab facility and now she is back for another evaluation. The wounds on right hip/lower abdomen are improving however necr otic tissue still present. Right lateral knee has dry eschar. There is a new sacral wound. Patient states she has no pain in any of those wounds. PAST MEDICAL HISTORY: Breast cancer. Malignant pleural effusion. DVT. Hypertension. Diabetes mellitus. PAST SURGICAL HISTORY: Breast surgery. PEG placement PREVIOUS ANESTHESIA REACTIONS: Denies ALLERGIES: Please see below. FAMILY HISTORY: Noncontributory HOME MEDICATIONS: Please see below. REVIEW OF SYSTEMS: GENERAL: Denies chills, reports weight gain,. HEENT: Denies blurred vision and double vision. Denies ear symptoms. Denies hoarseness. NECK: Denies any neck pain]. CARDIOVASCULAR: Denies chest pain and palpitations. MUSCULOSKELETAL: Denies arthralgias, back pain and thrombophlebitis. SKIN: Denies rash. Pressure wounds NEUROLOGIC: Denies headache, stroke and transient ischemic attack. PSYCHIATRIC: Denies anxiety and depression. ENDOCRINE: Denies thyroid disease. HEMATOLOGY/ONCOLOGY: Denies bleeding or clotting disorder. HEART: Denies any chest pains, palpitations, paroxysmal dyspnea, orthopnea. PULMONARY: Denies chronic cough, dyspnea and wheezing. GASTROINTESTINAL: Denies rectal bleeding, family history of colon cancer, constipation, diarrhea, dysphagia, heartburn and jaundice. GENITOURINARY: Denies dysuria, frequency, hematuria and nocturia. ENDOCRINE: Denies polydipsia, polyphagia, polyuria, heat or cold intolerance. INFECTIOUS: Denies any recent upper respiratory tract infection, UTI, need for use of antibiotics. NUTRITION: Reports good appetite. PHYSICAL EXAMINATION: VITALS SIGNS: Please see below. GENERAL APPEARANCE:Patient seen, laying in bed, awake, alert, and oriented. Comfortable, in no acute distress. SKIN: Warm and moist. Right lower abdomen/right hip stage III wound measures 11 x 7 x 0.5 cm cluster with 30% skin, 60% yellow necrosis, 10% pink granulation tissue. Right knee stage III wound measures 6 x 4 cm cluster 20% skin 80% dry eschar. Completely dry. No drainage, no odor. Sacrum stage III wound measures 3 x 1.5 x 0.3 cm with 80% granulation 20% yellow necrosis. Surrounded by DTI. LUNGS: Clear to auscultation bilaterally. No wheezing appreciated. HEART: No chest wall abnormalities. Regular rate and rhythm with no murmurs appreciated. ABDOMEN: Abdomen is soft, non-tender, non-distended. EXTREMITIES: Extremities have no deformities. No edema identified. No calf tenderness. LABORATORY DATA: Please see below. IMPRESSION: Pressure wounds right hip/lower abdomen stage III, right lateral knee stage III, sacrum stage III. Unstageable right heel. PLANS: Recommend bedside debridement for right hip/lower abdomen stage III wound. Santyl daily and as needed to right hip lower abdomen, and sacrum wounds. Betadine paint daily to right lateral knee cover with dry dressing. Heel wound please consult podiatry. Procedure: Patient is alert and oriented and aware of her surroundings. She is giving verbal consent for debridement of right hip lower abdomen wound. After obtain ing informed consent timeout was taken. Lidocaine 1% was infiltrated in the area total of 3 cc. Wound was prepped and draped in the usual sterile fashion. Excisional debridement was done using 15 blade scalpel subcutaneous tissue was removed. Minimal bleeding was controlled with pressure. Patient tolerated procedure well. New sterile dressing applied. We will follow the patient. Vital Signs Vital Signs Date Time Temp Pulse Resp B/P (MAP) Pulse Ox O2 Delivery O2 Flow Rate FiO2 01/24/21 10:13 140/65 01/24/21 06:00 98.3 84 19 97 Room Air I&Os I&O- Last 24 Hours up to 6 AM 01/24/21 06:00 Intake Total 919 ml Balance 919 ml Laboratory Data Labs 24H Laboratory Tests 2 01/23/21 11:35: Bedside Glucose (Misc Panel) 300H 01/23/21 12:31: Methicillin-Resist S.aureus DNA PCR NOT DETECTED 01/23/21 17:36: Bedside Glucose (Misc Panel) 274H 01/24/21 00:08: Bedside Glucose (Misc Panel) 346H 01/24/21 05:39: Bedside Glucose (Misc Panel) 370H 01/24/21 06:30: Immature Granulocyte % (Auto) 3.3H, Neutrophils (%) (Auto) 71.4H, Lymphocytes (%) (Auto) 16.9L, Monocytes (%) (Auto) 7.7, Eosinophils (%) (Auto) 0.1, Basophils (%) (Auto) 0.6, Neutrophils # (Auto) 4.9, Lymphocytes # (Auto) 1.2L, Monocytes # (Auto) 0.5, Eosinophils # (Auto) 0.0, Basophils # (Auto) 0.0, Nucleated Red Blood Cells % (auto) 0.0, Anion Gap 6L, Glomerular Filtration Rate 53.7, Calcium Level 8.1L CBC/BMP Laboratory Tests 01/24/21 06:30 Microbiology Microbiology 01/22/21 Urine Culture - Final, Complete Home Medications Scheduled Aspirin (Aspirin) 81 Mg Tab.chew, 81 MG PEG QHS, (Reported) Furosemide (Furosemide) 40 Mg Tablet, 40 MG PEG DAILY, (Reported) Insulin Glargine,Hum.rec.anlog (Basaglar Kwikpen U-100) 100 Unit/1 Ml Insuln.pen, 30 UNIT SC QHS, (Reported) Insulin Human Lispro (Humalog) 100 Unit/1 Ml Vial, 1 DOSE SC Q6H, (Reported) PER SLIDING SCALE [Prilosec Suspension] , 20 ML PEG BID, (Reported) Scheduled PRN Acetaminophen (Tylenol) 325 Mg Tablet, 650 MG PEG Q8H PRN for PAIN LEVEL 1-6, (Reported) Allergies Coded Allergies: adhesive tape (Verified Allergy, Intermediate, rash, 12/14/20) exenatide (Verified Adverse Reaction, Mild, itching, 12/25/20) JORI KIRAN DO Jan 24, 2021 10:27
--- NOTE | 2021-01-24 10:31 | IPNPDOC ---
Text Note Date of Service The patient was seen on 01/24/21. NOTE Subjective: Patient is a 75-year-old female with a PMHx of HTN, Diastolic CHF, Hx of DVT (on Xarelto), DM2, DLP, CKD3, Asthma, Right breast CA (Dx 2002, metastasis to lungs / pleural space bilaterally; s/p Lumpectomy, Chemotherapy, & Radiation, on Hormonal therapy), Feeding tube, Chronic anemia who presented to the emergency room after she had a malfunction of her feeding tube. Patient was admitted to the hospital service for further evaluation, treatment, and general surgery was called on consultation. Patient was seen and examined at the bedside. Patient appears to be comfortable laying in bed. Denies any CP, SOB or palpitations. Denies any significant abdominal pain, C/D or urinary discomfort. Objective: Vitals (See below) General: Patient is lying in bed, appears to be comfortable, is awake and alert HEENT: AT, NC CVS: +S1S2 Lungs: There appears to be fair bilaterally without evidence of wheezing, crackles or rhonchi Abdomen: Abdomen soft, nondistended, nontender. Area of prior PEG tube reveals plus drainage right lower quadrant with pressure ulcer Extremities: No lower extremity edema is noted Skin: Residual pressure ulcers noted again a right lower quadrant and right lateral knee, stage II pressure ulcer of sacrum Imaging: CT abdomen / pelvis 01/21: Small bilateral pleural effusions. Stable low-density liver lesion. Benign duodenal lipoma. Anteriorly dislodged gastrostomy tube with the retention balloon residing in the abdominal wall. There is some adjacent soft tissue emphysema. CXR 01/21: There is no significant change from the prior exam other than technique. Although reason for exam indicates nasogastric tube placement there is no nasogastric tube. Vascular US 01/21: There is a small amount of thrombus along the margin of the right popliteal vein. CXR 01/21: The nasogastric tube is coiled in the upper esophagus and should be redirected. CXR 01/21: Nasogastric tube coiled in the stomach with the tip directed cephalad in the distal esophagus. Assessment and plan: PEG tube malfunction - Will c/w NPO status - Area prior PEG tube reveals plus drainage - General surgery has been called on consultation; plan for debridement of area within 24-48 hours followed by PEG tube reinsertion in 7 days - c/w Zosyn (Day #4) for intra-abdominal coverage - c/w peripheral parenteral nutrition Multiple pressure ulcers - MRSA screen negative - c/w dressing changes as ordered - Advanced wound care consult with Dr. Looney - Plastic surgery on consultation; appreciate their input - c/w Abx - see above Hx of Breast CA (Stage IV) - Metastasis to lung and bilateral pleural space - s/p lumpectomy, chemotherapy and radiation - Currently on hormonal therapy - Complicated with malignant pleural effusion s/p Pleurx catheter; no significant effusion on imaging noted Hypokalemia - Will again supplement via IV route CKD3 - Cr appears to be at baseline HTN - BP well controlled - c/w Nitroglycerin ointment - Unable to provide feeding tube medications Diastolic CHF - No evidence of fluid overload - Furosemide discontinued for now DM2 - c/w ISS q6h RLE DVT / Hx of DVT - Imaging confirmed DVT again - s/p Heparin drip; s/p Xarelto - c/w Lovenox therapeutic dosing GERD - c/w Protonix IV DVT prophylaxis - c/w Lovenox therapeutic Disposition: - Awaiting PEG tube reinsertion with general surgery VS,Fishbone, I+O VS, Fishbone, I+O Laboratory Tests 01/24/21 06:30 Vital Signs Date Time Temp Pulse Resp B/P (MAP) Pulse Ox O2 Delivery O2 Flow Rate FiO2 01/24/21 10:13 140/65 01/24/21 06:00 98.3 84 19 97 Room Air I&O- Last 24 Hours up to 6 AM 01/24/21 06:00 Intake Total 919 ml Balance 919 ml EMMA LEON MD Jan 24, 2021 10:31
[2021-01-24] MEDS ORDERED: LIDOCAINE 1% MDV 20ML VIAL SC ONE (10:45)
[2021-01-24] MEDS: KCL 10MEQ/100ML SWI (KRUN) 10 MEQ in IV 1 EA IV SCH ×3 (11:14→13:42)
[2021-01-24] MEDS: SANTYL OINT 30GM TOP SCH (12:36)
[2021-01-24 14:00] VITALS: BP 163/85
[2021-01-24] MEDS ORDERED: FAT EMULSION IV 20% 500 ML IV SCH (18:00)
[2021-01-24] MEDS ORDERED: AMINO AC/ELECTROLYTE/DEX/CALC 2,000 ML IV SCH (18:00)
[2021-01-24 20:52] VITALS: BP 180/80
[2021-01-24] MEDS: SIMVASTATIN 20 MG TAB NG SCH (21:00)
[2021-01-24 23:24] LABS: HEMATOCRIT 31.1 % (36.0-47.0); MEAN CORPUSCULAR HEMOGLOBIN 29.6 pg (27.0-33.0); MEAN CORPUSCULAR HGB CONC 32.2 g/dl (32.0-36.5); PLATELET COUNT, AUTOMATED 249 10^3/uL (150-450); RED BLOOD COUNT 3.38 10^6/uL (4.00-5.40); WHITE BLOOD COUNT 7.1 10^3/uL (4.0-10.0)
[2021-01-25] MEDS: HumaLOG INSULIN (NovoLOG) PER UNIT SC SCH ×5 (00:25→23:50)
[2021-01-25] MEDS: PIPERACILLIN/TAZOBACTAM SOD 2.25 GM in D5W MINI-BAG PLUS 50 ML IV SCH ×4 (03:29→19:55)
[2021-01-25] MEDS: NITROGLYCERIN 2% OINT 1 GM *U/D* PKT TOP SCH ×4 (03:30→19:55)
[2021-01-25] MEDS: ENOXAPARIN 80MG/0.8ML SYRINGE (J1650 PER 10MG) SC SCH ×2 (03:30→15:48)
[2021-01-25 05:49] VITALS: BP 165/77
[2021-01-25] MEDS: SODIUM CHLORIDE 0.9% INJ 10 ML SYR IV SCH ×2 (06:00→18:00)
[2021-01-25 06:35] LABS: BASO % 0.5 % (0.0-1.0); HEMATOCRIT 31.1 % (36.0-47.0); HEMOGLOBIN 9.8 g/dl (12.0-15.5); LYMPH # 1.1 10^3/uL (1.5-5.0); LYMPH % 17.3 % (24.0-44.0); MEAN CORPUSCULAR HEMOGLOBIN 29.5 pg (27.0-33.0); MEAN CORPUSCULAR HGB CONC 31.5 g/dl (32.0-36.5); MEAN CORPUSCULAR VOLUME 93.7 fl (80.0-96.0); MONO # 0.5 10^3/uL (0.0-0.8); MONO % 8.5 % (2.0-8.0); NEUTROPHILS # 4.4 10^3/uL (1.5-8.5); NEUTROPHILS % 70.5 % (36.0-66.0); PLATELET COUNT, AUTOMATED 250 10^3/uL (150-450); RED BLOOD COUNT 3.32 10^6/uL (4.00-5.40); WHITE BLOOD COUNT 6.2 10^3/uL (4.0-10.0)
[2021-01-25 07:40] LABS: BLOOD UREA NITROGEN 21 MG/DL (7-18); CALCIUM LEVEL 8.1 MG/DL (8.8-10.2); CARBON DIOXIDE LEVEL 30 MEQ/L (21-32); CHLORIDE LEVEL 101 MEQ/L (98-107); CREATININE FOR GFR 0.91 MG/DL (0.55-1.30); GLOMERULAR FILTRATION RATE > 60.0 (>39); GLUCOSE, FASTING 412 MG/DL (70-100); SODIUM LEVEL 137 MEQ/L (136-145)
[2021-01-25] MEDS: PANTOPRAZOLE 40MG VIAL (C9113 PER 1) IV SCH (08:45)
[2021-01-25] MEDS: LEVEMIR (INSULIN DETEMIR) 1 UNITS/0.01ML SC SCH ×2 (08:45→19:54)
[2021-01-25] MEDS: SANTYL OINT 30GM TOP SCH (08:48)
--- NOTE | 2021-01-25 10:30 | IPNPDOC ---
Text Note Date of Service The patient was seen on 01/25/21. NOTE Subjective: Patient is a 75-year-old female with a PMHx of HTN, Diastolic CHF, Hx of DVT (on Xarelto), DM2, DLP, CKD3, Asthma, Right breast CA (Dx 2002, metastasis to lungs / pleural space bilaterally; s/p Lumpectomy, Chemotherapy, & Radiation, on Hormonal therapy), Feeding tube, Chronic anemia who presented to the emergency room after she had a malfunction of her feeding tube. Patient was admitted to the hospital service for further evaluation, treatment, and general surgery was called on consultation. Patient was seen and examined at the bedside. Dnies any problems overnight. Denies any CP, SOB or palpitations. Denies any N/V, C/D or urinary discomfort. Patient reports no significant abdominal tenderness. Objective: Vitals (See below) General: Patient is lying flat in bed, appears comfortable, awake and alert, o riented 3 HEENT: Normocephalic, atraumatic CVS: +S1S2 Lungs: There appears to be fair air entry bilaterally without evidence of wheezing, crackles or rhonchi Abdomen: Abdomen remains soft without any distention or tenderness Extremities: Lower extremities do not reveal any edema Skin: Pressure ulcers noted at right lower quadrant of abdomen, right lateral aspect of knee, sacrum Imaging: CT abdomen / pelvis 01/21: Small bilateral pleural effusions. Stable low-density liver lesion. Benign duodenal lipoma. Anteriorly dislodged gastrostomy tube with the retention balloon residing in the abdominal wall. There is some adjacent soft tissue emphysema. CXR 01/21: There is no significant change from the prior exam other than technique. Although reason for exam indicates nasogastric tube placement there is no nasogastric tube. Vascular US 01/21: There is a small amount of thrombus along the margin of the right popliteal vein. CXR 01/21: The nasogastric tube is coiled in the upper esophagus and should be redirected. CXR 01/21: Nasogastric tube coiled in the stomach with the tip directed cephalad in the distal esophagus. Assessment and plan: PEG tube malfunction - Patient will remain NPO status - Area prior PEG tube reveals plus drainage; continues to drain spontaneously - General surgery has been called on consultation; plan for PEG tube placement next week once draining subsides - c/w PICC line and TPN nutrition - c/w Zosyn (Day #5) for intra-abdominal coverage Multiple pressure ulcers - MRSA screen negative - c/w dressing changes as ordered - Advanced wound care consult with Dr. Looney - Plastic surgery on consultation; appreciate their input - c/w Abx - see above Hx of Breast CA (Stage IV) - Metastasis to lung and bilateral pleural space - s/p lumpectomy, chemotherapy and radiation - Currently on hormonal therapy - Complicated with malignant pleural effusion s/p Pleurx catheter; no signifi cant effusion on imaging noted s/p Hypokalemia CKD3 - Cr appears to be at baseline HTN - BP well controlled - c/w Nitroglycerin ointment - Unable to provide feeding tube medications Diastolic CHF - No evidence of fluid overload - Furosemide discontinued for now DM2 with Hyperglycemia - c/w ISS q6h - Will start Levemir for better glycemic control RLE DVT / Hx of DVT - Imaging confirmed DVT again - s/p Heparin drip; s/p Xarelto - c/w Lovenox therapeutic dosing GERD - c/w Protonix IV DVT prophylaxis - c/w Lovenox therapeutic Disposition: - Plan for PEG tube reinsertion next week VS,Fishbone, I+O VS, Fishbone, I+O Laboratory Tests 01/24/21 23:11 01/25/21 06:15 Vital Signs Date Time Temp Pulse Resp B/P (MAP) Pulse Ox O2 Delivery O2 Flow Rate FiO2 01/25/21 08:47 164/77 01/25/21 05:49 97.9 84 20 96 Room Air I&O- Last 24 Hours up to 6 AM 01/25/21 06:00 Intake Total 500 ml Balance 500 ml EMMA LEON MD Jan 25, 2021 10:30
--- NOTE | 2021-01-25 10:41 | IPNPDOC ---
Text Note Date of Service The patient was seen on 01/25/21. NOTE I followed up on Ms. cartwright today. She looks comfortable. It looks like she has been seen by the advanced wound care team for her sacral wounds. There is decreased drainage from her abdominal/gastrostomy site wound opening. She remains on TPN, Lovenox. Vital signs reviewed she is afebrile, no signs of severe systemic inflammatory response On examination she looks comfortable Her abdominal wound is examined. The induration around the wound opening has decreased. I can still squeeze a small amount of purulent material at the wound opening. I probed the wound opening and probably has a cavity about a centimeter and half all around. Does not look deep. I do not see any evidence of further bilious drainage. Not much of skin erythema or cellulitis. Minimally tender on manipulation. Labs reviewed WBC 6.2 Her CRP continues to go down. Impression and plan Dislodged gastrostomy feeding tube, initial concerns for gastrocutaneous fistula Wound infection at the prior gastrostomy tube site involving skin and subcutaneous tissue Does not look she needs further I&D. The induration seems to be improving on its own and aside from the initial drainage of bilious material on removal of the prior PEG tube I see no further evidence that she is draining gastric c ontents so I presume that she is healing accordingly. I will schedule her next week for replacement of her gastrostomy tube possibly on the new site as I would like to avoid the indurated tissues. Plan discussed with the patient and Dr. Preston. VS,Rylie, I+O VS, Rylie, I+O Laboratory Tests 01/24/21 23:11 01/25/21 06:15 Vital Signs Date Time Temp Pulse Resp B/P (MAP) Pulse Ox O2 Delivery O2 Flow Rate FiO2 01/25/21 08:47 164/77 01/25/21 05:49 97.9 84 20 96 Room Air I&O- Last 24 Hours up to 6 AM 01/25/21 05:59 Intake Total 500 ml Balance 500 ml RODOLFO AGUAYO MD Jan 25, 2021 10:41
[2021-01-25 14:00] VITALS: BP 185/80
[2021-01-25] MEDS ORDERED: MULTIVITAMIN -ADULT INJECTION 10 ML, CR/CU/SE/MN/ZN INJ 1 ML in AMINO AC/ELECTROLYTE/DE... IV SCH (18:00)
[2021-01-25] MEDS ORDERED: FAT EMULSION IV 20% 500 ML IV SCH (18:00)
[2021-01-25] MEDS: SIMVASTATIN 20 MG TAB NG SCH (19:55)
[2021-01-25 22:32] VITALS: BP 165/72
[2021-01-26] MEDS: PIPERACILLIN/TAZOBACTAM SOD 2.25 GM in D5W MINI-BAG PLUS 50 ML IV SCH ×4 (03:18→21:37)
[2021-01-26] MEDS: ENOXAPARIN 80MG/0.8ML SYRINGE (J1650 PER 10MG) SC SCH ×2 (03:18→15:40)
[2021-01-26] MEDS: NITROGLYCERIN 2% OINT 1 GM *U/D* PKT TOP SCH ×4 (03:19→21:37)
[2021-01-26] MEDS: HumaLOG INSULIN (NovoLOG) PER UNIT SC SCH ×3 (05:34→18:20)
[2021-01-26] MEDS: SODIUM CHLORIDE 0.9% INJ 10 ML SYR IV SCH ×2 (05:35→17:24)
[2021-01-26 06:18] LABS: BASO % 0.6 % (0.0-1.0); EOS % 0.2 % (0.0-3.0); HEMATOCRIT 31.3 % (36.0-47.0); LYMPH # 1.3 10^3/uL (1.5-5.0); LYMPH % 19.8 % (24.0-44.0); MEAN CORPUSCULAR HEMOGLOBIN 29.9 pg (27.0-33.0); MEAN CORPUSCULAR HGB CONC 31.9 g/dl (32.0-36.5); MEAN CORPUSCULAR VOLUME 93.4 fl (80.0-96.0); MONO # 0.5 10^3/uL (0.0-0.8); MONO % 7.9 % (2.0-8.0); NEUTROPHILS # 4.4 10^3/uL (1.5-8.5); NEUTROPHILS % 68.4 % (36.0-66.0); PLATELET COUNT, AUTOMATED 244 10^3/uL (150-450); RED BLOOD COUNT 3.35 10^6/uL (4.00-5.40); WHITE BLOOD COUNT 6.5 10^3/uL (4.0-10.0)
[2021-01-26 06:27] VITALS: BP 148/64
[2021-01-26 06:42] LABS: BLOOD UREA NITROGEN 18 MG/DL (7-18); CALCIUM LEVEL 8.2 MG/DL (8.8-10.2); CARBON DIOXIDE LEVEL 31 MEQ/L (21-32); CHLORIDE LEVEL 105 MEQ/L (98-107); CREATININE FOR GFR 0.85 MG/DL (0.55-1.30); GLOMERULAR FILTRATION RATE > 60.0 (>39); GLUCOSE, FASTING 174 MG/DL (70-100); POTASSIUM SERUM 3.3 MEQ/L (3.5-5.1); SODIUM LEVEL 140 MEQ/L (136-145)
[2021-01-26] MEDS: SANTYL OINT 30GM TOP SCH (09:39)
--- NOTE | 2021-01-26 10:20 | IPNPDOC ---
Subjective General Date Seen: Jan 26, 2021 Subject Chief Complaint/History The patient is a 75-year-old female admitted with a reason for visit of Peg Tube Malfunction, Dysphagia, Aspiration. Patient seen and examined at the bedside to follow-up on her right hip/lower abdomen pressure wound, sacral wound and a right lateral knee wound. Patient is feeling well today. She denies any pain or discomfort in those areas. Current Medications Current Medications Current Medications Medications (Trade) Dose Ordered Sig/Joseph Route PRN Reason Start Time Stop Time Status Last Admin Dose Admin Amino Ac/Electrol/ Dextrose/Calcium 1,000 ml @ 60 mls/hr [id number] IV 01/22/21 18:00 01/23/21 17:59 DC 01/23/21 10:09 Amino Ac/Electrol/ Dextrose/Calcium 2,000 ml @ 60 mls/hr ONCE@1800 IV 01/23/21 18:00 01/24/21 17:59 DC 01/23/21 20:15 Amino Ac/Electrol/ Dextrose/Calcium 2,000 ml @ 60 mls/hr ONCE@1800 IV 01/23/21 18:42 01/23/21 18:44 DC Amino Ac/Electrol/ Dextrose/Calcium 2,000 ml @ 60 mls/hr ONCE@1800 IV 01/24/21 18:00 01/25/21 17:59 DC 01/24/21 18:42 Collagenase (SantyL) Apply to both Rt hip wou... DAILY TOP 01/24/21 09:00 01/26/21 09:39 Dextrose (Dextrose 50%) 25 ml ASDIRECTED PRN IV SEE LABEL COMMENTS 01/21/21 17:45 Dextrose/Sodium Chloride 1,000 ml @ 100 mls/hr Q10H IV 01/21/21 17:10 01/22/21 03:09 DC 01/21/21 20:40 Enoxaparin Sodium (Lovenox) 70 mg Q12H SC 01/21/21 23:15 01/22/21 01:13 DC Enoxaparin Sodium (Lovenox) 70 mg Q12H SC 01/22/21 16:00 01/26/21 03:18 Fat Emulsion Intravenous 500 ml @ 20 mls/hr ONCE@1800 IV 01/22/21 18:00 01/23/21 17:59 DC 01/22/21 18:51 Fat Emulsion Intravenous 500 ml @ 20 mls/hr ONCE@1800 IV 01/23/21 18:00 01/24/21 17:59 DC 01/23/21 20:14 Fat Emulsion Intravenous 500 ml @ 20 mls/hr ONCE@1800 IV 01/24/21 18:00 01/25/21 17:59 DC 01/24/21 18:42 Fat Emulsion Intravenous 500 ml @ 20 mls/hr ONCE@1800 IV 01/25/21 18:00 01/26/21 17:59 01/25/21 18:17 Furosemide (Lasix) 40 mg DAILY NG 01/22/21 09:00 01/22/21 14:45 DC Glucagon (Glucagon) 1 mg ASDIRECTED PRN SC SEE LABEL COMMENTS 01/21/21 17:45 Glucose (Glucose) 16 GM ASDIRECTED PRN PO SEE LABEL COMMENTS 01/21/21 17:45 Heparin Sodium (Heparin (Flush)) 200 units ASDIRECTED PRN IV SEE LABEL COMMENTS 01/23/21 18:30 Heparin Sodium (Heparin (Flush)) 200 units PICC IV 01/24/21 06:00 Heparin Sodium (Porcine) (Heparin) ASDIRECTED PRN IV SEE LABEL COMMENTS 01/21/21 23:20 01/22/21 14:45 DC Heparin Sodium (Porcine) 39522 units/IV Miscellaneous Supplies 250 ml @ 0 mls/hr Q0M IV 01/21/21 23:20 01/22/21 14:45 DC 01/22/21 02:35 Home Med (Med Rec Complete!) ASDIRECTED XX 01/21/21 21:00 01/21/21 21:00 DC Insulin Detemir (Levemir Insulin) 15 units BID SC 01/25/21 09:00 01/25/21 19:54 Insulin Human Lispro (HumaLOG INSULIN) SEE PROTOCOL TABLE AC SC 01/21/21 17:30 Hold 01/22/21 06:52 Insulin Human Lispro (HumaLOG INSULIN) SEE PROTOCOL TABLE QHS SC 01/21/21 21:00 Hold 01/21/21 21:24 Insulin Human Lispro (HumaLOG INSULIN) See Protocol Table Q6H SC 01/22/21 18:00 01/23/21 12:01 DC 01/23/21 12:30 Insulin Human Lispro (HumaLOG INSULIN) See Protocol Table Q6H PR 01/23/21 18:00 01/24/21 17:59 DC 01/24/21 12:36 Insulin Human Lispro (HumaLOG INSULIN) See Protocol Table Q6H PR 01/24/21 18:00 01/25/21 12:01 DC 01/25/21 12:20 Insulin Human Lispro (HumaLOG INSULIN) See Protocol Table Q6H PR 01/25/21 18:00 01/26/21 12:01 01/26/21 05:34 Lisinopril (Prinivil) 20 mg DAILY NG 01/22/21 09:00 Multivitamins 10 ml/Chromium/ Copper/Manganese/ Seleni/Zn 1 ml/ Amino Ac/Electrol/ Dextrose/Calcium 2,011 ml @ 60 mls/hr ONCE@1800 IV 01/23/21 18:00 01/23/21 18:42 DC Multivitamins 10 ml/Chromium/ Copper/Manganese/ Seleni/Zn 1 ml/ Amino Ac/Electrol/ Dextrose/Calcium 2,011 ml @ 60 mls/hr ONCE@1800 IV 01/25/21 18:00 01/26/21 17:59 01/25/21 18:16 Nitroglycerin (Nitrobid 2%) hold for sbp<120 dc one... Q6H [facility] 01/21/21 21:00 01/26/21 09:38 Non-Formulary Medication (Heparin Iv Rate Change Documentation ml/ Hr) ASDIRECTED XX 01/21/21 23:20 01/22/21 14:45 DC Omeprazole (First-Omeprazole ORAL SUSPENSION) 20 mg DAILY GT 01/22/21 09:00 01/22/21 14:45 DC Pantoprazole Sodium (Protonix) 40 mg DAILY IV 01/22/21 09:00 01/25/21 08:45 Piperacillin Sod/ Tazobactam Sod 2.25 gm/Dextrose 50 ml @ 100 mls/hr Q6H IV 01/21/21 21:00 01/26/21 09:36 Potassium Chloride 10 meq/ IV Miscellaneous Supplies 100 ml @ 100 mls/hr Q1H IV 01/23/21 11:00 01/23/21 13:59 DC Potassium Chloride 10 meq/ IV Miscellaneous Supplies 100 ml @ 100 mls/hr Q1H IV 01/23/21 18:00 01/23/21 20:59 DC 01/23/21 20:54 Potassium Chloride 10 meq/ IV Miscellaneous Supplies 100 ml @ 100 mls/hr Q1H IV 01/24/21 11:00 01/24/21 13:59 DC 01/24/21 13:42 Simvastatin (Zocor) 20 mg QHS NG 01/21/21 21:00 Sodium Chloride (Saline Lock Flush) 10 ml ASDIRECTED PRN IV SEE LABEL COMMENTS 01/23/21 18:30 Sodium Chloride (Saline Lock Flush) 10 ml PICC IV 01/24/21 06:00 Allergies Coded Allergies: adhesive tape (Verified Allergy, Intermediate, rash, 12/14/20) exenatide (Verified Adverse Reaction, Mild, itching, 12/25/20) Objective Physical Examination Examination GENERAL APPEARANCE:Patient seen, laying in bed, awake, alert, and oriented. Com fortable, in no acute distress. SKIN: Warm and moist. LUNGS: Clear to auscultation bilaterally. No wheezing appreciated. HEART: No chest wall abnormalities. Regular rate and rhythm with no murmurs mague reciated. ABDOMEN: Abdomen is soft, non-tender, non-distended. Right lower abdomen/right hip wound with residual necrosis but improved more granulation visible. Right lateral knee with dry eschar. No drainage, no odor. Sacral wound stable no drainage no odor. EXTREMITIES: No edema identified. No calf tenderness. Vital Signs Vital Signs Date Time Temp Pulse Resp B/P (MAP) Pulse Ox O2 Delivery O2 Flow Rate FiO2 01/26/21 09:38 148/64 01/26/21 06:27 98.5 77 18 98 Room Air I&Os I&O- Last 24 Hours up to 6 AM 01/26/21 06:00 Intake Total 1877 ml Balance 1877 ml Laboratory Data Labs 24H Laboratory Tests 2 01/25/21 11:46: Bedside Glucose (Misc Panel) 349H 01/25/21 17:32: Bedside Glucose (Misc Panel) 289H 01/25/21 23:45: Bedside Glucose (Misc Panel) 272H 01/26/21 05:21: Bedside Glucose (Misc Panel) 166H 01/26/21 05:57: Immature Granulocyte % (Auto) 3.1H, Neutrophils (%) (Auto) 68.4H, Lymphocytes (%) (Auto) 19.8L, Monocytes (%) (Auto) 7.9, Eosinophils (%) (Auto) 0.2, Basophils (%) (Auto) 0.6, Neutrophils # (Auto) 4.4, Lymphocytes # (Auto) 1.3L, Monocytes # (Auto) 0.5, Eosinophils # (Auto) 0.0, Basophils # (Auto) 0.0, Nucleated Red Blood Cells % (auto) 0.0, Anion Gap 4L, Glomerular Filtration Rate > 60.0, Calcium Level 8.2L, C-Reactive Protein, Quantitative 2.40H CBC/BMP Laboratory Tests 01/26/21 05:57 Microbiology Microbiology 01/25/21 Gram Stain - Final, Resulted 01/25/21 Wound Culture, Resulted Pending 01/25/21 Gram Stain - Final, Resulted 01/25/21 Wound Culture, Resulted Pending 01/22/21 Urine Culture - Final, Complete Impression Wounds are improving. Continue with Santyl to sacral wound as well as right lower abdomen/hip wound. Betadine paint to right lateral knee wounds to keep them dry. We will plan for another bedside debridement for lower abdomen/hip wound next week. Plan / VTE VTE Prophylaxis Ordered?: Yes JORI KIRAN DO Jan 26, 2021 10:20
--- NOTE | 2021-01-26 10:26 | IPNPDOC ---
Text Note Date of Service The patient was seen on 01/26/21. NOTE Subjective: Patient is a 75-year-old female with a PMHx of HTN, Diastolic CHF, Hx of DVT (on Xarelto), DM2, DLP, CKD3, Asthma, Right breast CA (Dx 2002, metastasis to lungs / pleural space bilaterally; s/p Lumpectomy, Chemotherapy, & Radiation, on Hormonal therapy), Feeding tube, Chronic anemia who presented to the emergency room after she had a malfunction of her feeding tube. Patient was admitted to the hospital service for further evaluation, treatment, and general surgery was called on consultation. Patient was seen and examined at the bedside. Patient was seen this morning while she was having dressing changes; she asked me to stay and complete my exam. Patient denies any chest pain, short of breath, palpitations, nausea, vomiting. Denies any abdominal discomfort or any lower from the swelling. Objective: Vitals (See below) General: She was sitting up and commode, appears comfortable, not in any acute distress, awake and alert HEENT: NC, AT CVS: +S1S2 Lungs: Air entry appears to be fair bilaterally without evidence of wheezing, crackles or rhonchi on auscultation Abdomen: Soft, nondistended. Mild tenderness around PEG tube prior insertion site, possibly still remains draining Extremities: No edema Skin: Pressure ulcers noted at right lower quadrant of abdomen, right lateral aspect of knee, sacrum Imaging: CT abdomen / pelvis 01/21: Small bilateral pleural effusions. Stable low-density liver lesion. Benign duodenal lipoma. Anteriorly dislodged gastrostomy tube with the retention balloon residing in the abdominal wall. There is some adjacent soft tissue emphysema. CXR 01/21: There is no significant change from the prior exam other than technique. Although reason for exam indicates nasogastric tube placement there is no n asogastric tube. Vascular US 01/21: There is a small amount of thrombus along the margin of the right popliteal vein. CXR 01/21: The nasogastric tube is coiled in the upper esophagus and should be redirected. CXR 01/21: Nasogastric tube coiled in the stomach with the tip directed cephalad in the distal esophagus. Assessment and plan: PEG tube malfunction - Prior PEG tube insertion site still reveals plus draining, however, does not appear to be developing any worsening erythema - General surgery has been called on consultation; plan for PEG tube placement next week once draining subsides - Wound cultures 01/25: Pending - c/w PICC line and TPN nutrition - c/w strict NPO status - c/w Zosyn (Day #6) for intra-abdominal coverage Multiple pressure ulcers - MRSA screen negative - Advanced wound care consult with Dr. Looney - Plastic surgery on consultation; possible plan for debridement next week - c/w Abx - see above - c/w dressing changes as ordered Hx of Breast CA (Stage IV) - Metastasis to lung and bilateral pleural space - s/p lumpectomy, chemotherapy and radiation - Currently on hormonal therapy - Complicated with malignant pleural effusion s/p Pleurx catheter; no sig nificant effusion on imaging noted s/p Hypokalemia CKD3 - Cr appears to be at baseline HTN - BP well controlled - c/w Nitroglycerin ointment - Unable to provide feeding tube medications Diastolic CHF - No evidence of fluid overload - Furosemide discontinued for now DM2 with Hyperglycemia - c/w ISS q6h and Levemir RLE DVT / Hx of DVT - Imaging confirmed DVT again - s/p Heparin drip; s/p Xarelto - c/w Lovenox therapeutic dosing GERD - c/w Protonix IV DVT prophylaxis - c/w Lovenox therapeutic Disposition: - Plan for PEG tube reinsertion / debridement next week VS,Tristonbone, I+O VS, Fishbone, I+O Laboratory Tests 01/26/21 05:57 Vital Signs Date Time Temp Pulse Resp B/P (MAP) Pulse Ox O2 Delivery O2 Flow Rate FiO2 01/26/21 09:38 148/64 01/26/21 06:27 98.5 77 18 98 Room Air I&O- Last 24 Hours up to 6 AM 01/26/21 06:00 Intake Total 1877 ml Balance 1877 ml EMMA LEON MD Jan 26, 2021 10:26
[2021-01-26] MEDS: PANTOPRAZOLE 40MG VIAL (C9113 PER 1) IV SCH (10:31)
[2021-01-26] MEDS: LEVEMIR (INSULIN DETEMIR) 1 UNITS/0.01ML SC SCH ×2 (10:32→21:37)
[2021-01-26 14:00] VITALS: BP 155/73
[2021-01-26] MEDS ORDERED: FAT EMULSION IV 20% 500 ML IV SCH (18:00)
[2021-01-26] MEDS ORDERED: AMINO AC/ELECTROLYTE/DEX/CALC 2,000 ML IV SCH (18:00)
[2021-01-26] MEDS: SIMVASTATIN 20 MG TAB NG SCH ×2 (21:00→21:36)
[2021-01-26 22:00] VITALS: BP 150/70
[2021-01-27] MEDS: HumaLOG INSULIN (NovoLOG) PER UNIT SC SCH ×4 (00:23→18:56)
[2021-01-27] MEDS: PIPERACILLIN/TAZOBACTAM SOD 2.25 GM in D5W MINI-BAG PLUS 50 ML IV SCH ×4 (02:50→22:23)
[2021-01-27] MEDS: ENOXAPARIN 80MG/0.8ML SYRINGE (J1650 PER 10MG) SC SCH ×2 (02:50→15:36)
[2021-01-27] MEDS: NITROGLYCERIN 2% OINT 1 GM *U/D* PKT TOP SCH ×4 (02:52→22:24)
[2021-01-27] MEDS: SODIUM CHLORIDE 0.9% INJ 10 ML SYR IV SCH ×2 (02:57→18:00)
[2021-01-27 06:00] VITALS: BP 154/68
[2021-01-27 06:44] LABS: BASO % 0.6 % (0.0-1.0); EOS % 0.2 % (0.0-3.0); HEMATOCRIT 30.9 % (36.0-47.0); LYMPH # 1.2 10^3/uL (1.5-5.0); LYMPH % 19.1 % (24.0-44.0); MEAN CORPUSCULAR HEMOGLOBIN 30.2 pg (27.0-33.0); MEAN CORPUSCULAR HGB CONC 32.4 g/dl (32.0-36.5); MEAN CORPUSCULAR VOLUME 93.4 fl (80.0-96.0); MONO # 0.6 10^3/uL (0.0-0.8); MONO % 9.4 % (2.0-8.0); NEUTROPHILS # 4.4 10^3/uL (1.5-8.5); NEUTROPHILS % 68.2 % (36.0-66.0); PLATELET COUNT, AUTOMATED 241 10^3/uL (150-450); RED BLOOD COUNT 3.31 10^6/uL (4.00-5.40); WHITE BLOOD COUNT 6.5 10^3/uL (4.0-10.0)
[2021-01-27 07:03] LABS: BLOOD UREA NITROGEN 21 MG/DL (7-18); C REACTIVE PROTEIN QUANTITATIV 1.77 MG/DL (0.00-0.30); CALCIUM LEVEL 8.6 MG/DL (8.8-10.2); CARBON DIOXIDE LEVEL 28 MEQ/L (21-32); CHLORIDE LEVEL 104 MEQ/L (98-107); CREATININE FOR GFR 0.93 MG/DL (0.55-1.30); GLOMERULAR FILTRATION RATE > 60.0 (>39); GLUCOSE, FASTING 286 MG/DL (70-100); POTASSIUM SERUM 3.5 MEQ/L (3.5-5.1); SODIUM LEVEL 139 MEQ/L (136-145)
[2021-01-27] MEDS: PANTOPRAZOLE 40MG VIAL (C9113 PER 1) IV SCH (08:48)
[2021-01-27] MEDS: LEVEMIR (INSULIN DETEMIR) 1 UNITS/0.01ML SC SCH ×2 (08:49→22:25)
[2021-01-27] MEDS: SANTYL OINT 30GM TOP SCH (08:50)
--- NOTE | 2021-01-27 09:15 | IPNPDOC ---
Text Note Date of Service The patient was seen on 01/27/21. NOTE Subjective: Patient is a 75-year-old female with a PMHx of HTN, Diastolic CHF, Hx of DVT (on Xarelto), DM2, DLP, CKD3, Asthma, Right breast CA (Dx 2002, metastasis to lungs / pleural space bilaterally; s/p Lumpectomy, Chemotherapy, & Radiation, on Hormonal therapy), Feeding tube, Chronic anemia who presented to the emergency room after she had a malfunction of her feeding tube. Patient was admitted to the hospital service for further evaluation, treatment, and general surgery was called on consultation. Patient was seen and examined at the bedside. Currently denies any chest pain, shortness breath, palpitations, has not spent any abdominal pain, diarrhea, or urinary discomfort. Objective: Vitals (See below) General: Patient is laying flat in bed, appears to be comfortable without any acute distress, is oriented to person, time HEENT: Atraumatic and normocephalic CVS: +S1S2 Lungs: There appears to be fair air entry bilaterally without evidence of wheezing, crackles or rhonchi Abdomen: Remains soft without distention or tenderness. Area of prior PEG tube reveals continued pus drainage Extremities: Lower tremors are without any edema Skin: Pressure ulcers noted at right lower quadrant of abdomen, right lateral aspect of knee, sacrum Imaging: CT abdomen / pelvis 01/21: Small bilateral pleural effusions. Stable low-density liver lesion. Benign duodenal lipoma. Anteriorly dislodged gastrostomy tube with the retention balloon residing in the abdominal wall. There is some adjacent soft tissue emphysema. CXR 01/21: There is no significant change from the prior exam other than technique. Although reason for exam indicates nasogastric tube placement there is no nasogastric tube. Vascular US 01/21: There is a small amount of thrombus along the margin of the right popliteal vein. CXR 01/21: The nasogastric tube is coiled in the upper esophagus and should be redirected. CXR 01/21: Nasogastric tube coiled in the stomach with the tip directed cephalad in the distal esophagus. Assessment and plan: PEG tube malfunction - Pus still draining, no significant erythema - Wound cultures 01/25: Pending - c/w PICC line and TPN nutrition - c/w strict NPO status - c/w Zosyn (Day #7) for intra-abdominal coverage - General surgery has been called on consultation; PEG tube placement this week Multiple pressure ulcers - MRSA screen negative - Wound cultures 01/25: Pending - Advanced wound care consult with Dr. Looney - Plastic surgery on consultation; possible plan for debridement this week - c/w Abx - see above - c/w dressing changes as ordered Hx of Breast CA (Stage IV) - Metastasis to lung and bilateral pleural space - s/p lumpectomy, chemotherapy and radiation - Currently on hormonal therapy Hx of malignant pleural effusion - Saturating well on room air - Patient has a Pleurx catheter in place - No significant effusion on imaging noted s/p Hypokalemia CKD3 - Cr appears to be at baseline HTN - BP well controlled - c/w Nitroglycerin ointment - Unable to provide feeding tube medications Diastolic CHF - No evidence of fluid overload - Furosemide discontinued for now (re: NPO) DM2 with Hyperglycemia - Glucose levels better controlled - c/w ISS q6h and Levemir RLE DVT / Hx of DVT - Imaging confirmed DVT again - s/p Heparin drip; s/p Xarelto - c/w Lovenox therapeutic dosing GERD - c/w Protonix IV DVT prophylaxis - c/w Lovenox therapeutic Disposition: - Plan for PEG tube reinsertion / debridement this week VS,Rylie, I+O VS, Rylie, I+O Laboratory Tests 01/27/21 06:06 Vital Signs Date Time Temp Pulse Resp B/P (MAP) Pulse Ox O2 Delivery O2 Flow Rate FiO2 01/27/21 08:49 154/68 01/27/21 06:00 98.2 78 18 95 Room Air I&O- Last 24 Hours up to 6 AM 01/27/21 06:00 Intake Total 3160 ml Output Total 250 ml Balance 2910 ml EMMA LEON MD Jan 27, 2021 09:15
[2021-01-27 14:00] VITALS: BP 175/70
[2021-01-27] MEDS ORDERED: FAT EMULSION IV 20% 500 ML IV SCH (18:00)
[2021-01-27] MEDS ORDERED: AMINO AC/ELECTROLYTE/DEX/CALC 2,000 ML IV SCH (18:00)
[2021-01-27 18:10] LABS: CK-MB VALUE MASS < 1.0 NG/ML (<3.6); CPK CREATINE PHOSPHOKINASE 22 U/L (26-192); MB/CK RELATIVE INDEX 4.55 (< OR =4); TROPONIN I < 0.02 NG/ML (< 0.10)
[2021-01-27] MEDS: SIMVASTATIN 20 MG TAB NG SCH (21:00)
[2021-01-27 22:00] VITALS: BP 156/70
[2021-01-27] MEDS ORDERED: ACETAMINOPHEN 650 MG SUPP PR PRN (22:05)
[2021-01-28] MEDS: HumaLOG INSULIN (NovoLOG) PER UNIT SC SCH ×5 (00:25→23:23)
[2021-01-28] MEDS: PIPERACILLIN/TAZOBACTAM SOD 2.25 GM in D5W MINI-BAG PLUS 50 ML IV SCH ×2 (03:29→09:01)
[2021-01-28] MEDS: NITROGLYCERIN 2% OINT 1 GM *U/D* PKT TOP SCH ×4 (03:29→23:24)
[2021-01-28] MEDS: ENOXAPARIN 80MG/0.8ML SYRINGE (J1650 PER 10MG) SC SCH (04:42)
[2021-01-28 06:00] VITALS: BP 163/88
[2021-01-28] MEDS: SODIUM CHLORIDE 0.9% INJ 10 ML SYR IV SCH ×2 (06:17→18:09)
[2021-01-28 06:28] LABS: BASO # 0.1 10^3/uL (0.0-0.2); BASO % 0.8 % (0.0-1.0); EOS % 0.2 % (0.0-3.0); HEMATOCRIT 31.9 % (36.0-47.0); HEMOGLOBIN 10.1 g/dl (12.0-15.5); LYMPH # 1.1 10^3/uL (1.5-5.0); LYMPH % 18.3 % (24.0-44.0); MEAN CORPUSCULAR HEMOGLOBIN 30.1 pg (27.0-33.0); MEAN CORPUSCULAR HGB CONC 31.7 g/dl (32.0-36.5); MEAN CORPUSCULAR VOLUME 94.9 fl (80.0-96.0); MONO # 0.6 10^3/uL (0.0-0.8); MONO % 10.1 % (2.0-8.0); NEUTROPHILS # 4.2 10^3/uL (1.5-8.5); NEUTROPHILS % 67.8 % (36.0-66.0); PLATELET COUNT, AUTOMATED 236 10^3/uL (150-450); RED BLOOD COUNT 3.36 10^6/uL (4.00-5.40); WHITE BLOOD COUNT 6.1 10^3/uL (4.0-10.0)
[2021-01-28 06:52] LABS: BLOOD UREA NITROGEN 24 MG/DL (7-18); C REACTIVE PROTEIN QUANTITATIV 1.55 MG/DL (0.00-0.30); CALCIUM LEVEL 8.1 MG/DL (8.8-10.2); CARBON DIOXIDE LEVEL 30 MEQ/L (21-32); CHLORIDE LEVEL 105 MEQ/L (98-107); CREATININE FOR GFR 0.88 MG/DL (0.55-1.30); GLOMERULAR FILTRATION RATE > 60.0 (>39); GLUCOSE, FASTING 282 MG/DL (70-100); POTASSIUM SERUM 3.4 MEQ/L (3.5-5.1); SODIUM LEVEL 140 MEQ/L (136-145)
[2021-01-28] MEDS: PANTOPRAZOLE 40MG VIAL (C9113 PER 1) IV SCH (09:01)
[2021-01-28] MEDS: SANTYL OINT 30GM TOP SCH (09:02)
[2021-01-28] MEDS: LEVEMIR (INSULIN DETEMIR) 1 UNITS/0.01ML SC SCH ×2 (09:03→23:22)
--- NOTE | 2021-01-28 10:09 | IPNPDOC ---
Text Note Date of Service The patient was seen on 01/28/21. NOTE Subjective: Patient is a 75-year-old female with a PMHx of HTN, Diastolic CHF, Hx of DVT (on Xarelto), DM2, DLP, CKD3, Asthma, Right breast CA (Dx 2002, metastasis to lungs / pleural space bilaterally; s/p Lumpectomy, Chemotherapy, & Radiation, on Hormonal therapy), Feeding tube, Chronic anemia who presented to the emergency room after she had a malfunction of her feeding tube. Patient was admitted to the hospital service for further evaluation, treatment, and general surgery was called on consultation. Patient was seen and examined at the bedside. Patient reports that she feels relatively fine. She denies any nausea, vomiting, any significant abdominal discomfort. Has not spent any chest pain, shortness breath, palpitations. Denies any diarrhea, or urinary discomfort. Objective: Vitals (See below) General: Again, patient is lying flat on her back, appears comfortable without any acute distress, oriented to person, place and time HEENT: AT, NC CVS: +S1S2 Lungs: No wheezing, rales or rhonchi appreciated, auscultation and air entry appears to be fair bilaterally Abdomen: ND, NT, Soft, plus noted to continue to drain out of mid abdomen/prior PEG tube placement Extremities: No edema Skin: Pressure ulcers noted at right lower quadrant of abdomen, right lateral aspect of knee, sacrum, R foot heel Imaging: CT abdomen / pelvis 01/21: Small bilateral pleural effusions. Stable low-density liver lesion. Benign duodenal lipoma. Anteriorly dislodged gastrostomy tube with the retention balloon residing in the abdominal wall. There is some adjacent soft tissue emphysema. CXR 01/21: There is no significant change from the prior exam other than technique. Although reason for exam indicates nasogastric tube placement there is no nasogastric tube. Vascular US 01/21: There is a small amount of thrombus along the margin of the right popliteal vein. CXR 01/21: The nasogastric tube is coiled in the upper esophagus and should be redirected. CXR 01/21: Nasogastric tube coiled in the stomach with the tip directed cephalad in the distal esophagus. Assessment and plan: PEG tube malfunction - Post continues to drain from prior PEG tube site - Wound cultures 01/25: Evidence of pseudomonas, Klebsiella, Enterococcus faecalis, strep and staph - c/w strict NPO status and TPN nutrition via PICC - Will change antibiotics to Meropenem (Day #1); Will DC Zosyn (Completed 7 days) for intra-abdominal coverage - General surgery has been called on consultation; PEG tube placement - likely this week Multiple pressure ulcers - MRSA screen negative - Wound cultures noted above - Advanced wound care consult with Dr. Looney - Plastic surgery on consultation; will likely be debrided this week - c/w Abx - see above - c/w dressing changes as ordered Hx of Breast CA (Stage IV) - Metastasis to lung and bilateral pleural space - s/p lumpectomy, chemotherapy and radiation - Currently on hormonal therapy Hx of malignant pleural effusion - Saturating well on room air - Patient has a Pleurx catheter in place - No significant effusion on imaging noted s/p Hypokalemia CKD3 - Cr appears to be at baseline HTN - BP well controlled - c/w Nitroglycerin ointment - Unable to provide feeding tube medications Diastolic CHF - No evidence of fluid overload - Furosemide discontinued for now (re: NPO) DM2 with Hyperglycemia - Glucose levels better controlled - c/w ISS q6h and Levemir RLE DVT / Hx of DVT - Imaging confirmed DVT again - s/p Heparin drip; s/p Xarelto - c/w Lovenox therapeutic dosing GERD - c/w Protonix IV DVT prophylaxis - c/w Lovenox therapeutic Disposition: - Plan for PEG tube reinsertion / debridement this week VS,Fishbone, I+O VS, Fishbone, I+O Laboratory Tests 01/28/21 06:14 Vital Signs Date Time Temp Pulse Resp B/P (MAP) Pulse Ox O2 Delivery O2 Flow Rate FiO2 01/28/21 09:03 164/71 01/28/21 06:00 99.6 82 18 93 Room Air I&O- Last 24 Hours up to 6 AM 01/28/21 05:59 Intake Total 1980 ml Output Total 200 ml Balance 1780 ml EMMA LEON MD Jan 28, 2021 10:09
[2021-01-28] MEDS: MEROPENEM INJ 1 GM in IV 1 EA IV SCH ×2 (12:01→18:00)
[2021-01-28] MEDS: KCL 10MEQ/100ML SWI (KRUN) 10 MEQ in IV 1 EA IV SCH ×3 (12:45→14:55)
[2021-01-28 14:00] VITALS: BP 145/76
[2021-01-28] MEDS ORDERED: FAT EMULSION IV 20% 500 ML IV SCH (18:00)
[2021-01-28] MEDS ORDERED: MULTIVITAMIN -ADULT INJECTION 10 ML, CR/CU/SE/MN/ZN INJ 1 ML, POTASSIUM CHLORIDE INJ 55... IV SCH ×4 (18:00)
[2021-01-28] MEDS: SIMVASTATIN 20 MG TAB NG SCH (21:00)
[2021-01-28 22:00] VITALS: BP 147/68
[2021-01-29] VITALS (7 sets, daily range): BP systolic 151–176; BP diastolic 71–78
[2021-01-29] MEDS: MEROPENEM INJ 1 GM in IV 1 EA IV SCH ×3 (03:54→18:59)
[2021-01-29] MEDS: NITROGLYCERIN 2% OINT 1 GM *U/D* PKT TOP SCH ×4 (03:55→21:24)
[2021-01-29] MEDS: SODIUM CHLORIDE 0.9% INJ 10 ML SYR IV SCH ×2 (06:50→19:00)
[2021-01-29] MEDS: HumaLOG INSULIN (NovoLOG) PER UNIT SC SCH ×3 (06:50→21:00)
[2021-01-29] MEDS: PANTOPRAZOLE 40MG VIAL (C9113 PER 1) IV SCH (08:33)
[2021-01-29] MEDS: LEVEMIR (INSULIN DETEMIR) 1 UNITS/0.01ML SC SCH ×2 (08:34→21:23)
[2021-01-29] MEDS: SANTYL OINT 30GM TOP SCH (09:12)
--- NOTE | 2021-01-29 13:16 | IPNPDOC ---
Text Note Date of Service The patient was seen on 01/29/21. NOTE Patient seen in the preop holding area. She had her feeding/gastrostomy tube erode/dislodge into the subcutaneous tissue with an abscess which seems to be healing/controlled although there is still some fibrinous exudate within the wound opening but not much drainage. She denies any pain. she has been afebrile On exam, looks comfortable abdomen, soft, nondistended, small umbilical hernia noted. LUQ wound from prior gastrostomy site with minimal exudates/fibrin on the wound opening, subcutaneous swelling and induration improved. No further signs of bilious drainage. Nontender on palpation Impression and plan metastatic breast cancer dysphagia and aspiration dislodged feeding tube with tube erosion to the subcutaneous tissue and subcutaneous abscess. initially I had concerns of possible gastrocutaneous fistula but no active drainage at this time Plan to go ahead and do Upper endoscopy and placement of new feeding tube I&D of wound on prior gastrotomy site. VS,Fishbone, I+O VS, Fishbone, I+O Vital Signs Date Time Temp Pulse Resp B/P (MAP) Pulse Ox O2 Delivery O2 Flow Rate FiO2 01/29/21 08:33 155/69 01/29/21 06:00 97.8 74 18 95 Room Air I&O- Last 24 Hours up to 6 AM 01/29/21 06:00 Intake Total 1220 ml Output Total 700 ml Balance 520 ml RODOLFO AGUAYO MD Jan 29, 2021 13:16
[2021-01-29] MEDS ORDERED: LIDOCAINE 2% 100MG/5ML SDV (FOR ANES.) As Ordered ONE (13:18)
[2021-01-29] MEDS ORDERED: propofoL 500 MG/50 ML VIAL As Ordered ONE (13:19)
[2021-01-29] MEDS ORDERED: fentaNYL 100 MCG/2 ML INJECTION (J3010) As Ordered ONE (13:21)
[2021-01-29] MEDS ORDERED: LR 1,000 ML IV SCH (14:20)
[2021-01-29] MEDS ORDERED: ONDANSETRON 4MG/2ML VIAL IV PRN (14:20)
--- NOTE | 2021-01-29 18:05 | IPNPDOC ---
Subjective Date Seen The patient was seen on 01/29/21. Subjective Chief Complaint/HPI Resting in bed, denies any complaints, awaiting PEG-T placement Objective Physical Examination General Exam: Positive: Alert, No Acute Distress Eye Exam: Positive: PERRLA, Conjunctiva & lids normal, EOMI; Negative: Sclera icteric ENT Exam: Positive: Atraumatic, Mucous membr. moist/pink, Pharynx Normal Neck Exam: Positive: Supple; Negative: JVD, thyromegaly Chest Exam: Positive: Clear to auscultation, Normal air movement Heart Exam: Positive: Rate Normal, Regular Rhythm, Normal S1, Normal S2; Negative: Murmurs, Rubs Telemetry: Positive: No significant arrhythmia Abdomen Exam: Positive: Normal bowel sounds, Soft, Other (J tube in place, stoma site c/d/i); Negative: Tenderness, Hepatospenomegaly Female Exam: Positive: Nl Ext Genitalia; Negative: Lesions, Discharge, Odor, Tenderness Extremity Exam: Positive: Normal pulses; Negative: Clubbing, Cyanosis, Edema Skin Exam: Positive: Nl turgor and temperature; Negative: Rash, Breakdown Neuro Exam: Positive: Normal Gait, Normal Speech, Cranial Nerves 3-12 NL, Reflexes 2+ Psych Exam: Positive: Mental status NL, Mood NL, Oriented x 3 Assessment /Plan Assessment PEG tube malfunction - Post continues to drain from prior PEG tube site - Wound cultures 01/25: Evidence of pseudomonas, Klebsiella, Enterococcus faecalis, strep and staph - c/w strict NPO status and TPN nutrition via PICC - Will change antibiotics to Meropenem (Day #2); discontinued Zosyn (Completed 7 days) for intra-abdominal coverage - PEG tube placement todat Multiple pressure ulcers - MRSA screen negative - Wound cultures noted above - Advanced wound care consult with Dr. Looney - Plastic surgery on consultation; will likely be debrided this week - c/w Abx - see above - c/w dressing changes as ordered Hx of Breast CA (Stage IV) - Metastasis to lung and bilateral pleural space - s/p lumpectomy, chemotherapy and radiation - Currently on hormonal therapy Hx of malignant pleural effusion - Saturating well on room air - Patient has a Pleurx catheter in place - No significant effusion on imaging noted s/p Hypokalemia CKD3 - Cr appears to be at baseline HTN - BP well controlled - c/w Nitroglycerin ointment - Unable to provide feeding tube medications Diastolic CHF - No evidence of fluid overload - Furosemide discontinued for now (re: NPO) DM2 with Hyperglycemia - Glucose levels better controlled - c/w ISS q6h and Levemir RLE DVT / Hx of DVT - Imaging confirmed DVT again - s/p Heparin drip; s/p Xarelto - c/w Lovenox therapeutic dosing GERD - c/w Protonix IV DVT prophylaxis - c/w Lovenox therapeutic Disposition: - Plan for PEG tube reinsertion / debridement this week Plan/VTE VTE Prophylaxis Ordered?: Yes VS, I&O, 24H, Fishbone Vital Signs/I&O Vital Signs Date Time Temp Pulse Resp B/P (MAP) Pulse Ox O2 Delivery O2 Flow Rate FiO2 01/29/21 17:30 98.4 75 18 173/71 (105) 97 Room Air I&O- Last 24 Hours up to 6 AM 01/29/21 06:00 Intake Total 1220 ml Output Total 700 ml Balance 520 ml Laboratory Data 24H LABS Laboratory Tests 2 01/28/21 23:15: Bedside Glucose (Misc Panel) 271H 01/29/21 06:42: Bedside Glucose (Misc Panel) 246H 01/29/21 10:14: Coronavirus (COVID-19)(PCR) NEGATIVE 01/29/21 11:45: Bedside Glucose (Misc Panel) 230H 01/29/21 13:40: Bedside Glucose (Misc Panel) 228H 01/29/21 16:45: Bedside Glucose (Misc Panel) 257H Microbiology Microbiology 01/25/21 Gram Stain - Final, Complete 01/25/21 Wound Culture - Final, Complete Pseudomonas Aeruginosa Klebsiella Pneumoniae Staphylococcus Sp Coag Neg 01/25/21 Gram Stain - Final, Complete 01/25/21 Wound Culture - Final, Complete Enterococcus Faecalis Strep Anginosus Grp 01/22/21 Urine Culture - Final, Complete FARHAD WOODY MD Jan 29, 2021 17:54
[2021-01-29] MEDS ORDERED: PERCOCET 5MG/325MG TAB PEG PRN (20:00)
[2021-01-29] MEDS: SIMVASTATIN 20 MG TAB NG SCH (21:22)
[2021-01-30 02:00] VITALS: BP 151/69
[2021-01-30] MEDS: MEROPENEM INJ 1 GM in IV 1 EA IV SCH ×3 (02:59→18:02)
[2021-01-30] MEDS: NITROGLYCERIN 2% OINT 1 GM *U/D* PKT TOP SCH ×4 (02:59→20:20)
[2021-01-30] MEDS: SODIUM CHLORIDE 0.9% INJ 10 ML SYR IV PRN (04:06)
[2021-01-30] MEDS: ENOXAPARIN 80MG/0.8ML SYRINGE (J1650 PER 10MG) SC SCH ×2 (04:07→15:53)
[2021-01-30 06:00] VITALS: BP 131/52
[2021-01-30] MEDS: SODIUM CHLORIDE 0.9% INJ 10 ML SYR IV SCH ×2 (06:04→18:01)
[2021-01-30] MEDS: HumaLOG INSULIN (NovoLOG) PER UNIT SC SCH ×4 (07:30→20:29)
[2021-01-30] MEDS: PANTOPRAZOLE 40MG VIAL (C9113 PER 1) IV SCH (09:01)
[2021-01-30] MEDS: LEVEMIR (INSULIN DETEMIR) 1 UNITS/0.01ML SC SCH ×2 (09:02→20:29)
[2021-01-30] MEDS: SANTYL OINT 30GM TOP SCH (09:07)
--- NOTE | 2021-01-30 12:24 | IPNPDOC ---
Subjective Date Seen The patient was seen on 01/30/21. Subjective Chief Complaint/HPI Bel complaining of some abdominal soreness following her PEG tube reinsertion. No other complaints at this time. Objective Physical Examination General Exam: Positive: Alert, No Acute Distress Eye Exam: Positive: PERRLA, Conjunctiva & lids normal, EOMI; Negative: Sclera icteric ENT Exam: Positive: Atraumatic, Mucous membr. moist/pink, Pharynx Normal Neck Exam: Positive: Supple; Negative: JVD, thyromegaly Chest Exam: Positive: Clear to auscultation, Normal air movement Heart Exam: Positive: Rate Normal, Regular Rhythm, Normal S1, Normal S2; Negative: Murmurs, Rubs Telemetry: Positive: No significant arrhythmia Abdomen Exam: Positive: Normal bowel sounds, Soft, Other (J tube in place, PEG tube in place); Negative: Tenderness, Hepatospenomegaly Female Exam: Positive: Nl Ext Genitalia; Negative: Lesions, Discharge, Odor, Tenderness Extremity Exam: Positive: Normal pulses; Negative: Clubbing, Cyanosis, Edema Skin Exam: Positive: Nl turgor and temperature; Negative: Rash, Breakdown Neuro Exam: Positive: Normal Gait, Normal Speech, Cranial Nerves 3-12 NL, Reflexes 2+ Psych Exam: Positive: Mental status NL, Mood NL, Oriented x 3 Assessment /Plan Assessment PEG tube malfunction - Wound cultures 01/25: Evidence of pseudomonas, Klebsiella, Enterococcus faecalis, strep and staph - c/w strict NPO status and TPN nutrition via PICC - Meropenem (Day #3); discontinued Zosyn (Completed 7 days) for intra-abdominal coverage - s/p peg replacement on 01/29/21 Multiple pressure ulcers - MRSA screen negative - Wound cultures noted above - Advanced wound care consult with Dr. Looney - Plastic surgery on consultation; will likely be debrided this week - c/w Abx - see above - c/w dressing changes as ordered Hx of Breast CA (Stage IV) - Metastasis to lung and bilateral pleural space - s/p lumpectomy, chemotherapy and radiation - Currently on hormonal therapy Hx of malignant pleural effusion - Saturating well on room air - Patient has a Pleurx catheter in place - No significant effusion on imaging noted s/p Hypokalemia CKD3 - Cr appears to be at baseline HTN - BP well controlled - c/w Nitroglycerin ointment - Unable to provide feeding tube medications Diastolic CHF - No evidence of fluid overload - Furosemide discontinued for now (re: NPO) DM2 with Hyperglycemia - Glucose levels better controlled - c/w ISS q6h and Levemir RLE DVT / Hx of DVT - Imaging confirmed DVT again - s/p Heparin drip; s/p Xarelto - c/w Lovenox therapeutic dosing GERD - c/w Protonix IV DVT prophylaxis - c/w Lovenox therapeutic Disposition: - awaiting improvement Plan/VTE VTE Prophylaxis Ordered?: Yes VS, I&O, 24H, Fishbone Vital Signs/I&O Vital Signs Date Time Temp Pulse Resp B/P (MAP) Pulse Ox O2 Delivery O2 Flow Rate FiO2 01/30/21 09:06 130/60 01/30/21 06:00 98.5 62 20 97 Room Air I&O- Last 24 Hours up to 6 AM 01/30/21 06:00 Intake Total 1290 ml Output Total 405 ml Balance 885 ml Laboratory Data 24H LABS Laboratory Tests 2 01/29/21 13:40: Bedside Glucose (Misc Panel) 228H 01/29/21 16:45: Bedside Glucose (Misc Panel) 257H 01/29/21 21:11: Bedside Glucose (Misc Panel) 212H 01/30/21 07:08: Bedside Glucose (Misc Panel) 139H 01/30/21 11:44: Bedside Glucose (Misc Panel) 118H Microbiology Microbiology 01/25/21 Gram Stain - Final, Complete 01/25/21 Wound Culture - Final, Complete Pseudomonas Aeruginosa Klebsiella Pneumoniae Staphylococcus Sp Coag Neg 01/25/21 Gram Stain - Final, Complete 01/25/21 Wound Culture - Final, Complete Enterococcus Faecalis Strep Anginosus Grp 01/22/21 Urine Culture - Final, Complete FARHAD WOODY MD Jan 30, 2021 12:24
[2021-01-30 14:00] VITALS: BP 160/74
[2021-01-30 20:13] VITALS: BP 127/46
[2021-01-30] MEDS: SIMVASTATIN 20 MG TAB NG SCH (20:20)
[2021-01-31] MEDS: MEROPENEM INJ 1 GM in IV 1 EA IV SCH ×3 (03:10→17:49)
[2021-01-31] MEDS: ENOXAPARIN 80MG/0.8ML SYRINGE (J1650 PER 10MG) SC SCH ×2 (03:10→17:48)
[2021-01-31] MEDS: NITROGLYCERIN 2% OINT 1 GM *U/D* PKT TOP SCH (03:11)
[2021-01-31 05:36] VITALS: BP 136/62
[2021-01-31] MEDS: SODIUM CHLORIDE 0.9% INJ 10 ML SYR IV SCH ×2 (05:39→17:47)
[2021-01-31] MEDS: HumaLOG INSULIN (NovoLOG) PER UNIT SC SCH ×4 (07:30→20:30)
[2021-01-31] MEDS: LEVEMIR (INSULIN DETEMIR) 1 UNITS/0.01ML SC SCH ×2 (08:49→20:30)
[2021-01-31] MEDS: PANTOPRAZOLE 40MG VIAL (C9113 PER 1) IV SCH (10:49)
[2021-01-31] MEDS: FUROSEMIDE 40 MG TAB PEG SCH (10:50)
--- NOTE | 2021-01-31 11:08 | IPNPDOC ---
Subjective Date Seen The patient was seen on 01/31/21. Subjective Chief Complaint/HPI Bel is doing well this morning. No issues overnight. Objective Physical Examination General Exam: Positive: Alert, No Acute Distress Eye Exam: Positive: PERRLA, Conjunctiva & lids normal, EOMI; Negative: Sclera icteric ENT Exam: Positive: Atraumatic, Mucous membr. moist/pink, Pharynx Normal Neck Exam: Positive: Supple; Negative: JVD, thyromegaly Chest Exam: Positive: Clear to auscultation, Normal air movement Heart Exam: Positive: Rate Normal, Regular Rhythm, Normal S1, Normal S2; Negative: Murmurs, Rubs Telemetry: Positive: No significant arrhythmia Abdomen Exam: Positive: Normal bowel sounds, Soft, Other (J tube in place, PEG tube in place); Negative: Tenderness, Hepatospenomegaly Female Exam: Positive: Nl Ext Genitalia; Negative: Lesions, Discharge, Odor, Tenderness Extremity Exam: Positive: Normal pulses; Negative: Clubbing, Cyanosis, Edema Skin Exam: Positive: Nl turgor and temperature; Negative: Rash, Breakdown Neuro Exam: Positive: Normal Gait, Normal Speech, Cranial Nerves 3-12 NL, Reflexes 2+ Psych Exam: Positive: Mental status NL, Mood NL, Oriented x 3 Assessment /Plan Assessment PEG tube malfunction - Wound cultures 01/25: Evidence of pseudomonas, Klebsiella, Enterococcus faecalis, strep and staph - c/w strict NPO status and TPN nutrition via PICC - Meropenem (Day #3); discontinued Zosyn (Completed 7 days) for intra-abdominal coverage - s/p peg replacement on 01/29/21, start tFs Multiple pressure ulcers - MRSA screen negative - Wound cultures noted above - Advanced wound care consult with Dr. Looney - Plastic surgery on consultation; s/p bedside I+D - c/w Abx - see above - c/w dressing changes as ordered Hx of Breast CA (Stage IV) - Metastasis to lung and bilateral pleural space - s/p lumpectomy, chemotherapy and radiation - Currently on hormonal therapy Hx of malignant pleural effusion - Saturating well on room air - Patient has a Pleurx catheter in place - No significant effusion on imaging noted s/p Hypokalemia CKD3 - Cr appears to be at baseline HTN - BP well controlled - c/w Nitroglycerin ointment - Unable to provide feeding tube medications Diastolic CHF - No evidence of fluid overload - Furosemide discontinued for now (re: NPO) DM2 with Hyperglycemia - Glucose levels better controlled - c/w ISS q6h and Levemir RLE DVT / Hx of DVT - Imaging confirmed DVT again - s/p Heparin drip; s/p Xarelto - c/w Lovenox therapeutic dosing GERD - c/w Protonix IV DVT prophylaxis - c/w Lovenox therapeutic Disposition: - awaiting improvement Plan/VTE VTE Prophylaxis Ordered?: Yes VS, I&O, 24H, Fishbone Vital Signs/I&O Vital Signs Date Time Temp Pulse Resp B/P (MAP) Pulse Ox O2 Delivery O2 Flow Rate FiO2 01/31/21 10:50 136/62 01/31/21 05:36 97.9 76 18 97 Nasal Cannula 1.0 I&O- Last 24 Hours up to 6 AM 01/31/21 06:00 Intake Total 100 ml Output Total 300 ml Balance -200 ml Laboratory Data 24H LABS Laboratory Tests 2 01/30/21 11:44: Bedside Glucose (Misc Panel) 118H 01/30/21 16:33: Bedside Glucose (Misc Panel) 78L 01/30/21 20:12: Bedside Glucose (Misc Panel) 81L 01/31/21 07:31: Bedside Glucose (Misc Panel) 149H Microbiology Microbiology 01/25/21 Gram Stain - Final, Complete 01/25/21 Wound Culture - Final, Complete Pseudomonas Aeruginosa Klebsiella Pneumoniae Staphylococcus Sp Coag Neg 01/25/21 Gram Stain - Final, Complete 01/25/21 Wound Culture - Final, Complete Enterococcus Faecalis Strep Anginosus Grp 01/22/21 Urine Culture - Final, Complete FARHAD WOODY MD Jan 31, 2021 11:08
[2021-01-31] MEDS: SODIUM CHLORIDE 0.9% INJ 10 ML SYR IV PRN (12:01)
[2021-01-31 14:00] VITALS: BP 115/62
[2021-01-31] MEDS: SANTYL OINT 30GM TOP SCH (14:17)
[2021-01-31] MEDS: ASPIRIN 81 MG CHEW TABLET PEG SCH (20:30)
[2021-01-31] MEDS: SIMVASTATIN 20 MG TAB NG SCH (20:30)
[2021-01-31 22:00] VITALS: BP 126/51
[2021-02-01] MEDS: MEROPENEM INJ 1 GM in IV 1 EA IV SCH ×3 (03:25→18:07)
[2021-02-01] MEDS: ENOXAPARIN 80MG/0.8ML SYRINGE (J1650 PER 10MG) SC SCH ×2 (03:25→17:13)
[2021-02-01] MEDS: SODIUM CHLORIDE 0.9% INJ 10 ML SYR IV SCH ×2 (05:58→17:14)
[2021-02-01 06:00] VITALS: BP 147/52
[2021-02-01 06:48] LABS: HEMOGLOBIN 9.9 g/dl (12.0-15.5); MEAN CORPUSCULAR HEMOGLOBIN 29.7 pg (27.0-33.0); MEAN CORPUSCULAR HGB CONC 30.9 g/dl (32.0-36.5); MEAN CORPUSCULAR VOLUME 96.1 fl (80.0-96.0); PLATELET COUNT, AUTOMATED 208 10^3/uL (150-450); RED BLOOD COUNT 3.33 10^6/uL (4.00-5.40); WHITE BLOOD COUNT 5.1 10^3/uL (4.0-10.0)
[2021-02-01 07:12] LABS: ALBUMIN 1.8 GM/DL (3.2-5.2); BILIRUBIN,TOTAL 0.3 MG/DL (0.2-1.0); CALCIUM LEVEL 8.4 MG/DL (8.8-10.2); CREATININE FOR GFR 1.02 MG/DL (0.55-1.30); GLOMERULAR FILTRATION RATE 56.1 (>39); POTASSIUM SERUM 3.8 MEQ/L (3.5-5.1); TOTAL PROTEIN 6.2 GM/DL (6.4-8.2)
[2021-02-01] MEDS: PANTOPRAZOLE 40MG VIAL (C9113 PER 1) IV SCH (08:12)
[2021-02-01] MEDS: LEVEMIR (INSULIN DETEMIR) 1 UNITS/0.01ML SC SCH ×2 (08:13→21:30)
[2021-02-01] MEDS: HumaLOG INSULIN (NovoLOG) PER UNIT SC SCH ×4 (08:13→21:29)
[2021-02-01] MEDS: FUROSEMIDE 40 MG TAB PEG SCH (08:14)
[2021-02-01] MEDS: SANTYL OINT 30GM TOP SCH (08:15)
--- NOTE | 2021-02-01 10:03 | IPNPDOC ---
Subjective Date Seen The patient was seen on 02/01/21. Subjective Chief Complaint/HPI Bel is resting comfortably in bed, she's tolerating tube feeds. She is afebrile Objective Physical Examination General Exam: Positive: Alert, No Acute Distress Eye Exam: Positive: PERRLA, Conjunctiva & lids normal, EOMI; Negative: Sclera icteric ENT Exam: Positive: Atraumatic, Mucous membr. moist/pink, Pharynx Normal Neck Exam: Positive: Supple; Negative: JVD, thyromegaly Chest Exam: Positive: Clear to auscultation, Normal air movement Heart Exam: Positive: Rate Normal, Regular Rhythm, Normal S1, Normal S2; Negative: Murmurs, Rubs Telemetry: Positive: No significant arrhythmia Abdomen Exam: Positive: Normal bowel sounds, Soft, Other (J tube in place, PEG tube in place); Negative: Tenderness, Hepatospenomegaly Female Exam: Positive: Nl Ext Genitalia; Negative: Lesions, Discharge, Odor, Tenderness Extremity Exam: Positive: Normal pulses; Negative: Clubbing, Cyanosis, Edema Skin Exam: Positive: Nl turgor and temperature; Negative: Rash, Breakdown Neuro Exam: Positive: Normal Gait, Normal Speech, Cranial Nerves 3-12 NL, Refl exes 2+ Psych Exam: Positive: Mental status NL, Mood NL, Oriented x 3 Assessment /Plan Assessment PEG tube malfunction - Wound cultures 01/25: Evidence of pseudomonas, Klebsiella, Enterococcus faecalis, strep and staph - Meropenem (Day #4) one more day than discontinue abx; discontinued Zosyn (Completed 7 days) for intra-abdominal coverage - s/p peg replacement on 01/29/21, tolerating tube feeds Multiple pressure ulcers - MRSA screen negative - Wound cultures noted above - Advanced wound care consult with Dr. Looney - Plastic surgery on consultation; s/p bedside I+D - c/w Abx - see above - c/w dressing changes as ordered Hx of Breast CA (Stage IV) - Metastasis to lung and bilateral pleural space - s/p lumpectomy, chemotherapy and radiation - Currently on hormonal therapy Hx of malignant pleural effusion - Saturating well on room air - Patient has a Pleurx catheter in place - No significant effusion on imaging noted s/p Hypokalemia CKD3 - Cr appears to be at baseline HTN - BP well controlled - c/w Nitroglycerin ointment - Unable to provide feeding tube medications Diastolic CHF - No evidence of fluid overload - Furosemide discontinued for now (re: NPO) DM2 with Hyperglycemia - Glucose levels better controlled - c/w ISS q6h and Levemir RLE DVT / Hx of DVT - Imaging confirmed DVT again - s/p Heparin drip; s/p Xarelto - c/w Lovenox therapeutic dosing GERD - c/w Protonix IV DVT prophylaxis - c/w Lovenox therapeutic Disposition: -PT and OT consults, commence discharge planning Plan/VTE VTE Prophylaxis Ordered?: Yes VS, I&O, 24H, Fishbone Vital Signs/I&O Vital Signs Date Time Temp Pulse Resp B/P (MAP) Pulse Ox O2 Delivery O2 Flow Rate FiO2 02/01/21 08:14 121/62 02/01/21 06:00 99.7 72 20 96 Room Air 01/31/21 05:36 1.0 I&O- Last 24 Hours up to 6 AM 02/01/21 06:00 Intake Total 0 ml Output Total 850 ml Balance -850 ml Laboratory Data 24H LABS Laboratory Tests 2 01/31/21 12:04: Bedside Glucose (Misc Panel) 160H 01/31/21 17:07: Bedside Glucose (Misc Panel) 220H 01/31/21 20:23: Bedside Glucose (Misc Panel) 177H 02/01/21 06:00: Nucleated Red Blood Cells % (auto) 0.0, Anion Gap 4L, Glomerular Filtration Rate 56.1, Calcium Level 8.4L, Total Bilirubin 0.3, Aspartate Amino Transf (AST/SGOT) 11, Alanine Aminotransferase (ALT/SGPT) 21, Alkaline Phosphatase 120H, Total Protein 6.2L, Albumin 1.8L, Albumin/Globulin Ratio 0.4L CBC/BMP Laboratory Tests 02/01/21 06:00 Microbiology Microbiology 01/25/21 Gram Stain - Final, Complete 01/25/21 Wound Culture - Final, Complete Pseudomonas Aeruginosa Klebsiella Pneumoniae Staphylococcus Sp Coag Neg 01/25/21 Gram Stain - Final, Complete 01/25/21 Wound Culture - Final, Complete Enterococcus Faecalis Strep Anginosus Grp 01/22/21 Urine Culture - Final, Complete FARHAD WOODY MD Feb 01, 2021 10:03
[2021-02-01 14:00] VITALS: BP 178/71
[2021-02-01 20:51] VITALS: BP 138/56
[2021-02-01] MEDS: ASPIRIN 81 MG CHEW TABLET PEG SCH (21:28)
[2021-02-01] MEDS: SIMVASTATIN 20 MG TAB NG SCH (21:29)
[2021-02-02] MEDS: MEROPENEM INJ 1 GM in IV 1 EA IV SCH ×2 (03:16→11:55)
[2021-02-02] MEDS: ENOXAPARIN 80MG/0.8ML SYRINGE (J1650 PER 10MG) SC SCH ×2 (03:17→17:23)
[2021-02-02] MEDS: SODIUM CHLORIDE 0.9% INJ 10 ML SYR IV SCH ×2 (04:15→17:24)
[2021-02-02 04:52] LABS: HEMATOCRIT 30.1 % (36.0-47.0); HEMOGLOBIN 9.3 g/dl (12.0-15.5); MEAN CORPUSCULAR HEMOGLOBIN 29.8 pg (27.0-33.0); MEAN CORPUSCULAR HGB CONC 30.9 g/dl (32.0-36.5); MEAN CORPUSCULAR VOLUME 96.5 fl (80.0-96.0); PLATELET COUNT, AUTOMATED 199 10^3/uL (150-450); RED BLOOD COUNT 3.12 10^6/uL (4.00-5.40); WHITE BLOOD COUNT 5.1 10^3/uL (4.0-10.0)
[2021-02-02 05:16] LABS: ALBUMIN 1.8 GM/DL (3.2-5.2); ALT/SGPT 15 U/L (12-78); BILIRUBIN,TOTAL 0.2 MG/DL (0.2-1.0); BLOOD UREA NITROGEN 30 MG/DL (7-18); CALCIUM LEVEL 7.8 MG/DL (8.8-10.2); CARBON DIOXIDE LEVEL 35 MEQ/L (21-32); CHLORIDE LEVEL 107 MEQ/L (98-107); GLOMERULAR FILTRATION RATE > 60.0 (>39); GLUCOSE, FASTING 363 MG/DL (70-100); POTASSIUM SERUM 3.9 MEQ/L (3.5-5.1); SODIUM LEVEL 147 MEQ/L (136-145); TOTAL PROTEIN 5.6 GM/DL (6.4-8.2)
[2021-02-02 06:00] VITALS: BP 169/74
[2021-02-02] MEDS: LEVEMIR (INSULIN DETEMIR) 1 UNITS/0.01ML SC SCH ×2 (08:44→21:38)
[2021-02-02] MEDS: HumaLOG INSULIN (NovoLOG) PER UNIT SC SCH ×4 (08:45→20:12)
[2021-02-02] MEDS: PANTOPRAZOLE 40MG VIAL (C9113 PER 1) IV SCH (08:53)
[2021-02-02] MEDS: SANTYL OINT 30GM TOP SCH (08:53)
--- NOTE | 2021-02-02 12:36 | IPNPDOC ---
Subjective Date Seen The patient was seen on 02/02/21. Subjective Chief Complaint/HPI Resting in bed, no acute issues, tolerating TFs Objective Physical Examination General Exam: Positive: Alert, No Acute Distress Eye Exam: Positive: PERRLA, Conjunctiva & lids normal, EOMI; Negative: Sclera icteric ENT Exam: Positive: Atraumatic, Mucous membr. moist/pink, Pharynx Normal Neck Exam: Positive: Supple; Negative: JVD, thyromegaly Chest Exam: Positive: Clear to auscultation, Normal air movement Heart Exam: Positive: Rate Normal, Regular Rhythm, Normal S1, Normal S2; Negative: Murmurs, Rubs Telemetry: Positive: No significant arrhythmia Abdomen Exam: Positive: Normal bowel sounds, Soft, Other (J tube in place, PEG tube in place); Negative: Tenderness, Hepatospenomegaly Female Exam: Positive: Nl Ext Genitalia; Negative: Lesions, Discharge, Odor, Tenderness Extremity Exam: Positive: Normal pulses; Negative: Clubbing, Cyanosis, Edema Skin Exam: Positive: Nl turgor and temperature; Negative: Rash, Breakdown Neuro Exam: Positive: Normal Gait, Normal Speech, Cranial Nerves 3-12 NL, Reflexes 2+ Psych Exam: Positive: Mental status NL, Mood NL, Oriented x 3 Assessment /Plan Assessment PEG tube malfunction - Wound cultures 01/25: Evidence of pseudomonas, Klebsiella, Enterococcus faecalis, strep and staph - Meropenem (Day #5) one more day than discontinue abx; discontinued Zosyn (Completed 7 days) for intra-abdominal coverage - s/p peg replacement on 01/29/21, tolerating tube feeds Multiple pressure ulcers - MRSA screen negative - Wound cultures noted above - Advanced wound care consult with Dr. Looney - Plastic surgery on consultation; s/p bedside I+D - c/w Abx - see above - c/w dressing changes as ordered Hx of Breast CA (Stage IV) - Metastasis to lung and bilateral pleural space - s/p lumpectomy, chemotherapy and radiation - Currently on hormonal therapy Hx of malignant pleural effusion - Saturating well on room air - Patient has a Pleurx catheter in place - No significant effusion on imaging noted s/p Hypokalemia CKD3 - Cr appears to be at baseline HTN - BP well controlled - c/w Nitroglycerin ointment - Unable to provide feeding tube medications Diastolic CHF - No evidence of fluid overload - Furosemide discontinued for now (re: NPO) DM2 with Hyperglycemia - Glucose levels better controlled - c/w ISS q6h and Levemir RLE DVT / Hx of DVT - Imaging confirmed DVT again - s/p Heparin drip; s/p Xarelto - c/w Lovenox therapeutic dosing GERD - c/w Protonix IV DVT prophylaxis - c/w Lovenox therapeutic Disposition: -will need placement, ok for discharge on thursday Plan/VTE VTE Prophylaxis Ordered?: Yes VS, I&O, 24H, Fishbone Vital Signs/I&O Vital Signs Date Time Temp Pulse Resp B/P (MAP) Pulse Ox O2 Delivery O2 Flow Rate FiO2 02/02/21 08:52 171/69 02/02/21 06:00 99.6 73 18 98 Nasal Cannula 1.0 I&O- Last 24 Hours up to 6 AM 02/02/21 06:00 Intake Total 1150 ml Output Total 650 ml Balance 500 ml Laboratory Data 24H LABS Laboratory Tests 2 02/01/21 16:45: Bedside Glucose (Misc Panel) 290H 02/01/21 20:48: Bedside Glucose (Misc Panel) 285H 02/02/21 04:39: Nucleated Red Blood Cells % (auto) 0.0, Anion Gap 5L, Glomerular Filtration Rate > 60.0, Calcium Level 7.8L, Total Bilirubin 0.2, Aspartate Amino Transf (AST/SGOT) 5L, Alanine Aminotransferase (ALT/SGPT) 15, Alkaline Phosphatase 101, Total Protein 5.6L, Albumin 1.8L, Albumin/Globulin Ratio 0.5L 02/02/21 11:29: Bedside Glucose (Misc Panel) 305H CBC/BMP Laboratory Tests 02/02/21 04:39 Microbiology Microbiology 01/25/21 Gram Stain - Final, Complete 01/25/21 Wound Culture - Final, Complete Pseudomonas Aeruginosa Klebsiella Pneumoniae Staphylococcus Sp Coag Neg 01/25/21 Gram Stain - Final, Complete 01/25/21 Wound Culture - Final, Complete Enterococcus Faecalis Strep Anginosus FARHAD Gong MD Feb 02, 2021 12:36
[2021-02-02 14:00] VITALS: BP 134/70
[2021-02-02 19:50] LABS: BLOOD UREA NITROGEN 32 MG/DL (7-18); CALCIUM LEVEL 7.7 MG/DL (8.8-10.2); CARBON DIOXIDE LEVEL 33 MEQ/L (21-32); CHLORIDE LEVEL 107 MEQ/L (98-107); CREATININE FOR GFR 0.84 MG/DL (0.55-1.30); GLOMERULAR FILTRATION RATE > 60.0 (>39); GLUCOSE, FASTING 256 MG/DL (70-100); SODIUM LEVEL 144 MEQ/L (136-145)
[2021-02-02 21:02] VITALS: BP 171/68
[2021-02-02] MEDS ORDERED: ACETAMINOPHEN TAB 650MG DOSE (2X325MG) PEG PRN (21:25)
[2021-02-02] MEDS: SIMVASTATIN 20 MG TAB NG SCH (21:38)
[2021-02-02] MEDS: ASPIRIN 81 MG CHEW TABLET PEG SCH (21:39)
[2021-02-03] MEDS: HumaLOG INSULIN (NovoLOG) PER UNIT SC SCH ×4 (00:43→18:00)
[2021-02-03] MEDS: ENOXAPARIN 80MG/0.8ML SYRINGE (J1650 PER 10MG) SC SCH ×2 (04:39→17:58)
[2021-02-03] MEDS: SODIUM CHLORIDE 0.9% INJ 10 ML SYR IV SCH ×2 (04:40→17:59)
[2021-02-03 04:59] LABS: HEMATOCRIT 30.2 % (36.0-47.0); HEMOGLOBIN 9.4 g/dl (12.0-15.5); MEAN CORPUSCULAR HGB CONC 31.1 g/dl (32.0-36.5); MEAN CORPUSCULAR VOLUME 96.5 fl (80.0-96.0); PLATELET COUNT, AUTOMATED 184 10^3/uL (150-450); RED BLOOD COUNT 3.13 10^6/uL (4.00-5.40); WHITE BLOOD COUNT 5.1 10^3/uL (4.0-10.0)
[2021-02-03 05:25] LABS: ALBUMIN 1.8 GM/DL (3.2-5.2); ALT/SGPT 13 U/L (12-78); BILIRUBIN,TOTAL 0.3 MG/DL (0.2-1.0); BLOOD UREA NITROGEN 33 MG/DL (7-18); CARBON DIOXIDE LEVEL 37 MEQ/L (21-32); CHLORIDE LEVEL 105 MEQ/L (98-107); CREATININE FOR GFR 0.75 MG/DL (0.55-1.30); GLOMERULAR FILTRATION RATE > 60.0 (>39); GLUCOSE, FASTING 195 MG/DL (70-100); POTASSIUM SERUM 4.1 MEQ/L (3.5-5.1); SODIUM LEVEL 143 MEQ/L (136-145); TOTAL PROTEIN 5.6 GM/DL (6.4-8.2)
[2021-02-03 06:30] VITALS: BP 162/67
--- NOTE | 2021-02-03 09:08 | IPNPDOC ---
Subjective Date Seen The patient was seen on 02/03/21. Subjective Chief Complaint/HPI Bel is resting in bed. She continues to tolerate tube feeds well with the complications. Her blood sugars are better controlled this morning. Objective Physical Examination General Exam: Positive: No Acute Distress Eye Exam: Positive: PERRLA, Conjunctiva & lids normal, EOMI; Negative: Sclera icteric ENT Exam: Positive: Atraumatic, Mucous membr. moist/pink, Pharynx Normal Neck Exam: Positive: Supple; Negative: JVD, thyromegaly Chest Exam: Positive: Clear to auscultation, Normal air movement Heart Exam: Positive: Rate Normal, Regular Rhythm, Normal S1, Normal S2; Negative: Murmurs, Rubs Telemetry: Positive: No significant arrhythmia Abdomen Exam: Positive: Normal bowel sounds, Soft, Other (J tube in place, PEG tube in place); Negative: Tenderness, Hepatospenomegaly Female Exam: Positive: Nl Ext Genitalia; Negative: Lesions, Discharge, Odor, Tenderness Extremity Exam: Positive: Normal pulses; Negative: Clubbing, Cyanosis, Edema Skin Exam: Positive: Nl turgor and temperature; Negative: Rash, Breakdown Assessment /Plan Assessment PEG tube malfunction - Wound cultures 01/25: Evidence of pseudomonas, Klebsiella, Enterococcus faecalis, strep and staph - Meropenem (Day #5) one more day than discontinue abx; discontinued Zosyn (Completed 7 days) for intra-abdominal coverage - s/p peg replacement on 01/29/21, tolerating tube feeds Multiple pressure ulcers - MRSA screen negative - Wound cultures noted above - Advanced wound care consult with Dr. Looney - Plastic surgery on consultation; s/p bedside I+D - c/w Abx - see above - c/w dressing changes as ordered Hx of Breast CA (Stage IV) - Metastasis to lung and bilateral pleural space - s/p lumpectomy, chemotherapy and radiation - Currently on hormonal therapy Hx of malignant pleural effusion - Saturating well on room air - Patient has a Pleurx catheter in place - No significant effusion on imaging noted s/p Hypokalemia CKD3 - Cr appears to be at baseline HTN - BP well controlled - c/w Nitroglycerin ointment - Unable to provide feeding tube medications Diastolic CHF - No evidence of fluid overload - Furosemide discontinued for now (re: NPO) DM2 with Hyperglycemia - Glucose levels better controlled - c/w ISS q6h and Levemir RLE DVT / Hx of DVT - Imaging confirmed DVT again - s/p Heparin drip; s/p Xarelto - c/w Lovenox therapeutic dosing GERD - c/w Protonix IV DVT prophylaxis - c/w Lovenox therapeutic Disposition: -will need placement, ok for discharge on thursday if Plastics does not plan any further I+D Plan/VTE VTE Prophylaxis Ordered?: Yes VS, I&O, 24H, Fishbone Vital Signs/I&O Vital Signs Date Time Temp Pulse Resp B/P (MAP) Pulse Ox O2 Delivery O2 Flow Rate FiO2 02/03/21 06:30 97.8 79 162/67 (98) 98 Nasal Cannula 2.0 02/02/21 21:02 17 I&O- Last 24 Hours up to 6 AM 02/03/21 06:00 Intake Total 0 ml Output Total 1050 ml Balance -1050 ml Laboratory Data 24H LABS Laboratory Tests 2 02/02/21 11:29: Bedside Glucose (Misc Panel) 305H 02/02/21 17:06: Bedside Glucose (Misc Panel) 285H 02/02/21 19:18: Anion Gap 4L, Glomerular Filtration Rate > 60.0, Calcium Level 7.7L 02/02/21 21:00: Bedside Glucose (Misc Panel) 273H 02/03/21 00:30: Bedside Glucose (Misc Panel) 301H 02/03/21 04:41: Nucleated Red Blood Cells % (auto) 0.0, Anion Gap 1L, Glomerular Filtration Rate > 60.0, Calcium Level 8.0L, Total Bilirubin 0.3, Aspartate Amino Transf (AST/SGOT) 9, Alanine Aminotransferase (ALT/SGPT) 13, Alkaline Phosphatase 89, Total Protein 5.6L, Albumin 1.8L, Albumin/Globulin Ratio 0.5L CBC/BMP Laboratory Tests 02/02/21 19:18 02/03/21 04:41 Microbiology Microbiology 01/25/21 Gram Stain - Final, Complete 01/25/21 Wound Culture - Final, Complete Pseudomonas Aeruginosa Klebsiella Pneumoniae Staphylococcus Sp Coag Neg 01/25/21 Gram Stain - Final, Complete 01/25/21 Wound Culture - Final, Complete Enterococcus Faecalis Strep Anginosus Grp FARHAD WOODY MD Feb 03, 2021 09:08
[2021-02-03] MEDS: LEVEMIR (INSULIN DETEMIR) 1 UNITS/0.01ML SC SCH ×2 (09:10→21:00)
[2021-02-03] MEDS: PANTOPRAZOLE 40MG VIAL (C9113 PER 1) IV SCH (09:11)
[2021-02-03] MEDS: SANTYL OINT 30GM TOP SCH (09:11)
[2021-02-03 14:00] VITALS: BP 148/70
[2021-02-03] MEDS: ASPIRIN 81 MG CHEW TABLET PEG SCH (20:27)
[2021-02-03] MEDS: SIMVASTATIN 20 MG TAB NG SCH (20:27)
[2021-02-03 21:00] VITALS: BP 124/92
[2021-02-04] MEDS: HumaLOG INSULIN (NovoLOG) PER UNIT SC SCH ×4 (00:23→17:13)
[2021-02-04] MEDS: ENOXAPARIN 80MG/0.8ML SYRINGE (J1650 PER 10MG) SC SCH ×2 (04:47→15:43)
[2021-02-04] MEDS: SODIUM CHLORIDE 0.9% INJ 10 ML SYR IV SCH ×2 (04:48→17:14)
[2021-02-04 05:03] LABS: HEMOGLOBIN 9.6 g/dl (12.0-15.5); MEAN CORPUSCULAR HEMOGLOBIN 29.7 pg (27.0-33.0); PLATELET COUNT, AUTOMATED 197 10^3/uL (150-450); RED BLOOD COUNT 3.23 10^6/uL (4.00-5.40)
[2021-02-04 05:26] LABS: ALBUMIN 1.8 GM/DL (3.2-5.2); ALT/SGPT 14 U/L (12-78); BILIRUBIN,TOTAL 0.3 MG/DL (0.2-1.0); BLOOD UREA NITROGEN 36 MG/DL (7-18); CALCIUM LEVEL 8.4 MG/DL (8.8-10.2); CARBON DIOXIDE LEVEL 35 MEQ/L (21-32); CHLORIDE LEVEL 102 MEQ/L (98-107); GLOMERULAR FILTRATION RATE > 60.0 (>39); GLUCOSE, FASTING 272 MG/DL (70-100); POTASSIUM SERUM 4.5 MEQ/L (3.5-5.1); SODIUM LEVEL 140 MEQ/L (136-145); TOTAL PROTEIN 6.3 GM/DL (6.4-8.2)
[2021-02-04 06:00] VITALS: BP 153/69
[2021-02-04] MEDS: SANTYL OINT 30GM TOP SCH (09:52)
[2021-02-04] MEDS: PANTOPRAZOLE 40MG VIAL (C9113 PER 1) IV SCH (09:52)
[2021-02-04] MEDS: LEVEMIR (INSULIN DETEMIR) 1 UNITS/0.01ML SC SCH ×2 (09:52→22:44)
[2021-02-04] MEDS: NYSTATIN 100,000 UNITS/GM TOPICAL PWD 15 GM TOP SCH (12:04)
--- NOTE | 2021-02-04 12:32 | IPNPDOC ---
Subjective Date Seen The patient was seen on 02/04/21. Subjective Chief Complaint/HPI Bel is stable this morning. No overnight events. He continues to tolerate her tube feeds well. She continues to have some incisional tenderness at the site of the PEG tube. Objective Physical Examination General Exam: Positive: No Acute Distress Eye Exam: Positive: PERRLA, Conjunctiva & lids normal, EOMI; Negative: Sclera icteric ENT Exam: Positive: Atraumatic, Mucous membr. moist/pink, Pharynx Normal Neck Exam: Positive: Supple; Negative: JVD, thyromegaly Chest Exam: Positive: Clear to auscultation, Normal air movement Heart Exam: Positive: Rate Normal, Regular Rhythm, Normal S1, Normal S2; Negative: Murmurs, Rubs Telemetry: Positive: No significant arrhythmia Abdomen Exam: Positive: Normal bowel sounds, Soft, Other (J tube in place, PEG tube in place); Negative: Tenderness, Hepatospenomegaly Female Exam: Positive: Nl Ext Genitalia; Negative: Lesions, Discharge, Odor, Tenderness Extremity Exam: Positive: Normal pulses; Negative: Clubbing, Cyanosis, Edema Skin Exam: Positive: Nl turgor and temperature; Negative: Rash, Breakdown Assessment /Plan Assessment PEG tube malfunction - Wound cultures 01/25: Evidence of pseudomonas, Klebsiella, Enterococcus faecalis, strep and staph - completed Meropenem 6 days; and previously received Zosyn (Completed 7 days) for intra-abdominal coverage - s/p peg replacement on 01/29/21, tolerating tube feeds Multiple pressure ulcers - MRSA screen negative - Wound cultures noted above - Advanced wound care consult with Dr. Looney - Plastic surgery on consultation; s/p bedside I+D 1 week prior, d/w Dr. Mcintyre will see in am to assess wounds - c/w dressing changes as ordered Hx of Breast CA (Stage IV) - Metastasis to lung and bilateral pleural space - s/p lumpectomy, chemotherapy and radiation - Currently on hormonal therapy Hx of malignant pleural effusion - Saturating well on room air - Patient has a Pleurx catheter in place - No significant effusion on imaging noted s/p Hypokalemia CKD3 - Cr appears to be at baseline HTN - home meds reviewed Diastolic CHF - No evidence of fluid overload - holding furosemide DM2 with Hyperglycemia - increase levemir - continue SS RLE DVT / Hx of DVT - Imaging confirmed DVT again - s/p Heparin drip; s/p Xarelto - c/w Lovenox therapeutic dosing GERD - c/w Protonix IV DVT prophylaxis - c/w Lovenox therapeutic Disposition: -will need placement likely thursday, plastics will see tomorrow Plan/VTE VTE Prophylaxis Ordered?: Yes VS, I&O, 24H, Fishbone Vital Signs/I&O Vital Signs Date Time Temp Pulse Resp B/P (MAP) Pulse Ox O2 Delivery O2 Flow Rate FiO2 02/04/21 09:51 152/68 02/04/21 06:00 98.4 77 18 96 Room Air 02/03/21 14:00 2.0 I&O- Last 24 Hours up to 6 AM 02/04/21 06:00 Intake Total 0 ml Output Total 500 ml Balance -500 ml Laboratory Data 24H LABS Laboratory Tests 2 02/03/21 17:04: Bedside Glucose (Misc Panel) 167H 02/03/21 20:21: Bedside Glucose (Misc Panel) 88 02/04/21 00:16: Bedside Glucose (Misc Panel) 174H 02/04/21 04:52: Nucleated Red Blood Cells % (auto) 0.0, Anion Gap 3L, Glomerular Filtration Rate > 60.0, Calcium Level 8.4L, Total Bilirubin 0.3, Aspartate Amino Transf (AST/SGOT) 10, Alanine Aminotransferase (ALT/SGPT) 14, Alkaline Phosphatase 97, Total Protein 6.3L, Albumin 1.8L, Albumin/Globulin Ratio 0.4L 02/04/21 11:23: Bedside Glucose (Misc Panel) 369H CBC/BMP Laboratory Tests 02/04/21 04:52 Microbiology Microbiology 01/25/21 Gram Stain - Final, Complete 01/25/21 Wound Culture - Final, Complete Pseudomonas Aeruginosa Klebsiella Pneumoniae Staphylococcus Sp Coag Neg 01/25/21 Gram Stain - Final, Complete 01/25/21 Wound Culture - Final, Complete Enterococcus Faecalis Strep Anginosus FARHAD Gong MD Feb 04, 2021 12:32
[2021-02-04 14:00] VITALS: BP 145/71
[2021-02-04 22:31] VITALS: BP 132/99
[2021-02-04] MEDS: SIMVASTATIN 20 MG TAB NG SCH (22:43)
[2021-02-04] MEDS: ASPIRIN 81 MG CHEW TABLET PEG SCH (22:44)
[2021-02-05] MEDS: HumaLOG INSULIN (NovoLOG) PER UNIT SC SCH ×4 (01:31→17:41)
[2021-02-05] MEDS: ENOXAPARIN 80MG/0.8ML SYRINGE (J1650 PER 10MG) SC SCH ×2 (05:05→17:41)
[2021-02-05] MEDS: SODIUM CHLORIDE 0.9% INJ 10 ML SYR IV SCH ×2 (05:05→17:42)
[2021-02-05 05:29] LABS: HEMOGLOBIN 9.6 g/dl (12.0-15.5); MEAN CORPUSCULAR HEMOGLOBIN 30.2 pg (27.0-33.0); MEAN CORPUSCULAR VOLUME 94.3 fl (80.0-96.0); PLATELET COUNT, AUTOMATED 185 10^3/uL (150-450); RED BLOOD COUNT 3.18 10^6/uL (4.00-5.40); WHITE BLOOD COUNT 4.9 10^3/uL (4.0-10.0)
[2021-02-05 05:55] LABS: ALBUMIN 1.9 GM/DL (3.2-5.2); ALT/SGPT 11 U/L (12-78); BILIRUBIN,TOTAL 0.3 MG/DL (0.2-1.0); BLOOD UREA NITROGEN 37 MG/DL (7-18); CALCIUM LEVEL 8.1 MG/DL (8.8-10.2); CARBON DIOXIDE LEVEL 35 MEQ/L (21-32); CHLORIDE LEVEL 104 MEQ/L (98-107); CREATININE FOR GFR 0.76 MG/DL (0.55-1.30); GLOMERULAR FILTRATION RATE > 60.0 (>39); GLUCOSE, FASTING 159 MG/DL (70-100); POTASSIUM SERUM 4.2 MEQ/L (3.5-5.1); SODIUM LEVEL 142 MEQ/L (136-145); TOTAL PROTEIN 5.8 GM/DL (6.4-8.2)
[2021-02-05 06:00] VITALS: BP 131/58
[2021-02-05] MEDS: PANTOPRAZOLE 40MG VIAL (C9113 PER 1) IV SCH (10:01)
[2021-02-05] MEDS: SODIUM CHLORIDE 0.9% INJ 10 ML SYR IV PRN (10:02)
[2021-02-05] MEDS: LEVEMIR (INSULIN DETEMIR) 1 UNITS/0.01ML SC SCH ×2 (10:02→22:06)
[2021-02-05] MEDS: NYSTATIN 100,000 UNITS/GM TOPICAL PWD 15 GM TOP SCH (10:03)
[2021-02-05] MEDS: SANTYL OINT 30GM TOP SCH (12:44)
[2021-02-05 14:40] VITALS: BP 130/52
--- NOTE | 2021-02-05 16:13 | IPNPDOC ---
Subjective Date Seen The patient was seen on 02/05/21. Subjective Chief Complaint/HPI Ms. Santiago is doing well today. She has no acute complaints. Nursing reports she is tolerating her tube feeds well. We anticipate that she will see plastic surgery for further evaluation of her decubitus ulcers today. Constitutional: Denies: Chills, Fever Pulmonary: Denies: Dyspnea, Cough Gastrointestinal: Denies: Nausea, Vomiting Objective Physical Examination General Exam: Positive: Alert, No Acute Distress Eye Exam: Positive: PERRLA, Conjunctiva & lids normal, EOMI; Negative: Sclera icteric ENT Exam: Positive: Atraumatic, Mucous membr. moist/pink, Pharynx Normal Neck Exam: Positive: Supple; Negative: Lymphadenopathy Chest Exam: Positive: Clear to auscultation, Normal air movement Heart Exam: Positive: Rate Normal, Regular Rhythm, Normal S1, Normal S2 Telemetry: Positive: No significant arrhythmia Abdomen Exam: Positive: Normal bowel sounds, Soft, Other (J tube in place, PEG tube in place); Negative: Tenderness, Hepatospenomegaly Extremity Exam: Negative: Edema, Tenderness, Swelling Skin Exam: Positive: Other skin issue (Decubitus ulcers with some eschar on them) Assessment /Plan Assessment PEG tube malfunction - s/p peg replacement on 01/29/21, tolerating tube feeds Multiple pressure ulcers - Plastic surgery on consultation is anticipated today to assess wounds - MRSA screen negative - Wound cultures noted above - Advanced wound care consult with Dr. Looney on outpatient basis Hx of Breast CA (Stage IV) - Metastasis to lung and bilateral pleural space - s/p lumpectomy, chemotherapy and radiation - Currently on hormonal therapy Hx of malignant pleural effusion - Saturating well on room air - Patient has a Pleurx catheter in place - No significant effusion on imaging noted s/p Hypokalemia CKD3 - Cr appears to be at baseline HTN -Continue current home medications Diastolic CHF - No evidence of fluid overload - holding furosemide DM2 with Hyperglycemia - increase levemir - continue SS RLE DVT / Hx of DVT - Imaging confirmed DVT again - s/p Heparin drip; s/p Xarelto - c/w Lovenox therapeutic dosing GERD - c/w Protonix IV DVT prophylaxis - c/w Lovenox therapeutic Plan/VTE VTE Prophylaxis Ordered?: Yes Disposition We can probably transfer her in the next day or 2 depending on what plastic surgery says. VS, I&O, 24H, Fishbone Vital Signs/I&O Vital Signs Date Time Temp Pulse Resp B/P (MAP) Pulse Ox O2 Delivery O2 Flow Rate FiO2 02/05/21 14:40 98.3 76 20 130/52 (78) 92 02/05/21 06:00 Room Air 02/03/21 14:00 2.0 I&O- Last 24 Hours up to 6 AM 02/05/21 06:00 Intake Total 0 ml Output Total 500 ml Balance -500 ml Laboratory Data 24H LABS Laboratory Tests 2 02/04/21 16:16: Bedside Glucose (Misc Panel) 255H 02/04/21 22:27: Bedside Glucose (Misc Panel) 221H 02/05/21 01:20: Bedside Glucose (Misc Panel) 246H 02/05/21 05:00: Nucleated Red Blood Cells % (auto) 0.0, Anion Gap 3L, Glomerular Filtration Rate > 60.0, Calcium Level 8.1L, Total Bilirubin 0.3, Aspartate Amino Transf (AST/SGOT) 8, Alanine Aminotransferase (ALT/SGPT) 11L, Alkaline Phosphatase 95, Total Protein 5.8L, Albumin 1.9L, Albumin/Globulin Ratio 0.5L 02/05/21 11:57: Bedside Glucose (Misc Panel) 192H CBC/BMP Laboratory Tests 02/05/21 05:00 Shaun Silvestre MD Feb 05, 2021 16:13
--- NOTE | 2021-02-05 16:30 | IPNPDOC ---
Subjective General Date Seen: Feb 05, 2021 Subject Chief Complaint/History The patient is a 75-year-old female admitted with a reason for visit of Peg Tube Malfunction, Dysphagia, Aspiration. Patient seen and examined at bedside. She states she is feeling well. She has been doing well with dressing changes and offloading her wounds. Current Medications Current Medications Current Medications Medications (Trade) Dose Ordered Sig/Joseph Route PRN Reason Start Time Stop Time Status Last Admin Dose Admin Acetaminophen (Tylenol Suppository) 650 mg Q4HP PRN LA MILD PAIN or TEMP > 101 01/27/21 22:05 02/02/21 21:26 DC 01/31/21 23:05 Acetaminophen (Tylenol Tab) 650 mg Q4HP PRN PEG MILD PAIN or TEMP > 101 02/02/21 21:25 02/02/21 21:39 Amino Ac/Electrol/ Dextrose/Calcium 1,000 ml @ 60 mls/hr [id number] IV 01/22/21 18:00 01/23/21 17:59 DC 01/23/21 10:09 Amino Ac/Electrol/ Dextrose/Calcium 2,000 ml @ 60 mls/hr ONCE@1800 IV 01/23/21 18:00 01/24/21 17:59 DC 01/23/21 20:15 Amino Ac/Electrol/ Dextrose/Calcium 2,000 ml @ 60 mls/hr ONCE@1800 IV 01/23/21 18:42 01/23/21 18:44 DC Amino Ac/Electrol/ Dextrose/Calcium 2,000 ml @ 60 mls/hr ONCE@1800 IV 01/24/21 18:00 01/25/21 17:59 DC 01/24/21 18:42 Amino Ac/Electrol/ Dextrose/Calcium 2,000 ml @ 60 mls/hr ONCE@1800 IV 01/26/21 18:00 01/27/21 17:59 DC 01/26/21 17:43 Amino Ac/Electrol/ Dextrose/Calcium 2,000 ml @ 60 mls/hr ONCE@1800 IV 01/27/21 18:00 01/28/21 17:59 DC 01/27/21 17:32 Aspirin (Aspirin Chewable) 81 mg QHS PEG 01/31/21 21:00 02/04/21 22:44 Collagenase (SantyL) Apply to both Rt hip wou... DAILY TOP 01/24/21 09:00 02/05/21 12:44 Dextrose (Dextrose 50%) 25 ml ASDIRECTED PRN IV SEE LABEL COMMENTS 01/21/21 17:45 Dextrose/Sodium Chloride 1,000 ml @ 100 mls/hr Q10H IV 01/21/21 17:10 01/22/21 03:09 DC 01/21/21 20:40 Enoxaparin Sodium (Lovenox) 70 mg Q12H SC 01/21/21 23:15 01/22/21 01:13 DC Enoxaparin Sodium (Lovenox) 70 mg Q12H SC 01/22/21 16:00 02/05/21 05:05 Fat Emulsion Intravenous 500 ml @ 20 mls/hr ONCE@1800 IV 01/22/21 18:00 01/23/21 17:59 DC 01/22/21 18:51 Fat Emulsion Intravenous 500 ml @ 20 mls/hr ONCE@1800 IV 01/23/21 18:00 01/24/21 17:59 DC 01/23/21 20:14 Fat Emulsion Intravenous 500 ml @ 20 mls/hr ONCE@1800 IV 01/24/21 18:00 01/25/21 17:59 DC 01/24/21 18:42 Fat Emulsion Intravenous 500 ml @ 20 mls/hr ONCE@1800 IV 01/25/21 18:00 01/26/21 17:59 DC 01/25/21 18:17 Fat Emulsion Intravenous 500 ml @ 20 mls/hr ONCE@1800 IV 01/26/21 18:00 01/27/21 17:59 DC 01/26/21 17:43 Fat Emulsion Intravenous 500 ml @ 20 mls/hr ONCE@1800 IV 01/27/21 18:00 01/28/21 17:59 DC 01/27/21 17:31 Fat Emulsion Intravenous 500 ml @ 20 mls/hr ONCE@1800 IV 01/28/21 18:00 01/29/21 17:59 DC 01/28/21 18:01 Furosemide (Lasix) 40 mg DAILY NG 01/22/21 09:00 01/22/21 14:45 DC Furosemide (Lasix) 40 mg DAILY PEG 01/31/21 09:00 02/02/21 07:47 DC 02/01/21 08:14 Glucagon (Glucagon) 1 mg ASDIRECTED PRN SC SEE LABEL COMMENTS 01/21/21 17:45 Glucose (Glucose) 16 GM ASDIRECTED PRN PO SEE LABEL COMMENTS 01/21/21 17:45 Heparin Sodium (Heparin (Flush)) 200 units ASDIRECTED PRN IV SEE LABEL COMMENTS 01/23/21 18:30 02/05/21 10:02 Heparin Sodium (Heparin (Flush)) 200 units PICC IV 01/24/21 06:00 02/05/21 05:05 Heparin Sodium (Porcine) (Heparin) ASDIRECTED PRN IV SEE LABEL COMMENTS 01/21/21 23:20 01/22/21 14:45 DC Heparin Sodium (Porcine) 51340 units/IV Miscellaneous Supplies 250 ml @ 0 mls/hr Q0M IV 01/21/21 23:20 01/22/21 14:45 DC 01/22/21 02:35 Home Med (Med Rec Complete!) ASDIRECTED XX 01/21/21 21:00 01/21/21 21:00 DC Insulin Detemir (Levemir Insulin) 15 units BID SC 01/25/21 09:00 02/02/21 07:46 DC 02/01/21 21:30 Insulin Detemir (Levemir Insulin) 25 units BID SC 02/02/21 09:00 02/04/21 07:37 DC 02/03/21 09:10 Insulin Detemir (Levemir Insulin) 30 units BID SC 02/04/21 09:00 02/05/21 10:02 Insulin Human Lispro (HumaLOG INSULIN) SEE PROTOCOL TABLE AC IN 01/21/21 17:30 02/02/21 19:36 DC 02/02/21 17:24 Insulin Human Lispro (HumaLOG INSULIN) SEE PROTOCOL TABLE Q6H IN 02/02/21 18:00 02/05/21 12:44 Insulin Human Lispro (HumaLOG INSULIN) SEE PROTOCOL TABLE QHS IN 01/21/21 21:00 02/02/21 19:36 DC 02/01/21 21:29 Insulin Human Lispro (HumaLOG INSULIN) See Protocol Table Q6H IN 01/22/21 18:00 01/23/21 12:01 DC 01/23/21 12:30 Insulin Human Lispro (HumaLOG INSULIN) See Protocol Table Q6H IN 01/23/21 18:00 01/24/21 17:59 DC 01/24/21 12:36 Insulin Human Lispro (HumaLOG INSULIN) See Protocol Table Q6H IN 01/24/21 18:00 01/25/21 12:01 DC 01/25/21 12:20 Insulin Human Lispro (HumaLOG INSULIN) See Protocol Table Q6H IN 01/25/21 18:00 01/26/21 12:01 DC 01/26/21 11:36 Insulin Human Lispro (HumaLOG INSULIN) See Protocol Table Q6H IN 01/26/21 18:00 01/27/21 12:01 DC 01/27/21 12:49 Insulin Human Lispro (HumaLOG INSULIN) See Protocol Table Q6H IN 01/27/21 18:00 01/28/21 12:01 DC 01/28/21 12:02 Insulin Human Lispro (HumaLOG INSULIN) See Protocol Table Q6H IN 01/28/21 18:00 01/29/21 12:01 DC 01/29/21 12:33 Lactated Ringer's 1,000 ml @ 50 mls/hr Q20H IV 01/29/21 14:20 01/29/21 16:20 DC Lisinopril (Prinivil) 20 mg DAILY NG 01/22/21 09:00 02/05/21 10:00 Meropenem 1 gm/IV Miscellaneous Supplies 50 ml @ 100 mls/hr Q8H IV 01/28/21 11:00 02/02/21 12:31 DC 02/02/21 11:55 Multivitamins 10 ml/Chromium/ Copper/Manganese/ Seleni/Zn 1 ml/ Amino Ac/Electrol/ Dextrose/Calcium 2,011 ml @ 60 mls/hr ONCE@1800 IV 01/23/21 18:00 01/23/21 18:42 DC Multivitamins 10 ml/Chromium/ Copper/Manganese/ Seleni/Zn 1 ml/ Amino Ac/Electrol/ Dextrose/Calcium 2,011 ml @ 60 mls/hr ONCE@1800 IV 01/25/21 18:00 01/26/21 17:59 DC 01/25/21 18:16 Multivitamins 10 ml/Chromium/ Copper/Manganese/ Seleni/Zn 1 ml/ Potassium Chloride 55.6 meq/ Amino Ac/Electrol/ Dextrose/Calcium 2,038.8 ml @ 1 mls/hr ONCE@1800 IV 01/28/21 18:00 01/29/21 17:59 DC 01/28/21 18:01 Nitroglycerin (Nitrobid 2%) hold for sbp<120 dc one... Q6H TOP 01/21/21 21:00 01/31/21 10:02 DC 01/31/21 03:11 Non-Formulary Medication (Heparin Iv Rate Change Documentation ml/ Hr) ASDIRECTED XX 01/21/21 23:20 01/22/21 14:45 DC Nystatin (Mycostatin Powder, Nystop) 1 dose DAILY TOP 02/04/21 09:00 02/05/21 10:03 Omeprazole (First-Omeprazole ORAL SUSPENSION) 20 mg DAILY GT 01/22/21 09:00 01/22/21 14:45 DC Ondansetron HCl (ZOFRAN INJection) 4 mg Q4HP PRN IV NAUSEA OR VOMITING 01/29/21 14:20 01/29/21 16:20 DC Oxycodone/ Acetaminophen (Percocet 5mg/ 325mg Tablet) 1 tab Q6HP PRN PEG MODERATE PAIN (PS 5-7) 01/29/21 20:00 02/03/21 12:31 DC 01/29/21 21:23 Pantoprazole Sodium (Protonix) 40 mg DAILY IV 01/22/21 09:00 02/05/21 10:01 Piperacillin Sod/ Tazobactam Sod 2.25 gm/Dextrose 50 ml @ 100 mls/hr Q6H IV 01/21/21 21:00 01/28/21 10:08 DC 01/28/21 09:01 Potassium Chloride 10 meq/ IV Miscellaneous Supplies 100 ml @ 100 mls/hr Q1H IV 01/23/21 11:00 01/23/21 13:59 DC Potassium Chloride 10 meq/ IV Miscellaneous Supplies 100 ml @ 100 mls/hr Q1H IV 01/23/21 18:00 01/23/21 20:59 DC 01/23/21 20:54 Potassium Chloride 10 meq/ IV Miscellaneous Supplies 100 ml @ 100 mls/hr Q1H IV 01/24/21 11:00 01/24/21 13:59 DC 01/24/21 13:42 Potassium Chloride 10 meq/ IV Miscellaneous Supplies 100 ml @ 100 mls/hr Q1H IV 01/28/21 11:00 01/28/21 13:59 DC 01/28/21 14:55 Simvastatin (Zocor) 20 mg QHS NG 01/21/21 21:00 02/04/21 22:43 Sodium Chloride (Saline Lock Flush) 10 ml ASDIRECTED PRN IV SEE LABEL COMMENTS 01/23/21 18:30 02/05/21 10:02 Sodium Chloride (Saline Lock Flush) 10 ml PICC IV 01/24/21 06:00 02/05/21 05:05 Allergies Coded Allergies: adhesive tape (Verified Allergy, Intermediate, rash, 12/14/20) exenatide (Verified Adverse Reaction, Mild, itching, 12/25/20) Objective Physical Examination Examination GENERAL APPEARANCE:Patient seen, laying in bed, awake, alert, and oriented. Comfortable, in no acute distress. SKIN: Warm and moist. Right hip/lower abdomen wound 11x6 cm cluster 30% skin, 40% clean granulating tissue, 30% necrosis. No odor. Right knee 6x3.5 cm cluster wound with 20% skin, 10% granulating tissue, eschar the rest 70 %. No signs of infection. NECK: Supple, no thyromegaly. No obvious jugular venous distention. LUNGS: Clear to auscultation bilaterally. No wheezing appreciated. HEART: No chest wall abnormalities. Regular rate and rhythm with no murmurs appreciated. ABDOMEN: Abdomen is soft, non-tender, non-distended. EXTREMITIES: No edema identified. No calf tenderness. Vital Signs Vital Signs Date Time Temp Pulse Resp B/P (MAP) Pulse Ox O2 Delivery O2 Flow Rate FiO2 02/05/21 14:40 98.3 76 20 130/52 (78) 92 02/05/21 06:00 Room Air 02/03/21 14:00 2.0 I&Os I&O- Last 24 Hours up to 6 AM 02/05/21 06:00 Intake Total 0 ml Output Total 500 ml Balance -500 ml Laboratory Data Labs 24H Laboratory Tests 2 02/04/21 22:27: Bedside Glucose (Misc Panel) 221H 02/05/21 01:20: Bedside Glucose (Misc Panel) 246H 02/05/21 05:00: Nucleated Red Blood Cells % (auto) 0.0, Anion Gap 3L, Glomerular Filtration Rate > 60.0, Calcium Level 8.1L, Total Bilirubin 0.3, Aspartate Amino Transf (AST/SGOT) 8, Alanine Aminotransferase (ALT/SGPT) 11L, Alkaline Phosphatase 95, Total Protein 5.8L, Albumin 1.9L, Albumin/Globulin Ratio 0.5L 02/05/21 11:57: Bedside Glucose (Misc Panel) 192H CBC/BMP Laboratory Tests 02/05/21 05:00 Impression Informed consent obtained from the patient verbally in presence of the nurse. It was documented. Timeout taken. Right hip/lower abdomen wound was debrided using 15 blade. Excisional debridement is done to subcutaneous level removing necrotic subcutaneous tissue until the level of the muscle. Patient tolerated procedure well. We will continue with daily Santyl treatments to the right hip/lower abdomen wou nd which has improved. Continue Betadine paint to the right lateral knee wound. Patient to follow-up in wound care center after discharge. Plan / VTE VTE Prophylaxis Ordered?: Yes JORI KIRAN DO Feb 05, 2021 16:30
[2021-02-05] MEDS: SIMVASTATIN 20 MG TAB NG SCH (21:00)
[2021-02-05 22:00] VITALS: BP 132/52
[2021-02-05] MEDS: ASPIRIN 81 MG CHEW TABLET PEG SCH (22:07)
[2021-02-06] MEDS: HumaLOG INSULIN (NovoLOG) PER UNIT SC SCH ×3 (01:09→11:52)
[2021-02-06] MEDS: ENOXAPARIN 80MG/0.8ML SYRINGE (J1650 PER 10MG) SC SCH (04:41)
[2021-02-06 05:51] LABS: HEMATOCRIT 30.3 % (36.0-47.0); HEMOGLOBIN 9.5 g/dl (12.0-15.5); MEAN CORPUSCULAR HEMOGLOBIN 30.4 pg (27.0-33.0); MEAN CORPUSCULAR HGB CONC 31.4 g/dl (32.0-36.5); MEAN CORPUSCULAR VOLUME 96.8 fl (80.0-96.0); PLATELET COUNT, AUTOMATED 197 10^3/uL (150-450); RED BLOOD COUNT 3.13 10^6/uL (4.00-5.40); WHITE BLOOD COUNT 5.5 10^3/uL (4.0-10.0)
[2021-02-06 06:00] VITALS: BP 150/64
[2021-02-06 06:17] LABS: CALCIUM LEVEL 8.4 MG/DL (8.8-10.2); CREATININE FOR GFR 0.97 MG/DL (0.55-1.30); GLOMERULAR FILTRATION RATE 59.4 (>39); POTASSIUM SERUM 4.7 MEQ/L (3.5-5.1)
[2021-02-06] MEDS: SODIUM CHLORIDE 0.9% INJ 10 ML SYR IV SCH (06:36)
[2021-02-06 10:33] VITALS: BP 150/64
[2021-02-06] MEDS: PANTOPRAZOLE 40MG VIAL (C9113 PER 1) IV SCH (10:33)
[2021-02-06] MEDS: LEVEMIR (INSULIN DETEMIR) 1 UNITS/0.01ML SC SCH (10:33)
[2021-02-06] MEDS: NYSTATIN 100,000 UNITS/GM TOPICAL PWD 15 GM TOP SCH (10:34)
[2021-02-06] MEDS: SANTYL OINT 30GM TOP SCH (10:34)
[2021-02-06] MEDS ORDERED: LISI20TA33 NG (10:49)
[2021-02-06] MEDS ORDERED: SANT250O8 TOP (10:49)
[2021-02-06] MEDS ORDERED: SIMV20TA22 NG (10:49)
--- NOTE | 2021-02-06 10:51 | DS.PDOC ---
Discharge Summary General Date of Admission Jan 21, 2021 at 17:09 Date of Discharge 02/06/2021 Primary Care Physician: Myles Barber MD Attending Physician: Shaun Silvestre MD Specialist/Consultants Involve: RODOLFO AGUAYO MD Specialist/Consultants Involve Dr. Mcintyre, Plastic Surgery Discharge Summary ADMITTING DIAGNOSES: 1. PEG tube malfunction. 2. History of right breast metastatic cancer, treated with hormonal therapy, chronic malignant pleural effusion with a Pleurx catheter. 3. CKD stage IV. 4. Hypertension, uncontrolled. 5. Diastolic heart failure. DISCHARGE DIAGNOSES: 1. PEG tube malfunction, status post replacement on 01/29. 2. Multiple pressure ulcers. 3. History of stage IV breast cancer. 4. History of malignant pleural effusion. 5. Status post hypokalemia. 6. CKD 3. 7. Hypertension. 8. Diastolic congestive heart failure. 9. Type 2 diabetes with hyperglycemia. 10. 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 11. GERD. PROCEDURES PERFORMED DURING STAY: EGD with PEG tube placement, I&D of abdominal abscess, PICC line insertion. ADMISSION HISTORY: Ms. Santiago was brought to our facility from [place] due to a malfunctioning feeding tube. Please see the admission history and physical for the remaining details. HOSPITAL COURSE: Ms. Santiago was brought to the hospital for problems with her PEG tube. This was corrected and changed out on 01/29. Unfortunately she had an infection following this and ended up on both meropenem and Zosyn. Additionally she had multiple pressure ulcers that I believe were present on admission. She will be following with Dr. Looney. Dr. Mcintyre, plastic surgery, did see her while here in the hospital. DISCHARGE CONDITION: Stable. FOLLOW-UP: Prior to discharge an appointment was scheduled with Dr. Barber on February 13 at 10 AM. ACTIVITY: Per physical therapy. DIET: Tube feeds. DISCHARGE MEDICATIONS: Please see below. ALLERGIES: Please see below. LABORATORY DATA: Please see below. IMAGING: CT of the abdomen and pelvis, 3 chest x-rays, venous Doppler ultrasound of bilateral legs TIME SPENT ON DISCHARGE: Greater than 20 minutes. Vital Signs/I&Os Vital Signs Date Time Temp Pulse Resp B/P (MAP) Pulse Ox O2 Delivery O2 Flow Rate FiO2 02/06/21 10:33 150/64 02/06/21 06:00 99.0 71 20 96 Room Air 02/03/21 14:00 2.0 I&O- Last 24 Hours up to 6 AM 02/06/21 06:00 Intake Total 1180 ml Balance 1180 ml Laboratory Data Labs 24H Laboratory Tests 2 02/05/21 11:57: Bedside Glucose (Misc Panel) 192H 02/05/21 16:39: Bedside Glucose (Misc Panel) 181H 02/05/21 20:44: Bedside Glucose (Misc Panel) 109 02/06/21 01:02: Bedside Glucose (Misc Panel) 124H 02/06/21 05:29: Nucleated Red Blood Cells % (auto) 0.0, Anion Gap 3L, Glomerular Filtration Rate 59.4, Calcium Level 8.4L CBC/BMP Laboratory Tests 02/06/21 05:29 FSBS Laboratory Tests Test 02/05/21 11:57 02/05/21 16:39 02/05/21 20:44 02/06/21 01:02 Range/Units Bedside Glucose (Misc Panel) 192 181 109 124 83-110 MG/DL Discharge Medications Scheduled Aspirin (Aspirin) 81 Mg Tab.chew, 81 MG GT DAILY, (Reported) Collagenase Clostridium Hist. (Santyl) 30 Gm Oint...g., 1 DOSE TOP QPM, (Reported) APPLY TO SACRAL WOUND Furosemide (Furosemide) 40 Mg Tablet, 40 MG GT DAILY, (Reported) Insulin Glargine,Hum.rec.anlog (Semglee Pen) 100 Unit/Ml (3 Ml) Insuln.pen, 20 UNIT SQ DAILY, (Reported) Insulin Lispro (Admelog Solostar) 100 Unit/1 Ml Insuln.pen, 1 DOSE SQ AC, (Reported) PER SLIDING SCALE Lisinopril (Lisinopril) 20 Mg Tablet, 20 MG GT DAILY, (Reported) Simvastatin (Simvastatin) 20 Mg Tablet, 20 MG GT QHS, (Reported) [Prilosec Suspension] , 20 ML GT BID, (Reported) Scheduled PRN Acetaminophen (Tylenol) 325 Mg Tablet, 650 MG GT Q4H PRN for PAIN LEVEL 1-6, (Reported) Allergies Coded Allergies: adhesive tape (Verified Allergy, Intermediate, rash, 12/14/20) exenatide (Verified Adverse Reaction, Mild, itching, 12/25/20) Shaun Silvestre MD Feb 06, 2021 10:51
[2021-02-06 14:00] VITALS: BP 138/59
--- NOTE | 2021-02-13 13:06 | ROOR ---
Patient Name: Bel Santiago Procedure Date: 01/29/2021 1:14 PM Date of : 1945 Age: 75 Gender: Female Note Status: Finalized Procedure: Upper GI endoscopy Indications: Place PEG due to dysphagia Providers: Brayan Banks MD Referring MD: 2. Inpatient 2. Inpatient Requesting Provider: Medicines: Monitored Anesthesia Care Complications: No immediate complications. Procedure: Pre-Anesthesia Assessment: - Prior to the procedure, a History and Physical was performed, and patient medications and allergies were reviewed. The patient is competent. The risks and benefits of the procedure and the sedation options and risks were discussed with the patient. All questions were answered and informed consent was obtained. Patient identification and proposed procedure were verified by the physician, the nurse and the operational intelligence officer in the procedure room. Mental Status Examination: alert and oriented. Airway Examination: normal oropharyngeal airway and neck mobility. Respiratory Examination: clear to auscultation. CV Examination: normal. Prophylactic Antibiotics: The patient does not require prophylactic antibiotics. Prior Anticoagulants: The patient has taken Xarelto (rivaroxaban), last dose was 7 days prior to procedure. ASA Grade Assessment: IV - A patient with severe systemic disease that is a constant threat to life. After reviewing the risks and benefits, the patient was deemed in satisfactory condition to undergo the procedure. The anesthesia plan was to use monitored anesthesia care (MAC). Immediately prior to administration of medications, the patient was re-assessed for adequacy to receive sedatives. The heart rate, respiratory rate, oxygen saturations, blood pressure, adequacy of pulmonary ventilation, and response to care were monitored throughout the procedure. The physical status of the patient was re-assessed after the procedure. The Endoscope was introduced through the mouth, and advanced to the second part of duodenum. The upper GI endoscopy was accomplished without difficulty. The patient tolerated the procedure well. Findings: No endoscopic abnormality was evident in the esophagus to explain the patient's complaint of dysphagia. One non-bleeding cratered gastric ulcer with no stigmata of bleeding was found on the greater curvature of the stomach. The lesion was 2 mm in largest dimension. The first portion of the duodenum and second portion of the duodenum were normal. There is a helaing ulcer where the previous PEG site was, no signs of gastrocutaneous fistula. The patient was placed in the supine position for PEG placement. The stomach was insufflated to appose gastric and abdominal brandt. A site was located in the body of the stomach with good transillumination for placement. The abdominal wall was marked and prepped in a sterile manner. The area was anesthetized with 4 mL of 1% lidocaine. The trocar needle was introduced through the abdominal wall and into the stomach under direct endoscopic view. A snare was introduced through the endoscope and opened in the gastric lumen. The guide wire was passed through the trocar and into the open snare. The snare was closed around the guide wire. The endoscope and snare were removed, pulling the wire out through the mouth. A skin incision was made at the site of needle insertion. The externally removable 20 Fr Bard gastrostomy tube was lubricated. The G-tube was passed over the guide wire through the mouth, and into the stomach. The trocar needle was removed, and the gastrostomy tube was pulled out from the stomach through the skin. The guide wire was removed, and the external bumper attached to the gastrostomy tube. The feeding tube was then cut to an appropriate length. The final position of the gastrostomy tube was confirmed by relook endoscopy, and skin marking noted to be 2.5 cm at the external bumper. The final tension and compression of the abdominal wall by the PEG tube and external bumper were checked and revealed that the bumper was loose and lightly touching the skin. The feeding tube was capped, and the tube site was cleaned and dressed. Impression: - No endoscopic esophageal abnormality to explain patient's dysphagia. - Non-bleeding gastric ulcer with no stigmata of bleeding. - Normal first portion of the duodenum and second portion of the duodenum. - An externally removable PEG placement was successfully completed. - No specimens collected. Recommendation: - Please follow the post-PEG recommendations including: change dressing once per day, may use PEG today for meds and water and may use PEG tomorrow for feedings. Procedure Code(s): --- Professional --- 28583, Esophagogastroduodenoscopy, flexible, transoral; with directed placement of percutaneous gastrostomy tube Diagnosis Code(s): --- Professional --- R13.10, Dysphagia, unspecified K25.9, Gastric ulcer, unspecified as acute or chronic, without hemorrhage or perforation Z43.1, Encounter for attention to gastrostomy CPT copyright 2019 [employer]. All rights reserved. The codes documented in this report are preliminary and upon analytics associate review may be revised to meet current compliance requirements. Attending Participation: I personally performed the entire procedure. Brayan Banks MD Brayan Banks MD 02/13/2021 1:06:15 PM Electronically signed by Brayan Banks MD Number of Addenda: 0 Note Initiated On: 01/29/2021 1:14 PM Estimated Blood Loss: Estimated blood loss was minimal.
== END 2021-02-06 15:15 | DRG 356 ==
LOC: EDBD 13:32 → M ED 13:32 → M ED INP 17:09 → ENRESERV 01-22 16:25 → M MS5PR 01-22 17:25
PROVIDERS: ADMIT General Practice; ATTEND Family Medicine
PROC: 02HV33Z Insertion of Infusion Device into Superior Vena Cava, Percutaneous Approach (ICD-10-PCS; 2021-01-23)
PROC: 0DH64UZ Insertion of Feeding Device into Stomach, Percutaneous Endoscopic Approach (ICD-10-PCS; 2021-01-29)
PROC: 0JBL0ZZ Excision of Right Upper Leg Subcutaneous Tissue and Fascia, Open Approach (ICD-10-PCS; principal; 2021-02-05)
PROC: 0JB80ZZ Excision of Abdomen Subcutaneous Tissue and Fascia, Open Approach (ICD-10-PCS; 2021-02-05)
PROC: 0KBN0ZZ Excision of Right Hip Muscle, Open Approach (ICD-10-PCS; 2021-02-05)
DX: K94.23 Gastrostomy malfunction (principal); L89.213 Pressure ulcer of right hip, stage 3; L89.153 Pressure ulcer of sacral region, stage 3; L89.893 Pressure ulcer of other site, stage 3; I50.32 Chronic diastolic (congestive) heart failure; C78.00 Secondary malignant neoplasm of unspecified lung; I13.0 Hypertensive heart and chronic kidney disease with heart failure and stage 1 through stage 4 chronic kidney disease, or unspecified chronic kidney disease; C50.919 Malignant neoplasm of unspecified site of unspecified female breast; Z79.899 Other long term (current) drug therapy; Z88.8 Allergy status to other drugs, medicaments and biological substances; Z79.82 Long term (current) use of aspirin; Z79.4 Long term (current) use of insulin; Z79.01 Long term (current) use of anticoagulants; E11.65 Type 2 diabetes mellitus with hyperglycemia; N18.30 Chronic kidney disease, stage 3 unspecified; Z86.718 Personal history of other venous thrombosis and embolism; E78.5 Hyperlipidemia, unspecified; F32.9 Major depressive disorder, single episode, unspecified; J45.909 Unspecified asthma, uncomplicated; Z98.41 Cataract extraction status, right eye; Z98.42 Cataract extraction status, left eye; E87.6 Hypokalemia

== ENCOUNTER 2021-02-23 09:06 | Observation (INO) | payer MEDICARE ==
[~2021-02-23] VITALS: Ht 165.1 cm; Wt 68.9 kg
[~2021-02-23 09:06] MED LIST changes: +ACET-907 GT; +ASPI1CHW3 GT; +FURO40TA2 GT; +LISI20TA33 NG; +PRILOSEC GT; +SIMV20TA22 NG
[2021-02-23 09:38] LABS: BASO % 0.3 % (0.0-1.0); EOS # 0.1 10^3/uL (0.0-0.5); HEMATOCRIT 31.7 % (36.0-47.0); HEMOGLOBIN 9.9 g/dl (12.0-15.5); LYMPH # 1.3 10^3/uL (1.5-5.0); LYMPH % 17.4 % (24.0-44.0); MEAN CORPUSCULAR HEMOGLOBIN 30.7 pg (27.0-33.0); MEAN CORPUSCULAR HGB CONC 31.2 g/dl (32.0-36.5); MEAN CORPUSCULAR VOLUME 98.1 fl (80.0-96.0); MONO # 0.6 10^3/uL (0.0-0.8); MONO % 8.1 % (2.0-8.0); NEUTROPHILS # 5.1 10^3/uL (1.5-8.5); NEUTROPHILS % 71.6 % (36.0-66.0); PLATELET COUNT, AUTOMATED 216 10^3/uL (150-450); RED BLOOD COUNT 3.23 10^6/uL (4.00-5.40); WHITE BLOOD COUNT 7.2 10^3/uL (4.0-10.0)
[2021-02-23] MEDS ORDERED: NS 1,000 ML IV SCH (09:45)
[2021-02-23] MEDS ORDERED: ISOVUE-370 76% 100ML VIAL As Ordered ONE (09:53)
[2021-02-23 10:14] LABS: ALBUMIN 2.4 GM/DL (3.2-5.2); ALT/SGPT 14 U/L (12-78); BILIRUBIN,DIRECT < 0.1 MG/DL (0.0-0.2); BILIRUBIN,TOTAL 0.3 MG/DL (0.2-1.0); LIPASE 348 U/L (73-393); TOTAL PROTEIN 6.9 GM/DL (6.4-8.2)
--- NOTE | 2021-02-23 10:36 | REP ---
INDICATION: abd pain. COMPARISON: None. TECHNIQUE: Scans were obtained during contrast administration. FINDINGS: There is a large right pleural effusion. The liver shows normal size. There is a 2.5 cm low-attenuation area in the dome of the liver anteriorly which most likely represents a hemangioma. Delayed scans would be necessary to confirm. Triple phase liver CT could be performed to clarify this finding. The liver is otherwise unremarkable. There is no mass or biliary tract dilatation. The gallbladder is fluid filled without evidence of gallstone. The spleen shows normal size attenuation pre head the pancreas shows normal size and attenuation. There is no mass or inflammatory change. The adrenal glands are not enlarged. The aorta shows normal caliber. The kidneys show show normal size shape and position. There is no hydronephrosis, mass or cyst. No calculi are demonstrated. There is a small umbilical hernia which contains omental fat. A gastric tube is in place in satisfactory position. The large and small bowel are unremarkable. The uterus and ovaries show no abnormality. There is no mass, adenopathy or inflammatory change in the abdomen or pelvis. IMPRESSION: Large right pleural effusion. Low-attenuation area in the dome of the liver which most likely represents hemangioma. Triple phase CT of the liver would be helpful for further evaluation. Gastric tube in satisfactory position. No acute process. <Electronically signed by Jose Martin > 02/23/21 2312
--- NOTE | 2021-02-23 11:48 | REP ---
INDICATION: catheter sob. COMPARISON: 01/21/2021 TECHNIQUE: AP view FINDINGS: There are chronic changes at the left lung base previous the lungs are otherwise clear. The heart is not enlarged. There is no failure. IMPRESSION: No active process. <Electronically signed by Jose Martin > 02/23/21 1140
[2021-02-23] MEDS: HumaLOG INSULIN (NovoLOG) PER UNIT SC SCH ×3 (12:00→23:45)
[2021-02-23] MEDS ORDERED: ADME100I2 SQ (12:57)
[2021-02-23] MEDS ORDERED: SANT250O8 TOP (12:57)
[2021-02-23] MEDS ORDERED: INSU100I28 SQ (12:57)
[2021-02-23] MEDS ORDERED: SIMV20TA22 GT (12:57)
[2021-02-23] MEDS ORDERED: LISI20TA33 GT (12:57)
[2021-02-23] MEDS ORDERED: HOME MED LIST COMPLETE! XX SCH (13:00)
[2021-02-23 13:21] LABS: RSV AMPLIFICATION NEGATIVE (NEGATIVE)
[2021-02-23] MEDS ORDERED: ACETAMINOPHEN TAB 650MG DOSE (2X325MG) GT PRN (13:50)
[2021-02-23] MEDS ORDERED: DEXTROSE 50% 50 ML SYRINGE IV PRN (14:00)
[2021-02-23] MEDS ORDERED: GLUCOSE 4GM CHEW TABLET PO PRN (14:00)
[2021-02-23] MEDS ORDERED: GLUCAGON INJ 1MG VIAL SC PRN (14:00)
[2021-02-23] MEDS ORDERED: ALTEPLASE 2MG/2ML VIAL ONE (14:50)
--- NOTE | 2021-02-23 15:10 | HPEPDOC ---
[facility] Medical History & Physical Date of Admission Feb 23, 2021 Date of Service: Feb 23, 2021 Attending Physician: JOSHUA KNIGHT MD History and Physical DOCUMENTATION PLACED IN WRONG ENCOUNTER, PLEASE DISREGARD. Vital Signs Vital Signs Date Time Temp Pulse Resp B/P (MAP) Pulse Ox O2 Delivery O2 Flow Rate FiO2 02/23/21 13:21 73 02/23/21 13:15 154/67 (96) 02/23/21 12:51 100 02/23/21 09:32 98.7 18 Nasal Cannula 2.0 Laboratory Data Labs 24H Laboratory Tests 2 02/23/21 09:29: Immature Granulocyte % (Auto) 0.6, Neutrophils (%) (Auto) 71.6H, Lymphocytes (%) (Auto) 17.4L, Monocytes (%) (Auto) 8.1H, Eosinophils (%) (Auto) 2.0, Basophils (%) (Auto) 0.3, Neutrophils # (Auto) 5.1, Lymphocytes # (Auto) 1.3L, Monocytes # (Auto) 0.6, Eosinophils # (Auto) 0.1, Basophils # (Auto) 0.0, Nucleated Red Blood Cells % (auto) 0.0, Total Bilirubin 0.3, Direct Bilirubin < 0.1, Aspartate Amino Transf (AST/SGOT) 10, Alanine Aminotransferase (ALT/SGPT) 14, Alkaline Phosphatase 111, Total Protein 6.9, Albumin 2.4L, Albumin/Globulin Ratio 0.5L, Lipase 348 02/23/21 09:30: POC Glucose (Misc Panel) 112H, POC Sodium (Misc Panel) 143, POC Potassium (Misc Panel) 4.3, POC Chloride (Misc Panel) 97L, POC Total CO2 (Misc Panel) 32.0H, POC Blood Urea Nitrogen (Misc Panel 66H, POC Ionized Calcium (Misc Panel) 4.8, POC Creatinine (Misc Panel) 1.2, POC Hematocrit (Misc Panel) 27.0L 02/23/21 12:28: Coronavirus (COVID-19)(PCR) NEGATIVE, Influenza Type A (RT-PCR) NEGATIVE, Influenza Type B (RT-PCR) NEGATIVE, Respiratory Syncytial Virus (PCR) NEGATIVE CBC/BMP Laboratory Tests 02/23/21 09:29 Home Medications Scheduled Aspirin (Aspirin) 81 Mg Tab.chew, 81 MG GT DAILY Collagenase Clostridium Hist. (Santyl) 30 Gm Oint...g., 1 DOSE TOP QPM APPLY TO SACRAL WOUND Furosemide (Furosemide) 40 Mg Tablet, 40 MG GT DAILY Insulin Glargine,Hum.rec.anlog (Semglee Pen) 100 Unit/Ml (3 Ml) Insuln.pen, 20 UNIT SQ DAILY Insulin Lispro (Admelog Solostar) 100 Unit/1 Ml Insuln.pen, 1 DOSE SQ AC PER SLIDING SCALE Lisinopril (Lisinopril) 20 Mg Tablet, 20 MG GT DAILY Simvastatin (Simvastatin) 20 Mg Tablet, 20 MG GT QHS [Prilosec Suspension] , 20 ML GT BID Scheduled PRN Acetaminophen (Tylenol) 325 Mg Tablet, 650 MG GT Q4H PRN for PAIN LEVEL 1-6 Allergies Coded Allergies: adhesive tape (Verified Allergy, Intermediate, rash, 12/14/20) exenatide (Verified Adverse Reaction, Mild, itching, 12/25/20) A-FIB/CHADSVASC A-FIB History Current/History of A-Fib/PAF?: No Current PO Anticoag Therapy: No Age/Risk Factor Scoring CHADSVASC: CHADSVASC Response (Comments) Value Age Risk Factor Age >/= 75 years old 2 Gender Risk Factor Female 1 Hx of CHF No 0 Hx of HTN Yes 1 Hx of Stroke/TIA/or VTE No 0 Hx of Diabetes Yes 1 Hx of Vascular Disease Yes 1 Total 6 Treatment Treatment ordered: NONE Reason Anticoagulant not given: Not indicated/[id number] JOSHUA KNIGHT MD Feb 23, 2021 14:38
--- NOTE | 2021-02-23 15:28 | HPEPDOC ---
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 On presentations she denied any chest pain, SOB, palpitations, oz abdominal pain but reports some pain that has improved somewhat around her PEG site. She otherwise denied recent fevers, chills, sweats, cough. She reports a long history of gait instability/falls with gradual worsening debility now and has now been requiring mechanical transfers with ongoing PT/OT focusing on standing at bedside. She reports a wound that has dressing on R hip fold and R heel wound and tender heels bilaterally at baseline but is not sure if she has sacral wounds. In the ED she was hemodynamically stable, afebrile, saturating well on room air and AOx3 reporting some pain that on examination per ED physician was mildly tender with palpation without erythema, discharge or swelling. Workup was notable a CT A/P with IV contrast that showed the PEG tube in place without dislogement or an associated soft tissue collection but noted a large R pleural effusion, while WBC was 7.2, hgb stably at 9.9, platelets 216, na 143, K 4.3, Cr 1.2, glucose 112. Surprisingly CXR did not show the pleural effusion. She is now being admitted to medicine with thoracic surgery on consult for drainage of her R pleural effusion and likely tPA for the pleurX to resume proper drainage. PAST MEDICAL HISTORY: Invasive ductal carcinoma of the right breast, metastatic to lungs and pleura bilaterally R> L, hormone receptor positive first diagnosed in 2002 s/p lumpectomy, chemo and radiotherapy, On hormone therapy Recurrent right sided malignant pleural effusion with Right Pleurx catheter Chronic Anemia CKD stage 3 DM H/O DVT HLD depression Dizziness HTN Asthma Diastolic CHF Gait instability/falls with gradual worsening debility now requiring mechanical transfers with ongoing PT/OT focusing on standing at bedside PAST SURGICAL HISTORY: Right breast lumpectomy tubal ligation H/o right chest tube with pleurX bilateral cataract surgery SOCIAL HISTORY: Marital status: Resides in: came in from [facility] Children: daughter,Estrella gutierrez Tobacco use: none ETOH: none FAMILY HISTORY FATHER: , LIVER DISEASE MOTHER: , GI BLEED DAUGHTER HAS MS ALLERGIES: Please see below. REVIEW OF SYSTEMS: As per HPI otherwise 10 point ROS was negative. HOME MEDICATIONS: Please see below. PHYSICAL EXAMINATION: VITAL SIGNS: reviewed, see below GENERAL APPEARANCE: NCAT, alert, awake, good historian of her recent history, ill appearing HEENT: NCAT, EOMI, PERRLA, MMM CARDIOVASCULAR: regular rhythm, 3/6 holosystolic murmur at LUSB LUNGS: Diminished R base, clear apices, no wheezing or rhonchi, on 2L NC, speaking in full sentences ABDOMEN: Normoactive bowel sounds, soft, NTND EXTREMITIES: Wound with collagenous discharge, no copious drainage, no surrounding erythema, with some packing in place. R heel with black necrosis pressure ulcer without drainage or surrounding erythema, Dry LE skin NEUROLOGICAL: AOx 3, CN3-12 intact, weak throughout with 3.5-4/5 strength in LEs and 5/5 in UEs. 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 first diagnosed in 2002 with metastases to lungs and pleura (R>L) s/p chemo, radiation, lumpectomy with recurrent right-sided malignant pleural effusion and right Pleurx catheter, chronic kidney disease stage III, hypertension, diabetes mellitus, chronic anemia, diastolic CHF with multiple recent hospital admissions who was brought in from [facility] for pain around PEG site that appears minimal with CT A/P with IV contrast that showed the PEG tube in place without dislogement or an associated soft tissue collection but noted a large R pleural effusion, now being admitted to medicine with thoracic surgery on consult for drainage of her R pleural effusion and likely tPA for the pleurX to resume proper drainage. PLAN: # Chronic malignant R pleural effusion: -consulted thoracic surgery for drainage and likely tPA for poorly functioning pleurX -admit to PCU -supplemental O2 -incentive spirometry # IDDM: - FSBG Q6H - ISS Q6H -NPO -Jevity 1.5 to goal 65cc/hr with 200Q6H free water flushed - Levemir 20U QHS # CKD III: - BMP in the AM - s/p fluids in the ED #Chronic HFpEF: -Will closely monitor fluid status - Continue home medications with lasix per GT #Chronic anemia: - daily CBCs #Hx DVTs: -Xarelto per home script # HLD -Continue home simvastatin # HTN Continue home lisinopril # Asthma -Not currently taking medications, continue to monitor -IS at bedside GERD: -continue BID omeprazole Dispo: PCU with plan to return to [facility] when medically cleared Vital Signs Vital Signs Date Time Temp Pulse Resp B/P (MAP) Pulse Ox O2 Delivery O2 Flow Rate FiO2 02/23/21 14:15 97.9 71 20 150/72 (98) 100 02/23/21 09:32 Nasal Cannula 2.0 Laboratory Data Labs 24H Laboratory Tests 2 02/23/21 09:29: Immature Granulocyte % (Auto) 0.6, Neutrophils (%) (Auto) 71.6H, Lymphocytes (%) (Auto) 17.4L, Monocytes (%) (Auto) 8.1H, Eosinophils (%) (Auto) 2.0, Basophils (%) (Auto) 0.3, Neutrophils # (Auto) 5.1, Lymphocytes # (Auto) 1.3L, Monocytes # (Auto) 0.6, Eosinophils # (Auto) 0.1, Basophils # (Auto) 0.0, Nucleated Red Blood Cells % (auto) 0.0, Total Bilirubin 0.3, Direct Bilirubin < 0.1, Aspartate Amino Transf (AST/SGOT) 10, Alanine Aminotransferase (ALT/SGPT) 14, Alkaline Phosphatase 111, Total Protein 6.9, Albumin 2.4L, Albumin/Globulin Ratio 0.5L, Lipase 348 02/23/21 09:30: POC Glucose (Misc Panel) 112H, POC Sodium (Misc Panel) 143, POC Potassium (Misc Panel) 4.3, POC Chloride (Misc Panel) 97L, POC Total CO2 (Misc Panel) 32.0H, POC Blood Urea Nitrogen (Misc Panel 66H, POC Ionized Calcium (Misc Panel) 4.8, POC Creatinine (Misc Panel) 1.2, POC Hematocrit (Misc Panel) 27.0L 02/23/21 12:28: Coronavirus (COVID-19)(PCR) NEGATIVE, Influenza Type A (RT-PCR) NEGATIVE, Influenza Type B (RT-PCR) NEGATIVE, Respiratory Syncytial Virus (PCR) NEGATIVE CBC/BMP Laboratory Tests 02/23/21 09:29 Home Medications Scheduled Aspirin (Aspirin) 81 Mg Tab.chew, 81 MG GT DAILY Collagenase Clostridium Hist. (Santyl) 30 Gm Oint...g., 1 DOSE TOP QPM APPLY TO SACRAL WOUND Furosemide (Furosemide) 40 Mg Tablet, 40 MG GT DAILY Insulin Glargine,Hum.rec.anlog (Semglee Pen) 100 Unit/Ml (3 Ml) Insuln.pen, 20 UNIT SQ DAILY Insulin Lispro (Admelog Solostar) 100 Unit/1 Ml Insuln.pen, 1 DOSE SQ AC PER SLIDING SCALE Lisinopril (Lisinopril) 20 Mg Tablet, 20 MG GT DAILY Simvastatin (Simvastatin) 20 Mg Tablet, 20 MG GT QHS [Prilosec Suspension] , 20 ML GT BID Scheduled PRN Acetaminophen (Tylenol) 325 Mg Tablet, 650 MG GT Q4H PRN for PAIN LEVEL 1-6 Allergies Coded Allergies: adhesive tape (Verified Allergy, Intermediate, rash, 12/14/20) exenatide (Verified Adverse Reaction, Mild, itching, 12/25/20) A-FIB/CHADSVASC A-FIB History Current/History of A-Fib/PAF?: No Current PO Anticoag Therapy: No Age/Risk Factor Scoring CHADSVASC: CHADSVASC Response (Comments) Value Age Risk Factor Age >/= 75 years old 2 Gender Risk Factor Female 1 Hx of CHF No 0 Hx of HTN Yes 1 Hx of Stroke/TIA/or VTE No 0 Hx of Diabetes Yes 1 Hx of Vascular Disease Yes 1 Total 6 Treatment Treatment ordered: NONE Reason Anticoagulant not given: Not indicated/[id number] JOSHUA KNIGHT MD Feb 23, 2021 15:28
[2021-02-23 16:00] VITALS: BP 162/72
[2021-02-23] MEDS ORDERED: SANTYL OINT 30GM TOP PRN (17:05)
--- NOTE | 2021-02-23 17:09 | CR ---
CONSULTATION DATE: 02/23/2021 Patient is seen at the request of Dr. Urrutia of the emergency room for a persistent pleural effusion. HISTORY OF PRESENT ILLNESS: Patient is a 75-year-old white female who has known breast cancer for the last nearly 20 years, now with metastasis to her lung and pleura, who presented in October with a pleural effusion, which was eventually drained with a chest tube and which then recurred and then drained with a PleurX catheter. She is status post chemoradiation and a lumpectomy on the right side. She had recently had a percutaneous endoscopic gastrostomy (PEG) tube placed, which has become inflamed and irritated, for which she was brought from the [facility] to here for evaluation. An abdominal CT was obtained, which showed a moderate pleural effusion. It is notable that she is asymptomatic, although she is bedridden. She does not complain of shortness of breath . There is a slight cough but no sputum production and no fever, chills, or sweats. She does not complain of chest pain. Her PEG tube was placed for dysphagia and aspiration. MEDICAL HISTORY: 1. The above invasive ductal carcinoma. 2. Stage III kidney disease. 3. Hypertension. 4. Diabetes. 5. Diastolic congestive heart failure. 6. Depression. SURGICAL HISTORY: 1. The above right breast lumpectomy. 2. Tubal ligation. 3. Bilateral cataract surgery. HABITS: Does not imbibe alcohol or use cigarettes, and there are no illicit drugs. TRAVEL HISTORY: not obtained. EXPOSURE HISTORY: No dogs, birds, or cats in the skilled nursing. OCCUPATIONAL HISTORY: Not obtained. FAMILY HISTORY: Has a daughter with multiple sclerosis. Father of liver disease. PHYSICAL EXAMINATION: A well-developed, well-nourished, weak white female in no acute distress. Vital signs: Temperature 97.1 with a heart rate of 72 in a sinus rhythm, respiratory rate of 17 without the use of accessory muscles, who is 94% saturated on 2l iters nasal cannula, and whose blood pressure is 180/80. Eyes: Pupils are equal, round, and react to light. Extraocular movements are intact. Sclerae anicteric. Lungs show equal breath sounds on either side with a dull percussion note at the very base. She also has diminished breath sounds at the very base on the right side. Cardiac exam is without murmurs, clicks, gallops, or rubs. I cannot feel her point of maximal impulse (PMI). S1 and S2 are normal. Abdomen is soft and nontender. Bowel sounds are positive. Extremities show no pretibial edema, no calf tenderness, no differential swelling of the upper extremities. Skin is warm, dry, and perfused without cyanosis or mottling, including that of the nailbeds and knees. Neurologic shows II-XII intact. Normal gross motor, gross sensation intact, although she is generally weak and debilitated. Psychiatric shows her to be awake, alert, and oriented times three with appropriate mood and affect and conversational. Her white count today is 7.2 with a hemoglobin and hematocrit of 9.9 and 31.7. Platelet count is 216. Differential shows 71% neutrophils, 17% lymphocytes, and 8% monocytes. There are no immature forms or toxic granulations. Her chemistries show normal electrolytes with increased total CO2 of 35 and a BUN and creatinine of 39 and 0.97. Calcium is 8.4. Albumin is 2.4. It should be noted that her original pleural effusion was malignant, consistent with metastatic breast carcinoma. Her chest x-ray done portably looks surprisingly intact. There is a skin fold masquerading as an inferior pneumothorax on the right side. Costophrenic angle, however, is sharp. There is no lateral film, but I would not guess that there would be a pleural effusion from the chest x-ray. Abdominal CT obtained in the emergency room shows a moderate pleural effusion with the catheter coursing through it inferiorly. There is some underlying lung compression. IMPRESSION: 1. 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 2. Hypertension. 3. Pleural effusion. 4. Diabetes. 5. Debility and generalized weakness. 6. Diastolic congestive heart failure (CHF). PLAN AND DISCUSSION: I am somewhat concerned, even though she is asymptomatic, that the fluid will entrap the lung. I will therefore try and break it up with tPA. I suspect this has been longstanding, and it may very well not break up. The catheter has not drained anything for a number of months, and pleurolysis may be futile. I do not think it can hurt her. If the tPA fails to resolve the pleural effusion, I will let it be at this point in time, as she is asymptomatic and is debilitated. I will treat the patient rather than the chest CT.
[2021-02-23] MEDS: FUROSEMIDE 40 MG TAB GT SCH (17:47)
[2021-02-23] MEDS: ASPIRIN 81 MG CHEW TABLET GT SCH (17:47)
[2021-02-23] MEDS ORDERED: ALTEPLASE 2MG/2ML VIAL XX ONE (18:20)
[2021-02-23 19:36] VITALS: BP 145/65
[2021-02-23] MEDS ORDERED: SANTYL OINT 30GM TOP SCH (21:00)
[2021-02-23] MEDS ORDERED: SIMVASTATIN 20 MG TAB GT SCH (21:00)
[2021-02-23] MEDS: OMEPRAZOLE SUSPENSION 20MG 10ML ORAL SYRINGE GT SCH (21:26)
[2021-02-24] VITALS: BP 144/62
[2021-02-24 04:00] VITALS: BP 113/57
[2021-02-24 05:47] LABS: INR 1.19; PARTIAL THROMBOPLASTIN TIME 35.3 SECONDS (25.9-37.0); PROTHROMBIN TIME 15.6 SECONDS (12.7-14.5)
[2021-02-24] MEDS: HumaLOG INSULIN (NovoLOG) PER UNIT SC SCH (06:23)
[2021-02-24 08:00] VITALS: BP 127/60
[2021-02-24 08:35] LABS: HEMATOCRIT 30.7 % (36.0-47.0); HEMOGLOBIN 9.6 g/dl (12.0-15.5); MEAN CORPUSCULAR HEMOGLOBIN 30.8 pg (27.0-33.0); MEAN CORPUSCULAR HGB CONC 31.3 g/dl (32.0-36.5); MEAN CORPUSCULAR VOLUME 98.4 fl (80.0-96.0); PLATELET COUNT, AUTOMATED 214 10^3/uL (150-450); RED BLOOD COUNT 3.12 10^6/uL (4.00-5.40); WHITE BLOOD COUNT 9.9 10^3/uL (4.0-10.0)
[2021-02-24 08:39] LABS: CALCIUM LEVEL 8.6 MG/DL (8.8-10.2); CREATININE FOR GFR 1.16 MG/DL (0.55-1.30); GLOMERULAR FILTRATION RATE 48.4 (>39); MAGNESIUM LEVEL 2.2 MG/DL (1.8-2.4); POTASSIUM SERUM 4.4 MEQ/L (3.5-5.1)
[2021-02-24] MEDS: ASPIRIN 81 MG CHEW TABLET GT SCH (08:55)
[2021-02-24] MEDS: OMEPRAZOLE SUSPENSION 20MG 10ML ORAL SYRINGE GT SCH (08:55)
[2021-02-24] MEDS: FUROSEMIDE 40 MG TAB GT SCH (08:55)
[2021-02-24 08:57] VITALS: BP 127/60
[2021-02-24] MEDS ORDERED: HEPARIN SOD (PORCINE) 5000UNITS/ML 1ML VIAL/SYRINGE SQ SCH (09:00)
[2021-02-24] MEDS ORDERED: LEVEMIR (INSULIN DETEMIR) 1 UNITS/0.01ML SC SCH (09:00)
--- NOTE | 2021-02-24 10:53 | IPNPDOC ---
Text Note Date of Service The patient was seen on 02/24/21. NOTE SUBJECTIVE: -On 2L, no acute complaints this morning OBJECTIVE: VITAL SIGNS:See below GENERAL APPEARANCE: NCAT, alert, awake, good historian of her recent history, ill appearing HEENT: NCAT, EOMI, PERRLA, MMM CARDIOVASCULAR: regular rhythm, 3/6 holosystolic murmur at LUSB LUNGS: Diminished R base, clear apices, no wheezing or rhonchi, on 2L NC, speaking in full sentences ABDOMEN: Normoactive bowel sounds, soft, NTND EXTREMITIES: Wound with collagenous discharge, no copious drainage, no surrounding erythema, with some packing in place. R heel with black necrosis pressure ulcer without drainage or surrounding erythema, Dry LE skin NEUROLOGICAL: AOx 3, CN3-12 intact, weak throughout with 3.5-4/5 strength in LEs and 5/5 in UEs. 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 first diagnosed in 2002 with metastases to lungs and pleura (R>L) s/p chemo, radiation, lumpectomy with recurrent right-sided malignant pleural effusion and right Pleurx catheter, chronic kidney disease stage III, hypertension, diabetes mellitus, chronic anemia, diastolic CHF with multiple recent hospital admissions who was brought in from [facility] for pain around PEG site that appears minimal with CT A/P with IV contrast that showed the PEG tube in place without dislogement or an associated soft tissue collection but noted a large R pleural effusion, now being admitted to medicine with thoracic surgery on consult for drainage of her R pleural effusion and tPA. PLAN: # Chronic malignant R pleural effusion: -consulted thoracic surgery for drainage and tPA, not successful and per Dr. Agrawal given that this is long standing and she is asymptomatic, will not pursue aggressive measures at this time. Safe for discharge from thoracic surgery perspective. -supplemental O2, 2L NC at baseline -incentive spirometry # IDDM: -FSBG Q6H -ISS Q6H -NPO -Jevity 1.5 to goal 65cc/hr with 200Q6H free water flushed -Levemir 20U QHS # CKD III: - daily BMP - s/p fluids in the ED #Chronic HFpEF: -Will closely monitor fluid status - Continue home medications with lasix per GT #Chronic anemia: - daily CBCs #Hx DVTs: -Xarelto per home script # HLD -Continue home simvastatin # HTN Continue home lisinopril # Asthma -Not currently taking medications, continue to monitor -IS at bedside GERD: -continue BID omeprazole Chronic wounds: -follows with Dr. Looney, no signs or evidence of infection at this time Chronic dysphagia: -NPO -PEG feeds as noted above Dispo: dc back to [facility]. VS,Fishbone, I+O VS, Fishbone, I+O Laboratory Tests 02/23/21 09:29 Vital Signs Date Time Temp Pulse Resp B/P (MAP) Pulse Ox O2 Delivery O2 Flow Rate FiO2 02/24/21 04:00 97.1 82 16 113/57 (75) 96 Nasal Cannula 2.0 I&O- Last 24 Hours up to 6 AM 02/24/21 06:00 Intake Total 50 ml Balance 50 ml JOSHUA KNIGHT MD Feb 24, 2021 07:28
--- NOTE | 2021-02-24 11:09 | DS.PDOC ---
Discharge Summary General Date of Admission Feb 23, 2021 at 14:30 Date of Discharge 02/24/2021 Attending Physician: JOSHUA KNIGHT MD Discharge Summary PROCEDURES PERFORMED DURING STAY: None ADMITTING DIAGNOSES: Recurrent chronic right pleural effusion DISCHARGE DIAGNOSES: Recurrent right sided malignant pleural effusion with Right Pleurx catheter Invasive ductal carcinoma of the right breast, metastatic to lungs and pleura bilaterally R> L, hormone receptor positive first diagnosed in 2002 s/p lumpectomy, chemo and radiotherapy, On hormone therapy Chronic Anemia CKD stage 3 DM H/O DVT HLD depression Dizziness HTN Asthma Diastolic CHF Gait instability/falls with gradual worsening debility now requiring mechanical transfers with ongoing PT/OT focusing on standing COMPLICATIONS/CHIEF COMPLAINT: Recurrent Right Pleural Effusion. 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 On presentation she denied any chest pain, SOB, palpitations, oz abdominal pain but reports some pain that has improved somewhat around her PEG site. She otherwise denied recent fevers, chills, sweats, cough. She reports a long history of gait instability/falls with gradual worsening debility now and has now been requiring mechanical transfers with ongoing PT/OT focusing on standing at bedside. She reports a wound that has dressing on R hip fold and R heel wound and tender heels bilaterally at baseline but is not sure if she has sacral wounds. HOSPITAL COURSE: In the ED she was hemodynamically stable, afebrile, saturating well on room air and AOx3 reporting some pain that on examination per ED physician was mildly tender with palpation without erythema, discharge or swelling. Workup was notable a CT A/P with IV contrast that showed the PEG tube in place without dislogement or an associated soft tissue collection but noted a previously noted large R pleural effusion, while WBC was 7.2, hgb stably at 9.9, platelets 216, na 143, K 4.3, Cr 1.2, glucose 112. Surprisingly CXR did not show the pleural effusion. She was admitted to medicine with thoracic surgery on consult for trial of drainage of her R pleural effusion and tPA for the pleurX but was unsuccessful at draining. Given that she is asymptomatic and the effusion is chronic, Dr. Agrawal decided not to pursue further measures at this time given she is asymptomatic and the chronic nature of her effusion. She is now being discharged back to [facility] with close GP/PCP within 7d with wound follow up with Dr. Looney. DISCHARGE MEDICATIONS: Please see below. ALLERGIES: Please see below. PHYSICAL EXAMINATION ON DISCHARGE: VITAL SIGNS: Please see below. GENERAL APPEARANCE: NCAT, alert, awake, good historian of her recent history, ill appearing HEENT: NCAT, EOMI, PERRLA, MMM CARDIOVASCULAR: regular rhythm, 3/6 holosystolic murmur at LUSB LUNGS: Diminished R base, clear apices, no wheezing or rhonchi, on 2L NC, speaking in full sentences ABDOMEN: Normoactive bowel sounds, soft, NTND SKIN: Wound with collagenous discharge, no copious drainage, no surrounding erythema, with some packing in place. R heel with black necrosis pressure ulcer without drainage or surrounding erythema, Dry LE skin NEUROLOGICAL: AOx 3, CN3-12 intact, weak throughout with 3.5-4/5 strength in LEs and 5/5 in UEs. LABORATORY DATA: Please see below. IMAGING: CT A/P with IV contrast: There is a large right pleural effusion. The liver shows normal size. There is a 2.5 cm low-attenuation area in the dome of the liver anteriorly which most likely represents a hemangioma. Delayed scans would be necessary to confirm. Triple phase liver CT could be performed to clarify this finding. The liver is otherwise unremarkable. There is no mass or biliary tract dilatation. The gallbladder is fluid filled without evidence of gallstone. The spleen shows normal size attenuation pre head the pancreas shows normal size and attenuation. There is no mass or inflammatory change. The adrenal glands are not enlarged. The aorta shows normal caliber. The kidneys show show normal size shape and position. There is no hydronephrosis, mass or cyst. No calculi are demonstrated. There is a small umbilical hernia which contains omental fat. A gastric tube is in place in satisfactory position. The large and small bowel are unremarkable. The uterus and ovaries show no abnormality. There is no mass, adenopathy or inflammatory change in the abdomen or pelvis. IMPRESSION: Large right pleural effusion. Low-attenuation area in the dome of the liver whi ch most likely represents hemangioma. Triple phase CT of the liver would be helpful for further evaluation. Gastric tube in satisfactory position. No acute process. CXR: There are chronic changes at the left lung base previous the lungs are otherwise clear. The heart is not enlarged. There is no failure. IMPRESSION: No active process. PROGNOSIS: Good ACTIVITY: As tolerated DIET: On tube feeds. DISCHARGE PLAN: [facility] DISPOSITION: [facility] DISCHARGE INSTRUCTIONS: [facility] ITEMS TO FOLLOWUP ON ON OUTPATIENT: GP/PCP within 7d DISCHARGE CONDITION: Stable. TIME SPENT ON DISCHARGE: 40 minutes. Vital Signs/I&Os Vital Signs Date Time Temp Pulse Resp B/P (MAP) Pulse Ox O2 Delivery O2 Flow Rate FiO2 02/24/21 08:57 127/60 02/24/21 08:00 99.0 78 17 95 Nasal Cannula 2.0 I&O- Last 24 Hours up to 6 AM 02/24/21 06:00 Intake Total 205 ml Output Total 250 ml Balance -45 ml Laboratory Data Labs 24H Laboratory Tests 2 02/23/21 12:28: Coronavirus (COVID-19)(PCR) NEGATIVE, Influenza Type A (RT-PCR) NEGATIVE, Influenza Type B (RT-PCR) NEGATIVE, Respiratory Syncytial Virus (PCR) NEGATIVE 02/23/21 17:45: Urine Color YELLOW, Urine Appearance CLOUDYH, Urine pH 9.0, Urine Specific Mccool 1.025, Urine Protein 2+H, Urine Glucose (UA) NEGATIVE, Urine Ketones NEGATIVE, Urine Blood NEGATIVE, Urine Nitrite NEGATIVE, Urine Bilirubin NEGATIVE, Urine Urobilinogen 0.2, Urine Leukocyte Esterase 3+H, Urine WBC (Auto) 90H, Urine RBC (Auto) 4H, Urine Hyaline Casts (Auto) 0, Urine Bacteria (Auto) NEGATIVE, Urine Squamous Epithelial Cells 0, Urine Sperm (Auto) 02/23/21 18:14: Bedside Glucose (Misc Panel) 144H 02/23/21 23:43: Bedside Glucose (Misc Panel) 200H 02/24/21 05:20: Nucleated Red Blood Cells % (auto) 0.0, Anion Gap 6L, Glomerular Filtration Rate 48.4, Calcium Level 8.6L, Magnesium Level 2.2 02/24/21 05:23: Prothrombin Time 15.6H, Prothromb Time International Ratio 1.19, Activated Partial Thromboplast Time 35.3 02/24/21 06:19: Bedside Glucose (Misc Panel) 392H CBC/BMP Laboratory Tests 02/24/21 05:20 FSBS Laboratory Tests Test 02/23/21 18:14 02/23/21 23:43 02/24/21 06:19 Range/Units Bedside Glucose (Misc Panel) 144 200 392 83-110 MG/DL Microbiology Microbiology 02/23/21 Wound Culture, Received Pending 02/23/21 Wound Culture, Received Pending 02/23/21 Urine Culture, Received Pending Discharge Medications Scheduled Aspirin (Aspirin) 81 Mg Tab.chew, 81 MG GT DAILY, (Reported) Collagenase Clostridium Hist. (Santyl) 30 Gm Oint...g., 1 DOSE TOP QPM, (Reported) APPLY TO SACRAL WOUND Furosemide (Furosemide) 40 Mg Tablet, 40 MG GT DAILY, (Reported) Insulin Glargine,Hum.rec.anlog (Semglee Pen) 100 Unit/Ml (3 Ml) Insuln.pen, 20 UNIT SQ DAILY, (Reported) Insulin Lispro (Admelog Solostar) 100 Unit/1 Ml Insuln.pen, 1 DOSE SQ AC, (Reported) PER SLIDING SCALE Lisinopril (Lisinopril) 20 Mg Tablet, 20 MG GT DAILY, (Reported) Simvastatin (Simvastatin) 20 Mg Tablet, 20 MG GT QHS, (Reported) [Prilosec Suspension] , 20 ML GT BID, (Reported) Scheduled PRN Acetaminophen (Tylenol) 325 Mg Tablet, 650 MG GT Q4H PRN for PAIN LEVEL 1-6, (Reported) Allergies Coded Allergies: adhesive tape (Verified Allergy, Intermediate, rash, 12/14/20) exenatide (Verified Adverse Reaction, Mild, itching, 12/25/20) JOSHUA KNIGHT MD Feb 24, 2021 11:09
--- NOTE | 2021-02-24 12:42 | RO ---
OPERATIVE NOTE DATE OF OPERATION: 02/23/2021 PREOPERATIVE DIAGNOSIS: Left pleural effusion. POSTOPERATIVE DIAGNOSIS: Left pleural effusion. PROCEDURE: tPA pleurolysis through a PleurX catheter. SURGEON: Hamlet Agrawal M.D. FOUNDRY MANAGER: ANESTHESIA: DESCRIPTION OF PROCEDURE: The patient's PleurX catheter was disconnected and 6 ml of tPA in 50 ml of normal saline was instilled. At first there was leakage from the skin incision, but then about [address] with a little more force, I could feel a give in the cathter and the rest of the infusion went smoothly. The catheter was capped. The patient was rolled from side to side to distribute the tPA. It will be drained in four hours. The patient tolerated the procedure well.
--- NOTE | 2021-02-24 19:39 | IPN ---
PROGRESS NOTE DATE: 02/24/2021 SUBJECTIVE: The tPA pleurolysis did not result in any output from the PleurX catheter either yesterday or today. She is essentially is asymptomatic from a respiratory point of view. She is not complaining of shortness of breath. There is no cough, no fever chills or sweats. No sputum production. OBJECTIVE: Her vital signs show a T-max of 99.0 with a heart rate that ranges in 78 to 82 in sinus rhythm, respiratory rate is 16 to 18 without the use of accessory muscles. She is 95 to 100% saturating on 2 liters nasal cannula on 2 liters nasal cannula. His blood pressure is ranging between 144/62 to 113/67. Intake and output for the past 24 hours was recorded as 650 and 600 out. Nothing has come out of the PleurX catheter. PHYSICAL EXAMINATION: Her lungs show equal breath sounds on either side. She has some scattered rhonchi. Cardiac examination without murmurs, clicks, gallops or rubs. I cannot feel her PMI. S1, S2 are normal. Abdomen: Soft and nontender. Bowel sounds are positive. No hepatosplenomegaly. No costovertebral angle (CVA) tenderness. Extremities: Show no pretibial edema. No calf tenderness. No differential swelling of upper extremities. Skin is warm, dry and perfuse without cyanosis or mottling including nailbeds and knees. Neck is supple with no jugular venous distention. No subcutaneous emphysema. Trachea is midline. Mouth: Shows mucous membranes to be pink and moist. Lips and commissures without lesions or thrush. Eyes: Pupils equal and reactive. Extraocular motions intact. Sclerae are anicteric. Neuro: CN II-XII intact with gross motor intact. Gait is not tested. Psychiatric: Alert, awake and oriented times 3 with appropriate mood and affect and conversational. INVESTIGATIONS: White count 8.9, hemoglobin and hematocrit 9.6 and 30.7 with a platelet count of 214. There is no differential. Electrolytes are essentially normal with a BUN and creatinine of 61 and 1.16. Glucose is 358 with a calcium of 8.6 and magnesium of 2.2. There is no chest x-ray on her today. IMPRESSION: 1. 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 2. Hypertension. 3. Pleural effusion, stable. 4. Diabetes. 5. Debility and generalized weakness. 6. Diastolic congestive heart failure. PLAN AND DISCUSSION: There has been nothing removed from the PleurX catheter. The pleural effusion is stable. In fact to look at the chest x-ray, I would not have realized that there was an effusion present, although there was no lateral film. I have no objection to her being discharged today. The PleurX catheter was not working and probably never will work again. It does not bother her, so I will keep it in. Removing it would be an outpatient procedure.
== END 2021-02-24 12:37 ==
LOC: EDBD 09:06 → M ED 09:06 → ENRESERV 14:00 → M ED 14:20 → M PCU 14:30 → EEVIPCON 14:30
PROVIDERS: ADMIT Internal Medicine; ATTEND Internal Medicine
DX: C78.00 Secondary malignant neoplasm of unspecified lung (principal); C50.911 Malignant neoplasm of unspecified site of right female breast; J91.0 Malignant pleural effusion; Z92.21 Personal history of antineoplastic chemotherapy; Z92.3 Personal history of irradiation; I50.32 Chronic diastolic (congestive) heart failure; I11.9 Hypertensive heart disease without heart failure; N18.30 Chronic kidney disease, stage 3 unspecified; R42 Dizziness and giddiness; F32.9 Major depressive disorder, single episode, unspecified; J45.909 Unspecified asthma, uncomplicated; R26.9 Unspecified abnormalities of gait and mobility; E11.9 Type 2 diabetes mellitus without complications; D64.9 Anemia, unspecified; E78.49 Other hyperlipidemia; Z79.4 Long term (current) use of insulin; Z79.82 Long term (current) use of aspirin; Z79.899 Other long term (current) drug therapy
CPT/HCPCS: 32561; 36415; 71045; 74177; 80047; 80048; 80076; 81001; 83690; 83735; 85025; 85027; 85610; 85730; 87070; 87077; 87088; 87186; 87631; 96360; 96361; 99285; G0378; J1644; J2997; Q9967

== ENCOUNTER → 2021-04-25 | Outpatient (CLI) | payer MEDICARE ==
[~2021-04-25] MED LIST changes: +ADME100I2 SQ; +BARIUM SULFATE 700 MG TABLET (E-Z-DISK) As Ordered ONE; +E-Z-PAQUE 96% w/w SUSP 176GM BTL As Ordered ONE; +INSU100I28 SQ; +LISI20TA33 GT; +SIMV20TA22 GT; +VARIBAR NECTAR 40% w/v 240ML SUSP BTL As Ordered ONE; +VARIBAR PUDDING 40% w/v 230ML TUBE As Ordered ONE
== END ==
LOC: M RAD 11:15
PROVIDERS: ATTEND Internal Medicine
DX: Z53.9 Procedure and treatment not carried out, unspecified reason (principal)

== ENCOUNTER 2021-11-14 12:52 | Inpatient (IN) | payer MEDICARE ==
[~2021-11-14] VITALS: Ht 165.1 cm; Wt 73.1 kg
[~2021-11-14 12:52] MED LIST changes: -ACET-907 GT; +ACET-907 PO; +ADME100I2 SC; -ASPI1CHW3 GT; +ASPI1CHW3 PO; -BARIUM SULFATE 700 MG TABLET (E-Z-DISK) As Ordered ONE; +CLAR10CA3 PO; -D31000TA2 PO; +DICL20GE TOP; -E-Z-PAQUE 96% w/w SUSP 176GM BTL As Ordered ONE; -FURO40TA2 GT; -LISI-898 PO; +LISI5TAB11 PO; +MELO5CAP2 PO; -VARIBAR NECTAR 40% w/v 240ML SUSP BTL As Ordered ONE; -VARIBAR PUDDING 40% w/v 230ML TUBE As Ordered ONE; +VITA100093 PO
[2021-11-14] MEDS ORDERED: ONDANSETRON 4MG/2ML VIAL IV ONE (13:10)
[2021-11-14] MEDS ORDERED: LORA-674 PO (13:54)
[2021-11-14] MEDS ORDERED: VENL150C43 PO (13:54)
[2021-11-14] MEDS ORDERED: ACET1TAB55 PO (13:54)
[2021-11-14] MEDS ORDERED: OMEP40CA4 PO (13:54)
[2021-11-14] MEDS ORDERED: ISOVUE-370 76% 100ML VIAL As Ordered ONE (13:54)
[2021-11-14] MEDS ORDERED: MILKSUS3 PO (13:54)
[2021-11-14] MEDS ORDERED: OXYC10TA12 PO (13:54)
[2021-11-14] MEDS ORDERED: TRAM50TA2 PO (13:54)
[2021-11-14] MEDS ORDERED: LISI5TAB11 PO (13:54)
[2021-11-14] MEDS ORDERED: HOME MED LIST COMPLETE! XX SCH (13:55)
[2021-11-14 13:56] LABS: BASO % 0.2 % (0.0-1.0); HEMATOCRIT 30.5 % (36.0-47.0); HEMOGLOBIN 9.9 g/dl (12.0-15.5); LYMPH # 0.6 10^3/uL (1.5-5.0); LYMPH % 3.2 % (24.0-44.0); MEAN CORPUSCULAR HEMOGLOBIN 30.3 pg (27.0-33.0); MEAN CORPUSCULAR HGB CONC 32.5 g/dl (32.0-36.5); MEAN CORPUSCULAR VOLUME 93.3 fl (80.0-96.0); MONO # 1.4 10^3/uL (0.0-0.8); MONO % 7.4 % (2.0-8.0); NEUTROPHILS # 16.4 10^3/uL (1.5-8.5); NEUTROPHILS % 88.3 % (36.0-66.0); PLATELET COUNT, AUTOMATED 229 10^3/uL (150-450); RED BLOOD COUNT 3.27 10^6/uL (4.00-5.40); WHITE BLOOD COUNT 18.6 10^3/uL (4.0-10.0)
[2021-11-14 14:36] LABS: ALBUMIN 1.9 GM/DL (3.2-5.2); BILIRUBIN,DIRECT 0.2 MG/DL (0.0-0.2); BILIRUBIN,TOTAL 0.4 MG/DL (0.2-1.0); TOTAL PROTEIN 5.8 GM/DL (6.4-8.2)
[2021-11-14] MEDS ORDERED: AZITHROMYCIN INJ 500 MG, VIAL MATE ADAPTER 1 EACH in NS 250 ML IV ONE (15:05)
[2021-11-14] MEDS ORDERED: cefTRIAXone SOD 1 GM in D5W MINI-BAG PLUS 50 ML IV ONE (15:05)
[2021-11-14] MEDS ORDERED: GLUCOSE 4GM CHEW TABLET PO PRN (16:15)
[2021-11-14] MEDS ORDERED: MOM 30ML SUSPENSION UDC PO PRN (16:15)
[2021-11-14] MEDS ORDERED: GLUCAGON INJ 1MG VIAL SC PRN (16:15)
[2021-11-14] MEDS ORDERED: DEXTROSE 50% 50 ML SYRINGE IV PRN (16:15)
[2021-11-14] MEDS ORDERED: ACETAMINOPHEN TAB 650MG DOSE (2X325MG) PO PRN (16:15)
[2021-11-14] MEDS ORDERED: MAALOX 30 ML SUSP *UDC PO PRN (16:15)
[2021-11-14] MEDS ORDERED: CYCLOBENZAPRINE 5MG TABLET PO PRN (16:15)
[2021-11-14] MEDS ORDERED: BISACODYL 10 MG SUPP PR ONE (16:55)
[2021-11-14] MEDS ORDERED: MIRALAX *UNIT DOSE* 17GM PACKET PO PRN (16:55)
[2021-11-14] MEDS ORDERED: NS 1,000 ML IV SCH (17:00)
[2021-11-14 17:06] LABS: RSV AMPLIFICATION NEGATIVE (NEGATIVE)
[2021-11-14] MEDS: HumaLOG INSULIN (NovoLOG) PER UNIT SC SCH ×2 (17:30→21:00)
[2021-11-14] MEDS: DOXYCYCLINE HYCLATE 100 MG in D5W MINI-BAG PLUS 100 ML IV SCH (17:39)
[2021-11-14 18:01] LABS: INR 1.28; PROTHROMBIN TIME 16.4 SECONDS (12.7-14.5)
[2021-11-14 18:14] LABS: CK-MB VALUE MASS 5.5 NG/ML (<3.6); MB/CK RELATIVE INDEX 9.82 (< OR =4)
[2021-11-14 20:28] LABS: CALCIUM LEVEL 8.8 MG/DL (8.8-10.2); CREATININE FOR GFR 1.52 MG/DL (0.55-1.30); GLOMERULAR FILTRATION RATE 35.3 (>39); MAGNESIUM LEVEL 2.3 MG/DL (1.8-2.4); POTASSIUM SERUM 4.4 MEQ/L (3.5-5.1)
[2021-11-14 20:33] LABS: CK-MB VALUE MASS 5.8 NG/ML (<3.6); MB/CK RELATIVE INDEX 9.51 (< OR =4)
[2021-11-14] MEDS ORDERED: FUROSEMIDE 40MG/4ML VIAL (J1940) IV ONE (20:35)
[2021-11-14] MEDS ORDERED: amLODIPine 5 MG TAB PO SCH (21:00)
[2021-11-14 22:30] VITALS: BP 133/60
[2021-11-14] MEDS: guaiFENesin ER 600 MG TAB PO SCH (23:28)
[2021-11-14] MEDS: DOCUSATE SODIUM 100MG CAPSULE PO SCH (23:28)
[2021-11-14 23:29] VITALS: BP 133/60
[2021-11-14] MEDS: LEVEMIR (INSULIN DETEMIR) 1 UNITS/0.01ML SC SCH (23:29)
[2021-11-14] MEDS: HEPARIN SOD (PORCINE) 5000UNITS/ML 1ML VIAL/SYRINGE SC SCH (23:29)
[2021-11-14] MEDS: MORPHINE 2 MG/ML 1ML VIAL IV PRN (23:34)
[2021-11-15 00:20] VITALS: BP 129/60
[2021-11-15 00:22] LABS: CK-MB VALUE MASS 6.6 NG/ML (<3.6); MB/CK RELATIVE INDEX 10.82 (< OR =4)
[2021-11-15 04:26] VITALS: BP 123/60
[2021-11-15] MEDS: DOXYCYCLINE HYCLATE 100 MG in D5W MINI-BAG PLUS 100 ML IV SCH ×2 (05:23→17:03)
[2021-11-15] MEDS: HEPARIN SOD (PORCINE) 5000UNITS/ML 1ML VIAL/SYRINGE SC SCH ×3 (05:24→21:34)
[2021-11-15] MEDS: MORPHINE 2 MG/ML 1ML VIAL IV PRN ×2 (05:29→05:47)
[2021-11-15 05:43] LABS: BASO % 0.2 % (0.0-1.0); EOS % 0.1 % (0.0-3.0); HEMATOCRIT 28.2 % (36.0-47.0); LYMPH # 0.7 10^3/uL (1.5-5.0); LYMPH % 4.6 % (24.0-44.0); MEAN CORPUSCULAR HEMOGLOBIN 29.7 pg (27.0-33.0); MEAN CORPUSCULAR HGB CONC 31.9 g/dl (32.0-36.5); MEAN CORPUSCULAR VOLUME 93.1 fl (80.0-96.0); MONO # 1.2 10^3/uL (0.0-0.8); MONO % 7.2 % (2.0-8.0); NEUTROPHILS # 14.1 10^3/uL (1.5-8.5); PLATELET COUNT, AUTOMATED 208 10^3/uL (150-450); RED BLOOD COUNT 3.03 10^6/uL (4.00-5.40); WHITE BLOOD COUNT 16.2 10^3/uL (4.0-10.0)
[2021-11-15 06:08] LABS: ALBUMIN 1.8 GM/DL (3.2-5.2); BILIRUBIN,TOTAL 0.4 MG/DL (0.2-1.0); CALCIUM LEVEL 8.4 MG/DL (8.8-10.2); CREATININE FOR GFR 1.65 MG/DL (0.55-1.30); GLOMERULAR FILTRATION RATE 32.1 (>39); MAGNESIUM LEVEL 2.2 MG/DL (1.8-2.4); TOTAL PROTEIN 5.6 GM/DL (6.4-8.2)
[2021-11-15 06:35] LABS: CK-MB VALUE MASS 6.6 NG/ML (<3.6)
[2021-11-15] MEDS: HumaLOG INSULIN (NovoLOG) PER UNIT SC SCH ×4 (07:30→20:40)
[2021-11-15 08:09] VITALS: BP 133/61
[2021-11-15] MEDS ORDERED: LORATADINE 10 MG TAB PO SCH (09:00)
[2021-11-15 10:14] LABS: PH BODY FLUID 7.632 UNITS (NOT ESTABLISHED); SOURCE, BODY FLUID pH PLEURAL
[2021-11-15 10:24] LABS: APPEARANCE, BODY FLUID CLEAR (CLEAR); PLEURAL FL COLOR PALE YELLOW (COLORLESS); SOURCE, BODY FLUID PLEURAL
[2021-11-15 10:31] LABS: AMYLASE, BODY FLUID 10 U/L (NOT ESTABLISHED); CHOLESTEROL, BODY FLUID < 50 MG/DL (NOT ESTABLISHED); LDH, BODY FLUID 86 U/L (NOT ESTABLISHED); SOURCE, BODY FLUID ALBUMIN PLEURAL; SOURCE, BODY FLUID AMYLASE PLEURAL; SOURCE, BODY FLUID CHOL PLEURAL; SOURCE, BODY FLUID GLUCOSE PLEURAL; SOURCE, BODY FLUID LDH PLEURAL; SOURCE, BODY FLUID TOT PROTEIN PLEURAL; SOURCE, BODY FLUID TRIG PLEURAL; TRIGLYCERIDE, BODY FLUID 19 MG/DL (NOT ESTABLISHED)
[2021-11-15 11:10] VITALS: BP 127/57
[2021-11-15] MEDS: LEVEMIR (INSULIN DETEMIR) 1 UNITS/0.01ML SC SCH ×2 (11:31→20:45)
[2021-11-15] MEDS: FUROSEMIDE 100MG/10ML VIAL (J1940) IV SCH ×2 (13:51→17:03)
[2021-11-15] MEDS: guaiFENesin ER 600 MG TAB PO SCH ×2 (13:52→20:51)
[2021-11-15] MEDS: ASPIRIN 81 MG CHEW TABLET PO SCH (13:53)
[2021-11-15] MEDS: DOCUSATE SODIUM 100MG CAPSULE PO SCH ×2 (13:53→20:51)
[2021-11-15] MEDS: VENLAFAXINE **XR** 75MG CAPSULE PO SCH (13:54)
[2021-11-15] MEDS: OMEPRAZOLE 20MG CAP PO SCH (13:54)
[2021-11-15] MEDS: cefTRIAXone SOD 1 GM in D5W MINI-BAG PLUS 50 ML IV SCH (15:00)
[2021-11-15 15:42] VITALS: BP 131/66
[2021-11-15 20:00] VITALS: BP 127/59
[2021-11-15] MEDS ORDERED: MORPHINE 2 MG/ML 1ML VIAL IV PRN (20:15)
[2021-11-15] MEDS ORDERED: METOPROLOL TART 25 MG TABLET PO SCH (21:00)
[2021-11-15] MEDS: BISACODYL 10 MG SUPP PR SCH (21:34)
[2021-11-16] VITALS: BP 116/77
[2021-11-16 04:00] VITALS: BP 135/86
[2021-11-16 04:17] LABS: BASO % 0.2 % (0.0-1.0); EOS % 0.2 % (0.0-3.0); HEMATOCRIT 29.4 % (36.0-47.0); HEMOGLOBIN 9.2 g/dl (12.0-15.5); LYMPH # 1.1 10^3/uL (1.5-5.0); LYMPH % 8.7 % (24.0-44.0); MEAN CORPUSCULAR HEMOGLOBIN 29.7 pg (27.0-33.0); MEAN CORPUSCULAR HGB CONC 31.3 g/dl (32.0-36.5); MEAN CORPUSCULAR VOLUME 94.8 fl (80.0-96.0); MONO # 1.1 10^3/uL (0.0-0.8); NEUTROPHILS # 9.7 10^3/uL (1.5-8.5); NEUTROPHILS % 80.8 % (36.0-66.0); PLATELET COUNT, AUTOMATED 223 10^3/uL (150-450); WHITE BLOOD COUNT 12.1 10^3/uL (4.0-10.0)
[2021-11-16 04:37] LABS: ALBUMIN 1.7 GM/DL (3.2-5.2); BILIRUBIN,TOTAL 0.4 MG/DL (0.2-1.0); CALCIUM LEVEL 8.7 MG/DL (8.8-10.2); CREATININE FOR GFR 2.12 MG/DL (0.55-1.30); MAGNESIUM LEVEL 2.3 MG/DL (1.8-2.4); PHOSPHORUS LEVEL 4.6 MG/DL (2.5-4.9); POTASSIUM SERUM 4.5 MEQ/L (3.5-5.1); TOTAL PROTEIN 5.7 GM/DL (6.4-8.2)
[2021-11-16] MEDS: DOXYCYCLINE HYCLATE 100 MG in D5W MINI-BAG PLUS 100 ML IV SCH (05:00)
[2021-11-16] MEDS: HEPARIN SOD (PORCINE) 5000UNITS/ML 1ML VIAL/SYRINGE SC SCH ×2 (05:00→14:08)
[2021-11-16 07:30] VITALS: BP 145/68
[2021-11-16] MEDS: HumaLOG INSULIN (NovoLOG) PER UNIT SC SCH ×2 (07:30→11:13)
[2021-11-16] MEDS: BISACODYL 10 MG SUPP PR SCH (09:00)
[2021-11-16] MEDS: VENLAFAXINE **XR** 75MG CAPSULE PO SCH ×2 (09:00→09:15)
[2021-11-16] MEDS ORDERED: MOM 30ML SUSPENSION UDC PO SCH (09:00)
[2021-11-16] MEDS: DOCUSATE SODIUM 100MG CAPSULE PO SCH ×2 (09:00→09:14)
[2021-11-16] MEDS: OMEPRAZOLE 20MG CAP PO SCH (09:14)
[2021-11-16] MEDS: LEVEMIR (INSULIN DETEMIR) 1 UNITS/0.01ML SC SCH (09:14)
[2021-11-16] MEDS: guaiFENesin ER 600 MG TAB PO SCH (09:15)
[2021-11-16] MEDS: FUROSEMIDE 100MG/10ML VIAL (J1940) IV SCH (09:15)
[2021-11-16] MEDS: ASPIRIN 81 MG CHEW TABLET PO SCH (11:12)
[2021-11-16 11:25] VITALS: BP 139/63
[2021-11-16 13:17] LABS: C REACTIVE PROTEIN QUANTITATIV 36.9 MG/DL (0.00-0.30)
[2021-11-16 13:41] LABS: C REACTIVE PROTEIN QUANTITATIV 24.4 MG/DL (0.00-0.30)
[2021-11-16] MEDS: cefTRIAXone SOD 1 GM in D5W MINI-BAG PLUS 50 ML IV SCH (14:08)
[2021-11-16] MEDS ORDERED: FLUID PLACE HOLDER IV SCH (14:30)
[2021-11-16] MEDS ORDERED: ACYCLOVIR IV SCH ×2 (14:30→18:00)
[2021-11-16] MEDS ORDERED: VANCOMYCIN HCL 1,000 MG in IV FLUID PLACE HOLDER 1 EA IV SCH (14:30)
[2021-11-16] MEDS ORDERED: VANCOMYCIN INTERMITTENT/PULSE DOSING BY CLINICAL PHARMACIST PER DOSING PROTOCOL XX SCH (15:15)
[2021-11-16] MEDS ORDERED: VANCOMYCIN HCL 1,000 MG, VIAL MATE ADAPTER 1 EACH in NS 250 ML IV ONE (16:00)
[2021-11-16 16:15] VITALS: BP 128/60
[2021-11-16] MEDS ORDERED: ACETAMINOPHEN 650 MG SUPP PR PRN (16:30)
[2021-11-16] MEDS ORDERED: LORazepam 2 MG/ML VIAL IV PRN (16:40)
[2021-11-16] MEDS ORDERED: SCOPOLAMINE 1MG TRANSDERMAL PATCH TOP PRN (16:40)
[2021-11-16] MEDS ORDERED: AMPICILLIN SOD 2 GM in D5W MINI-BAG PLUS 100 ML IV SCH (17:00)
[2021-11-16] MEDS ORDERED: NS IV SCH (18:00)
[2021-11-18] MEDS: MORPHINE 2 MG/ML 1ML VIAL IV PRN ×4 (07:16→14:41)
[2021-11-18 09:24] LABS: TOTAL 25(OH) VITAMIN D 23.4 NG/ML (30.0-100.0)
[2021-11-19] MEDS ORDERED: HYOS125TA PO (10:21)
[2021-11-19] MEDS ORDERED: MORP1SOL5 PO (10:21)
[2021-11-19] MEDS ORDERED: ATIV1TAB10 PO (10:21)
[2021-11-19] MEDS: MORPHINE 2 MG/ML 1ML VIAL IV PRN (12:42)
== END 2021-11-19 12:56 | DRG 193 ==
LOC: EDBD 12:52 → M ED 12:52 → M ED INP 16:14 → M PCU 22:30 → M MSPAV 11-18 16:08
PROVIDERS: ADMIT Internal Medicine; ATTEND Family Medicine
PROC: 0W9B30Z Drainage of Left Pleural Cavity with Drainage Device, Percutaneous Approach (ICD-10-PCS; principal; 2021-11-15 08:00)
DX: J18.9 Pneumonia, unspecified organism (principal); G93.41 Metabolic encephalopathy; N17.0 Acute kidney failure with tubular necrosis; I13.0 Hypertensive heart and chronic kidney disease with heart failure and stage 1 through stage 4 chronic kidney disease, or unspecified chronic kidney disease; C78.00 Secondary malignant neoplasm of unspecified lung; J90 Pleural effusion, not elsewhere classified; I50.32 Chronic diastolic (congestive) heart failure; C78.2 Secondary malignant neoplasm of pleura; I24.8 Other forms of acute ischemic heart disease; S22.080A Wedge compression fracture of T11-T12 vertebra, initial encounter for closed fracture; C50.911 Malignant neoplasm of unspecified site of right female breast; I08.0 Rheumatic disorders of both mitral and aortic valves; J45.909 Unspecified asthma, uncomplicated; D64.9 Anemia, unspecified; N18.30 Chronic kidney disease, stage 3 unspecified; I27.20 Pulmonary hypertension, unspecified; E11.22 Type 2 diabetes mellitus with diabetic chronic kidney disease; K21.9 Gastro-esophageal reflux disease without esophagitis; I45.10 Unspecified right bundle-branch block; K59.00 Constipation, unspecified; E78.5 Hyperlipidemia, unspecified; Z88.8 Allergy status to other drugs, medicaments and biological substances; Z98.41 Cataract extraction status, right eye; Z98.42 Cataract extraction status, left eye; W18.30XA Fall on same level, unspecified, initial encounter; Y92.009 Unspecified place in unspecified non-institutional (private) residence as the place of occurrence of the external cause; Z66 Do not resuscitate; Z92.21 Personal history of antineoplastic chemotherapy; Z92.3 Personal history of irradiation